=== PATIENT | male | born 1980 | race Caucasian/White ===

== ENCOUNTER 2022-08-27 14:10 | Emergency (ER) | payer MEDICAID ==
[~2022-08-27] VITALS: Ht 172.7 cm; Wt 82.0 kg
[2022-08-27 15:20] VITALS: BP 108/71
== END 2022-08-27 15:52 | disposition left against medical advice (07) ==
LOC: ER 14:10
DX: M25.562 Pain in left knee (principal); M25.552 Pain in left hip; R07.89 Other chest pain; M25.511 Pain in right shoulder; Z53.21 Procedure and treatment not carried out due to patient leaving prior to being seen by health care provider

== ENCOUNTER 2022-09-26 00:31 | Emergency (ER) | payer MEDICAID ==
[2022-09-26 03:28] VITALS: BP 145/98
[2022-09-26] MEDS ORDERED: ACETAMINOPHEN/CODEINE#3 (300/30mg) TAB PO ONE (03:45)
[2022-09-26] MEDS ORDERED: ACE3T PO ×3 (05:03→05:22)
== END 2022-09-26 05:57 | disposition left against medical advice (07) ==
LOC: ER 00:31
DX: S09.8XXA Other specified injuries of head, initial encounter (principal); K08.89 Other specified disorders of teeth and supporting structures; G62.9 Polyneuropathy, unspecified; X58.XXXA Exposure to other specified factors, initial encounter; Y93.89 Activity, other specified; Y92.89 Other specified places as the place of occurrence of the external cause; Y99.8 Other external cause status
CPT/HCPCS: 70450

== ENCOUNTER 2023-02-25 15:31 | Inpatient (IN) | payer MEDICAID ==
[~2023-02-25] VITALS: Ht 177.8 cm; Wt 78.0 kg
[~2023-02-25 15:31] MED LIST: ACE3T PO
[2023-02-25] MEDS ORDERED: PANTOPRAZOLE 40 MG/10 ML VIAL INJ IV ONE (16:15)
[2023-02-25] MEDS ORDERED: ONDANSETRON HCL 4 MG/2 ML VIAL IV ONE ×2 (16:15→23:30)
[2023-02-25] MEDS ORDERED: KETAMINE 50mg/ML 10ml Vial (500mg/10ml) IV ONE (16:15)
[2023-02-25] MEDS ORDERED: SODIUM CHLORIDE 0.9% 1,000 ML IV ONE ×3 (16:15→17:45)
[2023-02-25 16:48] VITALS: PULSE 104; RESP 15; O2SAT 92
[2023-02-25 17:04] LABS: Basophils # (auto) 0.1 10 ^3/uL (0-0.2); Basophils % (auto) 0.7 % (0.0-2.0); Eosinophils # (auto) 0 10 ^3/uL (0-0.8); Hemoglobin 16.1 g/dL (13.5-17.5); Lymphocytes # (auto) 1.4 10 ^3/uL (0.4-5.4); Lymphocytes % (auto) 10.1 % (10.0-50.0); Mean Corpuscular Hemoglobin 30.6 pg (28.0-32.0); Mean Corpuscular Hgb Conc. 33.6 g/dL (32.0-36.0); Mean Corpuscular Volume 90.9 fL (80.0-100.0); Monocytes # (auto) 0.6 10 ^3/uL (0-1.3); Monocytes % (auto) 4.6 % (0.0-12.0); Neutrophils # (auto) 11.5 10 ^3/uL (1.6-8.6); Neutrophils % (auto) 84.6 % (37.0-80.0); Red Blood Cells 5.28 10^6/uL (4.5-5.90); Red Cell Distribution Width 14.8 % (11.8-14.3); White Blood Cell 13.6 10^3/uL (4.4-10.8)
[2023-02-25 17:19] LABS: INR 1.01 (0.9-1.15); Partial Thromboplastin Time 27.1 SEC (24.5-34.5); Prothrombin Time 10.6 sec (9.3-11.8)
[2023-02-25 17:23] LABS: Alanine Aminotransferase 28 U/L (7-40); Albumin 4.9 g/dL (3.2-4.8); Alkaline Phosphatase 51 U/L (46-116); Aspartate Aminotransferase 67 U/L (13-40); BUN/Creatinine Ratio 6.3 (10.0-20.0); Bilirubin, Total 0.6 mg/dL (0.2-1.0); Blood Alcohol 299.6 mg/dL (<10); Blood Urea Nitrogen 6 mg/dL (9-23); Chloride 110 mmol/L (98-107); Glucose 90 mg/dL (74-106); Potassium 3.8 mmol/L (3.5-5.1); Sodium 143 mmol/L (136-145); Total Protein 7.6 g/dL (5.7-8.2)
[2023-02-25 17:40] LABS: Creatine Kinase IFCC 2878 U/L (46-171)
[2023-02-25] MEDS ORDERED: PROPOFOL 10 MG/ML 20 ML IV ONE (18:15)
[2023-02-25 19:30] VITALS: PULSE 73; RESP 18; O2SAT 100
[2023-02-25] MEDS ORDERED: MORPHINE SULFATE 4 MG/ML SYR/VIAL IV ONE (23:30)
[2023-02-25 23:44] LABS: Urine Bacteria NONE SEEN /hpf (None Seen); Urine Blood Negative /uL (Negative); Urine Clarity Clear (Clear); Urine Protein, UAD Negative (Negative); Urine Specific Gravity 1.009 (1.001-1.035); Urine Urobilinogen Normal (Negative); Urine WBC <1 /hpf (0 - 3)
[2023-02-25 23:45] LABS: Urine Color Straw (Yellow)
[2023-02-26 00:05] LABS: Amphetamine Screen, Urine Neg (NEGATIVE); Barbiturate Scree,Urine Neg (NEGATIVE); Benzodiazephine Screen, Urine Neg (NEGATIVE); Cannabinoid Screen, Urine Pos (NEGATIVE); Cocaine Screen, Urine Neg (NEGATIVE); Opiate Scree,Urine Neg (NEGATIVE); Phencyclidine Screen, Urine Neg (NEGATIVE)
[2023-02-26] MEDS ORDERED: cefTRIAXone 1GM/50ML D5W 50 ML IV ONE (00:30)
[2023-02-26] MEDS ORDERED: DOCUSATE SOD 100 MG CAP PO PRN (00:30)
[2023-02-26] MEDS ORDERED: NITROGLYCERIN 0.4 MG SL TAB SL PRN (00:30)
[2023-02-26] MEDS ORDERED: ACETAMINOPHEN 325 MG TAB PO PRN (00:30)
[2023-02-26] MEDS ORDERED: MORPHINE SULFATE INJ 2 MG/ml SYRG ONE (02:37)
[2023-02-26] MEDS: MORPHINE SULFATE INJ 2 MG/ml SYRG IV PRN ×4 (02:41→22:54)
[2023-02-26] MEDS: ONDANSETRON HCL 4 MG/2 ML VIAL IV PRN ×3 (02:41→22:53)
[2023-02-26] MEDS ORDERED: DIVA1TAB58 PO (03:24)
[2023-02-26 05:00] VITALS: BP 128/79; PULSE 83; RESP 18; TEMP 97.7; O2SAT 92
[2023-02-26] MEDS: HYDROcodone-ACET 5/325MG TAB PO PRN ×4 (06:27→21:14)
[2023-02-26 09:00] VITALS: BP 122/82; PULSE 73; RESP 20; TEMP 98; O2SAT 97
[2023-02-26] MEDS: cefTRIAXone 1GM/50ML D5W 50 ML IV SCH (09:07)
[2023-02-26] MEDS: MULTIPLE VITAMIN TAB PO SCH (09:13)
[2023-02-26] MEDS: PANTOPRAZOLE 40 MG/10 ML VIAL INJ IV SCH (09:13)
[2023-02-26] MEDS: FOLIC ACID 1 MG TAB PO SCH (09:13)
[2023-02-26] MEDS: THIAMINE HCL 100 MG TAB PO SCH (09:13)
[2023-02-26 11:33] LABS: Basophils # (auto) 0.1 10 ^3/uL (0-0.2); Basophils % (auto) 0.5 % (0.0-2.0); Eosinophils # (auto) 0.1 10 ^3/uL (0-0.8); Hematocrit 43.7 % (41.0-53.0); Hemoglobin 14.6 g/dL (13.5-17.5); Lymphocytes # (auto) 1.3 10 ^3/uL (0.4-5.4); Lymphocytes % (auto) 12.9 % (10.0-50.0); Mean Corpuscular Hemoglobin 30.6 pg (28.0-32.0); Mean Corpuscular Hgb Conc. 33.3 g/dL (32.0-36.0); Mean Corpuscular Volume 91.9 fL (80.0-100.0); Monocytes # (auto) 0.8 10 ^3/uL (0-1.3); Monocytes % (auto) 8.4 % (0.0-12.0); Neutrophils # (auto) 7.8 10 ^3/uL (1.6-8.6); Neutrophils % (auto) 77.2 % (37.0-80.0); Nucleated Red Blood Cells % 0.1 %; Red Blood Cells 4.75 10^6/uL (4.5-5.90); Red Cell Distribution Width 14.5 % (11.8-14.3); White Blood Cell 10.1 10^3/uL (4.4-10.8)
[2023-02-26 11:57] LABS: Alanine Aminotransferase 26 U/L (7-40); Albumin 4.2 g/dL (3.2-4.8); Alkaline Phosphatase 49 U/L (46-116); Anion Gap 11.7 (5-15); Aspartate Aminotransferase 61 U/L (13-40); BUN/Creatinine Ratio 7.7 (10.0-20.0); Bilirubin, Total 1.5 mg/dL (0.2-1.0); Blood Urea Nitrogen 6 mg/dL (9-23); Calcium 8.5 mg/dL (8.5-10.1); Carbon Dioxide 20.3 mmol/L (20-30); Chloride 103 mmol/L (98-107); Glucose 94 mg/dL (74-106); Potassium 3.8 mmol/L (3.5-5.1); Total Protein 6.6 g/dL (5.7-8.2)
[2023-02-26] MEDS: FOLIC ACID 1 MG, MULTIPLE VITAMIN 10 ML, MAGNESIUM SULF SDV 50% 8 MEQ, THIAMINE INJ 100... INJ SCH ×5 (12:00)
[2023-02-26 12:01] LABS: Sodium 135 mmol/L (136-145)
[2023-02-26 13:00] VITALS: BP 158/77; PULSE 78; RESP 20; TEMP 98.2; O2SAT 97
[2023-02-26 17:00] VITALS: PULSE 70; RESP 20; TEMP 98.4; O2SAT 98
[2023-02-26 22:00] VITALS: BP 128/80; PULSE 97; RESP 18; TEMP 98.4; O2SAT 93
[2023-02-27] VITALS (7 sets, daily range): BP systolic 116–130; BP diastolic 70–88; PULSE 63–83; RESP 16–18; TEMP 98.3–99; O2SAT 95–99
[2023-02-27] MEDS: ONDANSETRON HCL 4 MG/2 ML VIAL IV PRN ×2 (02:57→06:53)
[2023-02-27] MEDS: MORPHINE SULFATE INJ 2 MG/ml SYRG IV PRN ×5 (02:57→21:27)
[2023-02-27 05:59] LABS: Alanine Aminotransferase 23 U/L (7-40); Albumin 4.2 g/dL (3.2-4.8); Alkaline Phosphatase 49 U/L (46-116); Anion Gap 6.8 (5-15); Aspartate Aminotransferase 45 U/L (13-40); Bilirubin, Total 0.9 mg/dL (0.2-1.0); Calcium 8.5 mg/dL (8.7-10.4); Carbon Dioxide 25.2 mmol/L (20-30); Chloride 102 mmol/L (98-107); Glucose 114 mg/dL (74-106); Potassium 3.3 mmol/L (3.5-5.1); Sodium 134 mmol/L (136-145); Total Protein 6.6 g/dL (5.7-8.2)
[2023-02-27 06:06] LABS: Basophils # (auto) 0.1 10 ^3/uL (0-0.2); Basophils % (auto) 0.5 % (0.0-2.0); Eosinophils # (auto) 0.1 10 ^3/uL (0-0.8); Hematocrit 45.3 % (41.0-53.0); Lymphocytes # (auto) 1.7 10 ^3/uL (0.4-5.4); Lymphocytes % (auto) 14.1 % (10.0-50.0); Mean Corpuscular Hemoglobin 30.4 pg (28.0-32.0); Mean Corpuscular Volume 92.1 fL (80.0-100.0); Monocytes # (auto) 0.9 10 ^3/uL (0-1.3); Monocytes % (auto) 7.7 % (0.0-12.0); Neutrophils # (auto) 9.3 10 ^3/uL (1.6-8.6); Neutrophils % (auto) 76.7 % (37.0-80.0); Red Blood Cells 4.92 10^6/uL (4.5-5.90); Red Cell Distribution Width 14.3 % (11.8-14.3); White Blood Cell 12.1 10^3/uL (4.4-10.8)
[2023-02-27 06:13] LABS: BUN/Creatinine Ratio 6.3 (10.0-20.0); Blood Urea Nitrogen < 5 mg/dL (9-23)
[2023-02-27] MEDS: HYDROcodone-ACET 5/325MG TAB PO PRN ×2 (09:46→19:34)
[2023-02-27] MEDS: THIAMINE HCL 100 MG TAB PO SCH (09:46)
[2023-02-27] MEDS: FOLIC ACID 1 MG TAB PO SCH (09:46)
[2023-02-27] MEDS: cefTRIAXone 1GM/50ML D5W 50 ML IV SCH (09:47)
[2023-02-27] MEDS: PANTOPRAZOLE 40 MG/10 ML VIAL INJ IV SCH (09:47)
[2023-02-27] MEDS: MULTIPLE VITAMIN TAB PO SCH (09:47)
[2023-02-27] MEDS: FOLIC ACID 1 MG, MULTIPLE VITAMIN 10 ML, MAGNESIUM SULF SDV 50% 8 MEQ, THIAMINE INJ 100... INJ SCH ×5 (13:21)
[2023-02-28] VITALS (7 sets, daily range): BP systolic 115–133; BP diastolic 68–90; PULSE 65–92; RESP 17–21; TEMP 98–98.5; O2SAT 95–98
[2023-02-28] MEDS: MORPHINE SULFATE INJ 2 MG/ml SYRG IV PRN ×7 (01:31→21:39)
[2023-02-28] MEDS: ONDANSETRON HCL 4 MG/2 ML VIAL IV PRN (05:43)
[2023-02-28] MEDS: PANTOPRAZOLE 40 MG/10 ML VIAL INJ IV SCH (10:03)
[2023-02-28] MEDS: cefTRIAXone 1GM/50ML D5W 50 ML IV SCH (10:03)
[2023-02-28] MEDS: THIAMINE HCL 100 MG TAB PO SCH (10:07)
[2023-02-28] MEDS: MULTIPLE VITAMIN TAB PO SCH (10:07)
[2023-02-28] MEDS: FOLIC ACID 1 MG TAB PO SCH (10:08)
[2023-02-28] MEDS: FOLIC ACID 1 MG, MULTIPLE VITAMIN 10 ML, MAGNESIUM SULF SDV 50% 8 MEQ, THIAMINE INJ 100... INJ SCH ×5 (13:20)
[2023-02-28] MEDS: HYDROcodone-ACET 5/325MG TAB PO PRN (20:34)
== END 2023-02-28 22:16 | disposition short-term general hospital (02) | DRG 342 ==
LOC: ER 15:31 → EDBD 15:31 → OVERFLOW 02-26 00:26 → CENTRAL 02-26 03:10
PROVIDERS: ADMIT Nurse Practitioner Family; ATTEND Nurse Practitioner Acute Care
PROC: 0RSMXZZ Reposition Left Elbow Joint, External Approach (ICD-10-PCS; principal; 2023-02-26)
DX: S53.105A Unspecified dislocation of left ulnohumeral joint, initial encounter (principal); M62.82 Rhabdomyolysis; R65.10 Systemic inflammatory response syndrome (SIRS) of non-infectious origin without acute organ dysfunction; E87.1 Hypo-osmolality and hyponatremia; D72.829 Elevated white blood cell count, unspecified; F10.129 Alcohol abuse with intoxication, unspecified; G56.32 Lesion of radial nerve, left upper limb; Z82.5 Family history of asthma and other chronic lower respiratory diseases; W18.39XA Other fall on same level, initial encounter; Y93.89 Activity, other specified; Y92.098 Other place in other non-institutional residence as the place of occurrence of the external cause; Y99.8 Other external cause status
CPT/HCPCS: 24600; 36415; 70450; 71045; 73070; 73080; 80053; 80307; 80320; 81001; 82550; 83735; 84484; 85025; 85610; 85730; 96361; 96365; 96375; 96376; 99291; C9113; G0378; J0696; J2405; J2704

== ENCOUNTER 2023-08-15 23:29 | Emergency (ER) | payer MEDICAID ==
[~2023-08-15] VITALS: Ht 175.3 cm; Wt 68.0 kg
[~2023-08-15 23:29] MED LIST changes: -ACE3T PO; +DIVA1TAB58 PO
[2023-08-16] MEDS: MORPHINE SULFATE INJ 2 MG/ml SYRG IM ONE (02:47)
[2023-08-16] MEDS: ONDANSETRON ODT 4 MG TAB PO ONE (02:47)
[2023-08-16 04:06] VITALS: BP 137/80; PULSE 81; RESP 18; TEMP 98.8; O2SAT 99
[2023-08-16] MEDS ORDERED: CYCL-837 PO (04:09)
== END 2023-08-16 04:25 | disposition home or self-care (01) ==
LOC: ER 23:29
DX: S16.1XXA Strain of muscle, fascia and tendon at neck level, initial encounter (principal); S29.012A Strain of muscle and tendon of back wall of thorax, initial encounter; S39.012A Strain of muscle, fascia and tendon of lower back, initial encounter; R51.9 Headache, unspecified; W01.0XXA Fall on same level from slipping, tripping and stumbling without subsequent striking against object, initial encounter; Y93.89 Activity, other specified; Y92.091 Bathroom in other non-institutional residence as the place of occurrence of the external cause; Y99.8 Other external cause status
CPT/HCPCS: 70450; 72125; 72128; 72131; 96372; 99285; J2270; Q0162

== ENCOUNTER 2024-12-17 11:32 | Inpatient (IN) | payer MEDICAID ==
[~2024-12-17] VITALS: Ht 177.8 cm; Wt 75.8 kg
[~2024-12-17 11:32] MED LIST changes: +CYCL-837 PO
--- NOTE | 2024-12-17 11:45 | ED.PDOC ---
GI ASSESSMENT HPI Comments 44 y.o male presents diaphoretic to the ED via EMS for a chief complaint of RLQ pain that started a couple hour ago while passing a BM. Patient describes pain as sharp, radiating to his back, is constant with a 10/10 pain level. Patient denies any nausea, vomiting, diarrhea, fever, chills. Patient has worse pain on palpation with no alleviating factors despite EMS administrating 1 gram of Tylenol alongside 4mg of Zofran en route. Patient has a medical history of gout and seizures. He reports occasional use of marijuana and alcohol but no tobacco use. Time Seen by MD: 11:36 Primary Care Provider: MARIBELL Reviewed Notes: Nurses Notes, Lawn Care Specialist Notes, Medications, Allergies Allergies: Coded Allergies: NO KNOWN ALLERGIES (Unverified , 09/26/22) Home Meds Active Scripts Cyclobenzaprine Hcl (Cyclobenzaprine Hcl) 5 Mg Tab, 1 TAB PO QHSP, #14 TAB 0 Refills Prov:HARRY QUIROZ 08/16/23 Reported Medications Divalproex Sodium (Divalproex Sodium Dr) 250 Mg Tab, 1 TAB PO BID 02/26/23 Information Source: Patient, Emergency Med Personnel Mode of Arrival: EMS Timing: Hours Duration: Since onset Prehospital treatment: Pain Meds (1 gram of Tylenol ), Treatment (4mg of Zofran PO) Quality: Sharp Vomitus: None Stool: Normal Severity: Moderate Recent: None Recent Hx of: None Pain Location: RLQ Modifying Factors: Nothing Associated sign and symptoms: Abdominal Pain Past Medical History PAST MEDICAL HISTORY: Gout, Seizures Surgical History: Denies all surgeries Family History Family History: Unknown Social History Smoker: Non-Smoker Alcohol: Occasionally Drugs: Marijuana Lives In: Home Constitutional: reports: diaphoresis; denies: chills, fatigue, fever, malaise, sweats, weakness, others EENTM: denies: blurred vision, double vision, ear bleeding, ear discharge, ear drainage, ear pain, ear ringing, eye pain, eye redness, hearing loss, mouth pain, mouth swelling, nasal discharge, nose bleeding, nose congestion, nose pain, photophobia, tearing, throat pain, throat swelling, voice changes, others Respiratory: denies: cough, hemoptysis, orthopnea, SOB at rest, shortness of breath, SOB with excertion, stridor, wheezing, others Cardiovascular: denies: chest pain, dizzy spells, diaphoresis, Dyspnea on exertion, edema, irregular heart beat, left arm pain, lightheadedness, palpitat ions, PND, syncope, others Gastrointestinal: reports: abdominal pain; denies: abdomen distended, blood streaked bowels, constipated, diarrhea, dysphagia, difficulty swallowing, hematemesis, melena, nausea, poor appetite, poor fluid intake, rectal bleeding, rectal pain, vomiting, others Genitourinary: denies: burning, dysuria, flank pain, frequency, hematuria, incontinence, penile discharge, penile sore, pain, testicle pain, testicle swelling, urgency, others Neurological: denies: dizziness, fainting, headache, left sided numbness, left sided weakness, numbness, paresthesia, pre-existing deficit, right sided numbness, right sided weakness, seizure, speech problems, tingling, tremors, weakness, others Musculoskeletal: denies: back pain, gout, joint pain, joint swelling, muscle p ain, muscle stiffness, neck pain, others Integumetry: denies: bruises, change in color, change in hair/nails, dryness, laceration, lesions, lumps, rash, wounds, others Allergic/Immunocompromised: denies: Difficulty Healing, Frequent Infections, Hives, Itching, others Hematologic/Lymphatic: denies: anemia, blood clots, easy bleeding, easy bruising, swollen glands, others Endocrine: denies: excessive hunger, excessive sweating, excessive thirst, excessive urination, flushing, intolerance to cold, intolerance to heat, unexplained weight gain, unexplained weight loss, others Psychiatric: denies: anxiety, bipolar disorder, depression, hopeless, panic disorder, schizophrenia, sleepless, suicidal, others All Other Systems: Reviewed and Negative Physical Exam General Appearance: Moderate Distress HEENT: Normal ENT Inspection, Pharynx Normal, TMs Normal Neck: Full Range of Motion, Non-Tender, Normal, Normal Inspection Respiratory: Chest Non-Tender, Lungs Clear, No Accessory Muscle Use, No Respiratory Distress, Normal Breath Sounds Cardiovascular: No Edema, No JVD, No Murmur, No Gallop, Normal Peripheral Pulses, Regular Rate/Rhythm Breast Exam: Deferred Gastrointestinal: No Organomegaly, Non Tender, No Pulsatile Mass, Normal Bowel Sounds, Soft Genitalia: Deferred Pelvic: Deferred Rectal: Deferred Extremities: No calf tenderness, Normal capillary refill, No pedal edema Musculoskeletal : Apperance: Normal Neurologic: general office assistant II-XII nml as Tested, No Motor Deficits, Normal Affect, Normal Mood, No Sensory Deficits, Other (The patient is answering questions but is extremely anxious and seems to be in a significant amount of pain. The patient is somewhat diaphoretic) Cerebellar Function: Unable to Test Reflexes: Normal Skin: Diaphoresis, Pallor, Other (Cool to touch) Lymphatic: No Adenopathy EKG EKG : Pulse Rate (adult): 125 [place]: Normal Cardiac Rhythm: ST ST: Normal Was a procedure done? 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) Indication: Hypotension, CVP monitoring, Volume resuscitation, Suspected infection Room prepared for procedure: Yes Community Association Manager performed hand hygien: Yes Maximal sterile barrier precau: Mask/Eye shield, Sterile gown, Cap, Sterlie gloves, Large sterlie drape Skin Preparation: Chlorhexidine gluconate Skin preparation completely dr: Yes Insertion site: Right, Internal jugular Central line catheter type: [id number] Number of lumens: 3 Central line exchanged over a: No Antiseptic ointment applied to: Yes Post Assessment: Chest X-Ray, Proper placement, No Pneumothorax Informed consent obtained: No Risks/benefits/alt described: No Intubation Indication: Respiratory Insufficiency Prep: Preoxygenation Pretreated with: Sedation (Etomidate 20 mg IV push) Medicated with: Vecuronium (50 mg IV push) Intubation Approach: Orotracheal Intubation size: cm (8.0) Informed consent obtained: No Risks/benefits/alt described: No GI differential Dx Differential Diagnosis: AAA, Appendicitis, Bowel Obstruction, Gastroenteritis X-Ray, Labs, Meds, VS Vital Signs Date Time Temp Pulse Resp B/P (MAP) Pulse Ox O2 Delivery O2 Flow Rate FiO2 12/17/24 17:33 157 12/17/24 17:30 100.3 170 19 176/131 (146) 99 100.3 12/17/24 17:26 174 12/17/24 17:15 100.3 150 21 166/123 (137) 100 100.3 12/17/24 17:10 100.3 153 24 160/117 (131) 100 100.3 12/17/24 17:06 160/117 12/17/24 17:05 133 45 147/109 (122) 99 12/17/24 17:05 147/109 12/17/24 16:27 56 12/17/24 15:30 136 25 142/105 (117) 94 12/17/24 15:06 100 22 133/101 12/17/24 14:36 100 22 133/101 12/17/24 14:00 100 22 133/101 (112) 97 12/17/24 13:08 62 47 141/100 12/17/24 12:58 102 37 128/88 (101) 95 12/17/24 12:38 81 26 145/103 12/17/24 12:37 145/103 12/17/24 12:32 81 26 145/103 12/17/24 12:30 80 22 145/103 (117) 95 12/17/24 12:10 98.2 98 18 159/102 (121) 98 98.2 12/17/24 12:04 65 21 124/102 12/17/24 12:00 Nasal Cannula* 2 28 12/17/24 12:00 98.2 65 21 124/102 (109) 98 98.2 Lab Test 12/17/24 15:25 12/17/24 13:20 12/17/24 13:13 12/17/24 13:09 Range/Units Troponin I High Sensitivity < 3 L < 3 L </=54 ng/L Urine Color Yellow Yellow Urine Clarity Clear Clear Urine pH 6.0 5.0-9.0 Urine Specific [place] < 1.050 H 1.001-1.035 Urine Protein Negative Negative Urine Ketones Trace Negative Urine Blood Negative Negative /uL Urine Nitrite Negative Negative Urine Bilirubin Negative Negative Urine Urobilinogen Normal Negative mg/dL Urine Leukocyte Esterase Negative Negative /uL Urine RBC 1 0 - 3 /hpf Urine Microscopic WBC 1 0-3 /HPF Urine Squamous Epithelial Cells None seen <5 /hpf Urine Bacteria None seen None Seen /hpf Urine Mucus Few None Seen Urine Glucose Normal Normal mg/dL Blood Gas Specimen Type Arterial Blood Gas Sample Site Left radial Blood Gas Patient Temperature 37.0 Arterial Blood Date Drawn [id number] Arterial Blood pH 7.403 7.350-7.450 Arterial Blood Partial Pressure CO2 33.4 L 35.0-48.0 mmHg Arterial Blood Partial Pressure O2 106.2 83.0-108.0 mmHg Arterial Blood HCO3 20.4 L 21.0-28.0 mmol/L Arterial Blood Oxygen Saturation 97.3 94.0-98.0 % Arterial Blood Base Excess -3.2 L -2.0-3.0 mmol/L Arterial Blood Oxyhemoglobin 96.4 94.0-98.0 % Arterial Blood Carboxyhemoglobin 0.3 L 0.5-1.5 % Arterial Blood Methemoglobin 0.6 0.0-1.5 % Manan Test Yes Blood Gas Total Hemoglobin 18.10 *H 13.5-17.5 g/dL Blood Gas Liter Flow 3.00 Blood Gas Modality Nasal cannula FiO2 % 32.0 Blood Gas Critical Value Read Back Yes Blood Gas Notified Whom Cedric moreira Blood Gas Notified Time [id number] Blood Gas Notified By [place]ans[place] inspector packer Test 12/17/24 11:58 Range/Units White Blood Count 11.5 H 4.4-10.8 10^3/uL Red Blood Count 5.62 4.5-5.90 10^6/uL Hemoglobin 17.8 H 13.5-17.5 g/dL Hematocrit 51.4 41.0-53.0 % Mean Corpuscular Volume 91.5 80.0-100.0 fL Mean Corpuscular Hemoglobin 31.6 28.0-32.0 pg Mean Corpuscular Hemoglobin Concent 34.6 32.0-36.0 g/dL Red Cell Distribution Width 14.4 H 11.8-14.3 % Platelet Count 373 140-450 10^3/uL Mean Platelet Volume 6.3 L 6.9-10.8 fL Neutrophils (%) (Auto) 86.7 H 37.0-80.0 % Lymphocytes (%) (Auto) 10.0 10.0-50.0 % Monocytes (%) (Auto) 2.3 0.0-12.0 % Eosinophils (%) (Auto) 0.7 0.0-7.0 % Basophils (%) (Auto) 0.3 0.0-2.0 % Neutrophils # (Auto) 9.9 H 1.6-8.6 10 ^3/uL Lymphocytes # (Auto) 1.1 0.4-5.4 10 ^3/uL Monocytes # (Auto) 0.3 0-1.3 10 ^3/uL Eosinophils # (Auto) 0.1 0-0.8 10 ^3/uL Basophils # (Auto) 0 0-0.2 10 ^3/uL Nucleated Red Blood Cells 0.1 % Sodium Level 141 136-145 mmol/L Potassium Level 3.7 3.5-5.1 mmol/L Chloride Level 108 H 98-107 mmol/L Carbon Dioxide Level 21 20-31 mmol/L Anion Gap 12 5-15 Blood Urea Nitrogen 10 9-23 mg/dL Creatinine 0.80 0.700-1.30 mg/dL Glomerular Filtration Rate Calc 113 >90 mL/min BUN/Creatinine Ratio 12.5 10.0-20.0 Serum Glucose 149 H 74-106 mg/dL Hemoglobin A1c 5.3 <5.7 % A1C Calcium Level 9.4 8.7-10.4 mg/dL Total Bilirubin 0.3 0.2-1.0 mg/dL Aspartate Amino Transferase (AST) 19 13-40 U/L Alanine Aminotransferase (ALT) 13 7-40 U/L Alkaline Phosphatase 54 46-116 U/L Troponin I High Sensitivity < 3 L </=54 ng/L Total Protein 7.1 5.7-8.2 g/dL Albumin 4.7 3.2-4.8 g/dL Lipase 38 12-53 U/L Current Medications Medications (Trade) Dose Ordered Sig/Sherron Route Start Time Stop Time Status Last Admin Ondansetron HCl (Zofran) 4 mg ONCE ONCE IV 12/17/24 11:45 12/17/24 11:46 DC 12/17/24 12:05 Hydromorphone HCl (Dilaudid Injection) 1 mg ONCE ONCE IV 12/17/24 11:45 12/17/24 11:46 DC 12/17/24 12:04 Sodium Chloride 500 ml @ 500 mls/hr Q1H ONCE IVB 12/17/24 11:45 12/17/24 12:44 DC 12/17/24 12:05 Hydromorphone HCl (Dilaudid Injection) 1 mg ONCE ONCE IV 12/17/24 12:30 12/17/24 12:32 DC 12/17/24 12:38 Ondansetron HCl (Zofran) 4 mg ONCE ONCE IV 12/17/24 12:30 12/17/24 12:32 DC 12/17/24 12:37 Hydralazine HCl (Apresoline Injection) 15 mg ONCE ONCE IV 12/17/24 12:45 12/17/24 12:46 DC 12/17/24 12:37 Hydromorphone HCl (Dilaudid Injection) 1 mg ONCE ONCE IV 12/17/24 14:30 12/17/24 14:31 DC 12/17/24 14:36 Prochlorperazine Edisylate (Compazine Inj) 10 mg ONCE ONCE IV 12/17/24 14:30 12/17/24 14:31 DC 12/17/24 14:36 Lorazepam (Ativan Inj) 1 mg ONCE ONCE IV 12/17/24 15:30 12/17/24 15:31 DC 12/17/24 15:32 Metronidazole 100 ml @ 100 mls/hr ONCE ONCE IV 12/17/24 15:30 12/17/24 16:29 DC 12/17/24 17:41 Pantoprazole Sodium (Protonix) 40 mg ONCE ONCE IV 12/17/24 15:30 12/17/24 15:54 DC 12/17/24 17:41 Ceftriaxone Sodium 50 ml @ 100 mls/hr ONCE ONCE IV 12/17/24 15:30 12/17/24 15:59 DC 12/17/24 17:41 Haloperidol Lactate (Haldol) 5 mg ONCE ONCE IM 12/17/24 16:30 12/17/24 16:31 DC 12/17/24 16:23 Diphenhydramine HCl (Benadryl Injection) 25 mg ONCE ONCE IV 12/17/24 16:30 12/17/24 16:31 DC 12/17/24 16:33 Ketorolac Tromethamine (Toradol Injection) 15 mg ONCE ONCE IV 12/17/24 16:45 12/17/24 16:46 DC 12/17/24 16:34 Rocuronium Wendel 100 mg ONCE ONCE IV 12/17/24 17:00 12/17/24 17:01 DC 12/17/24 17:06 Etomidate 20 mg ONCE ONCE IV 12/17/24 17:00 12/17/24 17:01 DC 12/17/24 17:05 Midazolam HCl 50 ml @ 1 mls/hr Q24H IV 12/17/24 17:00 12/17/24 17:05 CHEST RADIOGRAPH IMPRESSION: Multifocal airspace disease Patient came and writhing in significant amount of pain The patient was also very hypertensive because of the pain We did do a CAT scan of the abdomen, pelvis and chest with IV contrast The results show: IMPRESSION: Diffuse colitis with small perihepatic ascites and small amount of ascites present. Colonoscopy recommended after patient's acute symptoms resolve. [No acute finding involving chest, abdomen or pelvis. EXAM: XR Chest, 1 View IMPRESSION: 1. Bibasilar atelectasis or pneumonia. 2. Enteric tube is not clearly visualized. Clinical correlation is r ecommended. CHEST RADIOGRAPH IMPRESSION: Multifocal airspace disease The patient was given Zofran 4 mg IV push for the nausea as well as Dilaudid IV push for the pain The patient is being admitted for intractable abdominal pain The patient was then given a repeat dose Zofran The patient is being admitted at this time. The patient is being given Compazine 10 mg IV push The CBC shows an elevated white blood cell count 11.5 The rest of the CBC is within normal limits The chemistry panel is within normal limits. The patient is being admitted at this time The patient continued to be somewhat anxious and tachycardic. The patient became somewhat diaphoretic We are concerned about the patient's oxygen saturation capability to maintain his airway. The patient was then immediately intubated and a central line was also placed. The patient is being admitted to the ICU at this time A Martinez catheter is being placed An NG-tube is also being placed Images Reviewed?: Images reviewed and evaluated by me Time of 1ST Reevaluation: 12:30 Reevaluation 1ST: Unchanged Patient Education/Counseling: Diagnosis, Treatment, Prognosis Family Education/Counseling: No Family Present SEPSIS Sepsis Screen Physician Orders Heplock Iv (12/17/24 11:41) Troponin-I Hs (12/18/24 00:00) Health Advocate (12/17/24 12:14) Blood Pressure (12/17/24 12:14) Pulse Oximetry (12/17/24 12:14) Chest Portable (12/17/24 12:14) Electrocardigram (12/17/24 13:14) Electrocardigram (12/17/24 15:14) Abg W/ Co-Ox (12/17/24 12:30) Ct Chest/Ab/Pl W Con- Iv Only (12/17/24 12:31) Hydromorphone Injection (Dilaudid Inject (12/17/24 15:30) Metronidazole 500mg/100ml (Flagyl 500mg/ (12/17/24 22:00) Pantoprazole (Protonix) (12/18/24 10:00) Allergies (12/17/24 15:20) Code Status (12/17/24 15:20) Sodium Chloride Lock (Saline Lock Ns) (12/17/24 22:00) Oxygen Per Hour (12/17/24 15:20) Hydrocodone-Acet 5/325mg Tab ([place] 5/32 (12/17/24 15:30) Ondansetron Hcl (Zofran) (12/17/24 15:30) Docusate Sodium Capsule (Colace Capsule) (12/17/24 15:30) Complete Blood Count (12/18/24 04:00) Comprehensive Metabolic Panel (12/18/24 04:00) Condition: Serious (12/17/24 15:20) Clear Liq Diet (12/17/24 Dinner) Bedrest With Bathroom Privileg (12/17/24 15:20) Sequential Compression Device (12/17/24 ) * Gi Dvh Cooky Machine Operator (12/17/24 15:28) Midazolam Drip 50 Mg/50ml (Versed Drip 5 (12/17/24 17:00) Rass Sedation Scale Q1HR (12/17/24 16:52) Communication Order (12/17/24 16:52) Drug Profile Blood (6 Drugs) (12/17/24 17:04) Stool Wbc (12/17/24 17:10) Stool Occult Blood (12/17/24 17:10) Stool Bacterial Culture (12/17/24 17:10) Clostridium Difficile Toxin (12/17/24 17:10) Chest Xray 1 View (12/17/24 17:11) Respiratory Culture W/ Gs (12/17/24 17:29) Ventilator Orders (12/17/24 17:29) Abg W/ Co-Ox (12/17/24 17:29) Vital Signs Date Time Temp Pulse Resp B/P (MAP) Pulse Ox O2 Delivery O2 Flow Rate FiO2 12/17/24 17:33 157 12/17/24 17:30 100.3 170 19 176/131 (146) 99 100.3 12/17/24 17:26 174 12/17/24 17:15 100.3 150 21 166/123 (137) 100 100.3 12/17/24 17:10 100.3 153 24 160/117 (131) 100 100.3 12/17/24 17:06 160/117 12/17/24 17:05 133 45 147/109 (122) 99 12/17/24 17:05 147/109 12/17/24 16:27 56 12/17/24 15:30 136 25 142/105 (117) 94 12/17/24 15:06 100 22 133/101 12/17/24 14:36 100 22 133/101 12/17/24 14:00 100 22 133/101 (112) 97 12/17/24 13:08 62 47 141/100 12/17/24 12:58 102 37 128/88 (101) 95 12/17/24 12:38 81 26 145/103 12/17/24 12:37 145/103 12/17/24 12:32 81 26 145/103 12/17/24 12:30 80 22 145/103 (117) 95 12/17/24 12:10 98.2 98 18 159/102 (121) 98 98.2 12/17/24 12:04 65 21 124/102 12/17/24 12:00 Nasal Cannula* 2 28 12/17/24 12:00 98.2 65 21 124/102 (109) 98 98.2 Laboratory Tests Test 12/17/24 11:58 White Blood Count 11.5 10^3/uL (4.4-10.8) H Medications Medications Dose Ordered Sig/Sherron Route Start Time Stop Time Status Last Admin Dose Admin Ceftriaxone Sodium 50 ml @ 100 mls/hr ONCE ONCE IV 12/17/24 15:30 12/17/24 15:59 DC 12/17/24 17:41 Diphenhydramine HCl 25 mg ONCE ONCE IV 12/17/24 16:30 12/17/24 16:31 DC 12/17/24 16:33 Etomidate 20 mg ONCE ONCE IV 12/17/24 17:00 12/17/24 17:01 DC 12/17/24 17:05 Haloperidol Lactate 5 mg ONCE ONCE IM 12/17/24 16:30 12/17/24 16:31 DC 12/17/24 16:23 Hydralazine HCl 15 mg ONCE ONCE IV 12/17/24 12:45 12/17/24 12:46 DC 12/17/24 12:37 Hydromorphone HCl 1 mg ONCE ONCE IV 12/17/24 11:45 12/17/24 11:46 DC 12/17/24 12:04 Hydromorphone HCl 1 mg ONCE ONCE IV 12/17/24 12:30 12/17/24 12:32 DC 12/17/24 12:38 Hydromorphone HCl 1 mg ONCE ONCE IV 12/17/24 14:30 12/17/24 14:31 DC 12/17/24 14:36 Ketorolac Tromethamine 15 mg ONCE ONCE IV 12/17/24 16:45 12/17/24 16:46 DC 12/17/24 16:34 Lorazepam 1 mg ONCE ONCE IV 12/17/24 15:30 12/17/24 15:31 DC 12/17/24 15:32 Metronidazole 100 ml @ 100 mls/hr ONCE ONCE IV 12/17/24 15:30 12/17/24 16:29 DC 12/17/24 17:41 Midazolam HCl 50 ml @ 1 mls/hr Q24H IV 12/17/24 17:00 12/17/24 17:05 Ondansetron HCl 4 mg ONCE ONCE IV 12/17/24 11:45 12/17/24 11:46 DC 12/17/24 12:05 Ondansetron HCl 4 mg ONCE ONCE IV 12/17/24 12:30 12/17/24 12:32 DC 12/17/24 12:37 Pantoprazole Sodium 40 mg ONCE ONCE IV 12/17/24 15:30 12/17/24 15:54 DC 12/17/24 17:41 Prochlorperazine Edisylate 10 mg ONCE ONCE IV 12/17/24 14:30 12/17/24 14:31 DC 12/17/24 14:36 Rocuronium Wendel 100 mg ONCE ONCE IV 12/17/24 17:00 12/17/24 17:01 DC 12/17/24 17:06 Sodium Chloride 500 ml @ 500 mls/hr Q1H ONCE IVB 12/17/24 11:45 12/17/24 12:44 DC 12/17/24 12:05 Departure 1 Departure Time of Disposition: 21:13 Impression: Primary Impression: Acute respiratory failure Qualified Codes: J96.00 - Acute respiratory failure, unspecified whether with hypoxia or hypercapnia Disposition: ADMITTED INPATIENT Admit to: ICU Condition: Guarded Critical Care Note Critical Care Time?: Yes (1 hr-critical care time only) Stability Stability form required: Yes Unstable for transfer: ICU, CCU, PCU, KATHIE (Intensive VS monitoring), May require CPR (possible rapid decline), ED Physician Assesment (Clinical assesment) I personally scribed for ISABEL EASLEY MD ([email or web address]) on 12/17/24 at 11:45. Electronically submitted by Dilia Dalton ([facility]). I personally scribed for ISABEL EASLEY MD ([email or web address]) on 12/17/24 at 12:44. Electron[facility] by [facility] ([facility] I personally scribed for ISABEL EASLEY MD ([email or web address]) on 12/17/24 at 18:38. Electronically submitted by Dilia Dalton ([facility] ISABEL EASLEY MD Dec 17, 2024 11:45
[2024-12-17] MEDS: HYDROmorphone HCL 2 MG/ML VL/or syr IV ONE ×3 (12:04→14:36)
[2024-12-17] MEDS: SODIUM CHLORIDE 0.9% 500 ML IVB ONE (12:05)
[2024-12-17] MEDS: ONDANSETRON HCL 4 MG/2 ML VIAL IV ONE ×2 (12:05→12:37)
[2024-12-17 12:35] LABS: Alanine Aminotransferase 13 U/L (7-40); Albumin 4.7 g/dL (3.2-4.8); Alkaline Phosphatase 54 U/L (46-116); Anion Gap 12 (5-15); BUN/Creatinine Ratio 12.5 (10.0-20.0); Blood Urea Nitrogen 10 mg/dL (9-23); Calcium 9.4 mg/dL (8.7-10.4); Carbon Dioxide 21 mmol/L (20-31); Lipase 38 U/L (12-53); Potassium 3.7 mmol/L (3.5-5.1); Sodium 141 mmol/L (136-145); Total Protein 7.1 g/dL (5.7-8.2)
[2024-12-17] MEDS: hydrALAZINE HCL 20 MG/ML VL IV ONE (12:37)
--- NOTE | 2024-12-17 12:38 | DVH ---
CHEST RADIOGRAPH Indication: sob Technique: Single frontal view of the chest was obtained COMPARISON: XY CHEST PORTABLE on DOS: 02/25/23 FINDINGS: Lines and Tubes: None Lungs: Multifocal airspace disease Pleura: No effusion. No pneumothorax. Cardiomediastinal contours: Unremarkable Bones: Unremarkable IMPRESSION: Multifocal airspace disease
[2024-12-17 12:52] LABS: Hemoglobin 17.8 g/dL (13.5-17.5)
[2024-12-17 12:54] LABS: Hematocrit 51.4 % (41.0-53.0); Mean Corpuscular Hemoglobin 31.6 pg (28.0-32.0); Mean Corpuscular Volume 91.5 fL (80.0-100.0); Nucleated Red Blood Cells % 0.1 %
[2024-12-17] MEDS: IOHEXOL 350 MG/ML 100ML IJ ONE (12:54)
[2024-12-17 13:00] LABS: Bilirubin, Total 0.3 mg/dL (0.2-1.0); Chloride 108 mmol/L (98-107); Glucose 149 mg/dL (74-106)
--- NOTE | 2024-12-17 13:15 | DVH ---
Exam: CT CT CHEST/AB/PL W CON- IV ONLY History: pain Comparison Study: None Technique: Multidetector CT of the chest, abdomen and pelvis was performed from lower neck to pubic s ymphysis. Intravenous contrast was administered during this examination. Axial, coronal and sagittal multiplanar reformats were performed by the technologist on a separate workstation. Radiation Dose Information: CT Dose: CTDI volume is 25 mGy. Dose-length product is 250 mGy*cm Findings: Lower neck: normal Lungs: normal Heart/Vascular Structures: normal Lymph Nodes: normal Pleura: normal Lung Bases: No acute or significant lung base finding. Normal heart size. No pleural or pericardial effusion. Liver: The liver is normal in size. No focal lesions. Gallbladder and Biliary Tree: Unremarkable Spleen: Unremarkable Pancreas: The pancreas is grossly normal in appearance. Adrenal Glands: Unremarkable Kidneys: Kidneys are grossly normal without calculi or hydronephrosis. Bladder: Grossly unremarkable for degree of distention. Bowel: The stomach is grossly normal in appearance. Diffuse colitis with small perihepatic ascites an d small amount of ascites present. The appendix is not visualized; however, no secondary findings of acute appendicitis identified. Ascites: Small volume ascites. Lymphadenopathy: No mesenteric, retroperitoneal or periportal lymphadenopathy. Abdominal Wall and Mesentery: Unremarkable. Vasculature: The visualized abdominal aorta is normal in size and caliber. Evaluation of abdominal a nd pelvic vessels is limited due to lack of intravenous contrast. Pelvic Organs: Unremarkable Musculoskeletal: No aggressive focal bony lesions, acute fractures or dislocation. Soft tissues: Unremarkable IMPRESSION: Diffuse colitis with small perihepatic ascites and small amount of ascites present. Colonoscopy recommended after patient's acute symptoms resolve. [No acute finding involving chest, abdomen or pelvis.] All CT scans at this medical facility are performed using dose modulation techniques as appropriate t o a performed exam including the following: Automated exposure control was utilized; adjustment of th e MA and/or KV according to patient size; and use of iterative reconstruction technique.
[2024-12-17 13:17] LABS: Base Excess -3.2 mmol/L (-2.0-3.0)
[2024-12-17] MEDS: PROCHLORPERAZINE EDISYLATE 5 MG/ML 2ML VIAL IV ONE (14:36)
[2024-12-17] MEDS ORDERED: HYDROmorphone HCL 2 MG/ML VL/or syr IV PRN (15:30)
[2024-12-17] MEDS ORDERED: ACETAMINOPHEN 325 MG TAB PO PRN (15:30)
[2024-12-17] MEDS ORDERED: HYDROcodone-ACET 5/325MG TAB PO PRN (15:30)
[2024-12-17] MEDS ORDERED: DOCUSATE SOD 100 MG CAP PO PRN (15:30)
[2024-12-17] MEDS ORDERED: ONDANSETRON HCL 4 MG/2 ML VIAL IV PRN (15:30)
[2024-12-17] MEDS: LORazepam 2MG/ML-1ML VIAL ONE (15:32)
[2024-12-17] MEDS: LORazepam 2MG/ML-1ML VIAL IV ONE (15:32)
[2024-12-17 15:35] LABS: Urine Protein, UAD Negative (Negative)
[2024-12-17] MEDS: HALOPERIDOL LACTATE 5 MG/ML INJ VIAL IM ONE (16:23)
[2024-12-17] MEDS: diphenhdrAMINE HCL 50 MG/1 ML VL IV ONE (16:33)
[2024-12-17] MEDS: KETOROLAC TROMETH 30 MG/ML 1ML VIAL IV ONE (16:34)
[2024-12-17] MEDS: ETOMIDATE (2MG/ML) 20ML VIAL IV ONE ×2 (17:05→17:27)
[2024-12-17] MEDS: MIDAZOLAM DRIP 50 mg/50mL 50 ML IV SCH (17:05)
[2024-12-17] MEDS: ROCURONIUM 10MG/ML 10ML VIAL IV ONE ×2 (17:06→17:27)
--- NOTE | 2024-12-17 17:10 | DVHINCON2 ---
Date of service: Dec 17, 2024 Referring Physician Vito Patel Reason for Consultation Colitis and abdominal pain History of Present Illness 44 y.o male presents diaphoretic to the ED via EMS for a chief complaint of RLQ pain that started a couple hour ago while passing a BM. Patient describes pain as sharp, radiating to his back, is constant with a 10/10 pain level. Patient denies any nausea, vomiting, diarrhea, fever, chills. Patient has worse pain on palpation with no alleviating factors despite EMS administrating 1 gram of Tylenol alongside 4mg of Zofran en route. Patient was seen in the ER currently very agitated and appears to be in [id number] amount of pain. Patient is not settling down and is constantly moving and writhing in pain No active GI bleeding is reported and no diarrhea was reported since presentation. Patient states he has not had any prior colonoscopy Past Medical History Patient has a medical history of gout and seizures. He reports occasional use of marijuana and alcohol but no tobacco use. Anxiety Disorder; substance abuse, unsure if uses amphetamine Past Surgical History Negative Family History: FH: COPD (chronic obstructive pulmonary disease) G8 FATHER FH: coronary artery bypass surgery GRAND FATHER - MOTHER SIDE Allergies: Coded Allergies: NO KNOWN ALLERGIES (Unverified , 09/26/22) Home Meds Active Scripts Cyclobenzaprine Hcl (Cyclobenzaprine Hcl) 5 Mg Tab, 1 TAB PO QHSP, #14 TAB 0 Refills Prov:HARRY QUIROZ 08/16/23 Reported Medications Divalproex Sodium (Divalproex Sodium Dr) 250 Mg Tab, 1 TAB PO BID 02/26/23 Current Medications Current Medications Medications (Trade) Dose Ordered Sig/Sherron Route PRN Reason Start Time Stop Time Status Last Admin Hydromorphone HCl (Dilaudid Injection) 0.5 mg Q4HPRN PRN IV SEVERE PAIN (7-10 PAIN SCALE) 12/17/24 15:30 Metronidazole 100 ml @ 100 mls/hr Q8HR IV 12/17/24 22:00 Pantoprazole Sodium (Protonix) 40 mg DAILY IV 12/18/24 10:00 Ceftriaxone Sodium 50 ml @ 100 mls/hr DAILY@09 IV 12/18/24 09:00 Sodium Chloride (Saline Lock Ns) 10 ml Q8HR IV 12/17/24 22:00 Acetaminophen/ Hydrocodone Bitart ([place] 5/325MG Tab) 1 tab Q4HP PRN PO MODERATE PAIN (4-6 PAIN SCALE) 12/17/24 15:30 Ondansetron HCl (Zofran) 4 mg Q4HP PRN IV NAUSEA / VOMITING 12/17/24 15:30 Docusate Sodium (Colace Capsule) 100 mg BIDPRN PRN PO FOR CONSTIPATION 12/17/24 15:30 Acetaminophen (Tylenol Tablet) 650 mg Q6HP PRN PO PAIN SCALE 1-3 OR TEMP>100.4 12/17/24 15:30 Midazolam HCl 50 ml @ 1 mls/hr Q24H IV 12/17/24 17:00 Vital Signs Vital Signs Date Time Temp Pulse Resp B/P (MAP) Pulse Ox O2 Delivery O2 Flow Rate FiO2 12/17/24 15:06 100 22 133/101 12/17/24 14:00 97 12/17/24 12:10 98.2 98.2 12/17/24 12:00 Nasal Cannula* 2 28 Physical Exam General Appearance: Moderate Distress; pain HEENT: Colon reactive to light Neck: Full Range of Motion, Non-Tender, Normal, Normal Inspection Respiratory: Chest Non-Tender, Lungs Clear, No Accessory Muscle Use, No Respiratory Distress, Normal Breath Sounds Cardiovascular: No Edema, No JVD, No Murmur, No Gallop, Normal Peripheral Pulses, Regular Rate/Rhythm Gastrointestinal: Mild diffuse tenderness mild GERD No Organomegaly, No Pulsatile Mass, Normal Bowel Sounds, Soft Extremities: No calf tenderness, Normal capillary refill, Normal inspection, N ormal range of motion, Non-tender, No pedal edema Labs/Diagnostic Data Labs Test 12/17/24 15:25 12/17/24 13:20 12/17/24 13:09 12/17/24 11:58 Range/Units Troponin I High Sensitivity < 3 L </=54 ng/L Urine Color Yellow Yellow Urine Clarity Clear Clear Urine pH 6.0 5.0-9.0 Urine Specific [place] < 1.050 H 1.001-1.035 Urine Protein Negative Negative Urine Ketones Trace Negative Urine Blood Negative Negative /uL Urine Nitrite Negative Negative Urine Bilirubin Negative Negative Urine Urobilinogen Normal Negative mg/dL Urine Leukocyte Esterase Negative Negative /uL Urine RBC 1 0 - 3 /hpf Urine Microscopic WBC 1 0-3 /HPF Urine Squamous Epithelial Cells None seen <5 /hpf Urine Bacteria None seen None Seen /hpf Urine Mucus Few None Seen Urine Glucose Normal Normal mg/dL Blood Gas Specimen Type Arterial Blood Gas Sample Site Left radial Blood Gas Patient Temperature 37.0 Arterial Blood Date Drawn [id number] Arterial Blood pH 7.403 7.350-7.450 Arterial Blood Partial Pressure CO2 33.4 L 35.0-48.0 mmHg Arterial Blood Partial Pressure O2 106.2 83.0-108.0 mmHg Arterial Blood HCO3 20.4 L 21.0-28.0 mmol/L Arterial Blood Oxygen Saturation 97.3 94.0-98.0 % Arterial Blood Base Excess -3.2 L -2.0-3.0 mmol/L Arterial Blood Oxyhemoglobin 96.4 94.0-98.0 % Arterial Blood Carboxyhemoglobin 0.3 L 0.5-1.5 % Arterial Blood Methemoglobin 0.6 0.0-1.5 % Manan Test Yes Blood Gas Total Hemoglobin 18.10 *H 13.5-17.5 g/dL Blood Gas Liter Flow 3.00 Blood Gas Modality Nasal cannula FiO2 % 32.0 Blood Gas Critical Value Read Back Yes Blood Gas Notified Whom Cedric moreira Blood Gas Notified Time [id number] Blood Gas Notified By Fransisco solis White Blood Count 11.5 H 4.4-10.8 10^3/uL Red Blood Count 5.62 4.5-5.90 10^6/uL Hemoglobin 17.8 H 13.5-17.5 g/dL Hematocrit 51.4 41.0-53.0 % Mean Corpuscular Volume 91.5 80.0-100.0 fL Mean Corpuscular Hemoglobin 31.6 28.0-32.0 pg Mean Corpuscular Hemoglobin Concent 34.6 32.0-36.0 g/dL Red Cell Distribution Width 14.4 H 11.8-14.3 % Platelet Count 373 140-450 10^3/uL Mean Platelet Volume 6.3 L 6.9-10.8 fL Neutrophils (%) (Auto) 86.7 H 37.0-80.0 % Lymphocytes (%) (Auto) 10.0 10.0-50.0 % Monocytes (%) (Auto) 2.3 0.0-12.0 % Eosinophils (%) (Auto) 0.7 0.0-7.0 % Basophils (%) (Auto) 0.3 0.0-2.0 % Neutrophils # (Auto) 9.9 H 1.6-8.6 10 ^3/uL Lymphocytes # (Auto) 1.1 0.4-5.4 10 ^3/uL Monocytes # (Auto) 0.3 0-1.3 10 ^3/uL Eosinophils # (Auto) 0.1 0-0.8 10 ^3/uL Basophils # (Auto) 0 0-0.2 10 ^3/uL Nucleated Red Blood Cells 0.1 % Sodium Level 141 136-145 mmol/L Potassium Level 3.7 3.5-5.1 mmol/L Chloride Level 108 H 98-107 mmol/L Carbon Dioxide Level 21 20-31 mmol/L Anion Gap 12 5-15 Blood Urea Nitrogen 10 9-23 mg/dL Creatinine 0.80 0.700-1.30 mg/dL Glomerular Filtration Rate Calc 113 >90 mL/min BUN/Creatinine Ratio 12.5 10.0-20.0 Serum Glucose 149 H 74-106 mg/dL Hemoglobin A1c 5.3 <5.7 % A1C Calcium Level 9.4 8.7-10.4 mg/dL Total Bilirubin 0.3 0.2-1.0 mg/dL Aspartate Amino Transferase (AST) 19 13-40 U/L Alanine Aminotransferase (ALT) 13 7-40 U/L Alkaline Phosphatase 54 46-116 U/L Total Protein 7.1 5.7-8.2 g/dL Albumin 4.7 3.2-4.8 g/dL Lipase 38 12-53 U/L CT SCAN ABD PELVIS IMPRESSION: Diffuse colitis with small perihepatic ascites and small amount of ascites present. Colonoscopy recommended after patient's acute symptoms resolve. Problems(with codes): (1) Colitis (2) Abnormal finding on GI tract imaging (3) Abdominal pain (4) Leukocytosis, unspecified (5) Leukocytosis Plan/Recommendation Plan Patient was seen in the ER currently very agitated Patient is going to be intubated by the ER physician and sedated I would recommend getting a drug or toxicology screen NPO, IV fluid hydration IV PPI Broad-spectrum antibiotics Stool for WBC and occult blood; T0 culture and C diff Monitor labs Consider repeat CT in 24-48 hours to re-evaluate abdomen Elective colonoscopy once medically stabilized possibly as an outpatient and once the colitis has improved Plan discussed with: Patient, Other (ER Physician) MAO COLEMAN MD Dec 17, 2024 17:10
--- NOTE | 2024-12-17 17:28 | ECG ---
[facility] Test Date: 2024-12-17 Test Time: 17:26:40 Pat Name: BARBRA TRUJILLO Department: ED Room: [address] [place] [address] Gender: M [employer]ist: ALINE : 1980 Requested By: ISABEL EASLEY Order Number: [id number] Reading MD: Adonis Sanchez Measurements Intervals [place] Rate: 174 P: 0 [place]: 0 QRS: 96 QRSD: 78 T: 16 QT: 330 QTc: 562 Interpretive Statements Sinus tachycardia Borderline right axis deviation Prolonged QT interval Electronically Signed On 12-21-2024 9:46:01 PDT by Adonis Sanchez Please click the below link to view image of tracing.
[2024-12-17] MEDS: ACETAMINOPHEN IV 100 ML IV ONE (17:38)
--- NOTE | 2024-12-17 17:39 | DVH ---
EXAM: XR Chest, 1 View CLINICAL INDICATION: ETT/NGT TECHNIQUE: Frontal view of the chest. COMPARISON: No relevant prior studies available. FINDINGS: LUNGS AND PLEURAL SPACES: Bibasilar atelectasis or pneumonia. No pneumothorax. HEART: Unremarkable. No cardiomegaly. MEDIASTINUM: Unremarkable. Normal mediastinal contour. BONES/JOINTS: Unremarkable. No acute fracture. TUBES, LINES AND DEVICES: The endotracheal tube (ETT) is in satisfactory position. Enteric tube is not clearly visualized. Clinical correlation is recommended. OTHER FINDINGS: Comparison XY CHEST PORTABLE on DOS: 12/17/24, XY CHEST PORTABLE on DOS: 02/25/23. IMPRESSION: 1. Bibasilar atelectasis or pneumonia. 2. Enteric tube is not clearly visualized. Clinical correlation is recommended. HS:Y
[2024-12-17] MEDS: PANTOPRAZOLE 40 MG/10 ML VIAL INJ IV ONE (17:41)
[2024-12-17] MEDS ORDERED: MORPHINE SULFATE INJ 2 MG/ml SYRG IV PRN (17:45)
[2024-12-17] MEDS ORDERED: NITROGLYCERIN 0.4 MG SL TAB SL PRN (17:45)
[2024-12-17] MEDS: ACETAMINOPHEN IV 1000 MG/100ML (10MG/ML) IV ONE (17:57)
--- NOTE | 2024-12-17 18:22 | DVHHP2 ---
History of Present Illness Reason for Visit: Acute respiratory failure History of Present Illness The patient is a 44-year-old male with past medical history of count and seizures who presented to [facility] ED with complaint of right lower quadrant abdominal pain. Patient reports he has been experiencing abdominal pain for the past 1 day, radiating to his back, sharp in nature, constant, rating 10/10 numeric scale, getting worse today that prompted this visit. Patient was seen and evaluated in the ED, laboratory data shows WBC 11.5, platelets 373, sodium 141, potassium 3.7, BUN 10, creatinine 0.80, glucose 149, calcium 9.4, lipase 38, troponin three, blood pressure 133/101, heart rate 152 trending down to 120, rectal temperature 100.3 trending down to 99.2 F, O2 saturation 97% on oxygen. Patient's condition progressively get worse with restlessness, pulling off IV lines, hypoxic, and subsequently intubated. Abdomen/pelvis CT revealing diffuse colitis with small perihepatic ascites and small amount of ascites present, colonoscopy recommended. Chest x-ray revealing multifocal airspace disease. Patient was started on IV antibiotic regimen Zosyn, please see medication orders section in the computer. On my assessment, patient is fully intubated, no diaphoresis, no diarrhea, no vomiting, no chills. Patient was admitted for further evaluation and medical management. Past Medical History Gout, Seizures Past Surgical History Denies all surgeries Family History Reviewed, noncontributory to the management of this case. Past Social History The patient lives at home, denies smoking, drinks alcohol occasionally, uses marijuana. Review of Systems Constitutional: Yes: Weakness, Other (Diaphoresis); No: Fever, Chills, Sweats, Malaise Eyes: No: Pain, Vision change, Conjunctivae inflammation, Eyelid inflammation, Other, Redness ENT: No: Ear pain, Ear discharge, Nose pain, Nose discharge, Nose congestion, Mouth pain, Mouth swelling, Throat pain, Throat swelling, Other Respiratory: No: Cough, Dry, Shortness of breath, SOB with excertion, Wheezing, Hemoptysis, Pleuritic Pain, Sputum, Wheezing, Other Cardiovascular: No: Chest Pain, Palpitations, Orthopnea, Paroxysmal Noc. Dyspnea, Edema, Lt Headedness, Other Gastrointestinal: Abdominal Pain; No: Nausea, Vomiting, Diarrhea, Constipation, Melena, Hematochezia, Other Genitourinary: No Dysuria, No Frequency, No Incontinence, No Hematuria, No Retention, No Other Musculoskeletal: No: other, neck pain, shoulder pain, arm pain, back pain, hand pain, leg pain, foot pain Skin: No: Rash, Lesions, Jaundice, Bruising, Other Neurological: Other (Altered mental status); No: Weakness, Numbness, Incoordination, Change in speech, Confusion, Seizures Allergies: Coded Allergies: NO KNOWN ALLERGIES (Unverified , 09/26/22) Medications Current Medications Medications Dose Ordered Sig/Sherron Route Start Time Stop Time Status Last Admin Dose Admin Hydromorphone HCl 0.5 mg Q4HPRN PRN IV 12/17/24 15:30 Metronidazole 100 ml @ 100 mls/hr Q8HR IV 12/17/24 22:00 Pantoprazole Sodium 40 mg DAILY IV 12/18/24 10:00 Ceftriaxone Sodium 50 ml @ 100 mls/hr DAILY@09 IV 12/18/24 09:00 Sodium Chloride 10 ml Q8HR IV 12/17/24 22:00 Acetaminophen/ Hydrocodone Bitart 1 tab Q4HP PRN PO 12/17/24 15:30 Ondansetron HCl 4 mg Q4HP PRN IV 12/17/24 15:30 Docusate Sodium 100 mg BIDPRN PRN PO 12/17/24 15:30 Acetaminophen 650 mg Q6HP PRN PO 12/17/24 15:30 Midazolam HCl 50 ml @ 1 mls/hr Q24H IV 12/17/24 17:00 12/17/24 17:05 10 MLS/HR Exam Vital Signs Vital Signs Date Time Temp Pulse Resp B/P (MAP) Pulse Ox O2 Delivery O2 Flow Rate FiO2 12/17/24 17:33 157 12/17/24 17:06 160/117 12/17/24 15:06 22 12/17/24 14:00 97 12/17/24 12:10 98.2 98.2 12/17/24 12:00 Nasal Cannula* 2 28 General Appearance: Other (Fully intubated) HEENT: Atraumatic, PERRLA, EOMI, Mucous membr. moist/pink Respiratory: Normal air movement, Other (On ventilator) Cardiovascular: Regular rate, Normal S1, Normal S2, No murmurs Abdominal: Normal bowel sounds, Soft, No tenderness, No hepatospenomegaly, No masses Extremities: No clubbing, No cyanosis, No edema, Normal pulses, No tenderness/swelling Skin: No rashes, No breakdown, No significant lesion Neuro: Normal speech, Normal tone, Sensation intact, Cranial nerves 3-12 NL, Reflexes 2+, Other (Generalized weakness) Psych/Mental Status: Mood NL, Other (Altered mental status) Labs/Xrays Labs Test 12/17/24 15:25 12/17/24 13:20 12/17/24 13:09 12/17/24 11:58 Range/Units Troponin I High Sensitivity < 3 L </=54 ng/L Urine Color Yellow Yellow Urine Clarity Clear Clear Urine pH 6.0 5.0-9.0 Urine Specific [place] < 1.050 H 1.001-1.035 Urine Protein Negative Negative Urine Ketones Trace Negative Urine Blood Negative Negative /uL Urine Nitrite Negative Negative Urine Bilirubin Negative Negative Urine Urobilinogen Normal Negative mg/dL Urine Leukocyte Esterase Negative Negative /uL Urine RBC 1 0 - 3 /hpf Urine Microscopic WBC 1 0-3 /HPF Urine Squamous Epithelial Cells None seen <5 /hpf Urine Bacteria None seen None Seen /hpf Urine Mucus Few None Seen Urine Glucose Normal Normal mg/dL Blood Gas Specimen Type Arterial Blood Gas Sample Site Left radial Blood Gas Patient Temperature 37.0 Arterial Blood Date Drawn [id number] Arterial Blood pH 7.403 7.350-7.450 Arterial Blood Partial Pressure CO2 33.4 L 35.0-48.0 mmHg Arterial Blood Partial Pressure O2 106.2 83.0-108.0 mmHg Arterial Blood HCO3 20.4 L 21.0-28.0 mmol/L Arterial Blood Oxygen Saturation 97.3 94.0-98.0 % Arterial Blood Base Excess -3.2 L -2.0-3.0 mmol/L Arterial Blood Oxyhemoglobin 96.4 94.0-98.0 % Arterial Blood Carboxyhemoglobin 0.3 L 0.5-1.5 % Arterial Blood Methemoglobin 0.6 0.0-1.5 % Manan Test Yes Blood Gas Total Hemoglobin 18.10 *H 13.5-17.5 g/dL Blood Gas Liter Flow 3.00 Blood Gas Modality Nasal cannula FiO2 % 32.0 Blood Gas Critical Value Read Back Yes Blood Gas Notified Whom Cedric moreira Blood Gas Notified Time [id number] Blood Gas Notified By Fransisco solis White Blood Count 11.5 H 4.4-10.8 10^3/uL Red Blood Count 5.62 4.5-5.90 10^6/uL Hemoglobin 17.8 H 13.5-17.5 g/dL Hematocrit 51.4 41.0-53.0 % Mean Corpuscular Volume 91.5 80.0-100.0 fL Mean Corpuscular Hemoglobin 31.6 28.0-32.0 pg Mean Corpuscular Hemoglobin Concent 34.6 32.0-36.0 g/dL Red Cell Distribution Width 14.4 H 11.8-14.3 % Platelet Count 373 140-450 10^3/uL Mean Platelet Volume 6.3 L 6.9-10.8 fL Neutrophils (%) (Auto) 86.7 H 37.0-80.0 % Lymphocytes (%) (Auto) 10.0 10.0-50.0 % Monocytes (%) (Auto) 2.3 0.0-12.0 % Eosinophils (%) (Auto) 0.7 0.0-7.0 % Basophils (%) (Auto) 0.3 0.0-2.0 % Neutrophils # (Auto) 9.9 H 1.6-8.6 10 ^3/uL Lymphocytes # (Auto) 1.1 0.4-5.4 10 ^3/uL Monocytes # (Auto) 0.3 0-1.3 10 ^3/uL Eosinophils # (Auto) 0.1 0-0.8 10 ^3/uL Basophils # (Auto) 0 0-0.2 10 ^3/uL Nucleated Red Blood Cells 0.1 % Sodium Level 141 136-145 mmol/L Potassium Level 3.7 3.5-5.1 mmol/L Chloride Level 108 H 98-107 mmol/L Carbon Dioxide Level 21 20-31 mmol/L Anion Gap 12 5-15 Blood Urea Nitrogen 10 9-23 mg/dL Creatinine 0.80 0.700-1.30 mg/dL Glomerular Filtration Rate Calc 113 >90 mL/min BUN/Creatinine Ratio 12.5 10.0-20.0 Serum Glucose 149 H 74-106 mg/dL Hemoglobin A1c 5.3 <5.7 % A1C Calcium Level 9.4 8.7-10.4 mg/dL Total Bilirubin 0.3 0.2-1.0 mg/dL Aspartate Amino Transferase (AST) 19 13-40 U/L Alanine Aminotransferase (ALT) 13 7-40 U/L Alkaline Phosphatase 54 46-116 U/L Total Protein 7.1 5.7-8.2 g/dL Albumin 4.7 3.2-4.8 g/dL Lipase 38 12-53 U/L PATIENT: BARBRA TRUJILLO ACCT: [id number] UNIT: [id number] : 1980 LOC: ER ROOM / BED: / AGE / SEX: 44 / M ADM STATUS: REG ER SERVICE 1231 ORDERING PHYSICIAN: ISABEL EASLEY MD PROCEDURE(s): CAPIV - CT CHEST/AB/PL W CON- IV ONLY REASON: pain ORDER NUMBER(s): [id number], ACCESSION NUMBER(s): [id number] Exam: CT CT CHEST/AB/PL W CON- IV ONLY History: pain Comparison Study: None Technique: Multidetector CT of the chest, abdomen and pelvis was performed from lower neck to pubic symphysis. Intravenous contrast was administered during this examination. Axial, coronal and sagittal multiplanar reformats were performed by the technologist on a separate workstation. Radiation Dose Information: CT Dose: CTDI volume is 25 mGy. Dose-length product is 250 mGy*cm Findings: Lower neck: normal Lungs: normal Heart/Vascular Structures: normal Lymph Nodes: normal Pleura: normal Lung Bases: No acute or significant lung base finding. Normal heart size. No pleural or pericardial effusion. Liver: The liver is normal in size. No focal lesions. Gallbladder and Biliary Tree: Unremarkable Spleen: Unremarkable Pancreas: The pancreas is grossly normal in appearance. Adrenal Glands: Unremarkable Kidneys: Kidneys are grossly normal without calculi or hydronephrosis. Bladder: Grossly unremarkable for degree of distention. Bowel: The stomach is grossly normal in appearance. Diffuse colitis with small perihepatic ascites and small amount of ascites present. The appendix is not visualized; however, no secondary findings of acute appendicitis identified. Ascites: Small volume ascites. Lymphadenopathy: No mesenteric, retroperitoneal or periportal lymphadenopathy. Abdominal Wall and Mesentery: Unremarkable. Vasculature: The visualized abdominal aorta is normal in size and caliber. Evaluation of abdominal and pelvic vessels is limited due to lack of intravenous contrast. Pelvic Organs: Unremarkable Musculoskeletal: No aggressive focal bony lesions, acute fractures or dislocation. Soft tissues: Unremarkable IMPRESSION: Diffuse colitis with small perihepatic ascites and small amount of ascites present. Colonoscopy recommended after patient's acute symptoms resolve. [No acute finding involving chest, abdomen or pelvis.] ORDERING PHYSICIAN: ISABEL EASLEY MD PROCEDURE(s): CXRP - CHEST PORTABLE REASON: sob ORDER NUMBER(s): [id number], ACCESSION NUMBER(s): [id number] CHEST RADIOGRAPH Indication: sob Technique: Single frontal view of the chest was obtained COMPARISON: XY CHEST PORTABLE on DOS: 02/25/23 FINDINGS: Lines and Tubes: None Lungs: Multifocal airspace disease Pleura: No effusion. No pneumothorax. Cardiomediastinal contours: Unremarkable Bones: Unremarkable IMPRESSION: Multifocal airspace disease Assessment/Plan Assessment/Plan Acute respiratory failure Acute abdominal pain Colitis Sepsis, unspecified organism Generalized weakness Plan 1. Admit to intensive care unit 2. Breathing treatment 3. Pain control management 4. IV antibiotic management 5. Management of fluids and electrolytes 6. Consultation for pulmonology/hospitalist 7. Diagnostic test abdomen/pelvis CT 8. DVT prophylaxis on SCDs 9. Repeat labs CBC, CMP in a.m. 10. Home medication reviewed and reconciled 11. Continue with current medical management 12. Treatment plan discussed with patient and RN. Patient is fully intubated. Plan discussed with: Patient, Other (RN) My Orders Orders - BLAKE PRAKASH DNP Procedure Category Date Status Time Hydromorphone PHA 12/17/24 In Process Injection (Dilaudid 15:30 Metronidazole PHA 12/17/24 In Process 500mg/100ml (Flagyl 22:00 Pantoprazole PHA 12/18/24 In Process (Protonix) 10:00 Ceftriaxone 1gm/50ml PHA 12/18/24 In Process D5w (Rocephin) 09:00 Allergies SHORTY 12/17/24 In Process 15:20 Code Status CODE 12/17/24 Transmitted 15:20 Sodium Chloride Lock PHA 12/17/24 In Process (Saline Lock Ns) 22:00 Oxygen Per Hour RT 12/17/24 Transmitted 15:20 Hydrocodone-Acet PHA 12/17/24 In Process 5/325mg Tab ([place] 15:30 Ondansetron Hcl PHA 12/17/24 In Process (Zofran) 15:30 Docusate Sodium PHA 12/17/24 In Process Capsule (Colace 15:30 Complete Blood Count LAB 12/18/24 Verified 04:00 Comprehensive LAB 12/18/24 Verified Metabolic Panel 04:00 Condition: Serious SHORTY 12/17/24 In Process 15:20 Acetaminophen Tablet PHA 12/17/24 In Process (Tylenol Tablet) 15:30 Clear Liq Diet DIET 12/17/24 Transmitted Dinner Bedrest With Bathroom SHORTY 12/17/24 In Process Privileg 15:20 Sequential SHORTY 12/17/24 In Process Compression Device * Gi Dvh Photographer Model CONS 12/17/24 Transmitted 15:28 Admit ADMIT 12/17/24 Transmitted 17:43 Nitroglycerin [facility] 12/17/24 Transmitted Sublingual (Ntrostat 17:45 Morphine Sulfate PHA 12/17/24 Transmitted Injection 17:45 Stat Ekg For Chest [facility] 12/17/24 Transmitted Pain 17:43 Notify Md Of Changes [facility] 12/17/24 Transmitted From Base 17:43 Meals On Wheels Driver For [facility] 12/17/24 Transmitted 24 Hours 17:43 Emergency [address]ia [facility] 12/17/24 Transmitted Protocol 17:43 Rhythm Strips Once [facility] 12/17/24 Transmitted Every Shift 17:43 Oxygen By Nasal RT 12/17/24 Transmitted Cannula 17:43 Problem List: (1) Acute respiratory failure (2) Acute abdominal pain (3) Colitis (4) Sepsis, unspecified organism (5) Generalized weakness Date of Service: Dec 17, 2024 Billing Provider: BLAKE PRAKASH DNP Common Visit Codes: [id number] INP/OBS CARE (HIGH) BLAKE PRAKASH DNP Dec 17, 2024 18:22
[2024-12-17] MEDS: PROPOFOL 100 ML IV SCH (18:30)
[2024-12-17] MEDS: PROPOFOL 100 ML IV ONE (18:35)
[2024-12-17 19:35] VITALS: O2SAT 97
[2024-12-17] MEDS: PIPERACILLIN-TAZOB 3.375GM 100 ML IV ONE (19:35)
[2024-12-17 20:04] VITALS: BP 99/70; PULSE 134; RESP 22; O2SAT 97
[2024-12-17 20:13] LABS: Base Excess -4.8 mmol/L (-2.0-3.0)
--- NOTE | 2024-12-17 20:27 | DVH ---
EXAM: XR Chest, 1 View CLINICAL INDICATION: POST CENTRAL LINE PLACEMENT/ OGT PLACEMENT TECHNIQUE: Frontal view of the chest. COMPARISON: No relevant prior studies available. FINDINGS: LUNGS AND PLEURAL SPACES: See below. HEART: Cardiomegaly with mild congestion. MEDIASTINUM: Unremarkable. Normal mediastinal contour. BONES/JOINTS: Unremarkable. No acute fracture. TUBES, LINES AND DEVICES: Right internal jugular central venous catheter tip in the superior vena c abiodun. The endotracheal tube (ETT) is in satisfactory position. Enteric tube tip in the stomach. OTHER FINDINGS: Comparison XY CHEST XRAY 1 VIEW on DOS: 12/17/24, XY CHEST PORTABLE on DOS: 12/17/24, XY CHEST PORTABLE on DOS: 02/25/23. . IMPRESSION: Cardiomegaly with mild congestion. HS:Y
[2024-12-17 21:02] VITALS: BP 99/70; PULSE 134; RESP 22; TEMP 100.3; O2SAT 97
[2024-12-17 21:18] VITALS: BP 110/71; PULSE 138; RESP 26; O2SAT 99
[2024-12-17] MEDS: fentaNYL Drip 2500mCg/250mlNS 250 ML IV SCH (21:40)
[2024-12-17] MEDS: fentaNYL Drip 2500mCg/250mlNS 250 ML IV ONE (21:42)
[2024-12-17] MEDS: VALPROATE INJ 250 MG in SODIUM CHL 0.9% 50 ML IV SCH (22:00)
[2024-12-17] MEDS: SODIUM CHLOR 0.9% PF (SALINE LOCK) 10ML VIAL/SYR IV SCH (22:24)
[2024-12-18] VITALS (110 sets, daily range): BP systolic 78–132; BP diastolic 50–96; PULSE 92–156; RESP 19–43; TEMP 89.4–102.9; O2SAT 92–100
[2024-12-18] MEDS: ACETAMINOPHEN 650 MG RECT SUPP PR PRN (01:19)
[2024-12-18] MEDS: SODIUM CHLORIDE 0.9% 1,000 ML IV ONE ×2 (01:45→09:52)
[2024-12-18] MEDS: NOREPINEPHRINE 8 MG/250ML KIT 250 ML IV SCH (01:45)
[2024-12-18] MEDS: NOREPINEPHRINE 8 MG/250ML KIT 250 ML IV ONE (01:47)
[2024-12-18 02:04] LABS: Base Excess -6.5 mmol/L (-2.0-3.0)
[2024-12-18] MEDS: PIPERACILLIN-TAZOB 3.375GM 100 ML IV SCH ×2 (02:11→12:19)
[2024-12-18 02:13] LABS: Hematocrit 52.2 % (41.0-53.0); Hemoglobin 17.5 g/dL (13.5-17.5); Mean Corpuscular Hemoglobin 30.9 pg (28.0-32.0); Mean Corpuscular Volume 92.3 fL (80.0-100.0); Nucleated Red Blood Cells % 0.0 %
[2024-12-18] MEDS: SODIUM CHLORIDE 0.9% 1,000 ML IV SCH (02:34)
[2024-12-18 02:36] LABS: Alanine Aminotransferase 12 U/L (7-40); Albumin 3.7 g/dL (3.2-4.8); Anion Gap 13 (5-15); BUN/Creatinine Ratio 13.2 (10.0-20.0); Bilirubin, Total 0.4 mg/dL (0.2-1.0); Blood Urea Nitrogen 15 mg/dL (9-23); Potassium 4.3 mmol/L (3.5-5.1); Sodium 143 mmol/L (136-145)
[2024-12-18 02:38] LABS: Alkaline Phosphatase 34 U/L (46-116); Calcium 8.4 mg/dL (8.7-10.4); Carbon Dioxide 18 mmol/L (20-31); Chloride 112 mmol/L (98-107); Glucose 128 mg/dL (74-106); Lactic Acid w/Reflex 3.2 mmol/L (0.4-2.0); Total Protein 5.5 g/dL (5.7-8.2)
[2024-12-18] MEDS: ACETAMINOPHEN 650 MG RECT SUPP PR ONE (03:52)
--- NOTE | 2024-12-18 04:37 | DVH ---
CHEST RADIOGRAPH Indication: INTUBATED Technique: Single frontal view of the chest was obtained COMPARISON: XY CHEST XRAY 1 VIEW on DOS: 12/17/24, XY CHEST XRAY 1 VIEW on DOS: 12/17/24, XY CHEST PORT ABLE on DOS: 12/17/24, XY CHEST PORTABLE on DOS: 02/25/23 FINDINGS: Lines and Tubes: Endotracheal tube tip projects approximately 2.9 cm above the level of the natalie. E nteric catheter terminates within the left upper quadrant, presumably within the gastric lumen. Right internal jugular central venous catheter tip projects over the superior vena cava. Lungs: Moderate bibasilar atelectasis. No evidence of focal consolidation. Pleura: No effusion. No pneumothorax. Cardiomediastinal contours: Unremarkable Bones: Unremarkable IMPRESSION: 1. No acute disease. 2. Lines and tubes as above.
[2024-12-18] MEDS: SODIUM CHLORIDE 0.9% 1,500 ML IV ONE (05:20)
[2024-12-18 07:59] LABS: Amphetamine Screen, Urine Neg (NEGATIVE); Barbiturate Scree,Urine Neg (NEGATIVE); Benzodiazephine Screen, Urine Pos (NEGATIVE); Cannabinoid Screen, Urine Pos (NEGATIVE); Cocaine Screen, Urine Neg (NEGATIVE); Opiate Scree,Urine Neg (NEGATIVE); Phencyclidine Screen, Urine Neg (NEGATIVE)
[2024-12-18] MEDS: VASOPRESSIN 20 UNITS in SODIUM CHL 0.9% 99 ML IV SCH (08:00)
[2024-12-18] MEDS: PHENYLEPHRINE IV 250 ML IV ONE (08:04)
[2024-12-18 08:14] LABS: Hematocrit 46.3 % (41.0-53.0); Hemoglobin 15.4 g/dL (13.5-17.5); Mean Corpuscular Hemoglobin 31.1 pg (28.0-32.0); Mean Corpuscular Volume 93.5 fL (80.0-100.0)
[2024-12-18 08:23] LABS: Potassium 5.0 mmol/L (3.5-5.1); Sodium 145 mmol/L (136-145)
[2024-12-18 08:24] LABS: Anion Gap 9 (5-15); BUN/Creatinine Ratio 18.5 (10.0-20.0); Blood Urea Nitrogen 17 mg/dL (9-23)
[2024-12-18] MEDS: PHENYLEPHRINE IV 250 ML IV SCH (08:25)
[2024-12-18 08:26] LABS: Alanine Aminotransferase 9 U/L (7-40); Albumin 2.8 g/dL (3.2-4.8); Alkaline Phosphatase 25 U/L (46-116); Bilirubin, Total 0.2 mg/dL (0.2-1.0); Calcium 7.3 mg/dL (8.7-10.4); Carbon Dioxide 18 mmol/L (20-31); Chloride 118 mmol/L (98-107); Glucose 125 mg/dL (74-106); Total Protein 4.3 g/dL (5.7-8.2)
[2024-12-18 08:32] LABS: Urine Protein, UAD 1+ (Negative); Urine WBC Clumps PRESENT /hpf (None Seen)
[2024-12-18] MEDS: PANTOPRAZOLE 40 MG/10 ML VIAL INJ IV SCH (09:51)
[2024-12-18 10:00] LABS: INR 1.43 (0.9-1.15); Partial Thromboplastin Time 35.9 SEC (24.5-34.5); Prothrombin Time 14.6 sec (9.3-11.8)
[2024-12-18] MEDS: EPINEPHrine HCL 250 ML IV SCH (10:15)
[2024-12-18 10:55] LABS: Total Cells Counted 100.0 (100)
[2024-12-18] MEDS ORDERED: OXYC325T14 PO (11:30)
[2024-12-18] MEDS ORDERED: DOCU-94 PO (11:33)
[2024-12-18] MEDS ORDERED: TRAZ-227 PO (11:37)
[2024-12-18] MEDS ORDERED: ZOFR4T PO (13:10)
--- NOTE | 2024-12-18 14:04 | DVHPN2 ---
Progress Note - Dictate Date Seen: Dec 18, 2024 Medical Necessity Reason Pt with a Central, PICC or Fol: Yes Subjective Patient is intubated and sedated on multiple pressors Preet-Synephrine has been taper down There was no bowel movement and no GI bleeding reported White count is coming down, liver enzymes are stable, H&H is stable Lactic acid is come down vital signs Vital Sign Date Time Temp Pulse Resp B/P (MAP) Pulse Ox O2 Delivery O2 Flow Rate FiO2 12/18/24 13:27 110/77 12/18/24 12:07 93 20 98 45 12/18/24 07:00 100.2 212.4 12/18/24 06:00 Mechanical Ventilator+ 12/17/24 12:00 2 Total Intake and Output 12/17/24 12/17/24 12/18/24 15:00 23:00 07:00 Intake Total 500 ml 415.16 ml 3664.01 ml Output Total 1000 ml Balance 500 ml 415.16 ml 2664.01 ml medications Current Medications Medications Dose Ordered Sig/Sherron Route Start Time Stop Time Status Last Admin Dose Admin Metronidazole 100 ml @ 100 mls/hr Q8HR IV 12/17/24 22:00 12/18/24 05:51 100 MLS/HR Pantoprazole Sodium 40 mg DAILY IV 12/18/24 10:00 12/18/24 09:51 40 MG Sodium Chloride 10 ml Q8HR IV 12/17/24 22:00 12/18/24 05:48 10 ML Midazolam HCl 50 ml @ 1 mls/hr Q24H IV 12/17/24 17:00 12/18/24 13:04 10 MLS/HR Valproate Sodium 250 mg/Sodium Chloride 52.5 ml @ 52.5 mls/hr BID IV 12/17/24 22:00 12/18/24 10:43 52.5 MLS/HR Propofol 100 ml @ 2.37 mls/hr Q24H IV 12/17/24 18:15 12/18/24 11:54 11.85 MLS/HR Acetaminophen 650 mg Q6HP PRN MA 12/17/24 18:00 12/18/24 01:19 650 MG Fentanyl Citrate 250 ml @ 2.5 mls/hr Q24H IV 12/17/24 21:15 12/17/24 21:40 10 MLS/HR Sodium Chloride 1,000 ml @ 120 mls/hr Q8H20M IV 12/18/24 01:45 12/18/24 08:24 120 MLS/HR Norepinephrine Bitartrate 250 ml @ 3.75 mls/hr Q24H IV 12/18/24 01:45 12/18/24 13:02 56.25 MLS/HR Piperacillin Sod/ Tazobactam Sod 100 ml @ 25 mls/hr Q6HR IV 12/18/24 12:00 12/18/24 12:19 25 MLS/HR Vasopressin 20 units/Sodium Chloride 100 ml @ 9 mls/hr Q11H7M IV 12/18/24 07:30 12/18/24 08:00 9 MLS/HR Phenylephrine HCl 250 ml @ 30 mls/hr Q8H20M IV 12/18/24 08:15 12/18/24 13:27 30 MLS/HR Epinephrine HCl 250 ml @ 7.5 mls/hr Q24H IV 12/18/24 10:15 objective General Appearance: Other (Fully intubated) HEENT: Atraumatic, PERRLA, EOMI, Mucous membr. moist/pink Respiratory: Normal air movement, Other (On ventilator) Cardiovascular: Regular rate, Normal S1, Normal S2, No murmurs Abdominal: Normal bowel sounds, Soft, No tenderness, No hepatospenomegaly, No masses Extremities: No clubbing, No cyanosis, No edema, Normal pulses, No tenderness/swelling Skin: No rashes, No breakdown, No significant lesion Neuro: Normal speech, Normal tone, Sensation intact, Cranial nerves 3-12 NL, Reflexes 2+, Other (Generalized weakness) Psych/Mental Status: Mood NL, Other (Altered mental status) laboratory and microbiology Laboratory Tests 12/18/24 07:51 Test 12/18/24 07:51 Range/Units Serum Glucose 125 H 74-106 mg/dL Problems(with codes): (1) Abnormal finding on GI tract imaging (2) Leukocytosis, unspecified (3) Abdominal pain (4) Colitis (5) Generalized weakness Prognosis Plan Patient is unable to go down to CT for repeat imaging due to multiple pressors We will get a bedside abdominal ultrasound and appendix ultrasound rule out appendicitis Get a bedside KUB rule out free air Continue IV antibiotics Continue pressor support as needed Supportive care for now Surgical consult rule out any intra-abdominal acute pathology Differential diagnosis could include ischemic colitis but at this time patient white count is down to was no GI bleeding hemoglobin is stable and patient is not having any diarrhea so that diagnosis is less likely I will be out of town for the rest of this week, please contact Dr. Forbes GI physician on-call if continued GI monitoring is required Plan discussed with: Other (ICU Nurse and Dr Jameson) MAO COLEMAN MD Dec 18, 2024 14:04
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
--- NOTE | 2024-12-18 14:33 | DVH ---
Date: 12/18/2024 01:30 PM Examination: XY KUB ABDOMEN SINGLE VIEW History: septic shock due to colitis Comparison: None TECHNIQUE: Frontal views of the abdomen was obtained. FINDINGS: Bowel gas pattern is unremarkable. The lung bases are unremarkable. No acute osseous abnormality identified. IMPRESSION: Nonobstructive bowel gas pattern. Large stool burden.
--- NOTE | 2024-12-18 14:34 | DVHINCON2 ---
Date of service: Dec 18, 2024 Family History: FH: COPD (chronic obstructive pulmonary disease) G8 FATHER FH: coronary artery bypass surgery GRAND FATHER - MOTHER SIDE Allergies: Coded Allergies: NO KNOWN ALLERGIES (Unverified , 09/26/22) Home Meds Active Scripts Cyclobenzaprine Hcl (Cyclobenzaprine Hcl) 5 Mg Tab, 1 TAB PO QHSP, #14 TAB 0 Refills Prov:HARRY QUIROZ 08/16/23 Reported Medications Ondansetron Odt 4MG Tab (ZOFRAN PO) 4 Mg Tb, 4 MG PO BID, TAB ODT TAB-DISSOLVE IN MOUTH, THEN SWALLOW 12/18/24 Trazodone Hcl (Trazodone Hcl) 50 Mg Tab, 50 MG PO HS, MG 12/18/24 Docusate Sodium (Colace) 100 Mg Cap, 1 CAP PO DAILY, #30 CAP 12/18/24 Oxycodone W/ Acetaminophen (Apap/Oxycodone) 1 Tab Tab, 1 TAB PO BID, #90 TAB 12/18/24 Divalproex Sodium (Divalproex Sodium Dr) 250 Mg Tab, 1 TAB PO BID 02/26/23 Current Medications Current Medications Medications (Trade) Dose Ordered Sig/Sherron Route PRN Reason Start Time Stop Time Status Last Admin Hydromorphone HCl (Dilaudid Injection) 0.5 mg Q4HPRN PRN IV SEVERE PAIN (7-10 PAIN SCALE) 12/17/24 15:30 12/18/24 09:57 DC Metronidazole 100 ml @ 100 mls/hr Q8HR IV 12/17/24 22:00 12/18/24 05:51 Pantoprazole Sodium (Protonix) 40 mg DAILY IV 12/18/24 10:00 12/18/24 09:51 Ceftriaxone Sodium 50 ml @ 100 mls/hr DAILY@09 IV 12/18/24 09:00 12/17/24 17:53 DC Sodium Chloride (Saline Lock Ns) 10 ml Q8HR IV 12/17/24 22:00 12/18/24 05:48 Acetaminophen/ Hydrocodone Bitart ([place] 5/325MG Tab) 1 tab Q4HP PRN PO MODERATE PAIN (4-6 PAIN SCALE) 12/17/24 15:30 12/18/24 09:57 DC Ondansetron HCl (Zofran) 4 mg Q4HP PRN IV NAUSEA / VOMITING 12/17/24 15:30 12/18/24 09:57 DC Docusate Sodium (Colace Capsule) 100 mg BIDPRN PRN PO FOR CONSTIPATION 12/17/24 15:30 12/18/24 09:57 DC Acetaminophen (Tylenol Tablet) 650 mg Q6HP PRN PO PAIN SCALE 1-3 OR TEMP>100.4 12/17/24 15:30 12/17/24 18:00 DC Midazolam HCl 50 ml @ 1 mls/hr Q24H IV 12/17/24 17:00 12/18/24 13:04 Nitroglycerin (Ntrostat Sublingual) 0.4 mg Q5MINP PRN SL FOR CHEST PAIN 12/17/24 17:45 12/18/24 09:57 DC Morphine Sulfate 2 mg Q30M PRN IV FOR CHEST PAIN 12/17/24 17:45 12/18/24 09:57 DC Piperacillin Sod/ Tazobactam Sod 100 ml @ 25 mls/hr Q6HR IV 12/18/24 00:00 12/18/24 05:34 DC 12/18/24 02:11 Valproate Sodium 250 mg/Sodium Chloride 52.5 ml @ 52.5 mls/hr BID IV 12/17/24 22:00 12/18/24 10:43 Propofol 100 ml @ 2.37 mls/hr Q24H IV 12/17/24 18:15 12/18/24 11:54 Acetaminophen (Tylenol Suppository) 650 mg Q6HP PRN MA PAIN SCALE 1-3 OR TEMP>100.4 12/17/24 18:00 12/18/24 01:19 Fentanyl Citrate 250 ml @ 2.5 mls/hr Q24H IV 12/17/24 21:15 12/17/24 21:40 Sodium Chloride 1,000 ml @ 120 mls/hr Q8H20M IV 12/18/24 01:45 12/18/24 08:24 Norepinephrine Bitartrate 250 ml @ 3.75 mls/hr Q24H IV 12/18/24 01:45 12/18/24 13:02 Piperacillin Sod/ Tazobactam Sod 100 ml @ 25 mls/hr Q6HR IV 12/18/24 12:00 12/18/24 12:19 Vasopressin 20 units/Sodium Chloride 100 ml @ 9 mls/hr Q11H7M IV 12/18/24 07:30 12/18/24 08:00 Phenylephrine HCl 250 ml @ 30 mls/hr Q8H20M IV 12/18/24 08:15 12/18/24 13:27 Epinephrine HCl 250 ml @ 7.5 mls/hr Q24H IV 12/18/24 10:15 Vital Signs Vital Signs Date Time Temp Pulse Resp B/P (MAP) Pulse Ox O2 Delivery O2 Flow Rate FiO2 12/18/24 13:27 110/77 12/18/24 12:07 93 20 98 45 12/18/24 07:00 100.2 212.4 12/18/24 06:00 Mechanical Ventilator+ 12/17/24 12:00 2 Labs/Diagnostic Data Labs Test 12/18/24 14:11 12/18/24 08:41 12/18/24 08:16 12/18/24 07:51 Range/Units HIV (1&2) Antibody Negative Negative Urine Color Dark-brown Yellow Urine Clarity Ex.turbid Clear Urine pH 6.0 5.0-9.0 Urine Specific [place] 1.041 H 1.001-1.035 Urine Protein 1+ H Negative Urine Ketones Negative Negative Urine Blood Trace H Negative /uL Urine Nitrite Negative Negative Urine Bilirubin Negative Negative Urine Urobilinogen Normal Negative mg/dL Urine Leukocyte Esterase Negative Negative /uL Urine RBC 30 0 - 3 /hpf Urine WBC Clumps Present None Seen /hpf Urine Microscopic WBC 151 H 0-3 /HPF Urine Squamous Epithelial Cells None seen <5 /hpf Urine Bacteria None seen None Seen /hpf Urine Mucus Few None Seen Urine Glucose Normal Normal mg/dL White Blood Count 4.6 # 4.4-10.8 10^3/uL Red Blood Count 4.96 4.5-5.90 10^6/uL Hemoglobin 15.4 13.5-17.5 g/dL Hematocrit 46.3 # 41.0-53.0 % Mean Corpuscular Volume 93.5 80.0-100.0 fL Mean Corpuscular Hemoglobin 31.1 28.0-32.0 pg Mean Corpuscular Hemoglobin Concent 33.3 32.0-36.0 g/dL Red Cell Distribution Width 14.8 H 11.8-14.3 % Platelet Count 303 140-450 10^3/uL Mean Platelet Volume 6.5 L 6.9-10.8 fL Neutrophils (%) (Auto) 37.0-80.0 % Lymphocytes (%) (Auto) 10.0-50.0 % Monocytes (%) (Auto) 0.0-12.0 % Basophils (%) (Auto) 0.0-2.0 % Neutrophils # (Auto) 1.6-8.6 10 ^3/uL Lymphocytes # (Auto) 0.4-5.4 10 ^3/uL Monocytes # (Auto) 0-1.3 10 ^3/uL Differential Total Cells Counted 100.0 100 Neutrophils % (Manual) 41 37.0-80.0 Band Neutrophils % (Manual) 31 Lymphocytes % (Manual) 22 10.0-50.0 Monocytes % (Manual) 5 0-12 Eosinophils % (Manual) 1 0-7 Basophils % (Manual) 0 0.0-2.0 Metamyelocytes % (manual) 0 Myelocytes % (Manual) 0 Promyelocytes % (Manual) 0 Blast Cells % (Manual) 0 Reactive Lymphocytes 0 Platelet Estimate Adequate Prothrombin Time 14.6 H 9.3-11.8 sec Prothrombin Time INR 1.43 H 0.9-1.15 Activated Partial Thromboplast Time 35.9 H 24.5-34.5 SEC Sodium Level 145 136-145 mmol/L Potassium Level 5.0 3.5-5.1 mmol/L Chloride Level 118 H 98-107 mmol/L Carbon Dioxide Level 18 L 20-31 mmol/L Anion Gap 9 5-15 Blood Urea Nitrogen 17 9-23 mg/dL Creatinine 0.92 0.700-1.30 mg/dL Glomerular Filtration Rate Calc 107 >90 mL/min BUN/Creatinine Ratio 18.5 10.0-20.0 Serum Glucose 125 H 74-106 mg/dL Lactic Acid Level 2.1 *H 0.4-2.0 mmol/L Calcium Level 7.3 L 8.7-10.4 mg/dL Total Bilirubin 0.2 0.2-1.0 mg/dL Aspartate Amino Transferase (AST) 16 13-40 U/L Alanine Aminotransferase (ALT) 9 7-40 U/L Alkaline Phosphatase 25 L 46-116 U/L Total Protein 4.3 L 5.7-8.2 g/dL Albumin 2.8 L 3.2-4.8 g/dL Thyroid Stimulating Hormone (TSH) 0.59 0.55-4.78 uIU/mL Test 12/18/24 02:44 12/18/24 01:59 12/18/24 01:35 12/18/24 00:18 Range/Units Urine Opiates Screen Neg NEGATIVE Urine Fentanyl Screen Pos NEGATIVE Urine Barbiturates Screen Neg NEGATIVE Urine Phencyclidine Screen Neg NEGATIVE Urine Amphetamines Screen Neg NEGATIVE Urine Benzodiazepines Screen Pos NEGATIVE Urine Cocaine Screen Neg NEGATIVE Urine Cannabinoids Screen Pos NEGATIVE Blood Gas Specimen Type Arterial Blood Gas Sample Site Left radial Blood Gas Patient Temperature 37.0 Arterial Blood Date Drawn [id number] Arterial Blood pH 7.382 7.350-7.450 Arterial Blood Partial Pressure CO2 28.8 L 35.0-48.0 mmHg Arterial Blood Partial Pressure O2 103.9 83.0-108.0 mmHg Arterial Blood HCO3 16.7 L 21.0-28.0 mmol/L Arterial Blood Oxygen Saturation 97.7 94.0-98.0 % Arterial Blood Base Excess -6.5 L -2.0-3.0 mmol/L Arterial Blood Oxyhemoglobin 97.2 94.0-98.0 % Arterial Blood Carboxyhemoglobin 0.0 L 0.5-1.5 % Arterial Blood Methemoglobin 0.5 0.0-1.5 % Manan Test Modified Blood Gas Total Hemoglobin 17.60 H 13.5-17.5 g/dL Blood Gas Set Respiration Rate 20.0 Blood Gas Modality Vent - ac FiO2 % 80.0 Blood Gas Tidal Volume 500.0 Eosinophils (%) (Auto) 0.6 0.0-7.0 % Eosinophils # (Auto) 0 0-0.8 10 ^3/uL Basophils # (Auto) 0 0-0.2 10 ^3/uL Nucleated Red Blood Cells 0.0 % POC Glucose 149 H 70-106 mg/dl Troponin I High Sensitivity 112 *H </=54 ng/L Test 12/17/24 20:03 12/17/24 19:38 12/17/24 13:09 12/17/24 11:58 Range/Units Blood Gas PEEP or CPAP 5.0 Blood Gas Liter Flow 3.00 Blood Gas Critical Value Read Back Yes Blood Gas Notified Whom Cedric moreira Blood Gas Notified Time [id number] Blood Gas Notified By [place] Hemoglobin A1c 5.3 <5.7 % A1C Lipase 38 12-53 U/L Microbiology Date/Time Source Procedure Growth Status 12/18/24 03:00 Nose MRSA Screen - Final Complete 12/17/24 17:30 Sputum Gram Stain Pending Resulted 12/17/24 17:30 Sputum Respiratory Culture - Preliminary Resulted Assessment 44 year old male with "colitis", intubated and sedated on multiple pressor agents to support his BP. needs colonoscopy to further evaluate "colitis". will follow with you/ Plan discussed with: Other HUMPHREY RUBIO MD Dec 18, 2024 14:34
--- NOTE | 2024-12-18 14:39 | DVH ---
INDICATION: rule out appendicits TECHNIQUE: Graded compression technique along with Multiple real-time sonographic images were obtain ed for evaluation of the right lower quadrant. FINDINGS: The appendix was not visualized. No free fluid or lymph nodes are seen on this exam. IMPRESSION: 1.Nonvisualization of the appendix, thus cannot exclude appendicitis.
--- NOTE | 2024-12-18 15:07 | MEDREC ---
[facility] Intervention Section I [facility] Intervention: Duplication of therapy (PLEASE CONSIDER D/C FLAGYL SINCE BOTH ZOSYN AND FLAGYL COVER FOR ANAEROBE ORGANISMS (DUPLICATE) ) DAVID GODDARD PHARMACIST Dec 18, 2024 15:07
[2024-12-18] MEDS ORDERED: VANCOMYCIN PER PHARMACY 0 MG IV SCH (15:45)
[2024-12-18] MEDS ORDERED: GABA-339 PO (17:07)
[2024-12-18] MEDS ORDERED: ALPR0.5T PO (17:07)
[2024-12-18] MEDS ORDERED: LEVE500T40 PO (17:09)
[2024-12-18] MEDS ORDERED: SERT-206 PO (17:10)
[2024-12-18] MEDS ORDERED: OXY5T PO (17:13)
[2024-12-18] MEDS: MEROPENEM 1GM IVPB 50 ML IV ONE (17:31)
[2024-12-18] MEDS ORDERED: ACETAMINOPHEN 325 MG TAB PO SCH (19:15)
[2024-12-18] MEDS: VANCOMYCIN 1.5GM/300ML 300 ML IV ONE (19:54)
[2024-12-18] MEDS: ACETAMINOPHEN IV 1000 MG/100ML (10MG/ML) IV ONE (20:09)
[2024-12-18] MEDS: MEROPENEM 1GM IVPB 50 ML IV SCH (22:00)
[2024-12-19] VITALS (108 sets, daily range): BP systolic 91–145; BP diastolic 59–103; PULSE 88–108; RESP 16–23; TEMP 97.7–99.7; O2SAT 94–100
--- NOTE | 2024-12-19 03:13 | DVH ---
CHEST RADIOGRAPH Indication: mech vent Technique: Single frontal view of the chest was obtained COMPARISON: XY CHEST PORTABLE on DOS: 12/18/24, XY CHEST XRAY 1 VIEW on DOS: 12/17/24, XY CHEST XRAY 1 V IEW on DOS: 12/17/24, XY CHEST PORTABLE on DOS: 12/17/24, XY CHEST PORTABLE on DOS: 02/25/23 FINDINGS: Lines and Tubes: Endotracheal tube tip projects approximately 2.0 cm above the level of the natalie. E nteric catheter terminates within the left upper quadrant, presumably within the gastric lumen. Righ t internal jugular central venous catheter terminates within the distal superior vena cava. Lungs: Moderate bibasilar atelectasis and left basilar pulmonary airspace disease. Suspected small l eft pleural effusion. No pneumothorax. Cardiomediastinal contours: Unremarkable Bones: Unremarkable IMPRESSION: 1. Left basilar pulmonary airspace disease and suspected small left pleural effusion. 2. Lines and tubes as above.
[2024-12-19 04:32] LABS: Alanine Aminotransferase 11 U/L (7-40); Anion Gap 11 (5-15); BUN/Creatinine Ratio 28.4 (10.0-20.0); Blood Urea Nitrogen 23 mg/dL (9-23); Glucose 93 mg/dL (74-106); Lipase 17 U/L (12-53); Potassium 4.3 mmol/L (3.5-5.1); Sodium 143 mmol/L (136-145)
[2024-12-19 04:41] LABS: Lactic Acid w/Reflex 2.8 mmol/L (0.4-2.0)
[2024-12-19 04:42] LABS: Albumin 3.0 g/dL (3.2-4.8); Alkaline Phosphatase 33 U/L (46-116); Bilirubin, Total 0.2 mg/dL (0.2-1.0); Calcium 7.2 mg/dL (8.7-10.4); Carbon Dioxide 18 mmol/L (20-31); Chloride 114 mmol/L (98-107); Magnesium 1.4 mg/dL (1.6-2.6); Total Protein 4.7 g/dL (5.7-8.2)
[2024-12-19 04:48] LABS: INR 1.51 (0.9-1.15); Partial Thromboplastin Time 46.5 SEC (24.5-34.5); Prothrombin Time 15.4 sec (9.3-11.8)
[2024-12-19 04:51] LABS: Hematocrit 43.7 % (41.0-53.0); Hemoglobin 14.7 g/dL (13.5-17.5); Mean Corpuscular Hemoglobin 31.0 pg (28.0-32.0); Mean Corpuscular Volume 92.3 fL (80.0-100.0); Nucleated Red Blood Cells % 0.0 %
[2024-12-19 06:26] LABS: Base Excess -8.2 mmol/L (-2.0-3.0)
--- NOTE | 2024-12-19 08:54 | ECG ---
[facility] Test Date: 2024-12-17 Test Time: 13:01:57 Pat Name: BARBRA TRUJILLO Department: ER Room: [address] [place] [address] A Gender: M [employer] Supervisor: GREGORY : [id number] Requested By: ISABEL EASLEY Order Number: [id number] Reading MD: Adonis Sanchez Measurements Intervals [place] Rate: 98 P: 41 AR: 143 QRS: 58 QRSD: 83 T: 19 QT: 350 QTc: 447 Interpretive Statements Sinus rhythm Baseline wander in lead(s) V1 Electronically Signed On 12-21-2024 9:43:03 PDT by Adonis Sanchez Please click the below link to view image of tracing.
[2024-12-19 10:04] LABS: Hepatitis B Surface Antigen Negative (Negative)
[2024-12-19] MEDS: MAGNESIUM SULFATE 1GM/100ML 100 ML IV SCH (10:04)
[2024-12-19] MEDS: ENOXAPARIN SOD 40 MG/0.4 ML SYRINGE SC SCH (10:05)
[2024-12-19 10:14] LABS: Hepatitis C Antibody Negative (Negative)
[2024-12-19] MEDS: VANCOMYCIN 1.25GM/250ML 250 ML IV SCH (10:18)
[2024-12-19 12:05] LABS: Hepatitis A Total Antibody Negative (Negative); Hepatitis B Surface Antigen Negative (Negative); Hepatitis C Antibody Negative (Negative)
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
[2024-12-19] MEDS: SODIUM BICARB 50mEq/50ml Vial 150 ML in D5W 5% 1,000 ML IV SCH (18:24)
[2024-12-19] MEDS: Jevity 1.2 Cal/Fiber 1 Liter GT SCH (23:30)
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
[2024-12-20] VITALS (107 sets, daily range): BP systolic 92–139; BP diastolic 61–97; PULSE 83–105; RESP 12–23; TEMP 96.4–99.9; O2SAT 96–100
[2024-12-20 04:09] LABS: Alanine Aminotransferase 10 U/L (7-40); Anion Gap 9 (5-15); BUN/Creatinine Ratio 31.6 (10.0-20.0); Blood Urea Nitrogen 18 mg/dL (9-23); Carbon Dioxide 23 mmol/L (20-31); Glucose 92 mg/dL (74-106); Sodium 143 mmol/L (136-145)
[2024-12-20 04:16] LABS: Hematocrit 35.2 % (41.0-53.0); Hemoglobin 12.0 g/dL (13.5-17.5); Mean Corpuscular Hemoglobin 31.1 pg (28.0-32.0); Mean Corpuscular Volume 91.6 fL (80.0-100.0)
[2024-12-20 04:26] LABS: Albumin 2.6 g/dL (3.2-4.8); Alkaline Phosphatase 43 U/L (46-116); Bilirubin, Total 0.2 mg/dL (0.2-1.0); Calcium 7.3 mg/dL (8.7-10.4); Chloride 111 mmol/L (98-107); Potassium 3.3 mmol/L (3.5-5.1); Total Protein 4.2 g/dL (5.7-8.2)
[2024-12-20 04:56] LABS: Total Cells Counted 100.0 (100)
--- NOTE | 2024-12-20 05:34 | DVH ---
CHEST RADIOGRAPH Indication: ACUTE RESPIRATORY FAILURE Technique: Single frontal view of the chest was obtained COMPARISON: XY CHEST XRAY 1 VIEW on DOS: 12/19/24, XY CHEST PORTABLE on DOS: 12/18/24, XY CHEST XRAY 1 EW on DOS: 12/17/24, XY CHEST XRAY 1 VIEW on DOS: 12/17/24, XY CHEST PORTABLE on DOS: 12/17/24 FINDINGS: Lines and Tubes: Endotracheal tube, enteric catheter and right central venous catheter in satisfactor y position Lungs: Congestion Pleura: Small bilateral pleural effusions No pneumothorax. Cardiomediastinal contours: Unremarkable Bones: Unremarkable IMPRESSION: Lines and tubes in satisfactory position. No significant interval change.
[2024-12-20] MEDS: POTASSIUM CHL 20MEQ/100ML 100 ML IV ONE (06:27)
[2024-12-20 07:14] LABS: Base Excess -2.6 mmol/L (-2.0-3.0)
--- NOTE | 2024-12-20 09:44 | DVH ---
Date: 12/20/2024 08:45 AM Examination: XY KUB ABDOMEN SINGLE VIEW History: colitis, pain Comparison: XY KUB ABDOMEN SINGLE VIEW on DOS: 12/18/24 TECHNIQUE: Frontal views of the abdomen was obtained. FINDINGS: Enteric tube tip projects over the expected region of stomach. Bibasilar opacities. Large stool burden. No acute osseous abnormality identified. Catheter projects over the pelvis which may represent Martinez catheter. IMPRESSION: Nonobstructive bowel gas pattern. Large stool burden. Enteric tube in appropriate position.
[2024-12-20] MEDS ORDERED: CLINIMIX PER PHARMACY 0 ML IV SCH (13:00)
[2024-12-20] MEDS: LACTATED RINGER'S 1,000 ML IV SCH (13:27)
[2024-12-20] MEDS: METOCLOPRAMIDE HCL 5MG/ml INJ 2ml VIAL IV ONE (13:28)
[2024-12-20 14:56] LABS: Magnesium 1.9 mg/dL (1.6-2.6)
[2024-12-20] MEDS: POTASSIUM CHL 20MEQ/100ML 100 ML IV SCH (15:21)
--- NOTE | 2024-12-20 15:57 | DVHSR ---
APPROVED REPORT EXAM: Two-dimensional and M-mode echocardiogram with Doppler and color Doppler. Blood Pressure: 126/86 mmHg INDICATION Dyspnea Septic Shock RISK FACTORS Height: 5'10", Weight: 199 DIMENSIONS LVDd4.5 (3.8-5.7cm)LA (2D)3.8 (1.9-4.0cm)Aortic Root3.4 (2.0-3.7cm) LVDs3.3 (2.5-4.0cm)LA (MM) (1.9-4.0cm)Aortic Cusp Exc1.5 (1.5-2.0cm) EF (%) 54.0 (55-70%)Rt. Atrium4.3 (1.9-4.0cm)Asc. Aorta cm IVSd0.6 (0.7-1.1cm)RV (D)4.0 (1.8-2.4cm) PWd0.9 (0.7-1.1cm) Mitral Valve MitralMitral Stenosis E wave0.60m/sMV Mean GR.mmHg A wave0.75m/sMV Peak GR.mmHg E/A ratio0.82D MVAcm2 DECEL [id number] 1/2 Timems Aortic Valve Aortic ValveAortic Stenosis V11.21m/Suleman Mean GR.4mmHg V21.33m/Suleman Peak GR.7mmHg LVOT Diameter2.1 (1.8-2.4cm)Doppler AVA3.15cm2 Pulmonic Valve V21.10m/s Other Information Quality : Technically LimitedRhythm : Conclusion LVEF 50-55%, RV normal no significant valve disease
[2024-12-20] MEDS: DEXTROSE (50%) 50ML SYRG IV SCH (17:47)
[2024-12-20] MEDS: ACCU-CHEK COMFORT CURVE STRIP VI SCH (17:47)
[2024-12-20] MEDS: InsuLIN REG 1unit/0.01ml Soln (100units/ml) SC SCH (17:47)
[2024-12-20] MEDS: POTASSIUM PHOSPHATE 26.4 MEQ in SODIUM CHL 0.9% 100 ML IV ONE (17:50)
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
[2024-12-20] MEDS: IOHEXOL 300 MG/ML 100ML BOTTLE IJ ONE (19:16)
--- NOTE | 2024-12-20 20:33 | DVH ---
Exam: CT CT ABD PELVIS W CON-ORAL IV History: rule out acute abdomen COMPARISON: CT CT CHEST/AB/PL W CON- IV ONLY on DOS: 12/17/24 Technique: Multidetector spiral CT of the abdomen and pelvis was performed from lung bases to pubic s ymphysis. Intravenous contrast was administered during this examination. Portal venous imaging was o btained. Axial, coronal and sagittal multiplanar reformats were performed by the technologist on a [employer] workstation. Radiation Dose : 1. Abdomen/Pelvis: CTDIvol 21.36mGy, DLP 1464.31 mGy*cm. CONTRAST: Type of contrast: Omnipaque 350 Contrast injected: 100 ml Findings: Small bilateral pleural effusions with bilateral lower lobe atelectasis. The liver, spleen, adrenal glands hello pancreas, and kidneys are within normal limits. The area blad saul is decompressed with small gas liquid level with a navarrete catheter. Section type enteric tube terminates in the proximal stomach. These small bowel is mildly dilated. Th ere is enteric contrast within the distal ilium and within the: Which is fluid filled and mildly dila pan. The distal: Is decompressed with mild mural stratification. A rectal probe is noted. There is haziness of the for mentum and mesentery with moderate volume abdominal sudha. The bones are remarkable. Status post left femur intramedullary daily ,partially imaged IMPRESSION: 1. Mild ileus pattern 2. Possible colitis at the hepatic flexure and within the distal and proximal sigmoid colon which may be infectious or inflammatory 3. Moderate volume of abdominal ascites 4. Small bilateral pleural fusions with bilateral lower lobe atelectasis Radiation optimization: All CT scans at this facility use at least one of these dose optimization corbin hniques: automated exposure control mA and/or kV adjustment per patient size (includes targeted exam s where dose is matched to clinical indication) or iterative reconstruction.
[2024-12-20] MEDS: FUROSEMIDE 40 MG/4 ML VIAL IV ONE (22:19)
[2024-12-20] MEDS: AMINO ACID INFUSION IN D10W 1,000 ML IV SCH (22:20)
[2024-12-20] MEDS: METOCLOPRAMIDE HCL 5MG/ml INJ 2ml VIAL IV PRN (23:46)
[2024-12-21] VITALS (106 sets, daily range): BP systolic 95–140; BP diastolic 59–103; PULSE 85–117; RESP 14–38; TEMP 93.2–100.4; O2SAT 96–100
[2024-12-21 03:34] LABS: Hematocrit 37.0 % (41.0-53.0); Hemoglobin 12.7 g/dL (13.5-17.5); Mean Corpuscular Hemoglobin 31.2 pg (28.0-32.0); Mean Corpuscular Volume 91.4 fL (80.0-100.0)
[2024-12-21 03:52] LABS: Alkaline Phosphatase 63 U/L (46-116); Anion Gap 9 (5-15); BUN/Creatinine Ratio 29.8 (10.0-20.0); Bilirubin, Total 0.5 mg/dL (0.2-1.0); Blood Urea Nitrogen 14 mg/dL (9-23); Carbon Dioxide 27 mmol/L (20-31); Chloride 106 mmol/L (98-107); Glucose 88 mg/dL (74-106); Magnesium 1.7 mg/dL (1.6-2.6); Sodium 142 mmol/L (136-145)
[2024-12-21 04:07] LABS: Alanine Aminotransferase 9 U/L (7-40); Albumin 2.6 g/dL (3.2-4.8); Calcium 7.5 mg/dL (8.7-10.4); Potassium 3.1 mmol/L (3.5-5.1); Total Protein 4.1 g/dL (5.7-8.2)
[2024-12-21] MEDS: POTASSIUM CHL 20MEQ/100ML 100 ML IV SCH (04:38)
[2024-12-21] MEDS: METOCLOPRAMIDE HCL 5MG/ml INJ 2ml VIAL IV ONE (04:48)
[2024-12-21 04:59] LABS: Triglycerides 415 mg/dL (< 150)
--- NOTE | 2024-12-21 05:43 | DVH ---
CHEST RADIOGRAPH Indication: mech vent Technique: Single frontal view of the chest was obtained COMPARISON: XY CHEST PORTABLE on DOS: 12/20/24, XY CHEST XRAY 1 VIEW on DOS: 12/19/24, XY CHEST PORTABLE on DOS: 12/18/24, XY CHEST XRAY 1 VIEW on DOS: 12/17/24, XY CHEST XRAY 1 VIEW on DOS: 12/17/24 FINDINGS: Lines and Tubes: Endotracheal tube, enteric catheter and right central venous catheter in satisfactor y position Lungs: Multifocal airspace disease Pleura: No effusion. No pneumothorax. Cardiomediastinal contours: Unremarkable Bones: Unremarkable IMPRESSION: Lines and tubes in satisfactory position. No significant interval change.
[2024-12-21 05:46] LABS: Smudge Cells 7 /100 WBC; Total Cells Counted 100.0 (100)
[2024-12-21 06:15] LABS: Base Excess 2.7 mmol/L (-2.0-3.0)
[2024-12-21] MEDS: ACETAMINOPHEN IV 1000 MG/100ML (10MG/ML) IV ONE (08:52)
[2024-12-21] MEDS: FLEET ENEMA(ADULT) 135 ML PR ONE (09:49)
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
--- NOTE | 2024-12-21 14:53 | DVHINCON2 ---
Date of service: Dec 21, [address] Bustamante Reason for Consultation Constipation abdominal distention possibly colitis History of Present Illness This 44-year-old male presented to the emergency room with complaints of right lower quadrant pain which started about a couple of hours support to the prior to the admission patient had pain has passing the bowel movement has been complaints of chronic constipation the pain was severe denied any nausea vomiting diarrhea apparently has colorectal constipation is not blood pain medi cations. No GI bleeding no hematemesis or melena because of the this patient is admitted he uses marijuana and history of substance abuse patient was agitation and hypoxia etc.. Patient has been having problems with bowel movements and abdominal distention CT scan had shown some colitis the right of the colon possibly nonspecific time patient also has got some ileus and some ascites. Progressively getting worse with more abdominal distention unable to feed properly also through the NG tube because of high residual nine hypomotility patient has got some electrolyte imbalance with low potassium and magnesium which is getting corrected slowly Side some enemas soapsuds enemas as well as attempts with oral laxatives and metoclopramide but without any good bowel movements or bowel decompression Past Medical History Gout and seizure Anxiety disorder Past Surgical History None Family History: FH: COPD (chronic obstructive pulmonary disease) G8 FATHER FH: coronary artery bypass surgery GRAND FATHER - MOTHER SIDE Family History Noncontributory Social History History of some as well as substance abuse as well as marijuana and pain med Allergies: Coded Allergies: NO KNOWN ALLERGIES (Unverified , 09/26/22) Home Meds Active Scripts Cyclobenzaprine Hcl (Cyclobenzaprine Hcl) 5 Mg Tab, 1 TAB PO QHSP, #14 TAB 0 Refills Prov:HARRY QUIROZ 08/16/23 Reported Medications Oxycodone Hcl (OXYCODONE HCL) 5 Mg Tb, 15 MG PO, TAB 12/18/24 Sertraline Hcl (Sertraline Hcl) 50 Mg Tab, 50 MG PO DAILY for 30 Days, MG 12/18/24 Levetiracetam (Keppra) 500 Mg Tab, 500 MG PO BID for 30 Days, MG 12/18/24 Alprazolam (Xanax) 0.5 Mg Tb, 1 TAB PO TID PRN for ANXIETY, #90 TAB 12/18/24 Gabapentin (Gabapentin) 600 Mg Tab, 1 TAB PO TID, #90 TAB 2 Refills 12/18/24 Trazodone Hcl (Trazodone Hcl) 50 Mg Tab, 50 MG PO HS, MG 12/18/24 Docusate Sodium (Colace) 100 Mg Cap, 1 CAP PO TID, #30 CAP 12/18/24 Divalproex Sodium (Divalproex Sodium Dr) 250 Mg Tab, 1 TAB PO BID 02/26/23 Discontinued Reported Medications Ondansetron Odt 4MG Tab (ZOFRAN PO) 4 Mg Tb, 4 MG PO BID, TAB ODT TAB-DISSOLVE IN MOUTH, THEN SWALLOW 12/18/24 Current Medications Current Medications Medications (Trade) Dose Ordered Sig/Sherron Route PRN Reason Start Time Stop Time Status Last Admin Diagnostic Test (Pha) (Accu-Chek Comfort Curve T) 1 strip Q6HR 12/20/24 18:00 12/21/24 05:04 Insulin Human Regular (InsuLIN R) FOLLOW SLIDING SCALE Q6HR SC 12/20/24 18:00 Amino Acids/ Electrolytes/ Dextrose 1,000 ml @ 41 mls/hr DAILY@2200 IV 12/20/24 22:00 12/20/24 22:20 Potassium Chloride 100 ml @ 50 mls/hr Q2H IV 12/21/24 04:30 12/21/24 08:29 DC 12/21/24 06:32 Review of Systems Noncontributory Vital Signs Vital Signs Date Time Temp Pulse Resp B/P (MAP) Pulse Ox O2 Delivery O2 Flow Rate FiO2 12/21/24 13:12 102 21 123/87 (99) 99 30 12/21/24 12:30 98.8 209.8 12/21/24 12:00 Mechanical Ventilator+ 12/19/24 08:00 45 Physical Exam Absolute built and nourished male who is intubated unresponsive on mass sedation and intubated HEENT examination no pallor no icterus Neck is supple no lymph node Lungs scattered rales Cardiovascular unremarkable Tympanic distention no rigidity no guarding no masses bowel sounds faint Extremities no edema Labs/Diagnostic Data Labs Test 12/21/24 11:54 12/21/24 06:10 12/21/24 03:00 12/20/24 09:19 Range/Units POC Glucose 89 70-106 mg/dl Blood Gas Specimen Type Arterial Blood Gas Sample Site Left radial Blood Gas Patient Temperature 37.0 Arterial Blood Date Drawn [id number] Arterial Blood pH 7.499 H 7.350-7.450 Arterial Blood Partial Pressure CO2 33.3 L 35.0-48.0 mmHg Arterial Blood Partial Pressure O2 93.0 83.0-108.0 mmHg Arterial Blood HCO3 25.3 21.0-28.0 mmol/L Arterial Blood Oxygen Saturation 97.1 94.0-98.0 % Arterial Blood Base Excess 2.7 -2.0-3.0 mmol/L Arterial Blood Oxyhemoglobin 95.8 94.0-98.0 % Arterial Blood Carboxyhemoglobin 0.9 0.5-1.5 % Arterial Blood Methemoglobin 0.4 0.0-1.5 % Manan Test Modified Blood Gas Total Hemoglobin 15.60 13.5-17.5 g/dL Blood Gas Set Respiration Rate 20.0 Blood Gas Modality Vent - ac FiO2 % 30.0 Blood Gas Tidal Volume 500.0 Blood Gas PEEP or CPAP 5.0 White Blood Count 9.9 4.4-10.8 10^3/uL Red Blood Count 4.06 L 4.5-5.90 10^6/uL Hemoglobin 12.7 L 13.5-17.5 g/dL Hematocrit 37.0 L 41.0-53.0 % Mean Corpuscular Volume 91.4 80.0-100.0 fL Mean Corpuscular Hemoglobin 31.2 28.0-32.0 pg Mean Corpuscular Hemoglobin Concent 34.2 32.0-36.0 g/dL Red Cell Distribution Width 15.0 H 11.8-14.3 % Platelet Count 175 140-450 10^3/uL Mean Platelet Volume 7.3 6.9-10.8 fL Neutrophils (%) (Auto) 37.0-80.0 % Lymphocytes (%) (Auto) 10.0-50.0 % Monocytes (%) (Auto) 0.0-12.0 % Basophils (%) (Auto) 0.0-2.0 % Neutrophils # (Auto) 1.6-8.6 10 ^3/uL Lymphocytes # (Auto) 0.4-5.4 10 ^3/uL Monocytes # (Auto) 0-1.3 10 ^3/uL Differential Total Cells Counted 100.0 100 Neutrophils % (Manual) 77 37.0-80.0 Band Neutrophils % (Manual) 2 Lymphocytes % (Manual) 8 L 10.0-50.0 Monocytes % (Manual) 9 0-12 Eosinophils % (Manual) 2 0-7 Basophils % (Manual) 0 0.0-2.0 Metamyelocytes % (manual) 0 Myelocytes % (Manual) 0 Promyelocytes % (Manual) 0 Blast Cells % (Manual) 2 Reactive Lymphocytes 0 Smudge Cells 7 /100 WBC Platelet Estimate Adequate Sodium Level 142 136-145 mmol/L Potassium Level 3.1 L 3.5-5.1 mmol/L Chloride Level 106 98-107 mmol/L Carbon Dioxide Level 27 20-31 mmol/L Anion Gap 9 5-15 Blood Urea Nitrogen 14 9-23 mg/dL Creatinine 0.47 L 0.700-1.30 mg/dL Glomerular Filtration Rate Calc 133 >90 mL/min BUN/Creatinine Ratio 29.8 H 10.0-20.0 Serum Glucose 88 74-106 mg/dL Calcium Level 7.5 L 8.7-10.4 mg/dL Phosphorus Level 2.1 L 2.4-5.1 mg/dL Magnesium Level 1.7 1.6-2.6 mg/dL Total Bilirubin 0.5 0.2-1.0 mg/dL Aspartate Amino Transferase (AST) 19 13-40 U/L Alanine Aminotransferase (ALT) 9 7-40 U/L Alkaline Phosphatase 63 46-116 U/L Total Protein 4.1 L 5.7-8.2 g/dL Albumin 2.6 L 3.2-4.8 g/dL Triglycerides Level 415 H < 150 mg/dL Valproic Acid Level 6.1 L 50-100 ug/mL Ammonia 23 11-32 umol/L Vancomycin Level Trough 13.8 H 5-10 ug/mL Test 12/20/24 09:16 12/19/24 03:30 12/18/24 08:41 12/18/24 08:16 Range/Units Lactic Acid Level 1.9 0.4-2.0 mmol/L Eosinophils (%) (Auto) 0.1 0.0-7.0 % Eosinophils # (Auto) 0 0-0.8 10 ^3/uL Basophils # (Auto) 0.1 0-0.2 10 ^3/uL Nucleated Red Blood Cells 0.0 % Prothrombin Time 15.4 H 9.3-11.8 sec Prothrombin Time INR 1.51 H 0.9-1.15 Activated Partial Thromboplast Time 46.5 H 24.5-34.5 SEC Lipase 17 12-53 U/L Random Vancomycin Level 7.5 5-10 ug/mL Hepatitis A Antibody Total Negative Negative Hepatitis B Surface Antigen Negative Negative Hepatitis B Surface Antibody Negative Negative Hepatitis B Core Total Antibody Negative Negative Hepatitis C Antibody Negative Negative Hepatitis A IgM Antibody Negative Hepatitis B Core IgM Antibody Negative Negative HIV (1&2) Antibody Negative Negative Urine Color Dark-brown Yellow Urine Clarity Ex.turbid Clear Urine pH 6.0 5.0-9.0 Urine Specific [place] 1.041 H 1.001-1.035 Urine Protein 1+ H Negative Urine Ketones Negative Negative Urine Blood Trace H Negative /uL Urine Nitrite Negative Negative Urine Bilirubin Negative Negative Urine Urobilinogen Normal Negative mg/dL Urine Leukocyte Esterase Negative Negative /uL Urine RBC 30 0 - 3 /hpf Urine WBC Clumps Present None Seen /hpf Urine Microscopic WBC 151 H 0-3 /HPF Urine Squamous Epithelial Cells None seen <5 /hpf Urine Bacteria None seen None Seen /hpf Urine Mucus Few None Seen Urine Glucose Normal Normal mg/dL Test 12/18/24 07:51 12/18/24 02:44 12/18/24 00:18 12/17/24 19:38 Range/Units Uric Acid 5.1 3.7-9.2 mg/dL Thyroid Stimulating Hormone (TSH) 0.59 0.55-4.78 uIU/mL Urine Opiates Screen Neg NEGATIVE Urine Fentanyl Screen Pos NEGATIVE Urine Barbiturates Screen Neg NEGATIVE Urine Phencyclidine Screen Neg NEGATIVE Urine Amphetamines Screen Neg NEGATIVE Urine Benzodiazepines Screen Pos NEGATIVE Urine Cocaine Screen Neg NEGATIVE Urine Cannabinoids Screen Pos NEGATIVE Troponin I High Sensitivity 112 *H </=54 ng/L Test 12/17/24 13:09 12/17/24 11:58 Range/Units Blood Gas Liter Flow 3.00 Blood Gas Critical Value Read Back Yes Blood Gas Notified Whom Cedric lebron. Blood Gas Notified Time [id number] Blood Gas Notified By Fransisco solis Hemoglobin A1c 5.3 <5.7 % A1C Microbiology Date/Time Source Procedure Growth Status 12/18/24 08:51 Blood Blood Culture - Preliminary NO GROWTH AFTER 72 HOURS OF INCUBATION. Resulted 12/18/24 08:16 Voided Urine Urine Culture - Final Complete 12/18/24 03:00 Nose MRSA Screen - Final Complete 12/17/24 17:30 Sputum Gram Stain - Final Complete 12/17/24 17:30 Sputum Respiratory Culture - Final Complete Assessment 54-year-old male with a history of abdominal pain sharp radiating to the upper abdomen as well as lower abdomen with nausea and constipation patient had history of gout and seizures patient was intubated because of agitation etc. Patient is intubated tenderness in the ICU but has been having problems with gastric stasis ileus as well as colonic distention with some colonic ileus and colon mild colitis nonspecific Patient has been tried on metoclopramide stool softeners lactulose etc. for bowel movements apparently had no BMs Scan showed some ileus as well as some mild colitis but no evidence of any [place] syndrome or other pathology Clinical impression Possible ileus, gastroparesis and even colonic ileus with electrolytes imbalance and metabolic encephalopathy No evidence of Marilin's syndrome[pseudo-obstruction of colon] Plan/Recommendation Try MiraLax with a NG tube Correct electrolytes, especially magnesium and potassium IV Reglan Soapsuds or tap water enemas Gastro [place] small bowel study through NG tube If Not tolerating Gastrografin enema KUB in the morning to ensure there is no gastric outlet obstruction His overall prognosis is guarded Thank you Dr. Forbes Plan discussed with: Other LATOYA FORBES MD Dec 21, 2024 14:53
[2024-12-21] MEDS: METOCLOPRAMIDE HCL 5MG/ml INJ 2ml VIAL IV PRN (19:29)
[2024-12-22] VITALS (112 sets, daily range): BP systolic 107–165; BP diastolic 74–116; PULSE 82–114; RESP 13–30; TEMP 97.3–100.4; O2SAT 95–100
[2024-12-22 04:23] LABS: Alkaline Phosphatase 53 U/L (46-116); Anion Gap 10 (5-15); BUN/Creatinine Ratio 23.8 (10.0-20.0); Bilirubin, Total 0.4 mg/dL (0.2-1.0); Blood Urea Nitrogen 10 mg/dL (9-23); Carbon Dioxide 26 mmol/L (20-31); Chloride 102 mmol/L (98-107); Glucose 105 mg/dL (74-106); Magnesium 1.6 mg/dL (1.6-2.6); Sodium 138 mmol/L (136-145)
[2024-12-22 04:32] LABS: Hematocrit 38.2 % (41.0-53.0); Hemoglobin 13.0 g/dL (13.5-17.5); Mean Corpuscular Hemoglobin 30.9 pg (28.0-32.0); Mean Corpuscular Volume 90.7 fL (80.0-100.0)
[2024-12-22 04:33] LABS: Alanine Aminotransferase < 9 U/L (7-40); Albumin 2.7 g/dL (3.2-4.8); Calcium 7.6 mg/dL (8.7-10.4); Potassium 2.6 mmol/L (3.5-5.1); Total Protein 4.7 g/dL (5.7-8.2)
[2024-12-22] MEDS: MAGNESIUM SULFATE 1GM/100ML 100 ML IV ONE ×2 (05:22→12:29)
--- NOTE | 2024-12-22 06:10 | DVH ---
CHEST RADIOGRAPH Indication: intubated Technique: Single frontal view of the chest was obtained Comparison: XY CHEST XRAY 1 VIEW on DOS: 12/21/24, XY CHEST PORTABLE on DOS: 12/20/24, XY CHEST XRAY 1 EW on DOS: 12/19/24, XY CHEST PORTABLE on DOS: 12/18/24, XY CHEST XRAY 1 VIEW on DOS: 12/17/24, XY CHEST X RAY 1 VIEW on DOS: 12/21/24 FINDINGS: Lines and Tubes: Endotracheal tube, enteric catheter and right central venous catheter in satisfactor y position Lungs: Multifocal airspace disease Pleura: No effusion. No pneumothorax. Cardiomediastinal contours: Unremarkable Bones: Unremarkable IMPRESSION: Lines and tubes in satisfactory position. No significant interval change.
[2024-12-22] MEDS: POTASSIUM CHL 20MEQ/100ML 100 ML IV SCH ×2 (06:13→12:29)
[2024-12-22 06:50] LABS: Smudge Cells 4 /100 WBC; Total Cells Counted 100.0 (100)
[2024-12-22 07:41] LABS: Base Excess 0.4 mmol/L (-2.0-3.0)
--- NOTE | 2024-12-22 09:21 | DVH ---
EXAM: XR Abdomen, 1 View CLINICAL INDICATION: constipation TECHNIQUE: Frontal supine view of the abdomen/pelvis. COMPARISON: No relevant prior studies available. FINDINGS: GASTROINTESTINAL TRACT: Fecal retention in the colon consistent with constipation. No dilation. BONES/JOINTS: Unremarkable. No acute fracture. TUBES, LINES AND DEVICES: NG tube is in the stomach. OTHER FINDINGS: Comparison XY KUB ABDOMEN SINGLE VIEW on DOS: 12/20/24, XY KUB ABDOMEN SINGLE VIEW on DOS: 12/18/24. . IMPRESSION: Fecal retention in the colon consistent with constipation. HS:Y
[2024-12-22] MEDS: POLYETHYLENE GLYCOL 17 GM PWDR PO SCH (09:55)
[2024-12-22] MEDS: GASTROGRAFIN 120 ML SOL ONE (12:10)
--- NOTE | 2024-12-22 12:10 | DVHPN2 ---
Assessment/Plan Assessment/Plan ICU note 44 M with epilepsy and chronic pain admitted for abdominal pain, agitated and restless, worsening resp status leads to intubation, seen today, replete K. start diuresis. gastrografin. still no BM after enema. 500 cc residual in NGT. physical exam intubated, sedated on mechanical vent PERRLA MMM mechanical breath sounds s1 s2 tachy abdomen slightly tense anasarca labs ekg imaging reviewed assessment and plan acute metabolic encephalopathy epilepsy septic shock UTI? pNA? acute hypoxic rf req mechanical vent ascites severe constipation gastroparesis esophageal varices? gout chronic pain hypokalemia c/w mechanical vent, dec rate to 16 c/w pressor maintain MAP >65 c/w vanc and cadence MiraLAX, enema reglan gastrografin diurese to goal net neg stop ivfluid start methylnaltrexone diet NPO dvt ppx lovenox gi ppx protonix full code condition critical prognosis poor 60 minutes critical care time rendered Plan discussed with: Other My Orders Orders - BELLA PIPER MD Procedure Category Date Status Time Magnesium Sulfate PHA 12/22/24 In Process 1gm/100ml 12:00 Potassium Chl PHA 12/22/24 In Process 20meq/100ml 12:00 Small Bowel Series-W XY 12/22/24 Logged Gastrogra 11:54 Ventilator Orders RT 12/22/24 Transmitted 12:04 Date of Service: Dec 22, 2024 Billing Provider: BELLA PIPER MD Common Visit Codes: [id number] CARE 30-74 MIN BELLA PIPRE MD Dec 22, 2024 12:10
--- NOTE | 2024-12-22 14:12 | DVHPN2 ---
Progress Note - Dictate Date Seen: Dec 22, 2024 Has the PT tested + for MRSA If YES, has PT been informed?: No Medical Necessity Reason Pt with a Central, PICC or Fol: No Subjective Patient is having and still no bowel movements and copious gastric retention NG- tube had drainage of 500 cc No bleeding vital signs Vital Sign Date Time Temp Pulse Resp B/P (MAP) Pulse Ox O2 Delivery O2 Flow Rate FiO2 12/22/24 13:42 103 26 138/89 (105) 98 30 12/22/24 13:30 99.1 210.4 12/22/24 09:40 Mechanical Ventilator+ Total Intake and Output 12/21/24 12/21/24 12/22/24 15:00 23:00 07:00 Intake Total 1479.4 ml 1331.30 ml 1156.77 ml Output Total 700 ml 1050 ml Balance 1479.4 ml 631.30 ml 106.77 ml medications Current Medications Medications Dose Ordered Sig/Sherron Route Start Time Stop Time Status Last Admin Dose Admin Pantoprazole Sodium 40 mg DAILY IV 12/18/24 10:00 12/22/24 09:55 40 MG Sodium Chloride 10 ml Q8HR IV 12/17/24 22:00 12/22/24 05:22 10 ML Midazolam HCl 50 ml @ 1 mls/hr Q24H IV 12/17/24 17:00 12/22/24 04:37 4 MLS/HR Valproate Sodium 250 mg/Sodium Chloride 52.5 ml @ 52.5 mls/hr BID IV 12/17/24 22:00 12/22/24 09:50 52.5 MLS/HR Propofol 100 ml @ 2.37 mls/hr Q24H IV 12/17/24 18:15 12/22/24 12:47 11.85 MLS/HR Fentanyl Citrate 250 ml @ 2.5 mls/hr Q24H IV 12/17/24 21:15 12/21/24 01:37 10 MLS/HR Norepinephrine Bitartrate 250 ml @ 3.75 mls/hr Q24H IV 12/18/24 01:45 12/20/24 00:01 30 MLS/HR Meropenem 50 ml @ 17 mls/hr Q8HR IV 12/18/24 22:00 12/22/24 05:21 17 MLS/HR Vancomycin HCl 0 ml @ 0 mls/hr UD IV 12/18/24 15:45 Enoxaparin Sodium 40 mg DAILY SC 12/19/24 10:00 12/22/24 09:55 40 MG Vancomycin HCl 250 ml @ 200 mls/hr Q8H IV 12/19/24 10:00 12/22/24 12:29 200 MLS/HR Amino Acids 0 ml @ 0 mls/hr PER PHARMACY IV 12/20/24 13:00 Diagnostic Test (Pha) 1 strip Q6HR 12/20/24 18:00 12/22/24 11:59 1 STRIP Insulin Human Regular FOLLOW SLIDING SCALE Q6HR SC 12/20/24 18:00 Dextrose 50 ml UD IV 12/20/24 14:15 12/20/24 17:47 50 ML Amino Acids/ Electrolytes/ Dextrose 1,000 ml @ 41 mls/hr DAILY@2200 IV 12/20/24 22:00 12/21/24 22:10 41 MLS/HR Metoclopramide HCl 5 mg Q8HR PRN IV 12/21/24 22:00 12/22/24 06:08 5 MG Polyethylene Glycol 17 gm DAILY PO 12/22/24 10:00 12/22/24 09:55 17 GM Potassium Chloride 100 ml @ 50 mls/hr Q2H IV 12/22/24 12:00 12/22/24 15:59 12/22/24 12:29 50 MLS/HR objective Abdomen is mildly distended but no rigidity no guarding no masses Magnesium is still low Potassium is low laboratory and microbiology Laboratory Tests 12/22/24 03:02 Test 12/22/24 03:02 Range/Units Serum Glucose 105 74-106 mg/dL Assessment/Plan 54-year-old male with a history of abdominal pain sharp radiating to the upper abdomen as well as lower abdomen with nausea and constipation patient had history of gout and seizures patient was intubated because of agitation etc. Patient is intubated tenderness in the ICU but has been having problems with gastric stasis ileus as well as colonic distention with some colonic ileus and colon mild colitis nonspecific Patient has been tried on metoclopramide stool softeners lactulose etc. for bowel movements apparently had no BMs Scan showed some ileus as well as some mild colitis but no evidence of any Vega syndrome or other pathology Clinical impression Possible ileus, gastroparesis and even colonic ileus with electrolytes imbalance and metabolic encephalopathy No evidence of Marilin's syndrome[pseudo-obstruction of colon] Recommend to correct the potassium and magnesium aggressively Continue the enemas and MiraLax Recommend small bowel series with Gastrografin and if not possible or ineffective Gastrografin enema Thank you Dr. Forbes Dietary Evaluation Review Comments: 1. TF: Vital AF@50ml/hr (90g protein, 1440kcal 973 free water) meeting Protein needs 83%, energy needs 80%. 2. TPN per pharmacy meeting 75% of his needs if TF not feasible or NPO>7 days. 3. Diet as tolerated per HOURLY CAREGIVER eval when off Vent Expected Outcomes/Goals: Preventing catabolism Plan discussed with: Patient LATOYA FORBES MD Dec 22, 2024 14:12
[2024-12-22] MEDS: METOCLOPRAMIDE HCL 5MG/ml INJ 2ml VIAL ONE (15:40)
[2024-12-22] MEDS: METHYLNALTREXONE BROMIDE 12 MG/0.6 ML VIAL SC ONE (15:40)
[2024-12-22] MEDS: METOCLOPRAMIDE HCL 5MG/ml INJ 2ml VIAL IV ONE (15:44)
[2024-12-22] MEDS ORDERED: ACETAMINOPHEN 650 mg PER 20.3 mL UD GT PRN (20:30)
[2024-12-22] MEDS: ACETAMINOPHEN 650 MG RECT SUPP PR PRN (21:06)
--- NOTE | 2024-12-22 22:18 | DVHINCON2 ---
Date of service: Dec 22, 2024 Family History: FH: COPD (chronic obstructive pulmonary disease) G8 FATHER FH: coronary artery bypass surgery GRAND FATHER - MOTHER SIDE Allergies: Coded Allergies: NO KNOWN ALLERGIES (Unverified , 09/26/22) Home Meds Active Scripts Cyclobenzaprine Hcl (Cyclobenzaprine Hcl) 5 Mg Tab, 1 TAB PO QHSP, #14 TAB 0 Refills Prov:HARRY QUIROZ 08/16/23 Reported Medications Oxycodone Hcl (OXYCODONE HCL) 5 Mg Tb, 15 MG PO, TAB 12/18/24 Sertraline Hcl (Sertraline Hcl) 50 Mg Tab, 50 MG PO DAILY for 30 Days, MG 12/18/24 Levetiracetam (Keppra) 500 Mg Tab, 500 MG PO BID for 30 Days, MG 12/18/24 Alprazolam (Xanax) 0.5 Mg Tb, 1 TAB PO TID PRN for ANXIETY, #90 TAB 12/18/24 Gabapentin (Gabapentin) 600 Mg Tab, 1 TAB PO TID, #90 TAB 2 Refills 12/18/24 Trazodone Hcl (Trazodone Hcl) 50 Mg Tab, 50 MG PO HS, MG 12/18/24 Docusate Sodium (Colace) 100 Mg Cap, 1 CAP PO TID, #30 CAP 12/18/24 Divalproex Sodium (Divalproex Sodium Dr) 250 Mg Tab, 1 TAB PO BID 02/26/23 Discontinued Reported Medications Ondansetron Odt 4MG Tab (ZOFRAN PO) 4 Mg Tb, 4 MG PO BID, TAB ODT TAB-DISSOLVE IN MOUTH, THEN SWALLOW 12/18/24 Current Medications Current Medications Medications (Trade) Dose Ordered Sig/Sherron Route PRN Reason Start Time Stop Time Status Last Admin Polyethylene Glycol (Miralax 17GM Powder) 17 gm DAILY PO 12/22/24 10:00 12/22/24 09:55 Potassium Chloride 100 ml @ 50 mls/hr Q2H IV 12/22/24 05:15 12/22/24 09:14 DC 12/22/24 08:15 Potassium Chloride 100 ml @ 50 mls/hr Q2H IV 12/22/24 12:00 12/22/24 15:59 DC 12/22/24 15:41 Metoclopramide HCl (Reglan Injection) 5 mg Q8HR IV 12/22/24 22:00 Acetaminophen (Tylenol Solution Oral) 650 mg Q6HP PRN GT PAIN SCALE 1-3 OR TEMP>100.4 12/22/24 20:30 12/22/24 20:49 DC Acetaminophen (Tylenol Suppository) 650 mg Q6HP PRN SC PAIN SCALE 1-3 OR TEMP>100.4 12/22/24 21:00 12/22/24 21:06 Vital Signs Vital Signs Date Time Temp Pulse Resp B/P (MAP) Pulse Ox O2 Delivery O2 Flow Rate FiO2 12/22/24 22:07 101 27 140/88 (105) 98 30 12/22/24 21:45 99.3 210.7 12/22/24 20:00 Mechanical Ventilator+ Labs/Diagnostic Data Labs Test 12/22/24 17:53 12/22/24 17:00 12/22/24 07:08 12/22/24 03:02 Range/Units POC Glucose 113 H 70-106 mg/dl Vancomycin Level Trough 20.3 H 5-10 ug/mL Blood Gas Specimen Type Arterial Blood Gas Sample Site Left radial Blood Gas Patient Temperature 37.0 Arterial Blood Date Drawn [id number] Arterial Blood pH 7.482 H 7.350-7.450 Arterial Blood Partial Pressure CO2 31.5 L 35.0-48.0 mmHg Arterial Blood Partial Pressure O2 80.0 L 83.0-108.0 mmHg Arterial Blood HCO3 23.0 21.0-28.0 mmol/L Arterial Blood Oxygen Saturation 95.8 94.0-98.0 % Arterial Blood Base Excess 0.4 -2.0-3.0 mmol/L Arterial Blood Oxyhemoglobin 95.3 94.0-98.0 % Arterial Blood Carboxyhemoglobin 0.1 L 0.5-1.5 % Arterial Blood Methemoglobin 0.4 0.0-1.5 % Manan Test Modified Blood Gas Total Hemoglobin 14.10 13.5-17.5 g/dL Blood Gas Set Respiration Rate 20.0 Blood Gas Modality Vent - ac FiO2 % 30.0 Blood Gas Tidal Volume 500.0 Blood Gas PEEP or CPAP 5.0 White Blood Count 12.1 H 4.4-10.8 10^3/uL Red Blood Count 4.21 L 4.5-5.90 10^6/uL Hemoglobin 13.0 L 13.5-17.5 g/dL Hematocrit 38.2 L 41.0-53.0 % Mean Corpuscular Volume 90.7 80.0-100.0 fL Mean Corpuscular Hemoglobin 30.9 28.0-32.0 pg Mean Corpuscular Hemoglobin Concent 34.0 32.0-36.0 g/dL Red Cell Distribution Width 15.3 H 11.8-14.3 % Platelet Count 200 140-450 10^3/uL Mean Platelet Volume 7.5 6.9-10.8 fL Neutrophils (%) (Auto) 37.0-80.0 % Lymphocytes (%) (Auto) 10.0-50.0 % Monocytes (%) (Auto) 0.0-12.0 % Basophils (%) (Auto) 0.0-2.0 % Neutrophils # (Auto) 1.6-8.6 10 ^3/uL Lymphocytes # (Auto) 0.4-5.4 10 ^3/uL Monocytes # (Auto) 0-1.3 10 ^3/uL Differential Total Cells Counted 100.0 100 Neutrophils % (Manual) 87 H 37.0-80.0 Band Neutrophils % (Manual) 0 Lymphocytes % (Manual) 4 L 10.0-50.0 Monocytes % (Manual) 8 0-12 Eosinophils % (Manual) 0 0-7 Basophils % (Manual) 0 0.0-2.0 Metamyelocytes % (manual) 0 Myelocytes % (Manual) 0 Promyelocytes % (Manual) 0 Blast Cells % (Manual) 1 Reactive Lymphocytes 0 Smudge Cells 4 /100 WBC Platelet Estimate Adequate Sodium Level 138 136-145 mmol/L Potassium Level 2.6 L 3.5-5.1 mmol/L Chloride Level 102 98-107 mmol/L Carbon Dioxide Level 26 20-31 mmol/L Anion Gap 10 5-15 Blood Urea Nitrogen 10 9-23 mg/dL Creatinine 0.42 L 0.700-1.30 mg/dL Glomerular Filtration Rate Calc 138 >90 mL/min BUN/Creatinine Ratio 23.8 H 10.0-20.0 Serum Glucose 105 74-106 mg/dL Calcium Level 7.6 L 8.7-10.4 mg/dL Phosphorus Level 2.5 2.4-5.1 mg/dL Magnesium Level 1.6 1.6-2.6 mg/dL Total Bilirubin 0.4 0.2-1.0 mg/dL Aspartate Amino Transferase (AST) 14 13-40 U/L Alanine Aminotransferase (ALT) < 9 7-40 U/L Alkaline Phosphatase 53 46-116 U/L Total Protein 4.7 L 5.7-8.2 g/dL Albumin 2.7 L 3.2-4.8 g/dL Valproic Acid Level 7.9 L 50-100 ug/mL Test 12/21/24 03:00 12/20/24 09:19 12/20/24 09:16 12/19/24 03:30 Range/Units Triglycerides Level 415 H < 150 mg/dL Ammonia 23 11-32 umol/L Lactic Acid Level 1.9 0.4-2.0 mmol/L Eosinophils (%) (Auto) 0.1 0.0-7.0 % Eosinophils # (Auto) 0 0-0.8 10 ^3/uL Basophils # (Auto) 0.1 0-0.2 10 ^3/uL Nucleated Red Blood Cells 0.0 % Prothrombin Time 15.4 H 9.3-11.8 sec Prothrombin Time INR 1.51 H 0.9-1.15 Activated Partial Thromboplast Time 46.5 H 24.5-34.5 SEC Lipase 17 12-53 U/L Random Vancomycin Level 7.5 5-10 ug/mL Hepatitis A Antibody Total Negative Negative Hepatitis B Surface Antigen Negative Negative Hepatitis B Surface Antibody Negative Negative Hepatitis B Core Total Antibody Negative Negative Hepatitis C Antibody Negative Negative Test 12/18/24 08:41 12/18/24 08:16 12/18/24 07:51 12/18/24 02:44 Range/Units Hepatitis A IgM Antibody Negative Hepatitis B Core IgM Antibody Negative Negative HIV (1&2) Antibody Negative Negative Urine Color Dark-brown Yellow Urine Clarity Ex.turbid Clear Urine pH 6.0 5.0-9.0 Urine Specific Luther 1.041 H 1.001-1.035 Urine Protein 1+ H Negative Urine Ketones Negative Negative Urine Blood Trace H Negative /uL Urine Nitrite Negative Negative Urine Bilirubin Negative Negative Urine Urobilinogen Normal Negative mg/dL Urine Leukocyte Esterase Negative Negative /uL Urine RBC 30 0 - 3 /hpf Urine WBC Clumps Present None Seen /hpf Urine Microscopic WBC 151 H 0-3 /HPF Urine Squamous Epithelial Cells None seen <5 /hpf Urine Bacteria None seen None Seen /hpf Urine Mucus Few None Seen Urine Glucose Normal Normal mg/dL Uric Acid 5.1 3.7-9.2 mg/dL Thyroid Stimulating Hormone (TSH) 0.59 0.55-4.78 uIU/mL Urine Opiates Screen Neg NEGATIVE Urine Fentanyl Screen Pos NEGATIVE Urine Barbiturates Screen Neg NEGATIVE Urine Phencyclidine Screen Neg NEGATIVE Urine Amphetamines Screen Neg NEGATIVE Urine Benzodiazepines Screen Pos NEGATIVE Urine Cocaine Screen Neg NEGATIVE Urine Cannabinoids Screen Pos NEGATIVE Test 12/18/24 00:18 12/17/24 19:38 12/17/24 13:09 12/17/24 11:58 Range/Units Troponin I High Sensitivity 112 *H </=54 ng/L Blood Gas Liter Flow 3.00 Blood Gas Critical Value Read Back Yes Blood Gas Notified Whom Cedric lebron. Blood Gas Notified Time [id number] Blood Gas Notified By Fransisco solis Hemoglobin A1c 5.3 <5.7 % A1C Microbiology Date/Time Source Procedure Growth Status 12/18/24 08:51 Blood Blood Culture - Preliminary NO GROWTH AFTER 72 HOURS OF INCUBATION. Resulted 12/18/24 08:16 Voided Urine Urine Culture - Final Complete 12/18/24 03:00 Nose MRSA Screen - Final Complete 12/17/24 17:30 Sputum Gram Stain - Final Complete 12/17/24 17:30 Sputum Respiratory Culture - Final Complete QUINN LANDON MD Dec 22, 2024 22:18
[2024-12-22] MEDS: METOCLOPRAMIDE HCL 5MG/ml INJ 2ml VIAL IV SCH (22:25)
[2024-12-23] VITALS (102 sets, daily range): BP systolic 100–164; BP diastolic 54–97; PULSE 84–101; RESP 13–24; TEMP 99.1–100.6; O2SAT 89–100
[2024-12-23 04:03] LABS: Hematocrit 36.1 % (41.0-53.0); Hemoglobin 12.3 g/dL (13.5-17.5); Mean Corpuscular Hemoglobin 30.9 pg (28.0-32.0); Mean Corpuscular Volume 90.4 fL (80.0-100.0)
[2024-12-23 04:21] LABS: Alkaline Phosphatase 49 U/L (46-116); Anion Gap 10 (5-15); BUN/Creatinine Ratio 26.2 (10.0-20.0); Bilirubin, Total 0.3 mg/dL (0.2-1.0); Blood Urea Nitrogen 11 mg/dL (9-23); Carbon Dioxide 27 mmol/L (20-31); Chloride 104 mmol/L (98-107); Glucose 102 mg/dL (74-106); Magnesium 2.0 mg/dL (1.6-2.6); Sodium 141 mmol/L (136-145)
[2024-12-23 04:22] LABS: Alanine Aminotransferase < 9 U/L (7-40); Albumin 3.0 g/dL (3.2-4.8); Calcium 7.9 mg/dL (8.7-10.4); Potassium 2.9 mmol/L (3.5-5.1); Total Protein 5.2 g/dL (5.7-8.2)
[2024-12-23 05:37] LABS: Total Cells Counted 100.0 (100)
[2024-12-23 07:58] LABS: Base Excess 3.0 mmol/L (-2.0-3.0)
--- NOTE | 2024-12-23 08:48 | DVHPN2 ---
Progress Note - Dictate Date Seen: Dec 22, 2024 Has the PT tested + for MRSA If YES, has PT been informed?: No Medical Necessity Reason Pt with a Central, PICC or Fol: Yes The following are medically ne: Navarrete Catheter Reason for navarrete catheter: Strict I&O Subjective Patient seen and examined at bedside. Sedated, intubated on mechanical ventilator. Overnight events reviewed. vital signs Vital Sign Date Time Temp Pulse Resp B/P (MAP) Pulse Ox O2 Delivery O2 Flow Rate FiO2 12/23/24 08:25 132/82 12/23/24 06:37 94 20 98 30 12/23/24 06:30 99.9 211.8 12/23/24 06:00 Mechanical Ventilator+ Total Intake and Output 12/22/24 12/22/24 12/23/24 14:59 22:59 06:59 Intake Total 1268.80 ml 668.04 ml 662.2 ml Output Total 825 ml 3100 ml Balance 1268.80 ml -156.96 ml -2437.8 ml medications Current Medications Medications Dose Ordered Sig/Sherron Route Start Time Stop Time Status Last Admin Dose Admin Pantoprazole Sodium 40 mg DAILY IV 12/18/24 10:00 12/22/24 09:55 40 MG Sodium Chloride 10 ml Q8HR IV 12/17/24 22:00 12/23/24 05:31 10 ML Midazolam HCl 50 ml @ 1 mls/hr Q24H IV 12/17/24 17:00 12/23/24 08:23 6 MLS/HR Valproate Sodium 250 mg/Sodium Chloride 52.5 ml @ 52.5 mls/hr BID IV 12/17/24 22:00 12/22/24 22:24 52.5 MLS/HR Propofol 100 ml @ 2.37 mls/hr Q24H IV 12/17/24 18:15 12/23/24 08:23 23.7 MLS/HR Fentanyl Citrate 250 ml @ 2.5 mls/hr Q24H IV 12/17/24 21:15 12/23/24 08:25 7.5 MLS/HR Norepinephrine Bitartrate 250 ml @ 3.75 mls/hr Q24H IV 12/18/24 01:45 12/20/24 00:01 30 MLS/HR Meropenem 50 ml @ 17 mls/hr Q8HR IV 12/18/24 22:00 12/23/24 05:30 17 MLS/HR Vancomycin HCl 0 ml @ 0 mls/hr UD IV 12/18/24 15:45 Enoxaparin Sodium 40 mg DAILY SC 12/19/24 10:00 12/22/24 09:55 40 MG Amino Acids 0 ml @ 0 mls/hr PER PHARMACY IV 12/20/24 13:00 Diagnostic Test (Pha) 1 strip Q6HR 12/20/24 18:00 12/23/24 05:31 1 STRIP Insulin Human Regular FOLLOW SLIDING SCALE Q6HR SC 12/20/24 18:00 Dextrose 50 ml UD IV 12/20/24 14:15 12/20/24 17:47 50 ML Amino Acids/ Electrolytes/ Dextrose 1,000 ml @ 41 mls/hr DAILY@2200 IV 12/20/24 22:00 12/22/24 22:24 41 MLS/HR Polyethylene Glycol 17 gm DAILY PO 12/22/24 10:00 12/22/24 09:55 17 GM Metoclopramide HCl 5 mg Q8HR IV 12/22/24 22:00 12/23/24 05:30 5 MG Acetaminophen 650 mg Q6HP PRN MA 12/22/24 21:00 12/22/24 21:06 650 MG objective Gen.: Patient lying in bed in medical ICU. Sedated, intubated on mechanical ventilator. Head: Normocephalic, atraumatic. Eyes: PERRLA. Ears: Normal external anatomy. Throat: Endotracheal tube and orogastric tube in place. Neck: Supple, trachea midline. Chest: Transmitted breath sounds bilaterally. Decreased air entry bilaterally. No wheezing. Bibasilar crackles. Cardiovascular: Positive S1, positive S2. Regular rate and rhythm. Abdomen: Positive bowel sounds in all 4 quadrants. Soft, nontender, nondistended. : Navarrete in place. Normal external genitalia. Rectal: Deferred. Skin: Warm, dry. Intact. Extremities: 2+ radial pulses bilaterally. No lower extremity edema. Neuro: Sedated. laboratory and microbiology Laboratory Tests 12/23/24 03:30 Test 12/23/24 03:30 Range/Units Serum Glucose 102 74-106 mg/dL Assessment/Plan Impression: Acute hypoxic respiratory failure On mechanical ventilator Acute metabolic encephalopathy Septic shock Ascites Plan: s/p intubation on mechanical ventilator. Chest x-ray reviewed; multifocal opacities. Devices in place. ABG reviewed, notable for alkalemia. On AC mode; RR 20, VT 500, PEEP 5, FiO2 30% Titrate FIO2 to keep O2 saturation above 90%. VAP bundle. Daily ABG and CXR while intubated Sedate for ventilator synchrony- on Versed Patient with no bowel movement. Follow up GI recs Continue antibiotics. F/u cultures. Blood cx show no growth at 72 hours. IV fluids with LR at 75 ml/hr. Pressors as necessary for hemodynamic support. Titrate to keep MAP greater than 65 mmHg. Monitor renal function Monitor electrolytes. Supplement as necessary. Monitor ins and outs. Maintain euvolemia. TPN for nutritional support GI prophylaxis. DVT prophylaxis. Prognosis: Poor given patient's multiple co-morbidities. Condition: Critical Rest of plan per hospitalist and other consultants. A total of 35 minutes of critical care time was spent reviewing the patient record, examining the patient, making a diagnostic and therapeutic plan, discussing this plan with the medical personnel, following up on diagnostic studies and following the patient for clinical stability excluding any and all procedures. At least 50% of this time was spent in direct, [id number] contact. Thank you, Dr. Brennan, for allowing me to participate in this patient's care. Further recommendations will depend on the patient's clinical course. Please do not hesitate to contact me if you have any questions or concerns. This medical document was created using an electronic medical record system with [email or web address] dictation system. Although these documentations are being carefully reviewed, there may still be some phonetic and typographical changes. The errors are purely typographical, due to imperfection on the software program, and do not reflect any compromise in the patient's medical care. Dietary Evaluation Review Comments: 1. TF: Vital AF@50ml/hr (90g protein, 1440kcal 973 free water) meeting Protein needs 83%, energy needs 80%. 2. TPN per pharmacy meeting 75% of his needs if TF not feasible or NPO>7 days. 3. Diet as tolerated per [employer]ES SPECIAL AGENT eval when off Vent Expected Outcomes/Goals: Preventing catabolism Plan discussed with: Other (AISHA Amado) Critical Care Time(min): 35 QUINN LANDON MD Dec 23, 2024 08:48
--- NOTE | 2024-12-23 09:49 | DVHPN2 ---
Assessment/Plan Assessment/Plan ICU note 44 M with epilepsy and chronic pain admitted for abdominal pain, agitated and restless, worsening resp status leads to intubation, seen today, still no BM. resp alkalosis, vent adjusted. repeat gas. hypok repleted. physical exam intubated, sedated on mechanical vent PERRLA MMM mechanical breath sounds s1 s2 tachy abdomen slightly tense anasarca labs ekg imaging reviewed assessment and plan acute metabolic encephalopathy epilepsy septic shock UTI? pNA? acute hypoxic rf req mechanical vent ascites severe constipation gastroparesis esophageal varices? gout chronic pain hypokalemia c/w mechanical vent, dec rate to 16 c/w pressor maintain MAP >65 c/w vanc and cadence MiraLAX, enema reglan gastrografin diurese to goal net neg stop ivfluid start methylnaltrexone diet NPO dvt ppx lovenox gi ppx protonix full code condition critical prognosis poor 45 minutes critical care time rendered Plan discussed with: Other My Orders Orders - BELLA PIPER MD Procedure Category Date Status Time Ventilator Orders RT 12/22/24 Transmitted 12:04 Small Bowel Series-W XY 12/23/24 Logged Gastrogra 10:00 Metoclopramide PHA 12/22/24 In Process Injection (Reglan 22:00 Ventilator Orders RT 12/23/24 Verified 09:40 Abg W/ Co-Ox RT 12/23/24 Verified 12:00 Date of Service: Dec 23, 2024 Billing Provider: BELLA PIPER MD Common Visit Codes: [id number] CARE 30-74 MIN BELLA PIPER MD Dec 23, 2024 09:49
[2024-12-23] MEDS ORDERED: POTASSIUM CHLORIDE 60 MEQ, LIDOCAINE 1% (LOCAL ANESTH.) 6 ML in SODIUM CHL 0.9% 500 ML IV ONE (10:00)
[2024-12-23] MEDS: POTASSIUM CHL 20MEQ/100ML 100 ML IV SCH ×2 (10:10→19:50)
[2024-12-23] MEDS: POTASSIUM CHL 20MEQ/100ML 300 ML IV ONE (10:11)
[2024-12-23 12:05] LABS: Base Excess 2.0 mmol/L (-2.0-3.0)
--- NOTE | 2024-12-23 14:04 | DVHPN2 ---
Progress Note - Dictate Date Seen: Dec 23, 2024 Has the PT tested + for MRSA If YES, has PT been informed?: No Medical Necessity Reason Pt with a Central, PICC or Fol: Yes The following are medically ne: Navarrete Catheter Reason for navarrete catheter: Strict I&O Subjective Patient is having no bowel movements and copious gastric retention NG-tube had drainage of 500 cc Patient is apparently getting Gastrografin enema tomorrow hence not able to give a Gastrografin through the NG tube because of the retention No bleeding Potassium is still very low and needs aggressive correction Magnesium slightly better but we will recommend still some more supplements if possible vital signs Vital Sign Date Time Temp Pulse Resp B/P (MAP) Pulse Ox O2 Delivery O2 Flow Rate FiO2 12/23/24 13:00 130/76 12/23/24 13:00 100.2 90 19 99 212.4 12/23/24 12:30 Mechanical Ventilator+ 30 30 Total Intake and Output 12/22/24 12/22/24 12/23/24 14:59 22:59 06:59 Intake Total 1268.80 ml 668.04 ml 662.2 ml Output Total 825 ml 3100 ml Balance 1268.80 ml -156.96 ml -2437.8 ml medications Current Medications Medications Dose Ordered Sig/Sherron Route Start Time Stop Time Status Last Admin Dose Admin Pantoprazole Sodium 40 mg DAILY IV 12/18/24 10:00 12/23/24 10:10 40 MG Sodium Chloride 10 ml Q8HR IV 12/17/24 22:00 12/23/24 05:31 10 ML Midazolam HCl 50 ml @ 1 mls/hr Q24H IV 12/17/24 17:00 12/23/24 12:43 8 MLS/HR Valproate Sodium 250 mg/Sodium Chloride 52.5 ml @ 52.5 mls/hr BID IV 12/17/24 22:00 12/23/24 10:10 52.5 MLS/HR Propofol 100 ml @ 2.37 mls/hr Q24H IV 12/17/24 18:15 12/23/24 08:23 23.7 MLS/HR Fentanyl Citrate 250 ml @ 2.5 mls/hr Q24H IV 12/17/24 21:15 12/23/24 08:25 7.5 MLS/HR Norepinephrine Bitartrate 250 ml @ 3.75 mls/hr Q24H IV 12/18/24 01:45 12/20/24 00:01 30 MLS/HR Meropenem 50 ml @ 17 mls/hr Q8HR IV 12/18/24 22:00 12/23/24 05:30 17 MLS/HR Vancomycin HCl 0 ml @ 0 mls/hr UD IV 12/18/24 15:45 Enoxaparin Sodium 40 mg DAILY SC 12/19/24 10:00 12/23/24 10:11 40 MG Amino Acids 0 ml @ 0 mls/hr PER PHARMACY IV 12/20/24 13:00 Diagnostic Test (Pha) 1 strip Q6HR 12/20/24 18:00 12/23/24 12:16 1 STRIP Insulin Human Regular FOLLOW SLIDING SCALE Q6HR SC 12/20/24 18:00 Dextrose 50 ml UD IV 12/20/24 14:15 12/20/24 17:47 50 ML Amino Acids/ Electrolytes/ Dextrose 1,000 ml @ 41 mls/hr DAILY@2200 IV 12/20/24 22:00 12/22/24 22:24 41 MLS/HR Polyethylene Glycol 17 gm DAILY PO 12/22/24 10:00 12/22/24 09:55 17 GM Metoclopramide HCl 5 mg Q8HR IV 12/22/24 22:00 12/23/24 05:30 5 MG Acetaminophen 650 mg Q6HP PRN [place] 12/22/24 21:00 12/22/24 21:06 650 MG Potassium Chloride 100 ml @ 50 mls/hr Q2H IV 12/23/24 10:00 12/23/24 15:59 12/23/24 12:14 50 MLS/HR objective Abdomen is mildly distended but no rigidity no guarding no masses Potassium is low laboratory and microbiology Laboratory Tests 12/23/24 03:30 Test 12/23/24 03:30 Range/Units Serum Glucose 102 74-106 mg/dL Assessment/Plan 54-year-old male with a history of abdominal pain sharp radiating to the upper abdomen as well as lower abdomen with nausea and constipation patient had history of gout and seizures patient was intubated because of agitation etc. Patient is intubated tenderness in the ICU but has been having problems with gastric stasis ileus as well as colonic distention with some colonic ileus and colon mild colitis nonspecific Patient has been tried on metoclopramide stool softeners lactulose etc. for bowel movements apparently had no BMs Scan showed some ileus as well as some mild colitis but no evidence of any Marilin syndrome or other pathology Clinical impression Possible ileus, gastroparesis and even colonic ileus with electrolytes imbalance and metabolic encephalopathy No evidence of Marilin's syndrome[pseudo- obstruction of colon] Recommend correct the potassium and magnesium as much aggressively as possible Continue the enemas and MiraLax Recommend small bowel series with Gastrografin and if not possible or ineffective Gastrografin enema Thank you Dr. Forbes Dietary Evaluation Review Comments: 1. TF: Vital AF@50ml/hr (90g protein, 1440kcal 973 free water) meeting Protein needs 83%, energy needs 80%. 2. TPN per pharmacy meeting 75% of his needs if TF not feasible or NPO>7 days. 3. Diet as tolerated per DOUGH MIXING MACHINE OPERATOR eval when off Vent Expected Outcomes/Goals: Preventing catabolism Plan discussed with: Other LATOYA FORBES MD Dec 23, 2024 14:04
[2024-12-23 18:47] LABS: Chloride 104 mmol/L (98-107); Sodium 140 mmol/L (136-145)
[2024-12-23 18:48] LABS: Anion Gap 7 (5-15); Carbon Dioxide 29 mmol/L (20-31)
[2024-12-23 18:49] LABS: Calcium 8.5 mg/dL (8.7-10.4); Potassium 3.3 mmol/L (3.5-5.1)
[2024-12-23 18:54] LABS: BUN/Creatinine Ratio 31.9 (10.0-20.0); Blood Urea Nitrogen 15 mg/dL (9-23); Glucose 93 mg/dL (74-106)
[2024-12-23] MEDS: VANCOMYCIN 1.25GM/250ML 250 ML IV SCH (20:18)
--- NOTE | 2024-12-23 23:27 | DVHPN2 ---
Progress Note - Dictate Date Seen: Dec 23, 2024 Has the PT tested + for MRSA If YES, has PT been informed?: No Medical Necessity Reason Pt with a Central, PICC or Fol: Yes The following are medically ne: Navarrete Catheter Reason for navarrete catheter: Strict I&O Subjective Patient seen and examined at bedside. Sedated, intubated on mechanical ventilator. Overnight events reviewed. vital signs Vital Sign Date Time Temp Pulse Resp B/P (MAP) Pulse Ox O2 Delivery O2 Flow Rate FiO2 12/23/24 23:02 128/80 12/23/24 22:58 100.4 12/23/24 22:50 96 20 99 30 12/23/24 22:00 Mechanical Ventilator+ Total Intake and Output 12/22/24 12/22/24 12/23/24 15:00 23:00 07:00 Intake Total 1210.80 ml 661.49 ml 672.6 ml Output Total 825 ml 3100 ml Balance 1210.80 ml -163.51 ml -2427.4 ml medications Current Medications Medications Dose Ordered Sig/Sherron Route Start Time Stop Time Status Last Admin Dose Admin Pantoprazole Sodium 40 mg DAILY IV 12/18/24 10:00 12/23/24 10:10 40 MG Sodium Chloride 10 ml Q8HR IV 12/17/24 22:00 12/23/24 22:07 10 ML Midazolam HCl 50 ml @ 1 mls/hr Q24H IV 12/17/24 17:00 12/23/24 17:33 8 MLS/HR Valproate Sodium 250 mg/Sodium Chloride 52.5 ml @ 52.5 mls/hr BID IV 12/17/24 22:00 12/23/24 22:05 52.5 MLS/HR Propofol 100 ml @ 2.37 mls/hr Q24H IV 12/17/24 18:15 12/23/24 21:28 23.7 MLS/HR Fentanyl Citrate 250 ml @ 2.5 mls/hr Q24H IV 12/17/24 21:15 12/23/24 08:25 7.5 MLS/HR Norepinephrine Bitartrate 250 ml @ 3.75 mls/hr Q24H IV 12/18/24 01:45 12/20/24 00:01 30 MLS/HR Meropenem 50 ml @ 17 mls/hr Q8HR IV 12/18/24 22:00 12/23/24 22:05 17 MLS/HR Vancomycin HCl 0 ml @ 0 mls/hr UD IV 12/18/24 15:45 Enoxaparin Sodium 40 mg DAILY SC 12/19/24 10:00 12/23/24 10:11 40 MG Amino Acids 0 ml @ 0 mls/hr PER PHARMACY IV 12/20/24 13:00 Diagnostic Test (Pha) 1 strip Q6HR 12/20/24 18:00 12/23/24 17:33 1 STRIP Insulin Human Regular FOLLOW SLIDING SCALE Q6HR SC 12/20/24 18:00 Dextrose 50 ml UD IV 12/20/24 14:15 12/20/24 17:47 50 ML Amino Acids/ Electrolytes/ Dextrose 1,000 ml @ 41 mls/hr DAILY@2200 IV 12/20/24 22:00 12/23/24 22:06 41 MLS/HR Polyethylene Glycol 17 gm DAILY PO 12/22/24 10:00 12/22/24 09:55 17 GM Metoclopramide HCl 5 mg Q8HR IV 12/22/24 22:00 12/23/24 22:06 5 MG Acetaminophen 650 mg Q6HP PRN [place] 12/22/24 21:00 12/23/24 22:58 650 MG Vancomycin HCl 250 ml @ 200 mls/hr Q12H IV 12/23/24 20:00 12/23/24 20:18 200 MLS/HR Potassium Chloride 100 ml @ 50 mls/hr Q2H IV 12/23/24 20:00 12/23/24 23:59 12/23/24 22:06 50 MLS/HR objective Gen.: Patient lying in bed in medical ICU. Sedated, intubated on mechanical ventilator. Head: Normocephalic, atraumatic. Eyes: PERRLA. Ears: Normal external anatomy. Throat: Endotracheal tube and orogastric tube in place. Neck: Supple, trachea midline. Chest: Transmitted breath sounds bilaterally. Decreased air entry bilaterally. No wheezing. Bibasilar crackles. Cardiovascular: Positive S1, positive S2. Regular rate and rhythm. Abdomen: Positive bowel sounds in all 4 quadrants. Soft, nontender, nondistended. : Navarrete in place. Normal external genitalia. Rectal: Deferred. Skin: Warm, dry. Intact. Extremities: 2+ radial pulses bilaterally. No lower extremity edema. Neuro: Sedated. laboratory and microbiology Laboratory Tests 12/23/24 18:30 12/23/24 03:30 Test 12/23/24 18:30 Range/Units Serum Glucose 93 74-106 mg/dL Assessment/Plan Impression: Acute hypoxic respiratory failure On mechanical ventilator Acute metabolic encephalopathy Septic shock Ascites Events: Remains on vent support On AC mode; RR 20-->16, VT 500-->470, PEEP 5, FiO2 30% Taper FiO2 as tolerated Sedated on Propofol, Versed, Fentanyl ABG reviewed, notable for alkalemia Continue antibiotics. Continue bronchodilators. Monitor renal function Monitor electrolytes. Supplement as necessary. Goal K of 4.0, goal mag of 2.0. Monitor ins and outs. GI recommendations appreciated. Labs and imaging reviewed. Rest of plan as noted below. Plan: s/p intubation on mechanical ventilator. On AC mode; RR 16, VT 470, PEEP 5, FiO2 30% Titrate FIO2 to keep O2 saturation above 90%. VAP bundle. Daily ABG and CXR while intubated Sedate for ventilator synchrony Patient with no bowel movement. Follow up GI recs Continue antibiotics. F/u cultures. Blood cx show no growth at 72 hours. IV fluids with LR at 75 ml/hr. Pressors as necessary for hemodynamic support. Titrate to keep MAP greater than 65 mmHg. Monitor renal function Monitor electrolytes. Supplement as necessary. Monitor ins and outs. Maintain euvolemia. TPN for nutritional support GI prophylaxis. DVT prophylaxis. Prognosis: Poor given patient's multiple co-morbidities. Condition: Critical Rest of plan per hospitalist and other consultants. A total of 35 minutes of critical care time was spent reviewing the patient record, examining the patient, making a diagnostic and therapeutic plan, discussing this plan with the medical personnel, following up on diagnostic studies and following the patient for clinical stability excluding any and all procedures. At least 50% of this time was spent in direct, [id number] contact. Thank you, Dr. Brennan, for allowing me to participate in this patient's care. Further recommendations will depend on the patient's clinical course. Please do not hesitate to contact me if you have any questions or concerns. This medical document was created using an electronic medical record system with [employer] system. Although these documentations are being carefully reviewed, there may still be some phonetic and typographical changes. The errors are purely typographical, due to imperfection on the software program, and do not reflect any compromise in the patient's medical care. Dietary Evaluation Review Comments: 1. TF: Vital AF@50ml/hr (90g protein, 1440kcal 973 free water) meeting Protein needs 83%, energy needs 80%. 2. TPN per pharmacy meeting 75% of his needs if TF not feasible or NPO>7 days. 3. Diet as tolerated per ELECTRICAL PROSPECTING ENGINEER eval when off Vent Expected Outcomes/Goals: Preventing catabolism Plan discussed with: Other (AISHA Ellis) Critical Care Time(min): 35 QUINN LANDON MD Dec 23, 2024 23:27
[2024-12-24] VITALS (106 sets, daily range): BP systolic 98–149; BP diastolic 50–94; PULSE 86–121; RESP 12–29; TEMP 97–100.8; O2SAT 94–100
[2024-12-24 04:23] LABS: Alkaline Phosphatase 57 U/L (46-116); Anion Gap 9 (5-15); BUN/Creatinine Ratio 35.7 (10.0-20.0); Bilirubin, Total 0.5 mg/dL (0.2-1.0); Blood Urea Nitrogen 15 mg/dL (9-23); Carbon Dioxide 27 mmol/L (20-31); Chloride 103 mmol/L (98-107); Glucose 86 mg/dL (74-106); Magnesium 2.0 mg/dL (1.6-2.6); Sodium 139 mmol/L (136-145)
[2024-12-24 04:41] LABS: Alanine Aminotransferase < 9 U/L (7-40); Albumin 2.8 g/dL (3.2-4.8); Calcium 7.9 mg/dL (8.7-10.4); Potassium 3.3 mmol/L (3.5-5.1); Total Protein 4.9 g/dL (5.7-8.2)
--- NOTE | 2024-12-24 05:00 | DVH ---
CHEST RADIOGRAPH Indication: INTUBATED Technique: Single frontal view of the chest was obtained COMPARISON: XY CHEST XRAY 1 VIEW on DOS: 12/22/24, XY CHEST XRAY 1 VIEW on DOS: 12/21/24, XY CHEST PORTAB LE on DOS: 12/20/24, XY CHEST XRAY 1 VIEW on DOS: 12/19/24, XY CHEST PORTABLE on DOS: 12/18/24, XY CHEST XR AY 1 VIEW on DOS: 12/22/24 FINDINGS: Lines and Tubes: Endotracheal tube, enteric catheter and right central venous catheter in satisfactor y position Lungs: Multifocal airspace disease Pleura: No effusion. No pneumothorax. Cardiomediastinal contours: Unremarkable Bones: Unremarkable IMPRESSION: Lines and tubes in satisfactory position. No significant interval change.
[2024-12-24 06:46] LABS: Hematocrit 37.9 % (41.0-53.0); Hemoglobin 12.8 g/dL (13.5-17.5); Mean Corpuscular Hemoglobin 30.6 pg (28.0-32.0); Mean Corpuscular Volume 90.5 fL (80.0-100.0)
[2024-12-24] MEDS: POTASSIUM CHL 20MEQ/100ML 100 ML IV SCH ×2 (08:51→17:45)
[2024-12-24 09:08] LABS: Total Cells Counted 100.0 (100)
[2024-12-24] MEDS: GASTROGRAFIN 120 ML SOL ONE (09:48)
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
[2024-12-24] MEDS ORDERED: POTASSIUM CHL 20MEQ/100ML 100 ML IV SCH (14:45)
[2024-12-24] MEDS: FUROSEMIDE 40 MG/4 ML VIAL IV ONE (14:49)
--- NOTE | 2024-12-24 20:14 | DVH ---
Procedure: XY SMALL BOWEL SERIES-W GASTROGRA Exam Date: 12/24/2024 09:47 AM Reason for study/Clinical History: ILEUS VS CONSTIPATION Comparison Study: None Technique: Single contrast small bowel series performed. Findings: Initial curriculum consultant view of the abdomen and pelvis appears demonstrates no acute process. Contrast is identified within the colon by 2 HOURS . This represents a normal small bowel transit ti me. Small bowel loops are normal in size. Normal mucosal pattern. No evidence of small bowel obstructi on, stricture, or mucosal abnormality. The terminal ileum is well visualized and is unremarkable. IMPRESSION: Normal small bowel series. Large stool burden. END IMPRESSION:
--- NOTE | 2024-12-24 21:40 | DVHPN2 ---
Progress Note - Dictate Date Seen: Dec 24, 2024 Has the PT tested + for MRSA If YES, has PT been informed?: No Medical Necessity Reason Pt with a Central, PICC or Fol: Yes The following are medically ne: Navarrete Catheter Reason for navarrete catheter: Strict I&O Subjective 44-year-old male admitted with refractory abdominal pain and suspected colitis Patient has a history of chronic constipation related to narcotic use Patient is still intubated sedated and he is being weaned off pressors currently on IV fentanyl There was no bowel movement and no GI bleeding reported Abdomen continues to be distended and he has high gastric residuals with no response to IV Reglan Patient is undergoing small-bowel series today Patient has failed trial of soapsuds enemas He has leukocytosis is worsening vital signs Vital Sign Date Time Temp Pulse Resp B/P (MAP) Pulse Ox O2 Delivery O2 Flow Rate FiO2 12/24/24 21:33 114/65 12/24/24 21:15 97.5 90 17 99 207.5 12/24/24 20:36 30 12/24/24 20:00 Mechanical Ventilator Total Intake and Output 12/23/24 12/23/24 12/24/24 15:00 23:00 07:00 Intake Total 1081.6 ml 976.1 ml 961.22 ml Output Total 1250 ml 1450 ml Balance 1081.6 ml -273.9 ml -488.78 ml medications Current Medications Medications Dose Ordered Sig/Sherron Route Start Time Stop Time Status Last Admin Dose Admin Pantoprazole Sodium 40 mg DAILY IV 12/18/24 10:00 12/24/24 08:46 40 MG Sodium Chloride 10 ml Q8HR IV 12/17/24 22:00 12/24/24 14:25 10 ML Midazolam HCl 50 ml @ 1 mls/hr Q24H IV 12/17/24 17:00 12/24/24 21:33 12 MLS/HR Valproate Sodium 250 mg/Sodium Chloride 52.5 ml @ 52.5 mls/hr BID IV 12/17/24 22:00 12/24/24 21:34 52.5 MLS/HR Propofol 100 ml @ 2.37 mls/hr Q24H IV 12/17/24 18:15 12/24/24 21:33 23.7 MLS/HR Fentanyl Citrate 250 ml @ 2.5 mls/hr Q24H IV 12/17/24 21:15 12/24/24 21:32 30 MLS/HR Norepinephrine Bitartrate 250 ml @ 3.75 mls/hr Q24H IV 12/18/24 01:45 12/20/24 00:01 30 MLS/HR Meropenem 50 ml @ 17 mls/hr Q8HR IV 12/18/24 22:00 12/24/24 14:30 17 MLS/HR Vancomycin HCl 0 ml @ 0 mls/hr UD IV 12/18/24 15:45 Enoxaparin Sodium 40 mg DAILY SC 12/19/24 10:00 12/24/24 08:49 40 MG Amino Acids 0 ml @ 0 mls/hr PER PHARMACY IV 12/20/24 13:00 Diagnostic Test (Pha) 1 strip Q6HR 12/20/24 18:00 12/24/24 18:21 1 STRIP Insulin Human Regular FOLLOW SLIDING SCALE Q6HR SC 12/20/24 18:00 Dextrose 50 ml UD IV 12/20/24 14:15 12/20/24 17:47 50 ML Amino Acids/ Electrolytes/ Dextrose 1,000 ml @ 41 mls/hr DAILY@2200 IV 12/20/24 22:00 12/24/24 21:34 41 MLS/HR Polyethylene Glycol 17 gm DAILY PO 12/22/24 10:00 12/22/24 09:55 17 GM Metoclopramide HCl 5 mg Q8HR IV 12/22/24 22:00 12/24/24 14:26 5 MG Acetaminophen 650 mg Q6HP PRN MS 12/22/24 21:00 12/24/24 06:15 650 MG Vancomycin HCl 250 ml @ 200 mls/hr Q12H IV 12/23/24 20:00 12/24/24 20:07 200 MLS/HR Potassium Chloride 100 ml @ 50 mls/hr Q2H IV 12/24/24 17:45 12/24/24 21:44 12/24/24 20:07 50 MLS/HR objective General Appearance: Other (Fully intubated) HEENT: Atraumatic, PERRLA, EOMI, Mucous membr. moist/pink Respiratory: Normal air movement, Other (On ventilator) Cardiovascular: Regular rate, Normal S1, Normal S2, No murmurs Abdominal: Normal bowel sounds, Soft, No tenderness, No hepatospenomegaly, No masses Extremities: No clubbing, No cyanosis, No edema, Normal pulses, No tenderness/swelling Skin: No rashes, No breakdown, No significant lesion Neuro: Normal speech, Normal tone, Sensation intact, Cranial nerves 3-12 NL, Reflexes 2+, Other (Generalized weakness) Psych/Mental Status: Mood NL, Other (Altered mental status) Rectal exam, normal tone no obstipation rectal mass or obstruction noted and no stool in the rectum laboratory and microbiology Laboratory Tests 12/24/24 03:00 Test 12/24/24 03:00 Range/Units Serum Glucose 86 74-106 mg/dL Small-bowel follow-through was negative Problems(with codes): (1) Constipation (2) Sepsis, unspecified organism (3) Generalized weakness (4) Acute abdominal pain (5) Leukocytosis (6) Abnormal finding on GI tract imaging (7) Leukocytosis, unspecified (8) Abdominal pain (9) Colitis Prognosis Plan Continue to monitor bowel activity and NG tube output NG tube connected to low intermittent suction Patient has no small-bowel obstruction but large colonic stool Patient will be given another trial of fleets enema and if there was no bowel activity consider starting him on some magnesium citrate or GoLYTELY Continue broad-spectrum antibiotics and repeat KUB in a.m. Dietary Evaluation Review Comments: 1. TF: Vital AF@50ml/hr (90g protein, 1440kcal 973 free water) meeting Protein needs 83%, energy needs 80%. 2. TPN per pharmacy meeting 75% of his needs if TF not feasible or NPO>7 days. 3. Diet as tolerated per FEATHER MIXER eval when off Vent Expected Outcomes/Goals: Preventing catabolism Plan discussed with: Other (ICU Nurse and Dr Jameson) MAO COLEMAN MD Dec 24, 2024 21:40
[2024-12-24] MEDS: FLEET ENEMA(ADULT) 135 ML PR ONE (21:49)
[2024-12-25] VITALS (105 sets, daily range): BP systolic 98–136; BP diastolic 51–83; PULSE 85–107; RESP 14–22; TEMP 97.7–99.7; O2SAT 91–100
[2024-12-25 04:17] LABS: Alkaline Phosphatase 80 U/L (46-116); Anion Gap 9 (5-15); BUN/Creatinine Ratio 35.0 (10.0-20.0); Blood Urea Nitrogen 14 mg/dL (9-23); Carbon Dioxide 28 mmol/L (20-31); Chloride 102 mmol/L (98-107); Glucose 99 mg/dL (74-106); Magnesium 1.9 mg/dL (1.6-2.6); Sodium 139 mmol/L (136-145)
[2024-12-25 04:18] LABS: Bilirubin, Total 0.6 mg/dL (0.2-1.0); Hematocrit 37.4 % (41.0-53.0); Hemoglobin 12.5 g/dL (13.5-17.5); Mean Corpuscular Hemoglobin 30.5 pg (28.0-32.0); Mean Corpuscular Volume 91.3 fL (80.0-100.0)
[2024-12-25 04:22] LABS: Alanine Aminotransferase < 9 U/L (7-40); Albumin 3.0 g/dL (3.2-4.8); Calcium 8.1 mg/dL (8.7-10.4); Potassium 3.0 mmol/L (3.5-5.1); Total Protein 5.3 g/dL (5.7-8.2)
--- NOTE | 2024-12-25 04:36 | DVH ---
CHEST RADIOGRAPH Indication: INTUBATED Technique: Single frontal view of the chest was obtained COMPARISON: XY CHEST PORTABLE on DOS: 12/24/24, XY CHEST XRAY 1 VIEW on DOS: 12/22/24, XY CHEST XRAY 1 EW on DOS: 12/21/24, XY CHEST PORTABLE on DOS: 12/20/24, XY CHEST XRAY 1 VIEW on DOS: 12/19/24 FINDINGS: Lines and Tubes: Unchanged. Lungs: Stable appearing multifocal bilateral pulmonary airspace disease with small bilateral pleural effusions not excluded. No pneumothorax. Cardiomediastinal contours: Unremarkable Bones: Unremarkable IMPRESSION: 1. Stable multifocal bilateral pulmonary airspace disease. Small bilateral pleural effusions are not excluded. 2. Lines and tubes unchanged.
[2024-12-25 05:30] LABS: Total Cells Counted 100.0 (100)
[2024-12-25] MEDS: POTASSIUM CHL 20MEQ/100ML 100 ML IV SCH (06:53)
[2024-12-25 08:30] LABS: Base Excess 1.4 mmol/L (-2.0-3.0)
--- NOTE | 2024-12-25 09:00 | DVH ---
Date: 12/25/2024 08:05 AM Examination: XY KUB ABDOMEN SINGLE VIEW History: ileus Comparison: XY KUB ABDOMEN SINGLE VIEW on DOS: 12/22/24, XY KUB ABDOMEN SINGLE VIEW on DOS: 12/20/24, XY KUB ABDOMEN SINGLE VIEW on DOS: 12/18/24 TECHNIQUE: Frontal views of the abdomen was obtained. FINDINGS: Bowel gas pattern is unremarkable. Enteric tube tip projects over the expected location of the stomac h. Contrast is visualized in the colon. Martinez catheter projects over the bladder. The lung bases are unremarkable. No acute osseous abnormality identified. IMPRESSION: Contrast is visualized in the colon.
--- NOTE | 2024-12-25 16:12 | DVHPN2 ---
Progress Note - Dictate Date Seen: Dec 25, 2024 Has the PT tested + for MRSA If YES, has PT been informed?: No Medical Necessity Reason Pt with a Central, PICC or Fol: Yes The following are medically ne: Navarrete Catheter Reason for navarrete catheter: Strict I&O Subjective 44-year-old male admitted with refractory abdominal pain and suspected colitis Patient has a history of chronic constipation related to narcotic use Patient is still intubated sedated and has been weaned off pressors currently on IV fentanyl One small bowel movement today and no GI bleeding reported Abdominal x-ray shows contrast in the colon and there appears to be possible more obstipation in the right colon Abdomen continues to be distended and he has high gastric residuals with no response to IV Reglan Leukocytosis improving vital signs Vital Sign Date Time Temp Pulse Resp B/P (MAP) Pulse Ox O2 Delivery O2 Flow Rate FiO2 12/25/24 16:04 100 16 117/71 (86) 96 30 12/25/24 14:00 Mechanical Ventilator+ 12/25/24 10:00 99.0 210.2 Total Intake and Output 12/24/24 12/24/24 12/25/24 15:00 23:00 07:00 Intake Total 1213.6 ml 1760.6 ml 921.6 ml Output Total 2300 ml 1180 ml Balance 1213.6 ml -539.4 ml -258.4 ml medications Current Medications Medications Dose Ordered Sig/Sherron Route Start Time Stop Time Status Last Admin Dose Admin Pantoprazole Sodium 40 mg DAILY IV 12/18/24 10:00 12/25/24 09:34 40 MG Sodium Chloride 10 ml Q8HR IV 12/17/24 22:00 12/25/24 14:40 10 ML Midazolam HCl 50 ml @ 1 mls/hr Q24H IV 12/17/24 17:00 12/25/24 13:22 12 MLS/HR Valproate Sodium 250 mg/Sodium Chloride 52.5 ml @ 52.5 mls/hr BID IV 12/17/24 22:00 12/25/24 09:40 52.5 MLS/HR Propofol 100 ml @ 2.37 mls/hr Q24H IV 12/17/24 18:15 12/25/24 13:23 23.7 MLS/HR Fentanyl Citrate 250 ml @ 2.5 mls/hr Q24H IV 12/17/24 21:15 12/25/24 13:22 27.5 MLS/HR Norepinephrine Bitartrate 250 ml @ 3.75 mls/hr Q24H IV 12/18/24 01:45 12/20/24 00:01 30 MLS/HR Meropenem 50 ml @ 17 mls/hr Q8HR IV 12/18/24 22:00 12/25/24 14:40 17 MLS/HR Vancomycin HCl 0 ml @ 0 mls/hr UD IV 12/18/24 15:45 Enoxaparin Sodium 40 mg DAILY SC 12/19/24 10:00 12/25/24 09:34 40 MG Amino Acids 0 ml @ 0 mls/hr PER PHARMACY IV 12/20/24 13:00 Diagnostic Test (Pha) 1 strip Q6HR 12/20/24 18:00 12/25/24 11:45 1 STRIP Insulin Human Regular FOLLOW SLIDING SCALE Q6HR SC 12/20/24 18:00 Dextrose 50 ml UD IV 12/20/24 14:15 12/20/24 17:47 50 ML Amino Acids/ Electrolytes/ Dextrose 1,000 ml @ 41 mls/hr DAILY@2200 IV 12/20/24 22:00 12/24/24 21:34 41 MLS/HR Polyethylene Glycol 17 gm DAILY PO 12/22/24 10:00 12/22/24 09:55 17 GM Metoclopramide HCl 5 mg Q8HR IV 12/22/24 22:00 12/25/24 14:38 5 MG Acetaminophen 650 mg Q6HP PRN MI 12/22/24 21:00 12/24/24 06:15 650 MG Vancomycin HCl 250 ml @ 200 mls/hr Q8H IV 12/25/24 17:00 objective General Appearance: Other (Fully intubated) HEENT: Atraumatic, PERRLA, EOMI, Mucous membr. moist/pink Respiratory: Normal air movement, Other (On ventilator) Cardiovascular: Regular rate, Normal S1, Normal S2, No murmurs Abdominal: Normal bowel sounds, Soft, No tenderness, No hepatospenomegaly, No masses Extremities: No clubbing, No cyanosis, No edema, Normal pulses, No tenderness/swelling Skin: No rashes, No breakdown, No significant lesion Neuro: Normal speech, Normal tone, Sensation intact, Cranial nerves 3-12 NL, Reflexes 2+, Other (Generalized weakness) Psych/Mental Status: Mood NL, Other (Altered mental status) Rectal exam, normal tone no obstipation rectal mass or obstruction noted and no stool in the rectum laboratory and microbiology Laboratory Tests 12/25/24 11:45 12/25/24 03:30 Test 12/25/24 03:30 Range/Units Serum Glucose 99 74-106 mg/dL SBFT IMPRESSION: Normal small bowel series. Large stool burden. Problems(with codes): (1) Constipation (2) Acute respiratory failure (3) Sepsis, unspecified organism (4) Generalized weakness (5) Acute abdominal pain (6) Leukocytosis (7) Abnormal finding on GI tract imaging Prognosis PLAN Continue to monitor gastric residuals and once these improved start enteral tube feedings Patient is going to get another soapsuds enema today Continue IV Reglan Monitor labs IV antibiotics No stool studies have been obtained This patient continues to have obstipation then we can give him a trial on IV physostigmine, pharmacy may have to order that The patient was found to have moderate ascites on recent CT, consider bedside ultrasound-guided paracentesis to help reviewing is distention Dietary Evaluation Review Comments: 1. TF: Vital AF@50ml/hr (90g protein, 1440kcal 973 free water) meeting Protein needs 83%, energy needs 80%. 2. TPN per pharmacy meeting 75% of his needs if TF not feasible or NPO>7 days. 3. Diet as tolerated per WAFER FABRICATION OPERATOR eval when off Vent Expected Outcomes/Goals: Preventing catabolism Plan discussed with: Other (Dr Jameson) MAO COLEMAN MD Dec 25, 2024 16:11
[2024-12-25] MEDS ORDERED: TPN PER PHARMACY 0 ML IV SCH (16:45)
[2024-12-25] MEDS: VANCOMYCIN 1.25GM/250ML 250 ML IV SCH (17:24)
[2024-12-25] MEDS: MAGNESIUM CITRATE SOLUTION 300 ML BTL PO ONE (17:49)
--- NOTE | 2024-12-25 18:08 | DVH ---
Technique: Real-time ultrasound imaging of the abdomen was performed with grayscale and color Doppler . Indication: ASCITES Comparison: US RIGHT LOWER QUAD on DOS: 12/18/24, CT abdomen from 12/20/2024 Findings: There is a moderate to large volume of ascites fluid which appears multiloculated/septated. Correlate for infection, malignancy, hemoperitoneum Impression: As above
--- NOTE | 2024-12-25 18:29 | DVH ---
Date: 12/25/2024 03:46 PM Examination: XY KUB ABDOMEN SINGLE VIEW History: DOBHOFF PLACEMENT Comparison: XY KUB ABDOMEN SINGLE VIEW on DOS: 12/25/24, XY KUB ABDOMEN SINGLE VIEW on DOS: 12/22/24, XY KUB ABDOMEN SINGLE VIEW on DOS: 12/20/24 TECHNIQUE: Frontal views of the abdomen was obtained. FINDINGS: Dobbhoff tube noted at the junction of 2nd and 3rd portion of the duodenum. Oral contrast noted throu ghout the colon. Bowel gas pattern is unremarkable. The lung bases are unremarkable. No acute osseous abnormality identified. IMPRESSION: 1. Nonobstructive bowel gas pattern. 2. Dobbhoff tube at the junction of 2nd and 3rd portion of the duodenum.
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
[2024-12-25] MEDS: AMINO ACID INFUSION IN D10W 1,000 ML IV SCH (22:04)
[2024-12-26] VITALS (108 sets, daily range): BP systolic 93–135; BP diastolic 39–93; PULSE 86–111; RESP 13–28; TEMP 97.7–99.7; O2SAT 94–100
[2024-12-26 03:36] LABS: Hemoglobin 11.6 g/dL (13.5-17.5); Nucleated Red Blood Cells % 0.0 %
[2024-12-26 03:39] LABS: Hematocrit 33.4 % (41.0-53.0); Mean Corpuscular Hemoglobin 31.0 pg (28.0-32.0); Mean Corpuscular Volume 89.5 fL (80.0-100.0)
[2024-12-26 03:49] LABS: Alkaline Phosphatase 81 U/L (46-116); Anion Gap 10 (5-15); BUN/Creatinine Ratio 31.7 (10.0-20.0); Bilirubin, Total 0.6 mg/dL (0.2-1.0); Blood Urea Nitrogen 13 mg/dL (9-23); Carbon Dioxide 28 mmol/L (20-31); Chloride 100 mmol/L (98-107); Glucose 102 mg/dL (74-106); Magnesium 2.1 mg/dL (1.6-2.6); Sodium 138 mmol/L (136-145)
[2024-12-26 03:54] LABS: Alanine Aminotransferase < 9 U/L (7-40); Albumin 3.0 g/dL (3.2-4.8); Calcium 8.1 mg/dL (8.7-10.4); Potassium 3.2 mmol/L (3.5-5.1); Total Protein 5.4 g/dL (5.7-8.2)
--- NOTE | 2024-12-26 04:26 | DVH ---
EXAM: XY CHEST XRAY 1 VIEW HISTORY: intubated COMPARISON: XY CHEST PORTABLE on DOS: 12/25/24, XY CHEST PORTABLE on DOS: 12/24/24, XY CHEST XRAY 1 VIEW on DOS: 12/22/24, XY CHEST XRAY 1 VIEW on DOS: 12/21/24, XY CHEST PORTABLE on DOS: 12/20/24 TECHNIQUE: Portable upright AP view of the chest was performed. FINDINGS: Endotracheal tube is re-identified with its tip 3.7 cm above the natalie. OG tube and right IJ central line are re-identified. Lung volumes are low. The right hemidiaphragm is mildly elevated. There ar e diffuse interstitial and hazy opacities throughout both lungs. Probable left pleural effusion conso lidation obscuring the left hemidiaphragm. No pneumothorax. The heart is not enlarged. IMPRESSION: 1. Mechanical ventilation with tubes and lines as above. 2. Diffuse bilateral interstitial and hazy infiltrates suggestive of CHF. 3. Left basilar effusion and consolidation which may be due to atelectasis or pneumonia.
[2024-12-26 07:42] LABS: Base Excess 1.5 mmol/L (-2.0-3.0)
[2024-12-26] MEDS: POTASSIUM CHL 20MEQ/100ML 100 ML IV SCH (09:14)
[2024-12-26] MEDS: GOLYTELY 4L KIT NG ONE (10:28)
[2024-12-26] MEDS ORDERED: MIDAZOLAM HCL 5 MG/ML-1ML VIAL ONE (14:14)
[2024-12-26] MEDS ORDERED: SODIUM CHLORIDE LOCK 10 ML ONE (14:14)
[2024-12-26] MEDS ORDERED: diphenhdrAMINE HCL 50 MG/1 ML VL ONE (14:15)
[2024-12-26] MEDS ORDERED: fentaNYL CITRATE 100 MCG/2 ML VL ONE (14:15)
--- NOTE | 2024-12-26 14:19 | DVHPN2 ---
Progress Note Date Seen: Dec 26, 2024 Has the PT tested + for MRSA If YES, has PT been informed?: No Medical Necessity Reason Pt with a Central, PICC or Fol: Yes The following are medically ne: Navarrete Catheter Reason for navarrete catheter: Strict I&O Objective vital signs Vital Sign Date Time Temp Pulse Resp B/P (MAP) Pulse Ox O2 Delivery O2 Flow Rate FiO2 12/26/24 14:00 19 100 Mechanical Ventilator+ 30 30 12/26/24 14:00 104 12/26/24 14:00 98.4 118/79 (92) 209.1 Total Intake and Output 12/25/24 12/25/24 12/26/24 15:00 23:00 07:00 Intake Total 935.1 ml 1195.1 ml 1237.6 ml Output Total 950 ml 1050 ml Balance 935.1 ml 245.1 ml 187.6 ml medications Current Medications Medications Dose Ordered Sig/Sherron Route Start Time Stop Time Status Last Admin Dose Admin Pantoprazole Sodium 40 mg DAILY IV 12/18/24 10:00 12/26/24 09:14 40 MG Sodium Chloride 10 ml Q8HR IV 12/17/24 22:00 12/26/24 05:46 10 ML Midazolam HCl 50 ml @ 1 mls/hr Q24H IV 12/17/24 17:00 12/26/24 11:47 15 MLS/HR Valproate Sodium 250 mg/Sodium Chloride 52.5 ml @ 52.5 mls/hr BID IV 12/17/24 22:00 12/26/24 09:22 52.5 MLS/HR Propofol 100 ml @ 2.37 mls/hr Q24H IV 12/17/24 18:15 12/26/24 13:43 23.7 MLS/HR Fentanyl Citrate 250 ml @ 2.5 mls/hr Q24H IV 12/17/24 21:15 12/26/24 08:57 22.5 MLS/HR Norepinephrine Bitartrate 250 ml @ 3.75 mls/hr Q24H IV 12/18/24 01:45 12/20/24 00:01 30 MLS/HR Meropenem 50 ml @ 17 mls/hr Q8HR IV 12/18/24 22:00 12/26/24 05:46 17 MLS/HR Vancomycin HCl 0 ml @ 0 mls/hr UD IV 12/18/24 15:45 Enoxaparin Sodium 40 mg DAILY SC 12/19/24 10:00 12/26/24 09:15 40 MG Diagnostic Test (Pha) 1 strip Q6HR 12/20/24 18:00 12/26/24 12:20 1 STRIP Insulin Human Regular FOLLOW SLIDING SCALE Q6HR SC 12/20/24 18:00 Dextrose 50 ml UD IV 12/20/24 14:15 12/20/24 17:47 50 ML Polyethylene Glycol 17 gm DAILY PO 12/22/24 10:00 12/22/24 09:55 17 GM Metoclopramide HCl 5 mg Q8HR IV 12/22/24 22:00 12/26/24 05:46 5 MG Acetaminophen 650 mg Q6HP PRN MI 12/22/24 21:00 12/24/24 06:15 650 MG Amino Acids 0 ml @ 0 mls/hr PER PHARMACY IV 12/25/24 16:45 Amino Acids/ Electrolytes/ Dextrose 1,000 ml @ 41 mls/hr DAILY@2200 IV 12/25/24 17:15 12/26/24 21:59 12/25/24 22:21 41 MLS/HR Potassium Chloride 100 ml @ 50 mls/hr Q2H IV 12/26/24 08:15 12/26/24 16:14 12/26/24 13:39 50 MLS/HR Sodium Chloride 40 meq/Potassium Chloride 40 meq/ Potassium Phosphate 11 meq/ Calcium Gluconate 2.3 meq/Magnesium Sulfate 8 meq/ Multivitamins 10 ml/Chromium/ Copper/Manganese/ Zinc 1 ml/Amino Acids/Dextrose/ Purified Water 1,450.4462 ml @ 60 mls/hr [id number] IV 12/26/24 22:00 12/27/24 21:59 Vancomycin HCl 300 ml @ 200 mls/hr Q8H IV 12/26/24 17:00 laboratory and microbiology Laboratory Tests 12/26/24 03:00 Test 12/26/24 03:00 Range/Units Serum Glucose 102 74-106 mg/dL Problem List/Assessment/Plan Problem List/Assessment/Plan 12/26/24 PATIENT EXAMINED WITH HIS MOTHER IN ATTENDANCE. ABDOMEN IS TENSELY DISTENDED AND FIRM, CT NOW INDICATES ASCITES. i HAVE DISCUSSED WITH Dr.N COLEMAN AND SHE WILL PROCEED WITH SIGMOIDOSCOPY/COLONOSCOPY . HAVE EXPLAINED TO HIS MOTHER HE MAY NEED AN OPERATION TO RESECT ISCHEMIC COLON AND GIVE HIM A COLOSTOMY. WILL PROCEED DEPENDING OF RESULTS OF Dr. Teo COLEMAN'S FINDINGS Plan discussed with: Other Dietary Evaluation Review Comments: 1. TF: Vital AF@50ml/hr (90g protein, 1440kcal 973 free water) meeting Protein needs 83%, energy needs 80%. 2. TPN per pharmacy meeting 75% of his needs if TF not feasible or NPO>7 days. 3. Diet as tolerated per MEDICAL SERVICE REPRESENTATIVE eval when off Vent Expected Outcomes/Goals: Preventing catabolism HUMPHREY RUBIO MD Dec 26, 2024 14:19
--- NOTE | 2024-12-26 15:51 | DVHOP2 ---
Operative Report DATE OF OPERATION: 12/26/24 PROCEDURE: Flexible sigmoidoscopy with decompression PREOPERATIVE INDICATION: The patient is a 44 -year-old male undergoing for colonic decompression with history of abdominal pain obstipation and ileus POSTOPERATIVE DIAGNOSES: 1. Patient had residual stool which was aspirated in the rectosigmoid 2. In the proximal sigmoid or at the junction of the sigmoid and descending colon there appeared to be an ischemic area and there was an area of a large fluid collection and 6 L of greenish brown liquid which was aspirated along with some stool. There is a possibility that the patient may have a previous area of spontaneous perforation and this fluid may have been aspirated possibly from the peritoneal cavity. The colonoscope was not advanced beyond this area PROCEDURE PERFORMED BY: Mao Bailey M.D. SCOPE: Olympus videocolonoscope. ASA CLASS: 3. PREOPERATIVE MEDICATIONS: Patient was previously intubated sedated PROCEDURE IN DETAIL: After obtaining an informed consent, the patient was placed on left lateral decubitus position. He was then sedated with the above medications. A rectal examination was performed that was normal. The colonoscope was then passed through the anus into the rectosigmoid . There was some liquid stool in the rectosigmoid that was aspirated easily At about 35 cm above the anal verge the scope entered an abnormal possibly ischemic area and there was a large fluid collection. I aspirated about 6 L of grayish greenish liquid fluid mixed with stool There was concern that there may have been a previous area of spontaneous rupture and the fluid that was aspirating was coming from the peritoneal cavity The colonoscope was not advanced beyond this area as it was not deemed safe.The colonoscope was then withdrawn. The patient tolerated the procedure well without difficulty. WITHDRAWAL TIME: Not applicable QUALITY OF THE PREP: Fred Bowel Prep score: Not applicable COMPLICATIONS : None SPECIMENS: None DISPOSITION: Continue to monitor in ICU Hemodynamically stable PLAN: 1. Keep NPO, IV fluid hydration 2. NG tube to low intermittent suction ; IV Abx 3. Surgical consult as the patient is likely going to need a exploratory laparotomy 4. Discussed with hospitalist team and with surgical consult MAO BAILEY MD Dec 26, 2024 15:51
[2024-12-26] MEDS: FUROSEMIDE 40 MG/4 ML VIAL IV ONE (16:12)
[2024-12-26] MEDS: VANCOMYCIN 1.5GM/300ML 300 ML IV SCH (17:58)
[2024-12-26 18:41] LABS: INR 1.04 (0.9-1.15); Partial Thromboplastin Time 24.7 SEC (24.5-34.5); Prothrombin Time 11.0 sec (9.3-11.8)
[2024-12-26] MEDS ORDERED: TPN PER PHARMACY IV NR (22:00)
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
[2024-12-27] VITALS (99 sets, daily range): BP systolic 89–148; BP diastolic 44–90; PULSE 86–140; RESP 14–24; TEMP 97.9–101.7; O2SAT 91–100
[2024-12-27 04:19] LABS: Alkaline Phosphatase 80 U/L (46-116); Anion Gap 10 (5-15); BUN/Creatinine Ratio 24.4 (10.0-20.0); Blood Urea Nitrogen 10 mg/dL (9-23); Carbon Dioxide 26 mmol/L (20-31); Chloride 101 mmol/L (98-107); Glucose 79 mg/dL (74-106); Magnesium 1.9 mg/dL (1.6-2.6); Sodium 137 mmol/L (136-145)
[2024-12-27 04:20] LABS: Bilirubin, Total 0.6 mg/dL (0.2-1.0)
[2024-12-27 04:30] LABS: Potassium 3.4 mmol/L (3.5-5.1)
[2024-12-27 04:31] LABS: Alanine Aminotransferase < 9 U/L (7-40); Albumin 2.7 g/dL (3.2-4.8); Calcium 8.5 mg/dL (8.7-10.4); Total Protein 4.8 g/dL (5.7-8.2)
[2024-12-27] MEDS: POTASSIUM CHL 20MEQ/100ML 100 ML IV SCH ×2 (06:23→13:15)
[2024-12-27 06:45] LABS: Base Excess 2.6 mmol/L (-2.0-3.0)
[2024-12-27] MEDS ORDERED: fentaNYL CITRATE 100 MCG/2 ML VL ONE ×2 (07:04→08:13)
[2024-12-27] MEDS ORDERED: ROCURONIUM 10MG/ML 10ML VIAL IV ONE (07:04)
[2024-12-27] MEDS ORDERED: HYDROmorphone HCL 2 MG/ML VL/or syr ONE (07:04)
--- NOTE | 2024-12-27 07:12 | DVH ---
EXAM: XY CHEST PORTABLE HISTORY: et tube placement COMPARISON: XY CHEST XRAY 1 VIEW on DOS: 12/26/24, XY CHEST PORTABLE on DOS: 12/25/24, XY CHEST PORTABLE on DOS: 12/24/24, XY CHEST XRAY 1 VIEW on DOS: 12/22/24, XY CHEST XRAY 1 VIEW on DOS: 12/21/24 TECHNIQUE: Portable AP view of the chest was performed. FINDINGS: Endotracheal tube is re-identified with its tip 4.8 cm above the natalie. OG tube and right IJ central line are re-identified. Lung volumes are low. There are bilateral mid to lower lung infiltrates and effusions, similar to that seen previously. There is mild elevation of the right hemidiaphragm. The re is right basilar atelectasis and/or scarring. No pneumothorax. The heart is not enlarged. IMPRESSION: 1. Mechanical ventilation with tubes and lines as above. 2. Bilateral lung base infiltrates and effusions, stable.
--- NOTE | 2024-12-27 07:42 | DVHPN2 ---
Progress Note Date Seen: Dec 27, 2024 Has the PT tested + for MRSA If YES, has PT been informed?: No Medical Necessity Reason Pt with a Central, PICC or Fol: Yes The following are medically ne: Navarrete Catheter Reason for navarrete catheter: Strict I&O Objective vital signs Vital Sign Date Time Temp Pulse Resp B/P (MAP) Pulse Ox O2 Delivery O2 Flow Rate FiO2 12/27/24 06:45 99.0 95 17 109/57 (74) 97 210.2 12/27/24 06:00 Mechanical Ventilator+ 30 30 Total Intake and Output 12/26/24 12/26/24 12/27/24 15:00 23:00 07:00 Intake Total 1295.1 ml 823.9 ml 710.9 ml Output Total 8850 ml 1450 ml Balance 1295.1 ml -8026.1 ml -739.1 ml medications Current Medications Medications Dose Ordered Sig/Sherron Route Start Time Stop Time Status Last Admin Dose Admin Pantoprazole Sodium 40 mg DAILY IV 12/18/24 10:00 12/26/24 09:14 40 MG Sodium Chloride 10 ml Q8HR IV 12/17/24 22:00 12/27/24 05:17 10 ML Midazolam HCl 50 ml @ 1 mls/hr Q24H IV 12/17/24 17:00 12/27/24 05:26 15 MLS/HR Valproate Sodium 250 mg/Sodium Chloride 52.5 ml @ 52.5 mls/hr BID IV 12/17/24 22:00 12/26/24 21:42 52.5 MLS/HR Propofol 100 ml @ 2.37 mls/hr Q24H IV 12/17/24 18:15 12/27/24 06:23 23.7 MLS/HR Fentanyl Citrate 250 ml @ 2.5 mls/hr Q24H IV 12/17/24 21:15 12/26/24 21:22 20 MLS/HR Norepinephrine Bitartrate 250 ml @ 3.75 mls/hr Q24H IV 12/18/24 01:45 12/20/24 00:01 30 MLS/HR Meropenem 50 ml @ 17 mls/hr Q8HR IV 12/18/24 22:00 12/27/24 05:15 17 MLS/HR Vancomycin HCl 0 ml @ 0 mls/hr UD IV 12/18/24 15:45 Enoxaparin Sodium 40 mg DAILY SC 12/19/24 10:00 Hold 12/26/24 09:15 40 MG Diagnostic Test (Pha) 1 strip Q6HR 12/20/24 18:00 12/27/24 05:45 1 STRIP Insulin Human Regular FOLLOW SLIDING SCALE Q6HR SC 12/20/24 18:00 Dextrose 50 ml UD IV 12/20/24 14:15 12/20/24 17:47 50 ML Metoclopramide HCl 5 mg Q8HR IV 12/22/24 22:00 12/27/24 05:17 5 MG Acetaminophen 650 mg Q6HP PRN ND 12/22/24 21:00 12/24/24 06:15 650 MG Sodium Chloride 40 meq/Potassium Chloride 40 meq/ Potassium Phosphate 11 meq/ Calcium Gluconate 2.3 meq/Magnesium Sulfate 8 meq/ Multivitamins 10 ml/Chromium/ Copper/Manganese/ Zinc 1 ml/Amino Acids/Dextrose/ Purified Water 1,450.4462 ml @ 60 mls/hr [id number] IV 12/26/24 22:00 12/27/24 21:59 Cancel Vancomycin HCl 300 ml @ 200 mls/hr Q8H IV 12/26/24 17:00 12/27/24 01:17 200 MLS/HR Potassium Chloride 100 ml @ 50 mls/hr Q2H IV 12/27/24 05:45 12/27/24 09:44 12/27/24 06:23 50 MLS/HR laboratory and microbiology Laboratory Tests 12/27/24 03:08 12/26/24 03:00 Test 12/27/24 03:08 Range/Units Serum Glucose 79 74-106 mg/dL Problem List/Assessment/Plan Problem List/Assessment/Plan 12/26/24 PATIENT EXAMINED WITH HIS MOTHER IN ATTENDANCE. ABDOMEN IS TENSELY DISTENDED AND FIRM, CT NOW INDICATES ASCITES. i HAVE DISCUSSED WITH Dr.N COLEMAN AND SHE WILL PROCEED WITH SIGMOIDOSCOPY/COLONOSCOPY . HAVE EXPLAINED TO HIS MOTHER HE MAY NEED AN OPERATION TO RESECT ISCHEMIC COLON AND GIVE HIM A COLOSTOMY. WILL PROCEED DEPENDING OF RESULTS OF Dr. Teo COLEMAN'S FINDINGS 12/27/24 DR.N COLEMAN CALLED ME AFTER SHE PERFORMED A SIGMOIDOSCOPY ON THIS PATIENT DURING WHICH SHE EVACUATED 6 LITERS OF MURKY FLUID FROM THE PATIENT'S COLON AND SHE SUSPECTS THAT THERE MAY BE A PERFORATION , ON HER EXAMINATION SHE DID SEE EVIDENCE OF ISCHEMIA. AFTER A THOROUGH DISCUSSION WITH PATIENT'S MOTHER WE WILL PROCEED WITH EXPLORATORY LAPAROTOMY AND PROBABLE COLECTOMY WITH COLOSTOMY. EXPLAINED RISKS AND COMPLICATIONS TO PATIENT'S MOTHER. Plan discussed with: Other Dietary Evaluation Review Comments: 1. TF: Vital AF@50ml/hr (90g protein, 1440kcal 973 free water) meeting Protein needs 83%, energy needs 80%. 2. TPN per pharmacy meeting 75% of his needs if TF not feasible or NPO>7 days. 3. Diet as tolerated per CONSTRUCTION CONTRACTOR eval when off Vent Expected Outcomes/Goals: Preventing catabolism HUMPHREY RUBIO MD Dec 27, 2024 07:42
[2024-12-27] MEDS ORDERED: FUROSEMIDE 20 MG/2 ML VIAL ONE (08:41)
[2024-12-27] MEDS: ROCURONIUM 10MG/ML 10ML VIAL IV ONE ×2 (10:00→10:03)
--- NOTE | 2024-12-27 10:19 | DVH ---
EXAM: XY CHEST PORTABLE HISTORY: ETT PLACEMENT COMPARISON: XY CHEST PORTABLE on DOS: 12/27/24, XY CHEST XRAY 1 VIEW on DOS: 12/26/24, XY CHEST PORTABLE on DOS: 12/25/24, XY CHEST PORTABLE on DOS: 12/24/24, XY CHEST XRAY 1 VIEW on DOS: 12/22/24 TECHNIQUE: Portable AP view of the chest was performed. FINDINGS: Endotracheal tube is re-identified with its tip 5.3 cm above the natalie. OG tube and right IJ centra l line are re-identified. Bilateral mid to lower lung infiltrates and effusions are improved on the r ight and stable on the left compared with the previous chest x-ray. No pneumothorax. The heart is no t enlarged. IMPRESSION: 1. Mechanical ventilation with tubes and lines as above. 2. Bilateral lung base infiltrates and effusions are improved in the right and stable on the left.
[2024-12-27 10:22] LABS: Base Excess -2.5 mmol/L (-2.0-3.0)
--- NOTE | 2024-12-27 10:45 | DVHOP ---
PREOPERATIVE DIAGNOSES: Ascites, suspected colon perforation. POSTOPERATIVE DIAGNOSES: Intraabdominal sepsis, bowel obstruction. SURGEON: Zane Krishna MD RESERVATIONS MANAGER: Duglas Patrick. ANESTHESIA: General endotracheal. ANESTHESIOLOGIST: Dr. Lewis. PROCEDURES: Exploratory laparotomy, lysis of adhesions and removal of intraperitoneal fibrinous adhesions covering the entire peritoneal cavity. DESCRIPTION OF PROCEDURE: Under general endotracheal anesthesia, with the patient's skin prepped and draped, a vertical incision was made into his abdomen and I entered the peritoneal cavity, which immediately released 2 liters of purulent material. This material did not have a bad odor and did not have any food particles or evidence of feculent contamination. The abdomen was entirely congealed with fibrinous adhesions and fibrous adhesions. The entire surface of the small bowel, colon, liver, and stomach was covered with a thick fibrinous exudate with evidence of infection. It took approximately 1 hour to just mobilize the bowel and strip the exudate from the gregory of the intestine in order to be able to inspect the intestine for perforation, none of which was encountered. The colon appeared nonischemic, nondilated. There was evidence of possible perforation material, which appeared to possibly be a fecalith, was removed; however, I was never able to discover the appendix as the colon was densely scarred into the posterior aspect of the right lower quadrant. There was an inherent danger in attempting too vigorous mobilization of the bowel, which was completely scarred into the peritoneal cavity. The mesentery of the small bowel was markedly foreshortened, which made mobilization extremely difficult. Eventually, we were able to inspect the small bowel in its entirety and found no evidence of perforation. There was no evidence of perforation in the stomach. No evidence of perforation in the colon that was evident; however, the colon was completely covered with the patient's fat, which was inflamed and there was evidence of saponification of the fat. For this reason, in order to avoid injury to the bowel, we terminated the procedure after thorough inspection of the visible surfaces. The abdomen was irrigated with 10 liters of warm saline and then 4 Jeanmarie-Dooley drains were inserted, 1 into each quadrant of the abdominal cavity, exteriorized separately and secured with 2-0 nylon suture. The fascia was closed in the midline with #1 double-stranded PDS suture and the subcutaneous tissues were irrigated and then skin sutures were pre-placed in order for them to be ligated in near future after assurance of the wound healing without an infection. Culture and sensitivities were submitted during the procedure. The wound was then covered with Betadine-saturated gauze. MD REGINA Mir/KRISTEN TID: [id number] RECEIPT: [id number]
[2024-12-27] MEDS: SODIUM CHLORIDE 0.9% 1,000 ML IV ONE (11:45)
[2024-12-27] MEDS ORDERED: SODIUM CHLORIDE 0.9% 1,000 ML IV SCH (12:15)
[2024-12-27] MEDS ORDERED: TPN PER PHARMACY 0 ML IV SCH (12:30)
[2024-12-27 13:00] LABS: Base Excess -6.0 mmol/L (-2.0-3.0)
[2024-12-27] MEDS: MICAFUNGIN SODIUM 100 MG in SODIUM CHL 0.9% 100 ML IV ONE (13:13)
[2024-12-27] MEDS: ALBUMIN 25% 50 ML IV ONE (13:14)
[2024-12-27 14:38] LABS: Hemoglobin 13.3 g/dL (13.5-17.5)
[2024-12-27 14:40] LABS: Hematocrit 39.5 % (41.0-53.0); Mean Corpuscular Hemoglobin 30.3 pg (28.0-32.0); Mean Corpuscular Volume 90.1 fL (80.0-100.0)
[2024-12-27 14:48] LABS: Chloride 102 mmol/L (98-107); Sodium 138 mmol/L (136-145)
[2024-12-27 14:49] LABS: Anion Gap 10 (5-15); Carbon Dioxide 26 mmol/L (20-31)
[2024-12-27] MEDS: SODIUM BICARB 50mEq/50ml Vial 50 ML in SOD CHL 0.45% 1,000 ML IV SCH (14:49)
[2024-12-27 14:50] LABS: Calcium 7.4 mg/dL (8.7-10.4); Potassium 5.4 mmol/L (3.5-5.1)
[2024-12-27 14:51] LABS: Base Excess -2.2 mmol/L (-2.0-3.0)
[2024-12-27 14:54] LABS: BUN/Creatinine Ratio 28.8 (10.0-20.0); Blood Urea Nitrogen 15 mg/dL (9-23); Glucose 96 mg/dL (74-106)
[2024-12-27 14:55] LABS: Magnesium 1.7 mg/dL (1.6-2.6)
[2024-12-27 15:07] LABS: Total Cells Counted 100.0 (100)
[2024-12-27] MEDS: ACETAMINOPHEN IV 1000 MG/100ML (10MG/ML) IV ONE (18:04)
[2024-12-27] MEDS: LEVALBUTEROL HCL 1.25 MG/3 ML NEB NEB SCH (18:17)
[2024-12-27] MEDS: IPRATROPIUM BROM 0.5 MG/2.5ML INH SOL NEB SCH (18:17)
[2024-12-27] MEDS: LIDOCAINE W/ EPINEPHRINE 1% 20ML VIAL ONE ×2 (19:43)
[2024-12-27] MEDS: LEVALBUTEROL HCL 1.25 MG/3 ML NEB HHN ONE (19:43)
[2024-12-27] MEDS: LEVALBUTEROL HCL 1.25 MG/3 ML NEB ONE (19:43)
[2024-12-27] MEDS: BUPIVACAINE 0.5% P/F INJ 10 ML VIAL ONE (19:43)
[2024-12-27] MEDS: KETOROLAC TROMETH 30 MG/ML 1ML VIAL IV ONE (19:44)
[2024-12-27] MEDS: LIDOCAINE 1% (LOCAL ANESTH.) PF 5ml SDV ID ONE (20:33)
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
[2024-12-27] MEDS: SODIUM CHLOR 0.9% PF (SALINE LOCK) 10ML VIAL/SYR IV SCH (21:50)
[2024-12-27] MEDS: TPN PER PHARMACY IV NR (22:00)
[2024-12-27] MEDS: VANCOMYCIN 1.5GM/300ML 300 ML IV SCH (22:38)
[2024-12-28] VITALS (111 sets, daily range): BP systolic 90–142; BP diastolic 42–101; PULSE 82–121; RESP 14–26; TEMP 95.7–100.9; O2SAT 91–100
[2024-12-28] MEDS: SODIUM BICARB 8.4% 50Meq/50ml SYR Vial IV ONE (03:50)
[2024-12-28 04:11] LABS: Lactic Acid w/Reflex 2.4 mmol/L (0.4-2.0)
[2024-12-28 04:12] LABS: Mean Corpuscular Hemoglobin 30.3 pg (28.0-32.0)
[2024-12-28 04:16] LABS: Hematocrit 34.9 % (41.0-53.0); Hemoglobin 11.7 g/dL (13.5-17.5); Mean Corpuscular Volume 90.6 fL (80.0-100.0)
[2024-12-28 04:33] LABS: Alanine Aminotransferase 10 U/L (7-40); Alkaline Phosphatase 72 U/L (46-116); Anion Gap 12 (5-15); BUN/Creatinine Ratio 26.3 (10.0-20.0); Blood Urea Nitrogen 15 mg/dL (9-23); Carbon Dioxide 23 mmol/L (20-31); Chloride 101 mmol/L (98-107); Magnesium 1.9 mg/dL (1.6-2.6); Potassium 3.8 mmol/L (3.5-5.1)
[2024-12-28 04:34] LABS: Albumin 2.6 g/dL (3.2-4.8); Bilirubin, Total 0.8 mg/dL (0.2-1.0); Calcium 7.2 mg/dL (8.7-10.4); Glucose 149 mg/dL (74-106); Sodium 136 mmol/L (136-145); Total Protein 4.5 g/dL (5.7-8.2)
[2024-12-28 04:53] LABS: Total Cells Counted 100.0 (100)
[2024-12-28 04:56] LABS: Base Excess 1.7 mmol/L (-2.0-3.0)
[2024-12-28] MEDS: ROCURONIUM 10MG/ML 10ML VIAL IV ONE (05:11)
[2024-12-28 05:31] LABS: INR 1.14 (0.9-1.15); Partial Thromboplastin Time 30.5 SEC (24.5-34.5); Prothrombin Time 11.9 sec (9.3-11.8)
--- NOTE | 2024-12-28 06:21 | DVH ---
CHEST RADIOGRAPH Indication: intubated Technique: Single frontal view of the chest was obtained COMPARISON: XY CHEST PORTABLE on DOS: 12/27/24, XY CHEST PORTABLE on DOS: 12/27/24, XY CHEST XRAY 1 VIE W on DOS: 12/26/24, XY CHEST PORTABLE on DOS: 12/25/24, XY CHEST PORTABLE on DOS: 12/24/24 FINDINGS: Lines and Tubes: Slight interval advancement of endotracheal tube with tip now projecting approximate ly 4.0 cm above the level of the natalie. Remaining lines and tubes unchanged. Lungs: Slight interval progression in small left pleural effusion and right basilar atelectasis with otherwise stable appearing diffuse prominence of the pulmonary vasculature. No pneumothorax. Cardiomediastinal contours: Unremarkable Bones: Unremarkable IMPRESSION: 1. Slight interval progression of small left pleural effusion and right basilar atelectasis. 2. Stable diffuse increased prominence of the pulmonary vasculature. 3. Interval advancement of endotracheal tube and remaining lines and tubes unchanged.
[2024-12-28 08:23] LABS: Base Excess 3.5 mmol/L (-2.0-3.0)
--- NOTE | 2024-12-28 09:46 | DVHPN2 ---
Progress Note Date Seen: Dec 28, 2024 Has the PT tested + for MRSA If YES, has PT been informed?: No Medical Necessity Reason Pt with a Central, PICC or Fol: Yes The following are medically ne: Navarrete Catheter Reason for navarrete catheter: Strict I&O Objective vital signs Vital Sign Date Time Temp Pulse Resp B/P (MAP) Pulse Ox O2 Delivery O2 Flow Rate FiO2 12/28/24 08:54 138/93 12/28/24 08:28 30 12/28/24 08:13 104 22 100 12/28/24 06:46 99.0 210.2 12/28/24 06:00 Mechanical Ventilator+ Total Intake and Output 12/27/24 12/27/24 12/28/24 14:59 22:59 06:59 Intake Total 1836.7 ml 2145.6 ml 1947.6 ml Output Total 100 ml 1490 ml 790 ml Balance 1736.7 ml 655.6 ml 1157.6 ml medications Current Medications Medications Dose Ordered Sig/Sherron Route Start Time Stop Time Status Last Admin Dose Admin Pantoprazole Sodium 40 mg DAILY IV 12/18/24 10:00 12/27/24 10:20 40 MG Midazolam HCl 50 ml @ 1 mls/hr Q24H IV 12/17/24 17:00 12/28/24 06:53 15 MLS/HR Valproate Sodium 250 mg/Sodium Chloride 52.5 ml @ 52.5 mls/hr BID IV 12/17/24 22:00 12/27/24 21:46 52.5 MLS/HR Propofol 100 ml @ 2.37 mls/hr Q24H IV 12/17/24 18:15 12/28/24 06:53 23.7 MLS/HR Fentanyl Citrate 250 ml @ 2.5 mls/hr Q24H IV 12/17/24 21:15 12/28/24 08:54 2.5 MLS/HR Norepinephrine Bitartrate 250 ml @ 3.75 mls/hr Q24H IV 12/18/24 01:45 12/20/24 00:01 30 MLS/HR Meropenem 50 ml @ 17 mls/hr Q8HR IV 12/18/24 22:00 12/28/24 05:18 17 MLS/HR Vancomycin HCl 0 ml @ 0 mls/hr UD IV 12/18/24 15:45 Enoxaparin Sodium 40 mg DAILY SC 12/19/24 10:00 Hold 12/26/24 09:15 40 MG Diagnostic Test (Pha) 1 strip Q6HR 12/20/24 18:00 12/28/24 05:21 1 STRIP Insulin Human Regular FOLLOW SLIDING SCALE Q6HR SC 12/20/24 18:00 12/28/24 05:23 2 UNITS Dextrose 50 ml UD IV 12/20/24 14:15 12/20/24 17:47 50 ML Acetaminophen 650 mg Q6HP PRN [place] 12/22/24 21:00 12/27/24 22:06 650 MG Sodium Chloride 40 meq/Potassium Chloride 40 meq/ Potassium Phosphate 11 meq/ Calcium Gluconate 2.3 meq/Magnesium Sulfate 8 meq/ Multivitamins 10 ml/Chromium/ Copper/Manganese/ Zinc 1 ml/Amino Acids/Dextrose/ Purified Water 1,450.4462 ml @ 60 mls/hr [id number] IV 12/26/24 22:00 12/27/24 21:59 Cancel Ipratropium [place] 0.5 mg Q6HR NEB 12/27/24 18:00 12/28/24 06:12 0.5 MG Levalbuterol HCl 1.25 mg Q6HR NEB 12/27/24 18:00 12/28/24 06:12 1.25 MG Micafungin Sodium 100 mg/Sodium Chloride 100 ml @ 100 mls/hr DAILY IV 12/28/24 10:00 Amino Acids 0 ml @ 0 mls/hr PER PHARMACY IV 12/27/24 12:30 Sodium Bicarbonate 50 ml/ Sodium Chloride 1,050 ml @ 75 mls/hr Q14H IV 12/27/24 12:30 12/28/24 03:48 75 MLS/HR Sodium Chloride 10 meq/Potassium Chloride 20 meq/ Potassium Phosphate 11 meq/ Magnesium Sulfate 6 meq/ Multivitamins 10 ml/Chromium/ Copper/Manganese/ Zinc 1 ml/Amino Acids/Dextrose/ Purified Water 1,227.5 ml @ 51 mls/hr Q24H5M IV 12/27/24 22:00 12/28/24 21:59 12/27/24 22:00 51 MLS/HR Sodium Chloride 10 ml QSHIFT@ IV 12/27/24 22:00 12/27/24 21:50 10 ML Vancomycin HCl 300 ml @ 200 mls/hr Q10H IV 12/27/24 22:00 12/28/24 08:59 200 MLS/HR laboratory and microbiology Laboratory Tests 12/28/24 03:06 Test 12/28/24 03:06 Range/Units Serum Glucose 149 H 74-106 mg/dL Problem List/Assessment/Plan Problem List/Assessment/Plan 12/26/24 PATIENT EXAMINED WITH HIS MOTHER IN ATTENDANCE. ABDOMEN IS TENSELY DISTENDED AND FIRM, CT NOW INDICATES ASCITES. i HAVE DISCUSSED WITH Dr.N COLEMAN AND SHE WILL PROCEED WITH SIGMOIDOSCOPY/COLONOSCOPY . HAVE EXPLAINED TO HIS MOTHER HE MAY NEED AN OPERATION TO RESECT ISCHEMIC COLON AND GIVE HIM A COLOSTOMY. WILL PROCEED DEPENDING OF RESULTS OF Dr. Teo COLEMAN'S FINDINGS 12/27/24 DR.N COLEMAN CALLED ME AFTER SHE PERFORMED A SIGMOIDOSCOPY ON THIS PATIENT DURING WHICH SHE EVACUATED 6 LITERS OF MURKY FLUID FROM THE PATIENT'S COLON AND SHE SUSPECTS THAT THERE MAY BE A PERFORATION , ON HER EXAMINATION SHE DID SEE EVIDENCE OF ISCHEMIA. AFTER A THOROUGH DISCUSSION WITH PATIENT'S MOTHER WE WILL PROCEED WITH EXPLORATORY LAPAROTOMY AND PROBABLE COLECTOMY WITH COLOSTOMY. EXPLAINED RISKS AND COMPLICATIONS TO PATIENT'S MOTHER. 12/28/24 abdomen soft, non distended, all 4 drains with serous drainage, clinically unchanged. WBC improved. Plan discussed with: Other Dietary Evaluation Review Comments: 1. TF: Vital AF@50ml/hr (90g protein, 1440kcal 973 free water) meeting Protein needs 83%, energy needs 80%. 2. TPN per pharmacy meeting 75% of his needs if TF not feasible or NPO>7 days. 3. Diet as tolerated per SDV PILOT/NAVIGATOR/DDS OPERATOR eval when off Vent Expected Outcomes/Goals: Preventing catabolism HUMPHREY RUBIO MD Dec 28, 2024 09:46
[2024-12-28] MEDS: MICAFUNGIN SODIUM 100 MG in SODIUM CHL 0.9% 100 ML IV SCH (10:40)
[2024-12-28 10:55] LABS: Base Excess -0.6 mmol/L (-2.0-3.0)
[2024-12-28] MEDS: FUROSEMIDE 40 MG/4 ML VIAL IV ONE (12:06)
[2024-12-28 13:16] LABS: Base Excess 1.8 mmol/L (-2.0-3.0)
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
[2024-12-28] MEDS: LACTATED RINGER'S 1,000 ML IV SCH (17:42)
--- NOTE | 2024-12-28 21:28 | DVHPN2 ---
Progress Note - Dictate Date Seen: Dec 28, 2024 Has the PT tested + for MRSA If YES, has PT been informed?: No Medical Necessity Reason Pt with a Central, PICC or Fol: Yes The following are medically ne: Navarrete Catheter Reason for navarrete catheter: Strict I&O Subjective Postop day 1. S/P expiratory laparotomy operative report findings noted Patient had a frozen abdomen with extensive exudates fibrosis, lysis of adhesions was performed but no clear-cut perforation was identified Patient had about 450 mL out via the NG tube vital signs Vital Sign Date Time Temp Pulse Resp B/P (MAP) Pulse Ox O2 Delivery O2 Flow Rate FiO2 12/28/24 20:11 94 16 94/52 (66) 98 30 12/28/24 18:15 97.7 207.9 12/28/24 18:00 Mechanical Ventilator+ Total Intake and Output 12/27/24 12/27/24 12/28/24 15:00 23:00 07:00 Intake Total 1916.7 ml 2187.1 ml 1947.6 ml Output Total 100 ml 1490 ml 790 ml Balance 1816.7 ml 697.1 ml 1157.6 ml medications Current Medications Medications Dose Ordered Sig/Sherron Route Start Time Stop Time Status Last Admin Dose Admin Pantoprazole Sodium 40 mg DAILY IV 12/18/24 10:00 12/28/24 10:40 40 MG Midazolam HCl 50 ml @ 1 mls/hr Q24H IV 12/17/24 17:00 12/28/24 20:36 15 MLS/HR Valproate Sodium 250 mg/Sodium Chloride 52.5 ml @ 52.5 mls/hr BID IV 12/17/24 22:00 12/28/24 10:41 52.5 MLS/HR Propofol 100 ml @ 2.37 mls/hr Q24H IV 12/17/24 18:15 12/28/24 17:10 23.7 MLS/HR Fentanyl Citrate 250 ml @ 2.5 mls/hr Q24H IV 12/17/24 21:15 12/28/24 16:27 32.5 MLS/HR Norepinephrine Bitartrate 250 ml @ 3.75 mls/hr Q24H IV 12/18/24 01:45 12/20/24 00:01 30 MLS/HR Meropenem 50 ml @ 17 mls/hr Q8HR IV 12/18/24 22:00 12/28/24 14:47 17 MLS/HR Vancomycin HCl 0 ml @ 0 mls/hr UD IV 12/18/24 15:45 Enoxaparin Sodium 40 mg DAILY SC 12/19/24 10:00 Hold 12/26/24 09:15 40 MG Diagnostic Test (Pha) 1 strip Q6HR 12/20/24 18:00 12/28/24 17:14 1 STRIP Insulin Human Regular FOLLOW SLIDING SCALE Q6HR SC 12/20/24 18:00 12/28/24 12:10 2 UNITS Dextrose 50 ml UD IV 12/20/24 14:15 12/20/24 17:47 50 ML Acetaminophen 650 mg Q6HP PRN NV 12/22/24 21:00 12/27/24 22:06 650 MG Sodium Chloride 40 meq/Potassium Chloride 40 meq/ Potassium Phosphate 11 meq/ Calcium Gluconate 2.3 meq/Magnesium Sulfate 8 meq/ Multivitamins 10 ml/Chromium/ Copper/Manganese/ Zinc 1 ml/Amino Acids/Dextrose/ Purified Water 1,450.4462 ml @ 60 mls/hr [id number] IV 12/26/24 22:00 12/27/24 21:59 Cancel Ipratropium [place] 0.5 mg Q6HR NEB 12/27/24 18:00 12/28/24 18:31 0.5 MG Levalbuterol HCl 1.25 mg Q6HR NEB 12/27/24 18:00 12/28/24 18:32 1.25 MG Micafungin Sodium 100 mg/Sodium Chloride 100 ml @ 100 mls/hr DAILY IV 12/28/24 10:00 12/28/24 10:53 100 MLS/HR Amino Acids 0 ml @ 0 mls/hr PER PHARMACY IV 12/27/24 12:30 Sodium Chloride 10 meq/Potassium Chloride 20 meq/ Potassium Phosphate 11 meq/ Magnesium Sulfate 6 meq/ Multivitamins 10 ml/Chromium/ Copper/Manganese/ Zinc 1 ml/Amino Acids/Dextrose/ Purified Water 1,227.5 ml @ 51 mls/hr Q24H5M IV 12/27/24 22:00 12/28/24 21:59 12/27/24 22:00 51 MLS/HR Sodium Chloride 10 ml QSHIFT@,22 IV 12/27/24 22:00 12/28/24 10:40 10 ML Vancomycin HCl 300 ml @ 200 mls/hr Q10H IV 12/27/24 22:00 12/28/24 17:43 200 MLS/HR Sodium Acetate 20 meq/Potassium Chloride 30 meq/ Potassium Phosphate 11 meq/ Calcium Gluconate 2.3 meq/Magnesium Sulfate 12 meq/ Multivitamins 10 ml/Chromium/ Copper/Manganese/ Zinc 1 ml/Amino Acids/Dextrose 1,096.4462 ml @ 46 mls/hr [id number] IV 12/28/24 22:00 12/29/24 21:59 Lactated Ringer's 1,000 ml @ 75 mls/hr [id number] IV 12/28/24 16:00 12/28/24 17:42 75 MLS/HR objective General Appearance: Other (Fully intubated) HEENT: Atraumatic, PERRLA, EOMI, Mucous membr. moist/pink Respiratory: Normal air movement, Other (On ventilator) Cardiovascular: Regular rate, Normal S1, Normal S2, No murmurs Abdominal: Binder in place, soft, distended, no bowel sounds Extremities: No clubbing, No cyanosis, No edema, Normal pulses, No tenderness/swelling Skin: No rashes, No breakdown, No significant lesion Neuro: Normal speech, Normal tone, Sensation intact, Cranial nerves 3-12 NL, Reflexes 2+, Other (Generalized weakness) Psych/Mental Status: Mood NL, Other (Altered mental status) Rectal exam, normal tone no obstipation rectal mass or obstruction noted and no stool in the rectum laboratory and microbiology Laboratory Tests 12/28/24 03:06 Test 12/28/24 03:06 Range/Units Serum Glucose 149 H 74-106 mg/dL Problems(with codes): (1) Abnormal finding on GI tract imaging (2) Leukocytosis, unspecified (3) Abdominal pain Prognosis Plan Continue IV antibiotics Continue tube feedings Keep this patient NPO for now Surgical consult appreciated and is following patient Prognosis remains guarded We will continued conservative management Surgical consult to decide about any repeat laparotomy with loop ileostomy versus colostomy Dietary Evaluation Review Comments: 1. TF: Vital AF@50ml/hr (90g protein, 1440kcal 973 free water) meeting Protein needs 83%, energy needs 80%. 2. TPN per pharmacy meeting 75% of his needs if TF not feasible or NPO>7 days. 3. Diet as tolerated per [employer] eval when off Vent Expected Outcomes/Goals: Preventing catabolism Plan discussed with: Other (ICU Nurse and Dr Zane Krishna) MAO COLEMAN MD Dec 28, 2024 21:28
[2024-12-28] MEDS: TPN PER PHARMACY IV NR (21:54)
[2024-12-29] VITALS (111 sets, daily range): BP systolic 93–140; BP diastolic 49–85; PULSE 90–108; RESP 7–26; TEMP 95–100.2; O2SAT 87–100
[2024-12-29 03:43] LABS: Hemoglobin 8.5 g/dL (13.5-17.5); Mean Corpuscular Hemoglobin 30.4 pg (28.0-32.0)
[2024-12-29 03:45] LABS: Hematocrit 25.3 % (41.0-53.0); Mean Corpuscular Volume 90.7 fL (80.0-100.0)
[2024-12-29 04:02] LABS: Alkaline Phosphatase 55 U/L (46-116); Anion Gap 5 (5-15); BUN/Creatinine Ratio 43.2 (10.0-20.0); Bilirubin, Total 0.4 mg/dL (0.2-1.0); Blood Urea Nitrogen 16 mg/dL (9-23); Carbon Dioxide 31 mmol/L (20-31); Chloride 102 mmol/L (98-107); Glucose 105 mg/dL (74-106); Magnesium 1.9 mg/dL (1.6-2.6); Sodium 138 mmol/L (136-145)
[2024-12-29 04:05] LABS: Alanine Aminotransferase < 9 U/L (7-40); Albumin 2.4 g/dL (3.2-4.8); Calcium 7.4 mg/dL (8.7-10.4); Potassium 3.4 mmol/L (3.5-5.1); Total Protein 4.3 g/dL (5.7-8.2)
[2024-12-29 04:27] LABS: Total Cells Counted 100.0 (100)
[2024-12-29 04:32] LABS: Triglycerides 163 mg/dL (< 150)
[2024-12-29] MEDS: POTASSIUM CHL 20MEQ/100ML 100 ML IV ONE (05:56)
[2024-12-29] MEDS: MAGNESIUM SULFATE 1GM/100ML 100 ML IV ONE (05:57)
--- NOTE | 2024-12-29 06:14 | DVH ---
Exam: US US GUIDED VASCULAR ACCESS Clinical History: picc line placement Comparison: None Findings: Targeted sonographic evaluation of the vein was obtained utilizing grayscale and color Doppler anish brown IMPRESSION: Sonographic assistance for peripherally inserted central line placement. Please refer to procedural r eport for detailed findings.
--- NOTE | 2024-12-29 06:19 | DVH ---
CHEST RADIOGRAPH Indication: intubated Technique: Single frontal view of the chest was obtained COMPARISON: XY CHEST XRAY 1 VIEW on DOS: 12/28/24, XY CHEST PORTABLE on DOS: 12/27/24, XY CHEST PORTABL E on DOS: 12/27/24, XY CHEST XRAY 1 VIEW on DOS: 12/26/24, XY CHEST PORTABLE on DOS: 12/25/24 FINDINGS: Lines and Tubes: Endotracheal tube, enteric catheter and right PICC in satisfactory position. Lungs: Focal airspace disease. Pleura: No effusion. No pneumothorax. Cardiomediastinal contours: Cardiomegaly Bones: Unremarkable IMPRESSION: Cardiomegaly. Coronary artery calcifications. Vascular calcifications of the aorta.
[2024-12-29 09:37] LABS: Base Excess 2.7 mmol/L (-2.0-3.0)
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
[2024-12-29 10:30] LABS: Hematocrit 25.5 % (41.0-53.0); Hemoglobin 8.4 g/dL (13.5-17.5)
[2024-12-29] MEDS: FUROSEMIDE 40 MG/4 ML VIAL IV SCH (11:14)
--- NOTE | 2024-12-29 12:50 | DVHPN2 ---
Progress Note - Dictate Date Seen: Dec 29, 2024 Has the PT tested + for MRSA If YES, has PT been informed?: No Medical Necessity Reason Pt with a Central, PICC or Fol: Yes The following are medically ne: Navarrete Catheter Reason for navarrete catheter: Strict I&O vital signs Vital Sign Date Time Temp Pulse Resp B/P (MAP) Pulse Ox O2 Delivery O2 Flow Rate FiO2 12/29/24 12:00 98 17 117/71 (86) 98 30 12/29/24 11:45 99.0 210.2 12/29/24 10:00 Mechanical Ventilator+ Total Intake and Output 12/28/24 12/28/24 12/29/24 15:00 23:00 07:00 Intake Total 1512.6 ml 1492.25 ml 1929.81 ml Output Total 2940 ml 1165 ml Balance 1512.6 ml -1447.75 ml 764.81 ml medications Current Medications Medications Dose Ordered Sig/Sherron Route Start Time Stop Time Status Last Admin Dose Admin Pantoprazole Sodium 40 mg DAILY IV 12/18/24 10:00 12/29/24 10:16 40 MG Midazolam HCl 50 ml @ 1 mls/hr Q24H IV 12/17/24 17:00 12/29/24 11:26 15 MLS/HR Valproate Sodium 250 mg/Sodium Chloride 52.5 ml @ 52.5 mls/hr BID IV 12/17/24 22:00 12/29/24 10:52 52.5 MLS/HR Propofol 100 ml @ 2.37 mls/hr Q24H IV 12/17/24 18:15 12/29/24 07:22 21.33 MLS/HR Fentanyl Citrate 250 ml @ 2.5 mls/hr Q24H IV 12/17/24 21:15 12/29/24 06:08 32.5 MLS/HR Norepinephrine Bitartrate 250 ml @ 3.75 mls/hr Q24H IV 12/18/24 01:45 12/20/24 00:01 30 MLS/HR Meropenem 50 ml @ 17 mls/hr Q8HR IV 12/18/24 22:00 12/29/24 06:52 17 MLS/HR Vancomycin HCl 0 ml @ 0 mls/hr UD IV 12/18/24 15:45 Enoxaparin Sodium 40 mg DAILY SC 12/19/24 10:00 Hold 12/26/24 09:15 40 MG Diagnostic Test (Pha) 1 strip Q6HR 12/20/24 18:00 12/29/24 11:21 1 STRIP Insulin Human Regular FOLLOW SLIDING SCALE Q6HR IN 12/20/24 18:00 12/28/24 12:10 2 UNITS Dextrose 50 ml UD IV 12/20/24 14:15 12/20/24 17:47 50 ML Acetaminophen 650 mg Q6HP PRN PA 12/22/24 21:00 12/27/24 22:06 650 MG Sodium Chloride 40 meq/Potassium Chloride 40 meq/ Potassium Phosphate 11 meq/ Calcium Gluconate 2.3 meq/Magnesium Sulfate 8 meq/ Multivitamins 10 ml/Chromium/ Copper/Manganese/ Zinc 1 ml/Amino Acids/Dextrose/ Purified Water 1,450.4462 ml @ 60 mls/hr [id number] IV 12/26/24 22:00 12/27/24 21:59 Cancel Ipratropium [place] 0.5 mg Q6HR NEB 12/27/24 18:00 12/29/24 12:00 0.5 MG Levalbuterol HCl 1.25 mg Q6HR NEB 12/27/24 18:00 12/29/24 12:00 1.25 MG Micafungin Sodium 100 mg/Sodium Chloride 100 ml @ 100 mls/hr DAILY IV 12/28/24 10:00 12/29/24 10:16 100 MLS/HR Amino Acids 0 ml @ 0 mls/hr PER PHARMACY IV 12/27/24 12:30 Sodium Chloride 10 ml QSHIFT@10,22 IV 12/27/24 22:00 12/29/24 10:17 10 ML Vancomycin HCl 300 ml @ 200 mls/hr Q10H IV 12/27/24 22:00 12/29/24 04:34 200 MLS/HR Sodium Acetate 20 meq/Potassium Chloride 30 meq/ Potassium Phosphate 11 meq/ Calcium Gluconate 2.3 meq/Magnesium Sulfate 12 meq/ Multivitamins 10 ml/Chromium/ Copper/Manganese/ Zinc 1 ml/Amino Acids/Dextrose 1,096.4462 ml @ 46 mls/hr [id number] IV 12/28/24 22:00 12/29/24 21:59 12/28/24 21:54 46 MLS/HR Lactated Ringer's 1,000 ml @ 75 mls/hr [id number] IV 12/28/24 16:00 12/29/24 05:26 75 MLS/HR Furosemide 40 mg DAILY IV 12/29/24 10:45 12/29/24 11:14 40 MG Sodium Chloride 20 meq/Potassium Chloride 30 meq/ Potassium Phosphate 33 meq/ Calcium Gluconate 2.3 meq/Magnesium Sulfate 16 meq/ Multivitamins 10 ml/Chromium/ Copper/Manganese/ Zinc 1 ml/Amino Acids/Dextrose 1,197.4462 ml @ 50 mls/hr [id number] IV 12/29/24 22:00 12/30/24 21:59 laboratory and microbiology Laboratory Tests 12/29/24 10:05 12/29/24 03:28 Test 12/29/24 03:28 Range/Units Serum Glucose 105 74-106 mg/dL Assessment/Plan Seasoner rounds Impression Acute hypoxemic respiratory failure Fluid overload Sepsis S/p ex lap Patient seen and examined in ICU Events On mechanical ventilation S/p intubation PEEP 8, FiO2 40% Transitioned to volume control S/p ex lap [address] Labs and imaging reviewed Chest x-ray shows infiltrates, bilateral pleural effusions and pulmonary edema ABG reviewed pH 7.45, pCO2 38, pO2 103 Management Vent support Titrate to maintain sats 90% or above Sedation for vent synchrony Continue antibiotics F/u cultures Bronchodilators Monitor renal function Monitor electrolytes Supplement as needed Pressors as needed for hemodynamic support To maintain a mean arterial pressure of 65 mmHg F/u general surgery DVT prophylaxis Critical care time 35 minutes Dietary Evaluation Review Comments: 1. TF: Vital AF@50ml/hr (90g protein, 1440kcal 973 free water) meeting Protein needs 83%, energy needs 80%. 2. TPN per pharmacy meeting 75% of his needs if TF not feasible or NPO>7 days. 3. Diet as tolerated per DIRECTOR OF FINANCE eval when off Vent Expected Outcomes/Goals: Preventing catabolism Plan discussed with: Other (Rn) RENARD VALVERDE MD Dec 29, 2024 12:50
[2024-12-29] MEDS: POTASSIUM PHOSPHATE IV NR (22:17)
[2024-12-29] MEDS: SODIUM CHLORIDE IV NR (22:17)
[2024-12-29] MEDS: POTASSIUM CHLORIDE IV NR (22:17)
[2024-12-29] MEDS: [UNRECOGNIZED DRUG - OTHER] IV NR (22:17)
--- NOTE | 2024-12-29 23:13 | DVHPN2 ---
Progress Note - Dictate Date Seen: Dec 29, 2024 Has the PT tested + for MRSA If YES, has PT been informed?: No Medical Necessity Reason Pt with a Central, PICC or Fol: Yes The following are medically ne: Navarrete Catheter Reason for navarrete catheter: Strict I&O Subjective Postop day 2. S/P expiratory laparotomy operative report findings noted Patient had a frozen abdomen with extensive exudates fibrosis, lysis of adhesions was performed but no clear-cut perforation was identified Patient had about 400 mL out via the NG tube greenish There is also a Dobb[place] that is not being used . Patient is on sedation, intubated, no CPAP or sedation vacation trials per primary team. Currently drips are Versed 15, propofol 45, fentanyl 325, TPN 46. Continuing broad-spectrum antibiotics vancomycin/meropenem/micafungin. P Patient has anasarca, albumin very low 2.5. Recent echo EF was normal and no abnormalities. Patient has history of drug abuse, suspect renal disease nephrotic or similar causing low protein state and/or liver disease. Patient will need albumin infusion. vital signs Vital Sign Date Time Temp Pulse Resp B/P (MAP) Pulse Ox O2 Delivery O2 Flow Rate FiO2 12/29/24 22:45 100.2 106 18 138/77 (97) 97 212.4 12/29/24 22:13 30 12/29/24 22:00 Mechanical Ventilator+ Total Intake and Output 12/28/24 12/28/24 12/29/24 15:00 23:00 07:00 Intake Total 1512.6 ml 1492.25 ml 2119.64 ml Output Total 2940 ml 1165 ml Balance 1512.6 ml -1447.75 ml 954.64 ml medications Current Medications Medications Dose Ordered Sig/Sherron Route Start Time Stop Time Status Last Admin Dose Admin Pantoprazole Sodium 40 mg DAILY IV 12/18/24 10:00 12/29/24 10:16 40 MG Midazolam HCl 50 ml @ 1 mls/hr Q24H IV 12/17/24 17:00 12/29/24 21:50 15 MLS/HR Valproate Sodium 250 mg/Sodium Chloride 52.5 ml @ 52.5 mls/hr BID IV 12/17/24 22:00 12/29/24 22:26 52.5 MLS/HR Propofol 100 ml @ 2.37 mls/hr Q24H IV 12/17/24 18:15 12/29/24 18:26 21.33 MLS/HR Fentanyl Citrate 250 ml @ 2.5 mls/hr Q24H IV 12/17/24 21:15 12/29/24 21:52 35 MLS/HR Norepinephrine Bitartrate 250 ml @ 3.75 mls/hr Q24H IV 12/18/24 01:45 12/20/24 00:01 30 MLS/HR Meropenem 50 ml @ 17 mls/hr Q8HR IV 12/18/24 22:00 12/29/24 21:54 17 MLS/HR Vancomycin HCl 0 ml @ 0 mls/hr UD IV 12/18/24 15:45 Enoxaparin Sodium 40 mg DAILY SC 12/19/24 10:00 Hold 12/26/24 09:15 40 MG Diagnostic Test (Pha) 1 strip Q6HR 12/20/24 18:00 12/29/24 18:31 1 STRIP Insulin Human Regular FOLLOW SLIDING SCALE Q6HR SC 12/20/24 18:00 12/28/24 12:10 2 UNITS Dextrose 50 ml UD IV 12/20/24 14:15 12/20/24 17:47 50 ML Acetaminophen 650 mg Q6HP PRN OK 12/22/24 21:00 12/27/24 22:06 650 MG Sodium Chloride 40 meq/Potassium Chloride 40 meq/ Potassium Phosphate 11 meq/ Calcium Gluconate 2.3 meq/Magnesium Sulfate 8 meq/ Multivitamins 10 ml/Chromium/ Copper/Manganese/ Zinc 1 ml/Amino Acids/Dextrose/ Purified Water 1,450.4462 ml @ 60 mls/hr [id number] IV 12/26/24 22:00 12/27/24 21:59 Cancel Ipratropium [place] 0.5 mg Q6HR NEB 12/27/24 18:00 12/29/24 18:01 0.5 MG Levalbuterol HCl 1.25 mg Q6HR NEB 12/27/24 18:00 12/29/24 18:01 1.25 MG Micafungin Sodium 100 mg/Sodium Chloride 100 ml @ 100 mls/hr DAILY IV 12/28/24 10:00 12/29/24 10:16 100 MLS/HR Amino Acids 0 ml @ 0 mls/hr PER PHARMACY IV 12/27/24 12:30 Sodium Chloride 10 ml QSHIFT@10,22 IV 12/27/24 22:00 12/29/24 10:17 10 ML Vancomycin HCl 300 ml @ 200 mls/hr Q10H IV 12/27/24 22:00 12/29/24 14:03 200 MLS/HR Furosemide 40 mg DAILY IV 12/29/24 10:45 12/29/24 11:14 40 MG Sodium Chloride 20 meq/Potassium Chloride 30 meq/ Potassium Phosphate 33 meq/ Calcium Gluconate 2.3 meq/Magnesium Sulfate 16 meq/ Multivitamins 10 ml/Chromium/ Copper/Manganese/ Zinc 1 ml/Amino Acids/Dextrose 1,197.4462 ml @ 50 mls/hr [id number] IV 12/29/24 22:00 12/30/24 21:59 12/29/24 22:17 50 MLS/HR objective General Appearance: Other (Fully intubated) HEENT: Atraumatic, PERRLA, EOMI, Mucous membr. moist/pink Respiratory: Normal air movement, Other (On ventilator) Cardiovascular: Regular rate, Normal S1, Normal S2, No murmurs Abdominal: Binder in place, soft, distended, no bowel sounds Extremities: No clubbing, No cyanosis, No edema, Normal pulses, No tenderness/swelling Skin: No rashes, No breakdown, No significant lesion Neuro: Normal speech, Normal tone, Sensation intact, Cranial nerves 3-12 NL, Reflexes 2+, Other (Generalized weakness) Psych/Mental Status: Mood NL, Other (Altered mental status) Rectal exam, normal tone no obstipation rectal mass or obstruction noted and no stool in the rectum laboratory and microbiology Laboratory Tests 12/29/24 10:05 12/29/24 03:28 Test 12/29/24 03:28 Range/Units Serum Glucose 105 74-106 mg/dL Problems(with codes): (1) Abnormal finding on GI tract imaging (2) Leukocytosis (3) Acute abdominal pain (4) Generalized weakness (5) Sepsis, unspecified organism (6) Constipation (7) Colitis (8) Leukocytosis, unspecified (9) Abdominal pain (10) Neuropathy involving both lower extremities Prognosis Plan Continue IV antibiotics IV TPN Keep this patient NPO for now Surgical consult appreciated and is following patient Prognosis remains guarded We will continued conservative management Surgical consult to decide about any repeat laparotomy with loop ileostomy versus colostomy Dietary Evaluation Review Comments: 1. TF: Vital AF@50ml/hr (90g protein, 1440kcal 973 free water) meeting Protein needs 83%, energy needs 80%. 2. TPN per pharmacy meeting 75% of his needs if TF not feasible or NPO>7 days. 3. Diet as tolerated per [employer] eval when off Vent Expected Outcomes/Goals: Preventing catabolism Plan discussed with: Other (None) MAO COLEMAN MD Dec 29, 2024 23:13
[2024-12-30] VITALS (109 sets, daily range): BP systolic 99–169; BP diastolic 55–105; PULSE 91–118; RESP 16–27; TEMP 97.5–100.9; O2SAT 92–100
[2024-12-30 04:50] LABS: Albumin 2.1 g/dL (3.2-4.8); Alkaline Phosphatase 62 U/L (46-116); Anion Gap 6 (5-15); BUN/Creatinine Ratio 18.3 (10.0-20.0); Blood Urea Nitrogen 11 mg/dL (9-23); Calcium 7.0 mg/dL (8.7-10.4); Carbon Dioxide 24 mmol/L (20-31); Chloride 94 mmol/L (98-107); Magnesium 2.6 mg/dL (1.6-2.6); Sodium 124 mmol/L (136-145); Total Protein 3.9 g/dL (5.7-8.2)
[2024-12-30 04:51] LABS: Bilirubin, Total 0.2 mg/dL (0.2-1.0); Potassium 6.4 mmol/L (3.5-5.1)
[2024-12-30 04:59] LABS: Alanine Aminotransferase < 9 U/L (7-40)
[2024-12-30 05:04] LABS: Glucose 934 mg/dL (74-106)
[2024-12-30 09:39] LABS: Alkaline Phosphatase 75 U/L (46-116); Anion Gap 9 (5-15); BUN/Creatinine Ratio 30.8 (10.0-20.0); Bilirubin, Total 0.3 mg/dL (0.2-1.0); Blood Urea Nitrogen 12 mg/dL (9-23); Carbon Dioxide 26 mmol/L (20-31); Chloride 104 mmol/L (98-107); Glucose 96 mg/dL (74-106); Magnesium 1.9 mg/dL (1.6-2.6); Sodium 139 mmol/L (136-145)
[2024-12-30 09:45] LABS: Alanine Aminotransferase 9 U/L (7-40); Albumin 2.5 g/dL (3.2-4.8); Calcium 7.9 mg/dL (8.7-10.4); Potassium 3.5 mmol/L (3.5-5.1); Total Protein 4.6 g/dL (5.7-8.2)
--- NOTE | 2024-12-30 10:17 | DVHPN2 ---
Progress Note Date Seen: Dec 30, 2024 Has the PT tested + for MRSA If YES, has PT been informed?: No Medical Necessity Reason Pt with a Central, PICC or Fol: Yes The following are medically ne: Navarrete Catheter Reason for navarrete catheter: Strict I&O Objective vital signs Vital Sign Date Time Temp Pulse Resp B/P (MAP) Pulse Ox O2 Delivery O2 Flow Rate FiO2 12/30/24 09:57 107 19 136/78 (97) 97 30 12/30/24 07:40 Mechanical Ventilator+ 12/30/24 06:00 99.1 210.4 Total Intake and Output 12/29/24 12/29/24 12/30/24 15:00 23:00 07:00 Intake Total 1788.14 ml 905.88 ml 1269.4 ml Output Total 3136 ml 1445 ml Balance 1788.14 ml -2230.12 ml -175.6 ml medications Current Medications Medications Dose Ordered Sig/Sherron Route Start Time Stop Time Status Last Admin Dose Admin Pantoprazole Sodium 40 mg DAILY IV 12/18/24 10:00 12/30/24 10:09 40 MG Midazolam HCl 50 ml @ 1 mls/hr Q24H IV 12/17/24 17:00 12/30/24 08:26 15 MLS/HR Valproate Sodium 250 mg/Sodium Chloride 52.5 ml @ 52.5 mls/hr BID IV 12/17/24 22:00 12/30/24 09:50 52.5 MLS/HR Propofol 100 ml @ 2.37 mls/hr Q24H IV 12/17/24 18:15 12/30/24 08:13 23.7 MLS/HR Fentanyl Citrate 250 ml @ 2.5 mls/hr Q24H IV 12/17/24 21:15 12/30/24 05:05 35 MLS/HR Norepinephrine Bitartrate 250 ml @ 3.75 mls/hr Q24H IV 12/18/24 01:45 12/20/24 00:01 30 MLS/HR Meropenem 50 ml @ 17 mls/hr Q8HR IV 12/18/24 22:00 12/30/24 04:54 17 MLS/HR Vancomycin HCl 0 ml @ 0 mls/hr UD IV 12/18/24 15:45 Enoxaparin Sodium 40 mg DAILY SC 12/19/24 10:00 Hold 12/26/24 09:15 40 MG Diagnostic Test (Pha) 1 strip Q6HR 12/20/24 18:00 12/30/24 05:27 1 STRIP Insulin Human Regular FOLLOW SLIDING SCALE Q6HR SC 12/20/24 18:00 12/28/24 12:10 2 UNITS Dextrose 50 ml UD IV 12/20/24 14:15 12/20/24 17:47 50 ML Acetaminophen 650 mg Q6HP PRN [place] 12/22/24 21:00 12/27/24 22:06 650 MG Sodium Chloride 40 meq/Potassium Chloride 40 meq/ Potassium Phosphate 11 meq/ Calcium Gluconate 2.3 meq/Magnesium Sulfate 8 meq/ Multivitamins 10 ml/Chromium/ Copper/Manganese/ Zinc 1 ml/Amino Acids/Dextrose/ Purified Water 1,450.4462 ml @ 60 mls/hr [id number] IV 12/26/24 22:00 12/27/24 21:59 Cancel Ipratropium [place] 0.5 mg Q6HR NEB 12/27/24 18:00 12/30/24 06:10 0.5 MG Levalbuterol HCl 1.25 mg Q6HR NEB 12/27/24 18:00 12/30/24 06:10 1.25 MG Amino Acids 0 ml @ 0 mls/hr PER PHARMACY IV 12/27/24 12:30 Sodium Chloride 10 ml QSHIFT@10,22 IV 12/27/24 22:00 12/30/24 10:09 10 ML Vancomycin HCl 300 ml @ 200 mls/hr Q10H IV 12/27/24 22:00 12/29/24 23:37 200 MLS/HR Furosemide 40 mg DAILY IV 12/29/24 10:45 12/30/24 09:50 40 MG Sodium Chloride 20 meq/Potassium Chloride 30 meq/ Potassium Phosphate 33 meq/ Calcium Gluconate 2.3 meq/Magnesium Sulfate 16 meq/ Multivitamins 10 ml/Chromium/ Copper/Manganese/ Zinc 1 ml/Amino Acids/Dextrose 1,197.4462 ml @ 50 mls/hr [id number] IV 12/29/24 22:00 12/30/24 21:59 12/29/24 22:17 50 MLS/HR Artificial Tears 1 drop Q6HP PRN EACHEYE 12/29/24 23:45 Micafungin Sodium 100 mg/Sodium Chloride 100 ml @ 100 mls/hr Q24H IV 12/30/24 09:45 laboratory and microbiology Laboratory Tests 12/30/24 04:47 12/29/24 10:05 12/29/24 03:28 Test 12/30/24 04:47 Range/Units Serum Glucose 96 # 74-106 mg/dL Problem List/Assessment/Plan Problem List/Assessment/Plan 12/26/24 PATIENT EXAMINED WITH HIS MOTHER IN ATTENDANCE. ABDOMEN IS TENSELY DISTENDED AND FIRM, CT NOW INDICATES ASCITES. i HAVE DISCUSSED WITH Dr.N COLEMAN AND SHE WILL PROCEED WITH SIGMOIDOSCOPY/COLONOSCOPY . HAVE EXPLAINED TO HIS MOTHER HE MAY NEED AN OPERATION TO RESECT ISCHEMIC COLON AND GIVE HIM A COLOSTOMY. WILL PROCEED DEPENDING OF RESULTS OF Dr. Teo COLEMAN'S FINDINGS 12/27/24 DR.N COLEMAN CALLED ME AFTER SHE PERFORMED A SIGMOIDOSCOPY ON THIS PATIENT DURING WHICH SHE EVACUATED 6 LITERS OF MURKY FLUID FROM THE PATIENT'S COLON AND SHE SUSPECTS THAT THERE MAY BE A PERFORATION , ON HER EXAMINATION SHE DID SEE EVIDENCE OF ISCHEMIA. AFTER A THOROUGH DISCUSSION WITH PATIENT'S MOTHER WE WILL PROCEED WITH EXPLORATORY LAPAROTOMY AND PROBABLE COLECTOMY WITH COLOSTOMY. EXPLAINED RISKS AND COMPLICATIONS TO PATIENT'S MOTHER. 12/28/24 abdomen soft, non distended, all 4 drains with serous drainage, clinically unchanged. WBC improved. 12/30/24 ADEQUATE URINE OUTPUT, ABDOMEN NON DISTENDED, SOFT, ALL 4 DRAINS WITH SERO SANGUINEOUS DRAINAGE. Plan discussed with: Other Dietary Evaluation Review Comments: 1. TF: Vital AF@50ml/hr (90g protein, 1440kcal 973 free water) meeting Protein needs 83%, energy needs 80%. 2. TPN per pharmacy meeting 75% of his needs if TF not feasible or NPO>7 days. 3. Diet as tolerated per [employer]OT[employer]TER eval when off Vent Expected Outcomes/Goals: Preventing catabolism HUMPHREY RUBIO MD Dec 30, 2024 10:17
[2024-12-30] MEDS ORDERED: LACTATED RINGER'S 1,000 ML IV ONE (10:45)
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
--- NOTE | 2024-12-30 11:47 | DVH ---
CHEST RADIOGRAPH Indication: ET PLACEMENT Technique: XY CHEST PORTABLE COMPARISON: 12/29/2024 FINDINGS: Endotracheal tube tip projects 3.8 cm above the natalie. Right PICC line tip projects over the SVC. Feeding tube projects towards stomach. Nasogastric tube projects towards stomach. The cardiac silhouette is enlarged. The lungs demonstrate bilateral patchy airspace opacities. The pu lmonary vasculature is prominent. Moderate left and small right pleural effusions.. There is no pneum othorax. IMPRESSION: As above
--- NOTE | 2024-12-30 13:35 | DVHPN2 ---
Progress Note - Dictate Date Seen: Dec 30, 2024 Has the PT tested + for MRSA If YES, has PT been informed?: No Medical Necessity Reason Pt with a Central, PICC or Fol: Yes The following are medically ne: Navarrete Catheter Reason for navarrete catheter: Strict I&O vital signs Vital Sign Date Time Temp Pulse Resp B/P (MAP) Pulse Ox O2 Delivery O2 Flow Rate FiO2 12/30/24 12:15 100.6 113 19 127/79 (95) 96 213.1 12/30/24 12:00 Mechanical Ventilator+ 30 30 Total Intake and Output 12/29/24 12/29/24 12/30/24 15:00 23:00 07:00 Intake Total 1788.14 ml 905.88 ml 1410.1 ml Output Total 3136 ml 1445 ml Balance 1788.14 ml -2230.12 ml -34.9 ml medications Current Medications Medications Dose Ordered Sig/Sherron Route Start Time Stop Time Status Last Admin Dose Admin Pantoprazole Sodium 40 mg DAILY IV 12/18/24 10:00 12/30/24 10:09 40 MG Midazolam HCl 50 ml @ 1 mls/hr Q24H IV 12/17/24 17:00 12/30/24 11:18 15 MLS/HR Valproate Sodium 250 mg/Sodium Chloride 52.5 ml @ 52.5 mls/hr BID IV 12/17/24 22:00 12/30/24 09:50 52.5 MLS/HR Propofol 100 ml @ 2.37 mls/hr Q24H IV 12/17/24 18:15 12/30/24 11:17 23.7 MLS/HR Fentanyl Citrate 250 ml @ 2.5 mls/hr Q24H IV 12/17/24 21:15 12/30/24 11:16 35 MLS/HR Norepinephrine Bitartrate 250 ml @ 3.75 mls/hr Q24H IV 12/18/24 01:45 12/20/24 00:01 30 MLS/HR Meropenem 50 ml @ 17 mls/hr Q8HR IV 12/18/24 22:00 12/30/24 04:54 17 MLS/HR Vancomycin HCl 0 ml @ 0 mls/hr UD IV 12/18/24 15:45 Enoxaparin Sodium 40 mg DAILY SC 12/19/24 10:00 Hold 12/26/24 09:15 40 MG Diagnostic Test (Pha) 1 strip Q6HR 12/20/24 18:00 12/30/24 12:09 1 STRIP Insulin Human Regular FOLLOW SLIDING SCALE Q6HR SC 12/20/24 18:00 12/28/24 12:10 2 UNITS Dextrose 50 ml UD IV 12/20/24 14:15 12/20/24 17:47 50 ML Acetaminophen 650 mg Q6HP PRN DC 12/22/24 21:00 12/30/24 10:47 650 MG Sodium Chloride 40 meq/Potassium Chloride 40 meq/ Potassium Phosphate 11 meq/ Calcium Gluconate 2.3 meq/Magnesium Sulfate 8 meq/ Multivitamins 10 ml/Chromium/ Copper/Manganese/ Zinc 1 ml/Amino Acids/Dextrose/ Purified Water 1,450.4462 ml @ 60 mls/hr [id number] IV 12/26/24 22:00 12/27/24 21:59 Cancel Ipratropium [place] 0.5 mg Q6HR NEB 12/27/24 18:00 12/30/24 11:35 0.5 MG Levalbuterol HCl 1.25 mg Q6HR NEB 12/27/24 18:00 12/30/24 11:35 1.25 MG Amino Acids 0 ml @ 0 mls/hr PER PHARMACY IV 12/27/24 12:30 Sodium Chloride 10 ml QSHIFT@10,22 IV 12/27/24 22:00 12/30/24 10:09 10 ML Vancomycin HCl 300 ml @ 200 mls/hr Q10H IV 12/27/24 22:00 12/30/24 11:21 200 MLS/HR Furosemide 40 mg DAILY IV 12/29/24 10:45 12/30/24 09:50 40 MG Sodium Chloride 20 meq/Potassium Chloride 30 meq/ Potassium Phosphate 33 meq/ Calcium Gluconate 2.3 meq/Magnesium Sulfate 16 meq/ Multivitamins 10 ml/Chromium/ Copper/Manganese/ Zinc 1 ml/Amino Acids/Dextrose 1,197.4462 ml @ 50 mls/hr [id number] IV 12/29/24 22:00 12/30/24 21:59 12/29/24 22:17 50 MLS/HR Artificial Tears 1 drop Q6HP PRN EACHEYE 12/29/24 23:45 Micafungin Sodium 100 mg/Sodium Chloride 100 ml @ 100 mls/hr Q24H IV 12/30/24 09:45 Sodium Chloride 20 meq/Potassium Chloride 40 meq/ Potassium Acetate 20 meq/Potassium Phosphate 11 meq/ Calcium Gluconate 2.3 meq/Magnesium Sulfate 20 meq/ Multivitamins 10 ml/Chromium/ Copper/Manganese/ Zinc 1 ml/Amino Acids/Dextrose 1,308.4462 ml @ 54 mls/hr [id number] IV 12/30/24 22:00 12/31/24 21:59 laboratory and microbiology Laboratory Tests 12/30/24 04:47 12/29/24 10:05 12/29/24 03:28 Test 12/30/24 04:47 Range/Units Serum Glucose 96 # 74-106 mg/dL Assessment/Plan Party Plan Sales Unit Advisor rounds Impression Acute hypoxemic respiratory failure Fluid overload Sepsis S/p ex lap Patient seen and examined in ICU Events On mechanical ventilation S/p intubation PEEP 8, FiO2 40% Thin secretions reported S/p ex lap [address] Scheduled to go back to the OR Labs and imaging reviewed Chest x-ray shows bilateral pleural effusions, greater on the left ABG reviewed Management Vent support Titrate to maintain sats 90% or above Sedation for vent synchrony Continue antibiotics F/u cultures Bronchodilators Monitor renal function Monitor electrolytes Supplement as needed Pressors as needed for hemodynamic support To maintain a mean arterial pressure of 65 mmHg F/u general surgery DVT prophylaxis Critical care time 35 minutes Dietary Evaluation Review Comments: 1. TF: Vital AF@50ml/hr (90g protein, 1440kcal 973 free water) meeting Protein needs 83%, energy needs 80%. 2. TPN per pharmacy meeting 75% of his needs if TF not feasible or NPO>7 days. 3. Diet as tolerated per MANAGEMENT SCIENTIST eval when off Vent Expected Outcomes/Goals: Preventing catabolism Plan discussed with: Other (Rn) RENARD VALVERDE MD Dec 30, 2024 13:35
[2024-12-30] MEDS: MICAFUNGIN SODIUM 100 MG in SODIUM CHL 0.9% 100 ML IV SCH (13:48)
[2024-12-30] MEDS: LACTATED RINGER'S 1,000 ML IV ONE (16:15)
--- NOTE | 2024-12-30 17:11 | DVHPN2 ---
Progress Note - Dictate Date Seen: Dec 30, 2024 Has the PT tested + for MRSA If YES, has PT been informed?: No Medical Necessity Reason Pt with a Central, PICC or Fol: Yes The following are medically ne: Navarrete Catheter Reason for navarrete catheter: Strict I&O Subjective Postop day 3. S/P expiratory laparotomy operative report findings noted Patient had a frozen abdomen with extensive exudates fibrosis, lysis of adhesions was performed but no clear-cut perforation was identified Pt is intubated and sedated There is also a Dobbhoff that is not being used . Currently drips are Versed 15, propofol 45, fentanyl 325, TPN 46. Continuing broad-spectrum antibiotics vancomycin/meropenem/micafungin. Blood culture grew VRE, patient will be started on IV Zyvox Patient has anasarca, albumin very low 2.5. Recent echo EF was normal and no abnormalities. Patient has history of drug abuse, suspect renal disease nephrotic or similar causing low protein state and/or liver disease. Patient will need albumin infusion. vital signs Vital Sign Date Time Temp Pulse Resp B/P (MAP) Pulse Ox O2 Delivery O2 Flow Rate FiO2 12/30/24 16:30 99.3 108 20 139/86 (103) 97 210.7 12/30/24 16:04 30 12/30/24 15:46 Mechanical Ventilator+ Total Intake and Output 12/29/24 12/29/24 12/30/24 15:00 23:00 07:00 Intake Total 1788.14 ml 905.88 ml 1410.1 ml Output Total 3136 ml 1445 ml Balance 1788.14 ml -2230.12 ml -34.9 ml medications Current Medications Medications Dose Ordered Sig/Sherron Route Start Time Stop Time Status Last Admin Dose Admin Pantoprazole Sodium 40 mg DAILY IV 12/18/24 10:00 12/30/24 10:09 40 MG Midazolam HCl 50 ml @ 1 mls/hr Q24H IV 12/17/24 17:00 12/30/24 15:50 15 MLS/HR Valproate Sodium 250 mg/Sodium Chloride 52.5 ml @ 52.5 mls/hr BID IV 12/17/24 22:00 12/30/24 09:50 52.5 MLS/HR Propofol 100 ml @ 2.37 mls/hr Q24H IV 12/17/24 18:15 12/30/24 14:33 23.7 MLS/HR Fentanyl Citrate 250 ml @ 2.5 mls/hr Q24H IV 12/17/24 21:15 12/30/24 11:16 35 MLS/HR Norepinephrine Bitartrate 250 ml @ 3.75 mls/hr Q24H IV 12/18/24 01:45 12/20/24 00:01 30 MLS/HR Meropenem 50 ml @ 17 mls/hr Q8HR IV 12/18/24 22:00 12/30/24 14:47 17 MLS/HR Enoxaparin Sodium 40 mg DAILY SC 12/19/24 10:00 Hold 12/26/24 09:15 40 MG Diagnostic Test (Pha) 1 strip Q6HR 12/20/24 18:00 12/30/24 12:09 1 STRIP Insulin Human Regular FOLLOW SLIDING SCALE Q6HR SC 12/20/24 18:00 12/28/24 12:10 2 UNITS Dextrose 50 ml UD IV 12/20/24 14:15 12/20/24 17:47 50 ML Acetaminophen 650 mg Q6HP PRN IA 12/22/24 21:00 12/30/24 10:47 650 MG Sodium Chloride 40 meq/Potassium Chloride 40 meq/ Potassium Phosphate 11 meq/ Calcium Gluconate 2.3 meq/Magnesium Sulfate 8 meq/ Multivitamins 10 ml/Chromium/ Copper/Manganese/ Zinc 1 ml/Amino Acids/Dextrose/ Purified Water 1,450.4462 ml @ 60 mls/hr [id number] IV 12/26/24 22:00 12/27/24 21:59 Cancel Ipratropium [place] 0.5 mg Q6HR NEB 12/27/24 18:00 12/30/24 11:35 0.5 MG Levalbuterol HCl 1.25 mg Q6HR NEB 12/27/24 18:00 12/30/24 11:35 1.25 MG Amino Acids 0 ml @ 0 mls/hr PER PHARMACY IV 12/27/24 12:30 Sodium Chloride 10 ml QSHIFT@10,22 IV 12/27/24 22:00 12/30/24 10:09 10 ML Furosemide 40 mg DAILY IV 12/29/24 10:45 12/30/24 09:50 40 MG Sodium Chloride 20 meq/Potassium Chloride 30 meq/ Potassium Phosphate 33 meq/ Calcium Gluconate 2.3 meq/Magnesium Sulfate 16 meq/ Multivitamins 10 ml/Chromium/ Copper/Manganese/ Zinc 1 ml/Amino Acids/Dextrose 1,197.4462 ml @ 50 mls/hr [id number] IV 12/29/24 22:00 12/30/24 21:59 12/29/24 22:17 50 MLS/HR Artificial Tears 1 drop Q6HP PRN EACHEYE 12/29/24 23:45 Micafungin Sodium 100 mg/Sodium Chloride 100 ml @ 100 mls/hr Q24H IV 12/30/24 09:45 12/30/24 13:48 100 MLS/HR Sodium Chloride 20 meq/Potassium Chloride 40 meq/ Potassium Acetate 20 meq/Potassium Phosphate 11 meq/ Calcium Gluconate 2.3 meq/Magnesium Sulfate 20 meq/ Multivitamins 10 ml/Chromium/ Copper/Manganese/ Zinc 1 ml/Amino Acids/Dextrose 1,308.4462 ml @ 54 mls/hr [id number] IV 12/30/24 22:00 12/31/24 21:59 Linezolid 300 ml @ 150 mls/hr Q12HR IV 12/30/24 22:00 Future hold objective General Appearance: Other (Fully intubated) HEENT: Atraumatic, PERRLA, EOMI, Mucous membr. moist/pink Respiratory: Normal air movement, Other (On ventilator) Cardiovascular: Regular rate, Normal S1, Normal S2, No murmurs Abdominal: Binder in place, soft, distended, no bowel sounds Extremities: No clubbing, No cyanosis, No edema, Normal pulses, No tenderness/swelling Skin: No rashes, No breakdown, No significant lesion Neuro: Normal speech, Normal tone, Sensation intact, Cranial nerves 3-12 NL, Reflexes 2+, Other (Generalized weakness) Psych/Mental Status: Mood NL, Other (Altered mental status) Rectal exam, normal tone no obstipation rectal mass or obstruction noted and no stool in the rectum laboratory and microbiology Laboratory Tests 12/30/24 04:47 12/29/24 10:05 12/29/24 03:28 Test 12/30/24 04:47 Range/Units Serum Glucose 96 # 74-106 mg/dL Problems(with codes): (1) Neuropathy involving both lower extremities (2) Constipation (3) Generalized weakness (4) Leukocytosis (5) Abnormal finding on GI tract imaging (6) Leukocytosis, unspecified (7) Abdominal pain Prognosis Plan Continue IV antibiotics IV TPN Keep this patient NPO for now Surgical consult appreciated and is following patient Prognosis remains guarded We will continued conservative management Surgical consult to decide about any repeat laparotomy with loop ileostomy or loop colostomy which I believe the patient will likely need Dietary Evaluation Review Comments: 1. TF: Vital AF@50ml/hr (90g protein, 1440kcal 973 free water) meeting Protein needs 83%, energy needs 80%. 2. TPN per pharmacy meeting 75% of his needs if TF not feasible or NPO>7 days. 3. Diet as tolerated per [employer] eval when off Vent Expected Outcomes/Goals: Preventing catabolism Plan discussed with: Other (None) MAO COLEMAN MD Dec 30, 2024 17:11
[2024-12-30] MEDS: POTASSIUM CHLORIDE IV NR (21:45)
[2024-12-30] MEDS: SODIUM CHLORIDE IV NR (21:45)
[2024-12-30] MEDS: POTASSIUM ACETATE IV NR (21:45)
[2024-12-30] MEDS: [UNRECOGNIZED DRUG - OTHER] IV NR (21:45)
[2024-12-30] MEDS: LINEZOLID 600MG/300ML 300 ML IV SCH (23:47)
[2024-12-31] VITALS (105 sets, daily range): BP systolic 93–153; BP diastolic 45–100; PULSE 90–121; RESP 16–33; TEMP 94.5–100.4; O2SAT 92–100
[2024-12-31 04:26] LABS: Hematocrit 25.1 % (41.0-53.0); Hemoglobin 8.3 g/dL (13.5-17.5); Mean Corpuscular Hemoglobin 29.8 pg (28.0-32.0); Mean Corpuscular Volume 90.3 fL (80.0-100.0)
[2024-12-31 04:34] LABS: Alanine Aminotransferase 10 U/L (7-40); Alkaline Phosphatase 92 U/L (46-116); Anion Gap 7 (5-15); BUN/Creatinine Ratio 42.9 (10.0-20.0); Blood Urea Nitrogen 12 mg/dL (9-23); Chloride 100 mmol/L (98-107); Magnesium 1.8 mg/dL (1.6-2.6); Sodium 138 mmol/L (136-145)
[2024-12-31 04:35] LABS: Bilirubin, Total 0.5 mg/dL (0.2-1.0)
[2024-12-31 04:40] LABS: Albumin 2.5 g/dL (3.2-4.8); Calcium 7.6 mg/dL (8.7-10.4); Carbon Dioxide 31 mmol/L (20-31); Glucose 114 mg/dL (74-106); Potassium 3.4 mmol/L (3.5-5.1); Total Protein 4.8 g/dL (5.7-8.2)
--- NOTE | 2024-12-31 04:44 | DVH ---
CHEST RADIOGRAPH Indication: INTUBATED Technique: Single frontal view of the chest was obtained COMPARISON: XY CHEST PORTABLE on DOS: 12/30/24, XY CHEST XRAY 1 VIEW on DOS: 12/29/24, XY CHEST XRAY 1 VIEW on DOS: 12/28/24, XY CHEST PORTABLE on DOS: 12/27/24, XY CHEST PORTABLE on DOS: 12/27/24 FINDINGS: Lines and Tubes: Unchanged. Lungs: Grossly stable appearing bilateral pleural effusions and right basilar pulmonary airspace dise ase and atelectasis. No pneumothorax. Cardiomediastinal contours: Cardiomegaly. Bones: Unremarkable IMPRESSION: 1. Stable appearing bilateral pleural effusions, right basilar pulmonary airspace disease and cardiom egaly. 2. Lines and tubes unchanged.
[2024-12-31 05:14] LABS: Total Cells Counted 100.0 (100)
[2024-12-31] MEDS: POTASSIUM CHL 20MEQ/100ML 100 ML IV ONE (07:48)
[2024-12-31] MEDS: MAGNESIUM SULFATE 1GM/100ML 100 ML IV ONE (09:43)
[2024-12-31 10:05] LABS: Base Excess 7.2 mmol/L (-2.0-3.0)
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
[2024-12-31] MEDS: MEROPENEM 1GM IVPB 50 ML IV SCH (14:34)
[2024-12-31] MEDS: ENOXAPARIN SOD 40 MG/0.4 ML SYRINGE SC SCH (14:35)
[2024-12-31] MEDS: KETOROLAC TROMETH 30 MG/ML 1ML VIAL IV ONE (14:35)
[2024-12-31] MEDS: ACETAMINOPHEN IV 1000 MG/100ML (10MG/ML) IV ONE (14:42)
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
[2024-12-31] MEDS: IOHEXOL 300 MG/ML 100ML BOTTLE IJ ONE ×2 (17:29→17:36)
--- NOTE | 2024-12-31 18:37 | DVH ---
Indication: abdominal infection Technique: CT axial images of the abdomen and pelvis are obtained with and without intravenous contra st. Coronal and sagittal reformats were obtained. Radiation Dose Information: CTDI volume is 25.23 mGy. Dose-length product is 2942.93 mGy*cm Comparison: CT CT ABD PELVIS W CON-ORAL IV on DOS: 12/20/24 FINDINGS: Moderate to large left and small right pleural effusions. Bibasilar consolidation, atelectasis. Adrenal glands unremarkable. Perisplenic rim enhancing encapsulated collection extending into the left paracolic gutter. Pancreas unremarkable. No enhancing hepatic lesion. No CT evidence for cholelithiasis. Kidneys demonstrate no hydronephrosis. Nasogastric tube projects towards stomach. Feeding tube projects towards the 2nd segment of the duod enum. There is a clip/radiopaque density in the 3rd segment of the duodenum. The small bowel loops are relatively nondistended. Rectal catheter. Contrast extending to the distal descending colon. Moderate distention of the large bowel loops. Colonic mucosal hyperemia, wall thickening. In comparison to the previous collection, there multiple loculated collections within the abdomen now which demonstrate rim enhancement. Occludes large perisplenic collection extending to the left abdom en and pelvis,m measuring 34 by 24 cm. The rim enhancing collection within the pelvis measures at chris st 13 by 8.9 cm. Right abdominal collection measuring 3.8 x 1.3 x 13.7 cm which likely also communica demetrio with the pelvic and left lateral abdominal collections. Surgical drain in the right lateral lower abdomen. Surgical drain in the right lateral abdomen. Surg ical drain within the lower abdominal/ pelvic collection. Mesenteric edema. Multiple other smaller mesenteric loculated collections Abdominal aorta normal in caliber. Retroperitoneal lymphadenopathy measuring up to 15 mm. Soft tissue edema/ anasarca. Presacral edema. Left femur intramedullary daily. Ventral wall abdominal defect. IMPRESSION: Large rim enhancing fluid collection within the left abdomen extending into the pelvis measuring 34 x 24 cm consistent with abscess and peritonitis. Mesenteric edema with multiple other smaller developing loculated collections in the central mesenter y. Right abdominal rim enhancing collection measuring 3 3.8 x 1.3 x 13.7 cm Bibasilar pulmonary atelectasis and consolidation. Moderate to large left and small right pleural eff usions. Colonic mucosal hyperemia and wall thickening may represent colitis. Soft tissue edema/ anasarca. Retroperitoneal lymphadenopathy. Other findings as described.
[2024-12-31] MEDS: TPN PER PHARMACY IV NR (21:35)
[2025-01-01] VITALS (106 sets, daily range): BP systolic 100–163; BP diastolic 60–101; PULSE 94–126; RESP 16–30; TEMP 97.5–101.3; O2SAT 90–100
[2025-01-01 03:59] LABS: Hematocrit 27.1 % (41.0-53.0); Hemoglobin 9.1 g/dL (13.5-17.5); Nucleated Red Blood Cells % 0.1 %
[2025-01-01 04:03] LABS: Alanine Aminotransferase 11 U/L (7-40); Alkaline Phosphatase 110 U/L (46-116); Anion Gap 5 (5-15); BUN/Creatinine Ratio 42.4 (10.0-20.0); Bilirubin, Total 0.7 mg/dL (0.2-1.0); Blood Urea Nitrogen 14 mg/dL (9-23); Chloride 99 mmol/L (98-107); Magnesium 1.9 mg/dL (1.6-2.6); Potassium 3.9 mmol/L (3.5-5.1)
[2025-01-01 04:07] LABS: Mean Corpuscular Hemoglobin 30.1 pg (28.0-32.0); Mean Corpuscular Volume 89.4 fL (80.0-100.0)
[2025-01-01 04:28] LABS: Albumin 2.9 g/dL (3.2-4.8); Calcium 7.9 mg/dL (8.7-10.4); Carbon Dioxide 31 mmol/L (20-31); Glucose 116 mg/dL (74-106); Sodium 135 mmol/L (136-145); Total Protein 5.6 g/dL (5.7-8.2)
--- NOTE | 2025-01-01 06:00 | DVH ---
CHEST RADIOGRAPH Indication: INTUBATED Technique: Single frontal view of the chest was obtained COMPARISON: XY CHEST PORTABLE on DOS: 12/31/24, XY CHEST PORTABLE on DOS: 12/30/24, XY CHEST XRAY 1 VIE W on DOS: 12/29/24, XY CHEST XRAY 1 VIEW on DOS: 12/28/24, XY CHEST PORTABLE on DOS: 12/27/24 FINDINGS: Lines and Tubes: Endotracheal tube, enteric catheter and right PICC in satisfactory position. Lungs: Severe multifocal airspace disease. Pleura: Small bilateral pleural effusions No pneumothorax. Cardiomediastinal contours: Cardiomegaly Bones: Unremarkable IMPRESSION: Lines and tubes in satisfactory position. No significant interval change.
[2025-01-01 07:25] LABS: Base Excess 6.3 mmol/L (-2.0-3.0)
--- NOTE | 2025-01-01 10:51 | DVH ---
LEFT Upper Extremity Venous Duplex Clinical History: rule out thrombosis Comparison: None Technique: Duplex Doppler evaluation of the venous system of the LEFT lower neck and upper extremity including color Doppler and spectral/pulsed waveform analysis was performed. Findings: The internal jugular vein demonstrates appropriate compressibility and waveform variability. The subclavian vein is patent on color Doppler evaluation without intraluminal thrombus and demonstra demetrio waveform variability. The visualized portion of the brachiocephalic vein is patent on color Doppler evaluation without intr aluminal thrombus and demonstrates waveform variability. The axillary vein demonstrates appropriate compressibility and waveform variability. The brachial veins demonstrate appropriate compressibility and patency on Doppler evaluation. The basilic vein demonstrates intraluminal thrombus and noncompressibility. The cephalic vein demonstrates intraluminal thrombus and noncompressibility. Impression: No left upper extremity DVT. Thrombus is present in the left basilic vein and cephalic vein. Findings discussed with KELSEY BRIGGS at 01/01/2025 10:48 AM, and acknowledged receipt and understanding of the findings.
[2025-01-01] MEDS: LIDOCAINE 2% (LOCAL ANESTH.) PF 5ml SDV ONE (11:55)
--- NOTE | 2025-01-01 12:38 | DVHPN2 ---
Progress Note Date Seen: Jan 01, 2025 Has the PT tested + for MRSA If YES, has PT been informed?: No Medical Necessity Reason Pt with a Central, PICC or Fol: Yes The following are medically ne: Navarrete Catheter Reason for navarrete catheter: Strict I&O Objective vital signs Vital Sign Date Time Temp Pulse Resp B/P (MAP) Pulse Ox O2 Delivery O2 Flow Rate FiO2 01/01/25 11:43 129/75 01/01/25 11:38 96 19 98 30 01/01/25 10:30 97.7 207.9 01/01/25 08:00 Mechanical Ventilator+ Total Intake and Output 12/31/24 12/31/24 01/01/25 15:00 23:00 07:00 Intake Total 1572.1 ml 1206.6 ml 1444.6 ml Output Total 4270 ml 1460 ml Balance 1572.1 ml -3063.4 ml -15.4 ml medications Current Medications Medications Dose Ordered Sig/Sherron Route Start Time Stop Time Status Last Admin Dose Admin Pantoprazole Sodium 40 mg DAILY IV 12/18/24 10:00 01/01/25 10:01 40 MG Midazolam HCl 50 ml @ 1 mls/hr Q24H IV 12/17/24 17:00 01/01/25 11:43 15 MLS/HR Valproate Sodium 250 mg/Sodium Chloride 52.5 ml @ 52.5 mls/hr BID IV 12/17/24 22:00 01/01/25 10:27 52.5 MLS/HR Propofol 100 ml @ 2.37 mls/hr Q24H IV 12/17/24 18:15 01/01/25 10:33 23.7 MLS/HR Fentanyl Citrate 250 ml @ 2.5 mls/hr Q24H IV 12/17/24 21:15 12/31/24 23:54 32.5 MLS/HR Norepinephrine Bitartrate 250 ml @ 3.75 mls/hr Q24H IV 12/18/24 01:45 12/20/24 00:01 30 MLS/HR Diagnostic Test (Pha) 1 strip Q6HR 12/20/24 18:00 01/01/25 05:47 1 STRIP Insulin Human Regular FOLLOW SLIDING SCALE Q6HR SC 12/20/24 18:00 12/28/24 12:10 2 UNITS Dextrose 50 ml UD IV 12/20/24 14:15 12/20/24 17:47 50 ML Acetaminophen 650 mg Q6HP PRN SD 12/22/24 21:00 01/01/25 02:07 650 MG Sodium Chloride 40 meq/Potassium Chloride 40 meq/ Potassium Phosphate 11 meq/ Calcium Gluconate 2.3 meq/Magnesium Sulfate 8 meq/ Multivitamins 10 ml/Chromium/ Copper/Manganese/ Zinc 1 ml/Amino Acids/Dextrose/ Purified Water 1,450.4462 ml @ 60 mls/hr [id number] IV 12/26/24 22:00 12/27/24 21:59 Cancel Ipratropium Brixey 0.5 mg Q6HR NEB 12/27/24 18:00 01/01/25 11:38 0.5 MG Levalbuterol HCl 1.25 mg Q6HR NEB 12/27/24 18:00 01/01/25 11:38 1.25 MG Amino Acids 0 ml @ 0 mls/hr PER PHARMACY IV 12/27/24 12:30 Sodium Chloride 10 ml QSHIFT@10,22 IV 12/27/24 22:00 01/01/25 10:01 10 ML Furosemide 40 mg DAILY IV 12/29/24 10:45 01/01/25 10:01 40 MG Artificial Tears 1 drop Q6HP PRN EACHEYE 12/29/24 23:45 Micafungin Sodium 100 mg/Sodium Chloride 100 ml @ 100 mls/hr Q24H IV 12/30/24 09:45 01/01/25 10:00 100 MLS/HR Linezolid 300 ml @ 150 mls/hr Q12HR IV 12/30/24 22:00 01/01/25 10:01 150 MLS/HR Meropenem 50 ml @ 17 mls/hr Q8HR IV 12/31/24 14:00 01/01/25 05:42 17 MLS/HR Sodium Chloride 30 meq/Sodium Phosphate 10 meq/ Potassium Chloride 60 meq/ Calcium Gluconate 4.65 meq/ Magnesium Sulfate 22 meq/ Multivitamins 10 ml/Chromium/ Copper/Manganese/ Zinc 1 ml/Amino Acids/Dextrose/ Purified Water 1,566.5 ml @ 65 mls/hr Q24H6M IV 12/31/24 22:00 01/01/25 21:59 12/31/24 21:35 65 MLS/HR Enoxaparin Sodium 40 mg DAILY SC 12/31/24 14:00 01/01/25 10:02 40 MG Sodium Chloride 60 meq/Sodium Phosphate 10 meq/ Potassium Chloride 60 meq/ Calcium Gluconate 4.65 meq/ Magnesium Sulfate 24 meq/ Multivitamins 10 ml/Chromium/ Copper/Manganese/ Zinc 1 ml/Amino Acids/Dextrose/ Purified Water 1,574.5 ml @ 66 mls/hr [id number] IV 01/01/25 22:00 01/02/25 21:59 laboratory and microbiology Laboratory Tests 01/01/25 03:22 Test 01/01/25 03:22 Range/Units Serum Glucose 116 H 74-106 mg/dL Problem List/Assessment/Plan Problem List/Assessment/Plan 12/26/24 PATIENT EXAMINED WITH HIS MOTHER IN ATTENDANCE. ABDOMEN IS TENSELY DISTENDED AND FIRM, CT NOW INDICATES ASCITES. i HAVE DISCUSSED WITH Dr.N COLEMAN AND SHE WILL PROCEED WITH SIGMOIDOSCOPY/COLONOSCOPY . HAVE EXPLAINED TO HIS MOTHER HE MAY NEED AN OPERATION TO RESECT ISCHEMIC COLON AND GIVE HIM A COLOSTOMY. WILL PROCEED DEPENDING OF RESULTS OF Dr. Teo COLEMAN'S FINDINGS 12/27/24 DR.N COLEMAN CALLED ME AFTER SHE PERFORMED A SIGMOIDOSCOPY ON THIS PATIENT DURING WHICH SHE EVACUATED 6 LITERS OF MURKY FLUID FROM THE PATIENT'S COLON AND SHE SUSPECTS THAT THERE MAY BE A PERFORATION , ON HER EXAMINATION SHE DID SEE EVIDENCE OF ISCHEMIA. AFTER A THOROUGH DISCUSSION WITH PATIENT'S MOTHER WE WILL PROCEED WITH EXPLORATORY LAPAROTOMY AND PROBABLE COLECTOMY WITH COLOSTOMY. EXPLAINED RISKS AND COMPLICATIONS TO PATIENT'S MOTHER. 12/28/24 abdomen soft, non distended, all 4 drains with serous drainage, clinically unchanged. WBC improved. 12/30/24 ADEQUATE URINE OUTPUT, ABDOMEN NON DISTENDED, SOFT, ALL 4 DRAINS WITH SERO SANGUINEOUS DRAINAGE. 01/01/25 left pleural fluid aspirated by radiologist somewhat cloudy appearing, cultures sent. abdominal fluid aspirated is clear (probably irrigation) fluid, continues with leukocytosis. Plan discussed with: Other Dietary Evaluation Review Comments: 1. TF: Vital AF@50ml/hr (90g protein, 1440kcal 973 free water) meeting Protein needs 83%, energy needs 80%. 2. TPN per pharmacy meeting 75% of his needs if TF not feasible or NPO>7 days. 3. Diet as tolerated per HEAD START DIRECTOR eval when off Vent Expected Outcomes/Goals: Preventing catabolism HUMPHREY RUBIO MD Jan 01, 2025 12:38
--- NOTE | 2025-01-01 12:46 | DVH ---
CHEST RADIOGRAPH Indication: SP THORACENTESIS Technique: Single frontal view of the chest was obtained COMPARISON: XY CHEST XRAY 1 VIEW on DOS: 01/01/25, XY CHEST PORTABLE on DOS: 12/31/24, XY CHEST PORTABL E on DOS: 12/30/24, XY CHEST XRAY 1 VIEW on DOS: 12/29/24, XY CHEST XRAY 1 VIEW on DOS: 12/28/24 FINDINGS: Lines and Tubes: Endotracheal tube, enteric catheter and right PICC in satisfactory position Lungs: Multifocal airspace disease. Pleura: No effusion. No pneumothorax. Cardiomediastinal contours: Unremarkable Bones: Unremarkable IMPRESSION: No appreciable pneumothorax.
--- NOTE | 2025-01-01 13:24 | DVH ---
PROCEDURE: Ultrasound-guided thoracentesis Procedural Personnel Attending physician(s): Lalit Briggs Fellow physician(s): None Resident physician(s): None A dvanced practice provider(s): None Pre-procedure diagnosis: Dyspnea Post-procedure diagnosis: Same Indication: Diagnostic and therapeutic Additional clinical history: None Complications: No immediate complications. IMPRESSION: Ultrasound-guided thoracentesis with drainage of 1050 mL of serosanguinous fluid. Plan: Resume care by clinical team. Fluid analysis pending. PROCEDURE SUMMARY: - Ultrasound-guided thoracentesis - Additional procedure(s): None PROCEDURE DETAILS: Pre-procedure Consent: Informed consent for the procedure including risks, benefits and alternatives was obtained and time-out was performed prior to the procedure. Preparation: The site was prepared an d draped using maximal sterile barrier technique including cutaneous antisepsis. Anesthesia/sedation level of anesthesia/sedation: No sedation Anesthesia/sedation administered by: Not applicable Total intra-service sedation time (minutes): Not applicable Limited thoracic ultrasound Limited thoracic ultrasound was performed. Left hemithorax findings: Large pleural effusion Right hemithorax findings: Not investigated Thoracentesis Local anesthesia was administered. A safe window for thoracentesis was identified with ultrasound. Th e pleural space was accessed and fluid return confirmed position. The fluid was drained. The catheter was removed and a sterile dressing was applied. Catheter size (Fr):5 Catheter valve: Yes Fluid appearance: serosanguinous Volume drained (mL): 1050 Post-drainage ultrasound: No significant effusion Additional Details Additional description of procedure: None Registry event: V/3/f Device used: None Equipment details: None Specimens removed: Aspirated fluid was sent for analysis. Estimated blood loss (mL): Less than 10 Standardized report: [email or web address] Attestation Signer name: Lalit Briggs I attest that I was present for the entire procedure. I reviewed the stored images and agree with the report as written.
--- NOTE | 2025-01-01 13:30 | DVH ---
PROCEDURE: Drainage catheter placement Procedural Personnel Attending physician(s): Lalit Briggs Fellow physician(s): None Resident physician(s): None Advanced practice provider(s): None Pre-procedure diagnosis: Loculated ascites Post-procedure diagnosis: Same Indication: Post-operative fluid collection Additional clinical history: None Complications: No immediate complications. IMPRESSION: Percutaneous placement of a 10.2 bangladeshi drainage catheter into the left paracolic gutter, yielding 30 mL of serous fluid. Plan: Fluid analysis pending. PROCEDURE SUMMARY: - Intraperitoneal drainage catheter placement under ultrasound guidance - Additional procedure(s): None PROCEDURE DETAILS: Pre-procedure Consent: Informed consent for the procedure including risks, benefits and alternatives was obtained a nd time-out was performed prior to the procedure. Preparation: The site was prepared and draped using maximal sterile barrier technique including cutan eous antisepsis. Anesthesia/sedation Level of anesthesia/sedation: No sedation Anesthesia/sedation administered by: Not applicable Total intra-service sedation time (minutes): 0 Drainage catheter placement The patient was positioned supine. Initial imaging was performed. Local anesthesia was administered. The fluid collection was accessed using an access needle followed by wire insertion and serial dilati on and a drainage catheter was placed. Position of the drainage catheter within the fluid collection was confirmed. Initial imaging findings: Loculated left hemiabdominal fluid collection Access route: Percutaneous Drainage catheter placed: Multipurpose drain Drain size (Fr): 10.2 External catheter securement: Non-absorbable suture and adhesive anchoring device Drainage catheter contrast injection: No Final imaging findings: Partial drainage of the fluid collection Contrast Contrast agent: None Contrast volume (mL): 0 Additional Details Additional description of procedure: None Registry event: V/3/f Device used: None Equipment details: None Specimens removed: 30 mL of serous fluid. Aspirated fluid was sent for analysis. Estimated blood loss (mL): Less than 10 Standardized report: [email or web address] Attestation Signer name: Lalit Briggs I attest that I was present for the entire procedure. I reviewed the stored images and agree with the report as written.
[2025-01-01] MEDS: ACETAMINOPHEN IV 1000 MG/100ML (10MG/ML) IV ONE (17:13)
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
[2025-01-01] MEDS: TPN PER PHARMACY IV NR (21:53)
[2025-01-02] VITALS (107 sets, daily range): BP systolic 104–143; BP diastolic 62–103; PULSE 88–123; RESP 17–30; TEMP 96.4–101.1; O2SAT 95–100
[2025-01-02 04:18] LABS: Hematocrit 26.0 % (41.0-53.0); Hemoglobin 8.8 g/dL (13.5-17.5); Mean Corpuscular Hemoglobin 30.2 pg (28.0-32.0); Mean Corpuscular Volume 89.1 fL (80.0-100.0); Nucleated Red Blood Cells % 0.0 %
[2025-01-02 04:20] LABS: Alkaline Phosphatase 100 U/L (46-116); Anion Gap 6 (5-15); BUN/Creatinine Ratio 38.7 (10.0-20.0); Blood Urea Nitrogen 12 mg/dL (9-23); Carbon Dioxide 32 mmol/L (20-31); Chloride 98 mmol/L (98-107); Glucose 112 mg/dL (74-106); Magnesium 2.0 mg/dL (1.6-2.6); Potassium 3.4 mmol/L (3.5-5.1); Sodium 136 mmol/L (136-145)
[2025-01-02 04:21] LABS: Alanine Aminotransferase < 9 U/L (7-40); Albumin 2.8 g/dL (3.2-4.8); Calcium 8.0 mg/dL (8.7-10.4); Total Protein 5.6 g/dL (5.7-8.2)
[2025-01-02 04:22] LABS: Bilirubin, Total 0.6 mg/dL (0.2-1.0)
--- NOTE | 2025-01-02 05:11 | DVH ---
CHEST RADIOGRAPH Indication: intubated Technique: Single frontal view of the chest was obtained COMPARISON: XY CHEST XRAY 1 VIEW on DOS: 01/01/25, XY CHEST XRAY 1 VIEW on DOS: 01/01/25, XY CHEST PORT ABLE on DOS: 12/31/24, XY CHEST PORTABLE on DOS: 12/30/24, XY CHEST XRAY 1 VIEW on DOS: 12/29/24 FINDINGS: Lines and Tubes: Lines and tubes unchanged. Lungs: Stable small bilateral pleural effusions and bibasilar pulmonary airspace disease with persist ent diffuse increased prominence of the pulmonary vasculature. No pneumothorax. Cardiomediastinal contours: Unremarkable Bones: Unremarkable IMPRESSION: 1. Stable small bilateral pleural effusions, Bibasilar pulmonary airspace disease and diffuse increas ed prominence of the pulmonary vasculature. 2. Remaining lines and tubes unchanged.
[2025-01-02] MEDS: POTASSIUM CHL 20MEQ/100ML 100 ML IV ONE (05:36)
[2025-01-02 06:55] LABS: Base Excess 8.8 mmol/L (-2.0-3.0)
--- NOTE | 2025-01-02 11:19 | DVH ---
XY GASTROGRAFIN ENEMA SINGLE CON HISTORY: r/o colon perf COMPARISON: 12/31/24 FINDINGS: A frontal projection of the abdomen was obtained as a warper fixer film. Contrast was seen in the entire col on to the sigmoid. No contrast seen in the rectum. Enteric tubes and surgical drains are visualized i n the abdomen. Contrast was introduced in a retrograde fashion and multiple portable films were then obtained. Contrast seen in the colon from prior SBFT appears unremarkable. Retrograde contrast in the rectum ap pears unremarkable. No contrast extravasation seen. IMPRESSION: No extravasation of contrast seen from the colon (previously from the prior SBFT) or from the rectum via retrograde from a rectal tube. Part of the sigmoid was nonopacified with contrast. Consider [place] w up KUB in 1 day.
[2025-01-02] MEDS ORDERED: ACETAMINOPHEN IV 1000 MG/100ML (10MG/ML) IV PRN (12:45)
--- NOTE | 2025-01-02 12:57 | DVHPN2 ---
Progress Note Date Seen: Jan 02, 2025 Has the PT tested + for MRSA If YES, has PT been informed?: No Medical Necessity Reason Pt with a Central, PICC or Fol: Yes The following are medically ne: Navarrete Catheter Reason for navarrete catheter: Strict I&O Objective vital signs Vital Sign Date Time Temp Pulse Resp B/P (MAP) Pulse Ox O2 Delivery O2 Flow Rate FiO2 01/02/25 11:38 133/92 01/02/25 11:15 99.9 110 24 97 211.8 01/02/25 10:13 30 01/02/25 10:00 Mechanical Ventilator+ Total Intake and Output 01/01/25 01/01/25 01/02/25 15:00 23:00 07:00 Intake Total 1264.1 ml 1154.1 ml 1467.6 ml Output Total 5175 ml 2575 ml Balance 1264.1 ml -4020.9 ml -1107.4 ml medications Current Medications Medications Dose Ordered Sig/Sherron Route Start Time Stop Time Status Last Admin Dose Admin Pantoprazole Sodium 40 mg DAILY IV 12/18/24 10:00 01/02/25 09:57 40 MG Midazolam HCl 50 ml @ 1 mls/hr Q24H IV 12/17/24 17:00 01/02/25 11:04 15 MLS/HR Valproate Sodium 250 mg/Sodium Chloride 52.5 ml @ 52.5 mls/hr BID IV 12/17/24 22:00 01/02/25 09:54 52.5 MLS/HR Propofol 100 ml @ 2.37 mls/hr Q24H IV 12/17/24 18:15 01/02/25 11:38 23.7 MLS/HR Fentanyl Citrate 250 ml @ 2.5 mls/hr Q24H IV 12/17/24 21:15 01/02/25 09:39 35 MLS/HR Norepinephrine Bitartrate 250 ml @ 3.75 mls/hr Q24H IV 12/18/24 01:45 12/20/24 00:01 30 MLS/HR Diagnostic Test (Pha) 1 strip Q6HR 12/20/24 18:00 01/02/25 11:41 1 STRIP Insulin Human Regular FOLLOW SLIDING SCALE Q6HR SC 12/20/24 18:00 01/02/25 00:12 2 UNITS Dextrose 50 ml UD IV 12/20/24 14:15 12/20/24 17:47 50 ML Acetaminophen 650 mg Q6HP PRN SC 12/22/24 21:00 01/01/25 02:07 650 MG Sodium Chloride 40 meq/Potassium Chloride 40 meq/ Potassium Phosphate 11 meq/ Calcium Gluconate 2.3 meq/Magnesium Sulfate 8 meq/ Multivitamins 10 ml/Chromium/ Copper/Manganese/ Zinc 1 ml/Amino Acids/Dextrose/ Purified Water 1,450.4462 ml @ 60 mls/hr [id number] IV 12/26/24 22:00 12/27/24 21:59 Cancel Ipratropium [place] 0.5 mg Q6HR NEB 12/27/24 18:00 01/02/25 06:29 0.5 MG Levalbuterol HCl 1.25 mg Q6HR NEB 12/27/24 18:00 01/02/25 06:29 1.25 MG Amino Acids 0 ml @ 0 mls/hr PER PHARMACY IV 12/27/24 12:30 Sodium Chloride 10 ml QSHIFT@10,22 IV 12/27/24 22:00 01/02/25 09:57 10 ML Furosemide 40 mg DAILY IV 12/29/24 10:45 01/02/25 09:55 40 MG Artificial Tears 1 drop Q6HP PRN EACHEYE 12/29/24 23:45 Micafungin Sodium 100 mg/Sodium Chloride 100 ml @ 100 mls/hr Q24H IV 12/30/24 09:45 01/02/25 09:54 100 MLS/HR Linezolid 300 ml @ 150 mls/hr Q12HR IV 12/30/24 22:00 01/02/25 09:54 150 MLS/HR Meropenem 50 ml @ 17 mls/hr Q8HR IV 12/31/24 14:00 01/02/25 05:36 17 MLS/HR Enoxaparin Sodium 40 mg DAILY SC 12/31/24 14:00 01/02/25 09:57 40 MG Sodium Chloride 60 meq/Sodium Phosphate 10 meq/ Potassium Chloride 60 meq/ Calcium Gluconate 4.65 meq/ Magnesium Sulfate 24 meq/ Multivitamins 10 ml/Chromium/ Copper/Manganese/ Zinc 1 ml/Amino Acids/Dextrose/ Purified Water 1,574.5 ml @ 66 mls/hr [id number] IV 01/01/25 22:00 01/02/25 21:59 01/01/25 21:53 66 MLS/HR Sodium Chloride 80 meq/Potassium Chloride 60 meq/ Calcium Gluconate 4.65 meq/ Magnesium Sulfate 24 meq/Chromium/ Copper/Manganese/ Zinc 1 ml/ Multivitamins 10 ml/Amino Acids/ Dextrose/Purified Water 1,577 ml @ 65 mls/hr [id number] IV 01/02/25 22:00 01/03/25 21:59 laboratory and microbiology Laboratory Tests 01/02/25 03:37 Test 01/02/25 03:37 Range/Units Serum Glucose 112 H 74-106 mg/dL Problem List/Assessment/Plan Problem List/Assessment/Plan 12/26/24 PATIENT EXAMINED WITH HIS MOTHER IN ATTENDANCE. ABDOMEN IS TENSELY DISTENDED AND FIRM, CT NOW INDICATES ASCITES. i HAVE DISCUSSED WITH Dr.N COLEMAN AND SHE WILL PROCEED WITH SIGMOIDOSCOPY/COLONOSCOPY . HAVE EXPLAINED TO HIS MOTHER HE MAY NEED AN OPERATION TO RESECT ISCHEMIC COLON AND GIVE HIM A COLOSTOMY. WILL PROCEED DEPENDING OF RESULTS OF Dr. Teo COLEMAN'S FINDINGS 12/27/24 DR.N COLEMAN CALLED ME AFTER SHE PERFORMED A SIGMOIDOSCOPY ON THIS PATIENT DURING WHICH SHE EVACUATED 6 LITERS OF MURKY FLUID FROM THE PATIENT'S COLON AND SHE SUSPECTS THAT THERE MAY BE A PERFORATION , ON HER EXAMINATION SHE DID SEE EVIDENCE OF ISCHEMIA. AFTER A THOROUGH DISCUSSION WITH PATIENT'S MOTHER WE WILL PROCEED WITH EXPLORATORY LAPAROTOMY AND PROBABLE COLECTOMY WITH COLOSTOMY. EXPLAINED RISKS AND COMPLICATIONS TO PATIENT'S MOTHER. 12/28/24 abdomen soft, non distended, all 4 drains with serous drainage, clinically unchanged. WBC improved. 12/30/24 ADEQUATE URINE OUTPUT, ABDOMEN NON DISTENDED, SOFT, ALL 4 DRAINS WITH SERO SANGUINEOUS DRAINAGE. 01/01/25 left pleural fluid aspirated by radiologist somewhat cloudy appearing, cultures sent. abdominal fluid aspirated is clear (probably irrigation) fluid, continues with leukocytosis 01/02/25 wbc lower, slight improvement, Gastrografin enema shows no evidence of extravasation. Plan discussed with: Other Dietary Evaluation Review Comments: 1. TF: Vital AF@50ml/hr (90g protein, 1440kcal 973 free water) meeting Protein needs 83%, energy needs 80%. 2. TPN per pharmacy meeting 75% of his needs if TF not feasible or NPO>7 days. 3. Diet as tolerated per MULESER eval when off Vent Expected Outcomes/Goals: Preventing catabolism HUMPHREY RUBIO MD Jan 02, 2025 12:57
[2025-01-02 13:07] LABS: Glucose, Body Fluid 94.0 mg/dL (.); LD, Body Fluid 589.0 IU/L (.)
--- NOTE | 2025-01-02 14:37 | DVHPN2 ---
Progress Note Date Seen: Jan 02, 2025 Has the PT tested + for MRSA If YES, has PT been informed?: No Medical Necessity Reason Pt with a Central, PICC or Fol: Yes The following are medically ne: Navarrete Catheter Reason for navarrete catheter: Strict I&O Objective vital signs Vital Sign Date Time Temp Pulse Resp B/P (MAP) Pulse Ox O2 Delivery O2 Flow Rate FiO2 01/02/25 14:17 132/85 01/02/25 13:15 100.9 113 25 97 213.6 01/02/25 12:00 30 01/02/25 12:00 Mechanical Ventilator+ Total Intake and Output 01/01/25 01/01/25 01/02/25 15:00 23:00 07:00 Intake Total 1264.1 ml 1154.1 ml 1467.6 ml Output Total 5175 ml 2575 ml Balance 1264.1 ml -4020.9 ml -1107.4 ml medications Current Medications Medications Dose Ordered Sig/Sherron Route Start Time Stop Time Status Last Admin Dose Admin Pantoprazole Sodium 40 mg DAILY IV 12/18/24 10:00 01/02/25 09:57 40 MG Midazolam HCl 50 ml @ 1 mls/hr Q24H IV 12/17/24 17:00 01/02/25 14:17 15 MLS/HR Valproate Sodium 250 mg/Sodium Chloride 52.5 ml @ 52.5 mls/hr BID IV 12/17/24 22:00 01/02/25 09:54 52.5 MLS/HR Propofol 100 ml @ 2.37 mls/hr Q24H IV 12/17/24 18:15 01/02/25 11:38 23.7 MLS/HR Fentanyl Citrate 250 ml @ 2.5 mls/hr Q24H IV 12/17/24 21:15 01/02/25 09:39 35 MLS/HR Norepinephrine Bitartrate 250 ml @ 3.75 mls/hr Q24H IV 12/18/24 01:45 12/20/24 00:01 30 MLS/HR Diagnostic Test (Pha) 1 strip Q6HR 12/20/24 18:00 01/02/25 11:41 1 STRIP Insulin Human Regular FOLLOW SLIDING SCALE Q6HR SC 12/20/24 18:00 01/02/25 00:12 2 UNITS Dextrose 50 ml UD IV 12/20/24 14:15 12/20/24 17:47 50 ML Acetaminophen 650 mg Q6HP PRN [place] 12/22/24 21:00 01/01/25 02:07 650 MG Sodium Chloride 40 meq/Potassium Chloride 40 meq/ Potassium Phosphate 11 meq/ Calcium Gluconate 2.3 meq/Magnesium Sulfate 8 meq/ Multivitamins 10 ml/Chromium/ Copper/Manganese/ Zinc 1 ml/Amino Acids/Dextrose/ Purified Water 1,450.4462 ml @ 60 mls/hr [id number] IV 12/26/24 22:00 12/27/24 21:59 Cancel Ipratropium [place] 0.5 mg Q6HR NEB 12/27/24 18:00 01/02/25 14:12 0.5 MG Levalbuterol HCl 1.25 mg Q6HR NEB 12/27/24 18:00 01/02/25 14:12 1.25 MG Amino Acids 0 ml @ 0 mls/hr PER PHARMACY IV 12/27/24 12:30 Sodium Chloride 10 ml QSHIFT@10,22 IV 12/27/24 22:00 01/02/25 09:57 10 ML Furosemide 40 mg DAILY IV 12/29/24 10:45 01/02/25 09:55 40 MG Artificial Tears 1 drop Q6HP PRN EACHEYE 12/29/24 23:45 Micafungin Sodium 100 mg/Sodium Chloride 100 ml @ 100 mls/hr Q24H IV 12/30/24 09:45 01/02/25 09:54 100 MLS/HR Linezolid 300 ml @ 150 mls/hr Q12HR IV 12/30/24 22:00 01/02/25 09:54 150 MLS/HR Meropenem 50 ml @ 17 mls/hr Q8HR IV 12/31/24 14:00 01/02/25 05:36 17 MLS/HR Enoxaparin Sodium 40 mg DAILY SC 12/31/24 14:00 01/02/25 09:57 40 MG Sodium Chloride 60 meq/Sodium Phosphate 10 meq/ Potassium Chloride 60 meq/ Calcium Gluconate 4.65 meq/ Magnesium Sulfate 24 meq/ Multivitamins 10 ml/Chromium/ Copper/Manganese/ Zinc 1 ml/Amino Acids/Dextrose/ Purified Water 1,574.5 ml @ 66 mls/hr [id number] IV 01/01/25 22:00 01/02/25 21:59 01/01/25 21:53 66 MLS/HR Sodium Chloride 80 meq/Potassium Chloride 60 meq/ Calcium Gluconate 4.65 meq/ Magnesium Sulfate 24 meq/Chromium/ Copper/Manganese/ Zinc 1 ml/ Multivitamins 10 ml/Amino Acids/ Dextrose/Purified Water 1,577 ml @ 65 mls/hr [id number] IV 01/02/25 22:00 01/03/25 21:59 laboratory and microbiology Laboratory Tests 01/02/25 03:37 Test 01/02/25 03:37 Range/Units Serum Glucose 112 H 74-106 mg/dL Problem List/Assessment/Plan Problem List/Assessment/Plan 12/26/24 PATIENT EXAMINED WITH HIS MOTHER IN ATTENDANCE. ABDOMEN IS TENSELY DISTENDED AND FIRM, CT NOW INDICATES ASCITES. i HAVE DISCUSSED WITH Dr.N COLEMAN AND SHE WILL PROCEED WITH SIGMOIDOSCOPY/COLONOSCOPY . HAVE EXPLAINED TO HIS MOTHER HE MAY NEED AN OPERATION TO RESECT ISCHEMIC COLON AND GIVE HIM A COLOSTOMY. WILL PROCEED DEPENDING OF RESULTS OF Dr. Teo CLOEMAN'S FINDINGS 12/27/24 DR.N COLEMAN CALLED ME AFTER SHE PERFORMED A SIGMOIDOSCOPY ON THIS PATIENT DURING WHICH SHE EVACUATED 6 LITERS OF MURKY FLUID FROM THE PATIENT'S COLON AND SHE SUSPECTS THAT THERE MAY BE A PERFORATION , ON HER EXAMINATION SHE DID SEE EVIDENCE OF ISCHEMIA. AFTER A THOROUGH DISCUSSION WITH PATIENT'S MOTHER WE WILL PROCEED WITH EXPLORATORY LAPAROTOMY AND PROBABLE COLECTOMY WITH COLOSTOMY. EXPLAINED RISKS AND COMPLICATIONS TO PATIENT'S MOTHER. 12/28/24 abdomen soft, non distended, all 4 drains with serous drainage, clinically unchanged. WBC improved. 12/30/24 ADEQUATE URINE OUTPUT, ABDOMEN NON DISTENDED, SOFT, ALL 4 DRAINS WITH SERO SANGUINEOUS DRAINAGE. 01/01/25 left pleural fluid aspirated by radiologist somewhat cloudy appearing, cultures sent. abdominal fluid aspirated is clear (probably irrigation) fluid, continues with leukocytosis 01/02/25 wbc lower, slight improvement, Gastrografin enema shows no evidence of extravasation. 01/02/25 I was asked by patient's nurse to come and talk the the family: mother,sister,sister in law and younger brother were present .Family told me patient history which was previously not known to me; PATIENT HAS BEEN ILL WITH HIS ABDOMINAL PAIN AND NAUSEA AND INABILITY TO EMPTY HIS BOWELS FOR OVER A YEAR AND AT ONE POINT SPENT TWO MONTHS IN THE HOSPITAL WITHOUT IMPROVEMENT. BROTHER TOLD ME THAT WE "HAVE DONE MORE TO HELP HIS BROTHER THAN ANYONE ELSE HAS". i EXPLAINED THAT THE PATIENT HAD TO BE INTUBATED IN THE ER AFTER BECOMING VERY UNSTABLE COMPLAINING OF ABDOMINAL PIN, OBVIOUSLY HE HAS SOME SERIOUS PROBLEMS. EXPLAINED THAT AT THE OPERATION ON HIS ABDOMEN THERE WAS EVIDENCE OF OVERWHELMING ABDOMINAL INFECTION,ADHESIONS,AND MULTIPLE ABSCESSES. THE GASTROGRAFIN ENEMA TODAY SHOWS NO EVIDENCE OF LEAK FROM THE COLON BUT HIS BOWEL IS STILL NOT FUNCTIONING AND WE MAY HAVE TO DO A DIVERTING COLOSTOMY IF HIS BOWEL DOES NOT RESUME NORMAL FUNCTION SOON. ALSO THE PATIENT MAY NEED A TRACHEOSTOMY IF HE DOES NOT SHOW ABILITY TO BE EXTUBATED SOON. FAMILY ASKED MANY QUESTIONS ,ALL OF WHICH I ANSWERED SEEMINGLY TO THEIR SATISFACTION. THE FAMILY WISHES TO DO EVERYTHING POSSIBLE TO MAKE THE PATIENT WELL.I ASSURED THEM THAT I WILL TREAT THE PATIENT I WOULD WANT MY FAMILY TO BE TREATED AND OFFERED THEM TO TA;LK TO THEM ANYTIME THEY HAVE QUESTIONS. Plan discussed with: Other Dietary Evaluation Review Comments: 1. TF: Vital AF@50ml/hr (90g protein, 1440kcal 973 free water) meeting Protein needs 83%, energy needs 80%. 2. TPN per pharmacy meeting 75% of his needs if TF not feasible or NPO>7 days. 3. Diet as tolerated per [employer] PAINTER eval when off Vent Expected Outcomes/Goals: Preventing catabolism HUMPHREY RUBIO MD Jan 02, 2025 14:37
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
[2025-01-02] MEDS: TPN PER PHARMACY IV NR (21:34)
[2025-01-03] VITALS (106 sets, daily range): BP systolic 82–170; BP diastolic 61–101; PULSE 67–132; RESP 17–33; TEMP 98.1–100.9; O2SAT 92–100
[2025-01-03 04:04] LABS: Hematocrit 26.5 % (41.0-53.0); Hemoglobin 8.9 g/dL (13.5-17.5); Mean Corpuscular Hemoglobin 30.1 pg (28.0-32.0); Mean Corpuscular Volume 89.4 fL (80.0-100.0); Nucleated Red Blood Cells % 0.1 %
[2025-01-03 04:17] LABS: Alkaline Phosphatase 102 U/L (46-116); Anion Gap 7 (5-15); BUN/Creatinine Ratio 37.8 (10.0-20.0); Bilirubin, Total 0.5 mg/dL (0.2-1.0); Blood Urea Nitrogen 14 mg/dL (9-23); Carbon Dioxide 31 mmol/L (20-31); Magnesium 1.9 mg/dL (1.6-2.6); Potassium 3.8 mmol/L (3.5-5.1); Total Protein 5.8 g/dL (5.7-8.2)
[2025-01-03 04:23] LABS: Alanine Aminotransferase < 9 U/L (7-40); Calcium 8.6 mg/dL (8.7-10.4); Chloride 98 mmol/L (98-107); Glucose 110 mg/dL (74-106); Sodium 136 mmol/L (136-145)
[2025-01-03 04:24] LABS: Albumin 3.0 g/dL (3.2-4.8)
--- NOTE | 2025-01-03 05:44 | DVH ---
CHEST RADIOGRAPH Indication: intubated Technique: Single frontal view of the chest was obtained COMPARISON: XY CHEST XRAY 1 VIEW on DOS: 01/02/25, XY CHEST XRAY 1 VIEW on DOS: 01/01/25, XY CHEST XRAY 1 VIEW on DOS: 01/01/25, XY CHEST PORTABLE on DOS: 12/31/24, XY CHEST PORTABLE on DOS: 12/30/24 FINDINGS: Lines and Tubes: Unchanged. Lungs: Grossly stable appearing multifocal bilateral pulmonary airspace disease and bibasilar atelect asis. Small bilateral pleural effusions. No pneumothorax. Cardiomediastinal contours: Cardiomegaly. Bones: Unremarkable IMPRESSION: 1. Stable cardiomegaly, multifocal bilateral pulmonary airspace disease and small bilateral pleural e ffusions. 2. Lines and tubes unchanged.
[2025-01-03 07:23] LABS: Base Excess 4.7 mmol/L (-2.0-3.0)
[2025-01-03] MEDS: KETOROLAC TROMETH 30 MG/ML 1ML VIAL IV ONE (08:15)
[2025-01-03] MEDS ORDERED: METOCLOPRAMIDE HCL 5MG/ml INJ 2ml VIAL IV PRN (09:45)
--- NOTE | 2025-01-03 09:50 | DVHPN2 ---
Progress Note Date Seen: Jan 03, 2025 Has the PT tested + for MRSA If YES, has PT been informed?: No Medical Necessity Reason Pt with a Central, PICC or Fol: Yes The following are medically ne: Navarrete Catheter Reason for navarrete catheter: Strict I&O Objective vital signs Vital Sign Date Time Temp Pulse Resp B/P (MAP) Pulse Ox O2 Delivery O2 Flow Rate FiO2 01/03/25 09:38 104/66 01/03/25 08:15 100.0 109 21 97 212.0 01/03/25 08:00 Mechanical Ventilator+ 30 30 Total Intake and Output 01/02/25 01/02/25 01/03/25 15:00 23:00 07:00 Intake Total 1270.1 ml 1200.6 ml 1209.9 ml Output Total 4080 ml 1020 ml Balance 1270.1 ml -2879.4 ml 189.9 ml medications Current Medications Medications Dose Ordered Sig/Sherron Route Start Time Stop Time Status Last Admin Dose Admin Pantoprazole Sodium 40 mg DAILY IV 12/18/24 10:00 01/03/25 09:38 40 MG Midazolam HCl 50 ml @ 1 mls/hr Q24H IV 12/17/24 17:00 01/03/25 07:47 15 MLS/HR Valproate Sodium 250 mg/Sodium Chloride 52.5 ml @ 52.5 mls/hr BID IV 12/17/24 22:00 01/03/25 08:27 52.5 MLS/HR Propofol 100 ml @ 2.37 mls/hr Q24H IV 12/17/24 18:15 01/03/25 07:47 23.7 MLS/HR Fentanyl Citrate 250 ml @ 2.5 mls/hr Q24H IV 12/17/24 21:15 01/03/25 04:53 35 MLS/HR Norepinephrine Bitartrate 250 ml @ 3.75 mls/hr Q24H IV 12/18/24 01:45 12/20/24 00:01 30 MLS/HR Diagnostic Test (Pha) 1 strip Q6HR 12/20/24 18:00 01/03/25 05:28 1 STRIP Insulin Human Regular FOLLOW SLIDING SCALE Q6HR SC 12/20/24 18:00 01/02/25 00:12 2 UNITS Dextrose 50 ml UD IV 12/20/24 14:15 12/20/24 17:47 50 ML Acetaminophen 650 mg Q6HP PRN FL 12/22/24 21:00 01/01/25 02:07 650 MG Sodium Chloride 40 meq/Potassium Chloride 40 meq/ Potassium Phosphate 11 meq/ Calcium Gluconate 2.3 meq/Magnesium Sulfate 8 meq/ Multivitamins 10 ml/Chromium/ Copper/Manganese/ Zinc 1 ml/Amino Acids/Dextrose/ Purified Water 1,450.4462 ml @ 60 mls/hr [id number] IV 12/26/24 22:00 12/27/24 21:59 Cancel Ipratropium Range 0.5 mg Q6HR NEB 12/27/24 18:00 01/03/25 06:37 0.5 MG Levalbuterol HCl 1.25 mg Q6HR NEB 12/27/24 18:00 01/03/25 06:37 1.25 MG Amino Acids 0 ml @ 0 mls/hr PER PHARMACY IV 12/27/24 12:30 Sodium Chloride 10 ml QSHIFT@10,22 IV 12/27/24 22:00 01/03/25 09:37 10 ML Furosemide 40 mg DAILY IV 12/29/24 10:45 01/03/25 09:38 40 MG Artificial Tears 1 drop Q6HP PRN EACHEYE 12/29/24 23:45 Micafungin Sodium 100 mg/Sodium Chloride 100 ml @ 100 mls/hr Q24H IV 12/30/24 09:45 01/03/25 08:26 100 MLS/HR Linezolid 300 ml @ 150 mls/hr Q12HR IV 12/30/24 22:00 01/03/25 09:38 150 MLS/HR Meropenem 50 ml @ 17 mls/hr Q8HR IV 12/31/24 14:00 01/03/25 05:27 17 MLS/HR Enoxaparin Sodium 40 mg DAILY SC 12/31/24 14:00 01/03/25 09:38 40 MG Sodium Chloride 80 meq/Potassium Chloride 60 meq/ Calcium Gluconate 4.65 meq/ Magnesium Sulfate 24 meq/Chromium/ Copper/Manganese/ Zinc 1 ml/ Multivitamins 10 ml/Amino Acids/ Dextrose/Purified Water 1,577 ml @ 65 mls/hr [id number] IV 01/02/25 22:00 01/03/25 21:59 01/02/25 21:34 65 MLS/HR laboratory and microbiology Laboratory Tests 01/03/25 03:30 Test 01/03/25 03:30 Range/Units Serum Glucose 110 H 74-106 mg/dL Problem List/Assessment/Plan Problem List/Assessment/Plan 12/26/24 PATIENT EXAMINED WITH HIS MOTHER IN ATTENDANCE. ABDOMEN IS TENSELY DISTENDED AND FIRM, CT NOW INDICATES ASCITES. i HAVE DISCUSSED WITH Dr.N COLEMAN AND SHE WILL PROCEED WITH SIGMOIDOSCOPY/COLONOSCOPY . HAVE EXPLAINED TO HIS MOTHER HE MAY NEED AN OPERATION TO RESECT ISCHEMIC COLON AND GIVE HIM A COLOSTOMY. WILL PROCEED DEPENDING OF RESULTS OF Dr. Teo COLEMAN'S FINDINGS 12/27/24 DR.N COLEMAN CALLED ME AFTER SHE PERFORMED A SIGMOIDOSCOPY ON THIS PATIENT DURING WHICH SHE EVACUATED 6 LITERS OF MURKY FLUID FROM THE PATIENT'S COLON AND SHE SUSPECTS THAT THERE MAY BE A PERFORATION , ON HER EXAMINATION SHE DID SEE EVIDENCE OF ISCHEMIA. AFTER A THOROUGH DISCUSSION WITH PATIENT'S MOTHER WE WILL PROCEED WITH EXPLORATORY LAPAROTOMY AND PROBABLE COLECTOMY WITH COLOSTOMY. EXPLAINED RISKS AND COMPLICATIONS TO PATIENT'S MOTHER. 12/28/24 abdomen soft, non distended, all 4 drains with serous drainage, clinically unchanged. WBC improved. 12/30/24 ADEQUATE URINE OUTPUT, ABDOMEN NON DISTENDED, SOFT, ALL 4 DRAINS WITH SERO SANGUINEOUS DRAINAGE. 01/01/25 left pleural fluid aspirated by radiologist somewhat cloudy appearing, cultures sent. abdominal fluid aspirated is clear (probably irrigation) fluid, continues with leukocytosis 01/02/25 wbc lower, slight improvement, Gastrografin enema shows no evidence of extravasation. 01/02/25 I was asked by patient's nurse to come and talk the the family: mother,sister,sister in law and younger brother were present .Family told me patient history which was previously not known to me; PATIENT HAS BEEN ILL WITH HIS ABDOMINAL PAIN AND NAUSEA AND INABILITY TO EMPTY HIS BOWELS FOR OVER A YEAR AND AT ONE POINT SPENT TWO MONTHS IN THE HOSPITAL WITHOUT IMPROVEMENT. BROTHER TOLD ME THAT WE "HAVE DONE MORE TO HELP HIS BROTHER THAN ANYONE ELSE HAS". i EXPLAINED THAT THE PATIENT HAD TO BE INTUBATED IN THE ER AFTER BECOMING VERY UNSTABLE COMPLAINING OF ABDOMINAL PIN, OBVIOUSLY HE HAS SOME SERIOUS PROBLEMS. EXPLAINED THAT AT THE OPERATION ON HIS ABDOMEN THERE WAS EVIDENCE OF OVERWHELMING ABDOMINAL INFECTION,ADHESIONS,AND MULTIPLE ABSCESSES. THE GASTROGRAFIN ENEMA TODAY SHOWS NO EVIDENCE OF LEAK FROM THE COLON BUT HIS BOWEL IS STILL NOT FUNCTIONING AND WE MAY HAVE TO DO A DIVERTING COLOSTOMY IF HIS BOWEL DOES NOT RESUME NORMAL FUNCTION SOON. ALSO THE PATIENT MAY NEED A TRACHEOSTOMY IF HE DOES NOT SHOW ABILITY TO BE EXTUBATED SOON. FAMILY ASKED MANY QUESTIONS ,ALL OF WHICH I ANSWERED SEEMINGLY TO THEIR SATISFACTION. THE FAMILY WISHES TO DO EVERYTHING POSSIBLE TO MAKE THE PATIENT WELL.I ASSURED THEM THAT I WILL TREAT THE PATIENT I WOULD WANT MY FAMILY TO BE TREATED AND OFFERED THEM TO TA;LK TO THEM ANYTIME THEY HAVE QUESTIONS. 01/03/25 mother and sister at bedside, abdomen soft and nondistended, drainage serous but with slight sediment, will ask nurses to irrigate , WBC little higher. will try to stimulate bowel activity with neostigmine and Reglan. will await request from primary team for tracheostomy ( have explained procedure to family members). Plan discussed with: Other Dietary Evaluation Review Comments: 1. TF: Vital AF@50ml/hr (90g protein, 1440kcal 973 free water) meeting Protein needs 83%, energy needs 80%. 2. TPN per pharmacy meeting 75% of his needs if TF not feasible or NPO>7 days. 3. Diet as tolerated per HOSPICE CARE SALES CONSULTANT eval when off Vent Expected Outcomes/Goals: Preventing catabolism HUMPHREY RUBIO MD Jan 03, 2025 09:50
[2025-01-03] MEDS: NEOSTIGMINE 1 MG/ML INJ (10mg/10ML VIAL) IV SCH (10:53)
--- NOTE | 2025-01-03 12:21 | DVH ---
Date: 01/03/2025 11:44 AM Examination: XY KUB ABDOMEN SINGLE VIEW History: examine lower pelvic sigmoid area for extravasation of contr Comparison: XY KUB ABDOMEN SINGLE VIEW on DOS: 12/25/24, XY KUB ABDOMEN SINGLE VIEW on DOS: 12/25/24, XY KUB ABDOMEN SINGLE VIEW on DOS: 12/22/24, XY KUB ABDOMEN SINGLE VIEW on DOS: 12/20/24, XY KUB ABDOMEN SIN GLE VIEW on DOS: 12/18/24 TECHNIQUE: Frontal views of the abdomen was obtained. FINDINGS/IMPRESSION: Weighted tip feeding tube projects over the duodenum. Contrast is visualized in the colon. The lung bases are collimated from field of view. Martinez catheter projects over the urinary bladder. No acute osseous abnormality identified.
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
[2025-01-03] MEDS: GASTROGRAFIN 120 ML SOL ONE (19:16)
[2025-01-03] MEDS: TPN PER PHARMACY IV NR (20:54)
[2025-01-04] VITALS (109 sets, daily range): BP systolic 95–162; BP diastolic 57–93; PULSE 16–139; RESP 13–37; TEMP 96.4–100.6; O2SAT 95–100
[2025-01-04 03:35] LABS: Alkaline Phosphatase 110 U/L (46-116); Anion Gap 5 (5-15); BUN/Creatinine Ratio 39.4 (10.0-20.0); Blood Urea Nitrogen 13 mg/dL (9-23); Carbon Dioxide 31 mmol/L (20-31); Chloride 99 mmol/L (98-107); Hematocrit 26.5 % (41.0-53.0); Hemoglobin 8.9 g/dL (13.5-17.5); Magnesium 2.0 mg/dL (1.6-2.6); Nucleated Red Blood Cells % 0.0 %; Potassium 3.7 mmol/L (3.5-5.1); Total Protein 5.9 g/dL (5.7-8.2)
[2025-01-04 03:36] LABS: Bilirubin, Total 0.5 mg/dL (0.2-1.0); Mean Corpuscular Hemoglobin 30.1 pg (28.0-32.0); Mean Corpuscular Volume 89.2 fL (80.0-100.0)
[2025-01-04 04:07] LABS: Glucose 118 mg/dL (74-106); Sodium 135 mmol/L (136-145)
[2025-01-04 04:08] LABS: Alanine Aminotransferase 9 U/L (7-40); Albumin 3.0 g/dL (3.2-4.8); Calcium 8.1 mg/dL (8.7-10.4)
[2025-01-04 04:36] LABS: Triglycerides 257 mg/dL (< 150)
--- NOTE | 2025-01-04 05:43 | DVH ---
CHEST RADIOGRAPH Indication: intubated Technique: Single frontal view of the chest was obtained COMPARISON: XY CHEST XRAY 1 VIEW on DOS: 01/03/25, XY CHEST XRAY 1 VIEW on DOS: 01/02/25, XY CHEST XRAY 1 VIEW on DOS: 01/01/25, XY CHEST XRAY 1 VIEW on DOS: 01/01/25, XY CHEST PORTABLE on DOS: 12/31/24 FINDINGS: Lines and Tubes: Endotracheal tube, enteric catheter and right PICC in satisfactory position. Lungs: Multifocal airspace disease Pleura: No effusion. No pneumothorax. Cardiomediastinal contours: Cardiomegaly Bones: Unremarkable IMPRESSION: Lines and tubes in satisfactory position. No significant interval change.
[2025-01-04 07:26] LABS: Base Excess 4.1 mmol/L (-2.0-3.0)
--- NOTE | 2025-01-04 09:10 | DVH ---
XY KUB ABDOMEN SINGLE VIEW HISTORY: sp laparotomy TECHNICAL DATA: 1 view of the abdomen. COMPARISON: XY KUB ABDOMEN SINGLE VIEW on DOS: 01/03/25, XY KUB ABDOMEN SINGLE VIEW on DOS: 12/25/24, XY KUB ABDOMEN SINGLE VIEW on DOS: 12/25/24 FINDINGS: Patchy gas is identified within nondistended small bowel. There are no dilated small bowel loops. Si milar oral contrast material retained in the colon. Similar enteric tubes and abdominal drains. IMPRESSION: No significant interval change with retained oral contrast material in the colon.
[2025-01-04 10:33] LABS: INR 1.07 (0.9-1.15); Partial Thromboplastin Time 31.8 SEC (24.5-34.5); Prothrombin Time 11.3 sec (9.3-11.8)
[2025-01-04] MEDS ORDERED: ACETAMINOPHEN IV 1000 MG/100ML (10MG/ML) IV PRN (11:45)
[2025-01-04] MEDS: KETOROLAC TROMETH 30 MG/ML 1ML VIAL IV ONE (12:15)
[2025-01-04] MEDS: KETAMINE 50mg/ML 1ml syringe IV ONE (12:24)
--- NOTE | 2025-01-04 12:40 | DVHPN2 ---
Progress Note Date Seen: Jan 04, 2025 Has the PT tested + for MRSA If YES, has PT been informed?: No Medical Necessity Reason Pt with a Central, PICC or Fol: Yes The following are medically ne: Navarrete Catheter Reason for navarrete catheter: Strict I&O Objective vital signs Vital Sign Date Time Temp Pulse Resp B/P (MAP) Pulse Ox O2 Delivery O2 Flow Rate FiO2 01/04/25 11:30 100.6 137 36 154/92 (112) 96 213.1 01/04/25 11:26 30 01/04/25 10:00 Mechanical Ventilator+ Total Intake and Output 01/03/25 01/03/25 01/04/25 15:00 23:00 07:00 Intake Total 1614.5 ml 1310.5 ml 1314.9 ml Output Total 4430 ml 2080 ml Balance 1614.5 ml -3119.5 ml -765.1 ml medications Current Medications Medications Dose Ordered Sig/Sherron Route Start Time Stop Time Status Last Admin Dose Admin Pantoprazole Sodium 40 mg DAILY IV 12/18/24 10:00 01/04/25 09:14 40 MG Midazolam HCl 50 ml @ 1 mls/hr Q24H IV 12/17/24 17:00 01/04/25 12:22 15 MLS/HR Valproate Sodium 250 mg/Sodium Chloride 52.5 ml @ 52.5 mls/hr BID IV 12/17/24 22:00 01/04/25 09:15 52.5 MLS/HR Propofol 100 ml @ 2.37 mls/hr Q24H IV 12/17/24 18:15 01/04/25 11:28 23.7 MLS/HR Fentanyl Citrate 250 ml @ 2.5 mls/hr Q24H IV 12/17/24 21:15 01/04/25 07:21 35 MLS/HR Norepinephrine Bitartrate 250 ml @ 3.75 mls/hr Q24H IV 12/18/24 01:45 12/20/24 00:01 30 MLS/HR Diagnostic Test (Pha) 1 strip Q6HR 12/20/24 18:00 01/04/25 11:34 1 STRIP Insulin Human Regular FOLLOW SLIDING SCALE Q6HR SC 12/20/24 18:00 01/02/25 00:12 2 UNITS Dextrose 50 ml UD IV 12/20/24 14:15 7/3/25 17:47 50 ML Acetaminophen 650 mg Q6HP PRN GA 12/22/24 21:00 01/01/25 02:07 650 MG Sodium Chloride 40 meq/Potassium Chloride 40 meq/ Potassium Phosphate 11 meq/ Calcium Gluconate 2.3 meq/Magnesium Sulfate 8 meq/ Multivitamins 10 ml/Chromium/ Copper/Manganese/ Zinc 1 ml/Amino Acids/Dextrose/ Purified Water 1,450.4462 ml @ 60 mls/hr [id number] IV 12/26/24 22:00 12/27/24 21:59 Cancel Ipratropium [place] 0.5 mg Q6HR NEB 12/27/24 18:00 01/04/25 11:26 0.5 MG Levalbuterol HCl 1.25 mg Q6HR NEB 12/27/24 18:00 01/04/25 11:26 1.25 MG Amino Acids 0 ml @ 0 mls/hr PER PHARMACY IV 12/27/24 12:30 Sodium Chloride 10 ml QSHIFT@10,22 IV 12/27/24 22:00 01/04/25 09:16 10 ML Furosemide 40 mg DAILY IV 12/29/24 10:45 01/04/25 09:16 40 MG Artificial Tears 1 drop Q6HP PRN EACHEYE 12/29/24 23:45 Micafungin Sodium 100 mg/Sodium Chloride 100 ml @ 100 mls/hr Q24H IV 12/30/24 09:45 01/04/25 09:12 100 MLS/HR Linezolid 300 ml @ 150 mls/hr Q12HR IV 12/30/24 22:00 01/04/25 09:16 150 MLS/HR Meropenem 50 ml @ 17 mls/hr Q8HR IV 12/31/24 14:00 01/04/25 06:52 17 MLS/HR Enoxaparin Sodium 40 mg DAILY SC 12/31/24 14:00 01/04/25 09:16 40 MG Neostigmine Methylsulfate 0.5 mg Q4HR IV 01/03/25 10:00 01/04/25 09:15 0.5 MG Metoclopramide HCl 5 mg Q6HPRN PRN IV 01/03/25 09:45 Sodium Chloride 80 meq/Potassium Chloride 70 meq/ Calcium Gluconate 2.3 meq/Magnesium Sulfate 28 meq/ Multivitamins 10 ml/Chromium/ Copper/Manganese/ Zinc 1 ml/Amino Acids/Dextrose/ Purified Water 1,577.9462 ml @ 65 mls/hr [id number] IV 01/03/25 22:00 01/04/25 21:59 01/03/25 20:54 65 MLS/HR Sodium Chloride 80 meq/Potassium Chloride 80 meq/ Calcium Gluconate 4.65 meq/ Magnesium Sulfate 30 meq/ Multivitamins 10 ml/Chromium/ Copper/Manganese/ Zinc 1 ml/Amino Acids/Dextrose/ Purified Water 1,588.5 ml @ 66 mls/hr Q24H5M IV 01/04/25 22:00 01/05/25 21:59 laboratory and microbiology Laboratory Tests 01/04/25 02:42 Test 01/04/25 02:42 Range/Units Serum Glucose 118 H 74-106 mg/dL Problem List/Assessment/Plan Problem List/Assessment/Plan 12/26/24 PATIENT EXAMINED WITH HIS MOTHER IN ATTENDANCE. ABDOMEN IS TENSELY DISTENDED AND FIRM, CT NOW INDICATES ASCITES. i HAVE DISCUSSED WITH Dr.N COLEMAN AND SHE WILL PROCEED WITH SIGMOIDOSCOPY/COLONOSCOPY . HAVE EXPLAINED TO HIS MOTHER HE MAY NEED AN OPERATION TO RESECT ISCHEMIC COLON AND GIVE HIM A COLOSTOMY. WILL PROCEED DEPENDING OF RESULTS OF Dr. Teo COLEMAN'S FINDINGS 12/27/24 DR.N COLEMAN CALLED ME AFTER SHE PERFORMED A SIGMOIDOSCOPY ON THIS PATIENT DURING WHICH SHE EVACUATED 6 LITERS OF MURKY FLUID FROM THE PATIENT'S COLON AND SHE SUSPECTS THAT THERE MAY BE A PERFORATION , ON HER EXAMINATION SHE DID SEE EVIDENCE OF ISCHEMIA. AFTER A THOROUGH DISCUSSION WITH PATIENT'S MOTHER WE WILL PROCEED WITH EXPLORATORY LAPAROTOMY AND PROBABLE COLECTOMY WITH COLOSTOMY. EXPLAINED RISKS AND COMPLICATIONS TO PATIENT'S MOTHER. 12/28/24 abdomen soft, non distended, all 4 drains with serous drainage, clinically unchanged. WBC improved. 12/30/24 ADEQUATE URINE OUTPUT, ABDOMEN NON DISTENDED, SOFT, ALL 4 DRAINS WITH SERO SANGUINEOUS DRAINAGE. 01/01/25 left pleural fluid aspirated by radiologist somewhat cloudy appearing, cultures sent. abdominal fluid aspirated is clear (probably irrigation) fluid, continues with leukocytosis 01/02/25 wbc lower, slight improvement, Gastrografin enema shows no evidence of extravasation. 01/02/25 I was asked by patient's nurse to come and talk the the family: mother,sister,sister in law and younger brother were present .Family told me patient history which was previously not known to me; PATIENT HAS BEEN ILL WITH HIS ABDOMINAL PAIN AND NAUSEA AND INABILITY TO EMPTY HIS BOWELS FOR OVER A YEAR AND AT ONE POINT SPENT TWO MONTHS IN THE HOSPITAL WITHOUT IMPROVEMENT. BROTHER TOLD ME THAT WE "HAVE DONE MORE TO HELP HIS BROTHER THAN ANYONE ELSE HAS". i EXPLAINED THAT THE PATIENT HAD TO BE INTUBATED IN THE ER AFTER BECOMING VERY UNSTABLE COMPLAINING OF ABDOMINAL PIN, OBVIOUSLY HE HAS SOME SERIOUS PROBLEMS. EXPLAINED THAT AT THE OPERATION ON HIS ABDOMEN THERE WAS EVIDENCE OF OVERWHELMING ABDOMINAL INFECTION,ADHESIONS,AND MULTIPLE ABSCESSES. THE GASTROGRAFIN ENEMA TODAY SHOWS NO EVIDENCE OF LEAK FROM THE COLON BUT HIS BOWEL IS STILL NOT FUNCTIONING AND WE MAY HAVE TO DO A DIVERTING COLOSTOMY IF HIS BOWEL DOES NOT RESUME NORMAL FUNCTION SOON. ALSO THE PATIENT MAY NEED A TRACHEOSTOMY IF HE DOES NOT SHOW ABILITY TO BE EXTUBATED SOON. FAMILY ASKED MANY QUESTIONS ,ALL OF WHICH I ANSWERED SEEMINGLY TO THEIR SATISFACTION. THE FAMILY WISHES TO DO EVERYTHING POSSIBLE TO MAKE THE PATIENT WELL.I ASSURED THEM THAT I WILL TREAT THE PATIENT I WOULD WANT MY FAMILY TO BE TREATED AND OFFERED THEM TO TA;LK TO THEM ANYTIME THEY HAVE QUESTIONS. 01/03/25 mother and sister at bedside, abdomen soft and nondistended, drainage serous but with slight sediment, will ask nurses to irrigate , WBC little higher. will try to stimulate bowel activity with neostigmine and Reglan. will await request from primary team for tracheostomy ( have explained procedure to family members). 01/04/25 patient is febrile, abdomen is not distended and soft but the irrigation of drain number 4 produces fouls smelling murky fluid, the remaining three drains do not produce the same cat of fluid. due to persistent leukocytosis and fever, combined with the purulent quality of fluid we will proceed witth ex- loratory laparotomy tomorrow, Most likley will do a transverse colostomy as well as there is no movement of contrast in the colon. planned tracheostomy will be done at the same time. Patient's mother and brother present and fully informed. Plan discussed with: Patient Dietary Evaluation Review Comments: 1. TF: Vital AF@50ml/hr (90g protein, 1440kcal 973 free water) meeting Protein needs 83%, energy needs 80%. 2. TPN per pharmacy meeting 75% of his needs if TF not feasible or NPO>7 days. 3. Diet as tolerated per [employer] eval when off Vent Expected Outcomes/Goals: Preventing catabolism HUMPHREY RUBIO MD Jan 04, 2025 12:40
[2025-01-04] MEDS ORDERED: KETAMINE 50mg/ML 10ml Vial (500mg/10ml) IV PRN ×2 (14:45→15:00)
--- NOTE | 2025-01-04 15:11 | DVHPN2 ---
Progress Note - Dictate Date Seen: Jan 04, 2025 Has the PT tested + for MRSA If YES, has PT been informed?: No Medical Necessity Reason Pt with a Central, PICC or Fol: Yes The following are medically ne: Navarrete Catheter Reason for navarrete catheter: Strict I&O Subjective Postop day 8. S/P expiratory laparotomy operative report findings noted Patient had a frozen abdomen with extensive exudates fibrosis, lysis of adhesions was performed but no clear-cut perforation was identified Pt is intubated and sedated; on multiple antibiotics and Zyvox for VRE, currently does not require pressor support There is also a Dobbhoff that is not being used . Patient has anasarca, albumin very low 2.5. Recent echo EF was normal and no abnormalities. Overall patient's condition is worsening; he is tachycardic Ascitic fluid was showing multiple WBC and RBC and patient has secondary bacterial peritonitis patient is febrile, the irrigation of drain number 4 produces fouls smelling murky fluid, the remaining three drains do not produce the same kind of fluid vital signs Vital Sign Date Time Temp Pulse Resp B/P (MAP) Pulse Ox O2 Delivery O2 Flow Rate FiO2 01/04/25 14:45 97.4 101 17 117/71 (86) 98 97.4 01/04/25 14:18 30 01/04/25 14:00 Mechanical Ventilator+ Total Intake and Output 01/03/25 01/03/25 01/04/25 15:00 23:00 07:00 Intake Total 1614.5 ml 1310.5 ml 1314.9 ml Output Total 4430 ml 2080 ml Balance 1614.5 ml -3119.5 ml -765.1 ml medications Current Medications Medications Dose Ordered Sig/Sherron Route Start Time Stop Time Status Last Admin Dose Admin Pantoprazole Sodium 40 mg DAILY IV 12/18/24 10:00 01/04/25 09:14 40 MG Midazolam HCl 50 ml @ 1 mls/hr Q24H IV 12/17/24 17:00 01/04/25 12:22 15 MLS/HR Valproate Sodium 250 mg/Sodium Chloride 52.5 ml @ 52.5 mls/hr BID IV 12/17/24 22:00 01/04/25 09:15 52.5 MLS/HR Propofol 100 ml @ 2.37 mls/hr Q24H IV 12/17/24 18:15 01/04/25 14:47 23.7 MLS/HR Fentanyl Citrate 250 ml @ 2.5 mls/hr Q24H IV 12/17/24 21:15 01/04/25 14:12 35 MLS/HR Norepinephrine Bitartrate 250 ml @ 3.75 mls/hr Q24H IV 12/18/24 01:45 12/20/24 00:01 30 MLS/HR Diagnostic Test (Pha) 1 strip Q6HR 12/20/24 18:00 01/04/25 11:34 1 STRIP Insulin Human Regular FOLLOW SLIDING SCALE Q6HR SC 12/20/24 18:00 01/02/25 00:12 2 UNITS Dextrose 50 ml UD IV 12/20/24 14:15 12/20/24 17:47 50 ML Acetaminophen 650 mg Q6HP PRN SD 12/22/24 21:00 01/01/25 02:07 650 MG Sodium Chloride 40 meq/Potassium Chloride 40 meq/ Potassium Phosphate 11 meq/ Calcium Gluconate 2.3 meq/Magnesium Sulfate 8 meq/ Multivitamins 10 ml/Chromium/ Copper/Manganese/ Zinc 1 ml/Amino Acids/Dextrose/ Purified Water 1,450.4462 ml @ 60 mls/hr [id number] IV 12/26/24 22:00 12/27/24 21:59 Cancel Ipratropium [place] 0.5 mg Q6HR NEB 12/27/24 18:00 01/04/25 11:26 0.5 MG Levalbuterol HCl 1.25 mg Q6HR NEB 12/27/24 18:00 01/04/25 11:26 1.25 MG Amino Acids 0 ml @ 0 mls/hr PER PHARMACY IV 12/27/24 12:30 Sodium Chloride 10 ml QSHIFT@10,22 IV 12/27/24 22:00 01/04/25 09:16 10 ML Furosemide 40 mg DAILY IV 12/29/24 10:45 01/04/25 09:16 40 MG Artificial Tears 1 drop Q6HP PRN EACHEYE 12/29/24 23:45 Micafungin Sodium 100 mg/Sodium Chloride 100 ml @ 100 mls/hr Q24H IV 12/30/24 09:45 01/04/25 09:12 100 MLS/HR Linezolid 300 ml @ 150 mls/hr Q12HR IV 12/30/24 22:00 01/04/25 09:16 150 MLS/HR Meropenem 50 ml @ 17 mls/hr Q8HR IV 12/31/24 14:00 01/04/25 13:19 17 MLS/HR Enoxaparin Sodium 40 mg DAILY SC 12/31/24 14:00 01/04/25 09:16 40 MG Neostigmine Methylsulfate 0.5 mg Q4HR IV 01/03/25 10:00 01/04/25 13:19 0.5 MG Metoclopramide HCl 5 mg Q6HPRN PRN IV 01/03/25 09:45 Sodium Chloride 80 meq/Potassium Chloride 70 meq/ Calcium Gluconate 2.3 meq/Magnesium Sulfate 28 meq/ Multivitamins 10 ml/Chromium/ Copper/Manganese/ Zinc 1 ml/Amino Acids/Dextrose/ Purified Water 1,577.9462 ml @ 65 mls/hr [id number] IV 01/03/25 22:00 01/04/25 21:59 01/03/25 20:54 65 MLS/HR Sodium Chloride 80 meq/Potassium Chloride 80 meq/ Calcium Gluconate 4.65 meq/ Magnesium Sulfate 30 meq/ Multivitamins 10 ml/Chromium/ Copper/Manganese/ Zinc 1 ml/Amino Acids/Dextrose/ Purified Water 1,588.5 ml @ 66 mls/hr Q24H5M IV 01/04/25 22:00 01/05/25 21:59 Acetaminophen 1,000 mg [id number] IV 01/04/25 22:00 UNV Ketorolac Tromethamine 30 mg Q6HPRN PRN IV 01/04/25 14:45 01/09/25 14:44 UNV Ketamine HCl 50 mg [id number] PRN IV 01/04/25 15:00 01/05/25 07:00 UNV objective General Appearance: Other (Fully intubated) HEENT: Atraumatic, PERRLA, EOMI, Mucous membr. moist/pink Respiratory: Normal air movement, Other (On ventilator) Cardiovascular: Regular rate, Normal S1, Normal S2, No murmurs Abdominal: Binder in place, soft, distended, no bowel sounds Extremities: No clubbing, No cyanosis, No edema, Normal pulses, No tenderness/swelling Skin: No rashes, No breakdown, No significant lesion Neuro: Normal speech, Normal tone, Sensation intact, Cranial nerves 3-12 NL, Reflexes 2+, Other (Generalized weakness) Psych/Mental Status: Mood NL, Other (Altered mental status) Rectal exam, normal tone no obstipation rectal mass or obstruction noted and no stool in the rectum laboratory and microbiology Laboratory Tests 01/04/25 02:42 Test 01/04/25 02:42 Range/Units Serum Glucose 118 H 74-106 mg/dL Problems(with codes): (1) Peritonitis (2) 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 Most likley plan to do a transverse colostomy as well as there is no movement of contrast in the colon. Planned tracheostomy will be done at the same time. I discussed with the patient's family and told them this is likely be the best option at this time However his condition is critical and because of sepsis his prognosis is still very poor Continue supportive care IV fluid hydration, IV nutritional support, IV antibiotics Dietary Evaluation Review Comments: 1. TF: Vital AF@50ml/hr (90g protein, 1440kcal 973 free water) meeting Protein needs 83%, energy needs 80%. 2. TPN per pharmacy meeting 75% of his needs if TF not feasible or NPO>7 days. 3. Diet as tolerated per [employer] eval when off Vent Expected Outcomes/Goals: Preventing catabolism Plan discussed with: Other (ICU nurse mother and brothers) MAO COLEMAN MD Jan 04, 2025 15:11
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
[2025-01-04] MEDS: TPN PER PHARMACY IV NR (21:22)
[2025-01-04] MEDS: ACETAMINOPHEN IV 1000 MG/100ML (10MG/ML) IV SCH (21:31)
[2025-01-05] VITALS (99 sets, daily range): BP systolic 103–165; BP diastolic 61–102; PULSE 105–148; RESP 15–33; TEMP 95.5–101.3; O2SAT 94–100
[2025-01-05] MEDS: KETAMINE 50mg/ML 1ml syringe IV PRN (03:24)
[2025-01-05 03:29] LABS: Hemoglobin 8.1 g/dL (13.5-17.5); Nucleated Red Blood Cells % 0.0 %
[2025-01-05 03:32] LABS: Hematocrit 24.0 % (41.0-53.0); Mean Corpuscular Hemoglobin 30.3 pg (28.0-32.0); Mean Corpuscular Volume 89.9 fL (80.0-100.0)
[2025-01-05 03:45] LABS: Alanine Aminotransferase 10 U/L (7-40); Alkaline Phosphatase 107 U/L (46-116); Anion Gap 5 (5-15); BUN/Creatinine Ratio 48.8 (10.0-20.0); Blood Urea Nitrogen 20 mg/dL (9-23); Calcium 8.7 mg/dL (8.7-10.4); Chloride 99 mmol/L (98-107); Glucose 104 mg/dL (74-106); Magnesium 2.0 mg/dL (1.6-2.6); Potassium 3.9 mmol/L (3.5-5.1); Sodium 136 mmol/L (136-145); Total Protein 6.0 g/dL (5.7-8.2)
[2025-01-05 03:47] LABS: Bilirubin, Total 0.4 mg/dL (0.2-1.0)
[2025-01-05 03:54] LABS: Albumin 2.9 g/dL (3.2-4.8); Carbon Dioxide 32 mmol/L (20-31)
[2025-01-05] MEDS: ACETAMINOPHEN IV 1000 MG/100ML (10MG/ML) IV PRN (03:59)
[2025-01-05] MEDS: KETOROLAC TROMETH 30 MG/ML 1ML VIAL IV PRN (05:16)
[2025-01-05 06:11] LABS: Base Excess 6.1 mmol/L (-2.0-3.0)
--- NOTE | 2025-01-05 06:25 | DVH ---
CHEST RADIOGRAPH Indication: intubated Technique: Single frontal view of the chest was obtained COMPARISON: XY CHEST XRAY 1 VIEW on DOS: 01/04/25, XY CHEST XRAY 1 VIEW on DOS: 01/03/25, XY CHEST XRAY 1 VIEW on DOS: 01/02/25, XY CHEST XRAY 1 VIEW on DOS: 01/01/25, XY CHEST XRAY 1 VIEW on DOS: 01/01/25 FINDINGS: Lines and Tubes: Endotracheal tube and enteric catheter is in satisfactory position. Right PICC in s atisfactory position. Lungs: Multifocal airspace disease. Pleura: Small bilateral pleural effusions. No pneumothorax. Cardiomediastinal contours: Cardiomegaly Bones: Unremarkable IMPRESSION: Lines and tubes in satisfactory position. No significant interval change.
[2025-01-05] MEDS ORDERED: SIMETHICONE 40 MG/0.6 ML ORAL DROP ONE (06:44)
[2025-01-05] MEDS ORDERED: ROCURONIUM 10MG/ML 10ML VIAL IV ONE ×2 (07:43→09:27)
[2025-01-05] MEDS ORDERED: HYDROmorphone HCL 2 MG/ML VL/or syr ONE (07:44)
[2025-01-05] MEDS ORDERED: ceFAZolin 1GM VL ONE (07:51)
[2025-01-05] MEDS ORDERED: ONDANSETRON HCL 4 MG/2 ML VIAL ONE (07:54)
[2025-01-05] MEDS: LIDOCAINE W/ EPINEPHRINE 1% 20ML VIAL ONE (10:13)
--- NOTE | 2025-01-05 11:09 | DVH ---
CHEST RADIOGRAPH Indication: Tracheostomy Technique: Single frontal view of the chest was obtained Comparison: XY CHEST XRAY 1 VIEW on DOS: 01/05/25 FINDINGS: Lines and Tubes: Tracheostomy tube is unchanged. Right PICC terminates in the superior vena cava. Th e enteric tubes course below the left hemidiaphragm and the tips extend outside the field of view. Lungs: Bilateral airspace disease. Pleura: Small bilateral pleural effusions. No pneumothorax. Cardiomediastinal contours: Unremarkable Bones: No acute osseous abnormality. IMPRESSION: 1. Small bilateral pleural effusions and bibasilar airspace disease. 2. Cardiomegaly.
--- NOTE | 2025-01-05 11:17 | DVHOP ---
DATE OF SURGERY: 01/05/2025 PREOPERATIVE DIAGNOSES: Persistent abdominal sepsis, ventilator dependent respiratory failure. SURGEON: Zane Krishna MD DRY HEAT ROOM ATTENDANT: Duglas Patrick NP ANESTHESIA: General endotracheal. ANESTHESIOLOGIST: Andre Terrazas, nurse freight handler. PROCEDURES: Exploratory laparotomy, extensive lysis of adhesions, transverse colostomy and mucous fistula, abdominal lavage, evacuation of abdominal abscesses, repair of sigmoid defect. DESCRIPTION OF PROCEDURE: Under general endotracheal anesthesia with the patient's skin prepped and draped, the abdomen was entered through a midline incision through preexisting scar. The abdomen was so-called impenetrable abdomen with adhesions between the loops of the bowel, anterior abdominal wall, liver. The colon was completely encased with adhesions. The small bowel was totally encased with adhesions. The abdomen was like someone poured superglue into the small bowels and the colon. It was a meticulous effort to mobilize the bowel sufficiently to be able to examine it without causing any injury to the bowel loops. Eventually, the bowel was sufficiently mobilized as to find an area in the sigmoid colon which was on compression leaking stool. This was closed using 2-0 Monocryl suture to the extent that it no longer was allowing stool to escape. Numerous abdominal abscesses were encountered. They were cultured for cultures and sensitivities and evacuated. The colon had to be meticulously mobilized. Again, it was foreshortened and adherent to all surrounding structures. It was extremely difficult to mobilize the colon without injury to the colon, but we did succeed in mobilizing sufficient transverse colon to divide it with a MIGUELANGEL stapler and then create a defect in the right upper abdominal quadrant of the abdominal wall so as to mature a transverse colostomy. A mucous fistula was then created from the remaining transverse colon so as not to allow for a closed loop type situation with the transverse colon, descending colon, sigmoid colon remaining closed. The abdomen was profusely irrigated with 10 liters of antibiotic-containing solution, following which 2 new Jeanmarie Dooley drains were placed into the pelvis and into the upper abdomen and exteriorized separately secured with a 2-0 nylon suture. The abdominal wall was then closed using #1 double-stranded PDS suture and the wound left open packed with Betadine saturated Kerlix. Following closure of the abdomen, the stomas were matured using 2-0 Monocryl suture resulting in pink viable stomas remaining in the exterior, which were then covered with stoma bags. Following termination of the patient's abdominal procedure and evacuation of the infected material, the patient was re-draped, re-prepped. The surgeons were re-scrubbed. The scrub techs were re-scrubbed. New instrumentation was obtained. New gowns and gloves were donned and a tracheostomy was then performed with the patient's anterior cervical skin incised. The incision deepened with electrocautery. The incision down onto the tissues anterior to the trachea were divided with electrocautery. At this point, the patient was ventilated by room air so as to minimize the likelihood of an airway fire. The trachea was entered through the fourth ring. A tracheotomy was fashioned and was dilated to allow a 7.5 tracheostomy tube to be inserted. The tracheostomy tube was then placed as the endotracheal tube was being withdrawn. Reaching the final position, the tracheostomy was reported to capture CO2 immediately and return to normal exchange of gases and ventilation. The tracheostomy tube was insufflated with a 7 mL air into the balloon, further secured with 2-0 Prolene sutures and a circumferential umbilical tape. The patient remained relatively unchanged at the termination of the procedure and left the operating room following an accurate needle and sponge counts. Chest x-ray was ordered. It was pending at the time of this dictation. The patient's mother was thoroughly informed between the change of the procedures. She was informed in person about the abdominal findings and the procedure in the abdomen and then subsequently she was no longer present in the waiting room and was informed by phone upon termination of the tracheostomy at [phone]. MD REGINA Mir/JAYCE TID: [id number] RECEIPT: [id number]
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
--- NOTE | 2025-01-05 13:52 | DVHPN2 ---
Progress Note - Dictate Date Seen: Jan 05, 2025 Has the PT tested + for MRSA If YES, has PT been informed?: No Medical Necessity Reason Pt with a Central, PICC or Fol: Yes The following are medically ne: Navarrete Catheter Reason for navarrete catheter: Strict I&O vital signs Vital Sign Date Time Temp Pulse Resp B/P (MAP) Pulse Ox O2 Delivery O2 Flow Rate FiO2 01/05/25 13:16 127 19 98 01/05/25 13:00 137/97 01/05/25 12:57 30 01/05/25 08:00 Mechanical Ventilator+ 01/05/25 06:30 98.8 98.8 Total Intake and Output 01/04/25 01/04/25 01/05/25 15:00 23:00 07:00 Intake Total 1614.5 ml 1312.5 ml 1107.9 ml Output Total 3935 ml 1310 ml Balance 1614.5 ml -2622.5 ml -202.1 ml medications Current Medications Medications Dose Ordered Sig/Sherron Route Start Time Stop Time Status Last Admin Dose Admin Pantoprazole Sodium 40 mg DAILY IV 12/18/24 10:00 01/05/25 13:00 40 MG Midazolam HCl 50 ml @ 1 mls/hr Q24H IV 12/17/24 17:00 01/05/25 05:05 15 MLS/HR Valproate Sodium 250 mg/Sodium Chloride 52.5 ml @ 52.5 mls/hr BID IV 12/17/24 22:00 01/05/25 10:00 52.5 MLS/HR Propofol 100 ml @ 2.37 mls/hr Q24H IV 12/17/24 18:15 01/05/25 05:46 23.7 MLS/HR Fentanyl Citrate 250 ml @ 2.5 mls/hr Q24H IV 12/17/24 21:15 01/05/25 04:43 35 MLS/HR Norepinephrine Bitartrate 250 ml @ 3.75 mls/hr Q24H IV 12/18/24 01:45 12/20/24 00:01 30 MLS/HR Diagnostic Test (Pha) 1 strip Q6HR 12/20/24 18:00 01/05/25 12:00 1 STRIP Insulin Human Regular FOLLOW SLIDING SCALE Q6HR SC 12/20/24 18:00 01/05/25 13:36 4 UNITS Dextrose 50 ml UD IV 12/20/24 14:15 12/20/24 17:47 50 ML Acetaminophen 650 mg Q6HP PRN [place] 12/22/24 21:00 01/01/25 02:07 650 MG Sodium Chloride 40 meq/Potassium Chloride 40 meq/ Potassium Phosphate 11 meq/ Calcium Gluconate 2.3 meq/Magnesium Sulfate 8 meq/ Multivitamins 10 ml/Chromium/ Copper/Manganese/ Zinc 1 ml/Amino Acids/Dextrose/ Purified Water 1,450.4462 ml @ 60 mls/hr [id number] IV 12/26/24 22:00 12/27/24 21:59 Cancel Ipratropium [place] 0.5 mg Q6HR NEB 12/27/24 18:00 01/05/25 13:06 0.5 MG Levalbuterol HCl 1.25 mg Q6HR NEB 12/27/24 18:00 01/05/25 13:06 1.25 MG Amino Acids 0 ml @ 0 mls/hr PER PHARMACY IV 12/27/24 12:30 Sodium Chloride 10 ml QSHIFT@10,22 IV 12/27/24 22:00 01/05/25 13:02 10 ML Furosemide 40 mg DAILY IV 12/29/24 10:45 01/05/25 13:00 40 MG Artificial Tears 1 drop Q6HP PRN EACHEYE 12/29/24 23:45 Micafungin Sodium 100 mg/Sodium Chloride 100 ml @ 100 mls/hr Q24H IV 12/30/24 09:45 01/05/25 13:01 100 MLS/HR Linezolid 300 ml @ 150 mls/hr Q12HR IV 12/30/24 22:00 01/05/25 13:01 150 MLS/HR Meropenem 50 ml @ 17 mls/hr Q8HR IV 12/31/24 14:00 01/05/25 05:46 17 MLS/HR Enoxaparin Sodium 40 mg DAILY SC 12/31/24 14:00 01/04/25 09:16 40 MG Neostigmine Methylsulfate 0.5 mg Q4HR IV 01/03/25 10:00 01/05/25 13:13 0.5 MG Metoclopramide HCl 5 mg Q6HPRN PRN IV 01/03/25 09:45 Sodium Chloride 80 meq/Potassium Chloride 80 meq/ Calcium Gluconate 4.65 meq/ Magnesium Sulfate 30 meq/ Multivitamins 10 ml/Chromium/ Copper/Manganese/ Zinc 1 ml/Amino Acids/Dextrose/ Purified Water 1,588.5 ml @ 66 mls/hr Q24H5M IV 01/04/25 22:00 01/05/25 21:59 01/04/25 21:22 66 MLS/HR Ketorolac Tromethamine 30 mg Q6HPRN PRN IV 01/04/25 14:45 01/09/25 14:44 01/05/25 05:16 30 MG Ketamine HCl 50 mg [id number] PRN IV 01/04/25 15:00 01/05/25 07:00 Cancel Ketamine HCl 50 mg [id number] PRN IV 01/04/25 16:30 01/05/25 03:24 50 MG Acetaminophen 1,000 mg [id number] PRN IV 01/05/25 04:00 01/05/25 03:59 1,000 MG Sodium Chloride 90 meq/Potassium Chloride 90 meq/ Calcium Gluconate 2.3 meq/Magnesium Sulfate 30 meq/ Multivitamins 10 ml/Chromium/ Copper/Manganese/ Zinc 1 ml/Amino Acids/Dextrose/ Purified Water 1,590.9462 ml @ 66 mls/hr Q24H7M IV 01/05/25 22:00 01/06/25 21:59 laboratory and microbiology Laboratory Tests 01/05/25 02:59 Test 01/05/25 02:59 Range/Units Serum Glucose 104 74-106 mg/dL Assessment/Plan Rn Hospital rounds Impression Acute hypoxemic respiratory failure Fluid overload Sepsis S/p ex lap Patient seen and examined in ICU Events On mechanical ventilation S/p intubation PEEP 5, FiO2 30% Patient going to OR for abdominal washout Will follow up post procedure Labs and imaging reviewed ABG reviewed Management Vent support Titrate to maintain sats 90% or above Sedation for vent synchrony Continue antibiotics F/u cultures Bronchodilators Monitor renal function Monitor electrolytes Supplement as needed Pressors as needed for hemodynamic support To maintain a mean arterial pressure of 65 mmHg F/u general surgery DVT prophylaxis Critical care time 35 minutes Dietary Evaluation Review Comments: 1. TF: Vital AF@50ml/hr (90g protein, 1440kcal 973 free water) meeting Protein needs 83%, energy needs 80%. 2. TPN per pharmacy meeting 75% of his needs if TF not feasible or NPO>7 days. 3. Diet as tolerated per SMOKING PIPE LINER eval when off Vent Expected Outcomes/Goals: Preventing catabolism Plan discussed with: Other (Rn) RENARD VALVERDE MD Jan 05, 2025 13:52
--- NOTE | 2025-01-05 14:49 | DVH ---
AP portable chest CLINICAL INDICATION: NG tube placement Comparison: 01/05/2025 at 10:43 a.m. FINDINGS: Study done portably at 2:24 p.m. shows the tip of an NG tube in the stomach. Other lines an d tubes unchanged. Bilateral infiltrates or congestive changes. Left lower lobe retrocardiac consoli dation IMPRESSION: 1. NG tube tip in the stomach
--- NOTE | 2025-01-05 16:14 | DVHPN2 ---
Progress Note - Dictate Date Seen: Jan 05, 2025 Has the PT tested + for MRSA If YES, has PT been informed?: No Medical Necessity Reason Pt with a Central, PICC or Fol: Yes The following are medically ne: Navarrete Catheter Reason for navarrete catheter: Strict I&O Subjective Patient underwent a 2nd exploratory laparotomy; extensive operative report findings noted and surgical effort appreciated Surgical procedure included extensive lysis of adhesions, transverse colostomy and mucous fistula, abdominal lavage, evacuation of abdominal abscesses, repair of sigmoid defect. Patient also underwent a tracheostomy today Patient is now back in ICU on the ventilator Patient is on multiple antibiotics Recent echo EF was normal and no abnormalities. vital signs Vital Sign Date Time Temp Pulse Resp B/P (MAP) Pulse Ox O2 Delivery O2 Flow Rate FiO2 01/05/25 13:16 127 19 98 01/05/25 13:00 137/97 01/05/25 12:57 30 01/05/25 08:00 Mechanical Ventilator+ 01/05/25 06:30 98.8 98.8 Total Intake and Output 01/04/25 01/04/25 01/05/25 15:00 23:00 07:00 Intake Total 1614.5 ml 1312.5 ml 1107.9 ml Output Total 3935 ml 1310 ml Balance 1614.5 ml -2622.5 ml -202.1 ml medications Current Medications Medications Dose Ordered Sig/Sherron Route Start Time Stop Time Status Last Admin Dose Admin Pantoprazole Sodium 40 mg DAILY IV 12/18/24 10:00 01/05/25 13:00 40 MG Midazolam HCl 50 ml @ 1 mls/hr Q24H IV 12/17/24 17:00 01/05/25 15:46 15 MLS/HR Valproate Sodium 250 mg/Sodium Chloride 52.5 ml @ 52.5 mls/hr BID IV 12/17/24 22:00 01/05/25 10:00 52.5 MLS/HR Propofol 100 ml @ 2.37 mls/hr Q24H IV 12/17/24 18:15 01/05/25 15:47 23.7 MLS/HR Fentanyl Citrate 250 ml @ 2.5 mls/hr Q24H IV 12/17/24 21:15 01/05/25 15:56 35 MLS/HR Norepinephrine Bitartrate 250 ml @ 3.75 mls/hr Q24H IV 12/18/24 01:45 12/20/24 00:01 30 MLS/HR Diagnostic Test (Pha) 1 strip Q6HR 12/20/24 18:00 01/05/25 12:00 1 STRIP Insulin Human Regular FOLLOW SLIDING SCALE Q6HR SC 12/20/24 18:00 01/05/25 13:36 4 UNITS Dextrose 50 ml UD IV 12/20/24 14:15 12/20/24 17:47 50 ML Acetaminophen 650 mg Q6HP PRN DC 12/22/24 21:00 01/01/25 02:07 650 MG Sodium Chloride 40 meq/Potassium Chloride 40 meq/ Potassium Phosphate 11 meq/ Calcium Gluconate 2.3 meq/Magnesium Sulfate 8 meq/ Multivitamins 10 ml/Chromium/ Copper/Manganese/ Zinc 1 ml/Amino Acids/Dextrose/ Purified Water 1,450.4462 ml @ 60 mls/hr [id number] IV 12/26/24 22:00 12/27/24 21:59 Cancel Ipratropium [place] 0.5 mg Q6HR NEB 12/27/24 18:00 01/05/25 13:06 0.5 MG Levalbuterol HCl 1.25 mg Q6HR NEB 12/27/24 18:00 01/05/25 13:06 1.25 MG Amino Acids 0 ml @ 0 mls/hr PER PHARMACY IV 12/27/24 12:30 Sodium Chloride 10 ml QSHIFT@10,22 IV 12/27/24 22:00 01/05/25 13:02 10 ML Furosemide 40 mg DAILY IV 12/29/24 10:45 01/05/25 13:00 40 MG Artificial Tears 1 drop Q6HP PRN EACHEYE 12/29/24 23:45 Micafungin Sodium 100 mg/Sodium Chloride 100 ml @ 100 mls/hr Q24H IV 12/30/24 09:45 01/05/25 13:01 100 MLS/HR Linezolid 300 ml @ 150 mls/hr Q12HR IV 12/30/24 22:00 01/05/25 13:01 150 MLS/HR Meropenem 50 ml @ 17 mls/hr Q8HR IV 12/31/24 14:00 01/05/25 15:59 17 MLS/HR Enoxaparin Sodium 40 mg DAILY SC 12/31/24 14:00 01/04/25 09:16 40 MG Neostigmine Methylsulfate 0.5 mg Q4HR IV 01/03/25 10:00 01/05/25 13:13 0.5 MG Metoclopramide HCl 5 mg Q6HPRN PRN IV 01/03/25 09:45 Sodium Chloride 80 meq/Potassium Chloride 80 meq/ Calcium Gluconate 4.65 meq/ Magnesium Sulfate 30 meq/ Multivitamins 10 ml/Chromium/ Copper/Manganese/ Zinc 1 ml/Amino Acids/Dextrose/ Purified Water 1,588.5 ml @ 66 mls/hr Q24H5M IV 01/04/25 22:00 01/05/25 21:59 01/04/25 21:22 66 MLS/HR Ketorolac Tromethamine 30 mg Q6HPRN PRN IV 01/04/25 14:45 01/09/25 14:44 01/05/25 05:16 30 MG Ketamine HCl 50 mg [id number] PRN IV 01/04/25 15:00 01/05/25 07:00 Cancel Ketamine HCl 50 mg [id number] PRN IV 01/04/25 16:30 01/05/25 03:24 50 MG Acetaminophen 1,000 mg [id number] PRN IV 01/05/25 04:00 01/05/25 16:02 1,000 MG Sodium Chloride 90 meq/Potassium Chloride 90 meq/ Calcium Gluconate 2.3 meq/Magnesium Sulfate 30 meq/ Multivitamins 10 ml/Chromium/ Copper/Manganese/ Zinc 1 ml/Amino Acids/Dextrose/ Purified Water 1,590.9462 ml @ 66 mls/hr Q24H7M IV 01/05/25 22:00 01/06/25 21:59 objective General Appearance: Other (Fully intubated) HEENT: Atraumatic, PERRLA, EOMI, Mucous membr. moist/pink Respiratory: Normal air movement, Other (On ventilator) Cardiovascular: Regular rate, Normal S1, Normal S2, No murmurs Abdominal: Binder in place, soft, distended, no bowel sounds Extremities: No clubbing, No cyanosis, No edema, Normal pulses, No tenderness/swelling Skin: No rashes, No breakdown, No significant lesion Neuro: Normal speech, Normal tone, Sensation intact, Cranial nerves 3-12 NL, Reflexes 2+, Other (Generalized weakness) Psych/Mental Status: Mood NL, Other (Altered mental status) Rectal exam, normal tone no obstipation rectal mass or obstruction noted and no stool in the rectum laboratory and microbiology Laboratory Tests 01/05/25 02:59 Test 01/05/25 02:59 Range/Units Serum Glucose 104 74-106 mg/dL Problems(with codes): (1) 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 TF: Vital AF@50ml/hr (90g protein, 1440kcal 973 free water) meeting Protein needs 83%, energy needs 80%. 2. TPN per pharmacy meeting 75% of his needs if TF not feasible or NPO>7 days. 3. Diet as tolerated per KINDERGARTEN PARAPROFESSIONAL eval when off Vent Expected Outcomes/Goals: Preventing catabolism Plan discussed with: Other (None) MAO COLEMAN MD Jan 05, 2025 16:13
[2025-01-05] MEDS: ARTIFICIAL TEARS 15ml EACHEYE PRN (18:23)
[2025-01-05] MEDS: POTASSIUM CHLORIDE IV NR (21:38)
[2025-01-05] MEDS: [UNRECOGNIZED DRUG - OTHER] IV NR (21:38)
[2025-01-05] MEDS: CALCIUM GLUC IV NR (21:38)
[2025-01-05] MEDS: SODIUM CHLORIDE IV NR (21:38)
[2025-01-06] VITALS (107 sets, daily range): BP systolic 88–142; BP diastolic 48–93; PULSE 97–141; RESP 13–32; TEMP 96.4–99.9; O2SAT 88–100
[2025-01-06 03:21] LABS: Hemoglobin 8.1 g/dL (13.5-17.5); Mean Corpuscular Volume 89.8 fL (80.0-100.0)
[2025-01-06 03:26] LABS: Hematocrit 23.7 % (41.0-53.0); Mean Corpuscular Hemoglobin 30.7 pg (28.0-32.0)
[2025-01-06 03:37] LABS: Alanine Aminotransferase 13 U/L (7-40); Alkaline Phosphatase 96 U/L (46-116); Anion Gap 9 (5-15); BUN/Creatinine Ratio 58.8 (10.0-20.0); Blood Urea Nitrogen 20 mg/dL (9-23); Carbon Dioxide 26 mmol/L (20-31); Chloride 102 mmol/L (98-107); Magnesium 2.1 mg/dL (1.6-2.6); Potassium 4.0 mmol/L (3.5-5.1); Sodium 137 mmol/L (136-145)
[2025-01-06 03:38] LABS: Bilirubin, Total 0.5 mg/dL (0.2-1.0)
[2025-01-06 03:40] LABS: Albumin 2.7 g/dL (3.2-4.8); Calcium 7.7 mg/dL (8.7-10.4); Glucose 172 mg/dL (74-106); Total Protein 5.5 g/dL (5.7-8.2)
[2025-01-06 04:02] LABS: Total Cells Counted 100.0 (100)
--- NOTE | 2025-01-06 05:50 | DVH ---
EXAM: XY CHEST PORTABLE Indication: intubated Technique: Single frontal view of the chest was obtained Comparison: XY CHEST PORTABLE on DOS: 01/05/25, XY CHEST XRAY 1 VIEW on DOS: 01/05/25, XY CHEST XRAY 1 VIEW on DOS: 01/05/25, XY CHEST XRAY 1 VIEW on DOS: 01/04/25, XY CHEST XRAY 1 VIEW on DOS: 01/03/25 FINDINGS: Lines and Tubes: Unchanged tracheostomy tube. Enteric tube projects over the expected region of the s tomach. Right PICC tip projects over the cavoatrial junction. Lungs: Low lung volumes with multifocal consolidative opacities. Pleura: Small bilateral pleural effusions. No pneumothorax. Cardiomediastinal contours: Cardiomegaly. Bones: No acute osseous abnormality. IMPRESSION: No significant change compared to prior exam.
[2025-01-06 06:56] LABS: Base Excess 1.3 mmol/L (-2.0-3.0)
[2025-01-06] MEDS ORDERED: SODIUM CHLORIDE 0.9% 1,000 ML IV SCH (08:45)
--- NOTE | 2025-01-06 08:45 | DVHPN2 ---
Progress Note Date Seen: Jan 06, 2025 Has the PT tested + for MRSA If YES, has PT been informed?: No Medical Necessity Reason Pt with a Central, PICC or Fol: Yes The following are medically ne: Navarrete Catheter Reason for navarrete catheter: Strict I&O Objective vital signs Vital Sign Date Time Temp Pulse Resp B/P (MAP) Pulse Ox O2 Delivery O2 Flow Rate FiO2 01/06/25 08:27 105/66 01/06/25 07:53 98 20 99 30 01/06/25 06:15 97.5 97.5 01/06/25 06:00 Mechanical Ventilator+ Total Intake and Output 01/05/25 01/05/25 01/06/25 15:00 23:00 07:00 Intake Total 851.0 ml 1467.6 ml 1102.6 ml Output Total 300 ml 2710 ml 825 ml Balance 551.0 ml -1242.4 ml 277.6 ml medications Current Medications Medications Dose Ordered Sig/Sherron Route Start Time Stop Time Status Last Admin Dose Admin Pantoprazole Sodium 40 mg DAILY IV 12/18/24 10:00 01/05/25 13:00 40 MG Midazolam HCl 50 ml @ 1 mls/hr Q24H IV 12/17/24 17:00 01/06/25 08:18 15 MLS/HR Valproate Sodium 250 mg/Sodium Chloride 52.5 ml @ 52.5 mls/hr BID IV 12/17/24 22:00 01/05/25 21:35 52.5 MLS/HR Propofol 100 ml @ 2.37 mls/hr Q24H IV 12/17/24 18:15 01/06/25 08:27 23.7 MLS/HR Fentanyl Citrate 250 ml @ 2.5 mls/hr Q24H IV 12/17/24 21:15 01/06/25 05:09 35 MLS/HR Norepinephrine Bitartrate 250 ml @ 3.75 mls/hr Q24H IV 12/18/24 01:45 12/20/24 00:01 30 MLS/HR Diagnostic Test (Pha) 1 strip Q6HR 12/20/24 18:00 01/06/25 05:34 1 STRIP Insulin Human Regular FOLLOW SLIDING SCALE Q6HR SC 12/20/24 18:00 01/06/25 05:34 2 UNITS Dextrose 50 ml UD IV 12/20/24 14:15 12/20/24 17:47 50 ML Acetaminophen 650 mg Q6HP PRN AR 12/22/24 21:00 01/01/25 02:07 650 MG Sodium Chloride 40 meq/Potassium Chloride 40 meq/ Potassium Phosphate 11 meq/ Calcium Gluconate 2.3 meq/Magnesium Sulfate 8 meq/ Multivitamins 10 ml/Chromium/ Copper/Manganese/ Zinc 1 ml/Amino Acids/Dextrose/ Purified Water 1,450.4462 ml @ 60 mls/hr [id number] IV 12/26/24 22:00 12/27/24 21:59 Cancel Ipratropium [place] 0.5 mg Q6HR NEB 12/27/24 18:00 01/06/25 06:13 0.5 MG Levalbuterol HCl 1.25 mg Q6HR NEB 12/27/24 18:00 01/06/25 06:12 1.25 MG Amino Acids 0 ml @ 0 mls/hr PER PHARMACY IV 12/27/24 12:30 Sodium Chloride 10 ml QSHIFT@10,22 IV 12/27/24 22:00 01/05/25 21:36 10 ML Furosemide 40 mg DAILY IV 12/29/24 10:45 01/05/25 13:00 40 MG Artificial Tears 1 drop Q6HP PRN EACHEYE 12/29/24 23:45 01/05/25 18:23 1 DROP Micafungin Sodium 100 mg/Sodium Chloride 100 ml @ 100 mls/hr Q24H IV 12/30/24 09:45 01/05/25 13:01 100 MLS/HR Linezolid 300 ml @ 150 mls/hr Q12HR IV 12/30/24 22:00 01/05/25 21:33 150 MLS/HR Meropenem 50 ml @ 17 mls/hr Q8HR IV 12/31/24 14:00 01/06/25 05:33 17 MLS/HR Enoxaparin Sodium 40 mg DAILY SC 12/31/24 14:00 01/04/25 09:16 40 MG Metoclopramide HCl 5 mg Q6HPRN PRN IV 01/03/25 09:45 Ketorolac Tromethamine 30 mg Q6HPRN PRN IV 01/04/25 14:45 01/09/25 14:44 01/06/25 00:19 30 MG Ketamine HCl 50 mg [id number] PRN IV 01/04/25 15:00 01/05/25 07:00 Cancel Acetaminophen 1,000 mg [id number] PRN IV 01/05/25 04:00 01/05/25 16:02 1,000 MG Sodium Chloride 90 meq/Potassium Chloride 90 meq/ Calcium Gluconate 2.3 meq/Magnesium Sulfate 30 meq/ Multivitamins 10 ml/Chromium/ Copper/Manganese/ Zinc 1 ml/Amino Acids/Dextrose/ Purified Water 1,590.9462 ml @ 66 mls/hr Q24H7M IV 01/05/25 22:00 01/06/25 21:59 01/05/25 21:38 66 MLS/HR Sodium Chloride 1,000 ml @ 50 mls/hr Q20H IV 01/06/25 08:45 UNV laboratory and microbiology Laboratory Tests 01/06/25 02:37 Test 01/06/25 02:37 Range/Units Serum Glucose 172 H 74-106 mg/dL Problem List/Assessment/Plan Problem List/Assessment/Plan 12/26/24 PATIENT EXAMINED WITH HIS MOTHER IN ATTENDANCE. ABDOMEN IS TENSELY DISTENDED AND FIRM, CT NOW INDICATES ASCITES. i HAVE DISCUSSED WITH Dr.N COLEMAN AND SHE WILL PROCEED WITH SIGMOIDOSCOPY/COLONOSCOPY . HAVE EXPLAINED TO HIS MOTHER HE MAY NEED AN OPERATION TO RESECT ISCHEMIC COLON AND GIVE HIM A COLOSTOMY. WILL PROCEED DEPENDING OF RESULTS OF Dr. Teo COLEMAN'S FINDINGS 12/27/24 DR.N COLEMAN CALLED ME AFTER SHE PERFORMED A SIGMOIDOSCOPY ON THIS PATIENT DURING WHICH SHE EVACUATED 6 LITERS OF MURKY FLUID FROM THE PATIENT'S COLON AND SHE SUSPECTS THAT THERE MAY BE A PERFORATION , ON HER EXAMINATION SHE DID SEE EVIDENCE OF ISCHEMIA. AFTER A THOROUGH DISCUSSION WITH PATIENT'S MOTHER WE WILL PROCEED WITH EXPLORATORY LAPAROTOMY AND PROBABLE COLECTOMY WITH COLOSTOMY. EXPLAINED RISKS AND COMPLICATIONS TO PATIENT'S MOTHER. 12/28/24 abdomen soft, non distended, all 4 drains with serous drainage, clinically unchanged. WBC improved. 12/30/24 ADEQUATE URINE OUTPUT, ABDOMEN NON DISTENDED, SOFT, ALL 4 DRAINS WITH SERO SANGUINEOUS DRAINAGE. 01/01/25 left pleural fluid aspirated by radiologist somewhat cloudy appearing, cultures sent. abdominal fluid aspirated is clear (probably irrigation) fluid, continues with leukocytosis 01/02/25 wbc lower, slight improvement, Gastrografin enema shows no evidence of extravasation. 01/02/25 I was asked by patient's nurse to come and talk the the family: mother,sister,sister in law and younger brother were present .Family told me patient history which was previously not known to me; PATIENT HAS BEEN ILL WITH HIS ABDOMINAL PAIN AND NAUSEA AND INABILITY TO EMPTY HIS BOWELS FOR OVER A YEAR AND AT ONE POINT SPENT TWO MONTHS IN THE HOSPITAL WITHOUT IMPROVEMENT. BROTHER TOLD ME THAT WE "HAVE DONE MORE TO HELP HIS BROTHER THAN ANYONE ELSE HAS". i EXPLAINED THAT THE PATIENT HAD TO BE INTUBATED IN THE ER AFTER BECOMING VERY UNSTABLE COMPLAINING OF ABDOMINAL PIN, OBVIOUSLY HE HAS SOME SERIOUS PROBLEMS. EXPLAINED THAT AT THE OPERATION ON HIS ABDOMEN THERE WAS EVIDENCE OF OVERWHELMING ABDOMINAL INFECTION,ADHESIONS,AND MULTIPLE ABSCESSES. THE GASTROGRAFIN ENEMA TODAY SHOWS NO EVIDENCE OF LEAK FROM THE COLON BUT HIS BOWEL IS STILL NOT FUNCTIONING AND WE MAY HAVE TO DO A DIVERTING COLOSTOMY IF HIS BOWEL DOES NOT RESUME NORMAL FUNCTION SOON. ALSO THE PATIENT MAY NEED A TRACHEOSTOMY IF HE DOES NOT SHOW ABILITY TO BE EXTUBATED SOON. FAMILY ASKED MANY QUESTIONS ,ALL OF WHICH I ANSWERED SEEMINGLY TO THEIR SATISFACTION. THE FAMILY WISHES TO DO EVERYTHING POSSIBLE TO MAKE THE PATIENT WELL.I ASSURED THEM THAT I WILL TREAT THE PATIENT I WOULD WANT MY FAMILY TO BE TREATED AND OFFERED THEM TO TA;LK TO THEM ANYTIME THEY HAVE QUESTIONS. 01/03/25 mother and sister at bedside, abdomen soft and nondistended, drainage serous but with slight sediment, will ask nurses to irrigate , WBC little higher. will try to stimulate bowel activity with neostigmine and Reglan. will await request from primary team for tracheostomy ( have explained procedure to family members). 01/04/25 patient is febrile, abdomen is not distended and soft but the irrigation of drain number 4 produces fouls smelling murky fluid, the remaining three drains do not produce the same cat of fluid. due to persistent leukocytosis and fever, combined with the purulent quality of fluid we will proceed witth ex- loratory laparotomy tomorrow, Most likely will do a transverse colostomy as well as there is no movement of contrast in the colon. planned tracheostomy will be done at the same time. Patient's mother and brother present and fully informed. 01/06/25 sedated, urine output adequate, heart rate about 100, BP ok, wound being dressed, anasarca(low albumin), stomas viable without function. , Plan discussed with: Other Dietary Evaluation Review Comments: 1. TF: Vital AF@50ml/hr (90g protein, 1440kcal 973 free water) meeting Protein needs 83%, energy needs 80%. 2. TPN per pharmacy meeting 75% of his needs if TF not feasible or NPO>7 days. 3. Diet as tolerated per PAINT DEPARTMENT SUPERVISOR eval when off Vent Expected Outcomes/Goals: Preventing catabolism HUMPHREY RUBIO MD Jan 06, 2025 08:45
[2025-01-06] MEDS ORDERED: ACETAMINOPHEN 650 MG RECT SUPP PR PRN (09:15)
[2025-01-06] MEDS: SODIUM CHLORIDE 0.9% 1,000 ML IV SCH (09:24)
[2025-01-06] MEDS: ALBUMIN 25% 50 ML IV SCH (09:30)
--- NOTE | 2025-01-06 13:51 | DVHPN2 ---
Progress Note - Dictate Date Seen: Jan 06, 2025 Has the PT tested + for MRSA If YES, has PT been informed?: No Medical Necessity Reason Pt with a Central, PICC or Fol: Yes The following are medically ne: Navarrete Catheter Reason for navarrete catheter: Strict I&O vital signs Vital Sign Date Time Temp Pulse Resp B/P (MAP) Pulse Ox O2 Delivery O2 Flow Rate FiO2 01/06/25 13:30 99.7 137 20 126/77 (93) 96 99.7 01/06/25 12:00 30 01/06/25 08:00 Mechanical Ventilator+ Total Intake and Output 01/05/25 01/05/25 01/06/25 15:00 23:00 07:00 Intake Total 851.0 ml 1467.6 ml 1102.6 ml Output Total 300 ml 2710 ml 825 ml Balance 551.0 ml -1242.4 ml 277.6 ml medications Current Medications Medications Dose Ordered Sig/Sherron Route Start Time Stop Time Status Last Admin Dose Admin Pantoprazole Sodium 40 mg DAILY IV 12/18/24 10:00 01/06/25 10:29 40 MG Midazolam HCl 50 ml @ 1 mls/hr Q24H IV 12/17/24 17:00 01/06/25 12:46 15 MLS/HR Valproate Sodium 250 mg/Sodium Chloride 52.5 ml @ 52.5 mls/hr BID IV 12/17/24 22:00 01/06/25 09:36 52.5 MLS/HR Propofol 100 ml @ 2.37 mls/hr Q24H IV 12/17/24 18:15 01/06/25 12:05 23.7 MLS/HR Fentanyl Citrate 250 ml @ 2.5 mls/hr Q24H IV 12/17/24 21:15 01/06/25 12:40 35 MLS/HR Norepinephrine Bitartrate 250 ml @ 3.75 mls/hr Q24H IV 12/18/24 01:45 12/20/24 00:01 30 MLS/HR Diagnostic Test (Pha) 1 strip Q6HR 12/20/24 18:00 01/06/25 12:09 1 STRIP Insulin Human Regular FOLLOW SLIDING SCALE Q6HR SC 12/20/24 18:00 01/06/25 05:34 2 UNITS Dextrose 50 ml UD IV 12/20/24 14:15 12/20/24 17:47 50 ML Sodium Chloride 40 meq/Potassium Chloride 40 meq/ Potassium Phosphate 11 meq/ Calcium Gluconate 2.3 meq/Magnesium Sulfate 8 meq/ Multivitamins 10 ml/Chromium/ Copper/Manganese/ Zinc 1 ml/Amino Acids/Dextrose/ Purified Water 1,450.4462 ml @ 60 mls/hr [id number] IV 12/26/24 22:00 12/27/24 21:59 Cancel Ipratropium [place] 0.5 mg Q6HR NEB 12/27/24 18:00 01/06/25 11:16 0.5 MG Levalbuterol HCl 1.25 mg Q6HR NEB 12/27/24 18:00 01/06/25 11:16 1.25 MG Amino Acids 0 ml @ 0 mls/hr PER PHARMACY IV 12/27/24 12:30 Sodium Chloride 10 ml QSHIFT@10,22 IV 12/27/24 22:00 01/06/25 09:47 10 ML Furosemide 40 mg DAILY IV 12/29/24 10:45 01/06/25 10:29 40 MG Artificial Tears 1 drop Q6HP PRN EACHEYE 12/29/24 23:45 01/05/25 18:23 1 DROP Micafungin Sodium 100 mg/Sodium Chloride 100 ml @ 100 mls/hr Q24H IV 12/30/24 09:45 01/06/25 10:38 100 MLS/HR Linezolid 300 ml @ 150 mls/hr Q12HR IV 12/30/24 22:00 01/06/25 12:08 150 MLS/HR Meropenem 50 ml @ 17 mls/hr Q8HR IV 12/31/24 14:00 01/06/25 05:33 17 MLS/HR Enoxaparin Sodium 40 mg DAILY SC 12/31/24 14:00 01/06/25 10:00 40 MG Metoclopramide HCl 5 mg Q6HPRN PRN IV 01/03/25 09:45 Ketorolac Tromethamine 30 mg Q6HPRN PRN IV 01/04/25 14:45 01/09/25 14:44 01/06/25 00:19 30 MG Ketamine HCl 50 mg [id number] PRN IV 01/04/25 15:00 01/05/25 07:00 Cancel Acetaminophen 1,000 mg [id number] PRN IV 01/05/25 04:00 01/05/25 16:02 1,000 MG Sodium Chloride 90 meq/Potassium Chloride 90 meq/ Calcium Gluconate 2.3 meq/Magnesium Sulfate 30 meq/ Multivitamins 10 ml/Chromium/ Copper/Manganese/ Zinc 1 ml/Amino Acids/Dextrose/ Purified Water 1,590.9462 ml @ 66 mls/hr Q24H7M IV 01/05/25 22:00 01/06/25 21:59 01/05/25 21:38 66 MLS/HR Sodium Chloride 1,000 ml @ 60 mls/hr [id number] IV 01/06/25 09:00 01/06/25 09:24 60 MLS/HR Albumin Human 50 ml @ 100 mls/hr Q8H IV 01/06/25 09:00 01/07/25 01:29 01/06/25 09:30 100 MLS/HR Acetaminophen 650 mg Q6HP PRN [place] 01/06/25 09:15 Sodium Chloride 90 meq/Potassium Chloride 90 meq/ Calcium Gluconate 4.65 meq/ Magnesium Sulfate 28 meq/ Multivitamins 10 ml/Chromium/ Copper/Manganese/ Zinc 1 ml/Amino Acids/Dextrose/ Purified Water 1,645.5 ml @ 68 mls/hr [id number] IV 01/06/25 22:00 01/07/25 21:59 laboratory and microbiology Laboratory Tests 01/06/25 02:37 Test 01/06/25 02:37 Range/Units Serum Glucose 172 H 74-106 mg/dL Assessment/Plan Diet Clerk rounds Impression Acute hypoxemic respiratory failure Fluid overload Sepsis S/p ex lap Patient seen and examined in ICU Events On mechanical ventilation S/p tracheostomy PEEP 5, FiO2 30% Requires maximum sedation S/p tracheostomy and colectomy yesterday Labs and imaging reviewed ABG reviewed Management Vent support Titrate to maintain sats 90% or above Sedation for vent synchrony Trache care per RT protocols Continue antibiotics F/u cultures Bronchodilators Monitor renal function Monitor electrolytes Supplement as needed F/u general surgery DVT prophylaxis Critical care time 35 minutes Dietary Evaluation Review Comments: 1. TF: Vital AF@50ml/hr (90g protein, 1440kcal 973 free water) meeting Protein needs 83%, energy needs 80%. 2. TPN per pharmacy meeting 75% of his needs if TF not feasible or NPO>7 days. 3. Diet as tolerated per INTEGRATION TECHNICIAN eval when off Vent Expected Outcomes/Goals: Preventing catabolism Plan discussed with: Other (Rn) RENARD VALVERDE MD Jan 06, 2025 13:51
[2025-01-06] MEDS: MAALOX PLUS or MAALOX 30 ML PO SCH (16:10)
[2025-01-06] MEDS ORDERED: ROCURONIUM 10MG/ML 10ML VIAL IV ONE (17:22)
[2025-01-06] MEDS ORDERED: fentaNYL CITRATE 100 MCG/2 ML VL ONE (17:22)
[2025-01-06] MEDS: BUPIVACAINE HCL 0.25% P/F 10 ML VIAL ONE (17:24)
[2025-01-06] MEDS: LIDOCAINE W/ EPINEPHRINE 1% 20ML VIAL ONE (17:24)
[2025-01-06 17:32] LABS: INR 1.12 (0.9-1.15); Partial Thromboplastin Time 30.7 SEC (24.5-34.5); Prothrombin Time 11.7 sec (9.3-11.8)
--- NOTE | 2025-01-06 17:57 | DVHPN2 ---
Progress Note Date Seen: Jan 06, 2025 Has the PT tested + for MRSA If YES, has PT been informed?: No Medical Necessity Reason Pt with a Central, PICC or Fol: Yes The following are medically ne: Navarrete Catheter Reason for navarrete catheter: Strict I&O Objective vital signs Vital Sign Date Time Temp Pulse Resp B/P (MAP) Pulse Ox O2 Delivery O2 Flow Rate FiO2 01/06/25 15:40 119/71 01/06/25 15:15 99.1 127 20 98 99.1 01/06/25 14:00 Mechanical Ventilator+ 30 30 Total Intake and Output 01/05/25 01/05/25 01/06/25 15:00 23:00 07:00 Intake Total 851.0 ml 1467.6 ml 1102.6 ml Output Total 300 ml 2710 ml 825 ml Balance 551.0 ml -1242.4 ml 277.6 ml medications Current Medications Medications Dose Ordered Sig/Sherron Route Start Time Stop Time Status Last Admin Dose Admin Pantoprazole Sodium 40 mg DAILY IV 12/18/24 10:00 01/06/25 10:29 40 MG Midazolam HCl 50 ml @ 1 mls/hr Q24H IV 12/17/24 17:00 01/06/25 14:49 15 MLS/HR Valproate Sodium 250 mg/Sodium Chloride 52.5 ml @ 52.5 mls/hr BID IV 12/17/24 22:00 01/06/25 09:36 52.5 MLS/HR Propofol 100 ml @ 2.37 mls/hr Q24H IV 12/17/24 18:15 01/06/25 15:40 23.7 MLS/HR Fentanyl Citrate 250 ml @ 2.5 mls/hr Q24H IV 12/17/24 21:15 01/06/25 12:40 35 MLS/HR Norepinephrine Bitartrate 250 ml @ 3.75 mls/hr Q24H IV 12/18/24 01:45 12/20/24 00:01 30 MLS/HR Diagnostic Test (Pha) 1 strip Q6HR 12/20/24 18:00 01/06/25 12:09 1 STRIP Insulin Human Regular FOLLOW SLIDING SCALE Q6HR SC 12/20/24 18:00 01/06/25 05:34 2 UNITS Dextrose 50 ml UD IV 12/20/24 14:15 12/20/24 17:47 50 ML Sodium Chloride 40 meq/Potassium Chloride 40 meq/ Potassium Phosphate 11 meq/ Calcium Gluconate 2.3 meq/Magnesium Sulfate 8 meq/ Multivitamins 10 ml/Chromium/ Copper/Manganese/ Zinc 1 ml/Amino Acids/Dextrose/ Purified Water 1,450.4462 ml @ 60 mls/hr [id number] IV 12/26/24 22:00 12/27/24 21:59 Cancel Ipratropium Cadott 0.5 mg Q6HR NEB 12/27/24 18:00 01/06/25 11:16 0.5 MG Levalbuterol HCl 1.25 mg Q6HR NEB 12/27/24 18:00 01/06/25 11:16 1.25 MG Amino Acids 0 ml @ 0 mls/hr PER PHARMACY IV 12/27/24 12:30 Sodium Chloride 10 ml QSHIFT@10,22 IV 12/27/24 22:00 01/06/25 09:47 10 ML Furosemide 40 mg DAILY IV 12/29/24 10:45 01/06/25 10:29 40 MG Artificial Tears 1 drop Q6HP PRN EACHEYE 12/29/24 23:45 01/06/25 09:00 1 DROP Micafungin Sodium 100 mg/Sodium Chloride 100 ml @ 100 mls/hr Q24H IV 12/30/24 09:45 01/06/25 10:38 100 MLS/HR Linezolid 300 ml @ 150 mls/hr Q12HR IV 12/30/24 22:00 01/06/25 12:08 150 MLS/HR Meropenem 50 ml @ 17 mls/hr Q8HR IV 12/31/24 14:00 01/06/25 15:39 17 MLS/HR Metoclopramide HCl 5 mg Q6HPRN PRN IV 01/03/25 09:45 Ketorolac Tromethamine 30 mg Q6HPRN PRN IV 01/04/25 14:45 01/09/25 14:44 01/06/25 00:19 30 MG Ketamine HCl 50 mg [id number] PRN IV 01/04/25 15:00 01/05/25 07:00 Cancel Acetaminophen 1,000 mg [id number] PRN IV 01/05/25 04:00 01/05/25 16:02 1,000 MG Sodium Chloride 90 meq/Potassium Chloride 90 meq/ Calcium Gluconate 2.3 meq/Magnesium Sulfate 30 meq/ Multivitamins 10 ml/Chromium/ Copper/Manganese/ Zinc 1 ml/Amino Acids/Dextrose/ Purified Water 1,590.9462 ml @ 66 mls/hr Q24H7M IV 01/05/25 22:00 01/06/25 21:59 01/05/25 21:38 66 MLS/HR Sodium Chloride 1,000 ml @ 60 mls/hr [id number] IV 01/06/25 09:00 01/06/25 13:48 60 MLS/HR Albumin Human 50 ml @ 100 mls/hr Q8H IV 01/06/25 09:00 01/07/25 01:29 01/06/25 16:34 100 MLS/HR Acetaminophen 650 mg Q6HP PRN AK 01/06/25 09:15 Sodium Chloride 90 meq/Potassium Chloride 90 meq/ Calcium Gluconate 4.65 meq/ Magnesium Sulfate 28 meq/ Multivitamins 10 ml/Chromium/ Copper/Manganese/ Zinc 1 ml/Amino Acids/Dextrose/ Purified Water 1,645.5 ml @ 68 mls/hr [id number] IV 01/06/25 22:00 01/07/25 21:59 Al Hydrox/Mg Hydrox/Simethicone 30 ml Q8HR PO 01/06/25 16:00 01/06/25 16:10 30 ML laboratory and microbiology Laboratory Tests 01/06/25 02:37 Test 01/06/25 02:37 Range/Units Serum Glucose 172 H 74-106 mg/dL Problem List/Assessment/Plan Problem List/Assessment/Plan 12/26/24 PATIENT EXAMINED WITH HIS MOTHER IN ATTENDANCE. ABDOMEN IS TENSELY DISTENDED AND FIRM, CT NOW INDICATES ASCITES. i HAVE DISCUSSED WITH Dr.N COLEMAN AND SHE WILL PROCEED WITH SIGMOIDOSCOPY/COLONOSCOPY . HAVE EXPLAINED TO HIS MOTHER HE MAY NEED AN OPERATION TO RESECT ISCHEMIC COLON AND GIVE HIM A COLOSTOMY. WILL PROCEED DEPENDING OF RESULTS OF Dr. Teo COLEMAN'S FINDINGS 12/27/24 DR.N COLEMAN CALLED ME AFTER SHE PERFORMED A SIGMOIDOSCOPY ON THIS PATIENT DURING WHICH SHE EVACUATED 6 LITERS OF MURKY FLUID FROM THE PATIENT'S COLON AND SHE SUSPECTS THAT THERE MAY BE A PERFORATION , ON HER EXAMINATION SHE DID SEE EVIDENCE OF ISCHEMIA. AFTER A THOROUGH DISCUSSION WITH PATIENT'S MOTHER WE WILL PROCEED WITH EXPLORATORY LAPAROTOMY AND PROBABLE COLECTOMY WITH COLOSTOMY. EXPLAINED RISKS AND COMPLICATIONS TO PATIENT'S MOTHER. 12/28/24 abdomen soft, non distended, all 4 drains with serous drainage, clinically unchanged. WBC improved. 12/30/24 ADEQUATE URINE OUTPUT, ABDOMEN NON DISTENDED, SOFT, ALL 4 DRAINS WITH SERO SANGUINEOUS DRAINAGE. 01/01/25 left pleural fluid aspirated by radiologist somewhat cloudy appearing, cultures sent. abdominal fluid aspirated is clear (probably irrigation) fluid, continues with leukocytosis 01/02/25 wbc lower, slight improvement, Gastrografin enema shows no evidence of extravasation. 01/02/25 I was asked by patient's nurse to come and talk the the family: mother,sister,sister in law and younger brother were present .Family told me patient history which was previously not known to me; PATIENT HAS BEEN ILL WITH HIS ABDOMINAL PAIN AND NAUSEA AND INABILITY TO EMPTY HIS BOWELS FOR OVER A YEAR AND AT ONE POINT SPENT TWO MONTHS IN THE HOSPITAL WITHOUT IMPROVEMENT. BROTHER TOLD ME THAT WE "HAVE DONE MORE TO HELP HIS BROTHER THAN ANYONE ELSE HAS". i EXPLAINED THAT THE PATIENT HAD TO BE INTUBATED IN THE ER AFTER BECOMING VERY UNSTABLE COMPLAINING OF ABDOMINAL PIN, OBVIOUSLY HE HAS SOME SERIOUS PROBLEMS. EXPLAINED THAT AT THE OPERATION ON HIS ABDOMEN THERE WAS EVIDENCE OF OVERWHELMING ABDOMINAL INFECTION,ADHESIONS,AND MULTIPLE ABSCESSES. THE GASTROGRAFIN ENEMA TODAY SHOWS NO EVIDENCE OF LEAK FROM THE COLON BUT HIS BOWEL IS STILL NOT FUNCTIONING AND WE MAY HAVE TO DO A DIVERTING COLOSTOMY IF HIS BOWEL DOES NOT RESUME NORMAL FUNCTION SOON. ALSO THE PATIENT MAY NEED A TRACHEOSTOMY IF HE DOES NOT SHOW ABILITY TO BE EXTUBATED SOON. FAMILY ASKED MANY QUESTIONS ,ALL OF WHICH I ANSWERED SEEMINGLY TO THEIR SATISFACTION. THE FAMILY WISHES TO DO EVERYTHING POSSIBLE TO MAKE THE PATIENT WELL.I ASSURED THEM THAT I WILL TREAT THE PATIENT I WOULD WANT MY FAMILY TO BE TREATED AND OFFERED THEM TO TA;LK TO THEM ANYTIME THEY HAVE QUESTIONS. 01/03/25 mother and sister at bedside, abdomen soft and nondistended, drainage serous but with slight sediment, will ask nurses to irrigate , WBC little higher. will try to stimulate bowel activity with neostigmine and Reglan. will await request from primary team for tracheostomy ( have explained procedure to family members). 01/04/25 patient is febrile, abdomen is not distended and soft but the irrigation of drain number 4 produces fouls smelling murky fluid, the remaining three drains do not produce the same cat of fluid. due to persistent leukocytosis and fever, combined with the purulent quality of fluid we will proceed witth ex- loratory laparotomy tomorrow, Most likely will do a transverse colostomy as well as there is no movement of contrast in the colon. planned tracheostomy will be done at the same time. Patient's mother and brother present and fully informed. 01/06/25 sedated, urine output adequate, LEUKOCYTOSIS, WOUND OK, STOMAS VIABLE WITHOUT FUNCTION , URINE OUTPUT ADEQUATE. FAMILY NOT PRESENT 01/06 25 I WAS CALLED EMERGENTLY BECAUSE THE RESPIRATORY THERAPIST"ACCIDENTALLY TRANSECTED THE TRACHEOSTOMY CUFF PO0RT AND THE CUFF BECAME DEFLATED, i EXPLAINED THAT ON A TRACHEOSTOMY THAT WAS JUST DONE YESTERDAY A TUBE EXCHANGE NEEDS TO BE DONE IN THE OPERATING ROOM I CAME IN TO DO THE TRACHEOSTOMY EXCHANGE. Plan discussed with: Other Dietary Evaluation Review Comments: 1. TF: Vital AF@50ml/hr (90g protein, 1440kcal 973 free water) meeting Protein needs 83%, energy needs 80%. 2. TPN per pharmacy meeting 75% of his needs if TF not feasible or NPO>7 days. 3. Diet as tolerated per [employer] eval when off Vent Expected Outcomes/Goals: Preventing catabolism HUMPHREY RUBIO MD Jan 06, 2025 17:57
[2025-01-06] MEDS ORDERED: HYDROmorphone HCL 2 MG/ML VL/or syr ONE (18:04)
--- NOTE | 2025-01-06 19:06 | DVHOP ---
DATE OF SURGERY: 01/06/2025 The patient had a tracheostomy established 24 hours ago. During trach wound care, the windows laptop technician incidentally transected the tracheostomy cuff. The patient was taken to the operating room. He was intubated by Dr. Lewis. While intubated, the old tracheostomy tube was removed and a new 3.5 diameter tracheostomy tube was inserted. There was immediate recapture of CO2 and return of normal ventilation at the time of insertion of the tracheostomy tube, which was then secured with insufflation of the cuff and 2 Prolene sutures as well as the circumferential umbilical tape. The patient remained in unchanged clinical condition at the termination of procedure, left the operating room following an accurate needle and sponge counts. Chest x-ray is ordered, pending at this time. MD REGINA Mir/SHELLEY TID: [id number] RECEIPT: [id number]
--- NOTE | 2025-01-06 20:39 | DVH ---
CHEST RADIOGRAPH REASON FOR EXAM: CHANGE OF LEAKING TRACHESOTOMY COMPARISON: XY CHEST PORTABLE on DOS: 01/06/25, XY CHEST PORTABLE on DOS: 01/05/25, XY CHEST XRAY 1 VIE W on DOS: 01/05/25, XY CHEST XRAY 1 VIEW on DOS: 01/05/25, XY CHEST XRAY 1 VIEW on DOS: 01/04/25 TECHNIQUE: One view of the chest is provided FINDINGS: The cardiomediastinal silhouette is stable. There is bibasilar airspace disease, left-great [id number]. The tracheostomy tube appears unchanged in position. There is an enteric tube with th e tip and side hole projecting over the stomach. There is small left pleural effusion. There is no pn eumothorax. IMPRESSION: Bibasilar airspace disease, [id number]-right. Small left pleural effusion.
[2025-01-06] MEDS: [UNRECOGNIZED DRUG - OTHER] IV NR (21:53)
[2025-01-06] MEDS: SODIUM CHLORIDE IV NR (21:53)
[2025-01-06] MEDS: POTASSIUM CHLORIDE IV NR (21:53)
[2025-01-07] VITALS (114 sets, daily range): BP systolic 87–146; BP diastolic 45–92; PULSE 95–126; RESP 14–28; TEMP 97.9–100.8; O2SAT 91–100
[2025-01-07 03:52] LABS: Alanine Aminotransferase 12 U/L (7-40); Alkaline Phosphatase 83 U/L (46-116); Anion Gap 7 (5-15); BUN/Creatinine Ratio 50.0 (10.0-20.0); Blood Urea Nitrogen 19 mg/dL (9-23); Carbon Dioxide 30 mmol/L (20-31); Chloride 102 mmol/L (98-107); Glucose 105 mg/dL (74-106); Magnesium 1.9 mg/dL (1.6-2.6); Potassium 3.8 mmol/L (3.5-5.1); Sodium 139 mmol/L (136-145)
[2025-01-07 03:53] LABS: Bilirubin, Total 0.5 mg/dL (0.2-1.0)
[2025-01-07 03:54] LABS: Hematocrit 18.2 % (41.0-53.0); Mean Corpuscular Volume 89.3 fL (80.0-100.0)
[2025-01-07 03:57] LABS: Mean Corpuscular Hemoglobin 30.3 pg (28.0-32.0); Nucleated Red Blood Cells % 0.2 %
[2025-01-07 04:18] LABS: Hemoglobin 6.2 g/dL (13.5-17.5)
[2025-01-07 04:36] LABS: Albumin 3.0 g/dL (3.2-4.8); Calcium 8.1 mg/dL (8.7-10.4); Total Protein 5.5 g/dL (5.7-8.2)
--- NOTE | 2025-01-07 05:35 | DVH ---
CHEST RADIOGRAPH Indication: intubated Technique: Single frontal view of the chest was obtained COMPARISON: XY CHEST PORTABLE on DOS: 01/06/25, XY CHEST PORTABLE on DOS: 01/06/25, XY CHEST PORTABLE o n DOS: 01/05/25, XY CHEST XRAY 1 VIEW on DOS: 01/05/25, XY CHEST XRAY 1 VIEW on DOS: 01/05/25 FINDINGS: Lines and Tubes: Tracheostomy and enteric catheter in satisfactory position. Right PICC in satisfact ory position. Lungs: Multifocal airspace disease Pleura: No effusion. No pneumothorax. Cardiomediastinal contours: Cardiomegaly Bones: Unremarkable IMPRESSION: Lines and tubes in satisfactory position. No significant interval change.
[2025-01-07 07:05] LABS: Base Excess 4.0 mmol/L (-2.0-3.0)
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
--- NOTE | 2025-01-07 09:45 | DVHPN2 ---
Subjective Date Seen: Jan 07, 2025 Post op day Post op day: 2 Patient reports: Other (sedated , intubated) Objective Vitals Vital Sign Date Time Temp Pulse Resp B/P (MAP) Pulse Ox O2 Delivery O2 Flow Rate FiO2 01/07/25 08:45 97.9 113 16 102/61 (75) 99 97.9 01/07/25 08:11 30 01/07/25 08:00 Mechanical Ventilator+ Total Intake and Output 01/06/25 01/06/25 01/07/25 14:59 22:59 06:59 Intake Total 2110.6 ml 1511.4 ml 2013.59 ml Output Total 1260 ml 1910 ml 1175 ml Balance 850.6 ml -398.6 ml 838.59 ml Medications Current Medications Medications Dose Ordered Sig/Sherron Route Start Time Stop Time Status Last Admin Dose Admin Pantoprazole Sodium 40 mg DAILY IV 12/18/24 10:00 01/06/25 10:29 40 MG Midazolam HCl 50 ml @ 1 mls/hr Q24H IV 12/17/24 17:00 01/07/25 06:43 15 MLS/HR Valproate Sodium 250 mg/Sodium Chloride 52.5 ml @ 52.5 mls/hr BID IV 12/17/24 22:00 01/06/25 21:37 52.5 MLS/HR Propofol 100 ml @ 2.37 mls/hr Q24H IV 12/17/24 18:15 01/07/25 07:52 23.7 MLS/HR Fentanyl Citrate 250 ml @ 2.5 mls/hr Q24H IV 12/17/24 21:15 01/07/25 03:49 35 MLS/HR Norepinephrine Bitartrate 250 ml @ 3.75 mls/hr Q24H IV 12/18/24 01:45 01/07/25 00:59 3.75 MLS/HR Diagnostic Test (Pha) 1 strip Q6HR 12/20/24 18:00 01/07/25 05:53 1 STRIP Insulin Human Regular FOLLOW SLIDING SCALE Q6HR SC 12/20/24 18:00 01/06/25 05:34 2 UNITS Dextrose 50 ml UD IV 12/20/24 14:15 12/20/24 17:47 50 ML Sodium Chloride 40 meq/Potassium Chloride 40 meq/ Potassium Phosphate 11 meq/ Calcium Gluconate 2.3 meq/Magnesium Sulfate 8 meq/ Multivitamins 10 ml/Chromium/ Copper/Manganese/ Zinc 1 ml/Amino Acids/Dextrose/ Purified Water 1,450.4462 ml @ 60 mls/hr [id number] IV 12/26/24 22:00 12/27/24 21:59 Cancel Ipratropium [place] 0.5 mg Q6HR NEB 12/27/24 18:00 01/07/25 06:08 0.5 MG Levalbuterol HCl 1.25 mg Q6HR NEB 12/27/24 18:00 01/07/25 06:08 1.25 MG Amino Acids 0 ml @ 0 mls/hr PER PHARMACY IV 12/27/24 12:30 Sodium Chloride 10 ml QSHIFT@,22 IV 12/27/24 22:00 01/06/25 21:36 10 ML Furosemide 40 mg DAILY IV 12/29/24 10:45 01/06/25 10:29 40 MG Artificial Tears 1 drop Q6HP PRN EACHEYE 12/29/24 23:45 01/06/25 09:00 1 DROP Micafungin Sodium 100 mg/Sodium Chloride 100 ml @ 100 mls/hr Q24H IV 12/30/24 09:45 01/06/25 10:38 100 MLS/HR Linezolid 300 ml @ 150 mls/hr Q12HR IV 12/30/24 22:00 01/06/25 21:53 150 MLS/HR Meropenem 50 ml @ 17 mls/hr Q8HR IV 12/31/24 14:00 01/07/25 05:52 17 MLS/HR Metoclopramide HCl 5 mg Q6HPRN PRN IV 01/03/25 09:45 Ketorolac Tromethamine 30 mg Q6HPRN PRN IV 01/04/25 14:45 01/09/25 14:44 01/06/25 00:19 30 MG Ketamine HCl 50 mg [id number] PRN IV 01/04/25 15:00 01/05/25 07:00 Cancel Acetaminophen 1,000 mg [id number] PRN IV 01/05/25 04:00 01/07/25 04:40 1,000 MG Sodium Chloride 1,000 ml @ 60 mls/hr [id number] IV 01/06/25 09:00 01/06/25 13:48 60 MLS/HR Acetaminophen 650 mg Q6HP PRN [place] 01/06/25 09:15 Sodium Chloride 90 meq/Potassium Chloride 90 meq/ Calcium Gluconate 4.65 meq/ Magnesium Sulfate 28 meq/ Multivitamins 10 ml/Chromium/ Copper/Manganese/ Zinc 1 ml/Amino Acids/Dextrose/ Purified Water 1,645.5 ml @ 68 mls/hr [id number] IV 01/06/25 22:00 01/07/25 21:59 01/06/25 21:53 68 MLS/HR Al Hydrox/Mg Hydrox/Simethicone 30 ml Q8HR PO 01/06/25 16:00 01/07/25 05:53 30 ML General: Other (intubated) Cardiovascular: Normal, Regular rate and rhythm, Normal heart sound Abdominal: Normal, Soft, Normal inspection, No distension Extremities: Normal Skin: Normal, Normal inspection Labs and Microbiology Laboratory Tests 01/07/25 02:58 Test 01/07/25 02:58 Range/Units Serum Glucose 105 74-106 mg/dL Ass/Plan Labs and/or images reviewed: Labs reviewed by me Problem List 12/26/24 PATIENT EXAMINED WITH HIS MOTHER IN ATTENDANCE. ABDOMEN IS TENSELY DISTENDED AND FIRM, CT NOW INDICATES ASCITES. i HAVE DISCUSSED WITH Dr.N COLEMAN AND SHE WILL PROCEED WITH SIGMOIDOSCOPY/COLONOSCOPY . HAVE EXPLAINED TO HIS MOTHER HE MAY NEED AN OPERATION TO RESECT ISCHEMIC COLON AND GIVE HIM A COLOSTOMY. WILL PROCEED DEPENDING OF RESULTS OF Dr. Teo COLEMAN'S FINDINGS 12/27/24 DR.N COLEMAN CALLED ME AFTER SHE PERFORMED A SIGMOIDOSCOPY ON THIS PATIENT DURING WHICH SHE EVACUATED 6 LITERS OF MURKY FLUID FROM THE PATIENT'S COLON AND SHE SUSPECTS THAT THERE MAY BE A PERFORATION , ON HER EXAMINATION SHE DID SEE EVIDENCE OF ISCHEMIA. AFTER A THOROUGH DISCUSSION WITH PATIENT'S MOTHER WE WILL PROCEED WITH EXPLORATORY LAPAROTOMY AND PROBABLE COLECTOMY WITH COLOSTOMY. EXPLAINED RISKS AND COMPLICATIONS TO PATIENT'S MOTHER. 12/28/24 abdomen soft, non distended, all 4 drains with serous drainage, clinically unchanged. WBC improved. 12/30/24 ADEQUATE URINE OUTPUT, ABDOMEN NON DISTENDED, SOFT, ALL 4 DRAINS WITH SERO SANGUINEOUS DRAINAGE. 01/01/25 left pleural fluid aspirated by radiologist somewhat cloudy appearing, cultures sent. abdominal fluid aspirated is clear (probably irrigation) fluid, continues with leukocytosis 01/02/25 wbc lower, slight improvement, Gastrografin enema shows no evidence of extravasation. 01/02/25 I was asked by patient's nurse to come and talk the the family: mother,sister,sister in law and younger brother were present .Family told me patient history which was previously not known to me; PATIENT HAS BEEN ILL WITH HIS ABDOMINAL PAIN AND NAUSEA AND INABILITY TO EMPTY HIS BOWELS FOR OVER A YEAR AND AT ONE POINT SPENT TWO MONTHS IN THE HOSPITAL WITHOUT IMPROVEMENT. BROTHER TOLD ME THAT WE "HAVE DONE MORE TO HELP HIS BROTHER THAN ANYONE ELSE HAS". i EXPLAINED THAT THE PATIENT HAD TO BE INTUBATED IN THE ER AFTER BECOMING VERY UNSTABLE COMPLAINING OF ABDOMINAL PIN, OBVIOUSLY HE HAS SOME SERIOUS PROBLEMS. EXPLAINED THAT AT THE OPERATION ON HIS ABDOMEN THERE WAS EVIDENCE OF OVERWHELMING ABDOMINAL INFECTION,ADHESIONS,AND MULTIPLE ABSCESSES. THE GASTROGRAFIN ENEMA TODAY SHOWS NO EVIDENCE OF LEAK FROM THE COLON BUT HIS BOWEL IS STILL NOT FUNCTIONING AND WE MAY HAVE TO DO A DIVERTING COLOSTOMY IF HIS BOWEL DOES NOT RESUME NORMAL FUNCTION SOON. ALSO THE PATIENT MAY NEED A TRACHEOSTOMY IF HE DOES NOT SHOW ABILITY TO BE EXTUBATED SOON. FAMILY ASKED MANY QUESTIONS ,ALL OF WHICH I ANSWERED SEEMINGLY TO THEIR SATISFACTION. THE FAMILY WISHES TO DO EVERYTHING POSSIBLE TO MAKE THE PATIENT WELL.I ASSURED THEM THAT I WILL TREAT THE PATIENT I WOULD WANT MY FAMILY TO BE TREATED AND OFFERED THEM TO TAAndrewLK TO THEM ANYTIME THEY HAVE QUESTIONS. 01/03/25 mother and sister at bedside, abdomen soft and nondistended, drainage serous but with slight sediment, will ask nurses to irrigate , WBC little higher. will try to stimulate bowel activity with neostigmine and Reglan. will await request from primary team for tracheostomy ( have explained procedure to family members). 01/04/25 patient is febrile, abdomen is not distended and soft but the irrigation of drain number 4 produces fouls smelling murky fluid, the remaining three drains do not produce the same cat of fluid. due to persistent leukocytosis and fever, combined with the purulent quality of fluid we will proceed witth ex- loratory laparotomy tomorrow, Most likely will do a transverse colostomy as well as there is no movement of contrast in the colon. planned tracheostomy will be done at the same time. Patient's mother and brother present and fully informed. 01/06/25 sedated, urine output adequate, LEUKOCYTOSIS, WOUND OK, STOMAS VIABLE WITHOUT FUNCTION , URINE OUTPUT ADEQUATE. FAMILY NOT PRESENT 01/06 25 I WAS CALLED EMERGENTLY BECAUSE THE RESPIRATORY THERAPIST"ACCIDENTALLY TRANSECTED THE TRACHEOSTOMY CUFF PO0RT AND THE CUFF BECAME DEFLATED, i EXPLAINED THAT ON A TRACHEOSTOMY THAT WAS JUST DONE YESTERDAY A TUBE EXCHANGE NEEDS TO BE DONE IN THE OPERATING ROOM I CAME IN TO DO THE TRACHEOSTOMY EXCHANGE. Assessment/Plan diagnosed with colitis, awaiting colonoscopy patient intubated , sedated abdomen soft, non distended colonoscopy per GI pending will occur when patient stable will sign off , no surgical intervention at this time , recall if needed discussed with Dr. Krishna and agrees with plan Exploratory laparotomy, lysis of adhesions and removal of intraperitoneal fibrinous adhesions covering the entire peritoneal cavity. POD#4 patient intubated wound clean , saturated Kerlix over wound, wound dressing changed today all SHIRLENE drains with minimal serous fluid Plan: continue current treatment change every shift change 01/07/2025 Exploratory laparotomy, extensive lysis of adhesions, transverse colostomy and mucus fistula, abdominal lavage, evacuation of abdominal abscesses, repair of sigmoid defect. POD#2 - Patient is intubated and sedated. - Abdomen is soft and non-distended. - Surgical wound appears unremarkable. - The stoma is pink. There is some fluid present in the ostomy bag. - The mucus fistula appears normal. - Tracheostomy site is clean, with no signs of bleeding. Assessment: - The patient is currently receiving Levo-fed at a rate of 6 mcg. - Laboratory results and previous clinical notes have been reviewed. Plan: - A discussion will be held with Dr. Lopez regarding the patient's case. - The current treatment plan will be continued without changes at this time. Prognosis: Guarded Plan discussed with Dr. Krishna Visit Coding Surgery Date of Service if different f: Jan 07, 2025 Billing Provider: HUMPHREY KRISHNA MD Surgery Visit Codes: [id number] INP/OBS CARE(HIGH) CYRIL BROWN NP Jan 07, 2025 09:45
[2025-01-07 15:44] LABS: Hematocrit 16.9 % (41.0-53.0)
[2025-01-07 15:49] LABS: Hemoglobin 6.1 g/dL (13.5-17.5)
--- NOTE | 2025-01-07 18:14 | DVHPN2 ---
Progress Note - Dictate Date Seen: Jan 07, 2025 Has the PT tested + for MRSA If YES, has PT been informed?: No Medical Necessity Reason Pt with a Central, PICC or Fol: Yes The following are medically ne: Navarrete Catheter Reason for navarrete catheter: Strict I&O Subjective Post op Day # 2 s/p Exploratory laparotomy, extensive lysis of adhesions, transverse colostomy and mucus fistula, abdominal lavage, evacuation of abdominal abscesses, repair of sigmoid defect. Postop day 2. S/P tracheostomy Patient had a drop in his hemoglobin hematocrit to 6.3 After receiving 1 unit PRBC repeat hemoglobin was 6.1 He is receiving a 2nd unit PRBC No overt signs of GI bleeding are noted Patient is currently on Levophed at six mics per hour vital signs Vital Sign Date Time Temp Pulse Resp B/P (MAP) Pulse Ox O2 Delivery O2 Flow Rate FiO2 01/07/25 17:48 126/79 01/07/25 17:45 99.9 107 16 99.9 01/07/25 16:21 100 30 01/07/25 16:00 Mechanical Ventilator+ Total Intake and Output 01/06/25 01/06/25 01/07/25 15:00 23:00 07:00 Intake Total 2170.6 ml 1680.4 ml 1874.84 ml Output Total 1260 ml 1910 ml 1175 ml Balance 910.6 ml -229.6 ml 699.84 ml medications Current Medications Medications Dose Ordered Sig/Sherron Route Start Time Stop Time Status Last Admin Dose Admin Pantoprazole Sodium 40 mg DAILY IV 12/18/24 10:00 01/07/25 09:42 40 MG Midazolam HCl 50 ml @ 1 mls/hr Q24H IV 12/17/24 17:00 01/07/25 16:31 15 MLS/HR Valproate Sodium 250 mg/Sodium Chloride 52.5 ml @ 52.5 mls/hr BID IV 12/17/24 22:00 01/07/25 09:43 52.5 MLS/HR Propofol 100 ml @ 2.37 mls/hr Q24H IV 12/17/24 18:15 01/07/25 16:37 23.7 MLS/HR Fentanyl Citrate 250 ml @ 2.5 mls/hr Q24H IV 12/17/24 21:15 01/07/25 16:36 35 MLS/HR Norepinephrine Bitartrate 250 ml @ 3.75 mls/hr Q24H IV 12/18/24 01:45 01/07/25 00:59 3.75 MLS/HR Diagnostic Test (Pha) 1 strip Q6HR 12/20/24 18:00 01/07/25 17:42 1 STRIP Insulin Human Regular FOLLOW SLIDING SCALE Q6HR SC 12/20/24 18:00 01/06/25 05:34 2 UNITS Dextrose 50 ml UD IV 12/20/24 14:15 12/20/24 17:47 50 ML Sodium Chloride 40 meq/Potassium Chloride 40 meq/ Potassium Phosphate 11 meq/ Calcium Gluconate 2.3 meq/Magnesium Sulfate 8 meq/ Multivitamins 10 ml/Chromium/ Copper/Manganese/ Zinc 1 ml/Amino Acids/Dextrose/ Purified Water 1,450.4462 ml @ 60 mls/hr [id number] IV 12/26/24 22:00 12/27/24 21:59 Cancel Ipratropium [place] 0.5 mg Q6HR NEB 12/27/24 18:00 01/07/25 13:20 0.5 MG Levalbuterol HCl 1.25 mg Q6HR NEB 12/27/24 18:00 01/07/25 13:20 1.25 MG Amino Acids 0 ml @ 0 mls/hr PER PHARMACY IV 12/27/24 12:30 Sodium Chloride 10 ml QSHIFT@10,22 IV 12/27/24 22:00 01/07/25 09:58 10 ML Artificial Tears 1 drop Q6HP PRN EACHEYE 12/29/24 23:45 01/06/25 09:00 1 DROP Micafungin Sodium 100 mg/Sodium Chloride 100 ml @ 100 mls/hr Q24H IV 12/30/24 09:45 01/07/25 09:43 100 MLS/HR Linezolid 300 ml @ 150 mls/hr Q12HR IV 12/30/24 22:00 01/07/25 10:48 150 MLS/HR Meropenem 50 ml @ 17 mls/hr Q8HR IV 12/31/24 14:00 01/07/25 13:16 17 MLS/HR Metoclopramide HCl 5 mg Q6HPRN PRN IV 01/03/25 09:45 Ketamine HCl 50 mg [id number] PRN IV 01/04/25 15:00 01/05/25 07:00 Cancel Acetaminophen 1,000 mg [id number] PRN IV 01/05/25 04:00 01/07/25 04:40 1,000 MG Sodium Chloride 1,000 ml @ 60 mls/hr [id number] IV 01/06/25 09:00 01/07/25 15:30 60 MLS/HR Acetaminophen 650 mg Q6HP PRN [place] 01/06/25 09:15 Sodium Chloride 90 meq/Potassium Chloride 90 meq/ Calcium Gluconate 4.65 meq/ Magnesium Sulfate 28 meq/ Multivitamins 10 ml/Chromium/ Copper/Manganese/ Zinc 1 ml/Amino Acids/Dextrose/ Purified Water 1,645.5 ml @ 68 mls/hr [id number] IV 01/06/25 22:00 01/07/25 21:59 01/06/25 21:53 68 MLS/HR Sodium Chloride 80 meq/Sodium Phosphate 10 meq/ Potassium Chloride 110 meq/ Calcium Gluconate 4.65 meq/ Magnesium Sulfate 30 meq/ Multivitamins 10 ml/Chromium/ Copper/Manganese/ Zinc 1 ml/Amino Acids/Dextrose/ Purified Water 1,656 ml @ 69 mls/hr Q24H IV 01/07/25 22:00 01/08/25 21:59 objective General Appearance: On ventilator, FiO2 30% HEENT: Atraumatic, PERRLA, EOMI, Mucous membr. moist/pink Respiratory: Normal air movement, Other (On ventilator) Cardiovascular: Regular rate, Normal S1, Normal S2, No murmurs Abdominal: Binder in place, soft, distended, no bowel sounds; minimal colostomy liquid output Extremities: No clubbing, No cyanosis, No edema, Normal pulses, No tenderness/swelling Skin: No rashes, No breakdown, No significant lesion Neuro: Normal speech, Normal tone, Sensation intact, Cranial nerves 3-12 NL, Reflexes 2+, Other (Generalized weakness) Psych/Mental Status: Mood NL, Other (Altered mental status) Rectal exam, normal tone no obstipation rectal mass or obstruction noted and no stool in the rectum laboratory and microbiology Laboratory Tests 01/07/25 15:30 01/07/25 02:58 Test 01/07/25 02:58 Range/Units Serum Glucose 105 74-106 mg/dL Problems(with codes): (1) Sigmoid colon injury (2) Septicemia due to vancomycin resistant Enterococcus (VRE) species (3) Peritonitis (4) Constipation (5) Acute respiratory failure (6) Sepsis, unspecified organism (7) Generalized weakness (8) Abnormal finding on GI tract imaging Prognosis Plan Increase Protonix to 40 mg q.12 hours Monitor serial H&H Hold any blood thinners Monitor for signs of bleeding Patient is on IV antibiotics Continue IV TPN Prognosis still remains guarded and continue ICU supportive care Dietary Evaluation Review Comments: 1. TF: Vital AF@50ml/hr (90g protein, 1440kcal 973 free water) meeting Protein needs 83%, energy needs 80%. 2. TPN per pharmacy meeting 75% of his needs if TF not feasible or NPO>7 days. 3. Diet as tolerated per TECHNICAL SME eval when off Vent Expected Outcomes/Goals: Preventing catabolism Plan discussed with: Other (ICU Nurse) MAO COLEMAN MD Jan 07, 2025 18:14
[2025-01-07 18:34] LABS: INR 1.06 (0.9-1.15); Partial Thromboplastin Time 33.6 SEC (24.5-34.5); Prothrombin Time 11.2 sec (9.3-11.8)
[2025-01-07] MEDS: TPN PER PHARMACY IV NR (22:16)
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
[2025-01-08] VITALS (113 sets, daily range): BP systolic 97–152; BP diastolic 56–101; PULSE 95–130; RESP 16–39; TEMP 97.5–101.7; O2SAT 90–100
[2025-01-08 03:48] LABS: INR 1.03 (0.9-1.15); Partial Thromboplastin Time 33.3 SEC (24.5-34.5); Prothrombin Time 10.9 sec (9.3-11.8)
[2025-01-08 03:51] LABS: Alanine Aminotransferase 14 U/L (7-40); Anion Gap 8 (5-15); BUN/Creatinine Ratio 48.5 (10.0-20.0); Bilirubin, Total 0.6 mg/dL (0.2-1.0); Blood Urea Nitrogen 16 mg/dL (9-23); Carbon Dioxide 27 mmol/L (20-31); Chloride 103 mmol/L (98-107); Glucose 100 mg/dL (74-106); Magnesium 1.9 mg/dL (1.6-2.6); Potassium 3.7 mmol/L (3.5-5.1); Sodium 138 mmol/L (136-145)
[2025-01-08 03:56] LABS: Albumin 2.8 g/dL (3.2-4.8); Alkaline Phosphatase 130 U/L (46-116); Calcium 7.8 mg/dL (8.7-10.4); Total Protein 5.4 g/dL (5.7-8.2)
--- NOTE | 2025-01-08 04:53 | DVH ---
CHEST RADIOGRAPH Indication: intubated Technique: Single frontal view of the chest was obtained COMPARISON: XY CHEST XRAY 1 VIEW on DOS: 01/07/25, XY CHEST PORTABLE on DOS: 01/06/25, XY CHEST PORTABL E on DOS: 01/06/25, XY CHEST PORTABLE on DOS: 01/05/25, XY CHEST XRAY 1 VIEW on DOS: 01/05/25 FINDINGS: Lines and Tubes: Unchanged. Lungs: Stable small left pleural effusion. Slight interval improvement in multifocal bilateral pulmon lauryn airspace disease. No pneumothorax. Cardiomediastinal contours: Unremarkable Bones: Unremarkable IMPRESSION: 1. Slight interval improvement in multifocal bilateral pulmonary airspace disease. 2. Small left pleural effusion. 3. Lines and tubes unchanged.
[2025-01-08 05:55] LABS: Nucleated Red Blood Cells % 0.1 %
[2025-01-08 05:57] LABS: Hematocrit 26.1 % (41.0-53.0); Hemoglobin 9.1 g/dL (13.5-17.5); Mean Corpuscular Hemoglobin 30.1 pg (28.0-32.0); Mean Corpuscular Volume 85.9 fL (80.0-100.0)
[2025-01-08 07:10] LABS: Base Excess 1.3 mmol/L (-2.0-3.0)
[2025-01-08] MEDS: HYDROmorphone HCL 2 MG/ML VL/or syr IV PRN (16:57)
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
--- NOTE | 2025-01-08 20:32 | DVHPN2 ---
Progress Note - Dictate Date Seen: Jan 08, 2025 Has the PT tested + for MRSA If YES, has PT been informed?: No Medical Necessity Reason Pt with a Central, PICC or Fol: Yes The following are medically ne: Navarrete Catheter Reason for navarrete catheter: Strict I&O Subjective Post op Day # 3 s/p Exploratory laparotomy, extensive lysis of adhesions, transverse colostomy and mucus fistula, abdominal lavage, evacuation of abdominal abscesses, repair of sigmoid defect. Postop day 3. S/P tracheostomy Hemoglobin stable at 9 after 2 units PRBC No active GI bleeding reported Leukocytosis improving Colostomy output minimal mucoid Patient is on multiple antibiotics and IV Levophed vital signs Vital Sign Date Time Temp Pulse Resp B/P (MAP) Pulse Ox O2 Delivery O2 Flow Rate FiO2 01/08/25 19:45 123 22 136/93 (107) 100 01/08/25 19:15 101.3 101.3 01/08/25 18:28 30 01/08/25 18:00 Mechanical Ventilator+ Total Intake and Output 01/07/25 01/07/25 01/08/25 14:59 22:59 06:59 Intake Total 2241.10 ml 2727.35 ml 2889.6 ml Output Total 3290 ml 1250 ml Balance 2241.10 ml -562.65 ml 1639.6 ml medications Current Medications Medications Dose Ordered Sig/Sherron Route Start Time Stop Time Status Last Admin Dose Admin Pantoprazole Sodium 40 mg DAILY IV 12/18/24 10:00 01/08/25 09:30 40 MG Midazolam HCl 50 ml @ 1 mls/hr Q24H IV 12/17/24 17:00 01/08/25 19:40 15 MLS/HR Valproate Sodium 250 mg/Sodium Chloride 52.5 ml @ 52.5 mls/hr BID IV 12/17/24 22:00 01/08/25 10:59 52.5 MLS/HR Propofol 100 ml @ 2.37 mls/hr Q24H IV 12/17/24 18:15 01/08/25 19:13 2.37 MLS/HR Fentanyl Citrate 250 ml @ 2.5 mls/hr Q24H IV 12/17/24 21:15 01/08/25 19:39 35 MLS/HR Norepinephrine Bitartrate 250 ml @ 3.75 mls/hr Q24H IV 12/18/24 01:45 01/07/25 00:59 3.75 MLS/HR Diagnostic Test (Pha) 1 strip Q6HR 12/20/24 18:00 01/08/25 18:03 1 STRIP Insulin Human Regular FOLLOW SLIDING SCALE Q6HR SC 12/20/24 18:00 01/06/25 05:34 2 UNITS Dextrose 50 ml UD IV 12/20/24 14:15 12/20/24 17:47 50 ML Sodium Chloride 40 meq/Potassium Chloride 40 meq/ Potassium Phosphate 11 meq/ Calcium Gluconate 2.3 meq/Magnesium Sulfate 8 meq/ Multivitamins 10 ml/Chromium/ Copper/Manganese/ Zinc 1 ml/Amino Acids/Dextrose/ Purified Water 1,450.4462 ml @ 60 mls/hr [id number] IV 12/26/24 22:00 12/27/24 21:59 Cancel Ipratropium [place] 0.5 mg Q6HR NEB 12/27/24 18:00 01/08/25 18:28 0.5 MG Levalbuterol HCl 1.25 mg Q6HR NEB 12/27/24 18:00 01/08/25 18:28 1.25 MG Amino Acids 0 ml @ 0 mls/hr PER PHARMACY IV 12/27/24 12:30 Sodium Chloride 10 ml QSHIFT@10,22 IV 12/27/24 22:00 01/08/25 09:30 10 ML Artificial Tears 1 drop Q6HP PRN EACHEYE 12/29/24 23:45 01/06/25 09:00 1 DROP Micafungin Sodium 100 mg/Sodium Chloride 100 ml @ 100 mls/hr Q24H IV 12/30/24 09:45 01/08/25 09:36 100 MLS/HR Linezolid 300 ml @ 150 mls/hr Q12HR IV 12/30/24 22:00 01/08/25 10:23 150 MLS/HR Meropenem 50 ml @ 17 mls/hr Q8HR IV 12/31/24 14:00 01/08/25 13:56 17 MLS/HR Ketamine HCl 50 mg [id number] PRN IV 01/04/25 15:00 01/05/25 07:00 Cancel Acetaminophen 1,000 mg [id number] PRN IV 01/05/25 04:00 01/08/25 09:29 1,000 MG Sodium Chloride 80 meq/Sodium Phosphate 10 meq/ Potassium Chloride 110 meq/ Calcium Gluconate 4.65 meq/ Magnesium Sulfate 30 meq/ Multivitamins 10 ml/Chromium/ Copper/Manganese/ Zinc 1 ml/Amino Acids/Dextrose/ Purified Water 1,656 ml @ 69 mls/hr Q24H IV 01/07/25 22:00 01/08/25 21:59 01/07/25 22:16 69 MLS/HR Sodium Chloride 90 meq/Potassium Chloride 90 meq/ Calcium Gluconate 4.65 meq/ Magnesium Sulfate 32 meq/ Multivitamins 10 ml/Chromium/ Copper/Manganese/ Zinc 1 ml/Amino Acids/Dextrose/ Purified Water 1,646.5 ml @ 68 mls/hr [id number] IV 01/08/25 22:00 01/09/25 21:59 Hydromorphone HCl 1 mg Q4HPRN PRN IV 01/08/25 16:30 01/08/25 16:57 1 MG objective General Appearance: On ventilator, FiO2 30% HEENT: Atraumatic, PERRLA, EOMI, Mucous membr. moist/pink Respiratory: Normal air movement, Other (On ventilator) Cardiovascular: Regular rate, Normal S1, Normal S2, No murmurs Abdominal: Binder in place, soft, distended, no bowel sounds; minimal colostomy liquid output Extremities: No clubbing, No cyanosis, No edema, Normal pulses, No tenderness/swelling Skin: No rashes, No breakdown, No significant lesion Neuro: Normal speech, Normal tone, Sensation intact, Cranial nerves 3-12 NL, Reflexes 2+, Other (Generalized weakness) Psych/Mental Status: Mood NL, Other (Altered mental status) Rectal exam, normal tone no obstipation rectal mass or obstruction noted and no stool in the rectum laboratory and microbiology Laboratory Tests 01/08/25 05:20 01/08/25 02:50 Test 01/08/25 02:50 Range/Units Serum Glucose 100 74-106 mg/dL Problems(with codes): (1) Septicemia due to vancomycin resistant Enterococcus (VRE) species (2) Neuropathy involving both lower extremities (3) Constipation (4) Sepsis, unspecified organism (5) Generalized weakness (6) Leukocytosis (7) Abnormal finding on GI tract imaging (8) Leukocytosis, unspecified (9) Abdominal pain Prognosis Plan Continue ICU care, ventilatory support Patient is on IV TPN for nutritional support Broad-spectrum antibiotics Cooling measures four low-grade temperature Sepsis protocol Monitor labs Prognosis remains guarded I will follow up Dietary Evaluation Review Comments: 1. TF: Vital AF@50ml/hr (90g protein, 1440kcal 973 free water) meeting Protein needs 83%, energy needs 80%. 2. TPN per pharmacy meeting 75% of his needs if TF not feasible or NPO>7 days. 3. Diet as tolerated per RELAY REPAIRER eval when off Vent Expected Outcomes/Goals: Preventing catabolism Plan discussed with: Other (ICU Nurse and Dr Jameson) MAO COLEMAN MD Jan 08, 2025 20:32
[2025-01-08] MEDS: TPN PER PHARMACY IV NR ×2 (21:58→22:00)
[2025-01-09] VITALS (106 sets, daily range): BP systolic 112–155; BP diastolic 75–106; PULSE 94–134; RESP 17–49; TEMP 96.6–100; O2SAT 85–100
[2025-01-09 03:33] LABS: Hematocrit 27.5 % (41.0-53.0); Hemoglobin 9.6 g/dL (13.5-17.5); Mean Corpuscular Hemoglobin 30.0 pg (28.0-32.0); Mean Corpuscular Volume 86.2 fL (80.0-100.0); Nucleated Red Blood Cells % 0.0 %
[2025-01-09 03:43] LABS: Alanine Aminotransferase 20 U/L (7-40); Anion Gap 8 (5-15); BUN/Creatinine Ratio 35.3 (10.0-20.0); Blood Urea Nitrogen 12 mg/dL (9-23); Carbon Dioxide 27 mmol/L (20-31); Chloride 101 mmol/L (98-107); Glucose 105 mg/dL (74-106); Magnesium 1.9 mg/dL (1.6-2.6); Potassium 3.7 mmol/L (3.5-5.1); Total Protein 6.0 g/dL (5.7-8.2)
[2025-01-09 03:44] LABS: Bilirubin, Total 0.6 mg/dL (0.2-1.0)
[2025-01-09 03:45] LABS: Alkaline Phosphatase 175 U/L (46-116); Sodium 136 mmol/L (136-145)
[2025-01-09 03:46] LABS: Albumin 3.1 g/dL (3.2-4.8); Calcium 8.0 mg/dL (8.7-10.4)
--- NOTE | 2025-01-09 05:05 | DVH ---
CHEST RADIOGRAPH Indication: intubated Technique: Single frontal view of the chest was obtained COMPARISON: XY CHEST XRAY 1 VIEW on DOS: 01/08/25, XY CHEST XRAY 1 VIEW on DOS: 01/07/25, XY CHEST PORT ABLE on DOS: 01/06/25, XY CHEST PORTABLE on DOS: 01/06/25, XY CHEST PORTABLE on DOS: 01/05/25 FINDINGS: Lines and Tubes: Tracheostomy, enteric catheter and right PICC in satisfactory position. Lungs: Multifocal airspace disease. Pleura: No effusion. No pneumothorax. Cardiomediastinal contours: Cardiomegaly Bones: Unremarkable IMPRESSION: Increased multifocal airspace disease.
[2025-01-09 06:34] LABS: Base Excess 1.7 mmol/L (-2.0-3.0)
[2025-01-09] MEDS ORDERED: TPN PER PHARMACY IV NR ×2 (09:30→22:00)
--- NOTE | 2025-01-09 10:19 | DVHPN2 ---
Progress Note Date Seen: Jan 09, 2025 Has the PT tested + for MRSA If YES, has PT been informed?: No Medical Necessity Reason Pt with a Central, PICC or Fol: Yes The following are medically ne: Navarrete Catheter Reason for navarrete catheter: Strict I&O Objective vital signs Vital Sign Date Time Temp Pulse Resp B/P (MAP) Pulse Ox O2 Delivery O2 Flow Rate FiO2 01/09/25 09:46 117 34 144/98 (113) 93 50 01/09/25 08:00 Mechanical Ventilator+ 01/09/25 07:00 98.6 98.6 Total Intake and Output 01/08/25 01/08/25 01/09/25 15:00 23:00 07:00 Intake Total 2123.1 ml 1472.1 ml 1293.63 ml Output Total 3300 ml 3500 ml Balance 2123.1 ml -1827.9 ml -2206.37 ml medications Current Medications Medications Dose Ordered Sig/Sherron Route Start Time Stop Time Status Last Admin Dose Admin Pantoprazole Sodium 40 mg DAILY IV 12/18/24 10:00 01/09/25 09:28 40 MG Midazolam HCl 50 ml @ 1 mls/hr Q24H IV 12/17/24 17:00 01/09/25 08:24 15 MLS/HR Valproate Sodium 250 mg/Sodium Chloride 52.5 ml @ 52.5 mls/hr BID IV 12/17/24 22:00 01/09/25 09:29 52.5 MLS/HR Propofol 100 ml @ 2.37 mls/hr Q24H IV 12/17/24 18:15 01/09/25 06:53 23.7 MLS/HR Fentanyl Citrate 250 ml @ 2.5 mls/hr Q24H IV 12/17/24 21:15 01/09/25 08:35 35 MLS/HR Norepinephrine Bitartrate 250 ml @ 3.75 mls/hr Q24H IV 12/18/24 01:45 01/07/25 00:59 3.75 MLS/HR Diagnostic Test (Pha) 1 strip Q6HR 12/20/24 18:00 01/09/25 05:51 1 STRIP Insulin Human Regular FOLLOW SLIDING SCALE Q6HR SC 12/20/24 18:00 01/06/25 05:34 2 UNITS Dextrose 50 ml UD IV 12/20/24 14:15 12/20/24 17:47 50 ML Sodium Chloride 40 meq/Potassium Chloride 40 meq/ Potassium Phosphate 11 meq/ Calcium Gluconate 2.3 meq/Magnesium Sulfate 8 meq/ Multivitamins 10 ml/Chromium/ Copper/Manganese/ Zinc 1 ml/Amino Acids/Dextrose/ Purified Water 1,450.4462 ml @ 60 mls/hr [id number] IV 12/26/24 22:00 12/27/24 21:59 Cancel Ipratropium [place] 0.5 mg Q6HR NEB 12/27/24 18:00 01/09/25 05:59 0.5 MG Levalbuterol HCl 1.25 mg Q6HR NEB 12/27/24 18:00 01/09/25 05:59 1.25 MG Amino Acids 0 ml @ 0 mls/hr PER PHARMACY IV 12/27/24 12:30 Sodium Chloride 10 ml QSHIFT@10,22 IV 12/27/24 22:00 01/09/25 09:29 10 ML Artificial Tears 1 drop Q6HP PRN EACHEYE 12/29/24 23:45 01/06/25 09:00 1 DROP Micafungin Sodium 100 mg/Sodium Chloride 100 ml @ 100 mls/hr Q24H IV 12/30/24 09:45 01/09/25 09:19 100 MLS/HR Linezolid 300 ml @ 150 mls/hr Q12HR IV 12/30/24 22:00 01/09/25 09:29 150 MLS/HR Meropenem 50 ml @ 17 mls/hr Q8HR IV 12/31/24 14:00 01/09/25 05:51 17 MLS/HR Ketamine HCl 50 mg [id number] PRN IV 01/04/25 15:00 01/05/25 07:00 Cancel Acetaminophen 1,000 mg [id number] PRN IV 01/05/25 04:00 01/08/25 21:45 1,000 MG Hydromorphone HCl 1 mg Q4HPRN PRN IV 01/08/25 16:30 01/09/25 07:33 1 MG Sodium Chloride 120 meq/Potassium Chloride 50 meq/ Potassium Acetate 50 meq/Calcium Gluconate 4.65 meq/Magnesium Sulfate 34 meq/ Multivitamins 10 ml/Chromium/ Copper/Manganese/ Zinc 1 ml/Amino Acids/Dextrose/ Purified Water 1,659.5 ml @ 68.108 mls/hr [id number] IV 01/09/25 22:00 01/10/25 21:59 Cancel Sodium Chloride 100 meq/Potassium Chloride 50 meq/ Calcium Gluconate 4.65 meq/ Magnesium Sulfate 34 meq/ Multivitamins 10 ml/Chromium/ Copper/Manganese/ Zinc 1 ml/Sodium Phosphate 20 meq/ Potassium Acetate 50 meq/Amino Acids/Dextrose/ Purified Water 1,659.5 ml @ 68.537 mls/hr [id number] IV 01/09/25 09:30 01/09/25 21:59 Cancel Sodium Chloride 90 meq/Potassium Chloride 90 meq/ Calcium Gluconate 4.65 meq/ Magnesium Sulfate 32 meq/ Multivitamins 10 ml/Chromium/ Copper/Manganese/ Zinc 1 ml/Amino Acids/Dextrose/ Purified Water 1,646.5 ml @ 68 mls/hr [id number] IV 01/08/25 22:00 01/09/25 21:59 Sodium Chloride 100 meq/Potassium Chloride 50 meq/ Potassium Acetate 50 meq/Calcium Gluconate 4.65 meq/Magnesium Sulfate 32 meq/ Multivitamins 10 ml/Chromium/ Copper/Manganese/ Zinc 1 ml/Amino Acids/Dextrose/ Purified Water 1,654 ml @ 68 mls/hr [id number] IV 01/09/25 22:00 01/10/25 21:59 laboratory and microbiology Laboratory Tests 01/09/25 02:30 Test 01/09/25 02:30 Range/Units Serum Glucose 105 74-106 mg/dL Problem List/Assessment/Plan Problem List/Assessment/Plan 12/26/24 PATIENT EXAMINED WITH HIS MOTHER IN ATTENDANCE. ABDOMEN IS TENSELY DISTENDED AND FIRM, CT NOW INDICATES ASCITES. i HAVE DISCUSSED WITH Dr.N COLEMAN AND SHE WILL PROCEED WITH SIGMOIDOSCOPY/COLONOSCOPY . HAVE EXPLAINED TO HIS MOTHER HE MAY NEED AN OPERATION TO RESECT ISCHEMIC COLON AND GIVE HIM A COLOSTOMY. WILL PROCEED DEPENDING OF RESULTS OF Dr. Teo COLEMAN'S FINDINGS 12/27/24 DR.N COLEMAN CALLED ME AFTER SHE PERFORMED A SIGMOIDOSCOPY ON THIS PATIENT DURING WHICH SHE EVACUATED 6 LITERS OF MURKY FLUID FROM THE PATIENT'S COLON AND SHE SUSPECTS THAT THERE MAY BE A PERFORATION , ON HER EXAMINATION SHE DID SEE EVIDENCE OF ISCHEMIA. AFTER A THOROUGH DISCUSSION WITH PATIENT'S MOTHER WE WILL PROCEED WITH EXPLORATORY LAPAROTOMY AND PROBABLE COLECTOMY WITH COLOSTOMY. EXPLAINED RISKS AND COMPLICATIONS TO PATIENT'S MOTHER. 12/28/24 abdomen soft, non distended, all 4 drains with serous drainage, clinically unchanged. WBC improved. 12/30/24 ADEQUATE URINE OUTPUT, ABDOMEN NON DISTENDED, SOFT, ALL 4 DRAINS WITH SERO SANGUINEOUS DRAINAGE. 01/01/25 left pleural fluid aspirated by radiologist somewhat cloudy appearing, cultures sent. abdominal fluid aspirated is clear (probably irrigation) fluid, continues with leukocytosis 01/02/25 wbc lower, slight improvement, Gastrografin enema shows no evidence of extravasation. 01/02/25 I was asked by patient's nurse to come and talk the the family: mother,sister,sister in law and younger brother were present .Family told me patient history which was previously not known to me; PATIENT HAS BEEN ILL WITH HIS ABDOMINAL PAIN AND NAUSEA AND INABILITY TO EMPTY HIS BOWELS FOR OVER A YEAR AND AT ONE POINT SPENT TWO MONTHS IN THE HOSPITAL WITHOUT IMPROVEMENT. BROTHER TOLD ME THAT WE "HAVE DONE MORE TO HELP HIS BROTHER THAN ANYONE ELSE HAS". i EXPLAINED THAT THE PATIENT HAD TO BE INTUBATED IN THE ER AFTER BECOMING VERY UNSTABLE COMPLAINING OF ABDOMINAL PIN, OBVIOUSLY HE HAS SOME SERIOUS PROBLEMS. EXPLAINED THAT AT THE OPERATION ON HIS ABDOMEN THERE WAS EVIDENCE OF OVERWHELMING ABDOMINAL INFECTION,ADHESIONS,AND MULTIPLE ABSCESSES. THE GASTROGRAFIN ENEMA TODAY SHOWS NO EVIDENCE OF LEAK FROM THE COLON BUT HIS BOWEL IS STILL NOT FUNCTIONING AND WE MAY HAVE TO DO A DIVERTING COLOSTOMY IF HIS BOWEL DOES NOT RESUME NORMAL FUNCTION SOON. ALSO THE PATIENT MAY NEED A TRACHEOSTOMY IF HE DOES NOT SHOW ABILITY TO BE EXTUBATED SOON. FAMILY ASKED MANY QUESTIONS ,ALL OF WHICH I ANSWERED SEEMINGLY TO THEIR SATISFACTION. THE FAMILY WISHES TO DO EVERYTHING POSSIBLE TO MAKE THE PATIENT WELL.I ASSURED THEM THAT I WILL TREAT THE PATIENT I WOULD WANT MY FAMILY TO BE TREATED AND OFFERED THEM TO TASADI TO THEM ANYTIME THEY HAVE QUESTIONS. 01/03/25 mother and sister at bedside, abdomen soft and nondistended, drainage serous but with slight sediment, will ask nurses to irrigate , WBC little higher. will try to stimulate bowel activity with neostigmine and Reglan. will await request from primary team for tracheostomy ( have explained procedure to family members). 01/04/25 patient is febrile, abdomen is not distended and soft but the irrigation of drain number 4 produces fouls smelling murky fluid, the remaining three drains do not produce the same cat of fluid. due to persistent leukocytosis and fever, combined with the purulent quality of fluid we will proceed witth ex- loratory laparotomy tomorrow, Most likely will do a transverse colostomy as well as there is no movement of contrast in the colon. planned tracheostomy will be done at the same time. Patient's mother and brother present and fully informed. 01/06/25 sedated, urine output adequate, LEUKOCYTOSIS, WOUND OK, STOMAS VIABLE WITHOUT FUNCTION , URINE OUTPUT ADEQUATE. FAMILY NOT PRESENT 01/06 25 I WAS CALLED EMERGENTLY BECAUSE THE RESPIRATORY THERAPIST"ACCIDENTALLY TRANSECTED THE TRACHEOSTOMY CUFF PO0RT AND THE CUFF BECAME DEFLATED, i EXPLAINED THAT ON A TRACHEOSTOMY THAT WAS JUST DONE YESTERDAY A TUBE EXCHANGE NEEDS TO BE DONE IN THE OPERATING ROOM I CAME IN TO DO THE TRACHEOSTOMY EXCHANGE. 01/09/25 sedated, ventilated, tracheostomy in good position, site clean and dry, abdominal wound with good granulation no purulence. abdomen non distended, stomas viable with no function, drains with sediment, need irrigation. wbc worsening again Plan discussed with: Other Dietary Evaluation Review Comments: 1. TF: Vital AF@50ml/hr (90g protein, 1440kcal 973 free water) meeting Protein needs 83%, energy needs 80%. 2. TPN per pharmacy meeting 75% of his needs if TF not feasible or NPO>7 days. 3. Diet as tolerated per REPAIR ORDER CLERK eval when off Vent Expected Outcomes/Goals: Preventing catabolism HUMPHREY RUBIO MD Jan 09, 2025 10:19
[2025-01-09] MEDS: FUROSEMIDE 40 MG/4 ML VIAL IV ONE (12:32)
[2025-01-09] MEDS: KETAMINE 50mg/ML 10ml Vial 500 MG in SODIUM CHL 0.9% 490 ML IV SCH (12:45)
--- NOTE | 2025-01-09 13:20 | DVHPN2 ---
Progress Note - Dictate Date Seen: Jan 09, 2025 Has the PT tested + for MRSA If YES, has PT been informed?: No Medical Necessity Reason Pt with a Central, PICC or Fol: Yes The following are medically ne: Navarrete Catheter Reason for navarrete catheter: Strict I&O Subjective Patient had some colostomy output today; this morning Post op Day # 4 s/p Exploratory laparotomy, extensive lysis of adhesions, transverse colostomy and mucus fistula, abdominal lavage, evacuation of abdominal abscesses, repair of sigmoid defect. Postop day 3. S/P tracheostomy Hemoglobin stable at 9.6 after 2 units PRBC No active GI bleeding reported Leukocytosis improving; thrombocytosis Patient is on multiple antibiotics Patient is off pressors vital signs Vital Sign Date Time Temp Pulse Resp B/P (MAP) Pulse Ox O2 Delivery O2 Flow Rate FiO2 01/09/25 12:32 147/100 01/09/25 12:00 35 94 Mechanical Ventilator+ 70 70 01/09/25 11:28 128 01/09/25 07:00 98.6 98.6 Total Intake and Output 01/08/25 01/08/25 01/09/25 15:00 23:00 07:00 Intake Total 2123.1 ml 1472.1 ml 1293.63 ml Output Total 3300 ml 3500 ml Balance 2123.1 ml -1827.9 ml -2206.37 ml medications Current Medications Medications Dose Ordered Sig/Sherron Route Start Time Stop Time Status Last Admin Dose Admin Pantoprazole Sodium 40 mg DAILY IV 12/18/24 10:00 01/09/25 09:28 40 MG Midazolam HCl 50 ml @ 1 mls/hr Q24H IV 12/17/24 17:00 01/09/25 11:44 15 MLS/HR Valproate Sodium 250 mg/Sodium Chloride 52.5 ml @ 52.5 mls/hr BID IV 12/17/24 22:00 01/09/25 09:29 52.5 MLS/HR Propofol 100 ml @ 2.37 mls/hr Q24H IV 12/17/24 18:15 01/09/25 10:47 23.7 MLS/HR Fentanyl Citrate 250 ml @ 2.5 mls/hr Q24H IV 12/17/24 21:15 01/09/25 08:35 35 MLS/HR Norepinephrine Bitartrate 250 ml @ 3.75 mls/hr Q24H IV 12/18/24 01:45 01/07/25 00:59 3.75 MLS/HR Diagnostic Test (Pha) 1 strip Q6HR 12/20/24 18:00 01/09/25 11:58 1 STRIP Insulin Human Regular FOLLOW SLIDING SCALE Q6HR SC 12/20/24 18:00 01/06/25 05:34 2 UNITS Dextrose 50 ml UD IV 12/20/24 14:15 12/20/24 17:47 50 ML Sodium Chloride 40 meq/Potassium Chloride 40 meq/ Potassium Phosphate 11 meq/ Calcium Gluconate 2.3 meq/Magnesium Sulfate 8 meq/ Multivitamins 10 ml/Chromium/ Copper/Manganese/ Zinc 1 ml/Amino Acids/Dextrose/ Purified Water 1,450.4462 ml @ 60 mls/hr [id number] IV 12/26/24 22:00 12/27/24 21:59 Cancel Ipratropium [place] 0.5 mg Q6HR NEB 12/27/24 18:00 01/09/25 11:28 0.5 MG Levalbuterol HCl 1.25 mg Q6HR NEB 12/27/24 18:00 01/09/25 11:28 1.25 MG Amino Acids 0 ml @ 0 mls/hr PER PHARMACY IV 12/27/24 12:30 Sodium Chloride 10 ml QSHIFT@10,22 IV 12/27/24 22:00 01/09/25 09:29 10 ML Artificial Tears 1 drop Q6HP PRN EACHEYE 12/29/24 23:45 01/06/25 09:00 1 DROP Micafungin Sodium 100 mg/Sodium Chloride 100 ml @ 100 mls/hr Q24H IV 12/30/24 09:45 01/09/25 09:19 100 MLS/HR Linezolid 300 ml @ 150 mls/hr Q12HR IV 12/30/24 22:00 01/09/25 09:29 150 MLS/HR Meropenem 50 ml @ 17 mls/hr Q8HR IV 12/31/24 14:00 01/09/25 05:51 17 MLS/HR Ketamine HCl 50 mg [id number] PRN IV 01/04/25 15:00 01/05/25 07:00 Cancel Acetaminophen 1,000 mg [id number] PRN IV 01/05/25 04:00 01/08/25 21:45 1,000 MG Sodium Chloride 120 meq/Potassium Chloride 50 meq/ Potassium Acetate 50 meq/Calcium Gluconate 4.65 meq/Magnesium Sulfate 34 meq/ Multivitamins 10 ml/Chromium/ Copper/Manganese/ Zinc 1 ml/Amino Acids/Dextrose/ Purified Water 1,659.5 ml @ 68.108 mls/hr [id number] IV 01/09/25 22:00 01/10/25 21:59 Cancel Sodium Chloride 100 meq/Potassium Chloride 50 meq/ Calcium Gluconate 4.65 meq/ Magnesium Sulfate 34 meq/ Multivitamins 10 ml/Chromium/ Copper/Manganese/ Zinc 1 ml/Sodium Phosphate 20 meq/ Potassium Acetate 50 meq/Amino Acids/Dextrose/ Purified Water 1,659.5 ml @ 68.537 mls/hr [id number] IV 01/09/25 09:30 01/09/25 21:59 Cancel Sodium Chloride 90 meq/Potassium Chloride 90 meq/ Calcium Gluconate 4.65 meq/ Magnesium Sulfate 32 meq/ Multivitamins 10 ml/Chromium/ Copper/Manganese/ Zinc 1 ml/Amino Acids/Dextrose/ Purified Water 1,646.5 ml @ 68 mls/hr [id number] IV 01/08/25 22:00 01/09/25 21:59 Sodium Chloride 100 meq/Potassium Chloride 50 meq/ Potassium Acetate 50 meq/Calcium Gluconate 4.65 meq/Magnesium Sulfate 32 meq/ Multivitamins 10 ml/Chromium/ Copper/Manganese/ Zinc 1 ml/Amino Acids/Dextrose/ Purified Water 1,654 ml @ 68 mls/hr [id number] IV 01/09/25 22:00 01/10/25 21:59 Furosemide 40 mg DAILY IV 01/10/25 10:00 Ketamine HCl 500 mg/Sodium Chloride 500 ml @ 5.82 mls/hr Q24H IV 01/09/25 11:45 01/09/25 12:45 5.82 MLS/HR objective General Appearance: On ventilator, FiO2 30% HEENT: Atraumatic, PERRLA, EOMI, Mucous membr. moist/pink Respiratory: Normal air movement, Other (On ventilator) Cardiovascular: Regular rate, Normal S1, Normal S2, No murmurs Abdominal: Binder in place, soft, distended, no bowel sounds; minimal colostomy liquid output Extremities: No clubbing, No cyanosis, No edema, Normal pulses, No tenderness/swelling Skin: No rashes, No breakdown, No significant lesion Neuro: Normal speech, Normal tone, Sensation intact, Cranial nerves 3-12 NL, Reflexes 2+, Other (Generalized weakness) Psych/Mental Status: Mood NL, Other (Altered mental status) Rectal exam, normal tone no obstipation rectal mass or obstruction noted and no stool in the rectum laboratory and microbiology Laboratory Tests 01/09/25 02:30 Test 01/09/25 02:30 Range/Units Serum Glucose 105 74-106 mg/dL Problems(with codes): (1) Sigmoid colon injury (2) Septicemia due to vancomycin resistant Enterococcus (VRE) species (3) Peritonitis (4) Neuropathy involving both lower extremities (5) Constipation (6) Acute respiratory failure (7) Sepsis, unspecified organism (8) Generalized weakness (9) Acute abdominal pain (10) Leukocytosis Prognosis Plan Continue supportive care IV antibiotics IV TPN In the colostomy continues to function then we can consider starting enteral tube feedings They are considering putting this patient on a ketamine drip because he is maxed out on sedation Dietary Evaluation Review Comments: 1. TF: Vital AF@50ml/hr (90g protein, 1440kcal 973 free water) meeting Protein needs 83%, energy needs 80%. 2. TPN per pharmacy meeting 75% of his needs if TF not feasible or NPO>7 days. 3. Diet as tolerated per BILINGUAL PATIENT SUPPORT CASEWORKER eval when off Vent Expected Outcomes/Goals: Preventing catabolism Plan discussed with: Other (ICU nurse) MAO COLEMAN MD Jan 09, 2025 13:20
--- NOTE | 2025-01-09 13:20 | DVH ---
RIGHT Upper Extremity Venous Duplex Clinical History: rule out dvt Comparison: US LT UPPER DVT on DOS: 01/01/25 Findings: Duplex Doppler evaluation of the venous system of the RIGHT lower neck and upper extremity including color Doppler and spectral/pulsed waveform analysis was performed. Partial thrombus in the right internal jugular vein and subclavian vein. Thrombus in the axillary ve in and brachial vein. The visualized portion of the brachiocephalic vein is patent on color Doppler evaluation without intr aluminal thrombus and demonstrates waveform variability. The axillary vein demonstrates appropriate compressibility and waveform variability. The cephalic vein demonstrates appropriate compressibility and patency on Doppler evaluation. Impression: Right upper extremity DVT. Critical Result: DVT Findings discussed with KELSEY BRIGGS at 01/09/2025 01:17 PM, and acknowledged receipt and understanding of the findings. .. If clinical concern/symptoms persist or worsen, short-interval follow-up study is suggested.
[2025-01-09 15:05] LABS: Mean Corpuscular Volume 85.5 fL (80.0-100.0); Nucleated Red Blood Cells % 0.0 %
[2025-01-09 15:07] LABS: Hematocrit 30.1 % (41.0-53.0); Hemoglobin 10.7 g/dL (13.5-17.5); Mean Corpuscular Hemoglobin 30.6 pg (28.0-32.0)
--- NOTE | 2025-01-09 15:17 | DVHPNRES ---
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 01/09/25 Resulted 11:53 Platelet Monitoring [facility] 01/09/25 In Process 14:19 Vte Protocol Initiated [facility] 01/09/25 In Process 14:19 Heparin Per [facility] 01/09/25 In Process Standardized Proce 14:19 Discontinue All Im [facility] 01/09/25 In Process Injections 14:19 PTPTT LAB 01/09/25 In Process 14:19 Complete Blood Count LAB 01/09/25 In Process 14:19 Heparin Drip/D5w [facility] 01/09/25 Logged 100units/Ml 14:30 Dietary Evaluation Review Comments: 1. TF: Vital AF@50ml/hr (90g protein, 1440kcal 973 free water) meeting Protein needs 83%, energy needs 80%. 2. TPN per pharmacy meeting 75% of his needs if TF not feasible or NPO>7 days. 3. Diet as tolerated per [employer] eval when off Vent Expected Outcomes/Goals: Preventing catabolism Date of Service: Jan 09, 2025 Billing Provider: MARIELA PÉREZ MD Common Visit Codes: 75627-[id number] CARE 30-74 MIN, [id number] CARE-EACH +30MIN KELSEY LINDER Jan 09, 2025 15:17 MARIELA PÉREZ MD Jan 10, 2025 12:25
[2025-01-09 15:20] LABS: INR 1.08 (0.9-1.15); Partial Thromboplastin Time 29.4 SEC (24.5-34.5); Prothrombin Time 11.4 sec (9.3-11.8)
[2025-01-09] MEDS: HEPARIN DRIP/D5W 100UNITS/ML 250 ML IV SCH ×2 (16:03→23:30)
--- NOTE | 2025-01-09 16:37 | CONS ---
Pharmacy Clinical Information: HEPARIN DRIP PER PHARMACY SPOKE TO AISHA JOE REGARDING NEW HEPARIN DRIP ORDER CURRENT aPTT: 29.4 ON 01/09/2025 AT 1440 BOLUS: NO PER INITIAL HEPARIN DRIP RATE 1700 UNITS/HR ADMINISTERED AT 1603 NEXT aPTT: 01/09/2025 AT 2200 AISHA JOE READ BACK HEPARIN DRIP RATE 1700 UNITS/HR LUPILLO Clemens Jan 09, 2025 16:37
[2025-01-09] MEDS: TPN PER PHARMACY IV NR (22:00)
[2025-01-09 22:45] LABS: INR 1.08 (0.9-1.15); Partial Thromboplastin Time 37.1 SEC (24.5-34.5); Prothrombin Time 11.4 sec (9.3-11.8)
[2025-01-10] VITALS (109 sets, daily range): BP systolic 100–156; BP diastolic 17–101; PULSE 82–126; RESP 21–43; TEMP 97.5–100.2; O2SAT 86–100
[2025-01-10 03:10] LABS: Nucleated Red Blood Cells % 0.1 %
[2025-01-10 03:13] LABS: Hematocrit 28.0 % (41.0-53.0); Hemoglobin 9.9 g/dL (13.5-17.5); Mean Corpuscular Hemoglobin 30.4 pg (28.0-32.0); Mean Corpuscular Volume 86.2 fL (80.0-100.0)
[2025-01-10 03:29] LABS: Alanine Aminotransferase 16 U/L (7-40); Anion Gap 9 (5-15); Carbon Dioxide 27 mmol/L (20-31)
[2025-01-10 03:30] LABS: BUN/Creatinine Ratio 54.2 (10.0-20.0); Blood Urea Nitrogen 13 mg/dL (9-23); Magnesium 1.9 mg/dL (1.6-2.6); Total Protein 6.0 g/dL (5.7-8.2)
[2025-01-10 03:32] LABS: Albumin 3.0 g/dL (3.2-4.8); Alkaline Phosphatase 157 U/L (46-116); Bilirubin, Total 0.7 mg/dL (0.2-1.0); Calcium 7.9 mg/dL (8.7-10.4); Chloride 97 mmol/L (98-107); Glucose 116 mg/dL (74-106); Potassium 3.5 mmol/L (3.5-5.1); Sodium 133 mmol/L (136-145)
[2025-01-10] MEDS: KETAMINE 50mg/ML 10ml Vial 10 ML ONE (04:30)
[2025-01-10 05:57] LABS: INR 1.07 (0.9-1.15); Partial Thromboplastin Time 40.7 SEC (24.5-34.5); Prothrombin Time 11.3 sec (9.3-11.8)
--- NOTE | 2025-01-10 06:20 | DVH ---
CHEST RADIOGRAPH Indication: itnubated Technique: Single frontal view of the chest was obtained COMPARISON: XY CHEST XRAY 1 VIEW on DOS: 01/09/25, XY CHEST XRAY 1 VIEW on DOS: 01/08/25, XY CHEST XRAY 1 VIEW on DOS: 01/07/25, XY CHEST PORTABLE on DOS: 01/06/25, XY CHEST PORTABLE on DOS: 01/06/25 FINDINGS: Lines and Tubes: Unchanged. Lungs: Progressively worsening multifocal bilateral consolidative infiltrate within all lung zones. S mall bilateral pleural effusions. No pneumothorax. Cardiomediastinal contours: Unremarkable Bones: Unremarkable IMPRESSION: 1. Progressively worsening multifocal bilateral consolidative infiltrate within all lung zones. 2. Small bilateral pleural effusions. 3. Lines and tubes unchanged.
[2025-01-10] MEDS: HEPARIN DRIP/D5W 100UNITS/ML 250 ML IV SCH ×2 (06:30→19:54)
[2025-01-10 08:54] LABS: Base Excess 2.9 mmol/L (-2.0-3.0)
[2025-01-10] MEDS: FUROSEMIDE 40 MG/4 ML VIAL IV SCH (09:14)
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
[2025-01-10 12:21] LABS: Potassium 3.9 mmol/L (3.5-5.1)
[2025-01-10 12:22] LABS: Anion Gap 8 (5-15); Carbon Dioxide 29 mmol/L (20-31); INR 1.13 (0.9-1.15); Partial Thromboplastin Time 44.7 SEC (24.5-34.5); Prothrombin Time 11.8 sec (9.3-11.8)
[2025-01-10 12:23] LABS: Calcium 8.4 mg/dL (8.7-10.4); Chloride 97 mmol/L (98-107); Sodium 134 mmol/L (136-145)
[2025-01-10 12:27] LABS: BUN/Creatinine Ratio 45.7 (10.0-20.0); Blood Urea Nitrogen 16 mg/dL (9-23)
[2025-01-10 12:35] LABS: Glucose 112 mg/dL (74-106)
--- NOTE | 2025-01-10 13:55 | CONS ---
Pharmacy Clinical Information: HEPARIN DRIP, DVT PROTOCOL @1154 APTT 44.7 - NO BOLUS, INCREASE HEPARIN DRIP RATE TO 2300 UNITS/HR NEXT APTT DRAW SCHEDULED @1830 PER RX PROTOCOL CONFIRMED AND READ BACK WITH DAVID TORRES PHARMACIST Jan 10, 2025 13:55
[2025-01-10 14:30] LABS: Base Excess 2.9 mmol/L (-2.0-3.0)
--- NOTE | 2025-01-10 18:08 | DVHPNRES ---
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 Thrombus in the axillary vein and brachial vein. Heparin drip #Leukocytosis, bands severe inflammatory response continue meropenem + vancomycin+ micafungin #Leukopenia resolved hb stable #Severe anemia, normochromic normocytic hb 9 3 urbc given ID #Septic shock due intraabdominal infection Meropenem + linezolid+ micafungin sp surgery : abdominal culture showed enterococcus faecium VRE blood culture positive for staphylococcus epidermidis and micrococcus 01/05/25: vre and citrobacter freundii in peritoneal fluid superficial thrombosis on left arm, midline removed Lines: PICC line, midline removed Intubation 12/17/24 Navarrete 12/17/[address] Pérez Full code Time spent on critical care 92 min excluding procedures and including discussion with family- mother: Citlaly DVT prophylaxis: Enoxaparin PUD prophylaxis: protonix IV Plan discussed with: Other (mother ) My Orders My Orders Orders - KELSEY LINDER RESIDENT Procedure Category Date Status Time Heparin Per Pharmacy [facility] 01/09/25 In Process Protocol 23:54 Heparin Drip/D5w PHA 01/10/25 In Process 100units/Ml 06:30 Heparin Per Pharmacy [facility] 01/10/25 In Process Protocol 06:26 Heparin Per Pharmacy [facility] 01/10/25 In Process Protocol 13:55 PTPTT LAB 01/10/25 Logged 18:30 Complete Blood Count LAB 01/11/25 Verified 04:00 Chest Portable XY 01/11/25 Logged 04:00 Abg W/ Co-Ox RT 01/11/25 Logged 04:00 Dietary Evaluation Review Comments: 1. TF: Vital AF@50ml/hr (90g protein, 1440kcal 973 free water) meeting Protein needs 83%, energy needs 80%. 2. TPN per pharmacy meeting 75% of his needs if TF not feasible or NPO>7 days. 3. Diet as tolerated per ACQUISITIONS EDITOR eval when off Vent Expected Outcomes/Goals: Preventing catabolism Date of Service: Jan 10, 2025 Billing Provider: MARIELA PÉREZ MD Common Visit Codes: 57652-[id number] CARE 30-74 MIN, [id number] CARE-EACH +30MIN KELSEY LINDER RESIDENT Jan 10, 2025 18:07 MARIELA PÉREZ MD Jan 12, 2025 12:57
[2025-01-10 18:56] LABS: INR 1.13 (0.9-1.15); Partial Thromboplastin Time 53.7 SEC (24.5-34.5); Prothrombin Time 11.8 sec (9.3-11.8)
--- NOTE | 2025-01-10 21:56 | DVHPN2 ---
Progress Note - Dictate Date Seen: Jan 10, 2025 Has the PT tested + for MRSA If YES, has PT been informed?: No Medical Necessity Reason Pt with a Central, PICC or Fol: Yes The following are medically ne: Navarrete Catheter Reason for navarrete catheter: Strict I&O Subjective Post op Day # 5 s/p Exploratory laparotomy, extensive lysis of adhesions, transverse colostomy and mucus fistula, abdominal lavage, evacuation of abdominal abscesses, repair of sigmoid defect. Postop day 5. S/P tracheostomy Hemoglobin stable at 9.9 after 2 units PRBC No active GI bleeding reported Leukocytosis improving; thrombocytosis improving Patient is on multiple antibiotics Patient is off pressors Patient is on max sedation, still awake, ketamine drip started, patient had stool in the colostomy, has wound vac, his right arm was more swollen and red, arm US showed extensive DVT, heparin started, vital signs Vital Sign Date Time Temp Pulse Resp B/P (MAP) Pulse Ox O2 Delivery O2 Flow Rate FiO2 01/10/25 20:09 119 31 150/93 (112) 93 70 01/10/25 19:00 99.9 211.8 01/10/25 18:00 Mechanical Ventilator+ Total Intake and Output 01/09/25 01/09/25 01/10/25 15:00 23:00 07:00 Intake Total 1642.11 ml 1677.46 ml 2015.85 ml Output Total 5545 ml 1780 ml Balance 1642.11 ml -3867.54 ml 235.85 ml medications Current Medications Medications Dose Ordered Sig/Sherron Route Start Time Stop Time Status Last Admin Dose Admin Pantoprazole Sodium 40 mg DAILY IV 12/18/24 10:00 01/10/25 09:14 40 MG Midazolam HCl 50 ml @ 1 mls/hr Q24H IV 12/17/24 17:00 01/10/25 18:30 15 MLS/HR Valproate Sodium 250 mg/Sodium Chloride 52.5 ml @ 52.5 mls/hr BID IV 12/17/24 22:00 01/10/25 10:27 52.5 MLS/HR Propofol 100 ml @ 2.37 mls/hr Q24H IV 12/17/24 18:15 01/10/25 20:49 23.7 MLS/HR Fentanyl Citrate 250 ml @ 2.5 mls/hr Q24H IV 12/17/24 21:15 01/10/25 15:02 35 MLS/HR Norepinephrine Bitartrate 250 ml @ 3.75 mls/hr Q24H IV 12/18/24 01:45 01/07/25 00:59 3.75 MLS/HR Diagnostic Test (Pha) 1 strip Q6HR 12/20/24 18:00 01/10/25 18:28 1 STRIP Insulin Human Regular FOLLOW SLIDING SCALE Q6HR SC 12/20/24 18:00 01/06/25 05:34 2 UNITS Dextrose 50 ml UD IV 12/20/24 14:15 12/20/24 17:47 50 ML Sodium Chloride 40 meq/Potassium Chloride 40 meq/ Potassium Phosphate 11 meq/ Calcium Gluconate 2.3 meq/Magnesium Sulfate 8 meq/ Multivitamins 10 ml/Chromium/ Copper/Manganese/ Zinc 1 ml/Amino Acids/Dextrose/ Purified Water 1,450.4462 ml @ 60 mls/hr [id number] IV 12/26/24 22:00 12/27/24 21:59 Cancel Ipratropium [place] 0.5 mg Q6HR NEB 12/27/24 18:00 01/10/25 18:37 0.5 MG Levalbuterol HCl 1.25 mg Q6HR NEB 12/27/24 18:00 01/10/25 18:37 1.25 MG Amino Acids 0 ml @ 0 mls/hr PER PHARMACY IV 12/27/24 12:30 Sodium Chloride 10 ml QSHIFT@10,22 IV 12/27/24 22:00 01/10/25 09:14 10 ML Artificial Tears 1 drop Q6HP PRN EACHEYE 12/29/24 23:45 01/06/25 09:00 1 DROP Micafungin Sodium 100 mg/Sodium Chloride 100 ml @ 100 mls/hr Q24H IV 12/30/24 09:45 01/10/25 09:14 100 MLS/HR Linezolid 300 ml @ 150 mls/hr Q12HR IV 12/30/24 22:00 01/10/25 12:25 150 MLS/HR Meropenem 50 ml @ 17 mls/hr Q8HR IV 12/31/24 14:00 01/10/25 14:36 17 MLS/HR Ketamine HCl 50 mg [id number] PRN IV 01/04/25 15:00 01/05/25 07:00 Cancel Acetaminophen 1,000 mg [id number] PRN IV 01/05/25 04:00 01/08/25 21:45 1,000 MG Sodium Chloride 120 meq/Potassium Chloride 50 meq/ Potassium Acetate 50 meq/Calcium Gluconate 4.65 meq/Magnesium Sulfate 34 meq/ Multivitamins 10 ml/Chromium/ Copper/Manganese/ Zinc 1 ml/Amino Acids/Dextrose/ Purified Water 1,659.5 ml @ 68.108 mls/hr [id number] IV 01/09/25 22:00 01/10/25 21:59 Cancel Sodium Chloride 100 meq/Potassium Chloride 50 meq/ Calcium Gluconate 4.65 meq/ Magnesium Sulfate 34 meq/ Multivitamins 10 ml/Chromium/ Copper/Manganese/ Zinc 1 ml/Sodium Phosphate 20 meq/ Potassium Acetate 50 meq/Amino Acids/Dextrose/ Purified Water 1,659.5 ml @ 68.537 mls/hr [id number] IV 01/09/25 09:30 01/09/25 21:59 Cancel Sodium Chloride 100 meq/Potassium Chloride 50 meq/ Potassium Acetate 50 meq/Calcium Gluconate 4.65 meq/Magnesium Sulfate 32 meq/ Multivitamins 10 ml/Chromium/ Copper/Manganese/ Zinc 1 ml/Amino Acids/Dextrose/ Purified Water 1,654 ml @ 68 mls/hr [id number] IV 01/09/25 22:00 01/10/25 21:59 01/09/25 22:00 68 MLS/HR Furosemide 40 mg DAILY IV 01/10/25 10:00 01/10/25 09:14 40 MG Ketamine HCl 500 mg/Sodium Chloride 500 ml @ 5.82 mls/hr Q24H IV 01/09/25 11:45 01/10/25 19:24 81.48 MLS/HR Sodium Chloride 150 meq/Potassium Chloride 70 meq/ Potassium Acetate 50 meq/Calcium Gluconate 4.65 meq/Magnesium Sulfate 32 meq/ Multivitamins 10 ml/Chromium/ Copper/Manganese/ Zinc 1 ml/Amino Acids/Dextrose/ Purified Water 1,676.5 ml @ 70 mls/hr [id number] IV 01/10/25 22:00 01/11/25 21:59 Heparin Sodium/ Dextrose 250 ml @ 23 mls/hr [id number] IV 01/10/25 19:30 01/10/25 19:54 23 MLS/HR objective General Appearance: On ventilator, FiO2 30% HEENT: Atraumatic, PERRLA, EOMI, Mucous membr. moist/pink Respiratory: Normal air movement, Other (On ventilator) Cardiovascular: Regular rate, Normal S1, Normal S2, No murmurs Abdominal: Binder in place, soft, distended, no bowel sounds; minimal colostomy liquid output Extremities: No clubbing, No cyanosis, No edema, Normal pulses, No tenderness/swelling Skin: No rashes, No breakdown, No significant lesion Neuro: Normal speech, Normal tone, Sensation intact, Cranial nerves 3-12 NL, Reflexes 2+, Other (Generalized weakness) Psych/Mental Status: Mood NL, Other (Altered mental status) Rectal exam, normal tone no obstipation rectal mass or obstruction noted and no stool in the rectum laboratory and microbiology Laboratory Tests 01/10/25 11:55 01/10/25 02:30 Test 01/10/25 11:55 Range/Units Serum Glucose 112 H 74-106 mg/dL Problems(with codes): (1) Sigmoid colon injury (2) Septicemia due to vancomycin resistant Enterococcus (VRE) species (3) Peritonitis (4) Constipation (5) Generalized weakness (6) Acute abdominal pain (7) Leukocytosis (8) Abnormal finding on GI tract imaging Prognosis Plan Continue supportive care IV antibiotics IV TPN In the colostomy continues to function then we can consider starting enteral tube feedings Dietary Evaluation Review Comments: 1. TF: Vital AF@50ml/hr (90g protein, 1440kcal 973 free water) meeting Protein needs 83%, energy needs 80%. 2. TPN per pharmacy meeting 75% of his needs if TF not feasible or NPO>7 days. 3. Diet as tolerated per FINANCIAL DATA ANALYST eval when off Vent Expected Outcomes/Goals: Preventing catabolism Plan discussed with: Other (Dr Jameson) MAO COLEMAN MD Jan 10, 2025 21:56
[2025-01-11] VITALS (109 sets, daily range): BP systolic 97–150; BP diastolic 53–93; PULSE 89–131; RESP 13–45; TEMP 61.2–102; O2SAT 89–100
[2025-01-11] MEDS: TPN PER PHARMACY IV NR ×2 (00:51→21:45)
[2025-01-11 01:07] LABS: INR 1.11 (0.9-1.15); Partial Thromboplastin Time 54.1 SEC (24.5-34.5); Prothrombin Time 11.6 sec (9.3-11.8)
[2025-01-11 03:53] LABS: Hematocrit 26.7 % (41.0-53.0); Hemoglobin 9.0 g/dL (13.5-17.5); Mean Corpuscular Hemoglobin 29.5 pg (28.0-32.0); Mean Corpuscular Volume 87.7 fL (80.0-100.0); Nucleated Red Blood Cells % 0.0 %
[2025-01-11 04:11] LABS: Alanine Aminotransferase 11 U/L (7-40); Anion Gap 8 (5-15); BUN/Creatinine Ratio 38.7 (10.0-20.0); Blood Urea Nitrogen 12 mg/dL (9-23); Carbon Dioxide 27 mmol/L (20-31); Chloride 102 mmol/L (98-107); Magnesium 1.9 mg/dL (1.6-2.6); Potassium 3.9 mmol/L (3.5-5.1); Sodium 137 mmol/L (136-145); Total Protein 5.8 g/dL (5.7-8.2)
[2025-01-11 04:12] LABS: Bilirubin, Total 0.4 mg/dL (0.2-1.0)
[2025-01-11 04:24] LABS: Albumin 2.9 g/dL (3.2-4.8); Alkaline Phosphatase 138 U/L (46-116); Calcium 8.1 mg/dL (8.7-10.4); Glucose 113 mg/dL (74-106)
--- NOTE | 2025-01-11 05:55 | DVH ---
CHEST RADIOGRAPH Indication: PATIENT INTUBATED Technique: Single frontal view of the chest was obtained COMPARISON: XY CHEST XRAY 1 VIEW on DOS: 01/10/25, XY CHEST XRAY 1 VIEW on DOS: 01/09/25, XY CHEST XRAY 1 VIEW on DOS: 01/08/25, XY CHEST XRAY 1 VIEW on DOS: 01/07/25, XY CHEST PORTABLE on DOS: 01/06/25 FINDINGS: Lines and Tubes: Tracheostomy and enteric catheter in satisfactory position. Right PICC in satisfact ory position. Lungs: Multifocal airspace disease. Pleura: No effusion. No pneumothorax. Cardiomediastinal contours: Cardiomegaly Bones: Unremarkable IMPRESSION: Lines and tubes in satisfactory position. No significant interval change.
[2025-01-11 06:41] LABS: Base Excess 2.2 mmol/L (-2.0-3.0)
[2025-01-11 07:31] LABS: INR 1.16 (0.9-1.15); Partial Thromboplastin Time 52.6 SEC (24.5-34.5); Prothrombin Time 12.1 sec (9.3-11.8)
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
--- NOTE | 2025-01-11 12:56 | DVHPNRES ---
Progress Note Date Seen: Jan 11, 2025 Resident Creating Document: KELSEY LINDER RESIDENT Has the PT tested + for MRSA If YES, has PT been informed?: No Medical Necessity Reason Pt with a Central, PICC or Fol: Yes The following are medically ne: Navarrete Catheter Reason for navarrete catheter: Strict I&O Subjective Review of Systems 44-year-old male with PMHx of epilepsy, gout, and chronic pain, presenting with 1-hour history of excruciating RLQ abdominal pain, per mother. She reports he has had chronic constipation for the past month, managed with stool softeners and coconut water. He also takes chronic opioids (oxycodone) and benzodiazepines (alprazolam), per medication reconciliation. On arrival to ED 12/17/24, the patient was in acute respiratory distress. CT abdomen showed diffuse colitis with small perihepatic ascites. Initial management included Zosyn and Flagyl. Despite analgesics (multiple doses of Dilaudid), he became progressively agitated and tachypneic. Ativan and haloperidol were administered, but by ~5 PM he was intubated due to worsening respiratory status and altered mentation. He required escalating vasopressor support overnight (levophed at 2 AM, then phenylephrine and vasopressin). Received 4L NS total during resuscitation. WBC trended from leukocytosis to leukopenia; lactic acidosis and primary metabolic acidosis were noted on ABG. 12/19/24: wean off phenylephrine, vasopressin and titrating down levophed, ABG showed metabolic acidosis with hyperchloremia in the metabolic panel, fluids changed to bicarb 150 meq and d5w, less drainage from the OG tube, we are going to start tube feedings 12/20/24: wean off levophed, ABG showed respiratory alkalosis, fluids changed to lactate ringer 75cc/h, hold on tube feedings, start clinimix, we are going to do ct scan with IV and PO contrast 12/21/24: CT scan showed Mild ileus pattern, Possible colitis at the hepatic flexure and within the distal and proximal sigmoid colon which may be infectious or inflammatory, Moderate volume of abdominal ascites, soap enema was done unsuccessfully, Dr Forbes at bedside indicates, miralax once, reglan sherron q8h, soap enemas BID, titrate fentanyl down, K+ and Mg2+ was replaced 12/22/24: dc fluids, no BM, start methylnaltrexone, severe hypokalemia 2.6 12/23/24: no BM, hypokalemia 2.9, RR set at 16 12/24/24: no BM, off pressors, midazolam 9, propofol 50 fentanyl 200 mcg, clinimix, hypokalemia 3.3, replaced with 4 bags of kcl rider 80meq, gastric output high 850cc, fevers yesterday, we are going to take new cultures today, GI ordered gastrografin bowel series, patient had oral dye and bowel series were taken during the day, x ray showed more congestion 1 dose of furosemide 12/25/24: small bowel movement today, per dr Bailey, start magnesium citrate, today postpyloric tube is placed, magnesium can be give it from there, clinimix is changed to TPN, high gastric residuals, this afternoon K 3,7, intrabdominal pressure 9-10 12/26/24: ultrasound showed multiloculated ascites, no paracentesis were performed, due to the possible upper fecal impaction, GI, Dr Bailey, was consulted to perform a colonoscopy which showed In the proximal sigmoid or at the junction of the sigmoid and descending colon there appeared to be an ischemic area and there was an area of a large fluid collection and 6 L of greenish brown liquid which was aspirated along with some stool. There is a possibility that the patient may have a previous area of spontaneous perforation and this fluid may have been aspirated possibly from the peritoneal cavity. The colonoscope was not advanced beyond this area. Surgery Dr Simpson, will perform exploratory laparotomy due to the possibility of bowel ischemia, risk and benefits were explained to the mother, the possibility of colostomy was also discussed, stop TPN, continue suction 12/27/24 The patient underwent exploratory laparotomy, during which approximately 2 liters of purulent fluid were drained. Extensive fibrinous adhesions were noted throughout the peritoneal cavity, necessitating adhesiolysis and removal of intraperitoneal fibrin. Due to significant inflammation and concern for bowel integrity, the surgical team avoided aggressive mobilization. No evidence of gastrointestinal perforation was identified. Four Jeanmarie-Dooley drains were placed, and the cavity was copiously irrigated with 10 liters of saline. Postoperatively, the patient exhibited elevated peak airway pressures and severe respiratory acidosis. Ventilator settings were transitioned to pressure control, and bronchodilator therapy was initiated for wheezing. A bicarbonate drip was started with subsequent improvement in acid-base status. The patient is on broad-spectrum antimicrobials including meropenem, vancomycin, and micafungin, along with antipyretics and analgesia using IV acetaminophen and ketorolac. 12/28/24: today respiratory alkalosis, pressure control was changed to volume control, ABG after better, dc bicarb drip, continue LR75 cc/h, SHIRLENE drainage moderate, bronchospam is better, xray showed congestion, one dose of furosemide given 12/29/24 - patient had large colonic abscess, this was drained by surgery. Surgery has patient is strict NPO. OG suction yesterday had 400 cc dark green. There is also a Dobbhoff that is not being used only for surgical use. Patient is on sedation, no CPAP or sedation vacation trials per primary team. Currently drips are Versed 15, propofol 45, fentanyl 325, TPN 46. Continuing broad- spectrum antibiotics vancomycin/meropenem/micafungin. On exam patient is anasarca, albumin very low 2.5. We will match fluids, schedule Lasix 40 IV daily. Yesterday urine output was 800, today we will give 600 cc fluids only. Patient ventilator a.c. 16/4 70/30%/5.0. Recent echo EF was normal and no abnormalities. Patient has history of drug abuse, suspect renal disease nephrotic or similar causing low protein state and/or liver disease. Patient may need albumin infusion. Patient has leukocytosis, reactive thrombocytosis. Holding off Lovenox due to hemoglobin drop from 11-8. We will repeat a hemoglobin today. SHIRLENE drain with serosanguineous output. We are holding off Lovenox instead we will do SCDs. 12/30/2024 patient continues to have fevers cooling measures are being applied. Continues to remain sedated drips include Versed 15 propofol 50 fentanyl 350. We will also replete electrolytes and have TPN at 50. Patient is making good urine output Lasix 40 IV daily is being continued patient has reducing sarcoid Muniz. Bag currently with 1.6 L. We will give 1.2 L over 24 hours today. Vital signs mild tachycardia low 100s. Mechanically ventilated a.c./20/470/100%/5.0.. Surgery is not planning another OR operation, we will try sedation vacation today. No CPAP trial today. If patient does well with sedation vacation today may try CPAP trial tomorrow. Cultures are growing VRE. We will change vancomycin to linezolid. Current antibiotics we will now be linezolid/meropenem/micafungin. 12/31/24: patient is having fevers, no cpap trial for now,ct scan done in the night: Large rim enhancing fluid collection within the left abdomen extending into the pelvis measuring 34 x 24 cm consistent with abscess and peritonitis. Mesenteric edema with multiple other smaller developing loculated collections in the central mesentery. Right abdominal rim enhancing collection measuring 3 3.8 x 1.3 x 13.7 cm, surgery is aware of the findings, we will continue supportive care 01/01/25: Intraperitoneal drainage catheter placement under ultrasound guidance and Ultrasound-guided thoracentesis with drainage of 1050 mL of serosanguinous fluid were done, surgery ordered gastrografin enema, patient continued to have fevers. tylenol IV and ketorolac IV, extensive discussion with the mother about the poor prognosis of the patient, superficial thrombosis on left arm, midline removed 01/02/25: due to non surgical management for now, family meeting was held by Dr Simpson and Dr Bustamante, extensive discussion and explanation about the tests and procedures done since admission until now, the plan will be to continue expectant management, but in the case of the intraabdominal infection is non resolving, possible bowel ostomy will be considered, also the option of tracheostomy was discussed due to no near ventilation weaning possibility, gastrographin enema didnt show extravasation in the distal part of the colon and rectum, no bowel movements, patient is having fevers 01/03/25: kub is not showing extravasation of the content, we are going to continue f/u the bowel transit, T 100.8, blood cultures prelim are coming negative, discussion with family about tracheostomy was held, pending procedure 01/04/25: today HR 140s RR 40s hypertension, we are on max sedation, ketamine IV given 100 mg, tylenol and ketorolac IV given, improvement of the respiratory pattern and HR, patient is febrile, abdomen is not distended and soft but the irrigation of drain number 4 produces fouls smelling murky fluid, the remaining three drains do not produce the same kind of fluid. due to persistent leukocytosis and fever, combined with the purulent quality of fluid, surgery will proceed with exploratory laparotomy tomorrow, Most likley will do a transverse colostomy as well as there is no movement of contrast in the colon. planned tracheostomy will be done at the same time, family informed 01/07/25: patient underwent to Exploratory laparotomy, extensive lysis of adhesions, transverse colostomy and mucous fistula, abdominal lavage, evacuation of abdominal abscesses, repair of sigmoid defect, also tracheostomy was done on 01/05/25, patient needed a another reintervention the day after to exchange tracheostomy tube due to accidentally transection of the cuff during trach wound care, both procedures without complications, enterobacter VRE and citrobacter freundii is growing in the cultures 01/05, covered by linezolid, today patient is on levophed, hb was 6.2 , 1 urbc was given and later hb 6.1 at 3pm, 2 urbc given, furosemide dc, NS 60 cc/h 01/08/25: patient still having fevers, cooling measures, off pressors, HR and BP elevated, PRN doses of hydromorphone, hb 9,1 after 2 urbc, stop fluids 01/09/25: patient is on max sedation, still awake, ketamine drip started, patient had stool in the colostomy, dr simpson recommended wound vac, his right arm was more swollen and red, arm US showed extensive DVT, heparin started, furosemide started again. all these findings were discussed with the mother 01/10/25: patient is on fentanyl 350 midazolam 15 propofol 50, ketamine 14, xray today showed ARDS, peep increased by 10 RR 26 FiO2 60-45% TV 400, T max 100.2, continue heparin drip, wound vac was placed, colostomy with stool output in low amount 01/11/25: fentanyl max 400, midazolam 15 propofol 50, ketamine 18, xray still showing bilateral opacities but mild improvement, large amount of secretions on trach, ARDS vent settings, increase furosemide BID, per Dr Simpson ct scan on tuesday, new sputum culture ordered Objective vital signs Vital Sign Date Time Temp Pulse Resp B/P (MAP) Pulse Ox O2 Delivery O2 Flow Rate FiO2 01/11/25 12:42 97 28 94 01/11/25 12:10 107/63 40 01/11/25 12:00 Mechanical Ventilator+ 01/11/25 11:45 97.6 97.6 Total Intake and Output 01/10/25 01/10/25 01/11/25 15:00 23:00 07:00 Intake Total 2235.09 ml 2103.52 ml 2304.46 ml Output Total 130 ml 2500 ml Balance 2105.09 ml -396.48 ml 2304.46 ml medications Current Medications Medications Dose Ordered Sig/Sherron Route Start Time Stop Time Status Last Admin Dose Admin Pantoprazole Sodium 40 mg DAILY IV 12/18/24 10:00 01/11/25 10:56 40 MG Midazolam HCl 50 ml @ 1 mls/hr Q24H IV 12/17/24 17:00 01/11/25 12:25 15 MLS/HR Valproate Sodium 250 mg/Sodium Chloride 52.5 ml @ 52.5 mls/hr BID IV 12/17/24 22:00 01/11/25 10:00 52.5 MLS/HR Propofol 100 ml @ 2.37 mls/hr Q24H IV 12/17/24 18:15 01/11/25 11:04 23.7 MLS/HR Fentanyl Citrate 250 ml @ 2.5 mls/hr Q24H IV 12/17/24 21:15 01/11/25 12:26 35 MLS/HR Norepinephrine Bitartrate 250 ml @ 3.75 mls/hr Q24H IV 12/18/24 01:45 01/07/25 00:59 3.75 MLS/HR Diagnostic Test (Pha) 1 strip Q6HR 12/20/24 18:00 01/11/25 12:24 1 STRIP Insulin Human Regular FOLLOW SLIDING SCALE Q6HR SC 12/20/24 18:00 01/06/25 05:34 2 UNITS Dextrose 50 ml UD IV 12/20/24 14:15 12/20/24 17:47 50 ML Sodium Chloride 40 meq/Potassium Chloride 40 meq/ Potassium Phosphate 11 meq/ Calcium Gluconate 2.3 meq/Magnesium Sulfate 8 meq/ Multivitamins 10 ml/Chromium/ Copper/Manganese/ Zinc 1 ml/Amino Acids/Dextrose/ Purified Water 1,450.4462 ml @ 60 mls/hr [id number] IV 12/26/24 22:00 12/27/24 21:59 Cancel Ipratropium Grover 0.5 mg Q6HR NEB 12/27/24 18:00 01/11/25 12:41 0.5 MG Levalbuterol HCl 1.25 mg Q6HR NEB 12/27/24 18:00 01/11/25 12:41 1.25 MG Amino Acids 0 ml @ 0 mls/hr PER PHARMACY IV 12/27/24 12:30 Sodium Chloride 10 ml QSHIFT@10,22 IV 12/27/24 22:00 01/11/25 10:00 10 ML Artificial Tears 1 drop Q6HP PRN EACHEYE 12/29/24 23:45 01/06/25 09:00 1 DROP Meropenem 50 ml @ 17 mls/hr Q8HR IV 12/31/24 14:00 01/11/25 06:15 17 MLS/HR Ketamine HCl 50 mg [id number] PRN IV 01/04/25 15:00 01/05/25 07:00 Cancel Acetaminophen 1,000 mg [id number] PRN IV 01/05/25 04:00 01/08/25 21:45 1,000 MG Sodium Chloride 120 meq/Potassium Chloride 50 meq/ Potassium Acetate 50 meq/Calcium Gluconate 4.65 meq/Magnesium Sulfate 34 meq/ Multivitamins 10 ml/Chromium/ Copper/Manganese/ Zinc 1 ml/Amino Acids/Dextrose/ Purified Water 1,659.5 ml @ 68.108 mls/hr [id number] IV 01/09/25 22:00 01/10/25 21:59 Cancel Sodium Chloride 100 meq/Potassium Chloride 50 meq/ Calcium Gluconate 4.65 meq/ Magnesium Sulfate 34 meq/ Multivitamins 10 ml/Chromium/ Copper/Manganese/ Zinc 1 ml/Sodium Phosphate 20 meq/ Potassium Acetate 50 meq/Amino Acids/Dextrose/ Purified Water 1,659.5 ml @ 68.537 mls/hr [id number] IV 01/09/25 09:30 01/09/25 21:59 Cancel Furosemide 40 mg DAILY IV 01/10/25 10:00 01/11/25 10:56 40 MG Ketamine HCl 500 mg/Sodium Chloride 500 ml @ 5.82 mls/hr Q24H IV 01/09/25 11:45 01/11/25 11:15 104.76 MLS/HR Sodium Chloride 150 meq/Potassium Chloride 70 meq/ Potassium Acetate 50 meq/Calcium Gluconate 4.65 meq/Magnesium Sulfate 32 meq/ Multivitamins 10 ml/Chromium/ Copper/Manganese/ Zinc 1 ml/Amino Acids/Dextrose/ Purified Water 1,676.5 ml @ 70 mls/hr [id number] IV 01/10/25 22:00 01/11/25 21:59 01/11/25 00:51 70 MLS/HR Heparin Sodium/ Dextrose 250 ml @ 23 mls/hr [id number] IV 01/10/25 19:30 01/11/25 04:51 23 MLS/HR Micafungin Sodium 100 mg/Sodium Chloride 100 ml @ 100 mls/hr DAILY@0900 IV 01/12/25 09:00 Sodium Chloride 160 meq/Potassium Chloride 60 meq/ Potassium Acetate 60 meq/Calcium Gluconate 4.65 meq/Magnesium Sulfate 32 meq/ Multivitamins 10 ml/Chromium/ Copper/Manganese/ Zinc 1 ml/Amino Acids/Dextrose/ Purified Water 1,679 ml @ 70 mls/hr Q24H IV 01/11/25 22:00 01/12/25 21:59 Linezolid 300 ml @ 150 mls/hr Q12H IV 01/11/25 23:00 Examination General: Sedated, intubated, critically ill appearing, pale, HEENT: Normocephalic, atraumatic, pupils miotic but reactive Neck: Supple, no JVD Cardiac: Tachycardic, regular rhythm, no murmurs Lungs: Ventilated; bilateral breath sounds present Abdomen: laparotomy with skin open later with VAC, no purulent discharge, colostomy with stool (RUQ) and fistula (LUQ), colostomy protruding 3-4 cm above skin level, pink mucosa, SHIRLENE with serosanguineous discharge Neuro: Intubated, nonverbal; no purposeful movement; sedated Skin: No rashes, no petechiae noted Extremities: No edema, pale laboratory and microbiology Laboratory Tests 01/11/25 03:15 Test 01/11/25 03:15 Range/Units Serum Glucose 113 H 74-106 mg/dL Microbiology Date/Time Source Procedure Growth Status 01/06/25 14:39 Blood Blood Culture - Preliminary NO GROWTH AFTER 72 HOURS OF INCUBATION. Resulted 01/06/25 14:12 Urine - Navarrete Port Urine Culture - Final Complete 01/06/25 13:53 Sputum Gram Stain - Final Complete 01/06/25 13:53 Sputum Respiratory Culture - Final Complete 01/05/25 08:15 Other Abscess Gram Stain - Final Complete 01/05/25 08:15 Other Abscess Anaerobic Culture - Final Complete 01/05/25 08:15 Aerobic Culture - Final Enterococcus faecium - VRE Complete 01/05/25 08:02 Peritoneal Fluid Gram Stain - Final Complete 01/05/25 08:02 Peritoneal Fluid Anaerobic Culture - Final Complete 01/05/25 08:02 Aerobic Culture - Final Enterococcus faecium - VRE Citrobacter freundii Complete Problem List/Assessment/Plan Problem List/Assessment/Plan Neurology #Acute metabolic encephalopathy due to sepsis Patient is on midazolam, propofol, fentanyl and ketamine RASS -1 #Epilepsy Valproic acid BID monitor valproic acid levels daily: avoid toxicity Cardiology #Septic shock due to intraabdominal infection wean off levophed wean off vasopressin wean off phenylephrine ECHO : EF 50-55% normal furosemide iv daily Respiratory #Moderate ARDS PaO2/FiO2 180 #Acute hypoxic respiratory failure #sp mechanical ventilation- 12/17/24 #Possible gram+/gram - pneumonia #Severe respiratory acidosis resolved #Severe bronchospasm resolved #Respiratory alkalosis #Pulmonary edema meropenem + vancomycin+ micafungin 01/10/25: patient is on fentanyl 350 midazolam 15 propofol 50, ketamine 14, xray today showed ARDS, peep increased by 10 RR 26 FiO2 60-45% TV 400, T max 100.2, continue heparin drip, wound vac was placed, colostomy with stool output in low amount 01/11/25: fentanyl max 400, midazolam 15 propofol 50, ketamine 18, xray still showing bilateral opacities but mild improvement, large amount of secretions, ARDS vent settings, increase furosemide BID, per Dr Simpson ct scan on tuesday, new sputum culture ordered Renal #Septic shock due to UTI resolved /intraabdominal infection navarrete catheter with cloudy urine UA multiple wbc and rbc Meropenem + linezolid + micafungin new culture is negative in urine GI OG tube on suction TPN per pharmacy #sp Exploratory laparotomy, lysis of adhesions and removal of intraperitoneal fibrinous adhesions covering the entire peritoneal cavity. #Septic shock due to possible bowel ischemia and bowel obstruction #Ascites, multiloculated #Severe constipation, ileus #Gastroparesis #sp Exploratory laparotomy, extensive lysis of adhesions, transverse colostomy and mucous fistula, abdominal lavage, evacuation of abdominal abscesses, repair of sigmoid defect 01/05/25 #sp tracheostomy 01/05/25 #sp reinsertion tracheostomy tube 01/05/[address] scan: Diffuse colitis with small perihepatic ascites and small amount of ascites present OG tube drainage elevated Meropenem + linezolid No bowel movements 12/26/24: ultrasound showed multiloculated ascites, no paracentesis were performed, due to the possible upper fecal impaction, GI, Dr Bailey, was consulted to perform a colonoscopy which showed In the proximal sigmoid or at the junction of the sigmoid and descending colon there appeared to be an ischemic area and there was an area of a large fluid collection and 6 L of greenish brown liquid which was aspirated along with some stool. There is a possibility that the patient may have a previous area of spontaneous perforation and this fluid may have been aspirated possibly from the peritoneal cavity. The colonoscope was not advanced beyond this area. Surgery Dr Simpson, will perform exploratory laparotomy due to the possibility of bowel ischemia, risk and benefits were explained to the mother, the possibility of colostomy was also discussed, stop TPN, continue suction Intrabadominal pressure: 9-10 mmhg 12/27/24 The patient underwent exploratory laparotomy, during which approximately 2 liters of purulent fluid were drained. Extensive fibrinous adhesions were noted throughout the peritoneal cavity, necessitating adhesiolysis and removal of intraperitoneal fibrin. Due to significant inflammation and concern for bowel integrity, the surgical team avoided aggressive mobilization. No evidence of gastrointestinal perforation was identified. Four Jeanmarie-Dooley drains were placed, and the cavity was copiously irrigated with 10 liters of saline. Postoperatively, the patient exhibited elevated peak airway pressures and severe respiratory acidosis. Ventilator settings were transitioned to pressure control, and bronchodilator therapy was initiated for wheezing. A bicarbonate drip was started with subsequent improvement in acid-base status. The patient is on broad-spectrum antimicrobials including meropenem, vancomycin, and micafungin, along with antipyretics and analgesia using IV acetaminophen and ketorolac. 12/28/24: today respiratory alkalosis, pressure control was changed to volume control, ABG after better, dc bicarb drip, continue LR75 cc/h, SHIRLENE drainage moderate, bronchospam is better, xray showed congestion, one dose of furosemide given 12/31/24: patient is having fevers, no cpap trial for now, ct scan done in the night: Large rim enhancing fluid collection within the left abdomen extending into the pelvis measuring 34 x 24 cm consistent with abscess and peritonitis. Mesenteric edema with multiple other smaller developing loculated collections in the central mesentery. Right abdominal rim enhancing collection measuring 3 3.8 x 1.3 x 13.7 cm, surgery is aware of the findings, we will continue supportive care 01/01/25: Intraperitoneal drainage catheter placement under ultrasound guidance and Ultrasound-guided thoracentesis with drainage of 1050 mL of serosanguinous fluid were done, surgery ordered gastrografin enema, patient continued to have fevers. tylenol IV and ketorolac IV, extensive discussion with the mother about the poor prognosis of the patient 01/02/25: due to non surgical management for now, family meeting was held by Dr Simpson and Dr Bustamante, extensive discussion and explanation about the tests and procedures done since admission until now, the plan will be to continue expectant management, but in the case of the intraabdominal infection is non resolving, possible bowel ostomy will be considered, also the option of tracheostomy was discussed due to no near ventilation weaning possibility, gastrographin enema didnt show extravasation in the distal part of the colon and rectum, no bowel movements, patient is having fevers 01/03/25: kub is not showing extravasation of the content, we are going to continue f/u the bowel transit, T 100.8, blood cultures prelim are coming negative, discussion with family about tracheostomy was held, pending procedure 01/04/25: patient is febrile, abdomen is not distended and soft but the irrigation of drain number 4 produces fouls smelling murky fluid, the remaining three drains do not produce the same kind of fluid. due to persistent leukocytosis and fever, combined with the purulent quality of fluid, surgery will proceed with exploratory laparotomy tomorrow, Most likely will do a transverse colostomy as well as there is no movement of contrast in the colon. planned tracheostomy will be done at the same time, family informed 01/07/25: patient underwent to Exploratory laparotomy, extensive lysis of adhesions, transverse colostomy and mucous fistula, abdominal lavage, evacuation of abdominal abscesses, repair of sigmoid defect, also tracheostomy was done on 01/05/25, patient needed a another reintervention the day after to exchange tracheostomy tube due to accidentally transection of the cuff during trach wound care, both procedures without complications, enterobacter VRE and citrobacter freundii is growing in the cultures 01/05, covered by linezolid, today patient is on levophed, hb was 6.2 , 1 urbc was given and later hb 6.1 at 3pm, 2 urbc given, furosemide dc, NS 60 cc/h 01/08/25: patient still having fevers, cooling measures, off pressors, HR and BP elevated, PRN doses of hydromorphone, hb 9,1 after 2 urbc, stop fluids 01/09/25: patient is on max sedation, still awake, ketamine drip started, patient had stool in the colostomy, dr simpson recommended wound vac, his right arm was more swollen and red, arm US showed extensive DVT, heparin started, furosemide started again. all these findings were discussed with the mother #Esophageal varices? per history No findings in CT scan, no hematemesis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
[2025-01-11] MEDS: MICAFUNGIN SODIUM 100 MG in SODIUM CHL 0.9% 100 ML IV ONE (13:00)
[2025-01-11 14:18] LABS: INR 1.18 (0.9-1.15); Partial Thromboplastin Time 28.2 SEC (24.5-34.5); Prothrombin Time 12.3 sec (9.3-11.8)
[2025-01-11 15:05] LABS: INR 1.12 (0.9-1.15); Partial Thromboplastin Time 45.4 SEC (24.5-34.5); Prothrombin Time 11.7 sec (9.3-11.8)
--- NOTE | 2025-01-11 15:57 | CONS ---
Pharmacy Clinical Information: HEPARIN DRIP PROTOCOL PTT 45.4 OLD RATE 23ML/HR (2300 UNITS/HR) NEW RATE 25ML/HR (2500 UNITS/HR) NEXT PTT 01/11 @2029 COMMUNICATED WITH RN VIRIDIANA FOURNIER PHARMACIST Jan 11, 2025 15:57
[2025-01-11] MEDS: HEPARIN DRIP/D5W 100UNITS/ML 250 ML IV SCH (17:10)
[2025-01-11] MEDS: FUROSEMIDE 40 MG/4 ML VIAL IV SCH (18:33)
[2025-01-11 20:41] LABS: INR 1.11 (0.9-1.15); Partial Thromboplastin Time 60.7 SEC (24.5-34.5); Prothrombin Time 11.6 sec (9.3-11.8)
--- NOTE | 2025-01-11 21:39 | DVHPN2 ---
Progress Note - Dictate Date Seen: Jan 11, 2025 Has the PT tested + for MRSA If YES, has PT been informed?: No Medical Necessity Reason Pt with a Central, PICC or Fol: Yes The following are medically ne: Navarrete Catheter Reason for navarrete catheter: Strict I&O Subjective Post op Day # 6 s/p Exploratory laparotomy, extensive lysis of adhesions, transverse colostomy and mucus fistula, abdominal lavage, evacuation of abdominal abscesses, repair of sigmoid defect. Postop day 5. S/P tracheostomy Hemoglobin stable at 9.0 after 2 units PRBC No active GI bleeding reported Leukocytosis improving; thrombocytosis improving Patient is on multiple antibiotics Patient is off pressors Patient is on max sedation, still awake, ketamine drip started, patient had small stool in the colostomy, has wound vac, his right arm was more swollen and red, arm US showed extensive DVT, heparin started,; PT INR therapeutic vital signs Vital Sign Date Time Temp Pulse Resp B/P (MAP) Pulse Ox O2 Delivery O2 Flow Rate FiO2 01/11/25 21:27 137/79 01/11/25 20:12 127 32 96 45 01/11/25 20:00 Mechanical Ventilator+ 01/11/25 15:30 98.6 98.6 Total Intake and Output 01/10/25 01/10/25 01/11/25 15:00 23:00 07:00 Intake Total 2235.09 ml 2103.52 ml 2304.46 ml Output Total 130 ml 2500 ml Balance 2105.09 ml -396.48 ml 2304.46 ml medications Current Medications Medications Dose Ordered Sig/Sherron Route Start Time Stop Time Status Last Admin Dose Admin Pantoprazole Sodium 40 mg DAILY IV 12/18/24 10:00 01/11/25 10:56 40 MG Midazolam HCl 50 ml @ 1 mls/hr Q24H IV 12/17/24 17:00 01/11/25 21:27 15 MLS/HR Valproate Sodium 250 mg/Sodium Chloride 52.5 ml @ 52.5 mls/hr BID IV 12/17/24 22:00 01/11/25 10:00 52.5 MLS/HR Propofol 100 ml @ 2.37 mls/hr Q24H IV 12/17/24 18:15 01/11/25 20:33 23.7 MLS/HR Fentanyl Citrate 250 ml @ 2.5 mls/hr Q24H IV 12/17/24 21:15 01/11/25 18:57 40 MLS/HR Norepinephrine Bitartrate 250 ml @ 3.75 mls/hr Q24H IV 12/18/24 01:45 01/07/25 00:59 3.75 MLS/HR Diagnostic Test (Pha) 1 strip Q6HR 12/20/24 18:00 01/11/25 18:24 1 STRIP Insulin Human Regular FOLLOW SLIDING SCALE Q6HR SC 12/20/24 18:00 01/06/25 05:34 2 UNITS Dextrose 50 ml UD IV 12/20/24 14:15 12/20/24 17:47 50 ML Sodium Chloride 40 meq/Potassium Chloride 40 meq/ Potassium Phosphate 11 meq/ Calcium Gluconate 2.3 meq/Magnesium Sulfate 8 meq/ Multivitamins 10 ml/Chromium/ Copper/Manganese/ Zinc 1 ml/Amino Acids/Dextrose/ Purified Water 1,450.4462 ml @ 60 mls/hr [id number] IV 12/26/24 22:00 12/27/24 21:59 Cancel Ipratropium Clifton 0.5 mg Q6HR NEB 12/27/24 18:00 01/11/25 18:11 0.5 MG Levalbuterol HCl 1.25 mg Q6HR NEB 12/27/24 18:00 01/11/25 18:11 1.25 MG Amino Acids 0 ml @ 0 mls/hr PER PHARMACY IV 12/27/24 12:30 Sodium Chloride 10 ml QSHIFT@10,22 IV 12/27/24 22:00 01/11/25 10:00 10 ML Artificial Tears 1 drop Q6HP PRN EACHEYE 12/29/24 23:45 01/06/25 09:00 1 DROP Meropenem 50 ml @ 17 mls/hr Q8HR IV 12/31/24 14:00 01/11/25 06:15 17 MLS/HR Ketamine HCl 50 mg [id number] PRN IV 01/04/25 15:00 01/05/25 07:00 Cancel Acetaminophen 1,000 mg [id number] PRN IV 01/05/25 04:00 01/08/25 21:45 1,000 MG Sodium Chloride 120 meq/Potassium Chloride 50 meq/ Potassium Acetate 50 meq/Calcium Gluconate 4.65 meq/Magnesium Sulfate 34 meq/ Multivitamins 10 ml/Chromium/ Copper/Manganese/ Zinc 1 ml/Amino Acids/Dextrose/ Purified Water 1,659.5 ml @ 68.108 mls/hr [id number] IV 01/09/25 22:00 01/10/25 21:59 Cancel Sodium Chloride 100 meq/Potassium Chloride 50 meq/ Calcium Gluconate 4.65 meq/ Magnesium Sulfate 34 meq/ Multivitamins 10 ml/Chromium/ Copper/Manganese/ Zinc 1 ml/Sodium Phosphate 20 meq/ Potassium Acetate 50 meq/Amino Acids/Dextrose/ Purified Water 1,659.5 ml @ 68.537 mls/hr [id number] IV 01/09/25 09:30 01/09/25 21:59 Cancel Ketamine HCl 500 mg/Sodium Chloride 500 ml @ 5.82 mls/hr Q24H IV 01/09/25 11:45 01/11/25 21:27 116.4 MLS/HR Sodium Chloride 150 meq/Potassium Chloride 70 meq/ Potassium Acetate 50 meq/Calcium Gluconate 4.65 meq/Magnesium Sulfate 32 meq/ Multivitamins 10 ml/Chromium/ Copper/Manganese/ Zinc 1 ml/Amino Acids/Dextrose/ Purified Water 1,676.5 ml @ 70 mls/hr [id number] IV 01/10/25 22:00 01/11/25 21:59 01/11/25 00:51 70 MLS/HR Micafungin Sodium 100 mg/Sodium Chloride 100 ml @ 100 mls/hr DAILY@0900 IV 01/12/25 09:00 Sodium Chloride 160 meq/Potassium Chloride 60 meq/ Potassium Acetate 60 meq/Calcium Gluconate 4.65 meq/Magnesium Sulfate 32 meq/ Multivitamins 10 ml/Chromium/ Copper/Manganese/ Zinc 1 ml/Amino Acids/Dextrose/ Purified Water 1,679 ml @ 70 mls/hr Q24H IV 01/11/25 22:00 01/12/25 21:59 Linezolid 300 ml @ 150 mls/hr Q12H IV 01/11/25 23:00 Heparin Sodium/ Dextrose 250 ml @ 25 mls/hr Q10H IV 01/11/25 15:30 01/11/25 17:10 25 MLS/HR Furosemide 40 mg BIDD IV 01/11/25 18:00 01/11/25 18:33 40 MG objective General Appearance: On ventilator, FiO2 30% HEENT: Atraumatic, PERRLA, EOMI, Mucous membr. moist/pink Respiratory: Normal air movement, Other (On ventilator) Cardiovascular: Regular rate, Normal S1, Normal S2, No murmurs Abdominal: Binder in place, soft, distended, no bowel sounds; minimal colostomy liquid output Extremities: No clubbing, No cyanosis, No edema, Normal pulses, No tenderness/swelling Skin: No rashes, No breakdown, No significant lesion Neuro: Normal speech, Normal tone, Sensation intact, Cranial nerves 3-12 NL, Reflexes 2+, Other (Generalized weakness) Psych/Mental Status: Mood NL, Other (Altered mental status) Rectal exam, normal tone no obstipation rectal mass or obstruction noted and no stool in the rectum laboratory and microbiology Laboratory Tests 01/11/25 03:15 Test 01/11/25 03:15 Range/Units Serum Glucose 113 H 74-106 mg/dL Problems(with codes): (1) Sigmoid colon injury (2) Septicemia due to vancomycin resistant Enterococcus (VRE) species (3) Peritonitis (4) Neuropathy involving both lower extremities (5) Constipation (6) Acute respiratory failure (7) Sepsis, unspecified organism (8) Generalized weakness (9) Acute abdominal pain (10) Abnormal finding on GI tract imaging (11) Leukocytosis Prognosis Plan Patient continues to have low-grade fevers and has suspicion for possible ARDS Is FiO2 is increase to 45% to keep O2 sats about 92% Continue supportive care ventilator support IV antibiotics Prognosis remains guarded If the patient's colostomy continues to function there is a plan for possible CT of the abdomen repeat on Tuesday we can consider Gastrografin or oral contrast If the colostomy is functional then patient can be started on NG tube feedings and TPN can be tapered off overall his prognosis remains guarded Dietary Evaluation Review Comments: 1. TF: Vital AF@50ml/hr (90g protein, 1440kcal 973 free water) meeting Protein needs 83%, energy needs 80%. 2. TPN per pharmacy meeting 75% of his needs if TF not feasible or NPO>7 days. 3. Diet as tolerated per [employer] eval when off Vent Expected Outcomes/Goals: Preventing catabolism Plan discussed with: Other (ICU Nurse) MAO COLEMAN MD Jan 11, 2025 21:39
[2025-01-12] VITALS (106 sets, daily range): BP systolic 90–168; BP diastolic 52–96; PULSE 97–135; RESP 16–49; TEMP 97.2–101.3; O2SAT 90–100
[2025-01-12 02:27] LABS: Hemoglobin 8.9 g/dL (13.5-17.5); Mean Corpuscular Volume 86.9 fL (80.0-100.0)
[2025-01-12 02:29] LABS: Hematocrit 25.6 % (41.0-53.0); Mean Corpuscular Hemoglobin 30.2 pg (28.0-32.0); Nucleated Red Blood Cells % 0.1 %
[2025-01-12] MEDS: LINEZOLID 600MG/300ML 300 ML IV SCH (02:30)
[2025-01-12 02:47] LABS: Alanine Aminotransferase 15 U/L (7-40); Anion Gap 10 (5-15); BUN/Creatinine Ratio 41.9 (10.0-20.0); Blood Urea Nitrogen 13 mg/dL (9-23); Carbon Dioxide 28 mmol/L (20-31); Chloride 101 mmol/L (98-107); Glucose 102 mg/dL (74-106); Magnesium 1.9 mg/dL (1.6-2.6); Potassium 4.0 mmol/L (3.5-5.1); Sodium 139 mmol/L (136-145); Total Protein 6.3 g/dL (5.7-8.2)
[2025-01-12 02:49] LABS: Albumin 3.2 g/dL (3.2-4.8); Alkaline Phosphatase 156 U/L (46-116); Bilirubin, Total 0.3 mg/dL (0.2-1.0); Calcium 8.2 mg/dL (8.7-10.4)
--- NOTE | 2025-01-12 05:50 | DVH ---
CHEST RADIOGRAPH Indication: intubated Technique: Single frontal view of the chest was obtained COMPARISON: XY CHEST PORTABLE on DOS: 01/11/25, XY CHEST XRAY 1 VIEW on DOS: 01/10/25, XY CHEST XRAY 1 VIEW on DOS: 01/09/25, XY CHEST XRAY 1 VIEW on DOS: 01/08/25, XY CHEST XRAY 1 VIEW on DOS: 01/07/25 FINDINGS: Lines and Tubes: Tracheostomy and enteric catheter in satisfactory position. Right PICC in satisfact ory position. Lungs: Multifocal airspace disease Pleura: No effusion. No pneumothorax. Cardiomediastinal contours: Cardiomegaly Bones: Unremarkable IMPRESSION: Lines and tubes in satisfactory position. No significant interval change.
[2025-01-12] MEDS: MICAFUNGIN SODIUM 100 MG in SODIUM CHL 0.9% 100 ML IV SCH (08:12)
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
[2025-01-12 08:34] LABS: Nucleated Red Blood Cells % 0.0 %
[2025-01-12 08:36] LABS: Hematocrit 24.6 % (41.0-53.0); Hemoglobin 8.4 g/dL (13.5-17.5); Mean Corpuscular Hemoglobin 29.9 pg (28.0-32.0); Mean Corpuscular Volume 87.2 fL (80.0-100.0)
[2025-01-12 08:43] LABS: INR 1.11 (0.9-1.15); Partial Thromboplastin Time 61.5 SEC (24.5-34.5); Prothrombin Time 11.6 sec (9.3-11.8)
[2025-01-12 08:45] LABS: Alanine Aminotransferase 14 U/L (7-40); Albumin 3.1 g/dL (3.2-4.8); Alkaline Phosphatase 151 U/L (46-116); Anion Gap 8 (5-15); BUN/Creatinine Ratio 39.0 (10.0-20.0); Bilirubin, Total 0.3 mg/dL (0.2-1.0); Blood Urea Nitrogen 16 mg/dL (9-23); Calcium 8.9 mg/dL (8.7-10.4); Carbon Dioxide 31 mmol/L (20-31); Chloride 100 mmol/L (98-107); Glucose 98 mg/dL (74-106); Magnesium 1.7 mg/dL (1.6-2.6); Potassium 3.8 mmol/L (3.5-5.1); Sodium 139 mmol/L (136-145); Total Protein 6.2 g/dL (5.7-8.2)
--- NOTE | 2025-01-12 18:28 | DVHPN2 ---
Subjective I am assuming the care of the patient from today onwards. Patient's remains intubated and sedated. Reviewed: H&P Changes from previous H/P or p: No Changes General: Per HPI Eyes: No Pain, No Vision change, No Conjunctivae inflammation, No Eyelid inflammation, No Other, No Redness ENT: No Ear pain, No Ear discharge, No Nose pain, No Nose discharge, No Nose congestion, No Mouth pain, No Mouth swelling, No Throat pain, No Throat swelling, No Other Cardiovascular: No Chest Pain, No Palpitations, No Orthopnea, No Paroxysmal Noc. Dyspnea, No Edema, No Lt Headedness, No Other Respiratory: No Cough, No Dry, No Shortness of breath, No SOB with excertion, No Wheezing, No Hemoptysis, No Pleuritic Pain, No Sputum, No Other Gastrointestinal: Abdominal Pain Genitourinary: No Dysuria, No Frequency, No Incontinence, No Hematuria, No Retention, No Other Musculoskeletal: No other, No neck pain, No shoulder pain, No arm pain, No back pain, No hand pain, No leg pain, No foot pain Skin: No Rash, No Lesions, No Jaundice, No Bruising, No Other Objective Vitals Vital Signs Date Time Temp Pulse Resp B/P (MAP) Pulse Ox O2 Delivery O2 Flow Rate FiO2 01/12/25 16:00 55 01/12/25 16:00 116 01/12/25 16:00 26 97 Mechanical Ventilator+ 01/12/25 16:00 100.2 130/75 (93) 100.2 Intake/Output Intake and Output 01/12/25 07:00 Intake Total 6906.24 ml Output Total 5980 ml Balance 926.24 ml Intake Oral 0 ml IV Total 6906.24 ml Output Urine Total 5350 ml Stool Total 20 ml Gastric Drainage Total 550 ml Other 60 ml Exam HEENT pupils are reactive Neck is supple CV is S1-S2 regular rate and rhythm Respiratory diminished breath sounds bilateral lung bases GI positive bowel sound Extremity no edema [employer] intubated and sedated. General Appearance: Other HEENT: Atraumatic, Mucous membr. moist/pink Lungs: Clear to auscultation, Normal air movement Cardiovascular: Regular rate, Normal S1, Normal S2, No murmurs, Gallops, Rubs Abdomen: Normal bowel sounds, Soft Extremities: Normal pulses Skin: Intact Medications Current Medications Medications Dose Ordered Sig/Sherron Route Start Time Stop Time Status Last Admin Dose Admin Pantoprazole Sodium 40 mg DAILY IV 12/18/24 10:00 01/12/25 08:11 40 MG Midazolam HCl 50 ml @ 1 mls/hr Q24H IV 12/17/24 17:00 01/12/25 11:59 15 MLS/HR Valproate Sodium 250 mg/Sodium Chloride 52.5 ml @ 52.5 mls/hr BID IV 12/17/24 22:00 01/12/25 10:20 52.5 MLS/HR Propofol 100 ml @ 2.37 mls/hr Q24H IV 12/17/24 18:15 01/12/25 17:24 23.7 MLS/HR Fentanyl Citrate 250 ml @ 2.5 mls/hr Q24H IV 12/17/24 21:15 01/12/25 17:25 40 MLS/HR Norepinephrine Bitartrate 250 ml @ 3.75 mls/hr Q24H IV 12/18/24 01:45 01/07/25 00:59 3.75 MLS/HR Diagnostic Test (Pha) 1 strip Q6HR 12/20/24 18:00 01/12/25 18:18 1 STRIP Insulin Human Regular FOLLOW SLIDING SCALE Q6HR SC 12/20/24 18:00 01/06/25 05:34 2 UNITS Dextrose 50 ml UD IV 12/20/24 14:15 12/20/24 17:47 50 ML Sodium Chloride 40 meq/Potassium Chloride 40 meq/ Potassium Phosphate 11 meq/ Calcium Gluconate 2.3 meq/Magnesium Sulfate 8 meq/ Multivitamins 10 ml/Chromium/ Copper/Manganese/ Zinc 1 ml/Amino Acids/Dextrose/ Purified Water 1,450.4462 ml @ 60 mls/hr [id number] IV 12/26/24 22:00 12/27/24 21:59 Cancel Ipratropium [place] 0.5 mg Q6HR NEB 12/27/24 18:00 01/12/25 12:03 0.5 MG Levalbuterol HCl 1.25 mg Q6HR NEB 12/27/24 18:00 01/12/25 12:03 1.25 MG Amino Acids 0 ml @ 0 mls/hr PER PHARMACY IV 12/27/24 12:30 Sodium Chloride 10 ml QSHIFT@10,22 IV 12/27/24 22:00 01/12/25 10:05 10 ML Artificial Tears 1 drop Q6HP PRN EACHEYE 12/29/24 23:45 01/06/25 09:00 1 DROP Meropenem 50 ml @ 17 mls/hr Q8HR IV 12/31/24 14:00 01/12/25 14:00 17 MLS/HR Ketamine HCl 50 mg [id number] PRN IV 01/04/25 15:00 01/05/25 07:00 Cancel Acetaminophen 1,000 mg [id number] PRN IV 01/05/25 04:00 01/08/25 21:45 1,000 MG Sodium Chloride 120 meq/Potassium Chloride 50 meq/ Potassium Acetate 50 meq/Calcium Gluconate 4.65 meq/Magnesium Sulfate 34 meq/ Multivitamins 10 ml/Chromium/ Copper/Manganese/ Zinc 1 ml/Amino Acids/Dextrose/ Purified Water 1,659.5 ml @ 68.108 mls/hr [id number] IV 01/09/25 22:00 01/10/25 21:59 Cancel Sodium Chloride 100 meq/Potassium Chloride 50 meq/ Calcium Gluconate 4.65 meq/ Magnesium Sulfate 34 meq/ Multivitamins 10 ml/Chromium/ Copper/Manganese/ Zinc 1 ml/Sodium Phosphate 20 meq/ Potassium Acetate 50 meq/Amino Acids/Dextrose/ Purified Water 1,659.5 ml @ 68.537 mls/hr [id number] IV 01/09/25 09:30 01/09/25 21:59 Cancel Ketamine HCl 500 mg/Sodium Chloride 500 ml @ 5.82 mls/hr Q24H IV 01/09/25 11:45 01/12/25 10:06 116.4 MLS/HR Micafungin Sodium 100 mg/Sodium Chloride 100 ml @ 100 mls/hr DAILY@0900 IV 01/12/25 09:00 01/12/25 08:12 100 MLS/HR Sodium Chloride 160 meq/Potassium Chloride 60 meq/ Potassium Acetate 60 meq/Calcium Gluconate 4.65 meq/Magnesium Sulfate 32 meq/ Multivitamins 10 ml/Chromium/ Copper/Manganese/ Zinc 1 ml/Amino Acids/Dextrose/ Purified Water 1,679 ml @ 70 mls/hr Q24H IV 01/11/25 22:00 01/12/25 21:59 01/11/25 21:45 70 MLS/HR Linezolid 300 ml @ 150 mls/hr Q12H IV 01/11/25 23:00 01/12/25 11:37 150 MLS/HR Heparin Sodium/ Dextrose 250 ml @ 25 mls/hr Q10H IV 01/11/25 15:30 01/12/25 11:34 25 MLS/HR Furosemide 40 mg BIDD IV 01/11/25 18:00 01/12/25 05:31 40 MG Sodium Chloride 160 meq/Potassium Chloride 80 meq/ Potassium Acetate 50 meq/Calcium Gluconate 2.3 meq/ Magnesium Sulfate 36 meq/ Multivitamins 10 ml/Chromium/ Copper/Manganese/ Zinc 1 ml/Amino Acids/Dextrose/ Purified Water 1,679.9462 ml @ 70 mls/hr Q24H IV 01/12/25 22:00 01/13/25 21:59 Laboratory Results Laboratory Tests 01/12/25 07:45 Chemistry Test 01/12/25 02:00 01/12/25 07:45 Albumin 3.2 g/dL (3.2-4.8) 3.1 g/dL (3.2-4.8) L Calcium Level 8.2 mg/dL (8.7-10.4) L 8.9 mg/dL (8.7-10.4) Magnesium Level 1.9 mg/dL (1.6-2.6) 1.7 mg/dL (1.6-2.6) Phosphorus Level 4.7 mg/dL (2.4-5.1) Total Protein 6.3 g/dL (5.7-8.2) 6.2 g/dL (5.7-8.2) Coagulation Test 01/11/25 20:07 01/12/25 02:00 01/12/25 07:45 Prothrombin Time 11.6 sec (9.3-11.8) 11.6 sec (9.3-11.8) Prothrombin Time INR 1.11 (0.9-1.15) 1.11 (0.9-1.15) Activated Partial Thromboplast Time 60.7 SEC (24.5-34.5) H 57.4 SEC (24.5-34.5) H 61.5 SEC (24.5-34.5) H LFT Test 01/12/25 02:00 01/12/25 07:45 Alanine Aminotransferase (ALT) 15 U/L (7-40) 14 U/L (7-40) Alkaline Phosphatase 156 U/L (46-116) H 151 U/L (46-116) H Aspartate Amino Transferase (AST) 25 U/L (13-40) 24 U/L (13-40) Total Bilirubin 0.3 mg/dL (0.2-1.0) 0.3 mg/dL (0.2-1.0) Urinalysis Test 12/18/24 08:16 Urine Color Dark-brown (Yellow) Urine Clarity Ex.turbid (Clear) Urine pH 6.0 (5.0-9.0) Urine Specific [place] 1.041 (1.001-1.035) Urine Protein 1+ (Negative) H Urine Ketones Negative (Negative) Urine Blood Trace /uL (Negative) H Urine Nitrite Negative (Negative) Urine Bilirubin Negative (Negative) Urine Urobilinogen Normal mg/dL (Negative) Urine Leukocyte Esterase Negative /uL (Negative) Urine RBC 30 /hpf (0 - 3) Urine WBC Clumps Present /hpf (None Seen) Urine Microscopic WBC 151 /HPF (0-3) H Urine Squamous Epithelial Cells None seen /hpf (<5) Urine Bacteria None seen /hpf (None Seen) Urine Mucus Few (None Seen) Urine Glucose Normal mg/dL (Normal) Microbiology Microbiology Date/Time Source Procedure Growth Status 01/06/25 14:39 Blood Blood Culture - Final NO GROWTH AFTER 5 DAYS OF INCUBATION. Complete 01/06/25 14:12 Urine - [place] Urine Culture - Final Complete 01/06/25 13:53 Sputum Gram Stain - Final Complete 01/06/25 13:53 Sputum Respiratory Culture - Final Complete 01/05/25 08:15 Other Abscess Gram Stain - Final Complete 01/05/25 08:15 Other Abscess Anaerobic Culture - Final Complete 01/05/25 08:15 Aerobic Culture - Final Enterococcus faecium - VRE Complete 01/05/25 08:02 Peritoneal Fluid Gram Stain - Final Complete 01/05/25 08:02 Peritoneal Fluid Anaerobic Culture - Final Complete 01/05/25 08:02 Aerobic Culture - Final Enterococcus faecium - VRE Citrobacter freundii Vanc Resistant Enterococcus Complete Assessment/Plan Plan discussed with: Other CRISTIANE CAMPBELL MD Jan 12, 2025 18:28
--- NOTE | 2025-01-12 18:31 | DVHPN2 ---
Subjective I am assuming the care of the patient from today onwards. Patient's remains intubated and sedated. Reviewed: H&P Changes from previous H/P or p: No Changes General: Per HPI Eyes: No Pain, No Vision change, No Conjunctivae inflammation, No Eyelid inflammation, No Other, No Redness ENT: No Ear pain, No Ear discharge, No Nose pain, No Nose discharge, No Nose congestion, No Mouth pain, No Mouth swelling, No Throat pain, No Throat swelling, No Other Cardiovascular: No Chest Pain, No Palpitations, No Orthopnea, No Paroxysmal Noc. Dyspnea, No Edema, No Lt Headedness, No Other Respiratory: No Cough, No Dry, No Shortness of breath, No SOB with excertion, No Wheezing, No Hemoptysis, No Pleuritic Pain, No Sputum, No Other Gastrointestinal: Abdominal Pain Genitourinary: No Dysuria, No Frequency, No Incontinence, No Hematuria, No Retention, No Other Musculoskeletal: No other, No neck pain, No shoulder pain, No arm pain, No back pain, No hand pain, No leg pain, No foot pain Skin: No Rash, No Lesions, No Jaundice, No Bruising, No Other Objective Vitals Vital Signs Date Time Temp Pulse Resp B/P (MAP) Pulse Ox O2 Delivery O2 Flow Rate FiO2 01/12/25 16:00 55 01/12/25 16:00 116 01/12/25 16:00 26 97 Mechanical Ventilator+ 01/12/25 16:00 100.2 130/75 (93) 100.2 Intake/Output Intake and Output 01/12/25 07:00 Intake Total 6906.24 ml Output Total 5980 ml Balance 926.24 ml Intake Oral 0 ml IV Total 6906.24 ml Output Urine Total 5350 ml Stool Total 20 ml Gastric Drainage Total 550 ml Other 60 ml Exam HEENT pupils are reactive Neck is supple CV is S1-S2 regular rate and rhythm Respiratory diminished breath sounds bilateral lung bases GI positive bowel sound Extremity no 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 General Appearance: Other HEENT: Atraumatic, Mucous membr. moist/pink Lungs: Clear to auscultation, Normal air movement Cardiovascular: Regular rate, Normal S1, Normal S2, No murmurs, Gallops, Rubs Abdomen: Normal bowel sounds, Soft Extremities: Normal pulses Skin: Intact Medications Current Medications Medications Dose Ordered Sig/Sherron Route Start Time Stop Time Status Last Admin Dose Admin Pantoprazole Sodium 40 mg DAILY IV 12/18/24 10:00 01/12/25 08:11 40 MG Midazolam HCl 50 ml @ 1 mls/hr Q24H IV 12/17/24 17:00 01/12/25 11:59 15 MLS/HR Valproate Sodium 250 mg/Sodium Chloride 52.5 ml @ 52.5 mls/hr BID IV 12/17/24 22:00 01/12/25 10:20 52.5 MLS/HR Propofol 100 ml @ 2.37 mls/hr Q24H IV 12/17/24 18:15 01/12/25 17:24 23.7 MLS/HR Fentanyl Citrate 250 ml @ 2.5 mls/hr Q24H IV 12/17/24 21:15 01/12/25 17:25 40 MLS/HR Norepinephrine Bitartrate 250 ml @ 3.75 mls/hr Q24H IV 12/18/24 01:45 01/07/25 00:59 3.75 MLS/HR Diagnostic Test (Pha) 1 strip Q6HR 12/20/24 18:00 01/12/25 18:18 1 STRIP Insulin Human Regular FOLLOW SLIDING SCALE Q6HR SC 12/20/24 18:00 01/06/25 05:34 2 UNITS Dextrose 50 ml UD IV 12/20/24 14:15 12/20/24 17:47 50 ML Sodium Chloride 40 meq/Potassium Chloride 40 meq/ Potassium Phosphate 11 meq/ Calcium Gluconate 2.3 meq/Magnesium Sulfate 8 meq/ Multivitamins 10 ml/Chromium/ Copper/Manganese/ Zinc 1 ml/Amino Acids/Dextrose/ Purified Water 1,450.4462 ml @ 60 mls/hr [id number] IV 12/26/24 22:00 12/27/24 21:59 Cancel Ipratropium [place] 0.5 mg Q6HR NEB 12/27/24 18:00 01/12/25 12:03 0.5 MG Levalbuterol HCl 1.25 mg Q6HR NEB 12/27/24 18:00 01/12/25 12:03 1.25 MG Amino Acids 0 ml @ 0 mls/hr PER PHARMACY IV 12/27/24 12:30 Sodium Chloride 10 ml QSHIFT@10,22 IV 12/27/24 22:00 01/12/25 10:05 10 ML Artificial Tears 1 drop Q6HP PRN EACHEYE 12/29/24 23:45 01/06/25 09:00 1 DROP Meropenem 50 ml @ 17 mls/hr Q8HR IV 12/31/24 14:00 01/12/25 14:00 17 MLS/HR Ketamine HCl 50 mg [id number] PRN IV 01/04/25 15:00 01/05/25 07:00 Cancel Acetaminophen 1,000 mg [id number] PRN IV 01/05/25 04:00 01/08/25 21:45 1,000 MG Sodium Chloride 120 meq/Potassium Chloride 50 meq/ Potassium Acetate 50 meq/Calcium Gluconate 4.65 meq/Magnesium Sulfate 34 meq/ Multivitamins 10 ml/Chromium/ Copper/Manganese/ Zinc 1 ml/Amino Acids/Dextrose/ Purified Water 1,659.5 ml @ 68.108 mls/hr [id number] IV 01/09/25 22:00 01/10/25 21:59 Cancel Sodium Chloride 100 meq/Potassium Chloride 50 meq/ Calcium Gluconate 4.65 meq/ Magnesium Sulfate 34 meq/ Multivitamins 10 ml/Chromium/ Copper/Manganese/ Zinc 1 ml/Sodium Phosphate 20 meq/ Potassium Acetate 50 meq/Amino Acids/Dextrose/ Purified Water 1,659.5 ml @ 68.537 mls/hr [id number] IV 01/09/25 09:30 01/09/25 21:59 Cancel Ketamine HCl 500 mg/Sodium Chloride 500 ml @ 5.82 mls/hr Q24H IV 01/09/25 11:45 01/12/25 10:06 116.4 MLS/HR Micafungin Sodium 100 mg/Sodium Chloride 100 ml @ 100 mls/hr DAILY@0900 IV 01/12/25 09:00 01/12/25 08:12 100 MLS/HR Sodium Chloride 160 meq/Potassium Chloride 60 meq/ Potassium Acetate 60 meq/Calcium Gluconate 4.65 meq/Magnesium Sulfate 32 meq/ Multivitamins 10 ml/Chromium/ Copper/Manganese/ Zinc 1 ml/Amino Acids/Dextrose/ Purified Water 1,679 ml @ 70 mls/hr Q24H IV 01/11/25 22:00 01/12/25 21:59 01/11/25 21:45 70 MLS/HR Linezolid 300 ml @ 150 mls/hr Q12H IV 01/11/25 23:00 01/12/25 11:37 150 MLS/HR Heparin Sodium/ Dextrose 250 ml @ 25 mls/hr Q10H IV 01/11/25 15:30 01/12/25 11:34 25 MLS/HR Furosemide 40 mg BIDD IV 01/11/25 18:00 01/12/25 05:31 40 MG Sodium Chloride 160 meq/Potassium Chloride 80 meq/ Potassium Acetate 50 meq/Calcium Gluconate 2.3 meq/ Magnesium Sulfate 36 meq/ Multivitamins 10 ml/Chromium/ Copper/Manganese/ Zinc 1 ml/Amino Acids/Dextrose/ Purified Water 1,679.9462 ml @ 70 mls/hr Q24H IV 01/12/25 22:00 01/13/25 21:59 Laboratory Results Laboratory Tests 01/12/25 07:45 Chemistry Test 01/12/25 02:00 01/12/25 07:45 Albumin 3.2 g/dL (3.2-4.8) 3.1 g/dL (3.2-4.8) L Calcium Level 8.2 mg/dL (8.7-10.4) L 8.9 mg/dL (8.7-10.4) Magnesium Level 1.9 mg/dL (1.6-2.6) 1.7 mg/dL (1.6-2.6) Phosphorus Level 4.7 mg/dL (2.4-5.1) Total Protein 6.3 g/dL (5.7-8.2) 6.2 g/dL (5.7-8.2) Coagulation Test 01/11/25 20:07 01/12/25 02:00 01/12/25 07:45 Prothrombin Time 11.6 sec (9.3-11.8) 11.6 sec (9.3-11.8) Prothrombin Time INR 1.11 (0.9-1.15) 1.11 (0.9-1.15) Activated Partial Thromboplast Time 60.7 SEC (24.5-34.5) H 57.4 SEC (24.5-34.5) H 61.5 SEC (24.5-34.5) H LFT Test 01/12/25 02:00 01/12/25 07:45 Alanine Aminotransferase (ALT) 15 U/L (7-40) 14 U/L (7-40) Alkaline Phosphatase 156 U/L (46-116) H 151 U/L (46-116) H Aspartate Amino Transferase (AST) 25 U/L (13-40) 24 U/L (13-40) Total Bilirubin 0.3 mg/dL (0.2-1.0) 0.3 mg/dL (0.2-1.0) Urinalysis Test 12/18/24 08:16 Urine Color Dark-brown (Yellow) Urine Clarity Ex.turbid (Clear) Urine pH 6.0 (5.0-9.0) Urine Specific [place] 1.041 (1.001-1.035) Urine Protein 1+ (Negative) H Urine Ketones Negative (Negative) Urine Blood Trace /uL (Negative) H Urine Nitrite Negative (Negative) Urine Bilirubin Negative (Negative) Urine Urobilinogen Normal mg/dL (Negative) Urine Leukocyte Esterase Negative /uL (Negative) Urine RBC 30 /hpf (0 - 3) Urine WBC Clumps Present /hpf (None Seen) Urine Microscopic WBC 151 /HPF (0-3) H Urine Squamous Epithelial Cells None seen /hpf (<5) Urine Bacteria None seen /hpf (None Seen) Urine Mucus Few (None Seen) Urine Glucose Normal mg/dL (Normal) Microbiology Microbiology Date/Time Source Procedure Growth Status 01/06/25 14:39 Blood Blood Culture - Final NO GROWTH AFTER 5 DAYS OF INCUBATION. Complete 01/06/25 14:12 Urine - [place] Urine Culture - Final Complete 01/06/25 13:53 Sputum Gram Stain - Final Complete 01/06/25 13:53 Sputum Respiratory Culture - Final Complete 01/05/25 08:15 Other Abscess Gram Stain - Final Complete 01/05/25 08:15 Other Abscess Anaerobic Culture - Final Complete 01/05/25 08:15 Aerobic Culture - Final Enterococcus faecium - VRE Complete 01/05/25 08:02 Peritoneal Fluid Gram Stain - Final Complete 01/05/25 08:02 Peritoneal Fluid Anaerobic Culture - Final Complete 01/05/25 08:02 Aerobic Culture - Final Enterococcus faecium - VRE Citrobacter freundii Vanc Resistant Enterococcus Complete Assessment/Plan Assessment/Plan 44-year-old male with a known history of epilepsy, gout, chronic pain presented to the hospital with a right lower quadrant abdominal pain found to have colitis with a later on found to have multiple abdominal abscesses secondary to abdominal visceral perforation status post surgical intervention device. 1. Septic shock secondary to colitis and peritonitis with suspected visceral perforation status post exploratory laparotomy with the lysis of adhesions and removal of intraperitoneal fibrinous adhesions which was covering the entire peritoneal cavity on12/27, status post Exploratory laparotomy, extensive lysis of adhesions, transverse colostomy and mucous fistula, abdominal lavage, evacuation of abdominal abscesses, repair of sigmoid defect.7 on, 2. Sigmoid colon perforation with a peritonitis and colitis 3. Septic shock 4. Acute hypoxic respiratory failure requiring intubation currently on ventilator support status post tracheostomy on01/06 5. Colitis status post colonoscopy12/26 6. Leukocytosis, improving -continue broad-spectrum IV antibiotics, follow up General surgery follow up Pulmonary recommendations patient remains critical paroxysmal guarded. Plan discussed with: Other Date of Service: Jan 12, 2025 Billing Provider: CRISTIANE CAMPBELL MD Common Visit Codes: [id number] INP/OBS CARE(HIGH) CRISTIANE CAMPBELL MD Jan 12, 2025 18:31
[2025-01-12] MEDS: POTASSIUM ACETATE IV NR (22:07)
[2025-01-12] MEDS: [UNRECOGNIZED DRUG - OTHER] IV NR (22:07)
[2025-01-12] MEDS: SODIUM CHLORIDE IV NR (22:07)
[2025-01-12] MEDS: POTASSIUM CHLORIDE IV NR (22:07)
--- NOTE | 2025-01-12 22:36 | DVHPN2 ---
Progress Note - Dictate Date Seen: Jan 12, 2025 Has the PT tested + for MRSA If YES, has PT been informed?: No Medical Necessity Reason Pt with a Central, PICC or Fol: Yes The following are medically ne: Navarrete Catheter Reason for navarrete catheter: Strict I&O Subjective Patient seen and examined at bedside. Sedated, on mechanical ventilator. S/p trach Overnight events reviewed. vital signs Vital Sign Date Time Temp Pulse Resp B/P (MAP) Pulse Ox O2 Delivery O2 Flow Rate FiO2 01/12/25 22:15 128 36 154/86 (108) 94 45 01/12/25 19:15 100.4 212.7 01/12/25 18:00 Mechanical Ventilator+ Total Intake and Output 01/11/25 01/11/25 01/12/25 15:00 23:00 07:00 Intake Total 2219.22 ml 2366.22 ml 2320.8 ml Output Total 1030 ml 4950 ml Balance 2219.22 ml 1336.22 ml -2629.2 ml medications Current Medications Medications Dose Ordered Sig/Sherron Route Start Time Stop Time Status Last Admin Dose Admin Pantoprazole Sodium 40 mg DAILY IV 12/18/24 10:00 01/12/25 08:11 40 MG Midazolam HCl 50 ml @ 1 mls/hr Q24H IV 12/17/24 17:00 01/12/25 11:59 15 MLS/HR Valproate Sodium 250 mg/Sodium Chloride 52.5 ml @ 52.5 mls/hr BID IV 12/17/24 22:00 01/12/25 22:05 52.5 MLS/HR Propofol 100 ml @ 2.37 mls/hr Q24H IV 12/17/24 18:15 01/12/25 20:30 23.7 MLS/HR Fentanyl Citrate 250 ml @ 2.5 mls/hr Q24H IV 12/17/24 21:15 01/12/25 17:25 40 MLS/HR Norepinephrine Bitartrate 250 ml @ 3.75 mls/hr Q24H IV 12/18/24 01:45 01/07/25 00:59 3.75 MLS/HR Diagnostic Test (Pha) 1 strip Q6HR 12/20/24 18:00 01/12/25 18:18 1 STRIP Insulin Human Regular FOLLOW SLIDING SCALE Q6HR SC 12/20/24 18:00 01/06/25 05:34 2 UNITS Dextrose 50 ml UD IV 12/20/24 14:15 12/20/24 17:47 50 ML Sodium Chloride 40 meq/Potassium Chloride 40 meq/ Potassium Phosphate 11 meq/ Calcium Gluconate 2.3 meq/Magnesium Sulfate 8 meq/ Multivitamins 10 ml/Chromium/ Copper/Manganese/ Zinc 1 ml/Amino Acids/Dextrose/ Purified Water 1,450.4462 ml @ 60 mls/hr [id number] IV 12/26/24 22:00 12/27/24 21:59 Cancel Ipratropium [employer] 0.5 mg Q6HR NEB 12/27/24 18:00 01/12/25 18:27 0.5 MG Levalbuterol HCl 1.25 mg Q6HR NEB 12/27/24 18:00 01/12/25 18:27 1.25 MG Amino Acids 0 ml @ 0 mls/hr PER PHARMACY IV 12/27/24 12:30 Sodium Chloride 10 ml QSHIFT@,22 IV 12/27/24 22:00 01/12/25 22:06 10 ML Artificial Tears 1 drop Q6HP PRN EACHEYE 12/29/24 23:45 01/06/25 09:00 1 DROP Meropenem 50 ml @ 17 mls/hr Q8HR IV 12/31/24 14:00 01/12/25 22:05 17 MLS/HR Ketamine HCl 50 mg [id number] PRN IV 01/04/25 15:00 01/05/25 07:00 Cancel Acetaminophen 1,000 mg [id number] PRN IV 01/05/25 04:00 01/08/25 21:45 1,000 MG Sodium Chloride 120 meq/Potassium Chloride 50 meq/ Potassium Acetate 50 meq/Calcium Gluconate 4.65 meq/Magnesium Sulfate 34 meq/ Multivitamins 10 ml/Chromium/ Copper/Manganese/ Zinc 1 ml/Amino Acids/Dextrose/ Purified Water 1,659.5 ml @ 68.108 mls/hr [id number] IV 01/09/25 22:00 01/10/25 21:59 Cancel Sodium Chloride 100 meq/Potassium Chloride 50 meq/ Calcium Gluconate 4.65 meq/ Magnesium Sulfate 34 meq/ Multivitamins 10 ml/Chromium/ Copper/Manganese/ Zinc 1 ml/Sodium Phosphate 20 meq/ Potassium Acetate 50 meq/Amino Acids/Dextrose/ Purified Water 1,659.5 ml @ 68.537 mls/hr [id number] IV 01/09/25 09:30 01/09/25 21:59 Cancel Ketamine HCl 500 mg/Sodium Chloride 500 ml @ 5.82 mls/hr Q24H IV 01/09/25 11:45 01/12/25 18:52 116.4 MLS/HR Micafungin Sodium 100 mg/Sodium Chloride 100 ml @ 100 mls/hr DAILY@0900 IV 01/12/25 09:00 01/12/25 08:12 100 MLS/HR Linezolid 300 ml @ 150 mls/hr Q12H IV 01/11/25 23:00 01/12/25 11:37 150 MLS/HR Heparin Sodium/ Dextrose 250 ml @ 25 mls/hr Q10H IV 01/11/25 15:30 01/12/25 20:30 25 MLS/HR Furosemide 40 mg BIDD IV 01/11/25 18:00 01/12/25 18:27 40 MG Sodium Chloride 160 meq/Potassium Chloride 80 meq/ Potassium Acetate 50 meq/Calcium Gluconate 2.3 meq/ Magnesium Sulfate 36 meq/ Multivitamins 10 ml/Chromium/ Copper/Manganese/ Zinc 1 ml/Amino Acids/Dextrose/ Purified Water 1,679.9462 ml @ 70 mls/hr Q24H IV 01/12/25 22:00 01/13/25 21:59 01/12/25 22:07 70 MLS/HR objective Gen.: Patient lying in bed in medical ICU. Sedated, on mechanical ventilator. S/p trach Head: Normocephalic, atraumatic. Eyes: PERRLA. Ears: Normal external anatomy. Throat: Orogastric tube in place. Neck: Trach in place. Chest: Transmitted breath sounds bilaterally. Decreased air entry bilaterally. No wheezing. Bibasilar crackles. Cardiovascular: Positive S1, positive S2. Regular rate and rhythm. Abdomen: Positive bowel sounds in all 4 quadrants. Soft, nontender, nondistended. : Navarrete in place. Normal external genitalia. Rectal: Deferred. Skin: Warm, dry. Intact. Extremities: 2+ radial pulses bilaterally. No lower extremity edema. Neuro: Sedated. laboratory and microbiology Laboratory Tests 01/12/25 07:45 Test 01/12/25 07:45 Range/Units Serum Glucose 98 74-106 mg/dL Assessment/Plan Impression: Acute hypoxic respiratory failure On mechanical ventilator S/p tracheostomy Fluid overload Sepsis S/p exploratory laparotomy Events: Remains on vent support On AC mode; RR 26, VT 400, PEEP 10, FiO2 45% Taper FiO2 as tolerated S/p trach Trach care per RT Sedated on Versed, Propofol On Ketamine Fentanyl drip for analgesia Continue antibiotics. Continue antifungal - micafungin Continue bronchodilators. Antiepileptic medication Labs and imaging reviewed. Rest of plan as noted below. Plan: s/p tracheostomy, on mechanical ventilator. Titrate FIO2 to keep O2 saturation above 90%. VAP bundle. Daily ABG and CXR while intubated Sedate for ventilator synchrony Trach care Continue antibiotics. F/u cultures. S/p colectomy. Follow up GI/Surgery recommendations Pressors as necessary for hemodynamic support. Titrate to keep MAP greater than 65 mmHg. Monitor renal function Monitor electrolytes. Supplement as necessary. Monitor ins and outs. K, mag at goal Maintain euvolemia. TPN for nutritional support GI prophylaxis. DVT prophylaxis. Prognosis: Poor given patient's multiple co-morbidities. Condition: Critical Rest of plan per hospitalist and other consultants. A total of 35 minutes of critical care time was spent reviewing the patient record, examining the patient, making a diagnostic and therapeutic plan, discussing this plan with the medical personnel, following up on diagnostic studies and following the patient for clinical stability excluding any and all procedures. At least 50% of this time was spent in direct, [id number] contact. Thank you, Dr. Brennan, for allowing me to participate in this patient's care. Further recommendations will depend on the patient's clinical course. Please do not hesitate to contact me if you have any questions or concerns. This medical document was created using an electronic medical record system with [employer] system. Although these documentations are being carefully reviewed, there may still be some phonetic and typographical changes. The errors are purely typographical, due to imperfection on the software program, and do not reflect any compromise in the patient's medical care. Dietary Evaluation Review Comments: 1. TF: Vital AF@50ml/hr (90g protein, 1440kcal 973 free water) meeting Protein needs 83%, energy needs 80%. 2. TPN per pharmacy meeting 75% of his needs if TF not feasible or NPO>7 days. 3. Diet as tolerated per HUMAN SERVICES CARE SPECIALIST eval when off Vent Expected Outcomes/Goals: Preventing catabolism Plan discussed with: Other (AISHA Meeks) Critical Care Time(min): 35 QUINN LANDON MD Jan 12, 2025 22:36
[2025-01-13] VITALS (105 sets, daily range): BP systolic 105–157; BP diastolic 62–100; PULSE 94–124; RESP 13–49; TEMP 97.7–100.6; O2SAT 82–100
[2025-01-13 01:48] LABS: Chloride 99 mmol/L (98-107); Potassium 4.1 mmol/L (3.5-5.1); Sodium 138 mmol/L (136-145)
[2025-01-13 01:49] LABS: Anion Gap 8 (5-15); Carbon Dioxide 31 mmol/L (20-31)
[2025-01-13 01:53] LABS: Calcium 8.5 mg/dL (8.7-10.4)
[2025-01-13 01:54] LABS: BUN/Creatinine Ratio 40.6 (10.0-20.0); Blood Urea Nitrogen 13 mg/dL (9-23)
[2025-01-13 01:55] LABS: Magnesium 1.9 mg/dL (1.6-2.6)
[2025-01-13 01:58] LABS: Glucose 120 mg/dL (74-106)
[2025-01-13 02:08] LABS: Base Excess 3.5 mmol/L (-2.0-3.0)
[2025-01-13 03:43] LABS: Hematocrit 25.0 % (41.0-53.0); Hemoglobin 8.5 g/dL (13.5-17.5); Mean Corpuscular Hemoglobin 29.8 pg (28.0-32.0); Mean Corpuscular Volume 87.4 fL (80.0-100.0); Nucleated Red Blood Cells % 0.1 %
[2025-01-13 03:58] LABS: Alanine Aminotransferase 19 U/L (7-40); Albumin 3.3 g/dL (3.2-4.8); Alkaline Phosphatase 232 U/L (46-116); Anion Gap 8 (5-15); BUN/Creatinine Ratio 34.2 (10.0-20.0); Bilirubin, Total 0.3 mg/dL (0.2-1.0); Blood Urea Nitrogen 13 mg/dL (9-23); Calcium 9.1 mg/dL (8.7-10.4); Carbon Dioxide 31 mmol/L (20-31); Chloride 100 mmol/L (98-107); Glucose 106 mg/dL (74-106); Magnesium 1.9 mg/dL (1.6-2.6); Potassium 4.1 mmol/L (3.5-5.1); Sodium 139 mmol/L (136-145); Total Protein 6.5 g/dL (5.7-8.2)
[2025-01-13 04:05] LABS: INR 1.14 (0.9-1.15); Partial Thromboplastin Time 66.3 SEC (24.5-34.5); Prothrombin Time 11.9 sec (9.3-11.8)
--- NOTE | 2025-01-13 05:40 | DVH ---
CHEST RADIOGRAPH Indication: Mechanical ventilation Technique: Single frontal view of the chest was obtained Comparison: XY CHEST XRAY 1 VIEW on DOS: 01/12/25, XY CHEST PORTABLE on DOS: 01/11/25, XY CHEST XRAY 1 VIEW on DOS: 01/10/25 IMPRESSION: Heart appears prominent size. Support lines and tubes appear unchanged in satisfactory in position. There is moderate to marked pulmonary edema with bilateral pleural effusions, pulmonary vascular cece estion, and perihilar airspace opacities. No pneumothorax. No significant interval change.
--- NOTE | 2025-01-13 14:40 | DVHPN2 ---
Subjective Patient's remains intubated and sedated. We will titrate the sedation, ketamine 1st. Reviewed: H&P Changes from previous H/P or p: No Changes General: Per HPI Eyes: No Pain, No Vision change, No Conjunctivae inflammation, No Eyelid inflammation, No Other, No Redness ENT: No Ear pain, No Ear discharge, No Nose pain, No Nose discharge, No Nose congestion, No Mouth pain, No Mouth swelling, No Throat pain, No Throat swelling, No Other Cardiovascular: No Chest Pain, No Palpitations, No Orthopnea, No Paroxysmal Noc. Dyspnea, No Edema, No Lt Headedness, No Other Respiratory: No Cough, No Dry, No Shortness of breath, No SOB with excertion, No Wheezing, No Hemoptysis, No Pleuritic Pain, No Sputum, No Other Gastrointestinal: Abdominal Pain Genitourinary: No Dysuria, No Frequency, No Incontinence, No Hematuria, No Retention, No Other Musculoskeletal: No other, No neck pain, No shoulder pain, No arm pain, No back pain, No hand pain, No leg pain, No foot pain Skin: No Rash, No Lesions, No Jaundice, No Bruising, No Other Objective Vitals Vital Signs Date Time Temp Pulse Resp B/P (MAP) Pulse Ox O2 Delivery O2 Flow Rate FiO2 01/13/25 14:26 105 28 149/91 (110) 97 30 01/13/25 12:30 99.0 210.2 01/13/25 12:00 Mechanical Ventilator+ Intake/Output Intake and Output 01/13/25 07:00 Intake Total 7734.7 ml Output Total 44971 ml Balance -2975.3 ml Intake Oral 0 ml IV Total 7734.7 ml Output Urine Total 12410 ml Stool Total 110 ml Gastric Drainage Total 515 ml Other 60 ml Exam HEENT pupils are reactive Neck is supple CV is S1-S2 regular rate and rhythm Respiratory diminished breath sounds bilateral lung bases GI positive bowel sound Extremity no edema [employer] intubated and sedated. General Appearance: Other HEENT: Atraumatic, Mucous membr. moist/pink Lungs: Clear to auscultation, Normal air movement Cardiovascular: Regular rate, Normal S1, Normal S2, No murmurs, Gallops, Rubs Abdomen: Normal bowel sounds, Soft Extremities: Normal pulses Skin: Intact Medications Current Medications Medications Dose Ordered Sig/Sherron Route Start Time Stop Time Status Last Admin Dose Admin Pantoprazole Sodium 40 mg DAILY IV 12/18/24 10:00 01/13/25 10:23 40 MG Midazolam HCl 50 ml @ 1 mls/hr Q24H IV 12/17/24 17:00 01/13/25 13:24 15 MLS/HR Valproate Sodium 250 mg/Sodium Chloride 52.5 ml @ 52.5 mls/hr BID IV 12/17/24 22:00 01/13/25 10:24 52.5 MLS/HR Propofol 100 ml @ 2.37 mls/hr Q24H IV 12/17/24 18:15 01/13/25 09:21 23.7 MLS/HR Fentanyl Citrate 250 ml @ 2.5 mls/hr Q24H IV 12/17/24 21:15 01/13/25 10:35 40 MLS/HR Norepinephrine Bitartrate 250 ml @ 3.75 mls/hr Q24H IV 12/18/24 01:45 01/07/25 00:59 3.75 MLS/HR Diagnostic Test (Pha) 1 strip Q6HR 12/20/24 18:00 01/13/25 12:08 1 STRIP Insulin Human Regular FOLLOW SLIDING SCALE Q6HR SC 12/20/24 18:00 01/06/25 05:34 2 UNITS Dextrose 50 ml UD IV 12/20/24 14:15 12/20/24 17:47 50 ML Sodium Chloride 40 meq/Potassium Chloride 40 meq/ Potassium Phosphate 11 meq/ Calcium Gluconate 2.3 meq/Magnesium Sulfate 8 meq/ Multivitamins 10 ml/Chromium/ Copper/Manganese/ Zinc 1 ml/Amino Acids/Dextrose/ Purified Water 1,450.4462 ml @ 60 mls/hr [id number] IV 12/26/24 22:00 12/27/24 21:59 Cancel Ipratropium Flynn 0.5 mg Q6HR NEB 12/27/24 18:00 01/13/25 11:41 0.5 MG Levalbuterol HCl 1.25 mg Q6HR NEB 12/27/24 18:00 01/13/25 11:41 1.25 MG Amino Acids 0 ml @ 0 mls/hr PER PHARMACY IV 12/27/24 12:30 Sodium Chloride 10 ml QSHIFT@, IV 12/27/24 22:00 01/13/25 10:23 10 ML Artificial Tears 1 drop Q6HP PRN EACHEYE 12/29/24 23:45 01/06/25 09:00 1 DROP Meropenem 50 ml @ 17 mls/hr Q8HR IV 12/31/24 14:00 01/13/25 14:07 17 MLS/HR Ketamine HCl 50 mg [id number] PRN IV 01/04/25 15:00 01/05/25 07:00 Cancel Acetaminophen 1,000 mg [id number] PRN IV 01/05/25 04:00 01/12/25 22:38 1,000 MG Sodium Chloride 120 meq/Potassium Chloride 50 meq/ Potassium Acetate 50 meq/Calcium Gluconate 4.65 meq/Magnesium Sulfate 34 meq/ Multivitamins 10 ml/Chromium/ Copper/Manganese/ Zinc 1 ml/Amino Acids/Dextrose/ Purified Water 1,659.5 ml @ 68.108 mls/hr [id number] IV 01/09/25 22:00 01/10/25 21:59 Cancel Sodium Chloride 100 meq/Potassium Chloride 50 meq/ Calcium Gluconate 4.65 meq/ Magnesium Sulfate 34 meq/ Multivitamins 10 ml/Chromium/ Copper/Manganese/ Zinc 1 ml/Sodium Phosphate 20 meq/ Potassium Acetate 50 meq/Amino Acids/Dextrose/ Purified Water 1,659.5 ml @ 68.537 mls/hr [id number] IV 01/09/25 09:30 01/09/25 21:59 Cancel Ketamine HCl 500 mg/Sodium Chloride 500 ml @ 5.82 mls/hr Q24H IV 01/09/25 11:45 01/13/25 14:05 110.58 MLS/HR Micafungin Sodium 100 mg/Sodium Chloride 100 ml @ 100 mls/hr DAILY@0900 IV 01/12/25 09:00 01/13/25 08:51 100 MLS/HR Linezolid 300 ml @ 150 mls/hr Q12H IV 01/11/25 23:00 01/13/25 11:21 150 MLS/HR Heparin Sodium/ Dextrose 250 ml @ 25 mls/hr Q10H IV 01/11/25 15:30 01/13/25 07:25 25 MLS/HR Furosemide 40 mg BIDD IV 01/11/25 18:00 01/13/25 05:45 40 MG Sodium Chloride 160 meq/Potassium Chloride 80 meq/ Potassium Acetate 50 meq/Calcium Gluconate 2.3 meq/ Magnesium Sulfate 36 meq/ Multivitamins 10 ml/Chromium/ Copper/Manganese/ Zinc 1 ml/Amino Acids/Dextrose/ Purified Water 1,679.9462 ml @ 70 mls/hr Q24H IV 01/12/25 22:00 01/13/25 21:59 01/12/25 22:07 70 MLS/HR Sodium Chloride 160 meq/Potassium Chloride 110 meq/ Potassium Acetate 20 meq/Magnesium Sulfate 36 meq/ Multivitamins 10 ml/Chromium/ Copper/Manganese/ Zinc 1 ml/Amino Acids/Dextrose 1,475 ml @ 61 mls/hr [id number] IV 01/13/25 22:00 01/14/25 21:59 Laboratory Results Laboratory Tests 01/13/25 02:50 Chemistry Test 01/13/25 01:30 01/13/25 02:50 Calcium Level 8.5 mg/dL (8.7-10.4) L 9.1 mg/dL (8.7-10.4) Magnesium Level 1.9 mg/dL (1.6-2.6) 1.9 mg/dL (1.6-2.6) Albumin 3.3 g/dL (3.2-4.8) Phosphorus Level 5.1 mg/dL (2.4-5.1) Total Protein 6.5 g/dL (5.7-8.2) Coagulation Test 01/13/25 02:50 Prothrombin Time 11.9 sec (9.3-11.8) H Prothrombin Time INR 1.14 (0.9-1.15) Activated Partial Thromboplast Time 66.3 SEC (24.5-34.5) H LFT Test 01/13/25 02:50 Alanine Aminotransferase (ALT) 19 U/L (7-40) Alkaline Phosphatase 232 U/L (46-116) H Aspartate Amino Transferase (AST) 31 U/L (13-40) Total Bilirubin 0.3 mg/dL (0.2-1.0) Urinalysis Test 12/18/24 08:16 Urine Color Dark-brown (Yellow) Urine Clarity Ex.turbid (Clear) Urine pH 6.0 (5.0-9.0) Urine Specific [place] 1.041 (1.001-1.035) Urine Protein 1+ (Negative) H Urine Ketones Negative (Negative) Urine Blood Trace /uL (Negative) H Urine Nitrite Negative (Negative) Urine Bilirubin Negative (Negative) Urine Urobilinogen Normal mg/dL (Negative) Urine Leukocyte Esterase Negative /uL (Negative) Urine RBC 30 /hpf (0 - 3) Urine WBC Clumps Present /hpf (None Seen) Urine Microscopic WBC 151 /HPF (0-3) H Urine Squamous Epithelial Cells None seen /hpf (<5) Urine Bacteria None seen /hpf (None Seen) Urine Mucus Few (None Seen) Urine Glucose Normal mg/dL (Normal) Blood Gas Results Test 01/13/25 02:00 Arterial Blood pH 7.439 (7.350-7.450) FiO2 % 45.0 Microbiology Microbiology Date/Time Source Procedure Growth Status 01/06/25 14:39 Blood Blood Culture - Final NO GROWTH AFTER 5 DAYS OF INCUBATION. Complete 01/06/25 14:12 Urine - [place] Urine Culture - Final Complete 01/06/25 13:53 Sputum Gram Stain - Final Complete 01/06/25 13:53 Sputum Respiratory Culture - Final Complete 01/05/25 08:15 Other Abscess Gram Stain - Final Complete 01/05/25 08:15 Other Abscess Anaerobic Culture - Final Complete 01/05/25 08:15 Aerobic Culture - Final Enterococcus faecium - VRE Complete 01/05/25 08:02 Peritoneal Fluid Gram Stain - Final Complete 01/05/25 08:02 Peritoneal Fluid Anaerobic Culture - Final Complete 01/05/25 08:02 Aerobic Culture - Final Enterococcus faecium - VRE Citrobacter freundii Vanc Resistant Enterococcus Complete Assessment/Plan Assessment/Plan 44-year-old male with a known history of epilepsy, gout, chronic pain presented to the hospital with a right lower quadrant abdominal pain found to have colitis with a later on found to have multiple abdominal abscesses secondary to abdominal visceral perforation status post surgical intervention device. 1. Septic shock secondary to colitis and peritonitis with suspected visceral perforation status post exploratory laparotomy with the lysis of adhesions and removal of intraperitoneal fibrinous adhesions which was covering the entire peritoneal cavity on12/27, status post Exploratory laparotomy, extensive lysis of adhesions, transverse colostomy and mucous fistula, abdominal lavage, evacuation of abdominal abscesses, repair of sigmoid defect.7 , 2. Sigmoid colon perforation with a peritonitis and colitis 3. Septic shock 4. Acute hypoxic respiratory failure requiring intubation currently on ventilator support status post tracheostomy on01/06 5. Colitis status post colonoscopy12/26 6. Leukocytosis, improving 7. Thrombocytosis likely reactive secondary to underlying sepsis -continue broad-spectrum IV antibiotics, follow up General surgery follow up Pulmonary recommendations patient remains critical , prognosis remain guarded. -titrate sedation. Plan discussed with: Other Date of Service: Jan 13, 2025 Billing Provider: CRISTIANE CAMPBELL MD Common Visit Codes: [id number] INP/OBS CARE(HIGH) CRISTIANE CAMPBELL MD Jan 13, 2025 14:40
[2025-01-13] MEDS: SODIUM CHL 0.9% IV SCH (18:30)
[2025-01-13] MEDS: KETAMINE IV SCH (18:30)
[2025-01-13] MEDS: TPN PER PHARMACY IV NR (21:57)
--- NOTE | 2025-01-13 23:13 | DVHPN2 ---
Progress Note - Dictate Date Seen: Jan 13, 2025 Has the PT tested + for MRSA If YES, has PT been informed?: No Medical Necessity Reason Pt with a Central, PICC or Fol: Yes The following are medically ne: Navarrete Catheter Reason for navarrete catheter: Strict I&O Subjective Patient seen and examined at bedside. Sedated, on mechanical ventilator. S/p trach Overnight events reviewed. vital signs Vital Sign Date Time Temp Pulse Resp B/P (MAP) Pulse Ox O2 Delivery O2 Flow Rate FiO2 01/13/25 22:37 126/68 01/13/25 22:15 104 26 97 30 01/13/25 22:00 Mechanical Ventilator+ 01/13/25 22:00 99.3 99.3 Total Intake and Output 01/12/25 01/12/25 01/13/25 15:00 23:00 07:00 Intake Total 2766.6 ml 2244.8 ml 2723.3 ml Output Total 3545 ml 7165 ml Balance 2766.6 ml -1300.2 ml -4441.7 ml medications Current Medications Medications Dose Ordered Sig/Sherron Route Start Time Stop Time Status Last Admin Dose Admin Pantoprazole Sodium 40 mg DAILY IV 12/18/24 10:00 01/13/25 10:23 40 MG Midazolam HCl 50 ml @ 1 mls/hr Q24H IV 12/17/24 17:00 01/13/25 22:28 15 MLS/HR Valproate Sodium 250 mg/Sodium Chloride 52.5 ml @ 52.5 mls/hr BID IV 12/17/24 22:00 01/13/25 21:55 52.5 MLS/HR Propofol 100 ml @ 2.37 mls/hr Q24H IV 12/17/24 18:15 01/13/25 22:29 23.7 MLS/HR Fentanyl Citrate 250 ml @ 2.5 mls/hr Q24H IV 12/17/24 21:15 01/13/25 22:37 40 MLS/HR Norepinephrine Bitartrate 250 ml @ 3.75 mls/hr Q24H IV 12/18/24 01:45 01/07/25 00:59 3.75 MLS/HR Diagnostic Test (Pha) 1 strip Q6HR 12/20/24 18:00 01/13/25 18:22 1 STRIP Insulin Human Regular FOLLOW SLIDING SCALE Q6HR SC 12/20/24 18:00 01/06/25 05:34 2 UNITS Dextrose 50 ml UD IV 12/20/24 14:15 12/20/24 17:47 50 ML Sodium Chloride 40 meq/Potassium Chloride 40 meq/ Potassium Phosphate 11 meq/ Calcium Gluconate 2.3 meq/Magnesium Sulfate 8 meq/ Multivitamins 10 ml/Chromium/ Copper/Manganese/ Zinc 1 ml/Amino Acids/Dextrose/ Purified Water 1,450.4462 ml @ 60 mls/hr [id number] IV 12/26/24 22:00 12/27/24 21:59 Cancel Ipratropium [place] 0.5 mg Q6HR NEB 12/27/24 18:00 01/13/25 18:05 0.5 MG Levalbuterol HCl 1.25 mg Q6HR NEB 12/27/24 18:00 01/13/25 18:05 1.25 MG Amino Acids 0 ml @ 0 mls/hr PER PHARMACY IV 12/27/24 12:30 Sodium Chloride 10 ml QSHIFT@10,22 IV 12/27/24 22:00 01/13/25 21:55 10 ML Artificial Tears 1 drop Q6HP PRN EACHEYE 12/29/24 23:45 01/06/25 09:00 1 DROP Meropenem 50 ml @ 17 mls/hr Q8HR IV 12/31/24 14:00 01/13/25 22:55 17 MLS/HR Ketamine HCl 50 mg [id number] PRN IV 01/04/25 15:00 01/05/25 07:00 Cancel Acetaminophen 1,000 mg [id number] PRN IV 01/05/25 04:00 01/12/25 22:38 1,000 MG Sodium Chloride 120 meq/Potassium Chloride 50 meq/ Potassium Acetate 50 meq/Calcium Gluconate 4.65 meq/Magnesium Sulfate 34 meq/ Multivitamins 10 ml/Chromium/ Copper/Manganese/ Zinc 1 ml/Amino Acids/Dextrose/ Purified Water 1,659.5 ml @ 68.108 mls/hr [id number] IV 01/09/25 22:00 01/10/25 21:59 Cancel Sodium Chloride 100 meq/Potassium Chloride 50 meq/ Calcium Gluconate 4.65 meq/ Magnesium Sulfate 34 meq/ Multivitamins 10 ml/Chromium/ Copper/Manganese/ Zinc 1 ml/Sodium Phosphate 20 meq/ Potassium Acetate 50 meq/Amino Acids/Dextrose/ Purified Water 1,659.5 ml @ 68.537 mls/hr [id number] IV 01/09/25 09:30 01/09/25 21:59 Cancel Micafungin Sodium 100 mg/Sodium Chloride 100 ml @ 100 mls/hr DAILY@0900 IV 01/12/25 09:00 01/13/25 08:51 100 MLS/HR Linezolid 300 ml @ 150 mls/hr Q12H IV 01/11/25 23:00 01/13/25 11:21 150 MLS/HR Heparin Sodium/ Dextrose 250 ml @ 25 mls/hr Q10H IV 01/11/25 15:30 01/13/25 17:05 25 MLS/HR Furosemide 40 mg BIDD IV 01/11/25 18:00 01/13/25 18:22 40 MG Sodium Chloride 160 meq/Potassium Chloride 110 meq/ Potassium Acetate 20 meq/Magnesium Sulfate 36 meq/ Multivitamins 10 ml/Chromium/ Copper/Manganese/ Zinc 1 ml/Amino Acids/Dextrose 1,475 ml @ 61 mls/hr [id number] IV 01/13/25 22:00 01/14/25 21:59 01/13/25 21:57 61 MLS/HR Ketamine HCl 1000 mg/Sodium Chloride 500 ml @ 2.91 mls/hr Q24H IV 01/13/25 18:30 01/13/25 18:30 49.47 MLS/HR objective Gen.: Patient lying in bed in medical ICU. Sedated, on mechanical ventilator. S/p trach Head: Normocephalic, atraumatic. Eyes: PERRLA. Ears: Normal external anatomy. Throat: Orogastric tube in place. Neck: Trach in place. Chest: Transmitted breath sounds bilaterally. Decreased air entry bilaterally. No wheezing. Bibasilar crackles. Cardiovascular: Positive S1, positive S2. Regular rate and rhythm. Abdomen: Positive bowel sounds in all 4 quadrants. Soft, nontender, nondistended. : Navarrete in place. Normal external genitalia. Rectal: Deferred. Skin: Warm, dry. Intact. Extremities: 2+ radial pulses bilaterally. No lower extremity edema. Neuro: Sedated. laboratory and microbiology Laboratory Tests 01/13/25 02:50 Test 01/13/25 02:50 Range/Units Serum Glucose 106 74-106 mg/dL Assessment/Plan Impression: Acute hypoxic respiratory failure On mechanical ventilator S/p tracheostomy Fluid overload Sepsis S/p exploratory laparotomy Events: Remains on vent support On AC mode; RR 26, VT 400, PEEP 10, FiO2 45% Taper FiO2 as tolerated S/p trach Trach care per RT Wound care Pt requires multiple sedatives for vent synchrony Sedated on Versed, Propofol On Ketamine Fentanyl drip for analgesia On heparin drip. Continue antibiotics. Continue antifungal - micafungin Continue bronchodilators. TPN for nutritional support Antiepileptic medication ABG reviewed, compensated CXR reveals moderate to marked pulmonary edema with bilateral pleural effusions, pulmonary vascular congestion, and perihilar airspace opacities. No pneumothorax. Labs and imaging reviewed. Rest of plan as noted below. Plan: s/p tracheostomy, on mechanical ventilator. Titrate FIO2 to keep O2 saturation above 90%. VAP bundle. Daily ABG and CXR while intubated Sedate for ventilator synchrony Trach care Continue antibiotics. F/u cultures. S/p colectomy. Follow up GI/Surgery recommendations Pressors as necessary for hemodynamic support. Titrate to keep MAP greater than 65 mmHg. Monitor renal function Monitor electrolytes. Supplement as necessary. Monitor ins and outs. K, mag at goal Maintain euvolemia. TPN for nutritional support GI prophylaxis. DVT prophylaxis. Prognosis: Poor given patient's multiple co-morbidities. Condition: Critical Rest of plan per hospitalist and other consultants. A total of 35 minutes of critical care time was spent reviewing the patient record, examining the patient, making a diagnostic and therapeutic plan, discussing this plan with the medical personnel, following up on diagnostic studies and following the patient for clinical stability excluding any and all procedures. At least 50% of this time was spent in direct, [id number] contact. Thank you, Dr. Brennan, for allowing me to participate in this patient's care. Further recommendations will depend on the patient's clinical course. Please do not hesitate to contact me if you have any questions or concerns. This medical document was created using an electronic medical record system with [employer] dictation system. Although these documentations are being carefully reviewed, there may still be some phonetic and typographical changes. The errors are purely typographical, due to imperfection on the software program, and do not reflect any compromise in the patient's medical care. Dietary Evaluation Review Comments: 1. TF: Vital AF@50ml/hr (90g protein, 1440kcal 973 free water) meeting Protein needs 83%, energy needs 80%. 2. TPN per pharmacy meeting 75% of his needs if TF not feasible or NPO>7 days. 3. Diet as tolerated per [employer] eval when off Vent Expected Outcomes/Goals: Preventing catabolism Plan discussed with: Other (AISHA Marroquin) Critical Care Time(min): 35 QUINN LANDON MD Jan 13, 2025 23:13
[2025-01-14] VITALS (107 sets, daily range): BP systolic 104–161; BP diastolic 60–99; PULSE 93–123; RESP 13–38; TEMP 96.6–99.9; O2SAT 94–100
[2025-01-14 04:02] LABS: Hematocrit 25.6 % (41.0-53.0); Hemoglobin 8.6 g/dL (13.5-17.5); Mean Corpuscular Hemoglobin 29.4 pg (28.0-32.0); Mean Corpuscular Volume 87.2 fL (80.0-100.0); Nucleated Red Blood Cells % 0.1 %
[2025-01-14 04:20] LABS: Alanine Aminotransferase 20 U/L (7-40); BUN/Creatinine Ratio 45.7 (10.0-20.0); Blood Urea Nitrogen 16 mg/dL (9-23); Chloride 99 mmol/L (98-107); Magnesium 2.0 mg/dL (1.6-2.6); Potassium 3.8 mmol/L (3.5-5.1); Sodium 138 mmol/L (136-145); Total Protein 6.6 g/dL (5.7-8.2)
[2025-01-14 04:21] LABS: Albumin 3.2 g/dL (3.2-4.8); Bilirubin, Total 0.3 mg/dL (0.2-1.0)
[2025-01-14 04:37] LABS: Glucose 110 mg/dL (74-106)
[2025-01-14 04:38] LABS: Alkaline Phosphatase 272 U/L (46-116); Calcium 8.4 mg/dL (8.7-10.4)
[2025-01-14 04:45] LABS: Anion Gap 9 (5-15); Carbon Dioxide 30 mmol/L (20-31)
[2025-01-14 04:57] LABS: INR 1.14 (0.9-1.15); Partial Thromboplastin Time 63.4 SEC (24.5-34.5); Prothrombin Time 11.9 sec (9.3-11.8)
--- NOTE | 2025-01-14 05:23 | DVH ---
CHEST RADIOGRAPH Indication: PATIENT INTUBATED Technique: Single frontal view of the chest was obtained COMPARISON: XY CHEST PORTABLE on DOS: 01/13/25, XY CHEST XRAY 1 VIEW on DOS: 01/12/25, XY CHEST PORTABL E on DOS: 01/11/25, XY CHEST XRAY 1 VIEW on DOS: 01/10/25, XY CHEST XRAY 1 VIEW on DOS: 01/09/25 FINDINGS: Lines and Tubes: Unchanged. Lungs: Slight interval improvement in diffuse right hemithoracic pulmonary infiltrate with persistent bibasilar opacity and small left pleural effusion. No pneumothorax. Cardiomediastinal contours: Unremarkable Bones: Unremarkable IMPRESSION: 1. Slight interval improvement in extensive right hemithoracic pulmonary airspace disease with persis tent diffuse bilateral infiltrate and bibasilar opacity. 2. Small left pleural effusion. 3. Lines and tubes unchanged.
[2025-01-14 08:44] LABS: Base Excess 3.2 mmol/L (-2.0-3.0)
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
[2025-01-14] MEDS: fentaNYL Drip 2500mCg/250mlNS 250 ML IV SCH (12:45)
--- NOTE | 2025-01-14 13:37 | DVH ---
Indication: F/O OBSTRUCTION, ABD SEPSIS Technique: CT axial images of the abdomen and pelvis are obtained without contrast. Coronal and sagit chico reformats were obtained. Radiation Dose Information: CTDI volume is 0.07 mGy. Dose-length product is 1342.94 mGy*cm Comparison: None FINDINGS: There is limited interpretation of the abdomen and pelvis without administration of intravenous contr ast. Bibasilar pulmonary airspace consolidation/ground-glass disease . Small to moderate bilateral pleura l effusions. Adrenal glands, spleen, pancreas and liver unremarkable in shape. No CT evidence for cholelithiasis. No hydronephrosis /nephrolithiasis. Stomach partially distended. NG tube projects towards the pylorus/proximal duodenum. Left abdominal colostomy. Right abdominal colostomy. Contrast is seen extending through both ostomies into the ostomy pouch. The small bowel loops are moderately distended. Appendix is normal in caliber . Rectal catheter. Abdominal aortam normal in caliber aortic/retroperitoneal lymph nodes measuring up to 1.8 cm. Presacral edema. Bladder decompressed by Martinez catheter. Mesenteric edema. Small amount of ascites fluid. No extraluminal contrast seen. Encapsulated fluid collection surrounding the spleen extending to the left paracolic gutter measuring 12.8 x 1.9 cm Soft tissue edema / anasarca. Left femur intramedullary daily. [id number] thoracolumbar degenerative disc disease. There is a right abdominal drainage catheter which terminates in the region of the left paracolic gut ter. There is a left abdominal drainage catheter terminating in the left anterior abdomen. IMPRESSION: Limited evaluation without contrast. Contrast seen extending to both ostomy site. No extraluminal contrast seen. Mesenteric edema, soft tissue edema/ anasarca, small amount of ascites fluid. Retroperitoneal lymphadenopathy. Encapsulated collection in the perisplenic space extending to the left paracolic gutter measuring 12. 8 x 1.9 cm. Bilateral airspace consolidation and ground-glass disease, likely secondary to infectious / inflammat ory etiology. Follow-up to resolution. Small to moderate bilateral pleural effusions. Retroperitoneal lymphadenopathy. Other findings as described.
[2025-01-14] MEDS ORDERED: SODIUM CHL 0.9% IV SCH (15:00)
[2025-01-14] MEDS ORDERED: KETAMINE IV SCH (15:00)
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
[2025-01-14] MEDS: TPN PER PHARMACY IV NR (21:40)
--- NOTE | 2025-01-14 22:30 | DVHPN2 ---
Progress Note - Dictate Date Seen: Jan 14, 2025 Has the PT tested + for MRSA If YES, has PT been informed?: No Medical Necessity Reason Pt with a Central, PICC or Fol: Yes The following are medically ne: Navarrete Catheter Reason for navarrete catheter: Strict I&O Subjective Post op Day # 9 s/p Exploratory laparotomy, extensive lysis of adhesions, transverse colostomy and mucus fistula, abdominal lavage, evacuation of abdominal abscesses, repair of sigmoid defect. Postop day 9. S/P tracheostomy Hemoglobin stable at 8.6 after 2 units PRBC No active GI bleeding reported Leukocytosis improving; thrombocytosis improving Patient is on multiple antibiotics Patient is off pressors Patient is on max sedation, still awake, ketamine drip started, patient had stool in the colostomy, has wound vac, his right arm was more swollen and red, arm US showed extensive DVT, heparin started,; PT INR therapeutic vital signs Vital Sign Date Time Temp Pulse Resp B/P (MAP) Pulse Ox O2 Delivery O2 Flow Rate FiO2 01/14/25 22:21 152/97 01/14/25 20:30 98.1 114 32 98 208.6 01/14/25 20:20 30 01/14/25 20:00 Mechanical Ventilator+ Total Intake and Output 01/13/25 01/13/25 01/14/25 15:00 23:00 07:00 Intake Total 2561.40 ml 1700.80 ml 1661.36 ml Output Total 4400 ml 3050 ml Balance 2561.40 ml -2699.20 ml -1388.64 ml medications Current Medications Medications Dose Ordered Sig/Sherron Route Start Time Stop Time Status Last Admin Dose Admin Pantoprazole Sodium 40 mg DAILY IV 12/18/24 10:00 01/14/25 09:37 40 MG Midazolam HCl 50 ml @ 1 mls/hr Q24H IV 12/17/24 17:00 01/14/25 21:36 15 MLS/HR Valproate Sodium 250 mg/Sodium Chloride 52.5 ml @ 52.5 mls/hr BID IV 12/17/24 22:00 01/14/25 21:37 52.5 MLS/HR Propofol 100 ml @ 2.37 mls/hr Q24H IV 12/17/24 18:15 01/14/25 22:21 23.7 MLS/HR Norepinephrine Bitartrate 250 ml @ 3.75 mls/hr Q24H IV 12/18/24 01:45 01/07/25 00:59 3.75 MLS/HR Diagnostic Test (Pha) 1 strip Q6HR 12/20/24 18:00 01/14/25 18:22 1 STRIP Insulin Human Regular FOLLOW SLIDING SCALE Q6HR SC 12/20/24 18:00 01/06/25 05:34 2 UNITS Dextrose 50 ml UD IV 12/20/24 14:15 12/20/24 17:47 50 ML Sodium Chloride 40 meq/Potassium Chloride 40 meq/ Potassium Phosphate 11 meq/ Calcium Gluconate 2.3 meq/Magnesium Sulfate 8 meq/ Multivitamins 10 ml/Chromium/ Copper/Manganese/ Zinc 1 ml/Amino Acids/Dextrose/ Purified Water 1,450.4462 ml @ 60 mls/hr [id number] IV 12/26/24 22:00 12/27/24 21:59 Cancel Ipratropium [place] 0.5 mg Q6HR NEB 12/27/24 18:00 01/14/25 18:59 0.5 MG Levalbuterol HCl 1.25 mg Q6HR NEB 12/27/24 18:00 01/14/25 18:59 1.25 MG Amino Acids 0 ml @ 0 mls/hr PER PHARMACY IV 12/27/24 12:30 Sodium Chloride 10 ml QSHIFT@10,22 IV 12/27/24 22:00 01/14/25 21:37 10 ML Artificial Tears 1 drop Q6HP PRN EACHEYE 12/29/24 23:45 01/06/25 09:00 1 DROP Meropenem 50 ml @ 17 mls/hr Q8HR IV 12/31/24 14:00 01/14/25 13:35 17 MLS/HR Ketamine HCl 50 mg [id number] PRN IV 01/04/25 15:00 01/05/25 07:00 Cancel Acetaminophen 1,000 mg [id number] PRN IV 01/05/25 04:00 01/12/25 22:38 1,000 MG Sodium Chloride 120 meq/Potassium Chloride 50 meq/ Potassium Acetate 50 meq/Calcium Gluconate 4.65 meq/Magnesium Sulfate 34 meq/ Multivitamins 10 ml/Chromium/ Copper/Manganese/ Zinc 1 ml/Amino Acids/Dextrose/ Purified Water 1,659.5 ml @ 68.108 mls/hr [id number] IV 01/09/25 22:00 01/10/25 21:59 Cancel Sodium Chloride 100 meq/Potassium Chloride 50 meq/ Calcium Gluconate 4.65 meq/ Magnesium Sulfate 34 meq/ Multivitamins 10 ml/Chromium/ Copper/Manganese/ Zinc 1 ml/Sodium Phosphate 20 meq/ Potassium Acetate 50 meq/Amino Acids/Dextrose/ Purified Water 1,659.5 ml @ 68.537 mls/hr [id number] IV 01/09/25 09:30 01/09/25 21:59 Cancel Micafungin Sodium 100 mg/Sodium Chloride 100 ml @ 100 mls/hr DAILY@0900 IV 01/12/25 09:00 01/14/25 08:42 100 MLS/HR Linezolid 300 ml @ 150 mls/hr Q12H IV 01/11/25 23:00 01/14/25 10:37 150 MLS/HR Heparin Sodium/ Dextrose 250 ml @ 25 mls/hr Q10H IV 01/11/25 15:30 01/14/25 13:35 25 MLS/HR Furosemide 40 mg BIDD IV 01/11/25 18:00 01/14/25 17:54 40 MG Ketamine HCl 1000 mg/Sodium Chloride 500 ml @ 2.91 mls/hr Q24H IV 01/13/25 18:30 01/14/25 05:44 49.47 MLS/HR Sodium Chloride 180 meq/Potassium Chloride 120 meq/ Potassium Acetate 20 meq/Calcium Gluconate 2.3 meq/ Magnesium Sulfate 36 meq/ Multivitamins 10 ml/Chromium/ Copper/Manganese/ Zinc 1 ml/Amino Acids/Dextrose/ Purified Water 1,689.9462 ml @ 70 mls/hr Q24H9M IV 01/14/25 22:00 01/15/25 21:59 01/14/25 21:40 70 MLS/HR Fentanyl Citrate 250 ml @ 2.5 mls/hr Q24H IV 01/14/25 12:45 01/14/25 16:59 40 MLS/HR objective General Appearance: On ventilator, FiO2 30% HEENT: Atraumatic, PERRLA, EOMI, Mucous membr. moist/pink Respiratory: Normal air movement, Other (On ventilator) Cardiovascular: Regular rate, Normal S1, Normal S2, No murmurs Abdominal: Binder in place, soft, distended, no bowel sounds; minimal colostomy liquid output Extremities: No clubbing, No cyanosis, No edema, Normal pulses, No tenderness/swelling Skin: No rashes, No breakdown, No significant lesion Neuro: Normal speech, Normal tone, Sensation intact, Cranial nerves 3-12 NL, Reflexes 2+, Other (Generalized weakness) Psych/Mental Status: Mood NL, Other (Altered mental status) Rectal exam, normal tone no obstipation rectal mass or obstruction noted and no stool in the rectum laboratory and microbiology Laboratory Tests 01/14/25 03:21 Test 01/14/25 03:21 Range/Units Serum Glucose 110 H 74-106 mg/dL CT SCAN ABD PELVIS Contrast seen extending to both ostomy site. No extraluminal contrast seen. Mesenteric edema, soft tissue edema/ anasarca, small amount of ascites fluid. Retroperitoneal lymphadenopathy. Encapsulated collection in the perisplenic space extending to the left paracolic gutter measuring 12.8 x 1.9 cm. Bilateral airspace consolidation and ground-glass disease, likely secondary to infectious / inflammatory etiology. Follow-up to resolution. Small to moderate bilateral pleural effusions. Retroperitoneal lymphadenopathy. Problems(with codes): (1) Sigmoid colon injury (2) Generalized weakness (3) Leukocytosis, unspecified (4) Abnormal finding on GI tract imaging (5) Leukocytosis (6) Sepsis, unspecified organism (7) Peritonitis (8) Septicemia due to vancomycin resistant Enterococcus (VRE) species Prognosis PLAN Consider starting enteral tube feedings Small linear perisplenic fluid collection ? hematoma; postoperative fluid collection; too small for drainage? Continue IV ABX ; supportive care ? Wean off sedation Dietary Evaluation Review Comments: 1. TF: Vital AF@50ml/hr (90g protein, 1440kcal 973 free water) meeting Protein needs 83%, energy needs 80%. 2. TPN per pharmacy meeting 75% of his needs if TF not feasible or NPO>7 days. 3. Diet as tolerated per VICE PRESIDENT OF HUMAN RESOURCES eval when off Vent Expected Outcomes/Goals: Preventing catabolism Plan discussed with: Other (Dr Umanzor) MAO COLEMAN MD Jan 14, 2025 22:30
[2025-01-15] VITALS (104 sets, daily range): BP systolic 91–161; BP diastolic 50–97; PULSE 98–125; RESP 14–31; TEMP 98.1–99.7; O2SAT 95–100
[2025-01-15 03:42] LABS: Hemoglobin 8.6 g/dL (13.5-17.5); Nucleated Red Blood Cells % 0.0 %
[2025-01-15 03:48] LABS: Hematocrit 25.5 % (41.0-53.0); Mean Corpuscular Hemoglobin 29.8 pg (28.0-32.0); Mean Corpuscular Volume 87.7 fL (80.0-100.0)
[2025-01-15 03:59] LABS: INR 1.15 (0.9-1.15); Prothrombin Time 12.0 sec (9.3-11.8)
[2025-01-15 04:05] LABS: Alanine Aminotransferase 40 U/L (7-40); Anion Gap 8 (5-15); Carbon Dioxide 30 mmol/L (20-31); Chloride 99 mmol/L (98-107); Potassium 3.7 mmol/L (3.5-5.1); Sodium 137 mmol/L (136-145)
[2025-01-15 04:06] LABS: Partial Thromboplastin Time 75.1 SEC (24.5-34.5)
[2025-01-15 04:07] LABS: BUN/Creatinine Ratio 40.0 (10.0-20.0); Blood Urea Nitrogen 14 mg/dL (9-23)
[2025-01-15 04:08] LABS: Magnesium 1.9 mg/dL (1.6-2.6); Total Protein 6.7 g/dL (5.7-8.2)
[2025-01-15 04:09] LABS: Albumin 3.3 g/dL (3.2-4.8)
[2025-01-15 04:21] LABS: Glucose 116 mg/dL (74-106)
[2025-01-15 04:22] LABS: Alkaline Phosphatase 440 U/L (46-116); Bilirubin, Total 0.3 mg/dL (0.2-1.0); Calcium 8.5 mg/dL (8.7-10.4)
--- NOTE | 2025-01-15 06:54 | DVH ---
CHEST RADIOGRAPH Indication: ARDS Technique: Single frontal view of the chest was obtained Comparison: XY CHEST PORTABLE on DOS: 01/14/25 FINDINGS: Lines and Tubes: There is right PICC with its tip terminating in the superior vena cava. Tracheostom y tube in place. The enteric tube courses below the left hemidiaphragm and the tip extends outside t he field of view. Lungs: Bilateral airspace disease. Pleura: No effusion. No pneumothorax. Cardiomediastinal contours: Unremarkable Bones: No acute osseous abnormality. IMPRESSION: 1. Appropriate position of the support lines and tubes. 2. Bilateral airspace disease.
[2025-01-15 07:53] LABS: Base Excess 3.1 mmol/L (-2.0-3.0)
[2025-01-15] MEDS: POTASSIUM CHL 20MEQ/100ML 100 ML IV SCH (10:44)
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
[2025-01-15 16:29] LABS: INR 1.17 (0.9-1.15); Partial Thromboplastin Time 52.4 SEC (24.5-34.5); Prothrombin Time 12.2 sec (9.3-11.8)
--- NOTE | 2025-01-15 16:48 | DVHPN2 ---
Progress Note Date Seen: Jan 15, 2025 Resident Creating Document: SOPHIE LANDEROS RESIDENT Has the PT tested + for MRSA If YES, has PT been informed?: No Medical Necessity Reason Pt with a Central, PICC or Fol: Yes The following are medically ne: Navarrete Catheter Reason for navarrete catheter: Strict I&O Subjective Review of Systems 01/15/25 he patient is a 44-year-old male with a history of epilepsy, chronic pain, and severe constipation, currently postoperative day 9 after exploratory laparotomy, extensive adhesiolysis, creation of transverse colostomy with mucus fistula, abdominal lavage, and drainage of multiple abscesses. He also underwent tracheostomy on 01/05 for prolonged ventilation. Cultures have shown VRE and Citrobacter freundii, for which he is on meropenem, linezolid, and micafungin. Clinical course updates: * Remains intubated and sedated (on ketamine, propofol, midazolam, fentanyl). * NG tube output: 800 mL of bilious, high gastric residuals over 24 hours. * Colostomy output: minimal liquid stool, ~200 mL. * Feeding: Enteral tube feeds withheld due to high gastric residuals and risk of intolerance; patient maintained on TPN. * Drainage: SHIRLENE drains with serosanguinous output, no purulence. * Vitals: Stable on ventilator, FiO2 30%. * Pain: Unable to assess due to sedation. * Family communication: Family has been extensively counseled on prognosis, surgical findings, and ongoing management. Review of Systems ROS limited due to sedation. * GI: High NG output, low colostomy output, no hematemesis or overt GI bleeding. * Respiratory: Ventilator dependent. * Cardiac: No new issues reported. * Neuro: Sedated; not assessable. * Other: Noncontributory as per nursing report. Objective vital signs Vital Sign Date Time Temp Pulse Resp B/P (MAP) Pulse Ox O2 Delivery O2 Flow Rate FiO2 01/15/25 15:11 98/56 01/15/25 14:58 98 26 100 30 01/15/25 12:00 Mechanical Ventilator+ 01/15/25 12:00 98.2 208.8 Total Intake and Output 01/14/25 01/14/25 01/15/25 15:00 23:00 07:00 Intake Total 2290.585 ml 1703.720 ml 1871.720 ml Output Total 4395 ml 4950 ml Balance 2290.585 ml -2691.280 ml -3078.280 ml medications Current Medications Medications Dose Ordered Sig/Sherron Route Start Time Stop Time Status Last Admin Dose Admin Pantoprazole Sodium 40 mg DAILY IV 12/18/24 10:00 01/15/25 10:22 40 MG Midazolam HCl 50 ml @ 1 mls/hr Q24H IV 12/17/24 17:00 01/15/25 15:11 15 MLS/HR Valproate Sodium 250 mg/Sodium Chloride 52.5 ml @ 52.5 mls/hr BID IV 12/17/24 22:00 01/15/25 10:23 52.5 MLS/HR Propofol 100 ml @ 2.37 mls/hr Q24H IV 12/17/24 18:15 01/15/25 15:10 23.7 MLS/HR Norepinephrine Bitartrate 250 ml @ 3.75 mls/hr Q24H IV 12/18/24 01:45 01/07/25 00:59 3.75 MLS/HR Diagnostic Test (Pha) 1 strip Q6HR 12/20/24 18:00 01/15/25 11:48 1 STRIP Insulin Human Regular FOLLOW SLIDING SCALE Q6HR SC 12/20/24 18:00 01/06/25 05:34 2 UNITS Dextrose 50 ml UD IV 12/20/24 14:15 12/20/24 17:47 50 ML Sodium Chloride 40 meq/Potassium Chloride 40 meq/ Potassium Phosphate 11 meq/ Calcium Gluconate 2.3 meq/Magnesium Sulfate 8 meq/ Multivitamins 10 ml/Chromium/ Copper/Manganese/ Zinc 1 ml/Amino Acids/Dextrose/ Purified Water 1,450.4462 ml @ 60 mls/hr [id number] IV 12/26/24 22:00 12/27/24 21:59 Cancel Ipratropium [place] 0.5 mg Q6HR NEB 12/27/24 18:00 01/15/25 12:39 0.5 MG Levalbuterol HCl 1.25 mg Q6HR NEB 12/27/24 18:00 01/15/25 12:39 1.25 MG Amino Acids 0 ml @ 0 mls/hr PER PHARMACY IV 12/27/24 12:30 Sodium Chloride 10 ml QSHIFT@10,22 IV 12/27/24 22:00 01/15/25 10:23 10 ML Artificial Tears 1 drop Q6HP PRN EACHEYE 12/29/24 23:45 01/06/25 09:00 1 DROP Meropenem 50 ml @ 17 mls/hr Q8HR IV 12/31/24 14:00 01/15/25 14:53 17 MLS/HR Ketamine HCl 50 mg [id number] PRN IV 01/04/25 15:00 01/05/25 07:00 Cancel Acetaminophen 1,000 mg [id number] PRN IV 01/05/25 04:00 01/12/25 22:38 1,000 MG Sodium Chloride 120 meq/Potassium Chloride 50 meq/ Potassium Acetate 50 meq/Calcium Gluconate 4.65 meq/Magnesium Sulfate 34 meq/ Multivitamins 10 ml/Chromium/ Copper/Manganese/ Zinc 1 ml/Amino Acids/Dextrose/ Purified Water 1,659.5 ml @ 68.108 mls/hr [id number] IV 01/09/25 22:00 01/10/25 21:59 Cancel Sodium Chloride 100 meq/Potassium Chloride 50 meq/ Calcium Gluconate 4.65 meq/ Magnesium Sulfate 34 meq/ Multivitamins 10 ml/Chromium/ Copper/Manganese/ Zinc 1 ml/Sodium Phosphate 20 meq/ Potassium Acetate 50 meq/Amino Acids/Dextrose/ Purified Water 1,659.5 ml @ 68.537 mls/hr [id number] IV 01/09/25 09:30 01/09/25 21:59 Cancel Micafungin Sodium 100 mg/Sodium Chloride 100 ml @ 100 mls/hr DAILY@0900 IV 01/12/25 09:00 01/15/25 08:21 100 MLS/HR Linezolid 300 ml @ 150 mls/hr Q12H IV 01/11/25 23:00 01/15/25 11:30 150 MLS/HR Heparin Sodium/ Dextrose 250 ml @ 25 mls/hr Q10H IV 01/11/25 15:30 01/15/25 09:20 25 MLS/HR Furosemide 40 mg BIDD IV 01/11/25 18:00 01/15/25 05:38 40 MG Ketamine HCl 1000 mg/Sodium Chloride 500 ml @ 2.91 mls/hr Q24H IV 01/13/25 18:30 01/15/25 12:22 47.957 MLS/HR Sodium Chloride 180 meq/Potassium Chloride 120 meq/ Potassium Acetate 20 meq/Calcium Gluconate 2.3 meq/ Magnesium Sulfate 36 meq/ Multivitamins 10 ml/Chromium/ Copper/Manganese/ Zinc 1 ml/Amino Acids/Dextrose/ Purified Water 1,689.9462 ml @ 70 mls/hr [id number] IV 01/14/25 22:00 01/15/25 21:59 01/14/25 21:40 70 MLS/HR Fentanyl Citrate 250 ml @ 2.5 mls/hr Q24H IV 01/14/25 12:45 01/15/25 10:42 4 MLS/HR Sodium Chloride 200 meq/Potassium Chloride 140 meq/ Calcium Gluconate 2.3 meq/Magnesium Sulfate 40 meq/ Multivitamins 10 ml/Chromium/ Copper/Manganese/ Zinc 1 ml/Amino Acids/Dextrose/ Purified Water 1,695.9462 ml @ 71 mls/hr [id number] IV 01/15/25 22:00 01/16/25 21:59 Examination * General: Sedated, intubated, ventilated, FiO2 30%. * HEENT: PERRLA, mucous membranes moist. * Respiratory: Equal breath sounds; mechanical ventilation. * Cardiovascular: Regular rate, no murmurs. * Abdomen: Soft, mildly distended, binder in place, no tenderness, minimal bowel sounds. Colostomy stoma viable with minimal output. NG draining fluid. Wound VAC in place. * Extremities: Right upper extremity swelling (known DVT on heparin drip). * Skin: Warm, no breakdown. * Neuro: Sedated, unable to follow commands. * Psych: Not assessable. laboratory and microbiology Laboratory Tests 01/15/25 03:11 Test 01/15/25 03:11 Range/Units Serum Glucose 116 H 74-106 mg/dL Microbiology Date/Time Source Procedure Growth Status 01/06/25 14:39 Blood Blood Culture - Final NO GROWTH AFTER 5 DAYS OF INCUBATION. Complete 01/06/25 14:12 Urine - Navarrete Port Urine Culture - Final Complete 01/06/25 13:53 Sputum Gram Stain - Final Complete 01/06/25 13:53 Sputum Respiratory Culture - Final Complete 01/05/25 08:15 Other Abscess Gram Stain - Final Complete 01/05/25 08:15 Other Abscess Anaerobic Culture - Final Complete 01/05/25 08:15 Aerobic Culture - Final Enterococcus faecium - VRE Complete 01/05/25 08:02 Peritoneal Fluid Gram Stain - Final Complete 01/05/25 08:02 Peritoneal Fluid Anaerobic Culture - Final Complete 01/05/25 08:02 Aerobic Culture - Final Enterococcus faecium - VRE Citrobacter freundii Vanc Resistant Enterococcus Complete Problem List/Assessment/Plan Problem List/Assessment/Plan Assessment ( 1. Postoperative state after exploratory laparotomy, adhesiolysis, colostomy creation, and abscess drainage stable but still with high NG output. 2. High gastric residuals likely due to postoperative ileus and sedation effect tube feeds withheld. 3. Peritonitis from VRE and Citrobacter freundii, improving on current antibiotic regimen. 4. Persistent perisplenic fluid collection small, not amenable to drainage at present. 5. Hypoalbuminemia and malnutrition requiring ongoing TPN. 6. Sepsis secondary to intra-abdominal infection, improving. 7. Severe deconditioning and ventilator dependence. Plan Gastrointestinal * Continue NG decompression; monitor output q4h. * Withhold enteral feeding until gastric output decreases and patient tolerates; maintain TPN. * Monitor and document colostomy output daily. * Continue stress ulcer prophylaxis with IV pantoprazole. * Serial abdominal exams; monitor for signs of obstruction or peritonitis. * Continue wound care with VAC. Infectious Disease * Continue meropenem, linezolid, micafungin as per ID recommendations. * Daily CBC and inflammatory markers. * Maintain strict infection control precautions. Nutrition * Reassess enteral feeding readiness daily. Case discussed in detail with the attending physician, including the clinical presentation, diagnostic workup, and comprehensive management plan. Plan discussed with: Other (Nurse) Dietary Evaluation Review Comments: 1. TF: Vital AF@50ml/hr (90g protein, 1440kcal 973 free water) meeting Protein needs 83%, energy needs 80%. 2. TPN per pharmacy meeting 75% of his needs if TF not feasible or NPO>7 days. 3. Diet as tolerated per FORMULA BOTTLER eval when off Vent Expected Outcomes/Goals: Preventing catabolism SOPHIE LANDEROS RESIDENT Jan 15, 2025 16:48
[2025-01-15] MEDS: METOCLOPRAMIDE HCL 5MG/ml INJ 2ml VIAL IV SCH (21:19)
[2025-01-15] MEDS: TPN PER PHARMACY IV NR (21:22)
[2025-01-16] VITALS (105 sets, daily range): BP systolic 108–181; BP diastolic 62–107; PULSE 96–130; RESP 18–43; TEMP 97.5–100.8; O2SAT 95–100
[2025-01-16] MEDS: hydrALAZINE HCL 20 MG/ML VL IV PRN (00:58)
[2025-01-16] MEDS: LABETALOL HCL 20 MG/4 ML VL IV PRN (02:23)
[2025-01-16] MEDS ORDERED: hydrALAZINE HCL 20 MG/ML VL IV PRN (03:15)
[2025-01-16 04:16] LABS: Hematocrit 28.1 % (41.0-53.0); Hemoglobin 9.5 g/dL (13.5-17.5); Mean Corpuscular Hemoglobin 29.6 pg (28.0-32.0); Mean Corpuscular Volume 87.3 fL (80.0-100.0); Nucleated Red Blood Cells % 0.1 %
[2025-01-16 04:18] LABS: Alanine Aminotransferase 32 U/L (7-40); Albumin 3.6 g/dL (3.2-4.8); Anion Gap 8 (5-15); BUN/Creatinine Ratio 41.2 (10.0-20.0); Blood Urea Nitrogen 14 mg/dL (9-23); Carbon Dioxide 30 mmol/L (20-31); Chloride 100 mmol/L (98-107); Magnesium 2.2 mg/dL (1.6-2.6); Potassium 3.8 mmol/L (3.5-5.1); Sodium 138 mmol/L (136-145); Total Protein 7.4 g/dL (5.7-8.2)
[2025-01-16 04:34] LABS: Alkaline Phosphatase 448 U/L (46-116); Bilirubin, Total 0.2 mg/dL (0.2-1.0); Calcium 8.6 mg/dL (8.7-10.4); Glucose 116 mg/dL (74-106)
[2025-01-16 04:58] LABS: INR 1.15 (0.9-1.15); Prothrombin Time 12.0 sec (9.3-11.8)
--- NOTE | 2025-01-16 05:00 | DVH ---
CHEST RADIOGRAPH Indication: ARDS, on vent Technique: Single frontal view of the chest was obtained Comparison: XY CHEST XRAY 1 VIEW on DOS: 01/15/25 FINDINGS: Lines and Tubes: There is a right PICC with its tip terminating in the right atrium. The enteric tube is seen coursing below the left hemidiaphragm however the tip extends outside the field of view. Tr acheostomy tube is unchanged. Lungs: Hazy bilateral airspace disease is similar to prior study. Pleura: No effusion. No pneumothorax. Cardiomediastinal contours: Unremarkable Bones: No acute osseous abnormality. IMPRESSION: 1. No significant change in bilateral airspace disease. 2. Stable position of the support lines and tubes.
[2025-01-16 05:04] LABS: Partial Thromboplastin Time 77.1 SEC (24.5-34.5)
[2025-01-16] MEDS: HEPARIN DRIP/D5W 100UNITS/ML 250 ML IV SCH ×2 (05:24→13:13)
[2025-01-16 07:10] LABS: Base Excess 2.8 mmol/L (-2.0-3.0)
[2025-01-16] MEDS: FLUCONAZOLE 200MG/100ML 100 ML IV SCH (10:26)
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
[2025-01-16 12:20] LABS: INR 1.23 (0.9-1.15); Partial Thromboplastin Time 38.9 SEC (24.5-34.5); Prothrombin Time 12.8 sec (9.3-11.8)
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
--- NOTE | 2025-01-16 13:53 | CONS ---
Pharmacy Clinical Information: HEPARIN DRIP PER PHARMACY SPOKE TO TATYANA LEONARD REGARDING HEPARIN DRIP RATE CHANGE CURRENT RATE 2300 UNITS/HR CURRENT aPTT 38.9 01/16 AT 1125 BOLUS: NO INCREASE HEPARIN DRIP RATE TO 2500 UNITS/HR (NEW RATE) DATE AND TIME NEW RATE STARTED: 01/16/2025 AT 1313 NEXT aPTT 01/16 AT 1915 AISHA JOE READ BACK NEW RATE 2500 UNITS/HR LUPILLO Clemens Jan 16, 2025 13:53
--- NOTE | 2025-01-16 15:41 | DVHPN2 ---
Progress Note Date Seen: Jan 16, 2025 Resident Creating Document: SOPHIE LANDEROS RESIDENT Has the PT tested + for MRSA If YES, has PT been informed?: No Medical Necessity Reason Pt with a Central, PICC or Fol: Yes The following are medically ne: Navarrete Catheter Reason for navarrete catheter: Strict I&O Subjective Review of Systems 01/16/25 The patient is a 44-year-old male, postoperative day 10 following exploratory laparotomy with extensive lysis of adhesions, transverse colostomy and mucus fistula creation, abdominal lavage, and abscess drainage. He also underwent tracheostomy on 01/05 for prolonged ventilatory support. The patient remains intubated on assist-control ventilation (FiO2 30%, tidal volume 400 mL, PEEP 8). Overnight Events / Updates: * NG residuals and GI secretions are reducing; NG output <800 mL with improved gastric drainage on Reglan therapy. * Colostomy output has increased slightly: 300 mL liquid stool in the last 24 hours (vs. 200 mL yesterday). * Feeding: Enteral tube feeds remain on hold per surgical recommendation; plan to consider starting trophic feeds tomorrow if tolerance continues to improve. * No fever, no new abdominal complaints. * Urine output is adequate at 4.07 mL/kg/hr. * Family has been updated on the current GI status and feeding plan. New/Relevant Labs and Imaging * Hematology: WBC elevated but improving, platelets elevated (thrombocytosis), Hgb stable at 9.5, Hct 28.1. * Chemistry: Creatinine 0.34, GFR 147, stable electrolytes. * LFTs: AST/ALT stable, albumin low at 3.3 (previous). * Coagulation: PT 12.8 (high), INR 1.23 (high), APTT 38.9 (high). * Imaging: No new imaging today; previous CT (01/14) showed encapsulated perisplenic collection and postsurgical changes without new obstruction or leak. Review of Systems Limited due to sedation and mechanical ventilation. * GI: High NG output (improving), increasing colostomy stool output, no hematemesis or melena. * Respiratory: Ventilator dependent, FiO2 30% Objective vital signs Vital Sign Date Time Temp Pulse Resp B/P (MAP) Pulse Ox O2 Delivery O2 Flow Rate FiO2 01/16/25 15:15 99.9 119 29 135/79 (97) 95 211.8 01/16/25 14:05 30 01/16/25 14:00 Mechanical Ventilator+ Total Intake and Output 01/15/25 01/15/25 01/16/25 15:00 23:00 07:00 Intake Total 2226.046 ml 1746.130 ml 2143.230 ml Output Total 3520 ml 6390 ml Balance 2226.046 ml -1773.870 ml -4246.770 ml medications Current Medications Medications Dose Ordered Sig/Sherron Route Start Time Stop Time Status Last Admin Dose Admin Pantoprazole Sodium 40 mg DAILY IV 12/18/24 10:00 01/16/25 10:25 40 MG Midazolam HCl 50 ml @ 1 mls/hr Q24H IV 12/17/24 17:00 01/16/25 10:35 15 MLS/HR Valproate Sodium 250 mg/Sodium Chloride 52.5 ml @ 52.5 mls/hr BID IV 12/17/24 22:00 01/16/25 10:00 52.5 MLS/HR Propofol 100 ml @ 2.37 mls/hr Q24H IV 12/17/24 18:15 01/16/25 13:46 14.22 MLS/HR Norepinephrine Bitartrate 250 ml @ 3.75 mls/hr Q24H IV 12/18/24 01:45 01/07/25 00:59 3.75 MLS/HR Diagnostic Test (Pha) 1 strip Q6HR 12/20/24 18:00 01/16/25 12:00 1 STRIP Insulin Human Regular FOLLOW SLIDING SCALE Q6HR SC 12/20/24 18:00 01/06/25 05:34 2 UNITS Dextrose 50 ml UD IV 12/20/24 14:15 12/20/24 17:47 50 ML Sodium Chloride 40 meq/Potassium Chloride 40 meq/ Potassium Phosphate 11 meq/ Calcium Gluconate 2.3 meq/Magnesium Sulfate 8 meq/ Multivitamins 10 ml/Chromium/ Copper/Manganese/ Zinc 1 ml/Amino Acids/Dextrose/ Purified Water 1,450.4462 ml @ 60 mls/hr [id number] IV 12/26/24 22:00 12/27/24 21:59 Cancel Ipratropium [place] 0.5 mg Q6HR NEB 12/27/24 18:00 01/16/25 12:16 0.5 MG Levalbuterol HCl 1.25 mg Q6HR NEB 12/27/24 18:00 01/16/25 12:16 1.25 MG Amino Acids 0 ml @ 0 mls/hr PER PHARMACY IV 12/27/24 12:30 Sodium Chloride 10 ml QSHIFT@10,22 IV 12/27/24 22:00 01/16/25 10:26 10 ML Artificial Tears 1 drop Q6HP PRN EACHEYE 12/29/24 23:45 01/06/25 09:00 1 DROP Meropenem 50 ml @ 17 mls/hr Q8HR IV 12/31/24 14:00 01/16/25 05:21 17 MLS/HR Ketamine HCl 50 mg [id number] PRN IV 01/04/25 15:00 01/05/25 07:00 Cancel Acetaminophen 1,000 mg [id number] PRN IV 01/05/25 04:00 01/12/25 22:38 1,000 MG Sodium Chloride 120 meq/Potassium Chloride 50 meq/ Potassium Acetate 50 meq/Calcium Gluconate 4.65 meq/Magnesium Sulfate 34 meq/ Multivitamins 10 ml/Chromium/ Copper/Manganese/ Zinc 1 ml/Amino Acids/Dextrose/ Purified Water 1,659.5 ml @ 68.108 mls/hr [id number] IV 01/09/25 22:00 01/10/25 21:59 Cancel Sodium Chloride 100 meq/Potassium Chloride 50 meq/ Calcium Gluconate 4.65 meq/ Magnesium Sulfate 34 meq/ Multivitamins 10 ml/Chromium/ Copper/Manganese/ Zinc 1 ml/Sodium Phosphate 20 meq/ Potassium Acetate 50 meq/Amino Acids/Dextrose/ Purified Water 1,659.5 ml @ 68.537 mls/hr [id number] IV 01/09/25 09:30 01/09/25 21:59 Cancel Linezolid 300 ml @ 150 mls/hr Q12H IV 01/11/25 23:00 01/16/25 13:47 150 MLS/HR Ketamine HCl 1000 mg/Sodium Chloride 500 ml @ 2.91 mls/hr Q24H IV 01/13/25 18:30 01/16/25 08:21 52.38 MLS/HR Fentanyl Citrate 250 ml @ 2.5 mls/hr Q24H IV 01/14/25 12:45 01/16/25 13:27 30 MLS/HR Sodium Chloride 200 meq/Potassium Chloride 140 meq/ Calcium Gluconate 2.3 meq/Magnesium Sulfate 40 meq/ Multivitamins 10 ml/Chromium/ Copper/Manganese/ Zinc 1 ml/Amino Acids/Dextrose/ Purified Water 1,695.9462 ml @ 71 mls/hr [id number] IV 01/15/25 22:00 01/16/25 21:59 01/15/25 21:22 71 MLS/HR Fluconazole 100 ml @ 100 mls/hr 10,11 IV 01/16/25 10:00 01/16/25 12:39 100 MLS/HR Metoclopramide HCl 5 mg Q8HR IV 01/15/25 22:00 01/16/25 05:20 5 MG Labetalol HCl 10 mg Q4HPRN PRN IV 01/16/25 02:20 01/16/25 02:23 10 MG Hydralazine HCl 10 mg Q6HP PRN IV 01/16/25 03:15 Sodium Chloride 190 meq/Potassium Chloride 140 meq/ Calcium Gluconate 3 meq/Magnesium Sulfate 38 meq/ Multivitamins 10 ml/Chromium/ Copper/Manganese/ Zinc 1 ml/Amino Acids/Dextrose/ Purified Water 1,694.4516 ml @ 71 mls/hr [id number] IV 01/16/25 22:00 01/17/25 21:59 Heparin Sodium/ Dextrose 250 ml @ 25 mls/hr Q10H IV 01/16/25 12:45 01/16/25 13:13 25 MLS/HR Furosemide 40 mg DAILY IV 01/17/25 10:00 Examination * General: Intubated, sedated, mechanically ventilated. * HEENT: Tracheostomy in place, mucous membranes moist. * Abdominal: Soft, nondistended, binder in place, wound VAC intact, minimal tenderness, stoma viable with small amount of liquid stool, drains with output. laboratory and microbiology Laboratory Tests 01/16/25 03:00 Test 01/16/25 03:00 Range/Units Serum Glucose 116 H 74-106 mg/dL Microbiology Date/Time Source Procedure Growth Status 01/06/25 14:39 Blood Blood Culture - Final NO GROWTH AFTER 5 DAYS OF INCUBATION. Complete 01/06/25 14:12 Urine - Navarrete [place] Urine Culture - Final Complete 01/06/25 13:53 Sputum Gram Stain - Final Complete 01/06/25 13:53 Sputum Respiratory Culture - Final Complete 01/05/25 08:15 Other Abscess Gram Stain - Final Complete 01/05/25 08:15 Other Abscess Anaerobic Culture - Final Complete 01/05/25 08:15 Aerobic Culture - Final Enterococcus faecium - VRE Complete 01/05/25 08:02 Peritoneal Fluid Gram Stain - Final Complete 01/05/25 08:02 Peritoneal Fluid Anaerobic Culture - Final Complete 01/05/25 08:02 Aerobic Culture - Final Enterococcus faecium - VRE Citrobacter freundii Vanc Resistant Enterococcus Complete Problem List/Assessment/Plan Problem List/Assessment/Plan Assessment ( 1. Postoperative state after exploratory laparotomy, adhesiolysis, colostomy creation, and abscess drainage decreasing NG residuals, colostomy output increasing. 3. Peritonitis from VRE and Citrobacter freundii, improving on current antibiotic regimen. 4. Persistent perisplenic fluid collection small, not amenable to drainage at present. 5. Hypoalbuminemia and malnutrition requiring ongoing TPN. 6. Sepsis secondary to intra-abdominal infection, improving. 7. Severe deconditioning and ventilator dependence. Plan Gastrointestinal * Continue NG decompression; monitor output q4h. * Withhold enteral feeding until gastric output decreases and patient tolerates; maintain TPN. * Monitor and document colostomy output daily. * Continue Reglan to enhance GI motility. * Continue stress ulcer prophylaxis with IV pantoprazole. * Serial abdominal exams; monitor for signs of obstruction or peritonitis. * Continue wound care with VAC. * Continue current IV antibiotics (meropenem, linezolid, micafungin) as per ID recommendations for VRE and Citrobacter coverage. * Monitor CBC, inflammatory markers, and cultures. Infectious Disease * Continue meropenem, linezolid, micafungin as per ID recommendations. * Daily CBC and inflammatory markers. * Maintain strict infection control precautions. Nutrition * Reassess enteral feeding readiness daily. Case discussed in detail with the attending physician, including the clinical presentation, diagnostic workup, and comprehensive management plan. Plan discussed with: Other (nurse) Dietary Evaluation Review Comments: 1. TF: Vital AF@50ml/hr (90g protein, 1440kcal 973 free water) meeting Protein needs 83%, energy needs 80%. 2. TPN per pharmacy meeting 75% of his needs if TF not feasible or NPO>7 days. 3. Diet as tolerated per DIGITAL TECHNICIAN eval when off Vent Expected Outcomes/Goals: Preventing catabolism SOPHIE LANDEROS RESIDENT Jan 16, 2025 15:40
[2025-01-16] MEDS: OMNIPAQUE 12mg/ml 500ml ORAL SOLUTION PO ONE (17:56)
[2025-01-16 19:58] LABS: INR 1.15 (0.9-1.15); Partial Thromboplastin Time 59.0 SEC (24.5-34.5); Prothrombin Time 12.0 sec (9.3-11.8)
--- NOTE | 2025-01-16 20:05 | DVH ---
EXAM: XY CHEST PORTABLE CLINICAL HISTORY: DOBBHOFF PLACEMENT TECHNIQUE: Single AP view of the chest WID: COMPARISON: XY CHEST XRAY 1 VIEW on DOS: 01/16/25 FINDINGS: Lines and tubes: Tracheostomy is in place. Gastric tube with the tip projecting over the body of the stomach. There is a right PICC with the tip projecting over the right atrium. Chest: The heart size and pulmonary vasculature is within normal limits. Patchy mixed airspace opacities bilaterally. This is not significantly changed which is greater in th e right upper lung and the left lower lung. No pneumothorax. Small left pleural effusion. The osseous structures are grossly intact. IMPRESSION: Gastric tube in place with the tip projecting over the body of the stomach. Tracheostomy and right PICC in place. Patchy mixed airspace opacities bilaterally not significantly changed, greatest in the right upper allegra ng and in the left lower lung. Small left pleural effusion.
[2025-01-16] MEDS: TPN PER PHARMACY IV NR (22:06)
[2025-01-17] VITALS (108 sets, daily range): BP systolic 109–180; BP diastolic 56–107; PULSE 93–131; RESP 14–36; TEMP 97.9–100; O2SAT 88–100
[2025-01-17 01:17] LABS: INR 1.17 (0.9-1.15); Prothrombin Time 12.2 sec (9.3-11.8)
[2025-01-17 01:25] LABS: Partial Thromboplastin Time 86.3 SEC (24.5-34.5)
[2025-01-17] MEDS: HEPARIN DRIP/D5W 100UNITS/ML 250 ML IV SCH (04:03)
[2025-01-17 04:13] LABS: Hematocrit 27.8 % (41.0-53.0); Hemoglobin 9.4 g/dL (13.5-17.5)
[2025-01-17 04:16] LABS: Mean Corpuscular Hemoglobin 29.9 pg (28.0-32.0); Mean Corpuscular Volume 88.1 fL (80.0-100.0); Nucleated Red Blood Cells % 0.2 %
[2025-01-17 04:27] LABS: Alanine Aminotransferase 25 U/L (7-40); Albumin 3.7 g/dL (3.2-4.8); Anion Gap 9 (5-15); BUN/Creatinine Ratio 45.9 (10.0-20.0); Blood Urea Nitrogen 17 mg/dL (9-23); Calcium 9.0 mg/dL (8.7-10.4); Carbon Dioxide 28 mmol/L (20-31); Chloride 101 mmol/L (98-107); Magnesium 1.9 mg/dL (1.6-2.6); Potassium 3.9 mmol/L (3.5-5.1); Sodium 138 mmol/L (136-145); Total Protein 7.3 g/dL (5.7-8.2)
[2025-01-17 04:29] LABS: Alkaline Phosphatase 336 U/L (46-116); Bilirubin, Total 0.2 mg/dL (0.2-1.0); Glucose 110 mg/dL (74-106)
--- NOTE | 2025-01-17 05:32 | DVH ---
CHEST RADIOGRAPH Indication: ARDS/ DOBHOFF PLACEMENT Technique: Single frontal view of the chest was obtained Comparison: XY CHEST PORTABLE on DOS: 01/16/25 FINDINGS: Lines and Tubes: The enteric tube courses below the left hemidiaphragm and the tip extends outside th e field of view. Smaller caliber NG tube also courses outside the field of view. Tracheostomy tube is unchanged. Right PICC terminates in the superior vena cava. Lungs: Bibasilar airspace disease similar to prior study. Pleura: Stable small left pleural effusion. No pneumothorax. Cardiomediastinal contours: Stable Cardiovascular silhouette. Bones: No acute osseous abnormality. IMPRESSION: 1. No significant interval change.
[2025-01-17] MEDS: FUROSEMIDE 40 MG/4 ML VIAL IV SCH (09:22)
[2025-01-17 09:28] LABS: Base Excess -1.9 mmol/L (-2.0-3.0)
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
[2025-01-17 11:09] LABS: INR 1.21 (0.9-1.15); Partial Thromboplastin Time 51.1 SEC (24.5-34.5); Prothrombin Time 12.6 sec (9.3-11.8)
--- NOTE | 2025-01-17 13:23 | DVH ---
Indication: DOBBHOFF PLACEMENT VERIFICATION Technique: XY KUB ABDOMEN SINGLE VIEWXY Comparison: None FINDINGS/IMPRESSION: There are nasogastric and feeding tubes with both projecting towards the distal stomach. Cardiomegaly and bilateral pulmonary airspace opacities more pronounced within the left lower lung. Small left pleural effusion. Left lower quadrant ostomy.
--- NOTE | 2025-01-17 16:38 | DVHPN2 ---
Progress Note Date Seen: Jan 17, 2025 Resident Creating Document: SOPHIE LANDEROS RESIDENT Has the PT tested + for MRSA If YES, has PT been informed?: No Medical Necessity Reason Pt with a Central, PICC or Fol: Yes The following are medically ne: Navarrete Catheter Reason for navarrete catheter: Strict I&O Subjective Review of Systems 01/17/25 * Sedation being weaned (decreasing fentanyl and Versed). * Colostomy output: 200 mL overnight, soft stool, stoma viable. * NG output/residuals: 200 mL, improving from prior days. * Feeds: Trickle enteral feeding initiated at 10 mL/hr via gastric tube, tolerated so far. * Abdomen: Soft, nondistended, no tenderness. * Patient: Remains intubated, ventilator settings stable (FiO2 30%, PEEP 8, tidal volume 400). * No fevers, hemodynamically stable, urine output adequate (2.08 mL/kg/hr). Summary of Todays Progress * Transitioned from TPN-only to trickle enteral feeding while continuing TPN. * NG output decreased; signs of improving motility. * Stoma functioning with modest output. * Ongoing antibiotic coverage appropriate; no new signs of intra-abdominal infection. * Continuing gradual sedation wean. Review of Systems ROS limited due to sedation. * GI: No reported pain, NG and colostomy functioning, no GI bleeding. * Fever: None. * Other systems: As per ICU team. Objective vital signs Vital Sign Date Time Temp Pulse Resp B/P (MAP) Pulse Ox O2 Delivery O2 Flow Rate FiO2 01/17/25 16:05 115 155/90 01/17/25 15:55 31 100 30 01/17/25 15:15 99.7 211.5 01/17/25 14:00 Mechanical Ventilator+ Total Intake and Output 01/16/25 01/16/25 01/17/25 15:00 23:00 07:00 Intake Total 1876.78 ml 1656.30 ml 1606.42 ml Output Total 2375 ml 2720 ml Balance 1876.78 ml -718.70 ml -1113.58 ml medications Current Medications Medications Dose Ordered Sig/Sherron Route Start Time Stop Time Status Last Admin Dose Admin Pantoprazole Sodium 40 mg DAILY IV 12/18/24 10:00 01/17/25 09:21 40 MG Midazolam HCl 50 ml @ 1 mls/hr Q24H IV 12/17/24 17:00 01/17/25 15:12 7 MLS/HR Valproate Sodium 250 mg/Sodium Chloride 52.5 ml @ 52.5 mls/hr BID IV 12/17/24 22:00 01/17/25 10:33 52.5 MLS/HR Propofol 100 ml @ 2.37 mls/hr Q24H IV 12/17/24 18:15 01/17/25 15:11 23.7 MLS/HR Norepinephrine Bitartrate 250 ml @ 3.75 mls/hr Q24H IV 12/18/24 01:45 01/07/25 00:59 3.75 MLS/HR Diagnostic Test (Pha) 1 strip Q6HR 12/20/24 18:00 01/17/25 12:00 1 STRIP Insulin Human Regular FOLLOW SLIDING SCALE Q6HR SC 12/20/24 18:00 01/06/25 05:34 2 UNITS Dextrose 50 ml UD IV 12/20/24 14:15 12/20/24 17:47 50 ML Sodium Chloride 40 meq/Potassium Chloride 40 meq/ Potassium Phosphate 11 meq/ Calcium Gluconate 2.3 meq/Magnesium Sulfate 8 meq/ Multivitamins 10 ml/Chromium/ Copper/Manganese/ Zinc 1 ml/Amino Acids/Dextrose/ Purified Water 1,450.4462 ml @ 60 mls/hr [id number] IV 12/26/24 22:00 12/27/24 21:59 Cancel Ipratropium [place] 0.5 mg Q6HR NEB 12/27/24 18:00 01/17/25 11:46 0.5 MG Levalbuterol HCl 1.25 mg Q6HR NEB 12/27/24 18:00 01/17/25 11:45 1.25 MG Amino Acids 0 ml @ 0 mls/hr PER PHARMACY IV 12/27/24 12:30 Sodium Chloride 10 ml QSHIFT@10,22 IV 12/27/24 22:00 01/17/25 09:22 10 ML Artificial Tears 1 drop Q6HP PRN EACHEYE 12/29/24 23:45 01/06/25 09:00 1 DROP Meropenem 50 ml @ 17 mls/hr Q8HR IV 12/31/24 14:00 01/17/25 16:15 17 MLS/HR Ketamine HCl 50 mg [id number] PRN IV 01/04/25 15:00 01/05/25 07:00 Cancel Acetaminophen 1,000 mg [id number] PRN IV 01/05/25 04:00 01/16/25 18:18 1,000 MG Sodium Chloride 120 meq/Potassium Chloride 50 meq/ Potassium Acetate 50 meq/Calcium Gluconate 4.65 meq/Magnesium Sulfate 34 meq/ Multivitamins 10 ml/Chromium/ Copper/Manganese/ Zinc 1 ml/Amino Acids/Dextrose/ Purified Water 1,659.5 ml @ 68.108 mls/hr [id number] IV 01/09/25 22:00 01/10/25 21:59 Cancel Sodium Chloride 100 meq/Potassium Chloride 50 meq/ Calcium Gluconate 4.65 meq/ Magnesium Sulfate 34 meq/ Multivitamins 10 ml/Chromium/ Copper/Manganese/ Zinc 1 ml/Sodium Phosphate 20 meq/ Potassium Acetate 50 meq/Amino Acids/Dextrose/ Purified Water 1,659.5 ml @ 68.537 mls/hr [id number] IV 01/09/25 09:30 01/09/25 21:59 Cancel Linezolid 300 ml @ 150 mls/hr Q12H IV 01/11/25 23:00 01/17/25 15:04 150 MLS/HR Ketamine HCl 1000 mg/Sodium Chloride 500 ml @ 2.91 mls/hr Q24H IV 01/13/25 18:30 01/17/25 14:58 52.38 MLS/HR Fentanyl Citrate 250 ml @ 2.5 mls/hr Q24H IV 01/14/25 12:45 01/17/25 15:21 20 MLS/HR Fluconazole 100 ml @ 100 mls/hr 10,11 IV 01/16/25 10:00 01/17/25 11:20 100 MLS/HR Metoclopramide HCl 5 mg Q8HR IV 01/15/25 22:00 01/17/25 15:11 5 MG Labetalol HCl 10 mg Q4HPRN PRN IV 01/16/25 02:20 01/17/25 16:05 10 MG Sodium Chloride 190 meq/Potassium Chloride 140 meq/ Calcium Gluconate 3 meq/Magnesium Sulfate 38 meq/ Multivitamins 10 ml/Chromium/ Copper/Manganese/ Zinc 1 ml/Amino Acids/Dextrose/ Purified Water 1,694.4516 ml @ 71 mls/hr [id number] IV 01/16/25 22:00 01/17/25 21:59 01/16/25 22:06 71 MLS/HR Furosemide 40 mg DAILY IV 01/17/25 10:00 01/17/25 09:22 40 MG Heparin Sodium/ Dextrose 250 ml @ 23 mls/hr [id number] IV 01/17/25 01:30 01/17/25 14:59 23 MLS/HR Sodium Chloride 190 meq/Potassium Chloride 140 meq/ Calcium Gluconate 2.3 meq/Magnesium Sulfate 40 meq/ Multivitamins 10 ml/Chromium/ Copper/Manganese/ Zinc 1 ml/Amino Acids/Dextrose/ Purified Water 1,693.4462 ml @ 71 mls/hr [id number] IV 01/17/25 22:00 01/18/25 21:59 Enteral Nutritional Formula 1,000 ml 30ML/HR GT 01/17/25 14:30 UNV Examination * General: Sedated, intubated, hemodynamically stable. * Abdomen: Soft, nondistended, binder in place. * Colostomy: Viable, functional with 200 mL output. * NG Tube: In place, 200 mL residual noted. * Other: Extremities without edema, laboratory and microbiology Laboratory Tests 01/17/25 03:49 Test 01/17/25 03:49 Range/Units Serum Glucose 110 H 74-106 mg/dL Microbiology Date/Time Source Procedure Growth Status 01/06/25 14:39 Blood Blood Culture - Final NO GROWTH AFTER 5 DAYS OF INCUBATION. Complete 01/06/25 14:12 Urine - Navarrete Port Urine Culture - Final Complete 01/06/25 13:53 Sputum Gram Stain - Final Complete 01/06/25 13:53 Sputum Respiratory Culture - Final Complete 01/05/25 08:15 Other Abscess Gram Stain - Final Complete 01/05/25 08:15 Other Abscess Anaerobic Culture - Final Complete 01/05/25 08:15 Aerobic Culture - Final Enterococcus faecium - VRE Complete 01/05/25 08:02 Peritoneal Fluid Gram Stain - Final Complete 01/05/25 08:02 Peritoneal Fluid Anaerobic Culture - Final Complete 01/05/25 08:02 Aerobic Culture - Final Enterococcus faecium - VRE Citrobacter freundii Vanc Resistant Enterococcus Complete Problem List/Assessment/Plan Problem List/Assessment/Plan Assessment 1. Postoperative status s/p laparotomy, adhesiolysis, colostomy, abscess drainage stable, bowel function returning. 2. Decreasing NG residuals, improving motility now tolerating minimal enteral nutrition. 3. Trickle feeds started (Vital AF 1.2 Andrea at 10 mL/hr) tolerated without complications. 4. Colostomy output stable (200 mL) no obstruction, no ischemia. 5. Sepsis from VRE/Citrobacter peritonitis improving, on appropriate antimicrobials. 6. TPN dependency continuing until enteral feeding can be advanced. Treatment Plan Gastrointestinal * Continue trickle tube feeding at 10 mL/hr, monitor tolerance (residuals, abdominal distention, stool output). * Maintain NG tube decompression, check residuals q4h. * Continue Reglan for prokinetic effect. * Continue wound care for abdominal incision and VAC management. * Monitor colostomy output and stoma viability. Nutrition * Continue TPN with electrolyte repletion as needed; transition to full enteral feeds as tolerated. * Adjust caloric intake based on lab trends and feed tolerance. Prophylaxis * Stress ulcer prophylaxis: Pantoprazole IV. We will continue to monitor the patient. Case discussed in detail with the attending physician, including the clinical presentation, diagnostic workup, and comprehensive management plan. Plan discussed with: Other (NURSE) Dietary Evaluation Review Comments: 1. TF: Vital AF@50ml/hr (90g protein, 1440kcal 973 free water) meeting Protein needs 83%, energy needs 80%. 2. TPN per pharmacy meeting 75% of his needs if TF not feasible or NPO>7 days. 3. Diet as tolerated per [employer] eval when off Vent Expected Outcomes/Goals: Preventing catabolism SOPHIE LANDEROS RESIDENT Jan 17, 2025 16:38
[2025-01-17 17:27] LABS: INR 1.19 (0.9-1.15); Partial Thromboplastin Time 34.5 SEC (24.5-34.5); Prothrombin Time 12.4 sec (9.3-11.8)
--- NOTE | 2025-01-17 17:54 | CONS ---
Pharmacy Clinical Information: 01/17/25 @ 1645 aPTT: 34.5 Current rate: 2300 units/hr Bolus 5,000 units Increase rate 300 units/hr New rate: 2600 units/hr Next aPTT order 01/18/25 @ 0002 RAJAN Torres [facility] Jan 17, 2025 17:54
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
[2025-01-17] MEDS: HEPARIN SODIUM (PORCINE) 5000 UNITS/ML 1ML VIAL IV ONE (18:53)
[2025-01-17] MEDS: Vital AF 1.2 Cal 1 liter bottle GT SCH (18:55)
[2025-01-17] MEDS: TPN PER PHARMACY IV NR (21:53)
[2025-01-18] VITALS (116 sets, daily range): BP systolic 108–173; BP diastolic 54–103; PULSE 32–123; RESP 15–41; TEMP 98.8–100.8; O2SAT 88–100
[2025-01-18 01:03] LABS: INR 1.19 (0.9-1.15); Prothrombin Time 12.4 sec (9.3-11.8)
[2025-01-18 01:06] LABS: Partial Thromboplastin Time 108.1 SEC (24.5-34.5)
[2025-01-18] MEDS: HEPARIN DRIP/D5W 100UNITS/ML 250 ML IV SCH ×2 (02:15→09:10)
[2025-01-18 04:06] LABS: Hematocrit 26.5 % (41.0-53.0); Hemoglobin 8.9 g/dL (13.5-17.5); Mean Corpuscular Hemoglobin 29.5 pg (28.0-32.0); Mean Corpuscular Volume 87.9 fL (80.0-100.0); Nucleated Red Blood Cells % 0.1 %
[2025-01-18 04:21] LABS: Alanine Aminotransferase 20 U/L (7-40); Albumin 3.6 g/dL (3.2-4.8); Anion Gap 8 (5-15); BUN/Creatinine Ratio 38.1 (10.0-20.0); Blood Urea Nitrogen 16 mg/dL (9-23); Calcium 9.3 mg/dL (8.7-10.4); Carbon Dioxide 28 mmol/L (20-31); Chloride 101 mmol/L (98-107); Glucose 95 mg/dL (74-106); Magnesium 1.9 mg/dL (1.6-2.6); Potassium 4.0 mmol/L (3.5-5.1); Sodium 137 mmol/L (136-145); Total Protein 7.2 g/dL (5.7-8.2)
[2025-01-18 04:38] LABS: Alkaline Phosphatase 272 U/L (46-116); Bilirubin, Total 0.2 mg/dL (0.2-1.0); Triglycerides 201 mg/dL (< 150)
--- NOTE | 2025-01-18 07:25 | DVH ---
CHEST RADIOGRAPH Indication: on vent, ARDS resolving Technique: Single frontal view of the chest was obtained Comparison: XY CHEST PORTABLE on DOS: 01/17/25 FINDINGS: Lines and Tubes: Tracheostomy tube is unchanged. Right PICC terminates in the right atrium. Enteric tubes course below the left hemidiaphragm and the tips extend outside the field of view. Lungs: Patchy bilateral airspace disease similar to prior study. Pleura: No pneumothorax. Small left pleural effusion. No pneumothorax. Cardiomediastinal contours: Unremarkable Bones: No acute osseous abnormality. IMPRESSION: 1. Appropriate position of the support lines and tubes. 2. Increased bilateral airspace disease since prior study which may reflect worsening edema or pneumo jae. Left pleural effusion similar to prior study.
[2025-01-18 08:34] LABS: Base Excess 0.7 mmol/L (-2.0-3.0)
[2025-01-18 09:00] LABS: INR 1.17 (0.9-1.15); Prothrombin Time 12.2 sec (9.3-11.8)
[2025-01-18 09:01] LABS: Partial Thromboplastin Time 87.3 SEC (24.5-34.5)
--- NOTE | 2025-01-18 09:20 | CONS ---
Pharmacy Clinical Information: NEW HEPARIN RATE @2100 UNITS/HR OR 21ML/HR SINCE APTT = 87.3 ON 01/18 @0821 PER RX PROTOCOL NEXT APTT RENETTA @1510 01/18 ZARI LEONARD AWARE AND REPEATED ORDER BACK DECREASED FROM 23 ML/HR TO 21 ML/HR SAI JIMÉNEZ PHARMACIST Jan 18, 2025 09:20
[2025-01-18] MEDS: cloNIDine 0.1 mg/24hr 7 DAY PATCH TD SCH (10:00)
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
[2025-01-18] MEDS: ACETYLCYSTEINE 20%(200MG/ML) SOL 4ML NEB SCH (12:01)
[2025-01-18 14:01] LABS: Triglycerides 196 mg/dL (< 150)
[2025-01-18 14:03] LABS: Cholesterol 157 mg/dL (< 200)
[2025-01-18 14:04] LABS: HDL Cholesterol 22 mg/dL (40-59)
[2025-01-18 15:46] LABS: INR 1.2 (0.9-1.15); Prothrombin Time 12.5 sec (9.3-11.8)
[2025-01-18 15:54] LABS: Partial Thromboplastin Time 59.2 SEC (24.5-34.5)
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
--- NOTE | 2025-01-18 16:44 | DVHPN2 ---
Progress Note Date Seen: Jan 18, 2025 Resident Creating Document: SOPHIE LANDEROS RESIDENT Has the PT tested + for MRSA If YES, has PT been informed?: No Medical Necessity Reason Pt with a Central, PICC or Fol: Yes The following are medically ne: Navarrete Catheter Reason for navarrete catheter: Strict I&O Subjective Review of Systems GI-specific updates for today: * Dobhoff tube inserted; trickle enteral feeding ongoing at 10 mL/hr. * Gastric residuals: 250 mL over last 24 hours, with bile noted in NG drainage. * Colostomy output: 200 mL liquid stool overnight. * Abdomen: Soft, nondistended, stoma viable. * No new bowel movement apart from colostomy output. * Ventilator: Intubated, FiO2 30%, PEEP decreased to 5, tidal volume 400. * RASS -4, sedated but stable. * Good urine output. * Chest X-ray shows improving bilateral pulmonary infiltrates. Summary of Todays Progress * Enteral feeds tolerated with minimal gastric residuals (250 mL). * Colostomy functional with stable output. * Bile noted in NG drainage; ongoing monitoring for feed tolerance. * Pulmonary status improving; PEEP reduced. * Mild Tmax, no hemodynamic instability. * Continuing antibiotic regimen: Meropenem, Linezolid, Fluconazole. Review of Systems: RESPIRATORY:Abnormal Objective vital signs Vital Sign Date Time Temp Pulse Resp B/P (MAP) Pulse Ox O2 Delivery O2 Flow Rate FiO2 01/18/25 16:30 99.5 109 26 153/90 (111) 100 211.1 01/18/25 15:34 30 01/18/25 15:31 Mechanical Ventilator+ Total Intake and Output 01/17/25 01/17/25 01/18/25 15:00 23:00 07:00 Intake Total 1782.64 ml 2137.14 ml 1759.86 ml Output Total 5090 ml 3040 ml Balance 1782.64 ml -2952.86 ml -1280.14 ml medications Current Medications Medications Dose Ordered Sig/Sherron Route Start Time Stop Time Status Last Admin Dose Admin Pantoprazole Sodium 40 mg DAILY IV 12/18/24 10:00 01/18/25 07:35 40 MG Midazolam HCl 50 ml @ 1 mls/hr Q24H IV 12/17/24 17:00 01/18/25 07:46 7 MLS/HR Valproate Sodium 250 mg/Sodium Chloride 52.5 ml @ 52.5 mls/hr BID IV 12/17/24 22:00 01/18/25 09:13 52.5 MLS/HR Propofol 100 ml @ 2.37 mls/hr Q24H IV 12/17/24 18:15 01/18/25 13:39 23.7 MLS/HR Norepinephrine Bitartrate 250 ml @ 3.75 mls/hr Q24H IV 12/18/24 01:45 01/07/25 00:59 3.75 MLS/HR Diagnostic Test (Pha) 1 strip Q6HR 12/20/24 18:00 01/18/25 11:38 1 STRIP Insulin Human Regular FOLLOW SLIDING SCALE Q6HR SC 12/20/24 18:00 01/06/25 05:34 2 UNITS Dextrose 50 ml UD IV 12/20/24 14:15 12/20/24 17:47 50 ML Sodium Chloride 40 meq/Potassium Chloride 40 meq/ Potassium Phosphate 11 meq/ Calcium Gluconate 2.3 meq/Magnesium Sulfate 8 meq/ Multivitamins 10 ml/Chromium/ Copper/Manganese/ Zinc 1 ml/Amino Acids/Dextrose/ Purified Water 1,450.4462 ml @ 60 mls/hr [id number] IV 12/26/24 22:00 12/27/24 21:59 Cancel Ipratropium [place] 0.5 mg Q6HR NEB 12/27/24 18:00 01/18/25 12:00 0.5 MG Levalbuterol HCl 1.25 mg Q6HR NEB 12/27/24 18:00 01/18/25 12:00 1.25 MG Amino Acids 0 ml @ 0 mls/hr PER PHARMACY IV 12/27/24 12:30 Sodium Chloride 10 ml QSHIFT@10,22 IV 12/27/24 22:00 01/18/25 07:36 10 ML Artificial Tears 1 drop Q6HP PRN EACHEYE 12/29/24 23:45 01/06/25 09:00 1 DROP Meropenem 50 ml @ 17 mls/hr Q8HR IV 12/31/24 14:00 01/18/25 12:02 17 MLS/HR Ketamine HCl 50 mg [id number] PRN IV 01/04/25 15:00 01/05/25 07:00 Cancel Acetaminophen 1,000 mg [id number] PRN IV 01/05/25 04:00 01/16/25 18:18 1,000 MG Sodium Chloride 120 meq/Potassium Chloride 50 meq/ Potassium Acetate 50 meq/Calcium Gluconate 4.65 meq/Magnesium Sulfate 34 meq/ Multivitamins 10 ml/Chromium/ Copper/Manganese/ Zinc 1 ml/Amino Acids/Dextrose/ Purified Water 1,659.5 ml @ 68.108 mls/hr [id number] IV 01/09/25 22:00 01/10/25 21:59 Cancel Sodium Chloride 100 meq/Potassium Chloride 50 meq/ Calcium Gluconate 4.65 meq/ Magnesium Sulfate 34 meq/ Multivitamins 10 ml/Chromium/ Copper/Manganese/ Zinc 1 ml/Sodium Phosphate 20 meq/ Potassium Acetate 50 meq/Amino Acids/Dextrose/ Purified Water 1,659.5 ml @ 68.537 mls/hr [id number] IV 01/09/25 09:30 01/09/25 21:59 Cancel Linezolid 300 ml @ 150 mls/hr Q12H IV 01/11/25 23:00 01/18/25 09:10 150 MLS/HR Ketamine HCl 1000 mg/Sodium Chloride 500 ml @ 2.91 mls/hr Q24H IV 01/13/25 18:30 01/18/25 10:00 52.38 MLS/HR Fentanyl Citrate 250 ml @ 2.5 mls/hr Q24H IV 01/14/25 12:45 01/18/25 13:38 25 MLS/HR Fluconazole 100 ml @ 100 mls/hr 10,11 IV 01/16/25 10:00 01/18/25 08:32 100 MLS/HR Metoclopramide HCl 5 mg Q8HR IV 01/15/25 22:00 01/18/25 12:03 5 MG Labetalol HCl 10 mg Q4HPRN PRN IV 01/16/25 02:20 01/18/25 05:07 10 MG Furosemide 40 mg DAILY IV 01/17/25 10:00 01/18/25 07:36 40 MG Sodium Chloride 190 meq/Potassium Chloride 140 meq/ Calcium Gluconate 2.3 meq/Magnesium Sulfate 40 meq/ Multivitamins 10 ml/Chromium/ Copper/Manganese/ Zinc 1 ml/Amino Acids/Dextrose/ Purified Water 1,693.4462 ml @ 71 mls/hr [id number] IV 01/17/25 22:00 01/18/25 21:59 01/17/25 21:53 71 MLS/HR Enteral Nutritional Formula 1,000 ml 30ML/HR GT 01/17/25 14:30 01/17/25 18:55 1,000 ML Clonidine HCl 0.1 mg Q7D TD 01/18/25 10:00 Heparin Sodium/ Dextrose 250 ml @ 21 mls/hr [id number] IV 01/18/25 09:15 01/18/25 09:10 21 MLS/HR Sodium Chloride 200 meq/Potassium Chloride 140 meq/ Calcium Gluconate 1.65 meq/ Magnesium Sulfate 40 meq/ Multivitamins 10 ml/Chromium/ Copper/Manganese/ Zinc 1 ml/Amino Acids/Dextrose/ Purified Water 1,694.5483 ml @ 71 mls/hr [id number] IV 01/18/25 22:00 01/19/25 21:59 Acetylcysteine 200 mg Q6HR NEB 01/18/25 12:00 01/18/25 12:01 200 MG Examination * General: Intubated, sedated, hemodynamically stable. * Abdomen: Soft, nondistended, binder in place. No tenderness or guarding. * Colostomy: Viable, liquid stool output 200 mL overnight. * NG Tube: In place with bile-stained drainage; 250 mL residuals over 24 hours. * Skin/Drain Sites: Clean, no erythema or purulence. laboratory and microbiology Laboratory Tests 01/18/25 03:00 Test 01/18/25 03:00 Range/Units Serum Glucose 95 74-106 mg/dL Microbiology Date/Time Source Procedure Growth Status 01/06/25 14:39 Blood Blood Culture - Final NO GROWTH AFTER 5 DAYS OF INCUBATION. Complete 01/06/25 14:12 Urine - Navarrete Port Urine Culture - Final Complete 01/06/25 13:53 Sputum Gram Stain - Final Complete 01/06/25 13:53 Sputum Respiratory Culture - Final Complete 01/05/25 08:15 Other Abscess Gram Stain - Final Complete 01/05/25 08:15 Other Abscess Anaerobic Culture - Final Complete 01/05/25 08:15 Aerobic Culture - Final Enterococcus faecium - VRE Complete 01/05/25 08:02 Peritoneal Fluid Gram Stain - Final Complete 01/05/25 08:02 Peritoneal Fluid Anaerobic Culture - Final Complete 01/05/25 08:02 Aerobic Culture - Final Enterococcus faecium - VRE Citrobacter freundii Vanc Resistant Enterococcus Complete Problem List/Assessment/Plan Problem List/Assessment/Plan Assessment 1. Postoperative status after laparotomy with colostomy and abscess drainage stable, signs of return of bowel function. 2. Enteral nutrition initiation (trickle feeds) tolerated with modest residuals; no signs of feeding intolerance or obstruction. 3. NG bile output expected in the context of early enteral feeding; continue monitoring for changes. 4. Colostomy function output stable, no ischemia or obstruction. 5. Sepsis from VRE/Citrobacter peritonitis improving on antibiotics. 6. TPN dependence continuing alongside trickle feeds. Treatment Plan Gastrointestinal * Continue trickle feeding at 10 mL/hr, reassess tolerance (residuals, abdominal exam) q12h. * Monitor NG drainage and residuals closely; aspirate if >250 mL or bilious output increases significantly. * Maintain NG tube decompression. * Continue Reglan IV q8h to aid GI motility. * Monitor colostomy output for volume, consistency, and viability. * Continue wound VAC care. Infectious Disease * Continue Meropenem, Linezolid, Fluconazole for ongoing treatment of peritonitis and abdominal sepsis. * Monitor cultures, WBC count, and temperature trends. Nutrition * Continue TPN while gradually advancing enteral feeds as tolerated. * Monitor electrolytes, albumin, and nutritional markers daily. Prophylaxis * Stress ulcer prophylaxis: Continue IV Pantoprazole. We will continue to monitor the patient. Case discussed in detail with the attending physician, including the clinical presentation, diagnostic workup, and comprehensive management plan. Plan discussed with: Other (RN) Dietary Evaluation Review Comments: 1. TF: Vital AF@50ml/hr (90g protein, 1440kcal 973 free water) meeting Protein needs 83%, energy needs 80%. 2. TPN per pharmacy meeting 75% of his needs if TF not feasible or NPO>7 days. 3. Diet as tolerated per [employer] HOME SALES CONSULTANT eval when off Vent Expected Outcomes/Goals: Preventing catabolism SOPHIE LANDEROS RESIDENT Jan 18, 2025 16:44
[2025-01-18] MEDS: FUROSEMIDE 40 MG/4 ML VIAL IV ONE (17:08)
--- NOTE | 2025-01-18 20:20 | DVH ---
CHEST RADIOGRAPH Indication: resp distress Technique: Single frontal view of the chest was obtained Comparison: XY CHEST XRAY 1 VIEW on DOS: 01/18/25, XY CHEST PORTABLE on DOS: 01/17/25, XY CHEST PORTABLE on DOS: 01/16/25, XY CHEST XRAY 1 VIEW on DOS: 01/16/25, XY CHEST XRAY 1 VIEW on DOS: 01/15/25 FINDINGS: Lines and Tubes: Unchanged tracheostomy tube, 2 enteric tubes, and right upper extremity PICC. Lungs: Persistent diffuse bilateral mixed pulmonary opacities, with increased consolidation at the ri ght apex. Pleura: Persistent small pleural effusions suspected. No pneumothorax. Cardiomediastinal contours: Unchanged. Bones: Unchanged. IMPRESSION: 1. Increasing consolidation at the right upper lung. Otherwise unchanged bilateral mixed pulmonary o pacities and probable small pleural effusions. 2. Stable support devices.
[2025-01-18 21:30] LABS: INR 1.2 (0.9-1.15); Prothrombin Time 12.5 sec (9.3-11.8)
[2025-01-18 21:37] LABS: Partial Thromboplastin Time 48.9 SEC (24.5-34.5)
[2025-01-18] MEDS: TPN PER PHARMACY IV NR (22:03)
[2025-01-19] VITALS (108 sets, daily range): BP systolic 90–133; BP diastolic 42–82; PULSE 77–108; RESP 17–27; TEMP 97.9–99.7; O2SAT 94–100
[2025-01-19 03:55] LABS: Hematocrit 22.5 % (41.0-53.0); Hemoglobin 8.1 g/dL (13.5-17.5); Mean Corpuscular Hemoglobin 32.1 pg (28.0-32.0); Mean Corpuscular Volume 89.2 fL (80.0-100.0); Nucleated Red Blood Cells % 0.4 %
[2025-01-19 04:13] LABS: Anion Gap 11 (5-15); Carbon Dioxide 23 mmol/L (20-31); Chloride 103 mmol/L (98-107); Sodium 137 mmol/L (136-145); Total Protein 5.8 g/dL (5.7-8.2)
[2025-01-19 04:19] LABS: Glucose 111 mg/dL (74-106)
[2025-01-19 04:21] LABS: Alkaline Phosphatase 170 U/L (46-116); Bilirubin, Total < 0.2 mg/dL (0.2-1.0); Calcium 7.2 mg/dL (8.7-10.4); Magnesium 1.5 mg/dL (1.6-2.6)
[2025-01-19 04:22] LABS: Alanine Aminotransferase 18 U/L (7-40); Albumin 3.0 g/dL (3.2-4.8); BUN/Creatinine Ratio 51.6 (10.0-20.0); Blood Urea Nitrogen 16 mg/dL (9-23); Potassium 3.9 mmol/L (3.5-5.1)
--- NOTE | 2025-01-19 05:39 | DVH ---
CHEST RADIOGRAPH Indication: right sided congestion, on vent Technique: Single frontal view of the chest was obtained Comparison: XY CHEST XRAY 1 VIEW on DOS: 01/18/25, XY CHEST XRAY 1 VIEW on DOS: 01/18/25, XY CHEST PORTAB LE on DOS: 01/17/25, XY CHEST PORTABLE on DOS: 01/16/25, XY CHEST XRAY 1 VIEW on DOS: 01/16/25 FINDINGS: Lines and Tubes: Unchanged tracheostomy tube, enteric tubes, and right upper extremity PICC. Lungs: Persistent diffuse bilateral mixed pulmonary opacities. Pleura: Small pleural effusions. Cardiomediastinal contours: Unchanged. Bones: Unchanged. IMPRESSION: 1. No significant change from the most recent prior exam. Persistent bilateral mixed pulmonary opacit ies. Stable support devices.
[2025-01-19 07:10] LABS: Base Excess -1.1 mmol/L (-2.0-3.0)
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
--- NOTE | 2025-01-19 11:18 | DVHPN2 ---
Progress Note - Dictate Date Seen: Jan 19, 2025 Has the PT tested + for MRSA If YES, has PT been informed?: No Medical Necessity Reason Pt with a Central, PICC or Fol: Yes The following are medically ne: Navarrete Catheter Reason for navarrete catheter: Strict I&O Subjective Patient remains hemodynamically stable off pressors Patient opens eyes but does not follow commands, abdomen soft, non distended, stoma viable with flatus in appliance, stable Wound granulating, good urine output, drains with minimal serous output, Hemoglobin stable at 8.1 after 2 units PRBC No active GI bleeding reported Leukocytosis improving; thrombocytosis improving Patient is on multiple antibiotics Patient is being weaned off sedation On IV heparin for right arm DVT, PT INR therapeutic vital signs Vital Sign Date Time Temp Pulse Resp B/P (MAP) Pulse Ox O2 Delivery O2 Flow Rate FiO2 01/19/25 08:40 105 26 115/68 (84) 98 30 01/19/25 08:00 Mechanical Ventilator+ 01/19/25 07:45 98.8 209.8 Total Intake and Output 01/18/25 01/18/25 01/19/25 15:00 23:00 07:00 Intake Total 2266.24 ml 1867.78 ml 2246.2 ml Output Total 4620 ml 2725 ml Balance 2266.24 ml -2752.22 ml -478.8 ml medications Current Medications Medications Dose Ordered Sig/Sherron Route Start Time Stop Time Status Last Admin Dose Admin Pantoprazole Sodium 40 mg DAILY IV 12/18/24 10:00 01/18/25 07:35 40 MG Midazolam HCl 50 ml @ 1 mls/hr Q24H IV 12/17/24 17:00 01/19/25 07:54 13 MLS/HR Valproate Sodium 250 mg/Sodium Chloride 52.5 ml @ 52.5 mls/hr BID IV 12/17/24 22:00 01/19/25 11:04 52.5 MLS/HR Propofol 100 ml @ 2.37 mls/hr Q24H IV 12/17/24 18:15 01/19/25 06:04 23.7 MLS/HR Norepinephrine Bitartrate 250 ml @ 3.75 mls/hr Q24H IV 12/18/24 01:45 01/07/25 00:59 3.75 MLS/HR Diagnostic Test (Pha) 1 strip Q6HR 12/20/24 18:00 01/19/25 06:03 1 STRIP Insulin Human Regular FOLLOW SLIDING SCALE Q6HR SC 12/20/24 18:00 01/06/25 05:34 2 UNITS Dextrose 50 ml UD IV 12/20/24 14:15 12/20/24 17:47 50 ML Sodium Chloride 40 meq/Potassium Chloride 40 meq/ Potassium Phosphate 11 meq/ Calcium Gluconate 2.3 meq/Magnesium Sulfate 8 meq/ Multivitamins 10 ml/Chromium/ Copper/Manganese/ Zinc 1 ml/Amino Acids/Dextrose/ Purified Water 1,450.4462 ml @ 60 mls/hr [id number] IV 12/26/24 22:00 12/27/24 21:59 Cancel Ipratropium [place] 0.5 mg Q6HR NEB 12/27/24 18:00 01/19/25 06:41 0.5 MG Levalbuterol HCl 1.25 mg Q6HR NEB 12/27/24 18:00 01/19/25 06:41 1.25 MG Amino Acids 0 ml @ 0 mls/hr PER PHARMACY IV 12/27/24 12:30 Sodium Chloride 10 ml QSHIFT@10,22 IV 12/27/24 22:00 01/18/25 21:47 10 ML Artificial Tears 1 drop Q6HP PRN EACHEYE 12/29/24 23:45 01/06/25 09:00 1 DROP Meropenem 50 ml @ 17 mls/hr Q8HR IV 12/31/24 14:00 01/19/25 06:03 17 MLS/HR Ketamine HCl 50 mg [id number] PRN IV 01/04/25 15:00 01/05/25 07:00 Cancel Acetaminophen 1,000 mg [id number] PRN IV 01/05/25 04:00 01/16/25 18:18 1,000 MG Sodium Chloride 120 meq/Potassium Chloride 50 meq/ Potassium Acetate 50 meq/Calcium Gluconate 4.65 meq/Magnesium Sulfate 34 meq/ Multivitamins 10 ml/Chromium/ Copper/Manganese/ Zinc 1 ml/Amino Acids/Dextrose/ Purified Water 1,659.5 ml @ 68.108 mls/hr [id number] IV 01/09/25 22:00 01/10/25 21:59 Cancel Sodium Chloride 100 meq/Potassium Chloride 50 meq/ Calcium Gluconate 4.65 meq/ Magnesium Sulfate 34 meq/ Multivitamins 10 ml/Chromium/ Copper/Manganese/ Zinc 1 ml/Sodium Phosphate 20 meq/ Potassium Acetate 50 meq/Amino Acids/Dextrose/ Purified Water 1,659.5 ml @ 68.537 mls/hr [id number] IV 01/09/25 09:30 01/09/25 21:59 Cancel Linezolid 300 ml @ 150 mls/hr Q12H IV 01/11/25 23:00 01/18/25 23:36 150 MLS/HR Ketamine HCl 1000 mg/Sodium Chloride 500 ml @ 2.91 mls/hr Q24H IV 01/13/25 18:30 01/19/25 03:20 58.2 MLS/HR Fentanyl Citrate 250 ml @ 2.5 mls/hr Q24H IV 01/14/25 12:45 01/19/25 08:06 27.5 MLS/HR Fluconazole 100 ml @ 100 mls/hr 10,11 IV 01/16/25 10:00 01/19/25 11:04 100 MLS/HR Metoclopramide HCl 5 mg Q8HR IV 01/15/25 22:00 01/19/25 06:03 5 MG Furosemide 40 mg DAILY IV 01/17/25 10:00 01/18/25 07:36 40 MG Enteral Nutritional Formula 1,000 ml 30ML/HR GT 01/17/25 14:30 01/17/25 18:55 1,000 ML Heparin Sodium/ Dextrose 250 ml @ 23 mls/hr [id number] IV 01/18/25 09:15 01/19/25 03:43 23 MLS/HR Sodium Chloride 200 meq/Potassium Chloride 140 meq/ Calcium Gluconate 1.65 meq/ Magnesium Sulfate 40 meq/ Multivitamins 10 ml/Chromium/ Copper/Manganese/ Zinc 1 ml/Amino Acids/Dextrose/ Purified Water 1,694.5483 ml @ 71 mls/hr [id number] IV 01/18/25 22:00 01/19/25 21:59 01/18/25 22:03 71 MLS/HR Acetylcysteine 200 mg Q6HR NEB 01/18/25 12:00 01/19/25 06:42 200 MG Labetalol HCl 10 mg Q4HPRN PRN IV 01/18/25 17:15 Sodium Chloride 200 meq/Sodium Acetate 20 meq/ Potassium Chloride 120 meq/ Potassium Acetate 20 meq/Calcium Gluconate 4.65 meq/Magnesium Sulfate 42 meq/ Multivitamins 10 ml/Chromium/ Copper/Manganese/ Zinc 1 ml/Amino Acids/Dextrose/ Purified Water 1,761.5 ml @ 73 mls/hr Q24H8M IV 01/19/25 22:00 01/20/25 21:59 objective General Appearance: On ventilator, FiO2 30% HEENT: Atraumatic, PERRLA, EOMI, Mucous membr. moist/pink Respiratory: Normal air movement, Other (On ventilator) Cardiovascular: Regular rate, Normal S1, Normal S2, No murmurs Abdominal: Binder in place, soft, distended, no bowel sounds; minimal colostomy liquid output Extremities: No clubbing, No cyanosis, No edema, Normal pulses, No tenderness/swelling Skin: No rashes, No breakdown, No significant lesion Neuro: Normal speech, Normal tone, Sensation intact, Cranial nerves 3-12 NL, Reflexes 2+, Other (Generalized weakness) Psych/Mental Status: Mood NL, Other (Altered mental status) Rectal exam, normal tone no obstipation rectal mass or obstruction noted and no stool in the rectum laboratory and microbiology Laboratory Tests 01/19/25 03:00 Test 01/19/25 03:00 Range/Units Serum Glucose 111 H 74-106 mg/dL Problems(with codes): (1) Sigmoid colon injury (2) Septicemia due to vancomycin resistant Enterococcus (VRE) species (3) Peritonitis (4) Constipation (5) Sepsis, unspecified organism (6) Generalized weakness (7) Acute abdominal pain (8) Leukocytosis (9) Abnormal finding on GI tract imaging (10) Leukocytosis, unspecified (11) Abdominal pain Prognosis PLAN : Gastrointestinal * Advance tube feeding at 20 mL/hr, reassess tolerance (residuals, abdominal exam) q12h. * Monitor NG drainage and residuals closely; aspirate if >250 mL or bilious output increases significantly. * Maintain NG tube decompression. * Continue Reglan IV q8h to aid GI motility. * Monitor colostomy output for volume, consistency, and viability. * Continue wound VAC care. Infectious Disease * Continue Meropenem, Linezolid, Fluconazole for ongoing treatment of peritonitis and abdominal sepsis. * Monitor cultures, WBC count, and temperature trends. Nutrition * Continue TPN while gradually advancing enteral feeds as tolerated. * Monitor electrolytes, albumin, and nutritional markers daily. Prophylaxis * Stress ulcer prophylaxis: Continue IV Pantoprazole. We will continue to monitor the patient. Dietary Evaluation Review Comments: 1. TF: Vital AF@50ml/hr (90g protein, 1440kcal 973 free water) meeting Protein needs 83%, energy needs 80%. 2. TPN per pharmacy meeting 75% of his needs if TF not feasible or NPO>7 days. 3. Diet as tolerated per TIER IN eval when off Vent Expected Outcomes/Goals: Preventing catabolism Plan discussed with: Other (Dr Bertrand) MAO COLEMAN MD Jan 19, 2025 11:18
[2025-01-19] MEDS: MAGNESIUM SULFATE 1GM/100ML 100 ML IV ONE (12:15)
[2025-01-19] MEDS: CALCIUM GLUC 1,000mg/50ml-NS 50 ML IV ONE (13:14)
[2025-01-19 14:06] LABS: INR 1.19 (0.9-1.15); Prothrombin Time 12.4 sec (9.3-11.8)
[2025-01-19 14:09] LABS: Partial Thromboplastin Time 93.7 SEC (24.5-34.5)
--- NOTE | 2025-01-19 14:46 | CONS ---
Pharmacy Clinical Information: HEPARIN DRIP CURRENTLY PAUSED PER APTT OF 93.7 AFTER 1 HOUR, RE-START HEPARIN AT RATE 2000 UNITS/HR NEXT APTT DRAW SCHEDULED FOR 2130 PER RX PROTOCOL YOHANNES COTO PHARMACIST Jan 19, 2025 14:46
[2025-01-19] MEDS: HEPARIN DRIP/D5W 100UNITS/ML 250 ML IV SCH (15:35)
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
[2025-01-19] MEDS: ACETYLCYSTEINE 20%(200MG/ML) SOL 4ML ONE (18:14)
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
[2025-01-19] MEDS: TPN PER PHARMACY IV NR (21:35)
[2025-01-19] MEDS: VALPROATE SODIUM 100 MG/ML 5ML VIAL IV ONE (21:40)
[2025-01-19 22:15] LABS: INR 1.18 (0.9-1.15); Prothrombin Time 12.3 sec (9.3-11.8)
[2025-01-19 22:27] LABS: Partial Thromboplastin Time 72.4 SEC (24.5-34.5)
[2025-01-19] MEDS ORDERED: LORazepam 2MG/ML-1ML VIAL IV PRN (22:45)
[2025-01-19] MEDS: FOLIC ACID 1 MG in D5W 5% 50 ML INJ ONE (22:45)
--- NOTE | 2025-01-19 23:48 | DVHPN2 ---
Progress Note - Dictate Date Seen: Jan 19, 2025 Has the PT tested + for MRSA If YES, has PT been informed?: No Medical Necessity Reason Pt with a Central, PICC or Fol: Yes The following are medically ne: Navarrete Catheter Reason for navarrete catheter: Strict I&O Subjective Patient seen and examined at bedside. Sedated, on mechanical ventilator. S/p trach Overnight events reviewed. vital signs Vital Sign Date Time Temp Pulse Resp B/P (MAP) Pulse Ox O2 Delivery O2 Flow Rate FiO2 01/19/25 22:45 99.3 105 26 115/66 (82) 99 210.7 01/19/25 22:17 30 01/19/25 22:00 Mechanical Ventilator+ Total Intake and Output 01/18/25 01/18/25 01/19/25 15:00 23:00 07:00 Intake Total 2266.24 ml 1867.78 ml 2246.2 ml Output Total 4620 ml 2725 ml Balance 2266.24 ml -2752.22 ml -478.8 ml medications Current Medications Medications Dose Ordered Sig/Sherron Route Start Time Stop Time Status Last Admin Dose Admin Pantoprazole Sodium 40 mg DAILY IV 12/18/24 10:00 01/19/25 11:14 40 MG Midazolam HCl 50 ml @ 1 mls/hr Q24H IV 12/17/24 17:00 01/19/25 21:51 13 MLS/HR Valproate Sodium 250 mg/Sodium Chloride 52.5 ml @ 52.5 mls/hr BID IV 12/17/24 22:00 01/19/25 21:50 52.5 MLS/HR Propofol 100 ml @ 2.37 mls/hr Q24H IV 12/17/24 18:15 01/19/25 21:50 23.7 MLS/HR Norepinephrine Bitartrate 250 ml @ 3.75 mls/hr Q24H IV 12/18/24 01:45 01/07/25 00:59 3.75 MLS/HR Diagnostic Test (Pha) 1 strip Q6HR 12/20/24 18:00 01/19/25 18:30 1 STRIP Insulin Human Regular FOLLOW SLIDING SCALE Q6HR SC 12/20/24 18:00 01/06/25 05:34 2 UNITS Dextrose 50 ml UD IV 12/20/24 14:15 12/20/24 17:47 50 ML Sodium Chloride 40 meq/Potassium Chloride 40 meq/ Potassium Phosphate 11 meq/ Calcium Gluconate 2.3 meq/Magnesium Sulfate 8 meq/ Multivitamins 10 ml/Chromium/ Copper/Manganese/ Zinc 1 ml/Amino Acids/Dextrose/ Purified Water 1,450.4462 ml @ 60 mls/hr [id number] IV 12/26/24 22:00 12/27/24 21:59 Cancel Ipratropium [place] 0.5 mg Q6HR NEB 12/27/24 18:00 01/19/25 18:11 0.5 MG Levalbuterol HCl 1.25 mg Q6HR NEB 12/27/24 18:00 01/19/25 18:11 1.25 MG Amino Acids 0 ml @ 0 mls/hr PER PHARMACY IV 12/27/24 12:30 Sodium Chloride 10 ml QSHIFT@10,22 IV 12/27/24 22:00 01/19/25 21:50 10 ML Artificial Tears 1 drop Q6HP PRN EACHEYE 12/29/24 23:45 01/06/25 09:00 1 DROP Meropenem 50 ml @ 17 mls/hr Q8HR IV 12/31/24 14:00 01/19/25 22:00 17 MLS/HR Ketamine HCl 50 mg [id number] PRN IV 01/04/25 15:00 01/05/25 07:00 Cancel Acetaminophen 1,000 mg [id number] PRN IV 01/05/25 04:00 01/16/25 18:18 1,000 MG Sodium Chloride 120 meq/Potassium Chloride 50 meq/ Potassium Acetate 50 meq/Calcium Gluconate 4.65 meq/Magnesium Sulfate 34 meq/ Multivitamins 10 ml/Chromium/ Copper/Manganese/ Zinc 1 ml/Amino Acids/Dextrose/ Purified Water 1,659.5 ml @ 68.108 mls/hr [id number] IV 01/09/25 22:00 01/10/25 21:59 Cancel Sodium Chloride 100 meq/Potassium Chloride 50 meq/ Calcium Gluconate 4.65 meq/ Magnesium Sulfate 34 meq/ Multivitamins 10 ml/Chromium/ Copper/Manganese/ Zinc 1 ml/Sodium Phosphate 20 meq/ Potassium Acetate 50 meq/Amino Acids/Dextrose/ Purified Water 1,659.5 ml @ 68.537 mls/hr [id number] IV 01/09/25 09:30 01/09/25 21:59 Cancel Linezolid 300 ml @ 150 mls/hr Q12H IV 01/11/25 23:00 01/19/25 22:30 150 MLS/HR Ketamine HCl 1000 mg/Sodium Chloride 500 ml @ 2.91 mls/hr Q24H IV 01/13/25 18:30 01/19/25 21:58 58.2 MLS/HR Fentanyl Citrate 250 ml @ 2.5 mls/hr Q24H IV 01/14/25 12:45 01/19/25 16:59 27.5 MLS/HR Fluconazole 100 ml @ 100 mls/hr 10,11 IV 01/16/25 10:00 01/19/25 12:14 100 MLS/HR Metoclopramide HCl 5 mg Q8HR IV 01/15/25 22:00 01/19/25 21:50 5 MG Furosemide 40 mg DAILY IV 01/17/25 10:00 01/19/25 11:15 40 MG Enteral Nutritional Formula 1,000 ml 30ML/HR GT 01/17/25 14:30 01/19/25 16:48 1,000 ML Acetylcysteine 200 mg Q6HR NEB 01/18/25 12:00 01/19/25 18:11 200 MG Labetalol HCl 10 mg Q4HPRN PRN IV 01/18/25 17:15 Sodium Chloride 200 meq/Sodium Acetate 20 meq/ Potassium Chloride 120 meq/ Potassium Acetate 20 meq/Calcium Gluconate 4.65 meq/Magnesium Sulfate 42 meq/ Multivitamins 10 ml/Chromium/ Copper/Manganese/ Zinc 1 ml/Amino Acids/Dextrose/ Purified Water 1,761.5 ml @ 73 mls/hr Q24H8M IV 01/19/25 22:00 01/20/25 21:59 01/19/25 21:35 73 MLS/HR Heparin Sodium/ Dextrose 250 ml @ 20 mls/hr [id number] IV 01/19/25 15:30 01/19/25 15:35 20 MLS/HR Lorazepam 1 mg ONCE PRN IV 01/19/25 22:45 Thiamine HCl 100 mg DAILY IV 01/20/25 10:00 Folic Acid 1 mg DAILY PO 01/20/25 10:00 objective Gen.: Patient lying in bed in medical ICU. Sedated, on mechanical ventilator. S/p trach Head: Normocephalic, atraumatic. Eyes: PERRLA. Ears: Normal external anatomy. Throat: Orogastric tube in place. Neck: Trach in place. Chest: Transmitted breath sounds bilaterally. Decreased air entry bilaterally. No wheezing. Bibasilar crackles. Cardiovascular: Positive S1, positive S2. Regular rate and rhythm. Abdomen: Positive bowel sounds in all 4 quadrants. Soft, nontender, nondistended. : Navarrete in place. Normal external genitalia. Rectal: Deferred. Skin: Warm, dry. Intact. Extremities: 2+ radial pulses bilaterally. No lower extremity edema. Neuro: Sedated. laboratory and microbiology Laboratory Tests 01/19/25 03:00 Test 01/19/25 03:00 Range/Units Serum Glucose 111 H 74-106 mg/dL Assessment/Plan Impression: Acute hypoxic respiratory failure On mechanical ventilator S/p tracheostomy Fluid overload Sepsis S/p exploratory laparotomy Events: Remains on vent support On AC mode; RR 26, VT 400, PEEP 5, FiO2 30% Taper FiO2 as tolerated Patient was febrile overnight Follow up blood cultures from PICC line. S/p trach Trach care per RT Wound care Pt requires multiple sedatives for vent synchrony Sedated on Versed, Propofol On Ketamine Fentanyl drip for analgesia On heparin drip. Continue antibiotics. Continue antifungal - micafungin Continue bronchodilators. TPN for nutritional support Antiepileptic medication ABG reviewed, compensated CXR shows no significant change; Persistent bilateral mixed pulmonary opacities. Labs and imaging reviewed. Rest of plan as noted below. Plan: s/p tracheostomy, on mechanical ventilator. On AC mode; RR 26, VT 400, PEEP 5, FiO2 30% Titrate FIO2 to keep O2 saturation above 90%. VAP bundle. Daily ABG and CXR while intubated Sedate for ventilator synchrony Trach care Continue antibiotics. F/u cultures. S/p colectomy. Follow up GI/Surgery recommendations Pressors as necessary for hemodynamic support. Titrate to keep MAP greater than 65 mmHg. Monitor renal function Monitor electrolytes. Supplement as necessary. Monitor ins and outs. Maintain euvolemia. TPN for nutritional support GI prophylaxis. DVT prophylaxis. Prognosis: Poor given patient's multiple co-morbidities. Condition: Critical Rest of plan per hospitalist and other consultants. A total of 35 minutes of critical care time was spent reviewing the patient record, examining the patient, making a diagnostic and therapeutic plan, discussing this plan with the medical personnel, following up on diagnostic studies and following the patient for clinical stability excluding any and all procedures. At least 50% of this time was spent in direct, [id number] contact. Thank you, Dr. Brennan, for allowing me to participate in this patient's care. Further recommendations will depend on the patient's clinical course. Please do not hesitate to contact me if you have any questions or concerns. This medical document was created using an electronic medical record system with [employer] dictation system. Although these documentations are being carefully reviewed, there may still be some phonetic and typographical changes. The errors are purely typographical, due to imperfection on the software program, and do not reflect any compromise in the patient's medical care. Dietary Evaluation Review Comments: 1. TF: Vital AF@50ml/hr (90g protein, 1440kcal 973 free water) meeting Protein needs 83%, energy needs 80%. 2. TPN per pharmacy meeting 75% of his needs if TF not feasible or NPO>7 days. 3. Diet as tolerated per PROBATE PARALEGAL eval when off Vent Expected Outcomes/Goals: Preventing catabolism Plan discussed with: Other (AISHA Cosby) Critical Care Time(min): 35 QUINN LANDON MD Jan 19, 2025 23:48
[2025-01-20] VITALS (107 sets, daily range): BP systolic 96–129; BP diastolic 46–79; PULSE 94–111; RESP 19–28; TEMP 98.2–100; O2SAT 95–100
[2025-01-20] MEDS: THIAMINE 100mg/ml INJ (200mg/2ml VIAL) IV ONE (01:48)
[2025-01-20 04:14] LABS: Nucleated Red Blood Cells % 0.1 %
[2025-01-20 04:16] LABS: Hematocrit 24.6 % (41.0-53.0); Hemoglobin 8.4 g/dL (13.5-17.5); Mean Corpuscular Hemoglobin 30.0 pg (28.0-32.0); Mean Corpuscular Volume 88.0 fL (80.0-100.0)
[2025-01-20 04:26] LABS: INR 1.17 (0.9-1.15); Partial Thromboplastin Time 67.5 SEC (24.5-34.5); Prothrombin Time 12.2 sec (9.3-11.8)
[2025-01-20 04:29] LABS: Alanine Aminotransferase 15 U/L (7-40); Albumin 3.3 g/dL (3.2-4.8); Anion Gap 10 (5-15); BUN/Creatinine Ratio 52.5 (10.0-20.0); Blood Urea Nitrogen 21 mg/dL (9-23); Carbon Dioxide 26 mmol/L (20-31); Chloride 101 mmol/L (98-107); Glucose 94 mg/dL (74-106); Magnesium 1.9 mg/dL (1.6-2.6); Potassium 4.2 mmol/L (3.5-5.1); Sodium 137 mmol/L (136-145); Total Protein 6.5 g/dL (5.7-8.2)
[2025-01-20 04:54] LABS: Alkaline Phosphatase 194 U/L (46-116); Bilirubin, Total 0.2 mg/dL (0.2-1.0); Calcium 8.6 mg/dL (8.7-10.4)
--- NOTE | 2025-01-20 05:31 | DVH ---
CHEST RADIOGRAPH Indication: Intubated. Thank You! Technique: 1 view Comparison: XY CHEST XRAY 1 VIEW on DOS: 01/19/25, XY CHEST XRAY 1 VIEW on DOS: 01/18/25, XY CHEST XRAY 1 VIEW on DOS: 01/18/25, XY CHEST PORTABLE on DOS: 01/17/25, XY CHEST PORTABLE on DOS: 01/16/25 FINDINGS: Lines and Tubes: Unchanged tracheostomy tube, 2 enteric tubes, and right upper extremity PICC. Lungs: Persistent bilateral mixed pulmonary opacities. Pleura: Small pleural effusions. Cardiomediastinal contours: Unchanged. Bones: Unchanged. IMPRESSION: 1. No significant change from the previous study. Stable support devices.
[2025-01-20 07:42] LABS: Base Excess 1.1 mmol/L (-2.0-3.0)
[2025-01-20] MEDS: THIAMINE 100mg/ml INJ (200mg/2ml VIAL) IV SCH (09:20)
[2025-01-20] MEDS: FOLIC ACID 1 MG TAB PO SCH (09:22)
[2025-01-20 11:05] LABS: INR 1.14 (0.9-1.15); Partial Thromboplastin Time 63.6 SEC (24.5-34.5); Prothrombin Time 11.9 sec (9.3-11.8)
--- NOTE | 2025-01-20 11:52 | CONS ---
Pharmacy Clinical Information: HEPARIN DRIP, DVT PROTOCOL @10:22 APTT 63.6 - NO BOLUS / NO CHANGE 3 CONSECUTIVE APTT THERAPEUTIC => APTT EVERY 24 HRS NEXT APTT DRAW SCHEDULED @0500 PER RX PROTOCOL CONFIRMED AND READ BACK WITH DAVID XIONG PHARMACIST Jan 20, 2025 11:52
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
[2025-01-20] MEDS: TPN PER PHARMACY IV NR (20:44)
--- NOTE | 2025-01-20 23:37 | DVHPN2 ---
Progress Note - Dictate Date Seen: Jan 20, 2025 Has the PT tested + for MRSA If YES, has PT been informed?: No Medical Necessity Reason Pt with a Central, PICC or Fol: Yes The following are medically ne: Navarrete Catheter Reason for navarrete catheter: Strict I&O Subjective Patient seen and examined at bedside. Sedated, on mechanical ventilator. S/p trach Overnight events reviewed. vital signs Vital Sign Date Time Temp Pulse Resp B/P (MAP) Pulse Ox O2 Delivery O2 Flow Rate FiO2 01/20/25 23:00 99.0 103 26 112/60 (77) 99 210.2 01/20/25 22:15 30 01/20/25 22:00 Mechanical Ventilator+ Total Intake and Output 01/19/25 01/19/25 01/20/25 15:00 23:00 07:00 Intake Total 2410.7 ml 1881.2 ml 1995.2 ml Output Total 1980 ml 2660 ml Balance 2410.7 ml -98.8 ml -664.8 ml medications Current Medications Medications Dose Ordered Sig/Sherron Route Start Time Stop Time Status Last Admin Dose Admin Pantoprazole Sodium 40 mg DAILY IV 12/18/24 10:00 01/20/25 09:20 40 MG Midazolam HCl 50 ml @ 1 mls/hr Q24H IV 12/17/24 17:00 01/20/25 20:41 13 MLS/HR Valproate Sodium 250 mg/Sodium Chloride 52.5 ml @ 52.5 mls/hr BID IV 12/17/24 22:00 01/20/25 20:40 52.5 MLS/HR Propofol 100 ml @ 2.37 mls/hr Q24H IV 12/17/24 18:15 01/20/25 20:41 23.7 MLS/HR Norepinephrine Bitartrate 250 ml @ 3.75 mls/hr Q24H IV 12/18/24 01:45 01/07/25 00:59 3.75 MLS/HR Diagnostic Test (Pha) 1 strip Q6HR 12/20/24 18:00 01/20/25 17:42 1 STRIP Insulin Human Regular FOLLOW SLIDING SCALE Q6HR SC 12/20/24 18:00 01/06/25 05:34 2 UNITS Dextrose 50 ml UD IV 12/20/24 14:15 12/20/24 17:47 50 ML Sodium Chloride 40 meq/Potassium Chloride 40 meq/ Potassium Phosphate 11 meq/ Calcium Gluconate 2.3 meq/Magnesium Sulfate 8 meq/ Multivitamins 10 ml/Chromium/ Copper/Manganese/ Zinc 1 ml/Amino Acids/Dextrose/ Purified Water 1,450.4462 ml @ 60 mls/hr [id number] IV 12/26/24 22:00 12/27/24 21:59 Cancel Ipratropium [place] 0.5 mg Q6HR NEB 12/27/24 18:00 01/20/25 18:53 0.5 MG Levalbuterol HCl 1.25 mg Q6HR NEB 12/27/24 18:00 01/20/25 18:53 1.25 MG Amino Acids 0 ml @ 0 mls/hr PER PHARMACY IV 12/27/24 12:30 Sodium Chloride 10 ml QSHIFT@10,22 IV 12/27/24 22:00 01/20/25 20:42 10 ML Artificial Tears 1 drop Q6HP PRN EACHEYE 12/29/24 23:45 01/06/25 09:00 1 DROP Meropenem 50 ml @ 17 mls/hr Q8HR IV 12/31/24 14:00 01/20/25 20:40 17 MLS/HR Ketamine HCl 50 mg [id number] PRN IV 01/04/25 15:00 01/05/25 07:00 Cancel Acetaminophen 1,000 mg [id number] PRN IV 01/05/25 04:00 01/16/25 18:18 1,000 MG Sodium Chloride 120 meq/Potassium Chloride 50 meq/ Potassium Acetate 50 meq/Calcium Gluconate 4.65 meq/Magnesium Sulfate 34 meq/ Multivitamins 10 ml/Chromium/ Copper/Manganese/ Zinc 1 ml/Amino Acids/Dextrose/ Purified Water 1,659.5 ml @ 68.108 mls/hr [id number] IV 01/09/25 22:00 01/10/25 21:59 Cancel Sodium Chloride 100 meq/Potassium Chloride 50 meq/ Calcium Gluconate 4.65 meq/ Magnesium Sulfate 34 meq/ Multivitamins 10 ml/Chromium/ Copper/Manganese/ Zinc 1 ml/Sodium Phosphate 20 meq/ Potassium Acetate 50 meq/Amino Acids/Dextrose/ Purified Water 1,659.5 ml @ 68.537 mls/hr [id number] IV 01/09/25 09:30 01/09/25 21:59 Cancel Linezolid 300 ml @ 150 mls/hr Q12H IV 01/11/25 23:00 01/20/25 22:13 150 MLS/HR Ketamine HCl 1000 mg/Sodium Chloride 500 ml @ 2.91 mls/hr Q24H IV 01/13/25 18:30 01/20/25 15:57 58.2 MLS/HR Fentanyl Citrate 250 ml @ 2.5 mls/hr Q24H IV 01/14/25 12:45 01/20/25 19:33 27.5 MLS/HR Fluconazole 100 ml @ 100 mls/hr 10,11 IV 01/16/25 10:00 01/20/25 11:05 100 MLS/HR Metoclopramide HCl 5 mg Q8HR IV 01/15/25 22:00 01/20/25 20:41 5 MG Furosemide 40 mg DAILY IV 01/17/25 10:00 01/20/25 09:20 40 MG Enteral Nutritional Formula 1,000 ml 30ML/HR GT 01/17/25 14:30 01/19/25 16:48 1,000 ML Acetylcysteine 200 mg Q6HR NEB 01/18/25 12:00 01/20/25 18:53 200 MG Labetalol HCl 10 mg Q4HPRN PRN IV 01/18/25 17:15 Heparin Sodium/ Dextrose 250 ml @ 20 mls/hr [id number] IV 01/19/25 15:30 01/20/25 16:15 20 MLS/HR Lorazepam 1 mg ONCE PRN IV 01/19/25 22:45 Thiamine HCl 100 mg DAILY IV 01/20/25 10:00 01/20/25 09:20 100 MG Folic Acid 1 mg DAILY PO 01/20/25 10:00 01/20/25 09:22 1 MG Sodium Chloride 200 meq/Sodium Acetate 20 meq/ Potassium Chloride 100 meq/ Calcium Gluconate 2.3 meq/Magnesium Sulfate 42 meq/ Multivitamins 10 ml/Chromium/ Copper/Manganese/ Zinc 1 ml/Amino Acids/Dextrose/ Purified Water 1,586.4462 ml @ 66 mls/hr Q24H3M IV 01/20/25 22:00 01/21/25 21:59 01/20/25 20:44 66 MLS/HR objective Gen.: Patient lying in bed in medical ICU. Sedated, on mechanical ventilator. S/p trach Head: Normocephalic, atraumatic. Eyes: PERRLA. Ears: Normal external anatomy. Throat: Orogastric tube in place. Neck: Trach in place. Chest: Transmitted breath sounds bilaterally. Decreased air entry bilaterally. No wheezing. Bibasilar crackles. Cardiovascular: Positive S1, positive S2. Regular rate and rhythm. Abdomen: Positive bowel sounds in all 4 quadrants. Soft, nontender, nondistended. : Navarrete in place. Normal external genitalia. Rectal: Deferred. Skin: Warm, dry. Intact. Extremities: 2+ radial pulses bilaterally. No lower extremity edema. Neuro: Sedated. laboratory and microbiology Laboratory Tests 01/20/25 03:20 Test 01/20/25 03:20 Range/Units Serum Glucose 94 74-106 mg/dL Assessment/Plan Impression: Acute hypoxic respiratory failure On mechanical ventilator S/p tracheostomy Fluid overload Sepsis S/p exploratory laparotomy Events: Remains on vent support On AC mode; RR 26, VT 400, PEEP 5, FiO2 30% Taper FiO2 as tolerated ABG reviewed, compensated. CXR shows no significant change; Persistent bilateral mixed pulmonary opacities. Small pleural effusions S/p trach Trach care per RT Wound care Pt requires multiple sedatives for vent synchrony Sedated on Versed, Propofol On Ketamine Fentanyl drip for analgesia On heparin drip. Continue antibiotics. Follow up blood cultures from PICC line due to fevers. Continue antifungal - micafungin Continue bronchodilators. NGT with bilious contents. TPN for nutritional support Antiepileptic medication Neurology recs appreciated. Labs and imaging reviewed. Rest of plan as noted below. Plan: s/p tracheostomy, on mechanical ventilator. On AC mode; RR 26, VT 400, PEEP 5, FiO2 30% Titrate FIO2 to keep O2 saturation above 90%. VAP bundle. Daily ABG and CXR while intubated Sedate for ventilator synchrony Trach care Continue antibiotics. F/u cultures. S/p colectomy. Follow up GI/Surgery recommendations Pressors as necessary for hemodynamic support. Titrate to keep MAP greater than 65 mmHg. Monitor renal function Monitor electrolytes. Supplement as necessary. Monitor ins and outs. Maintain euvolemia. TPN for nutritional support GI prophylaxis. DVT prophylaxis. Prognosis: Poor given patient's multiple co-morbidities. Condition: Critical Rest of plan per hospitalist and other consultants. A total of 35 minutes of critical care time was spent reviewing the patient record, examining the patient, making a diagnostic and therapeutic plan, discussing this plan with the medical personnel, following up on diagnostic studies and following the patient for clinical stability excluding any and all procedures. At least 50% of this time was spent in direct, [id number] contact. Thank you, Dr. Brennan, for allowing me to participate in this patient's care. Further recommendations will depend on the patient's clinical course. Please do not hesitate to contact me if you have any questions or concerns. This medical document was created using an electronic medical record system with [employer] dictation system. Although these documentations are being carefully reviewed, there may still be some phonetic and typographical changes. The errors are purely typographical, due to imperfection on the software program, and do not reflect any compromise in the patient's medical care. Dietary Evaluation Review Comments: 1. TF: Vital AF@50ml/hr (90g protein, 1440kcal 973 free water) meeting Protein needs 83%, energy needs 80%. 2. TPN per pharmacy meeting 75% of his needs if TF not feasible or NPO>7 days. 3. Diet as tolerated per [employer] eval when off Vent Expected Outcomes/Goals: Preventing catabolism Plan discussed with: Other (AISHA Hamlin) Critical Care Time(min): 35 QUINN LANDON MD Jan 20, 2025 23:37
[2025-01-21] VITALS (106 sets, daily range): BP systolic 100–164; BP diastolic 51–99; PULSE 99–142; RESP 20–37; TEMP 98.1–101.3; O2SAT 89–100
[2025-01-21 04:04] LABS: Mean Corpuscular Hemoglobin 30.2 pg (28.0-32.0); Nucleated Red Blood Cells % 0.0 %
[2025-01-21 04:07] LABS: Hematocrit 25.7 % (41.0-53.0); Hemoglobin 8.9 g/dL (13.5-17.5); Mean Corpuscular Volume 87.8 fL (80.0-100.0)
[2025-01-21 04:20] LABS: INR 1.15 (0.9-1.15); Partial Thromboplastin Time 59.8 SEC (24.5-34.5); Prothrombin Time 12.0 sec (9.3-11.8)
[2025-01-21 04:24] LABS: Alanine Aminotransferase 15 U/L (7-40); Anion Gap 9 (5-15); BUN/Creatinine Ratio 52.6 (10.0-20.0); Blood Urea Nitrogen 20 mg/dL (9-23); Calcium 8.8 mg/dL (8.7-10.4); Carbon Dioxide 28 mmol/L (20-31); Chloride 101 mmol/L (98-107); Magnesium 2.1 mg/dL (1.6-2.6); Potassium 4.1 mmol/L (3.5-5.1); Sodium 138 mmol/L (136-145); Total Protein 7.0 g/dL (5.7-8.2)
[2025-01-21 04:25] LABS: Albumin 3.6 g/dL (3.2-4.8)
[2025-01-21 04:30] LABS: Alkaline Phosphatase 201 U/L (46-116); Bilirubin, Total 0.2 mg/dL (0.2-1.0); Glucose 109 mg/dL (74-106)
--- NOTE | 2025-01-21 05:35 | DVH ---
CHEST RADIOGRAPH Indication: On mechanical ventilation via tracheostomy. Technique: Single frontal view of the chest was obtained Comparison: CHEST XRAY 1 VIEW on DOS: 01/20/25 FINDINGS: Lines and Tubes: The tracheostomy tube is unchanged. The enteric tubes course below the left hemidia phragm however the tips are excluded from the [id number]. Lungs: Patchy bilateral airspace disease. Pleura: No effusion. No pneumothorax. Cardiomediastinal contours: Cardiomegaly. Bones: No acute osseous abnormality. IMPRESSION: 1. No significant interval change. 2. Bilateral diffuse airspace disease.
[2025-01-21 06:38] LABS: Base Excess 1.4 mmol/L (-2.0-3.0)
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
--- NOTE | 2025-01-21 17:37 | DVHPN2 ---
Progress Note Date Seen: Jan 21, 2025 Resident Creating Document: SOPHIE LANDEROS RESIDENT Has the PT tested + for MRSA If YES, has PT been informed?: No Medical Necessity Reason Pt with a Central, PICC or Fol: Yes The following are medically ne: Navarrete Catheter Reason for navarrete catheter: Strict I&O Subjective Review of Systems Patient is a critically ill male 44 years old currently on mechanical ventilator support in the ICU setting, admitted with severe acute illness requiring intubation, sedation, and nutritional support. GI service is following for ongoing nutritional management, assessment of enteral tolerance, colostomy output, gastric residuals, and NG tube drainage. Todays GI-specific update: * Patient remains intubated and sedated (Versed and Fentanyl being tapered). * Trickle feeding via post-pyloric (-HOF) tube is ongoing. * NG tube suction output: ~200 mL over the past 24 hours partially bilious. * Gastric secretions are decreasing. * Colostomy output: minimal (~<100 mL/24 hrs), no gross blood, no high-output. * No new abdominal distension or signs of bowel obstruction. * No emesis or signs of aspiration. * Tolerating current feeding regimen. Objective vital signs Vital Sign Date Time Temp Pulse Resp B/P (MAP) Pulse Ox O2 Delivery O2 Flow Rate FiO2 01/21/25 16:00 99.7 114 26 122/83 (96) 99 211.5 01/21/25 16:00 30 01/21/25 14:00 Mechanical Ventilator+ Total Intake and Output 01/20/25 01/20/25 01/21/25 15:00 23:00 07:00 Intake Total 2289.2 ml 1808.2 ml 2138.8 ml Output Total 4350 ml 3025 ml Balance 2289.2 ml -2541.8 ml -886.2 ml medications Current Medications Medications Dose Ordered Sig/Sherron Route Start Time Stop Time Status Last Admin Dose Admin Pantoprazole Sodium 40 mg DAILY IV 12/18/24 10:00 01/21/25 09:17 40 MG Midazolam HCl 50 ml @ 1 mls/hr Q24H IV 12/17/24 17:00 01/21/25 08:17 13 MLS/HR Valproate Sodium 250 mg/Sodium Chloride 52.5 ml @ 52.5 mls/hr BID IV 12/17/24 22:00 01/21/25 09:19 52.5 MLS/HR Propofol 100 ml @ 2.37 mls/hr Q24H IV 12/17/24 18:15 01/21/25 17:16 23.7 MLS/HR Norepinephrine Bitartrate 250 ml @ 3.75 mls/hr Q24H IV 12/18/24 01:45 01/07/25 00:59 3.75 MLS/HR Diagnostic Test (Pha) 1 strip Q6HR 12/20/24 18:00 01/21/25 17:28 1 STRIP Insulin Human Regular FOLLOW SLIDING SCALE Q6HR SC 12/20/24 18:00 01/06/25 05:34 2 UNITS Dextrose 50 ml UD IV 12/20/24 14:15 12/20/24 17:47 50 ML Sodium Chloride 40 meq/Potassium Chloride 40 meq/ Potassium Phosphate 11 meq/ Calcium Gluconate 2.3 meq/Magnesium Sulfate 8 meq/ Multivitamins 10 ml/Chromium/ Copper/Manganese/ Zinc 1 ml/Amino Acids/Dextrose/ Purified Water 1,450.4462 ml @ 60 mls/hr [id number] IV 12/26/24 22:00 12/27/24 21:59 Cancel Ipratropium [place] 0.5 mg Q6HR NEB 12/27/24 18:00 01/21/25 10:55 0.5 MG Levalbuterol HCl 1.25 mg Q6HR NEB 12/27/24 18:00 01/21/25 10:55 1.25 MG Sodium Chloride 10 ml QSHIFT@10,22 IV 12/27/24 22:00 01/21/25 09:17 10 ML Artificial Tears 1 drop Q6HP PRN EACHEYE 12/29/24 23:45 01/06/25 09:00 1 DROP Meropenem 50 ml @ 17 mls/hr Q8HR IV 12/31/24 14:00 01/21/25 14:21 17 MLS/HR Ketamine HCl 50 mg [id number] PRN IV 01/04/25 15:00 01/05/25 07:00 Cancel Acetaminophen 1,000 mg [id number] PRN IV 01/05/25 04:00 01/16/25 18:18 1,000 MG Sodium Chloride 120 meq/Potassium Chloride 50 meq/ Potassium Acetate 50 meq/Calcium Gluconate 4.65 meq/Magnesium Sulfate 34 meq/ Multivitamins 10 ml/Chromium/ Copper/Manganese/ Zinc 1 ml/Amino Acids/Dextrose/ Purified Water 1,659.5 ml @ 68.108 mls/hr [id number] IV 01/09/25 22:00 01/10/25 21:59 Cancel Sodium Chloride 100 meq/Potassium Chloride 50 meq/ Calcium Gluconate 4.65 meq/ Magnesium Sulfate 34 meq/ Multivitamins 10 ml/Chromium/ Copper/Manganese/ Zinc 1 ml/Sodium Phosphate 20 meq/ Potassium Acetate 50 meq/Amino Acids/Dextrose/ Purified Water 1,659.5 ml @ 68.537 mls/hr [id number] IV 01/09/25 09:30 01/09/25 21:59 Cancel Linezolid 300 ml @ 150 mls/hr Q12H IV 01/11/25 23:00 01/21/25 10:45 150 MLS/HR Ketamine HCl 1000 mg/Sodium Chloride 500 ml @ 2.91 mls/hr Q24H IV 01/13/25 18:30 01/21/25 10:26 58.2 MLS/HR Fentanyl Citrate 250 ml @ 2.5 mls/hr Q24H IV 01/14/25 12:45 01/21/25 13:36 22.5 MLS/HR Fluconazole 100 ml @ 100 mls/hr 10,11 IV 01/16/25 10:00 01/21/25 10:45 100 MLS/HR Metoclopramide HCl 5 mg Q8HR IV 01/15/25 22:00 01/21/25 14:21 5 MG Furosemide 40 mg DAILY IV 01/17/25 10:00 01/21/25 09:17 40 MG Enteral Nutritional Formula 1,000 ml 30ML/HR GT 01/17/25 14:30 01/19/25 16:48 1,000 ML Acetylcysteine 200 mg Q6HR NEB 01/18/25 12:00 01/21/25 10:55 200 MG Labetalol HCl 10 mg Q4HPRN PRN IV 01/18/25 17:15 Heparin Sodium/ Dextrose 250 ml @ 20 mls/hr [id number] IV 01/19/25 15:30 01/21/25 04:51 20 MLS/HR Lorazepam 1 mg ONCE PRN IV 01/19/25 22:45 Thiamine HCl 100 mg DAILY IV 01/20/25 10:00 01/21/25 09:16 100 MG Folic Acid 1 mg DAILY PO 01/20/25 10:00 01/21/25 09:17 1 MG Examination * Abdomen: Soft, non-distended, no guarding or rebound. Colostomy site clean with minimal drainage. No erythema or leakage. NG tube in place with bilious aspirate. * Bowel sounds: Present. * Feeds: Ongoing post-pyloric trickle feeding, well tolerated. laboratory and microbiology Laboratory Tests 01/21/25 03:10 Test 01/21/25 03:10 Range/Units Serum Glucose 109 H 74-106 mg/dL Microbiology Date/Time Source Procedure Growth Status 01/19/25 11:45 Blood Blood Culture - Preliminary NO GROWTH AFTER 48 HOURS OF INCUBATION. Resulted 01/18/25 14:15 Urine - Navarrete [place] Urine Culture - Final Complete 01/18/25 10:40 Sputum Gram Stain - Final Complete 01/18/25 10:40 Sputum Respiratory Culture - Final Complete 01/05/25 08:15 Other Abscess Gram Stain - Final Complete 01/05/25 08:15 Other Abscess Anaerobic Culture - Final Complete 01/05/25 08:15 Aerobic Culture - Final Enterococcus faecium - VRE Complete 01/05/25 08:02 Peritoneal Fluid Gram Stain - Final Complete 01/05/25 08:02 Peritoneal Fluid Anaerobic Culture - Final Complete 01/05/25 08:02 Aerobic Culture - Final Enterococcus faecium - VRE Citrobacter freundii Vanc Resistant Enterococcus Complete Problem List/Assessment/Plan Problem List/Assessment/Plan Assessment 1. Postoperative status after laparotomy with colostomy and abscess drainage stable, signs of return of bowel function. 2. Enteral nutrition initiation (trickle feeds) tolerated with modest residuals; no signs of feeding intolerance or obstruction. 3. NG bile output expected in the context of early enteral feeding; continue monitoring for changes. 4. Colostomy function output stable, no ischemia or obstruction. 5. Sepsis from VRE/Citrobacter peritonitis improving on antibiotics. 6. TPN dependence continuing alongside trickle feeds. Treatment Plan Gastrointestinal * Continue trickle feeding at 10 mL/hr, reassess tolerance (residuals, abdominal exam) q12h. * Monitor NG drainage and residuals closely; aspirate if >250 mL or bilious output increases significantly. * Maintain NG tube decompression. * Continue Reglan IV q8h to aid GI motility. * Monitor colostomy output for volume, consistency, and viability. * Continue wound VAC care. Infectious Disease * Continue Meropenem, Linezolid, Fluconazole for ongoing treatment of peritonitis and abdominal sepsis. * Monitor cultures, WBC count, and temperature trends. Nutrition * Continue TPN while gradually advancing enteral feeds as tolerated. * Monitor electrolytes, albumin, and nutritional markers daily. Prophylaxis * Stress ulcer prophylaxis: Continue IV Pantoprazole. We will continue to monitor the patient. Case discussed in detail with the attending physician, including the clinical presentation, diagnostic workup, and comprehensive management plan. Plan discussed with: Other (RN) Dietary Evaluation Review Comments: 1. TF: Vital AF@50ml/hr (90g protein, 1440kcal 973 free water) meeting Protein needs 83%, energy needs 80%. 2. TPN per pharmacy meeting 75% of his needs if TF not feasible or NPO>7 days. 3. Diet as tolerated per DISASTER RESPONSE DIRECTOR eval when off Vent Expected Outcomes/Goals: Preventing catabolism SOPHIE LANDEROS RESIDENT Jan 21, 2025 17:37
[2025-01-21] MEDS: FUROSEMIDE 40 MG/4 ML VIAL IV ONE (18:08)
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
[2025-01-21] MEDS ORDERED: TPN PER PHARMACY IV NR (22:00)
[2025-01-22] VITALS (107 sets, daily range): BP systolic 113–164; BP diastolic 66–106; PULSE 110–139; RESP 10–38; TEMP 100.2–101.8; O2SAT 90–100
--- NOTE | 2025-01-22 00:37 | DVHEEG2 ---
Neurology EEG Procedural Note Procedural Note EXAM DATE: 01/21/2025 REFERRING DOCTOR: Dr. Dubois TECHNIQUE: Eighteen channels of EEG, 2 channels of EOG, and 1 channel of EKG were recorded using the International 10/20 system. CLINICAL DATA: The patient was referred for an EEG evaluation for the evidence of seizure disorder. MEDICATIONS: See the chart BACKGROUND ACTIVITY: The record showed diffuse low amplitude theta activity over both hemispheres, that was reactive to external stimuli ACTIVATION: Hyperventilation: Not done Photic Stimulation: Not done Sleep: Nonresponsiveness IMPRESSION: This is a mildly abnormal EEG, this EEG is seen in mild cerebral dysfunction due to metabolic/hypoxic encephalopathy or medication effect, please correlate clinically. The EKG channel showed a regular heart rate of 114 per minute [place] [address] DYLAN DUBOIS MD Jan 22, 2025 00:37
[2025-01-22 03:51] LABS: Hematocrit 28.8 % (41.0-53.0); Hemoglobin 9.5 g/dL (13.5-17.5); Mean Corpuscular Hemoglobin 29.0 pg (28.0-32.0); Mean Corpuscular Volume 88.0 fL (80.0-100.0); Nucleated Red Blood Cells % 0.0 %
[2025-01-22 04:03] LABS: INR 1.19 (0.9-1.15); Partial Thromboplastin Time 55.0 SEC (24.5-34.5); Prothrombin Time 12.4 sec (9.3-11.8)
[2025-01-22 04:10] LABS: Alanine Aminotransferase 17 U/L (7-40); Albumin 4.0 g/dL (3.2-4.8); Anion Gap 12 (5-15); BUN/Creatinine Ratio 43.6 (10.0-20.0); Blood Urea Nitrogen 17 mg/dL (9-23); Calcium 9.3 mg/dL (8.7-10.4); Carbon Dioxide 26 mmol/L (20-31); Glucose 104 mg/dL (74-106); Magnesium 1.9 mg/dL (1.6-2.6); Potassium 3.5 mmol/L (3.5-5.1); Sodium 136 mmol/L (136-145); Total Protein 7.9 g/dL (5.7-8.2)
[2025-01-22 04:11] LABS: Alkaline Phosphatase 215 U/L (46-116); Bilirubin, Total 0.3 mg/dL (0.2-1.0); Chloride 98 mmol/L (98-107)
--- NOTE | 2025-01-22 05:14 | DVH ---
CHEST RADIOGRAPH Indication: b/l congestion, on vent Technique: Single frontal view of the chest was obtained Comparison: XY CHEST XRAY 1 VIEW on DOS: 01/21/25, XY CHEST XRAY 1 VIEW on DOS: 01/20/25, XY CHEST XRAY 1 VIEW on DOS: 01/19/25, XY CHEST XRAY 1 VIEW on DOS: 01/18/25, XY CHEST XRAY 1 VIEW on DOS: 01/18/25, XY CH EST XRAY 1 VIEW on DOS: 01/21/25 FINDINGS: Lines and Tubes: The tracheostomy tube is unchanged. The enteric tubes course below the left hemidia phragm however the tips are excluded from the [id number]. Lungs: Patchy bilateral airspace disease. Pleura: No effusion. No pneumothorax. Cardiomediastinal contours: Cardiomegaly. Bones: No acute osseous abnormality. IMPRESSION: No significant interval change. Bilateral diffuse airspace disease.
[2025-01-22 07:31] LABS: Base Excess 4.4 mmol/L (-2.0-3.0)
[2025-01-22] MEDS: LABETALOL HCL 20 MG/4 ML VL IV PRN (08:29)
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
[2025-01-22] MEDS: ACETAMINOPHEN 650 mg PER 20.3 mL UD GT PRN (12:24)
[2025-01-22] MEDS: DEXMEDETOMIDINE HCL IN D5W 100 ML IV SCH (15:02)
--- NOTE | 2025-01-22 17:28 | DVHPN2 ---
Progress Note Date Seen: Jan 22, 2025 Resident Creating Document: SOPHIE LANDEROS RESIDENT Has the PT tested + for MRSA If YES, has PT been informed?: No Medical Necessity Reason Pt with a Central, PICC or Fol: Yes The following are medically ne: Navarrete Catheter Reason for navarrete catheter: Strict I&O Subjective Review of Systems Patient is a critically ill male 44 years old currently on mechanical ventilator support in the ICU setting, admitted with severe acute illness requiring intubation, sedation, and nutritional support. GI service is following for ongoing nutritional management, assessment of enteral tolerance, colostomy output, gastric residuals, and NG tube drainage. Todays GI-specific update: * Patient remains intubated and sedated (ketamine, propofol, Fentanyl being tapered). * Trickle feeding via post-pyloric (-HOF) tube is ongoing. * NG tube suction output: ~ minimal over the past 24 hours partially bilious. * Gastric secretions are decreasing. * Colostomy output: minimal (~ 250 mL/24 hrs), no gross blood, no high-output. * No new abdominal distension or signs of bowel obstruction. * No emesis or signs of aspiration. * Tolerating current feeding regimen Objective vital signs Vital Sign Date Time Temp Pulse Resp B/P (MAP) Pulse Ox O2 Delivery O2 Flow Rate FiO2 01/22/25 15:52 121 36 155/91 (112) 99 30 01/22/25 15:45 100.4 212.7 01/22/25 14:00 Mechanical Ventilator+ Total Intake and Output 01/21/25 01/21/25 01/22/25 15:00 23:00 07:00 Intake Total 2233.2 ml 1788.09 ml 1526.5 ml Output Total 5325 ml 4725 ml Balance 2233.2 ml -3536.91 ml -3198.5 ml medications Current Medications Medications Dose Ordered Sig/Sherron Route Start Time Stop Time Status Last Admin Dose Admin Pantoprazole Sodium 40 mg DAILY IV 12/18/24 10:00 01/22/25 08:30 40 MG Midazolam HCl 50 ml @ 1 mls/hr Q24H IV 12/17/24 17:00 01/22/25 08:10 6 MLS/HR Valproate Sodium 250 mg/Sodium Chloride 52.5 ml @ 52.5 mls/hr BID IV 12/17/24 22:00 01/22/25 09:11 52.5 MLS/HR Propofol 100 ml @ 2.37 mls/hr Q24H IV 12/17/24 18:15 01/22/25 16:02 23.7 MLS/HR Norepinephrine Bitartrate 250 ml @ 3.75 mls/hr Q24H IV 12/18/24 01:45 01/07/25 00:59 3.75 MLS/HR Diagnostic Test (Pha) 1 strip Q6HR 12/20/24 18:00 01/22/25 12:15 1 STRIP Insulin Human Regular FOLLOW SLIDING SCALE Q6HR SC 12/20/24 18:00 01/06/25 05:34 2 UNITS Dextrose 50 ml UD IV 12/20/24 14:15 12/20/24 17:47 50 ML Sodium Chloride 40 meq/Potassium Chloride 40 meq/ Potassium Phosphate 11 meq/ Calcium Gluconate 2.3 meq/Magnesium Sulfate 8 meq/ Multivitamins 10 ml/Chromium/ Copper/Manganese/ Zinc 1 ml/Amino Acids/Dextrose/ Purified Water 1,450.4462 ml @ 60 mls/hr [id number] IV 12/26/24 22:00 12/27/24 21:59 Cancel Ipratropium [place] 0.5 mg Q6HR NEB 12/27/24 18:00 01/22/25 11:33 0.5 MG Levalbuterol HCl 1.25 mg Q6HR NEB 12/27/24 18:00 01/22/25 11:33 1.25 MG Sodium Chloride 10 ml QSHIFT@10,22 IV 12/27/24 22:00 01/22/25 08:30 10 ML Artificial Tears 1 drop Q6HP PRN EACHEYE 12/29/24 23:45 01/06/25 09:00 1 DROP Meropenem 50 ml @ 17 mls/hr Q8HR IV 12/31/24 14:00 01/22/25 14:11 17 MLS/HR Ketamine HCl 50 mg [id number] PRN IV 01/04/25 15:00 01/05/25 07:00 Cancel Sodium Chloride 120 meq/Potassium Chloride 50 meq/ Potassium Acetate 50 meq/Calcium Gluconate 4.65 meq/Magnesium Sulfate 34 meq/ Multivitamins 10 ml/Chromium/ Copper/Manganese/ Zinc 1 ml/Amino Acids/Dextrose/ Purified Water 1,659.5 ml @ 68.108 mls/hr [id number] IV 01/09/25 22:00 01/10/25 21:59 Cancel Sodium Chloride 100 meq/Potassium Chloride 50 meq/ Calcium Gluconate 4.65 meq/ Magnesium Sulfate 34 meq/ Multivitamins 10 ml/Chromium/ Copper/Manganese/ Zinc 1 ml/Sodium Phosphate 20 meq/ Potassium Acetate 50 meq/Amino Acids/Dextrose/ Purified Water 1,659.5 ml @ 68.537 mls/hr [id number] IV 01/09/25 09:30 01/09/25 21:59 Cancel Linezolid 300 ml @ 150 mls/hr Q12H IV 01/11/25 23:00 01/22/25 10:29 150 MLS/HR Ketamine HCl 1000 mg/Sodium Chloride 500 ml @ 2.91 mls/hr Q24H IV 01/13/25 18:30 01/22/25 12:12 58.2 MLS/HR Fentanyl Citrate 250 ml @ 2.5 mls/hr Q24H IV 01/14/25 12:45 01/22/25 07:42 30 MLS/HR Fluconazole 100 ml @ 100 mls/hr 10,11 IV 01/16/25 10:00 01/22/25 10:29 100 MLS/HR Metoclopramide HCl 5 mg Q8HR IV 01/15/25 22:00 01/22/25 14:11 5 MG Furosemide 40 mg DAILY IV 01/17/25 10:00 01/22/25 08:29 40 MG Enteral Nutritional Formula 1,000 ml 30ML/HR GT 01/17/25 14:30 01/19/25 16:48 1,000 ML Acetylcysteine 200 mg Q6HR NEB 01/18/25 12:00 01/22/25 11:33 200 MG Labetalol HCl 10 mg Q4HPRN PRN IV 01/18/25 17:15 01/22/25 08:29 10 MG Heparin Sodium/ Dextrose 250 ml @ 20 mls/hr [id number] IV 01/19/25 15:30 01/22/25 06:26 20 MLS/HR Lorazepam 1 mg ONCE PRN IV 01/19/25 22:45 Thiamine HCl 100 mg DAILY IV 01/20/25 10:00 01/22/25 08:30 100 MG Folic Acid 1 mg DAILY PO 01/20/25 10:00 01/22/25 08:27 1 MG Acetaminophen 650 mg Q6HP PRN GT 01/22/25 10:15 01/22/25 12:24 650 MG Examination Abdomen: Soft, non-distended, no guarding or rebound. Colostomy site clean with minimal drainage. No erythema or leakage. NG tube in place with bilious aspirate. * Bowel sounds: Present. * Feeds: Ongoing post-pyloric trickle feeding, well tolerated. laboratory and microbiology Laboratory Tests 01/22/25 03:08 Test 01/22/25 03:08 Range/Units Serum Glucose 104 74-106 mg/dL Microbiology Date/Time Source Procedure Growth Status 01/19/25 11:45 Blood Blood Culture - Preliminary NO GROWTH AFTER 72 HOURS OF INCUBATION. Resulted 01/18/25 14:15 Urine - Navarrete Port Urine Culture - Final Complete 01/18/25 10:40 Sputum Gram Stain - Final Complete 01/18/25 10:40 Sputum Respiratory Culture - Final Complete 01/05/25 08:15 Other Abscess Gram Stain - Final Complete 01/05/25 08:15 Other Abscess Anaerobic Culture - Final Complete 01/05/25 08:15 Aerobic Culture - Final Enterococcus faecium - VRE Complete 01/05/25 08:02 Peritoneal Fluid Gram Stain - Final Complete 01/05/25 08:02 Peritoneal Fluid Anaerobic Culture - Final Complete 01/05/25 08:02 Aerobic Culture - Final Enterococcus faecium - VRE Citrobacter freundii Vanc Resistant Enterococcus Complete Problem List/Assessment/Plan Problem List/Assessment/Plan Assessment 1. Postoperative status after laparotomy with colostomy and abscess drainage stable, signs of return of bowel function. 2. Enteral nutrition initiation (trickle feeds) tolerated with modest residuals; no signs of feeding intolerance or obstruction. 3. NG bile output expected in the context of early enteral feeding; continue monitoring for changes. 4. Colostomy function output stable, no ischemia or obstruction. 5. Sepsis from VRE/Citrobacter peritonitis improving on antibiotics. 6. TPN dependence continuing alongside trickle feeds. Treatment Plan Gastrointestinal * Continue trickle feeding at 30 mL/hr, reassess tolerance (residuals, abdominal exam) q12h. * Monitor NG drainage and residuals closely; aspirate if >250 mL or bilious output increases significantly. * Maintain NG tube decompression. * Continue Reglan IV q8h to aid GI motility. * Monitor colostomy output for volume, consistency, and viability. * Continue wound VAC care. Infectious Disease * Continue Meropenem, Linezolid, Fluconazole for ongoing treatment of peritonitis and abdominal sepsis. * Monitor cultures, WBC count, and temperature trends. Nutrition * Continue enteral feeds as tolerated. * Monitor electrolytes, albumin, and nutritional markers daily. Prophylaxis * Stress ulcer prophylaxis: Continue IV Pantoprazole. We will continue to monitor the patient. Case discussed in detail with the attending physician, including the clinical presentation, diagnostic workup, and comprehensive management plan. Plan discussed with: Other (RN) Dietary Evaluation Review Comments: 1. TF: Vital AF@50ml/hr (90g protein, 1440kcal 973 free water) meeting Protein needs 83%, energy needs 80%. 2. TPN per pharmacy meeting 75% of his needs if TF not feasible or NPO>7 days. 3. Diet as tolerated per XEROX MACHINE OPERATOR eval when off Vent Expected Outcomes/Goals: Preventing catabolism SOPHIE LANDEROS RESIDENT Jan 22, 2025 17:28
[2025-01-22] MEDS: MICAFUNGIN SODIUM 100 MG in SODIUM CHL 0.9% 100 ML IV ONE (18:35)
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
[2025-01-23] VITALS (107 sets, daily range): BP systolic 70–167; BP diastolic 32–106; PULSE 87–143; RESP 10–43; TEMP 99–102; O2SAT 90–100
[2025-01-23] MEDS: HYDROmorphone HCL 2 MG/ML VL/or syr IV ONE (01:57)
--- NOTE | 2025-01-23 03:13 | DVH ---
CHEST RADIOGRAPH Indication: on vent, bilateral congestion Technique: 1 view Comparison: XY CHEST XRAY 1 VIEW on DOS: 01/22/25, XY CHEST XRAY 1 VIEW on DOS: 01/21/25, XY CHEST XRAY 1 VIEW on DOS: 01/20/25, XY CHEST XRAY 1 VIEW on DOS: 01/19/25, XY CHEST XRAY 1 VIEW on DOS: 01/18/25 FINDINGS: Lines and Tubes: Unchanged tracheostomy tube, 2 enteric tubes, and right upper extremity PICC. Lungs: Persistent bilateral interstitial opacities and right apical consolodation. Pleura: Small left effusion. No pneumothorax. Cardiomediastinal contours: Unchanged. Other: Unchanged. IMPRESSION: 1. No significant change from the previous day. Stable support devices.
[2025-01-23 03:34] LABS: Hematocrit 28.7 % (41.0-53.0); Hemoglobin 9.4 g/dL (13.5-17.5); Mean Corpuscular Hemoglobin 29.0 pg (28.0-32.0); Mean Corpuscular Volume 88.4 fL (80.0-100.0); Nucleated Red Blood Cells % 0.0 %
[2025-01-23 03:48] LABS: Albumin 4.0 g/dL (3.2-4.8); Anion Gap 14 (5-15); BUN/Creatinine Ratio 24.5 (10.0-20.0); Blood Urea Nitrogen 13 mg/dL (9-23); Calcium 9.3 mg/dL (8.7-10.4); Carbon Dioxide 23 mmol/L (20-31); Chloride 101 mmol/L (98-107); Sodium 138 mmol/L (136-145); Total Protein 7.8 g/dL (5.7-8.2)
[2025-01-23 03:49] LABS: Bilirubin, Total 0.6 mg/dL (0.2-1.0)
[2025-01-23 03:52] LABS: Alanine Aminotransferase 103 U/L (7-40); Alkaline Phosphatase 315 U/L (46-116); Glucose 116 mg/dL (74-106); Potassium 3.0 mmol/L (3.5-5.1)
[2025-01-23 04:03] LABS: INR 1.25 (0.9-1.15); Partial Thromboplastin Time 56.6 SEC (24.5-34.5); Prothrombin Time 13.0 sec (9.3-11.8)
[2025-01-23] MEDS: POTASSIUM CHL 20MEQ/100ML 100 ML IV SCH (06:56)
--- NOTE | 2025-01-23 08:32 | CONS ---
Pharmacy Clinical Information: HEPARIN DRIP, DVT PROTOCOL @02:52 APTT 56.6 - NO BOLUS / NO CHANGE 3 CONSECUTIVE APTT THERAPEUTIC => APTT EVERY 24 HRS NEXT APTT DRAW SCHEDULED @0500 PER RX PROTOCOL COULD NOT REACH NURSE ON THE PHONE, WILL TRY AGAIN LATER [facility] RESIDENT Jan 23, 2025 08:32
[2025-01-23 09:08] LABS: Base Excess 1.0 mmol/L (-2.0-3.0)
[2025-01-23] MEDS: MICAFUNGIN SODIUM 100 MG in SODIUM CHL 0.9% 100 ML IV SCH (09:45)
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
--- NOTE | 2025-01-23 15:17 | DVHPN2 ---
Progress Note Date Seen: Jan 23, 2025 Resident Creating Document: SOPHIE LANDEROS RESIDENT Has the PT tested + for MRSA If YES, has PT been informed?: No Medical Necessity Reason Pt with a Central, PICC or Fol: Yes The following are medically ne: Navarrete Catheter Reason for navarrete catheter: Strict I&O Subjective Review of Systems Patient is a critically ill male 44 years old currently tracheostomized on mechanical ventilator support in the ICU setting, admitted with severe acute illness requiring intubation, sedation, and nutritional support. GI service is following for ongoing nutritional management, assessment of enteral tolerance, colostomy output, gastric residuals, and NG tube drainage. Todays GI-specific update: * Patient remains intubated and sedated (ketamine, propofol, Fentanyl being tapered). * Trickle feeding via post-pyloric (-HOF) tube is ongoing at 50 mL/hour with good tolerance * NG tube suction output: ~ 200 mg over the past 24 hours partially bilious. * Gastric secretions are decreasing. * Colostomy output: minimal (~ 150mL/overnight), no gross blood, no high-output. * No new abdominal distension or signs of bowel obstruction. * No emesis or signs of aspiration. * Tolerating current feeding regimen Hemoglobin stable at 9.4, consider repeat CT abdomen in 1-2 weeks to evaluate for any resolution. WBC count rising again to 19.6 Objective vital signs Vital Sign Date Time Temp Pulse Resp B/P (MAP) Pulse Ox O2 Delivery O2 Flow Rate FiO2 01/23/25 14:30 99.5 111 10 122/65 (84) 99 211.1 01/23/25 14:00 Mechanical Ventilator+ 30 30 Total Intake and Output 01/22/25 01/22/25 01/23/25 15:00 23:00 07:00 Intake Total 1537.29 ml 1159.520 ml 4934.025 ml Output Total 2857 ml 1465 ml Balance 1537.29 ml -1697.480 ml 3469.025 ml medications Current Medications Medications Dose Ordered Sig/Sherron Route Start Time Stop Time Status Last Admin Dose Admin Pantoprazole Sodium 40 mg DAILY IV 12/18/24 10:00 01/23/25 09:41 40 MG Midazolam HCl 50 ml @ 1 mls/hr Q24H IV 12/17/24 17:00 01/23/25 09:10 3 MLS/HR Valproate Sodium 250 mg/Sodium Chloride 52.5 ml @ 52.5 mls/hr BID IV 12/17/24 22:00 01/23/25 09:43 52.5 MLS/HR Propofol 100 ml @ 2.37 mls/hr Q24H IV 12/17/24 18:15 01/23/25 09:53 23.7 MLS/HR Norepinephrine Bitartrate 250 ml @ 3.75 mls/hr Q24H IV 12/18/24 01:45 01/07/25 00:59 3.75 MLS/HR Diagnostic Test (Pha) 1 strip Q6HR 12/20/24 18:00 01/23/25 06:26 1 STRIP Insulin Human Regular FOLLOW SLIDING SCALE Q6HR SC 12/20/24 18:00 01/06/25 05:34 2 UNITS Dextrose 50 ml UD IV 12/20/24 14:15 12/20/24 17:47 50 ML Sodium Chloride 40 meq/Potassium Chloride 40 meq/ Potassium Phosphate 11 meq/ Calcium Gluconate 2.3 meq/Magnesium Sulfate 8 meq/ Multivitamins 10 ml/Chromium/ Copper/Manganese/ Zinc 1 ml/Amino Acids/Dextrose/ Purified Water 1,450.4462 ml @ 60 mls/hr [id number] IV 12/26/24 22:00 12/27/24 21:59 Cancel Ipratropium [place] 0.5 mg Q6HR NEB 12/27/24 18:00 01/23/25 11:32 0.5 MG Levalbuterol HCl 1.25 mg Q6HR NEB 12/27/24 18:00 01/23/25 11:32 1.25 MG Sodium Chloride 10 ml QSHIFT@10,22 IV 12/27/24 22:00 01/23/25 09:51 10 ML Artificial Tears 1 drop Q6HP PRN EACHEYE 12/29/24 23:45 01/06/25 09:00 1 DROP Meropenem 50 ml @ 17 mls/hr Q8HR IV 12/31/24 14:00 01/23/25 06:15 17 MLS/HR Ketamine HCl 50 mg [id number] PRN IV 01/04/25 15:00 01/05/25 07:00 Cancel Sodium Chloride 120 meq/Potassium Chloride 50 meq/ Potassium Acetate 50 meq/Calcium Gluconate 4.65 meq/Magnesium Sulfate 34 meq/ Multivitamins 10 ml/Chromium/ Copper/Manganese/ Zinc 1 ml/Amino Acids/Dextrose/ Purified Water 1,659.5 ml @ 68.108 mls/hr [id number] IV 01/09/25 22:00 01/10/25 21:59 Cancel Sodium Chloride 100 meq/Potassium Chloride 50 meq/ Calcium Gluconate 4.65 meq/ Magnesium Sulfate 34 meq/ Multivitamins 10 ml/Chromium/ Copper/Manganese/ Zinc 1 ml/Sodium Phosphate 20 meq/ Potassium Acetate 50 meq/Amino Acids/Dextrose/ Purified Water 1,659.5 ml @ 68.537 mls/hr [id number] IV 01/09/25 09:30 01/09/25 21:59 Cancel Linezolid 300 ml @ 150 mls/hr Q12H IV 01/11/25 23:00 01/23/25 11:35 150 MLS/HR Ketamine HCl 1000 mg/Sodium Chloride 500 ml @ 2.91 mls/hr Q24H IV 01/13/25 18:30 01/22/25 23:19 40.74 MLS/HR Fentanyl Citrate 250 ml @ 2.5 mls/hr Q24H IV 01/14/25 12:45 01/23/25 07:16 30 MLS/HR Metoclopramide HCl 5 mg Q8HR IV 01/15/25 22:00 01/23/25 06:15 5 MG Furosemide 40 mg DAILY IV 01/17/25 10:00 01/23/25 09:42 40 MG Acetylcysteine 200 mg Q6HR NEB 01/18/25 12:00 01/23/25 11:32 200 MG Labetalol HCl 10 mg Q4HPRN PRN IV 01/18/25 17:15 01/22/25 17:23 10 MG Heparin Sodium/ Dextrose 250 ml @ 20 mls/hr [id number] IV 01/19/25 15:30 01/23/25 06:14 20 MLS/HR Lorazepam 1 mg ONCE PRN IV 01/19/25 22:45 Thiamine HCl 100 mg DAILY IV 01/20/25 10:00 01/23/25 09:42 100 MG Folic Acid 1 mg DAILY PO 01/20/25 10:00 01/23/25 09:43 1 MG Acetaminophen 650 mg Q6HP PRN GT 01/22/25 10:15 01/23/25 10:30 650 MG Micafungin Sodium 100 mg/Sodium Chloride 100 ml @ 100 mls/hr DAILY IV 01/23/25 10:00 01/23/25 09:45 100 MLS/HR Enteral Nutritional Formula 1,000 ml 50ML/HR GT 01/23/25 13:00 Examination Abdomen: Soft, non-distended, no guarding or rebound. Colostomy site clean with minimal drainage. No erythema or leakage. NG tube in place with bilious aspirate. * Bowel sounds: Present. * Feeds: Ongoing post-pyloric trickle feeding, well tolerated. laboratory and microbiology Laboratory Tests 01/23/25 02:52 Test 01/23/25 02:52 Range/Units Serum Glucose 116 H 74-106 mg/dL Microbiology Date/Time Source Procedure Growth Status 01/19/25 11:45 Blood Blood Culture - Preliminary NO GROWTH AFTER 72 HOURS OF INCUBATION. Resulted 01/18/25 14:15 Urine - Navarrete [place] Urine Culture - Final Complete 01/18/25 10:40 Sputum Gram Stain - Final Complete 01/18/25 10:40 Sputum Respiratory Culture - Final Complete 01/05/25 08:15 Other Abscess Gram Stain - Final Complete 01/05/25 08:15 Other Abscess Anaerobic Culture - Final Complete 01/05/25 08:15 Aerobic Culture - Final Enterococcus faecium - VRE Complete 01/05/25 08:02 Peritoneal Fluid Gram Stain - Final Complete 01/05/25 08:02 Peritoneal Fluid Anaerobic Culture - Final Complete 01/05/25 08:02 Aerobic Culture - Final Enterococcus faecium - VRE Citrobacter freundii Vanc Resistant Enterococcus Complete Problem List/Assessment/Plan Problem List/Assessment/Plan Assessment 1. Postoperative status after laparotomy with colostomy and abscess drainage stable, signs of return of bowel function. 2. Enteral nutrition initiation (trickle feeds) tolerated with modest residuals; no signs of feeding intolerance or obstruction. 3. NG bile output expected in the context of early enteral feeding; continue monitoring for changes. 4. Colostomy function output stable, no ischemia or obstruction. 5. Sepsis from VRE/Citrobacter peritonitis improving on antibiotics. 6. TPN dependence continuing alongside trickle feeds. Treatment Plan Gastrointestinal * Continue trickle feeding at 50mL/hr, reassess tolerance (residuals, abdominal exam) q12h. * Monitor NG drainage and residuals closely; aspirate if >250 mL or bilious output increases significantly. * Maintain NG tube decompression. * Continue Reglan IV q8h to aid GI motility. * Monitor colostomy output for volume, consistency, and viability. * Continue wound VAC care. Infectious Disease * Continue Meropenem, Linezolid, Fluconazole for ongoing treatment of peritonitis and abdominal sepsis. * Monitor cultures, WBC count, and temperature trends. Nutrition * Continue enteral feeds as tolerated. * Monitor electrolytes, albumin, and nutritional markers daily. Prophylaxis * Stress ulcer prophylaxis: Continue IV Pantoprazole. We will continue to monitor the patient. Case discussed in detail with the attending physician, including the clinical presentation, diagnostic workup, and comprehensive management plan. Plan discussed with: Other (RN) Dietary Evaluation Review Comments: 1. TF: Vital AF@50ml/hr (90g protein, 1440kcal 973 free water) meeting Protein needs 83%, energy needs 80%. 2. TPN per pharmacy meeting 75% of his needs if TF not feasible or NPO>7 days. 3. Diet as tolerated per [employer] eval when off Vent Expected Outcomes/Goals: Preventing catabolism SOPHIE LANDEROS RESIDENT Jan 23, 2025 15:17
[2025-01-23] MEDS: fentaNYL 50MCG/HR 50 MCG/HR PAT TD SCH (17:14)
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
[2025-01-23] MEDS: Vital AF 1.2 Cal 1 liter bottle GT SCH (22:34)
[2025-01-24] VITALS (107 sets, daily range): BP systolic 70–161; BP diastolic 32–111; PULSE 83–139; RESP 0–42; TEMP 97.3–101.3; O2SAT 94–100
[2025-01-24 03:06] LABS: Hematocrit 25.5 % (41.0-53.0); Hemoglobin 8.7 g/dL (13.5-17.5); Mean Corpuscular Hemoglobin 29.7 pg (28.0-32.0); Mean Corpuscular Volume 87.3 fL (80.0-100.0); Nucleated Red Blood Cells % 0.1 %
[2025-01-24 03:18] LABS: Albumin 3.7 g/dL (3.2-4.8); Anion Gap 11 (5-15); BUN/Creatinine Ratio 26.7 (10.0-20.0); Bilirubin, Total 0.3 mg/dL (0.2-1.0); Blood Urea Nitrogen 12 mg/dL (9-23); Calcium 8.8 mg/dL (8.7-10.4); Carbon Dioxide 26 mmol/L (20-31); Chloride 101 mmol/L (98-107); Sodium 138 mmol/L (136-145); Total Protein 7.2 g/dL (5.7-8.2)
[2025-01-24 03:20] LABS: INR 1.19 (0.9-1.15); Partial Thromboplastin Time 62.6 SEC (24.5-34.5); Prothrombin Time 12.4 sec (9.3-11.8)
[2025-01-24 03:27] LABS: Alanine Aminotransferase 54 U/L (7-40); Alkaline Phosphatase 211 U/L (46-116); Glucose 107 mg/dL (74-106); Potassium 2.7 mmol/L (3.5-5.1)
--- NOTE | 2025-01-24 05:49 | DVH ---
CHEST RADIOGRAPH Indication: on vent Technique: Single frontal view of the chest was obtained COMPARISON: XY CHEST XRAY 1 VIEW on DOS: 01/23/25, XY CHEST XRAY 1 VIEW on DOS: 01/22/25, XY CHEST XRAY 1 VIEW on DOS: 01/21/25, XY CHEST XRAY 1 VIEW on DOS: 01/20/25, XY CHEST XRAY 1 VIEW on DOS: 01/19/25 FINDINGS: Lines and Tubes: Tracheostomy tube, enteric catheter and right PICC in satisfactory position Lungs: Congestion Pleura: No effusion. No pneumothorax. Cardiomediastinal contours: Unremarkable Bones: Unremarkable IMPRESSION: Lines and tubes in satisfactory position. No significant interval change.
[2025-01-24] MEDS: POTASSIUM CHL 20MEQ/100ML 100 ML IV SCH (05:52)
[2025-01-24 07:54] LABS: Base Excess 0.3 mmol/L (-2.0-3.0)
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
--- NOTE | 2025-01-24 12:21 | DVHPN2 ---
Progress Note Date Seen: Jan 24, 2025 Resident Creating Document: SOPHIE LNADEROS RESIDENT Has the PT tested + for MRSA If YES, has PT been informed?: No Medical Necessity Reason Pt with a Central, PICC or Fol: Yes The following are medically ne: Navarrete Catheter Reason for navarrete catheter: Strict I&O Subjective Review of Systems TODAY'S PROGRESS The patient remains in ICU, intubated, sedated on ketamine, propofol, fentanyl, midazolam and hemodynamically fragility. The patient was unable to undergo a scheduled CT abdomen today due to ongoing clinical instability. However there was no acute abdominal changes on exam. Enteral feeding continue to be tolerated with minimal gastric residues and stable colostomy output. NG tube output less than 100 mL over the 24 hours. Post pyloric feeds with trickle feeds tolerated without signs of intolerance. Colostomy output is 75 mL over the 24 hours, semi formed. SHIRLENE drain output 10 mL, serosanguineous. LFT remain elevated but are trending down, likely due to shock liver. WBC count is elevated and known to be fluctuating. Hemoglobin and hematocrit are trending down but no overt GI bleeding. PT INR APTT are elevated. Platelets are trending down but remain elevated at [id number] Pathology report from laparotomy revealed fibrinous exudate involving peritoneum and bowel wall, fibro adipose tissue with acute and chronic inflammation, focal foreign body type giant cell reaction, fragments of fibrin consistent with severe peritonitis. Try to do a follow-up CT scan of the abdomen if the patient is stable and compliant. Objective vital signs Vital Sign Date Time Temp Pulse Resp B/P (MAP) Pulse Ox O2 Delivery O2 Flow Rate FiO2 01/24/25 11:33 119/67 01/24/25 10:30 99.5 118 21 97 211.1 01/24/25 10:00 Mechanical Ventilator+ 30 30 Total Intake and Output 01/23/25 01/23/25 01/24/25 15:00 23:00 07:00 Intake Total 1118.085 ml 1479.430 ml 1818.150 ml Output Total 2055 ml 1635 ml Balance 1118.085 ml -575.570 ml 183.150 ml medications Current Medications Medications Dose Ordered Sig/Sherron Route Start Time Stop Time Status Last Admin Dose Admin Pantoprazole Sodium 40 mg DAILY IV 12/18/24 10:00 01/24/25 08:54 40 MG Midazolam HCl 50 ml @ 1 mls/hr Q24H IV 12/17/24 17:00 01/24/25 11:27 9 MLS/HR Valproate Sodium 250 mg/Sodium Chloride 52.5 ml @ 52.5 mls/hr BID IV 12/17/24 22:00 01/24/25 08:54 52.5 MLS/HR Propofol 100 ml @ 2.37 mls/hr Q24H IV 12/17/24 18:15 01/24/25 10:42 23.7 MLS/HR Norepinephrine Bitartrate 250 ml @ 3.75 mls/hr Q24H IV 12/18/24 01:45 01/07/25 00:59 3.75 MLS/HR Diagnostic Test (Pha) 1 strip Q6HR 12/20/24 18:00 01/24/25 11:52 1 STRIP Insulin Human Regular FOLLOW SLIDING SCALE Q6HR SC 12/20/24 18:00 01/06/25 05:34 2 UNITS Dextrose 50 ml UD IV 12/20/24 14:15 12/20/24 17:47 50 ML Sodium Chloride 40 meq/Potassium Chloride 40 meq/ Potassium Phosphate 11 meq/ Calcium Gluconate 2.3 meq/Magnesium Sulfate 8 meq/ Multivitamins 10 ml/Chromium/ Copper/Manganese/ Zinc 1 ml/Amino Acids/Dextrose/ Purified Water 1,450.4462 ml @ 60 mls/hr [id number] IV 12/26/24 22:00 12/27/24 21:59 Cancel Ipratropium [place] 0.5 mg Q6HR NEB 12/27/24 18:00 01/24/25 06:16 0.5 MG Levalbuterol HCl 1.25 mg Q6HR NEB 12/27/24 18:00 01/24/25 06:16 1.25 MG Sodium Chloride 10 ml QSHIFT@10,22 IV 12/27/24 22:00 01/24/25 08:55 10 ML Artificial Tears 1 drop Q6HP PRN EACHEYE 12/29/24 23:45 01/06/25 09:00 1 DROP Meropenem 50 ml @ 17 mls/hr Q8HR IV 12/31/24 14:00 01/24/25 05:49 17 MLS/HR Ketamine HCl 50 mg [id number] PRN IV 01/04/25 15:00 01/05/25 07:00 Cancel Sodium Chloride 120 meq/Potassium Chloride 50 meq/ Potassium Acetate 50 meq/Calcium Gluconate 4.65 meq/Magnesium Sulfate 34 meq/ Multivitamins 10 ml/Chromium/ Copper/Manganese/ Zinc 1 ml/Amino Acids/Dextrose/ Purified Water 1,659.5 ml @ 68.108 mls/hr [id number] IV 01/09/25 22:00 01/10/25 21:59 Cancel Sodium Chloride 100 meq/Potassium Chloride 50 meq/ Calcium Gluconate 4.65 meq/ Magnesium Sulfate 34 meq/ Multivitamins 10 ml/Chromium/ Copper/Manganese/ Zinc 1 ml/Sodium Phosphate 20 meq/ Potassium Acetate 50 meq/Amino Acids/Dextrose/ Purified Water 1,659.5 ml @ 68.537 mls/hr [id number] IV 01/09/25 09:30 01/09/25 21:59 Cancel Linezolid 300 ml @ 150 mls/hr Q12H IV 01/11/25 23:00 01/24/25 11:33 150 MLS/HR Ketamine HCl 1000 mg/Sodium Chloride 500 ml @ 2.91 mls/hr Q24H IV 01/13/25 18:30 01/24/25 07:43 36.375 MLS/HR Fentanyl Citrate 250 ml @ 2.5 mls/hr Q24H IV 01/14/25 12:45 01/24/25 07:41 30 MLS/HR Acetylcysteine 200 mg Q6HR NEB 01/18/25 12:00 01/24/25 06:16 200 MG Labetalol HCl 10 mg Q4HPRN PRN IV 01/18/25 17:15 01/22/25 17:23 10 MG Heparin Sodium/ Dextrose 250 ml @ 20 mls/hr [id number] IV 01/19/25 15:30 01/24/25 08:35 20 MLS/HR Lorazepam 1 mg ONCE PRN IV 01/19/25 22:45 Thiamine HCl 100 mg DAILY IV 01/20/25 10:00 01/24/25 08:54 100 MG Folic Acid 1 mg DAILY PO 01/20/25 10:00 01/24/25 08:55 1 MG Acetaminophen 650 mg Q6HP PRN GT 01/22/25 10:15 01/24/25 03:28 650 MG Micafungin Sodium 100 mg/Sodium Chloride 100 ml @ 100 mls/hr DAILY IV 01/23/25 10:00 01/24/25 08:54 100 MLS/HR Enteral Nutritional Formula 1,000 ml 50ML/HR GT 01/23/25 13:00 01/23/25 22:34 1,000 ML Fentanyl 50 mcg Q72H TD 01/23/25 17:00 01/23/25 17:14 50 MCG Examination Abdomen: Soft, non-distended, no guarding or rebound. Colostomy site clean with minimal drainage. No erythema or leakage. NG tube in place with bilious aspirate. * Bowel sounds: Present. * Feeds: Ongoing post-pyloric trickle feeding, well tolerated. laboratory and microbiology Laboratory Tests 01/24/25 02:27 Test 01/24/25 02:27 Range/Units Serum Glucose 107 H 74-106 mg/dL Microbiology Date/Time Source Procedure Growth Status 01/22/25 18:44 Blood Blood Culture - Preliminary NO GROWTH AFTER 24 HOURS OF INCUBATION. Resulted 01/18/25 14:15 Urine - Navarrete Port Urine Culture - Final Complete 01/18/25 10:40 Sputum Gram Stain - Final Complete 01/18/25 10:40 Sputum Respiratory Culture - Final Complete 01/05/25 08:15 Other Abscess Gram Stain - Final Complete 01/05/25 08:15 Other Abscess Anaerobic Culture - Final Complete 01/05/25 08:15 Aerobic Culture - Final Enterococcus faecium - VRE Complete 01/05/25 08:02 Peritoneal Fluid Gram Stain - Final Complete 01/05/25 08:02 Peritoneal Fluid Anaerobic Culture - Final Complete 01/05/25 08:02 Aerobic Culture - Final Enterococcus faecium - VRE Citrobacter freundii Vanc Resistant Enterococcus Complete Problem List/Assessment/Plan Problem List/Assessment/Plan Assessment 1. Postoperative status after laparotomy with colostomy and abscess drainage stable, signs of return of bowel function. 2. Enteral nutrition initiation (trickle feeds) tolerated with modest residuals; no signs of feeding intolerance or obstruction. 3. NG bile output expected in the context of early enteral feeding; continue monitoring for changes. 4. Colostomy function output stable, no ischemia or obstruction. 5. Sepsis from VRE/Citrobacter peritonitis improving on antibiotics. 6. TPN dependence continuing alongside trickle feeds. Treatment Plan Gastrointestinal * Continue trickle feeding at 50mL/hr, reassess tolerance (residuals, abdominal exam) q12h. * Monitor NG drainage and residuals closely; aspirate if >250 mL or bilious output increases significantly. * Maintain NG tube decompression. * Continue Reglan IV q8h to aid GI motility. * Monitor colostomy output for volume, consistency, and viability. * Continue wound VAC care. Infectious Disease * Continue Meropenem, Linezolid, Fluconazole for ongoing treatment of peritonitis and abdominal sepsis. * Monitor cultures, WBC count, and temperature trends. Nutrition * Continue enteral feeds as tolerated. * Monitor electrolytes, albumin, and nutritional markers daily. Prophylaxis * Stress ulcer prophylaxis: Continue IV Pantoprazole. We will continue to monitor the patient. Case discussed in detail with the attending physician, including the clinical presentation, diagnostic workup, and comprehensive management plan. Plan discussed with: Other (RN) Dietary Evaluation Review Comments: 1. TF: Vital AF@50ml/hr (90g protein, 1440kcal 973 free water) meeting Protein needs 83%, energy needs 80%. 2. TPN per pharmacy meeting 75% of his needs if TF not feasible or NPO>7 days. 3. Diet as tolerated per [employer] eval when off Vent Expected Outcomes/Goals: Preventing catabolism SOPHIE LANDEROS RESIDENT Jan 24, 2025 12:21
[2025-01-24] MEDS: FUROSEMIDE 40 MG/4 ML VIAL IV ONE (13:14)
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
[2025-01-25] VITALS (106 sets, daily range): BP systolic 84–153; BP diastolic 39–89; PULSE 84–132; RESP 11–36; TEMP 97.9–99.1; O2SAT 92–100
[2025-01-25 03:46] LABS: Hemoglobin 9.5 g/dL (13.5-17.5); Mean Corpuscular Hemoglobin 29.9 pg (28.0-32.0); Nucleated Red Blood Cells % 0.0 %
[2025-01-25 03:53] LABS: Hematocrit 27.8 % (41.0-53.0); Mean Corpuscular Volume 87.3 fL (80.0-100.0)
[2025-01-25 04:01] LABS: INR 1.16 (0.9-1.15); Partial Thromboplastin Time 67.5 SEC (24.5-34.5); Prothrombin Time 12.1 sec (9.3-11.8)
[2025-01-25 04:12] LABS: Alanine Aminotransferase 34 U/L (7-40); Albumin 3.5 g/dL (3.2-4.8); Anion Gap 12 (5-15); BUN/Creatinine Ratio 26.5 (10.0-20.0); Blood Urea Nitrogen 13 mg/dL (9-23); Calcium 9.3 mg/dL (8.7-10.4); Carbon Dioxide 25 mmol/L (20-31); Chloride 100 mmol/L (98-107); Sodium 137 mmol/L (136-145); Total Protein 6.8 g/dL (5.7-8.2)
[2025-01-25 04:14] LABS: Alkaline Phosphatase 159 U/L (46-116); Bilirubin, Total 0.2 mg/dL (0.2-1.0); Glucose 110 mg/dL (74-106); Potassium 3.2 mmol/L (3.5-5.1)
--- NOTE | 2025-01-25 05:38 | DVH ---
CHEST RADIOGRAPH Indication: b/l congestion Technique: 1 view Comparison: XY CHEST XRAY 1 VIEW on DOS: 01/24/25, XY CHEST XRAY 1 VIEW on DOS: 01/23/25, XY CHEST XRAY 1 VIEW on DOS: 01/22/25, XY CHEST XRAY 1 VIEW on DOS: 01/21/25, XY CHEST XRAY 1 VIEW on DOS: 01/20/25 FINDINGS: Lines and Tubes: Unchanged tracheostomy tube, 2 enteric tubes, and right upper extremity PICC. Lungs: Persistent right worse than left mixed pulmonary opacities, with some improved aeration in the left lung. Pleura: Unchanged small left pleural effusion. Cardiomediastinal contours: Unchanged. Other: No acute osseous abnormality. IMPRESSION: 1. Mildly improved left lung aeration. No other significant change from the prior day.
[2025-01-25] MEDS: POTASSIUM CHL 20MEQ/100ML 100 ML IV SCH ×2 (05:39→20:56)
[2025-01-25 08:03] LABS: Base Excess 0.3 mmol/L (-2.0-3.0)
[2025-01-25] MEDS: FUROSEMIDE 40 MG/4 ML VIAL IV SCH (09:38)
[2025-01-25] MEDS: LIDOCAINE 1% HCL (LOCAL ANESTH.) INJ 20ML MDV ONE (12:35)
[2025-01-25] MEDS: IOHEXOL 300 MG/ML 100ML BOTTLE IJ ONE ×2 (15:06→15:42)
--- NOTE | 2025-01-25 16:30 | DVHPN2 ---
Progress Note Date Seen: Jan 25, 2025 Resident Creating Document: SOPHIE LANDEROS RESIDENT Has the PT tested + for MRSA If YES, has PT been informed?: No Medical Necessity Reason Pt with a Central, PICC or Fol: Yes The following are medically ne: Navarrete Catheter Reason for navarrete catheter: Strict I&O Medical Necessity Reason Today GI specific updates NG tube output 100 mL over 24 hours, bolus Colostomy output 100 mL over 24 hours, semi formed stool. Bowel movements present Enteral feedings via post pyloric trickle feeds, tolerating without any significant residual. SHIRLENE drain output as per prior minimal CT abdomen and pelvis performed today for follow-up of intra-abdominal collections the findings are Trace ascites with loculated component in the anterior lower abdomen, left lateral abdomen measuring 6.1 in 21.5 in 211 cm. Localized fluid collection over the left upper abdominal quadrant lateral to the spleen which drains terminating in inferior collection, collection size marginally decreased from prior imaging. Mild distal rectal wall thickening differentials include proctitis versus neoplasm, needs correlation with clinical context Mild nonspecific gallbladder wall thickening likely related to trace ascites. Slight prominent retroperitoneal lymph nodes up to 1.1 cm possibly reactive. Postsurgical changes of the periumbilical region. No destructive osseous lesion. Objective vital signs Vital Sign Date Time Temp Pulse Resp B/P (MAP) Pulse Ox O2 Delivery O2 Flow Rate FiO2 01/25/25 16:15 98.2 97 26 140/76 (97) 98 208.8 01/25/25 16:00 Mechanical Ventilator+ 30 30 Total Intake and Output 01/24/25 01/24/25 01/25/25 15:00 23:00 07:00 Intake Total 1768.205 ml 1440.445 ml 1643.68 ml Output Total 1655 ml 790 ml Balance 1768.205 ml -214.555 ml 853.68 ml medications Current Medications Medications Dose Ordered Sig/Sherron Route Start Time Stop Time Status Last Admin Dose Admin Pantoprazole Sodium 40 mg DAILY IV 12/18/24 10:00 01/25/25 09:37 40 MG Midazolam HCl 50 ml @ 1 mls/hr Q24H IV 12/17/24 17:00 01/25/25 15:47 15 MLS/HR Valproate Sodium 250 mg/Sodium Chloride 52.5 ml @ 52.5 mls/hr BID IV 12/17/24 22:00 01/25/25 09:52 52.5 MLS/HR Propofol 100 ml @ 2.37 mls/hr Q24H IV 12/17/24 18:15 01/25/25 13:30 23.7 MLS/HR Norepinephrine Bitartrate 250 ml @ 3.75 mls/hr Q24H IV 12/18/24 01:45 01/24/25 15:10 3.75 MLS/HR Diagnostic Test (Pha) 1 strip Q6HR 12/20/24 18:00 01/25/25 12:13 1 STRIP Insulin Human Regular FOLLOW SLIDING SCALE Q6HR SC 12/20/24 18:00 01/06/25 05:34 2 UNITS Dextrose 50 ml UD IV 12/20/24 14:15 12/20/24 17:47 50 ML Sodium Chloride 40 meq/Potassium Chloride 40 meq/ Potassium Phosphate 11 meq/ Calcium Gluconate 2.3 meq/Magnesium Sulfate 8 meq/ Multivitamins 10 ml/Chromium/ Copper/Manganese/ Zinc 1 ml/Amino Acids/Dextrose/ Purified Water 1,450.4462 ml @ 60 mls/hr [id number] IV 12/26/24 22:00 12/27/24 21:59 Cancel Ipratropium [place] 0.5 mg Q6HR NEB 12/27/24 18:00 01/25/25 12:03 0.5 MG Levalbuterol HCl 1.25 mg Q6HR NEB 12/27/24 18:00 01/25/25 12:03 1.25 MG Sodium Chloride 10 ml QSHIFT@10,22 IV 12/27/24 22:00 01/25/25 09:58 10 ML Artificial Tears 1 drop Q6HP PRN EACHEYE 12/29/24 23:45 01/06/25 09:00 1 DROP Meropenem 50 ml @ 17 mls/hr Q8HR IV 12/31/24 14:00 01/25/25 05:42 17 MLS/HR Ketamine HCl 50 mg [id number] PRN IV 01/04/25 15:00 01/05/25 07:00 Cancel Sodium Chloride 120 meq/Potassium Chloride 50 meq/ Potassium Acetate 50 meq/Calcium Gluconate 4.65 meq/Magnesium Sulfate 34 meq/ Multivitamins 10 ml/Chromium/ Copper/Manganese/ Zinc 1 ml/Amino Acids/Dextrose/ Purified Water 1,659.5 ml @ 68.108 mls/hr [id number] IV 01/09/25 22:00 01/10/25 21:59 Cancel Sodium Chloride 100 meq/Potassium Chloride 50 meq/ Calcium Gluconate 4.65 meq/ Magnesium Sulfate 34 meq/ Multivitamins 10 ml/Chromium/ Copper/Manganese/ Zinc 1 ml/Sodium Phosphate 20 meq/ Potassium Acetate 50 meq/Amino Acids/Dextrose/ Purified Water 1,659.5 ml @ 68.537 mls/hr [id number] IV 01/09/25 09:30 01/09/25 21:59 Cancel Linezolid 300 ml @ 150 mls/hr Q12H IV 01/11/25 23:00 01/25/25 11:00 150 MLS/HR Ketamine HCl 1000 mg/Sodium Chloride 500 ml @ 2.91 mls/hr Q24H IV 01/13/25 18:30 01/25/25 15:48 40.74 MLS/HR Fentanyl Citrate 250 ml @ 2.5 mls/hr Q24H IV 01/14/25 12:45 01/25/25 13:31 35 MLS/HR Acetylcysteine 200 mg Q6HR NEB 01/18/25 12:00 01/25/25 12:03 200 MG Labetalol HCl 10 mg Q4HPRN PRN IV 01/18/25 17:15 01/22/25 17:23 10 MG Heparin Sodium/ Dextrose 250 ml @ 20 mls/hr [id number] IV 01/19/25 15:30 01/25/25 09:56 20 MLS/HR Lorazepam 1 mg ONCE PRN IV 01/19/25 22:45 Thiamine HCl 100 mg DAILY IV 01/20/25 10:00 01/25/25 09:37 100 MG Folic Acid 1 mg DAILY PO 01/20/25 10:00 01/25/25 09:58 1 MG Acetaminophen 650 mg Q6HP PRN GT 01/22/25 10:15 01/24/25 03:28 650 MG Micafungin Sodium 100 mg/Sodium Chloride 100 ml @ 100 mls/hr DAILY IV 01/23/25 10:00 01/25/25 09:58 100 MLS/HR Enteral Nutritional Formula 1,000 ml 50ML/HR GT 01/23/25 13:00 01/23/25 22:34 1,000 ML Fentanyl 50 mcg Q72H TD 01/23/25 17:00 01/23/25 17:14 50 MCG Furosemide 40 mg DAILY IV 01/25/25 10:00 01/25/25 09:38 40 MG Examination Abdomen: Soft, non-distended, no guarding or rebound. Colostomy site clean with minimal drainage. No erythema or leakage. NG tube in place with bilious aspirate. * Bowel sounds: Present. * Feeds: Ongoing post-pyloric trickle feeding, well tolerated. laboratory and microbiology Laboratory Tests 01/25/25 13:00 01/25/25 03:13 Test 01/25/25 03:13 Range/Units Serum Glucose 110 H 74-106 mg/dL Microbiology Date/Time Source Procedure Growth Status 01/22/25 18:44 Blood Blood Culture - Preliminary NO GROWTH AFTER 48 HOURS OF INCUBATION. Resulted 01/18/25 14:15 Urine - Navarrete Port Urine Culture - Final Complete 01/18/25 10:40 Sputum Gram Stain - Final Complete 01/18/25 10:40 Sputum Respiratory Culture - Final Complete 01/05/25 08:15 Other Abscess Gram Stain - Final Complete 01/05/25 08:15 Other Abscess Anaerobic Culture - Final Complete 01/05/25 08:15 Aerobic Culture - Final Enterococcus faecium - VRE Complete 01/05/25 08:02 Peritoneal Fluid Gram Stain - Final Complete 01/05/25 08:02 Peritoneal Fluid Anaerobic Culture - Final Complete 01/05/25 08:02 Aerobic Culture - Final Enterococcus faecium - VRE Citrobacter freundii Vanc Resistant Enterococcus Complete Problem List/Assessment/Plan Problem List/Assessment/Plan Assessment 1. Postoperative status after laparotomy with colostomy and abscess drainage stable, signs of return of bowel function. 2. Enteral nutrition initiation (trickle feeds) tolerated with modest residuals; no signs of feeding intolerance or obstruction. 3. NG bile output expected in the context of early enteral feeding; continue monitoring for changes. 4. Colostomy function output stable, no ischemia or obstruction. 5. Sepsis from VRE/Citrobacter peritonitis improving on antibiotics. 6. TPN dependence continuing alongside trickle feeds. Treatment Plan Gastrointestinal * Continue trickle feeding at 50mL/hr, reassess tolerance (residuals, abdominal exam) q12h. * Monitor NG drainage and residuals closely; aspirate if >250 mL or bilious output increases significantly. * Maintain NG tube decompression. * Continue Reglan IV q8h to aid GI motility. * Monitor colostomy output for volume, consistency, and viability. * Continue wound VAC care. Infectious Disease * Continue Meropenem, Linezolid, Fluconazole for ongoing treatment of peritonitis and abdominal sepsis. * Monitor cultures, WBC count, and temperature trends. Nutrition * Continue enteral feeds as tolerated. * Monitor electrolytes, albumin, and nutritional markers daily. Prophylaxis * Stress ulcer prophylaxis: Continue IV Pantoprazole. We will continue to monitor the patient. Case discussed in detail with the attending physician, including the clinical presentation, diagnostic workup, and comprehensive management plan. Plan discussed with: Other (RN) Dietary Evaluation Review Comments: 1. TF: Vital AF@50ml/hr (90g protein, 1440kcal 973 free water) meeting Protein needs 83%, energy needs 80%. 2. TPN per pharmacy meeting 75% of his needs if TF not feasible or NPO>7 days. 3. Diet as tolerated per PROCESS CONTROL SPECIALIST evvilma when off Vent Expected Outcomes/Goals: Preventing catabolism SOPHIE LANDEROS RESIDENT Jan 25, 2025 16:30
--- NOTE | 2025-01-25 16:46 | DVH ---
Exam: CT CT AB PEL WITH IV CON ONLY History: ABD ABSCESS Comparison Study: CT CT AB PELVIS W WO CON-IV ONLY on DOS: 12/31/24, CT CT ABD PELVIS W CON-ORAL IV on DOS: 12/20/24, CT CT CHEST/AB/PL W CON- IV ONLY on DOS: 12/17/24 TECHNIQUE: Multidetector CT of the abdomen and pelvis with IV contrast. Axial, coronal and sagittal m ultiplanar reformats were obtained from the axial data set by the technologist. Radiation Dose Information: CT Dose: CTDI volume is 19.81 mGy. Dose-length product is 3.92 mGy*cm FINDINGS: Small right with Small to moderate left-sided pleural effusions and bibasilar opacities. Mild cardiom egaly. Mild hepatomegaly. Otherwise, liver, spleen, pancreas and adrenal glands unremarkable. Mild wall thic kening of the gallbladder with no evidence of cholelithiasis. Kidneys and ureters unremarkable. Martinez catheter is noted in place. Focus of air within the urinary bladder which is most likely iatrogenic. Mild wall thickening of the urinary bladder which may be fr om inadequate distension. Prostate is unremarkable. Enteric tube is noted terminating over the distal stomach. The small bowel loops are unremarkable. T here is bilateral upper abdominal quadrant ostomies the visualized large bowel is unremarkable. Contr ast is noted within the left upper abdominal quadrant ostomy and distal bowel loops to the rectum. R ectal tube is noted in place. Mild distal rectal wall thickening. No evidence of intraperitoneal free air. Trace ascites with component of loculation over the anterior lower abdomen left lateral upper abdomen . 6.1 x 1.5 x 11 cm loculated fluid over the left upper abdominal quadrant lateral to the spleen with a Left mid to lower abdominal approach drainage catheter terminating over the inferior portion of th e fluid collection. The loculated fluid are marginally decreased in size from prior imaging. There is additional right mid abdominal approach drainage catheter terminating over the left lower ab dominal quadrant. No evidence of aortic aneurysm or dissection. Slightly prominent retroperitoneal lymph nodes measuring up to 1.1 cm which may be reactive. Minimal body wall edema. Postsurgical changes of the periumbilical region. No destructive osseous les ions are noted. IMPRESSION: Small right with small to moderate left-sided pleural effusions with bibasilar pneumonia and atelecta sis. Trace ascites with component of loculation ; marginal improved from prior imaging as detailed above. Unchanged drainage catheters. Wall thickening of the urinary bladder which is most likely from inadequate distension. Correlation with urinalysis is recommended to exclude cystitis. Mild distal rectal wall thickening. Correlate for proctitis/neoplasm. Mild nonspecific wall thickening of the gallbladder which may be from the Trace ascites. Additional findings as above.
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
[2025-01-26] VITALS (106 sets, daily range): BP systolic 66–164; BP diastolic 31–96; PULSE 83–159; RESP 12–49; TEMP 97.5–102.8; O2SAT 86–100
[2025-01-26 03:56] LABS: Hematocrit 26.1 % (41.0-53.0); Mean Corpuscular Volume 87.0 fL (80.0-100.0); Nucleated Red Blood Cells % 0.0 %
[2025-01-26 03:57] LABS: Hemoglobin 8.7 g/dL (13.5-17.5); Mean Corpuscular Hemoglobin 29.2 pg (28.0-32.0)
[2025-01-26 04:20] LABS: Alanine Aminotransferase 29 U/L (7-40); Albumin 3.6 g/dL (3.2-4.8); Alkaline Phosphatase 137 U/L (46-116); Anion Gap 10 (5-15); BUN/Creatinine Ratio 13.6 (10.0-20.0); Bilirubin, Total 0.2 mg/dL (0.2-1.0); Blood Urea Nitrogen 6 mg/dL (9-23); Calcium 8.4 mg/dL (8.7-10.4); Carbon Dioxide 25 mmol/L (20-31); Chloride 104 mmol/L (98-107); Glucose 113 mg/dL (74-106); Potassium 3.8 mmol/L (3.5-5.1); Sodium 139 mmol/L (136-145); Total Protein 6.8 g/dL (5.7-8.2); Triglycerides 203 mg/dL (< 150)
[2025-01-26 04:25] LABS: INR 1.15 (0.9-1.15); Partial Thromboplastin Time 55.0 SEC (24.5-34.5); Prothrombin Time 12.0 sec (9.3-11.8)
--- NOTE | 2025-01-26 06:22 | DVH ---
EXAM: XY CHEST XRAY 1 VIEW HISTORY: on vent, b/l congestion COMPARISON: XY CHEST XRAY 1 VIEW on DOS: 01/25/25, XY CHEST XRAY 1 VIEW on DOS: 01/24/25, XY CHEST XRAY 1 VIEW on DOS: 01/23/25, XY CHEST XRAY 1 VIEW on DOS: 01/22/25, XY CHEST XRAY 1 VIEW on DOS: 01/21/25 TECHNIQUE: Portable AP view of the chest was performed. FINDINGS: Tracheostomy tube, NG tube, feeding tube, and right upper extremity PICC line are re-identified. The re are diffuse bilateral interstitial opacities, [id number], similar to that seen previo usly. There is blunting of the left costophrenic angle. No pneumothorax. The heart is not enlarged. IMPRESSION: 1. Tracheostomy ventilation. Other tubes and lines as above. 2. Diffuse bilateral interstitial opacities, [id number]. This appearance may be due to interstitial pneumonia or asymmetric pulmonary edema. 3. Small left pleural effusion.
[2025-01-26] MEDS: levETIRAcetam 500 mg/100ml 100 ML IV SCH (10:37)
--- NOTE | 2025-01-26 12:46 | DVHPN2 ---
Progress Note - Dictate Date Seen: Jan 26, 2025 Has the PT tested + for MRSA If YES, has PT been informed?: No Medical Necessity Reason Pt with a Central, PICC or Fol: Yes The following are medically ne: Navarrete Catheter Reason for navarrete catheter: Strict I&O Subjective Patient remains hemodynamically stable off pressors Patient opens eyes but does not follow commands, abdomen soft, non distended, stoma viable with flatus in appliance, stable Wound granulating, good urine output, drains with minimal serous output, Hemoglobin stable at 8.7 after 2 units PRBC No active GI bleeding reported Leukocytosis improving; thrombocytosis improving Patient is on multiple antibiotics Patient is being weaned off sedation On IV heparin for right arm DVT, PT INR therapeutic Patient running fevers with tachycardia, cooling blanket in place vital signs Vital Sign Date Time Temp Pulse Resp B/P (MAP) Pulse Ox O2 Delivery O2 Flow Rate FiO2 01/26/25 12:15 127 30 122/69 (86) 97 30 01/26/25 11:51 102.4 01/26/25 08:00 Mechanical Ventilator+ Total Intake and Output 01/25/25 01/25/25 01/26/25 15:00 23:00 07:00 Intake Total 1718.47 ml 1409.72 ml 1729.715 ml Output Total 3515 ml 2330 ml Balance 1718.47 ml -2105.28 ml -600.285 ml medications Current Medications Medications Dose Ordered Sig/Sherron Route Start Time Stop Time Status Last Admin Dose Admin Pantoprazole Sodium 40 mg DAILY IV 12/18/24 10:00 01/26/25 09:03 40 MG Midazolam HCl 50 ml @ 1 mls/hr Q24H IV 12/17/24 17:00 01/26/25 07:47 15 MLS/HR Valproate Sodium 250 mg/Sodium Chloride 52.5 ml @ 52.5 mls/hr BID IV 12/17/24 22:00 01/26/25 00:30 52.5 MLS/HR Propofol 100 ml @ 2.37 mls/hr Q24H IV 12/17/24 18:15 01/26/25 07:46 23.7 MLS/HR Norepinephrine Bitartrate 250 ml @ 3.75 mls/hr Q24H IV 12/18/24 01:45 01/24/25 15:10 3.75 MLS/HR Diagnostic Test (Pha) 1 strip Q6HR 12/20/24 18:00 01/26/25 11:49 1 STRIP Insulin Human Regular FOLLOW SLIDING SCALE Q6HR SC 12/20/24 18:00 01/06/25 05:34 2 UNITS Dextrose 50 ml UD IV 12/20/24 14:15 12/20/24 17:47 50 ML Sodium Chloride 40 meq/Potassium Chloride 40 meq/ Potassium Phosphate 11 meq/ Calcium Gluconate 2.3 meq/Magnesium Sulfate 8 meq/ Multivitamins 10 ml/Chromium/ Copper/Manganese/ Zinc 1 ml/Amino Acids/Dextrose/ Purified Water 1,450.4462 ml @ 60 mls/hr [id number] IV 12/26/24 22:00 12/27/24 21:59 Cancel Ipratropium [place]ford 0.5 mg Q6HR NEB 12/27/24 18:00 01/26/25 12:14 0.5 MG Levalbuterol HCl 1.25 mg Q6HR NEB 12/27/24 18:00 01/26/25 12:14 1.25 MG Sodium Chloride 10 ml QSHIFT@10,22 IV 12/27/24 22:00 01/26/25 09:04 10 ML Artificial Tears 1 drop Q6HP PRN EACHEYE 12/29/24 23:45 01/06/25 09:00 1 DROP Meropenem 50 ml @ 17 mls/hr Q8HR IV 12/31/24 14:00 01/26/25 05:36 17 MLS/HR Ketamine HCl 50 mg [id number] PRN IV 01/04/25 15:00 01/05/25 07:00 Cancel Sodium Chloride 120 meq/Potassium Chloride 50 meq/ Potassium Acetate 50 meq/Calcium Gluconate 4.65 meq/Magnesium Sulfate 34 meq/ Multivitamins 10 ml/Chromium/ Copper/Manganese/ Zinc 1 ml/Amino Acids/Dextrose/ Purified Water 1,659.5 ml @ 68.108 mls/hr [id number] IV 01/09/25 22:00 01/10/25 21:59 Cancel Sodium Chloride 100 meq/Potassium Chloride 50 meq/ Calcium Gluconate 4.65 meq/ Magnesium Sulfate 34 meq/ Multivitamins 10 ml/Chromium/ Copper/Manganese/ Zinc 1 ml/Sodium Phosphate 20 meq/ Potassium Acetate 50 meq/Amino Acids/Dextrose/ Purified Water 1,659.5 ml @ 68.537 mls/hr [id number] IV 01/09/25 09:30 01/09/25 21:59 Cancel Linezolid 300 ml @ 150 mls/hr Q12H IV 01/11/25 23:00 01/26/25 02:01 150 MLS/HR Ketamine HCl 1000 mg/Sodium Chloride 500 ml @ 2.91 mls/hr Q24H IV 01/13/25 18:30 01/26/25 03:33 43.65 MLS/HR Fentanyl Citrate 250 ml @ 2.5 mls/hr Q24H IV 01/14/25 12:45 01/26/25 11:58 35 MLS/HR Acetylcysteine 200 mg Q6HR NEB 01/18/25 12:00 01/26/25 12:14 200 MG Labetalol HCl 10 mg Q4HPRN PRN IV 01/18/25 17:15 01/26/25 11:43 10 MG Heparin Sodium/ Dextrose 250 ml @ 20 mls/hr [id number] IV 01/19/25 15:30 01/26/25 10:36 20 MLS/HR Lorazepam 1 mg ONCE PRN IV 01/19/25 22:45 Thiamine HCl 100 mg DAILY IV 01/20/25 10:00 01/26/25 09:03 100 MG Folic Acid 1 mg DAILY PO 01/20/25 10:00 01/26/25 09:04 1 MG Acetaminophen 650 mg Q6HP PRN GT 01/22/25 10:15 01/26/25 11:51 650 MG Micafungin Sodium 100 mg/Sodium Chloride 100 ml @ 100 mls/hr DAILY IV 01/23/25 10:00 01/26/25 09:03 100 MLS/HR Enteral Nutritional Formula 1,000 ml 50ML/HR GT 01/23/25 13:00 01/23/25 22:34 1,000 ML Fentanyl 50 mcg Q72H TD 01/23/25 17:00 01/23/25 17:14 50 MCG Furosemide 40 mg DAILY IV 01/25/25 10:00 01/26/25 09:03 40 MG Levetiracetam 100 ml @ 400 mls/hr BID IV 01/26/25 10:00 01/26/25 10:37 400 MLS/HR Quetiapine Fumarate 50 mg BID PO 01/26/25 22:00 Chlordiazepoxide HCl 50 mg BID PO 01/26/25 22:00 objective General Appearance: On ventilator, FiO2 30% HEENT: Atraumatic, PERRLA, EOMI, Mucous membr. moist/pink Respiratory: Normal air movement, Other (On ventilator) Cardiovascular: Regular rate, Normal S1, Normal S2, No murmurs Abdominal: Binder in place, soft, distended, no bowel sounds; minimal colostomy liquid output Extremities: No clubbing, No cyanosis, No edema, Normal pulses, No tenderness/swelling Skin: No rashes, No breakdown, No significant lesion Neuro: Normal speech, Normal tone, Sensation intact, Cranial nerves 3-12 NL, Reflexes 2+, Other (Generalized weakness) Psych/Mental Status: Mood NL, Other (Altered mental status) Rectal exam, normal tone no obstipation rectal mass or obstruction noted and no stool in the rectum laboratory and microbiology Laboratory Tests 01/26/25 03:32 Test 01/26/25 03:32 Range/Units Serum Glucose 113 H 74-106 mg/dL Repeat CT abdomen pelvis 01/24 IMPRESSION: Small right with small to moderate left-sided pleural effusions with bibasilar pneumonia and atelectasis. Trace ascites with component of loculation ; marginal improved from prior imaging as detailed above. Unchanged drainage catheters. Wall thickening of the urinary bladder which is most likely from inadequate distension. Correlation with urinalysis is recommended to exclude cystitis. Mild distal rectal wall thickening. Correlate for proctitis/neoplasm. Mild nonspecific wall thickening of the gallbladder which may be from the Trace ascites. Additional findings as above. Problems(with codes): (1) Sigmoid colon injury (2) Septicemia due to vancomycin resistant Enterococcus (VRE) species (3) Peritonitis (4) Acute respiratory failure (5) Sepsis, unspecified organism (6) Generalized weakness (7) Leukocytosis Prognosis Plan Continue antibiotic coverage Continue pulmonary toilet entry care ID follow up Repeat CT is reassuring as there is slight improvement Clinically patient appears stable from a GI point of view but has on going infection in and pulmonary issues Continue supportive care, continue tube feedings as tolerated Wound cares Dietary Evaluation Review Comments: 1. TF: Vital AF@50ml/hr (90g protein, 1440kcal 973 free water) meeting Protein needs 83%, energy needs 80%. 2. TPN per pharmacy meeting 75% of his needs if TF not feasible or NPO>7 days. 3. Diet as tolerated per BUSINESS COMPUTERS TEACHER eval when off Vent Expected Outcomes/Goals: Preventing catabolism Plan discussed with: Patient, Other (ICU Nurse) MAO COLEMAN MD Jan 26, 2025 12:46
--- NOTE | 2025-01-26 15:49 | DVHPN2 ---
Assessment/Plan Assessment/Plan ICU note 44 M with epilepsy and chronic pain admitted for abdominal pain, agitated and restless, worsening resp status leads to intubation. s/p exlap 12/27 VRE and Citrobacter peritonitis, difficult to sedate seen today, still no BM. resp alkalosis, vent adjusted. repeat gas. hypok repleted. physical exam trached, sedated on mechanical vent agitated, overbreathing, trashing around PERRLA MMM mechanical breath sounds s1 s2 tachy abdomen with surg scar and colostomy labs ekg imaging reviewed assessment and plan acute metabolic encephalopathy epilepsy septic shock UTI? PNA gp gn? peritonitis VRE and citrobacter acute hypoxic rf req mechanical vent s/p trach severe constipation gastroparesis gout chronic pain hypokalemia difficult to sedate ARDS PLE RUE DVT anemia s/p transfusion c/w mechanical vent, on SIMV pressor to keep MAP >65 sedation to keep raas -1 to 0, prop, fent, versed, ketamine, add oral meds seroqeul, Librium methadone (propofol can go up to 66, precedex to 1.1) c/w TF c.w thiamine and folate start oral antiHTN c/w cadence and zyfox surg consult appreciated c/w heparin drip diet TF dvt ppx heparin drip gi ppx protonix full code condition critical prognosis poor 90 minutes critical care time rendered Plan discussed with: Other My Orders Orders - BELLA PIPER MD Procedure Category Date Status Time Carvedilol Tablet PHA 01/26/25 Logged (Coreg Tablet) 22:00 Methadone Hcl Tablet PHA 01/26/25 Logged (Methadone Hcl Tabl 22:00 Basic Metabolic Panel LAB 01/27/25 Verified 04:00 Complete Blood Count LAB 01/27/25 Verified 04:00 Phosphorus LAB 01/27/25 Verified 04:00 Magnesium LAB 01/27/25 Verified 04:00 Communication Order ORDERS 01/26/25 Transmitted 15:44 Date of Service: Jan 26, 2025 Billing Provider: BELLA PIPER MD Common Visit Codes: 70066-[id number] CARE 30-74 MIN, [id number] CARE-EACH +30MIN BELLA PIPER MD Jan 26, 2025 15:49
--- NOTE | 2025-01-26 16:00 | DVHPN2 ---
Progress Note - Dictate Date Seen: Jan 26, 2025 Has the PT tested + for MRSA If YES, has PT been informed?: No Medical Necessity Reason Pt with a Central, PICC or Fol: Yes The following are medically ne: Navarrete Catheter Reason for navarrete catheter: Strict I&O vital signs Vital Sign Date Time Temp Pulse Resp B/P (MAP) Pulse Ox O2 Delivery O2 Flow Rate FiO2 01/26/25 15:16 99.7 122 18 142/73 (96) 96 211.5 01/26/25 14:18 30 01/26/25 14:00 Mechanical Ventilator+ Total Intake and Output 01/25/25 01/25/25 01/26/25 15:00 23:00 07:00 Intake Total 1718.47 ml 1409.72 ml 1729.715 ml Output Total 3515 ml 2330 ml Balance 1718.47 ml -2105.28 ml -600.285 ml medications Current Medications Medications Dose Ordered Sig/Sherron Route Start Time Stop Time Status Last Admin Dose Admin Pantoprazole Sodium 40 mg DAILY IV 12/18/24 10:00 01/26/25 09:03 40 MG Midazolam HCl 50 ml @ 1 mls/hr Q24H IV 12/17/24 17:00 01/26/25 07:47 15 MLS/HR Valproate Sodium 250 mg/Sodium Chloride 52.5 ml @ 52.5 mls/hr BID IV 12/17/24 22:00 01/26/25 11:30 52.5 MLS/HR Propofol 100 ml @ 2.37 mls/hr Q24H IV 12/17/24 18:15 01/26/25 07:46 23.7 MLS/HR Norepinephrine Bitartrate 250 ml @ 3.75 mls/hr Q24H IV 12/18/24 01:45 01/24/25 15:10 3.75 MLS/HR Diagnostic Test (Pha) 1 strip Q6HR 12/20/24 18:00 01/26/25 11:49 1 STRIP Insulin Human Regular FOLLOW SLIDING SCALE Q6HR SC 12/20/24 18:00 01/06/25 05:34 2 UNITS Dextrose 50 ml UD IV 12/20/24 14:15 12/20/24 17:47 50 ML Sodium Chloride 40 meq/Potassium Chloride 40 meq/ Potassium Phosphate 11 meq/ Calcium Gluconate 2.3 meq/Magnesium Sulfate 8 meq/ Multivitamins 10 ml/Chromium/ Copper/Manganese/ Zinc 1 ml/Amino Acids/Dextrose/ Purified Water 1,450.4462 ml @ 60 mls/hr [id number] IV 12/26/24 22:00 12/27/24 21:59 Cancel Ipratropium [place] 0.5 mg Q6HR NEB 12/27/24 18:00 01/26/25 12:14 0.5 MG Levalbuterol HCl 1.25 mg Q6HR NEB 12/27/24 18:00 01/26/25 12:14 1.25 MG Sodium Chloride 10 ml QSHIFT@10,22 IV 12/27/24 22:00 01/26/25 09:04 10 ML Artificial Tears 1 drop Q6HP PRN EACHEYE 12/29/24 23:45 01/06/25 09:00 1 DROP Meropenem 50 ml @ 17 mls/hr Q8HR IV 12/31/24 14:00 01/26/25 05:36 17 MLS/HR Ketamine HCl 50 mg [id number] PRN IV 01/04/25 15:00 01/05/25 07:00 Cancel Sodium Chloride 120 meq/Potassium Chloride 50 meq/ Potassium Acetate 50 meq/Calcium Gluconate 4.65 meq/Magnesium Sulfate 34 meq/ Multivitamins 10 ml/Chromium/ Copper/Manganese/ Zinc 1 ml/Amino Acids/Dextrose/ Purified Water 1,659.5 ml @ 68.108 mls/hr [id number] IV 01/09/25 22:00 01/10/25 21:59 Cancel Sodium Chloride 100 meq/Potassium Chloride 50 meq/ Calcium Gluconate 4.65 meq/ Magnesium Sulfate 34 meq/ Multivitamins 10 ml/Chromium/ Copper/Manganese/ Zinc 1 ml/Sodium Phosphate 20 meq/ Potassium Acetate 50 meq/Amino Acids/Dextrose/ Purified Water 1,659.5 ml @ 68.537 mls/hr [id number] IV 01/09/25 09:30 01/09/25 21:59 Cancel Linezolid 300 ml @ 150 mls/hr Q12H IV 01/11/25 23:00 01/26/25 14:00 150 MLS/HR Ketamine HCl 1000 mg/Sodium Chloride 500 ml @ 2.91 mls/hr Q24H IV 01/13/25 18:30 01/26/25 03:33 43.65 MLS/HR Fentanyl Citrate 250 ml @ 2.5 mls/hr Q24H IV 01/14/25 12:45 01/26/25 11:58 35 MLS/HR Acetylcysteine 200 mg Q6HR NEB 01/18/25 12:00 01/26/25 12:14 200 MG Labetalol HCl 10 mg Q4HPRN PRN IV 01/18/25 17:15 01/26/25 11:43 10 MG Heparin Sodium/ Dextrose 250 ml @ 20 mls/hr [id number] IV 01/19/25 15:30 01/26/25 10:36 20 MLS/HR Lorazepam 1 mg ONCE PRN IV 01/19/25 22:45 Thiamine HCl 100 mg DAILY IV 01/20/25 10:00 01/26/25 09:03 100 MG Folic Acid 1 mg DAILY PO 01/20/25 10:00 01/26/25 09:04 1 MG Acetaminophen 650 mg Q6HP PRN GT 01/22/25 10:15 01/26/25 11:51 650 MG Micafungin Sodium 100 mg/Sodium Chloride 100 ml @ 100 mls/hr DAILY IV 01/23/25 10:00 01/26/25 09:03 100 MLS/HR Enteral Nutritional Formula 1,000 ml 50ML/HR GT 01/23/25 13:00 01/23/25 22:34 1,000 ML Fentanyl 50 mcg Q72H TD 01/23/25 17:00 01/23/25 17:14 50 MCG Furosemide 40 mg DAILY IV 01/25/25 10:00 01/26/25 09:03 40 MG Levetiracetam 100 ml @ 400 mls/hr BID IV 01/26/25 10:00 01/26/25 10:37 400 MLS/HR Quetiapine Fumarate 50 mg BID PO 01/26/25 22:00 Chlordiazepoxide HCl 50 mg BID PO 01/26/25 22:00 Carvedilol 3.125 mg Q12HR PO 01/26/25 22:00 UNV Methadone HCl 10 mg Q8HR PO 01/26/25 22:00 UNV laboratory and microbiology Laboratory Tests 01/26/25 03:32 Test 01/26/25 03:32 Range/Units Serum Glucose 113 H 74-106 mg/dL Assessment/Plan Quality Manager rounds Impression Acute hypoxemic respiratory failure Right upper extremity DVT S/p tracheostomy Sepsis S/p ex lap Patient seen and examined in ICU Events S/p tracheostomy Remains trach to vent Patient de-synchronous with ventilator Appears agitated and delirious On Heparin drip for DVT of the right upper extremity Labs and imaging reviewed ABG reviewed Management Vent support Titrate to maintain sats 90% or above Sedation for vent synchrony Trache care per RT protocols Continue antibiotics and antifungals F/u cultures and ID Bronchodilators Monitor renal function Monitor electrolytes Supplement as needed F/u general surgery Continue anticoagulation therapy In attempt to wean patient from sedation, start Librium 50mg and Seroquel 50mg BID Critical care time 35 minutes Dietary Evaluation Review Comments: 1. TF: Vital AF@50ml/hr (90g protein, 1440kcal 973 free water) meeting Protein needs 83%, energy needs 80%. 2. TPN per pharmacy meeting 75% of his needs if TF not feasible or NPO>7 days. 3. Diet as tolerated per UNIT AIDE eval when off Vent Expected Outcomes/Goals: Preventing catabolism Plan discussed with: Other (Rn) RENARD VALVERDE MD Jan 26, 2025 16:00
[2025-01-26] MEDS: CARVEDILOL 3.125 MG TAB PO SCH (22:00)
[2025-01-26] MEDS: METHADONE HCL 10 MG TAB PO SCH (22:00)
[2025-01-27] VITALS (107 sets, daily range): BP systolic 80–172; BP diastolic 34–100; PULSE 86–131; RESP 10–49; TEMP 97.5–101.5; O2SAT 85–100
[2025-01-27 04:06] LABS: Hematocrit 27.9 % (41.0-53.0); Hemoglobin 9.4 g/dL (13.5-17.5); Mean Corpuscular Hemoglobin 29.5 pg (28.0-32.0); Mean Corpuscular Volume 87.0 fL (80.0-100.0); Nucleated Red Blood Cells % 0.1 %
[2025-01-27 04:19] LABS: Anion Gap 14 (5-15); Calcium 9.2 mg/dL (8.7-10.4); Carbon Dioxide 26 mmol/L (20-31)
[2025-01-27 04:21] LABS: INR 1.22 (0.9-1.15); Partial Thromboplastin Time 60.7 SEC (24.5-34.5); Prothrombin Time 12.7 sec (9.3-11.8)
[2025-01-27 04:24] LABS: Chloride 96 mmol/L (98-107); Potassium 3.3 mmol/L (3.5-5.1); Sodium 136 mmol/L (136-145)
[2025-01-27 04:25] LABS: BUN/Creatinine Ratio 13.6 (10.0-20.0); Glucose 84 mg/dL (74-106)
[2025-01-27 04:28] LABS: Blood Urea Nitrogen 6 mg/dL (9-23); Magnesium 1.4 mg/dL (1.6-2.6)
--- NOTE | 2025-01-27 09:10 | CONS ---
Pharmacy Clinical Information: HEPARIN DRIP UPDATE PTT = 60.7 NO CHANGE NEXT PTT TOMORROW 01/28/25 @AM VIRIDIANA JIMÉNEZ PHARMACIST Jan 27, 2025 09:10
--- NOTE | 2025-01-27 10:49 | DVHPN2 ---
Assessment/Plan Assessment/Plan ICU note 44 M with epilepsy and chronic pain admitted for abdominal pain, agitated and restless, worsening resp status leads to intubation. s/p exlap 12/27 VRE and Citrobacter peritonitis, difficult to sedate seen today, small colostomy output. on SIMV. will get EKG today to continue medication titration for oral sedation assist and titrating down drips. physical exam trached, sedated on mechanical vent agitated, overbreathing, trashing around PERRLA MMM mechanical breath sounds s1 s2 tachy abdomen with surg scar and colostomy labs ekg imaging reviewed assessment and plan acute metabolic encephalopathy epilepsy septic shock UTI? PNA gp gn? peritonitis VRE and citrobacter acute hypoxic rf req mechanical vent s/p trach severe constipation gastroparesis gout chronic pain hypokalemia difficult to sedate ARDS PLE RUE DVT anemia s/p transfusion c/w mechanical vent, on SIMV pressor to keep MAP >65 sedation to keep raas -1 to 0, prop, fent, versed, ketamine, add oral meds seroqeul, Librium methadone (propofol can go up to 66, precedex to 1.1) c/w TF c.w thiamine and folate start oral antiHTN c/w cadence and zyfox surg consult appreciated c/w heparin drip EKG for QTC diet TF dvt ppx heparin drip gi ppx protonix full code condition critical prognosis poor 45 minutes critical care time rendered Plan discussed with: Other My Orders Orders - BELLA PIPER MD Procedure Category Date Status Time Carvedilol Tablet PHA 01/26/25 In Process (Coreg Tablet) 22:00 Methadone Hcl Tablet PHA 01/26/25 In Process (Methadone Hcl Tabl 22:00 Communication Order ORDERS 01/26/25 Transmitted 15:44 Potassium Chl PHA 01/27/25 Logged 20meq/100ml 10:45 Complete Blood Count LAB 01/28/25 Verified 04:00 Basic Metabolic Panel LAB 01/28/25 Verified 04:00 Electrocardigram EKG 01/27/25 Logged 10:42 Date of Service: Jan 27, 2025 Billing Provider: BELLA PIPER MD Common Visit Codes: 88938-[id number] CARE 30-74 MIN BELLA PIPER MD Jan 27, 2025 10:49
[2025-01-27] MEDS: POTASSIUM CHL 20MEQ/100ML 100 ML IV SCH (11:22)
--- NOTE | 2025-01-27 17:25 | DVHPN2 ---
Progress Note - Dictate Date Seen: Jan 27, 2025 Has the PT tested + for MRSA If YES, has PT been informed?: No Medical Necessity Reason Pt with a Central, PICC or Fol: Yes The following are medically ne: Navarrete Catheter Reason for navarrete catheter: Strict I&O vital signs Vital Sign Date Time Temp Pulse Resp B/P (MAP) Pulse Ox O2 Delivery O2 Flow Rate FiO2 01/27/25 15:36 102 30 145/83 (103) 96 30 01/27/25 14:00 98.6 209.5 01/27/25 14:00 Mechanical Ventilator+ Total Intake and Output 01/26/25 01/26/25 01/27/25 15:00 23:00 07:00 Intake Total 1498.2 ml 1435.790 ml 1508.685 ml Output Total 5110 ml 615 ml Balance 1498.2 ml -3674.210 ml 893.685 ml medications Current Medications Medications Dose Ordered Sig/Sherron Route Start Time Stop Time Status Last Admin Dose Admin Pantoprazole Sodium 40 mg DAILY IV 12/18/24 10:00 01/27/25 10:05 40 MG Midazolam HCl 50 ml @ 1 mls/hr Q24H IV 12/17/24 17:00 01/27/25 10:04 8 MLS/HR Valproate Sodium 250 mg/Sodium Chloride 52.5 ml @ 52.5 mls/hr BID IV 12/17/24 22:00 01/27/25 10:09 52.5 MLS/HR Propofol 100 ml @ 2.37 mls/hr Q24H IV 12/17/24 18:15 01/27/25 14:36 18.96 MLS/HR Norepinephrine Bitartrate 250 ml @ 3.75 mls/hr Q24H IV 12/18/24 01:45 01/26/25 23:15 3.75 MLS/HR Diagnostic Test (Pha) 1 strip Q6HR 12/20/24 18:00 01/27/25 12:00 1 STRIP Insulin Human Regular FOLLOW SLIDING SCALE Q6HR SC 12/20/24 18:00 01/06/25 05:34 2 UNITS Dextrose 50 ml UD IV 12/20/24 14:15 12/20/24 17:47 50 ML Sodium Chloride 40 meq/Potassium Chloride 40 meq/ Potassium Phosphate 11 meq/ Calcium Gluconate 2.3 meq/Magnesium Sulfate 8 meq/ Multivitamins 10 ml/Chromium/ Copper/Manganese/ Zinc 1 ml/Amino Acids/Dextrose/ Purified Water 1,450.4462 ml @ 60 mls/hr [id number] IV 12/26/24 22:00 12/27/24 21:59 Cancel Ipratropium [place] 0.5 mg Q6HR NEB 12/27/24 18:00 01/27/25 12:25 0.5 MG Levalbuterol HCl 1.25 mg Q6HR NEB 12/27/24 18:00 01/27/25 12:25 1.25 MG Sodium Chloride 10 ml QSHIFT@10,22 IV 12/27/24 22:00 01/27/25 10:27 10 ML Artificial Tears 1 drop Q6HP PRN EACHEYE 12/29/24 23:45 01/06/25 09:00 1 DROP Meropenem 50 ml @ 17 mls/hr Q8HR IV 12/31/24 14:00 01/27/25 14:45 17 MLS/HR Ketamine HCl 50 mg [id number] PRN IV 01/04/25 15:00 01/05/25 07:00 Cancel Sodium Chloride 120 meq/Potassium Chloride 50 meq/ Potassium Acetate 50 meq/Calcium Gluconate 4.65 meq/Magnesium Sulfate 34 meq/ Multivitamins 10 ml/Chromium/ Copper/Manganese/ Zinc 1 ml/Amino Acids/Dextrose/ Purified Water 1,659.5 ml @ 68.108 mls/hr [id number] IV 01/09/25 22:00 01/10/25 21:59 Cancel Sodium Chloride 100 meq/Potassium Chloride 50 meq/ Calcium Gluconate 4.65 meq/ Magnesium Sulfate 34 meq/ Multivitamins 10 ml/Chromium/ Copper/Manganese/ Zinc 1 ml/Sodium Phosphate 20 meq/ Potassium Acetate 50 meq/Amino Acids/Dextrose/ Purified Water 1,659.5 ml @ 68.537 mls/hr [id number] IV 01/09/25 09:30 01/09/25 21:59 Cancel Linezolid 300 ml @ 150 mls/hr Q12H IV 01/11/25 23:00 01/27/25 11:22 150 MLS/HR Ketamine HCl 1000 mg/Sodium Chloride 500 ml @ 2.91 mls/hr Q24H IV 01/13/25 18:30 01/27/25 15:39 27.645 MLS/HR Fentanyl Citrate 250 ml @ 2.5 mls/hr Q24H IV 01/14/25 12:45 01/27/25 13:53 15 MLS/HR Acetylcysteine 200 mg Q6HR NEB 01/18/25 12:00 01/27/25 12:25 200 MG Labetalol HCl 10 mg Q4HPRN PRN IV 01/18/25 17:15 01/26/25 11:43 10 MG Heparin Sodium/ Dextrose 250 ml @ 20 mls/hr [id number] IV 01/19/25 15:30 01/27/25 13:52 20 MLS/HR Lorazepam 1 mg ONCE PRN IV 01/19/25 22:45 Thiamine HCl 100 mg DAILY IV 01/20/25 10:00 01/27/25 10:06 100 MG Folic Acid 1 mg DAILY PO 01/20/25 10:00 01/27/25 10:27 1 MG Acetaminophen 650 mg Q6HP PRN GT 01/22/25 10:15 01/27/25 07:05 650 MG Micafungin Sodium 100 mg/Sodium Chloride 100 ml @ 100 mls/hr DAILY IV 01/23/25 10:00 01/27/25 10:12 100 MLS/HR Enteral Nutritional Formula 1,000 ml 50ML/HR GT 01/23/25 13:00 01/23/25 22:34 1,000 ML Fentanyl 50 mcg Q72H TD 01/23/25 17:00 01/23/25 17:14 50 MCG Furosemide 40 mg DAILY IV 01/25/25 10:00 01/27/25 10:19 40 MG Levetiracetam 100 ml @ 400 mls/hr BID IV 01/26/25 10:00 01/27/25 10:01 400 MLS/HR Quetiapine Fumarate 50 mg BID PO 01/26/25 22:00 01/27/25 10:26 50 MG Chlordiazepoxide HCl 50 mg BID PO 01/26/25 22:00 01/27/25 10:26 50 MG Carvedilol 3.125 mg Q12HR PO 01/26/25 22:00 Methadone HCl 10 mg Q8HR PO 01/26/25 22:00 01/27/25 14:44 10 MG Mupirocin 1 applic BID EACHNOSTRI 01/27/25 22:00 02/01/25 21:59 UNV laboratory and microbiology Laboratory Tests 01/27/25 03:30 Test 01/27/25 03:30 Range/Units Serum Glucose 84 74-106 mg/dL Assessment/Plan Equity Director rounds Impression Acute hypoxemic respiratory failure Right upper extremity DVT S/p tracheostomy Sepsis S/p ex lap Patient seen and examined in ICU Events S/p tracheostomy Remains trach to vent Patient appears delirious as result of prolonged use of sedation Appears to be withdrawing, on Methadone Started on Librium and Seroquel Labs and imaging reviewed ABG reviewed Management Vent support Titrate to maintain sats 90% or above Sedation for vent synchrony Trache care per RT protocols Continue antibiotics and antifungals F/u cultures and ID Bronchodilators Monitor renal function Monitor electrolytes Supplement as needed F/u general surgery Continue anticoagulation therapy Discontinue sedation Recommend Ketamine drip first, followed by Versed drip second, then Propofol and Fentanyl Critical care time 35 minutes Dietary Evaluation Review Comments: 1. TF: Vital AF@50ml/hr (90g protein, 1440kcal 973 free water) meeting Protein needs 83%, energy needs 80%. 2. TPN per pharmacy meeting 75% of his needs if TF not feasible or NPO>7 days. 3. Diet as tolerated per MANUFACTURER eval when off Vent Expected Outcomes/Goals: Preventing catabolism Plan discussed with: Other (Rn) RENARD VALVERDE MD Jan 27, 2025 17:25
[2025-01-27] MEDS: MAGNESIUM SULFATE 1GM/100ML 100 ML IV SCH (17:36)
--- NOTE | 2025-01-27 18:47 | DVHPN2 ---
Progress Note - Dictate Date Seen: Jan 27, 2025 Has the PT tested + for MRSA If YES, has PT been informed?: No Medical Necessity Reason Pt with a Central, PICC or Fol: Yes The following are medically ne: Navarrete Catheter Reason for navarrete catheter: Strict I&O Subjective atient remains hemodynamically stable off pressors Patient opens eyes but does not follow commands, abdomen soft, non distended, stoma viable with flatus in appliance, stable Wound granulating, good urine output, drains with minimal serous output, Hemoglobin stable at 8.7 after 2 units PRBC No active GI bleeding reported Leukocytosis improving; thrombocytosis improving Patient is on multiple antibiotics Patient is being weaned off sedation On IV heparin for right arm DVT, PT INR therapeutic Patient running fevers with tachycardia, cooling blanket in place vital signs Vital Sign Date Time Temp Pulse Resp B/P (MAP) Pulse Ox O2 Delivery O2 Flow Rate FiO2 01/27/25 18:00 30 01/27/25 17:31 165/87 01/27/25 15:36 102 30 96 01/27/25 14:00 98.6 209.5 01/27/25 14:00 Mechanical Ventilator+ Total Intake and Output 01/26/25 01/26/25 01/27/25 15:00 23:00 07:00 Intake Total 1498.2 ml 1435.790 ml 1508.685 ml Output Total 5110 ml 615 ml Balance 1498.2 ml -3674.210 ml 893.685 ml medications Current Medications Medications Dose Ordered Sig/Sherron Route Start Time Stop Time Status Last Admin Dose Admin Pantoprazole Sodium 40 mg DAILY IV 12/18/24 10:00 01/27/25 10:05 40 MG Midazolam HCl 50 ml @ 1 mls/hr Q24H IV 12/17/24 17:00 01/27/25 17:31 7 MLS/HR Valproate Sodium 250 mg/Sodium Chloride 52.5 ml @ 52.5 mls/hr BID IV 12/17/24 22:00 01/27/25 10:09 52.5 MLS/HR Propofol 100 ml @ 2.37 mls/hr Q24H IV 12/17/24 18:15 01/27/25 14:36 18.96 MLS/HR Norepinephrine Bitartrate 250 ml @ 3.75 mls/hr Q24H IV 12/18/24 01:45 01/26/25 23:15 3.75 MLS/HR Diagnostic Test (Pha) 1 strip Q6HR 12/20/24 18:00 01/27/25 12:00 1 STRIP Insulin Human Regular FOLLOW SLIDING SCALE Q6HR SC 12/20/24 18:00 01/06/25 05:34 2 UNITS Dextrose 50 ml UD IV 12/20/24 14:15 12/20/24 17:47 50 ML Sodium Chloride 40 meq/Potassium Chloride 40 meq/ Potassium Phosphate 11 meq/ Calcium Gluconate 2.3 meq/Magnesium Sulfate 8 meq/ Multivitamins 10 ml/Chromium/ Copper/Manganese/ Zinc 1 ml/Amino Acids/Dextrose/ Purified Water 1,450.4462 ml @ 60 mls/hr [id number] IV 12/26/24 22:00 12/27/24 21:59 Cancel Ipratropium [place] 0.5 mg Q6HR NEB 12/27/24 18:00 01/27/25 12:25 0.5 MG Levalbuterol HCl 1.25 mg Q6HR NEB 12/27/24 18:00 01/27/25 12:25 1.25 MG Sodium Chloride 10 ml QSHIFT@10,22 IV 12/27/24 22:00 01/27/25 10:27 10 ML Artificial Tears 1 drop Q6HP PRN EACHEYE 12/29/24 23:45 01/06/25 09:00 1 DROP Meropenem 50 ml @ 17 mls/hr Q8HR IV 12/31/24 14:00 01/27/25 14:45 17 MLS/HR Ketamine HCl 50 mg [id number] PRN IV 01/04/25 15:00 01/05/25 07:00 Cancel Sodium Chloride 120 meq/Potassium Chloride 50 meq/ Potassium Acetate 50 meq/Calcium Gluconate 4.65 meq/Magnesium Sulfate 34 meq/ Multivitamins 10 ml/Chromium/ Copper/Manganese/ Zinc 1 ml/Amino Acids/Dextrose/ Purified Water 1,659.5 ml @ 68.108 mls/hr [id number] IV 01/09/25 22:00 01/10/25 21:59 Cancel Sodium Chloride 100 meq/Potassium Chloride 50 meq/ Calcium Gluconate 4.65 meq/ Magnesium Sulfate 34 meq/ Multivitamins 10 ml/Chromium/ Copper/Manganese/ Zinc 1 ml/Sodium Phosphate 20 meq/ Potassium Acetate 50 meq/Amino Acids/Dextrose/ Purified Water 1,659.5 ml @ 68.537 mls/hr [id number] IV 01/09/25 09:30 01/09/25 21:59 Cancel Linezolid 300 ml @ 150 mls/hr Q12H IV 01/11/25 23:00 01/27/25 11:22 150 MLS/HR Ketamine HCl 1000 mg/Sodium Chloride 500 ml @ 2.91 mls/hr Q24H IV 01/13/25 18:30 01/27/25 15:39 27.645 MLS/HR Fentanyl Citrate 250 ml @ 2.5 mls/hr Q24H IV 01/14/25 12:45 01/27/25 13:53 15 MLS/HR Acetylcysteine 200 mg Q6HR NEB 01/18/25 12:00 01/27/25 12:25 200 MG Labetalol HCl 10 mg Q4HPRN PRN IV 01/18/25 17:15 01/26/25 11:43 10 MG Heparin Sodium/ Dextrose 250 ml @ 20 mls/hr [id number] IV 01/19/25 15:30 01/27/25 13:52 20 MLS/HR Lorazepam 1 mg ONCE PRN IV 01/19/25 22:45 Thiamine HCl 100 mg DAILY IV 01/20/25 10:00 01/27/25 10:06 100 MG Folic Acid 1 mg DAILY PO 01/20/25 10:00 01/27/25 10:27 1 MG Acetaminophen 650 mg Q6HP PRN GT 01/22/25 10:15 01/27/25 07:05 650 MG Micafungin Sodium 100 mg/Sodium Chloride 100 ml @ 100 mls/hr DAILY IV 01/23/25 10:00 01/27/25 10:12 100 MLS/HR Enteral Nutritional Formula 1,000 ml 50ML/HR GT 01/23/25 13:00 01/23/25 22:34 1,000 ML Fentanyl 50 mcg Q72H TD 01/23/25 17:00 01/23/25 17:14 50 MCG Furosemide 40 mg DAILY IV 01/25/25 10:00 01/27/25 10:19 40 MG Levetiracetam 100 ml @ 400 mls/hr BID IV 01/26/25 10:00 01/27/25 10:01 400 MLS/HR Quetiapine Fumarate 50 mg BID PO 01/26/25 22:00 01/27/25 10:26 50 MG Chlordiazepoxide HCl 50 mg BID PO 01/26/25 22:00 01/27/25 10:26 50 MG Carvedilol 3.125 mg Q12HR PO 01/26/25 22:00 Methadone HCl 10 mg Q8HR PO 01/26/25 22:00 01/27/25 14:44 10 MG Mupirocin 1 applic BID EACHNOSTRI 01/27/25 22:00 02/01/25 21:59 UNV objective General Appearance: s/p trach on ventilator agitated, overbreathing, trashing around PERRLA MMM mechanical breath sounds s1 s2 tachy abdomen with surg scar and colostomy Abdominal: Binder in place, soft, distended, no bowel sounds; minimal colostomy liquid output Extremities: No clubbing, No cyanosis, No edema, Normal pulses, No tenderness/swelling laboratory and microbiology Laboratory Tests 01/27/25 03:30 Test 01/27/25 03:30 Range/Units Serum Glucose 84 74-106 mg/dL CXR IMPRESSION: 1. Tracheostomy ventilation. Other tubes and lines as above. 2. Diffuse bilateral interstitial opacities, [id number]-[id number]-bgmx-left. This appearance may be due to interstitial pneumonia or asymmetric pulmonary edema. 3. Small left pleural effusion. Problems(with codes): (1) Sigmoid colon injury (2) Septicemia due to vancomycin resistant Enterococcus (VRE) species (3) Peritonitis (4) Constipation (5) Sepsis, unspecified organism (6) Generalized weakness (7) Acute abdominal pain (8) Leukocytosis Prognosis A?P c/w mechanical vent, on SIMV pressor to keep MAP >65 sedation to keep raas -1 to 0, prop, fent, versed, ketamine, add oral meds seroqeul, Librium methadone (propofol can go up to 66, precedex to 1.1) c/w TF c.w thiamine and folate start oral antiHTN c/w cadence and zyfox c/w heparin drip Repeat CT is reassuring as there is slight improvement Clinically patient appears stable from a GI point of view but has on going infection in and pulmonary issues Continue supportive care, continue tube feedings as tolerated Wound care Dietary Evaluation Review Comments: 1. TF: Vital AF@50ml/hr (90g protein, 1440kcal 973 free water) meeting Protein needs 83%, energy needs 80%. 2. TPN per pharmacy meeting 75% of his needs if TF not feasible or NPO>7 days. 3. Diet as tolerated per PHYSICAL THERAPY AID eval when off Vent Expected Outcomes/Goals: Preventing catabolism Plan discussed with: Other (None) MAO COLEMAN MD Jan 27, 2025 18:47
[2025-01-27] MEDS ORDERED: MUPIROCIN 2% OINT 15gm or 22gm FOR MRSA NARES EACHNOSTRI SCH (22:00)
[2025-01-28] VITALS (104 sets, daily range): BP systolic 86–155; BP diastolic 42–83; PULSE 13–127; RESP 9–44; TEMP 97–101.3; O2SAT 90–100
[2025-01-28 04:16] LABS: Hematocrit 25.2 % (41.0-53.0); Hemoglobin 8.6 g/dL (13.5-17.5); Mean Corpuscular Hemoglobin 29.4 pg (28.0-32.0); Mean Corpuscular Volume 86.2 fL (80.0-100.0); Nucleated Red Blood Cells % 0.0 %
[2025-01-28 04:23] LABS: Calcium 8.7 mg/dL (8.7-10.4); Chloride 99 mmol/L (98-107); Sodium 140 mmol/L (136-145)
[2025-01-28 04:24] LABS: Anion Gap 14 (5-15); Carbon Dioxide 27 mmol/L (20-31)
[2025-01-28 04:29] LABS: Glucose 103 mg/dL (74-106)
[2025-01-28 04:33] LABS: BUN/Creatinine Ratio 15.2 (10.0-20.0); Blood Urea Nitrogen < 5 mg/dL (9-23); INR 1.15 (0.9-1.15); Partial Thromboplastin Time 61.2 SEC (24.5-34.5); Potassium 3.1 mmol/L (3.5-5.1); Prothrombin Time 12.0 sec (9.3-11.8)
[2025-01-28 08:15] LABS: Base Excess 2.7 mmol/L (-2.0-3.0)
--- NOTE | 2025-01-28 08:29 | CONS ---
Pharmacy Clinical Information: HEPARIN DRIP, DVT PROTOCOL @03:20 APTT 61.2 - NO BOLUS / NO CHANGE 3 CONSECUTIVE APTT THERAPEUTIC => APTT EVERY 24 HRS NEXT APTT DRAW SCHEDULED @0500 PER RX PROTOCOL JIGNESH SARMIENTO [facility] RESIDENT Jan 28, 2025 08:29
[2025-01-28] MEDS: POTASSIUM CHL 20MEQ/100ML 100 ML IV SCH (08:50)
--- NOTE | 2025-01-28 09:45 | DVH ---
CHEST RADIOGRAPH Indication: on vent, b/l congestion Technique: Portable AP view of the chest was performed. Comparison: XY CHEST XRAY 1 VIEW on DOS: 01/26/25, XY CHEST XRAY 1 VIEW on DOS: 01/25/25, XY CHEST XRAY 1 VIEW on DOS: 01/24/25, XY CHEST XRAY 1 VIEW on DOS: 01/23/25, XY CHEST XRAY 1 VIEW on DOS: 01/22/25 FINDINGS: Tracheostomy tube, NG tube, feeding tube, and right upper extremity PICC line are re-identified. The re are diffuse bilateral interstitial opacities, yavgi-ylzhvgd-ccst-left, similar to that seen previo usly. There is blunting of the left costophrenic angle. No pneumothorax. The heart is not enlarged. IMPRESSION: No interval change.
--- NOTE | 2025-01-28 11:22 | ECG ---
[facility] Test Date: 2025-01-27 Test Time: 14:55:10 Pat Name: BARBRA TRUJILLO Department: icu Room: [address] [place] [address] A Gender: M [employer] Operator: jatinder : 1980 Requested By: BELLA PIPER Order Number: [id number] Reading MD: Adonis Sanchez Measurements Intervals [place] Rate: 94 P: 40 UT: 163 QRS: 35 QRSD: 84 T: 8 QT: 335 QTc: 419 Interpretive Statements Sinus rhythm Nonspecific T abnormalities, anterior leads Electronically Signed On 01-28-2025 18:43:27 PDT by Adonis Sanchez Please click the below link to view image of tracing.
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
--- NOTE | 2025-01-28 17:45 | DVHPN2 ---
Progress Note Date Seen: Jan 28, 2025 Resident Creating Document: SOPHIE LANDEROS RESIDENT Has the PT tested + for MRSA If YES, has PT been informed?: No Medical Necessity Reason Pt with a Central, PICC or Fol: Yes The following are medically ne: Navarrete Catheter Reason for navarrete catheter: Strict I&O Subjective Review of Systems Patient opens eyes but does not follow commands, abdomen soft, non distended, stoma viable with flatus in appliance, stable Wound granulating, good urine output, drains with minimal serous output, Hemoglobin stable at 8.6 No active GI bleeding reported Leukocytosis improving; thrombocytosis improving Patient is on multiple antibiotics Patient is being weaned off sedation On IV heparin for right arm DVT, PT INR therapeutic Patient running fevers with tachycardia, cooling blanket in place Increasing the sedation be because patient is getting aggressive The patient is still intubated via tracheostomy. NG tube secretions are 100 mL which are bolus and colostomy bag has 50 mL output. Objective vital signs Vital Sign Date Time Temp Pulse Resp B/P (MAP) Pulse Ox O2 Delivery O2 Flow Rate FiO2 01/28/25 16:15 100.6 112 38 130/67 (88) 96 213.1 01/28/25 16:00 Mechanical Ventilator+ 40 40 Total Intake and Output 01/27/25 01/27/25 01/28/25 15:00 23:00 07:00 Intake Total 1553.57 ml 1065.415 ml 1412.195 ml Output Total 1800 ml 1240 ml 1720 ml Balance -246.43 ml -174.585 ml -307.805 ml medications Current Medications Medications Dose Ordered Sig/Sherron Route Start Time Stop Time Status Last Admin Dose Admin Pantoprazole Sodium 40 mg DAILY IV 12/18/24 10:00 01/28/25 09:17 40 MG Midazolam HCl 50 ml @ 1 mls/hr Q24H IV 12/17/24 17:00 01/28/25 14:14 3 MLS/HR Valproate Sodium 250 mg/Sodium Chloride 52.5 ml @ 52.5 mls/hr BID IV 12/17/24 22:00 01/28/25 09:54 52.5 MLS/HR Propofol 100 ml @ 2.37 mls/hr Q24H IV 12/17/24 18:15 01/28/25 15:03 23.7 MLS/HR Norepinephrine Bitartrate 250 ml @ 3.75 mls/hr Q24H IV 12/18/24 01:45 01/26/25 23:15 3.75 MLS/HR Diagnostic Test (Pha) 1 strip Q6HR 12/20/24 18:00 01/28/25 11:26 1 STRIP Insulin Human Regular FOLLOW SLIDING SCALE Q6HR SC 12/20/24 18:00 01/06/25 05:34 2 UNITS Dextrose 50 ml UD IV 12/20/24 14:15 12/20/24 17:47 50 ML Sodium Chloride 40 meq/Potassium Chloride 40 meq/ Potassium Phosphate 11 meq/ Calcium Gluconate 2.3 meq/Magnesium Sulfate 8 meq/ Multivitamins 10 ml/Chromium/ Copper/Manganese/ Zinc 1 ml/Amino Acids/Dextrose/ Purified Water 1,450.4462 ml @ 60 mls/hr [id number] IV 12/26/24 22:00 12/27/24 21:59 Cancel Ipratropium [place] 0.5 mg Q6HR NEB 12/27/24 18:00 01/28/25 12:00 0.5 MG Levalbuterol HCl 1.25 mg Q6HR NEB 12/27/24 18:00 01/28/25 12:00 1.25 MG Sodium Chloride 10 ml QSHIFT@10,22 IV 12/27/24 22:00 01/28/25 09:29 10 ML Artificial Tears 1 drop Q6HP PRN EACHEYE 12/29/24 23:45 01/06/25 09:00 1 DROP Meropenem 50 ml @ 17 mls/hr Q8HR IV 12/31/24 14:00 01/28/25 14:12 17 MLS/HR Ketamine HCl 50 mg [id number] PRN IV 01/04/25 15:00 01/05/25 07:00 Cancel Sodium Chloride 120 meq/Potassium Chloride 50 meq/ Potassium Acetate 50 meq/Calcium Gluconate 4.65 meq/Magnesium Sulfate 34 meq/ Multivitamins 10 ml/Chromium/ Copper/Manganese/ Zinc 1 ml/Amino Acids/Dextrose/ Purified Water 1,659.5 ml @ 68.108 mls/hr [id number] IV 01/09/25 22:00 01/10/25 21:59 Cancel Sodium Chloride 100 meq/Potassium Chloride 50 meq/ Calcium Gluconate 4.65 meq/ Magnesium Sulfate 34 meq/ Multivitamins 10 ml/Chromium/ Copper/Manganese/ Zinc 1 ml/Sodium Phosphate 20 meq/ Potassium Acetate 50 meq/Amino Acids/Dextrose/ Purified Water 1,659.5 ml @ 68.537 mls/hr [id number] IV 01/09/25 09:30 01/09/25 21:59 Cancel Linezolid 300 ml @ 150 mls/hr Q12H IV 01/11/25 23:00 01/28/25 11:51 150 MLS/HR Ketamine HCl 1000 mg/Sodium Chloride 500 ml @ 2.91 mls/hr Q24H IV 01/13/25 18:30 01/27/25 15:39 27.645 MLS/HR Fentanyl Citrate 250 ml @ 2.5 mls/hr Q24H IV 01/14/25 12:45 01/28/25 16:03 30 MLS/HR Acetylcysteine 200 mg Q6HR NEB 01/18/25 12:00 01/28/25 12:00 200 MG Labetalol HCl 10 mg Q4HPRN PRN IV 01/18/25 17:15 01/26/25 11:43 10 MG Heparin Sodium/ Dextrose 250 ml @ 20 mls/hr [id number] IV 01/19/25 15:30 01/28/25 15:11 20 MLS/HR Lorazepam 1 mg ONCE PRN IV 01/19/25 22:45 Thiamine HCl 100 mg DAILY IV 01/20/25 10:00 01/28/25 09:17 100 MG Folic Acid 1 mg DAILY PO 01/20/25 10:00 01/28/25 09:57 1 MG Acetaminophen 650 mg Q6HP PRN GT 01/22/25 10:15 01/28/25 14:13 650 MG Micafungin Sodium 100 mg/Sodium Chloride 100 ml @ 100 mls/hr DAILY IV 01/23/25 10:00 01/28/25 09:53 100 MLS/HR Enteral Nutritional Formula 1,000 ml 50ML/HR GT 01/23/25 13:00 01/23/25 22:34 1,000 ML Fentanyl 50 mcg Q72H TD 01/23/25 17:00 01/23/25 17:14 50 MCG Furosemide 40 mg DAILY IV 01/25/25 10:00 01/28/25 09:57 40 MG Levetiracetam 100 ml @ 400 mls/hr BID IV 01/26/25 10:00 01/28/25 09:15 400 MLS/HR Quetiapine Fumarate 50 mg BID PO 01/26/25 22:00 01/28/25 09:58 50 MG Chlordiazepoxide HCl 50 mg BID PO 01/26/25 22:00 01/28/25 09:57 50 MG Carvedilol 3.125 mg Q12HR PO 01/26/25 22:00 Mupirocin 1 applic BID EACHNOSTRI 01/27/25 22:00 02/01/25 21:59 UNV Examination General Appearance: s/p trach on ventilator agitated, overbreathing, trashing around PERRLA MMM mechanical breath sounds s1 s2 tachy abdomen with surg scar and colostomy Abdominal: Binder in place, soft, distended, no bowel sounds; minimal colostomy liquid output Extremities: No clubbing, No cyanosis, No edema, Normal pulses, No tenderness/swelling laboratory and microbiology Laboratory Tests 01/28/25 03:20 Test 01/28/25 03:20 Range/Units Serum Glucose 103 74-106 mg/dL Microbiology Date/Time Source Procedure Growth Status 01/22/25 18:44 Blood Blood Culture - Final NO GROWTH AFTER 5 DAYS OF INCUBATION. Complete 01/18/25 14:15 Urine - Navarrete Port Urine Culture - Final Complete 01/18/25 10:40 Sputum Gram Stain - Final Complete 01/18/25 10:40 Sputum Respiratory Culture - Final Complete 01/05/25 08:15 Other Abscess Gram Stain - Final Complete 01/05/25 08:15 Other Abscess Anaerobic Culture - Final Complete 01/05/25 08:15 Aerobic Culture - Final Enterococcus faecium - VRE Complete 01/05/25 08:02 Peritoneal Fluid Gram Stain - Final Complete 01/05/25 08:02 Peritoneal Fluid Anaerobic Culture - Final Complete 01/05/25 08:02 Aerobic Culture - Final Enterococcus faecium - VRE Citrobacter freundii Vanc Resistant Enterococcus Complete Problem List/Assessment/Plan Problem List/Assessment/Plan Assessment 1. Postoperative status after laparotomy with colostomy and abscess drainage stable, signs of return of bowel function. 2. Enteral nutrition initiation (trickle feeds) tolerated with modest residuals; no signs of feeding intolerance or obstruction. 3. NG bile output expected in the context of early enteral feeding; continue monitoring for changes. 4. Colostomy function output stable, no ischemia or obstruction. 5. Sepsis from VRE/Citrobacter peritonitis improving on antibiotics. 6. TPN dependence continuing alongside trickle feeds. Treatment Plan Repeat CT is reassuring as there is slight improvement Clinically patient appears stable from a GI point of view but has on going infection in and pulmonary issues Continue supportive care, continue tube feedings as tolerated Wound care Gastrointestinal * Continue trickle feeding at 50mL/hr, reassess tolerance (residuals, abdominal exam) q12h. * Monitor NG drainage and residuals closely; aspirate if >250 mL or bilious output increases significantly. * Maintain NG tube decompression. * Continue Reglan IV q8h to aid GI motility. * Monitor colostomy output for volume, consistency, and viability. * Continue wound VAC care. Infectious Disease * Continue Meropenem, Fluconazole for ongoing treatment of peritonitis and abdominal sepsis. * Monitor cultures, WBC count, and temperature trends. Nutrition * Continue enteral feeds as tolerated. * Monitor electrolytes, albumin, and nutritional markers daily. Prophylaxis * Stress ulcer prophylaxis: Continue IV Pantoprazole. We will continue to monitor the patient. Case discussed in detail with the attending physician, including the clinical presentation, diagnostic workup, and comprehensive management plan. Plan discussed with: Other (RN) Dietary Evaluation Review Comments: 1. TF: Vital AF@50ml/hr (90g protein, 1440kcal 973 free water) meeting Protein needs 83%, energy needs 80%. 2. TPN per pharmacy meeting 75% of his needs if TF not feasible or NPO>7 days. 3. Diet as tolerated per GOPHERMAN eval when off Vent Expected Outcomes/Goals: Preventing catabolism SOPHIE LANDEROS RESIDENT Jan 28, 2025 17:45
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
[2025-01-28] MEDS: FUROSEMIDE 40 MG/4 ML VIAL IV ONE (22:15)
[2025-01-29] VITALS (109 sets, daily range): BP systolic 61–167; BP diastolic 15–99; PULSE 75–118; RESP 14–33; TEMP 98.6–100.4; O2SAT 93–100
[2025-01-29 04:21] LABS: Hematocrit 27.1 % (41.0-53.0); Hemoglobin 9.1 g/dL (13.5-17.5); Mean Corpuscular Hemoglobin 29.2 pg (28.0-32.0); Mean Corpuscular Volume 86.7 fL (80.0-100.0); Nucleated Red Blood Cells % 0.0 %
[2025-01-29 04:35] LABS: INR 1.18 (0.9-1.15); Partial Thromboplastin Time 55.0 SEC (24.5-34.5); Prothrombin Time 12.3 sec (9.3-11.8)
[2025-01-29 04:41] LABS: Alanine Aminotransferase 15 U/L (7-40); Albumin 3.7 g/dL (3.2-4.8); Alkaline Phosphatase 105 U/L (46-116); Anion Gap 16 (5-15); Calcium 9.0 mg/dL (8.7-10.4); Carbon Dioxide 27 mmol/L (20-31); Glucose 91 mg/dL (74-106); Sodium 139 mmol/L (136-145); Total Protein 6.9 g/dL (5.7-8.2)
[2025-01-29 04:50] LABS: BUN/Creatinine Ratio 13.9 (10.0-20.0); Bilirubin, Total 0.2 mg/dL (0.2-1.0); Blood Urea Nitrogen < 5 mg/dL (9-23); Chloride 96 mmol/L (98-107); Magnesium 1.5 mg/dL (1.6-2.6); Potassium 2.8 mmol/L (3.5-5.1)
--- NOTE | 2025-01-29 04:59 | DVH ---
CHEST RADIOGRAPH Indication: on vent Technique: Portable AP view of the chest was performed. COMPARISON: XY CHEST XRAY 1 VIEW on DOS: 01/28/25, XY CHEST XRAY 1 VIEW on DOS: 01/26/25, XY CHEST XRAY 1 VIEW on DOS: 01/25/25, XY CHEST XRAY 1 VIEW on DOS: 01/24/25, XY CHEST XRAY 1 VIEW on DOS: 01/23/25, XY C HEST XRAY 1 VIEW on DOS: 01/28/25 FINDINGS: Tracheostomy tube, NG tube, feeding tube, and right upper extremity PICC line are re-identified. The re are diffuse bilateral interstitial opacities, [id number], similar to that seen previo usly. There is blunting of the left costophrenic angle. No pneumothorax. The heart is not enlarged. IMPRESSION: No interval change.
[2025-01-29 08:24] LABS: Base Excess 5.6 mmol/L (-2.0-3.0)
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
[2025-01-29] MEDS: MAGNESIUM SULFATE 1GM/100ML 100 ML IV SCH (11:30)
[2025-01-29] MEDS: POTASSIUM CHL 20MEQ/100ML 100 ML IV SCH ×2 (12:28→21:40)
--- NOTE | 2025-01-29 15:27 | DVHPN2 ---
Progress Note Date Seen: Jan 29, 2025 Resident Creating Document: SOPHIE LANDEROS RESIDENT Has the PT tested + for MRSA If YES, has PT been informed?: No Medical Necessity Reason Pt with a Central, PICC or Fol: Yes The following are medically ne: Navarrete Catheter Reason for navarrete catheter: Strict I&O Subjective Review of Systems Today's progress Gastric output-300 mL bolus drainage of 24 hours. Colostomy output 150 mL stool over 24 hours, no gross blood. Feeding receiving post pyloric tube feeds at 30 mL/hour, tolerating without significant residuals or abdominal distention. Planning to remove the NG tube tomorrow. WBC count normalized to 9.0, hemoglobin improved to 9.1, platelets elevated with persistent thrombocytosis. Patient is sedated and currently on tracheostomy tube with intubation Objective vital signs Vital Sign Date Time Temp Pulse Resp B/P (MAP) Pulse Ox O2 Delivery O2 Flow Rate FiO2 01/29/25 15:15 99.7 88 26 135/77 (96) 96 211.5 01/29/25 15:09 30 01/29/25 14:00 Mechanical Ventilator+ Total Intake and Output 01/28/25 01/28/25 01/29/25 15:00 23:00 07:00 Intake Total 1370.513 ml 992.04 ml 1611.71 ml Output Total 2500 ml 2565 ml Balance 1370.513 ml -1507.96 ml -953.29 ml medications Current Medications Medications Dose Ordered Sig/Sherron Route Start Time Stop Time Status Last Admin Dose Admin Pantoprazole Sodium 40 mg DAILY IV 12/18/24 10:00 01/29/25 09:02 40 MG Midazolam HCl 50 ml @ 1 mls/hr Q24H IV 12/17/24 17:00 01/29/25 08:34 5 MLS/HR Valproate Sodium 250 mg/Sodium Chloride 52.5 ml @ 52.5 mls/hr BID IV 12/17/24 22:00 01/29/25 09:05 52.5 MLS/HR Propofol 100 ml @ 2.37 mls/hr Q24H IV 12/17/24 18:15 01/29/25 14:01 23.7 MLS/HR Norepinephrine Bitartrate 250 ml @ 3.75 mls/hr Q24H IV 12/18/24 01:45 01/29/25 12:32 3.75 MLS/HR Diagnostic Test (Pha) 1 strip Q6HR 12/20/24 18:00 01/29/25 11:38 1 STRIP Insulin Human Regular FOLLOW SLIDING SCALE Q6HR SC 12/20/24 18:00 01/06/25 05:34 2 UNITS Dextrose 50 ml UD IV 12/20/24 14:15 12/20/24 17:47 50 ML Sodium Chloride 40 meq/Potassium Chloride 40 meq/ Potassium Phosphate 11 meq/ Calcium Gluconate 2.3 meq/Magnesium Sulfate 8 meq/ Multivitamins 10 ml/Chromium/ Copper/Manganese/ Zinc 1 ml/Amino Acids/Dextrose/ Purified Water 1,450.4462 ml @ 60 mls/hr [id number] IV 12/26/24 22:00 12/27/24 21:59 Cancel Ipratropium [place] 0.5 mg Q6HR NEB 12/27/24 18:00 01/29/25 12:43 0.5 MG Levalbuterol HCl 1.25 mg Q6HR NEB 12/27/24 18:00 01/29/25 12:43 1.25 MG Sodium Chloride 10 ml QSHIFT@10,22 IV 12/27/24 22:00 01/29/25 09:10 10 ML Artificial Tears 1 drop Q6HP PRN EACHEYE 12/29/24 23:45 01/06/25 09:00 1 DROP Meropenem 50 ml @ 17 mls/hr Q8HR IV 12/31/24 14:00 01/29/25 13:57 17 MLS/HR Ketamine HCl 50 mg [id number] PRN IV 01/04/25 15:00 01/05/25 07:00 Cancel Sodium Chloride 120 meq/Potassium Chloride 50 meq/ Potassium Acetate 50 meq/Calcium Gluconate 4.65 meq/Magnesium Sulfate 34 meq/ Multivitamins 10 ml/Chromium/ Copper/Manganese/ Zinc 1 ml/Amino Acids/Dextrose/ Purified Water 1,659.5 ml @ 68.108 mls/hr [id number] IV 01/09/25 22:00 01/10/25 21:59 Cancel Sodium Chloride 100 meq/Potassium Chloride 50 meq/ Calcium Gluconate 4.65 meq/ Magnesium Sulfate 34 meq/ Multivitamins 10 ml/Chromium/ Copper/Manganese/ Zinc 1 ml/Sodium Phosphate 20 meq/ Potassium Acetate 50 meq/Amino Acids/Dextrose/ Purified Water 1,659.5 ml @ 68.537 mls/hr [id number] IV 01/09/25 09:30 01/09/25 21:59 Cancel Linezolid 300 ml @ 150 mls/hr Q12H IV 01/11/25 23:00 01/29/25 10:31 150 MLS/HR Ketamine HCl 1000 mg/Sodium Chloride 500 ml @ 2.91 mls/hr Q24H IV 01/13/25 18:30 01/27/25 15:39 27.645 MLS/HR Fentanyl Citrate 250 ml @ 2.5 mls/hr Q24H IV 01/14/25 12:45 01/29/25 14:06 30 MLS/HR Acetylcysteine 200 mg Q6HR NEB 01/18/25 12:00 01/29/25 12:43 200 MG Labetalol HCl 10 mg Q4HPRN PRN IV 01/18/25 17:15 01/26/25 11:43 10 MG Heparin Sodium/ Dextrose 250 ml @ 20 mls/hr [id number] IV 01/19/25 15:30 01/29/25 15:09 20 MLS/HR Lorazepam 1 mg ONCE PRN IV 01/19/25 22:45 Thiamine HCl 100 mg DAILY IV 01/20/25 10:00 01/29/25 09:09 100 MG Folic Acid 1 mg DAILY PO 01/20/25 10:00 01/29/25 09:49 1 MG Acetaminophen 650 mg Q6HP PRN GT 01/22/25 10:15 01/29/25 09:50 650 MG Micafungin Sodium 100 mg/Sodium Chloride 100 ml @ 100 mls/hr DAILY IV 01/23/25 10:00 01/29/25 09:03 100 MLS/HR Enteral Nutritional Formula 1,000 ml 50ML/HR GT 01/23/25 13:00 01/23/25 22:34 1,000 ML Fentanyl 50 mcg Q72H TD 01/23/25 17:00 01/23/25 17:14 50 MCG Furosemide 40 mg DAILY IV 01/25/25 10:00 01/29/25 09:10 40 MG Levetiracetam 100 ml @ 400 mls/hr BID IV 01/26/25 10:00 01/29/25 08:36 400 MLS/HR Quetiapine Fumarate 50 mg BID PO 01/26/25 22:00 01/29/25 09:49 50 MG Chlordiazepoxide HCl 50 mg BID PO 01/26/25 22:00 01/29/25 09:49 50 MG Mupirocin 1 applic BID EACHNOSTRI 01/27/25 22:00 02/01/25 21:59 UNV Potassium Chloride 100 ml @ 50 mls/hr Q2H IV 01/29/25 11:00 01/29/25 16:59 01/29/25 14:35 50 MLS/HR Examination ABDOMEN-SOFT, NONDISTENDED, NO RIGIDITY OR GUARDING. BOWEL SOUNDS PRESENT. COLOSTOMY-VIABLE, OUTPUT 150 ML STOOL. FEEDING TUBE POST PYLORIC, RUNNING AT 30 ML/HOUR. NO INTOLERANCE SIGNS. NG, DRAIN SITES CLEAN, FUNCTION, NG WITH 350 ML BOLUS DRAINAGE. laboratory and microbiology Laboratory Tests 01/29/25 03:17 Test 01/29/25 03:17 Range/Units Serum Glucose 91 74-106 mg/dL Microbiology Date/Time Source Procedure Growth Status 01/22/25 18:44 Blood Blood Culture - Final NO GROWTH AFTER 5 DAYS OF INCUBATION. Complete 01/18/25 14:15 Urine - Navarrete [place] Urine Culture - Final Complete 01/18/25 10:40 Sputum Gram Stain - Final Complete 01/18/25 10:40 Sputum Respiratory Culture - Final Complete 01/05/25 08:15 Other Abscess Gram Stain - Final Complete 01/05/25 08:15 Other Abscess Anaerobic Culture - Final Complete 01/05/25 08:15 Aerobic Culture - Final Enterococcus faecium - VRE Complete 01/05/25 08:02 Peritoneal Fluid Gram Stain - Final Complete 01/05/25 08:02 Peritoneal Fluid Anaerobic Culture - Final Complete 01/05/25 08:02 Aerobic Culture - Final Enterococcus faecium - VRE Citrobacter freundii Vanc Resistant Enterococcus Complete Problem List/Assessment/Plan Problem List/Assessment/Plan Assessment 1. Postoperative status after laparotomy with colostomy and abscess drainage stable, signs of return of bowel function. 2. Enteral nutrition initiation (trickle feeds) tolerated with modest residuals; no signs of feeding intolerance or obstruction. 3. NG bile output expected in the context of early enteral feeding; continue monitoring for changes. 4. Colostomy function output stable, no ischemia or obstruction. 5. Sepsis from VRE/Citrobacter peritonitis improving on antibiotics. 6. TPN dependence continuing alongside trickle feeds. Treatment Plan Repeat CT is reassuring as there is slight improvement Clinically patient appears stable from a GI point of view but has ongoing infection and pulmonary issues Continue supportive care, continue tube feedings as tolerated Wound care Gastrointestinal * Continue trickle feeding at 50mL/hr, reassess tolerance (residuals, abdominal exam) q12h. * Monitor NG drainage and residuals closely; aspirate if >250 mL or bilious output increases significantly. * Maintain NG tube decompression. * Continue Reglan IV q8h to aid GI motility. * Monitor colostomy output for volume, consistency, and viability. * Continue wound VAC care. Infectious Disease * Continue Meropenem, Fluconazole for ongoing treatment of peritonitis and abdominal sepsis. * Monitor cultures, WBC count, and temperature trends. Nutrition * Continue enteral feeds as tolerated. * Monitor electrolytes, albumin, and nutritional markers daily. Prophylaxis * Stress ulcer prophylaxis: Continue IV Pantoprazole. We will continue to monitor the patient. Case discussed in detail with the attending physician, including the clinical presentation, diagnostic workup, and comprehensive management plan. Plan discussed with: Other (RN) Dietary Evaluation Review Comments: 1. TF: Vital AF@50ml/hr (90g protein, 1440kcal 973 free water) meeting Protein needs 83%, energy needs 80%. 2. TPN per pharmacy meeting 75% of his needs if TF not feasible or NPO>7 days. 3. Diet as tolerated per PROPERTY CONDITION ASSESSOR eval when off Vent Expected Outcomes/Goals: Preventing catabolism SOPHIE LANDEROS RESIDENT Jan 29, 2025 15:27
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
[2025-01-29] MEDS: FUROSEMIDE 40 MG/4 ML VIAL IV ONE (21:34)
[2025-01-30] VITALS (108 sets, daily range): BP systolic 75–198; BP diastolic 39–109; PULSE 76–175; RESP 15–49; TEMP 98.2–102.9; O2SAT 84–100
[2025-01-30 03:28] LABS: Hematocrit 28.3 % (41.0-53.0); Hemoglobin 9.4 g/dL (13.5-17.5); Mean Corpuscular Hemoglobin 28.1 pg (28.0-32.0); Mean Corpuscular Volume 84.7 fL (80.0-100.0); Nucleated Red Blood Cells % 0.0 %
[2025-01-30 03:40] LABS: Chloride 98 mmol/L (98-107); Sodium 140 mmol/L (136-145)
[2025-01-30 03:41] LABS: Anion Gap 11 (5-15); Calcium 9.0 mg/dL (8.7-10.4); INR 1.37 (0.9-1.15); Partial Thromboplastin Time 61.0 SEC (24.5-34.5); Prothrombin Time 14.1 sec (9.3-11.8)
[2025-01-30 03:47] LABS: Magnesium 1.8 mg/dL (1.6-2.6)
[2025-01-30 03:55] LABS: Carbon Dioxide 31 mmol/L (20-31); Glucose 109 mg/dL (74-106); Potassium 3.4 mmol/L (3.5-5.1)
[2025-01-30 03:56] LABS: BUN/Creatinine Ratio 11.9 (10.0-20.0); Blood Urea Nitrogen < 5 mg/dL (9-23)
--- NOTE | 2025-01-30 05:02 | DVH ---
CHEST RADIOGRAPH Indication: b/l congestion Technique: Single frontal view of the chest was obtained Comparison: XY CHEST XRAY 1 VIEW on DOS: 01/29/25, XY CHEST XRAY 1 VIEW on DOS: 01/28/25, XY CHEST XRAY 1 VIEW on DOS: 01/26/25, XY CHEST XRAY 1 VIEW on DOS: 01/25/25, XY CHEST XRAY 1 VIEW on DOS: 01/24/25 FINDINGS: Lines and Tubes: Tracheostomy tube noted Lungs: Extensive pulmonary edema. Underlying focal consolidations not excluded. Pleura: No effusion. No pneumothorax. Cardiomediastinal contours: Stable cardiomegaly Bones: No acute osseous abnormality. IMPRESSION: 1. Stable extensive pulmonary edema. Underlying focal consolidations not excluded.
[2025-01-30] MEDS: POTASSIUM CHL 20MEQ/100ML 100 ML IV ONE ×2 (05:06→13:01)
--- NOTE | 2025-01-30 07:11 | DVHNC2 ---
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) Indication: Hypotension, Inability to obtain IV, Relpace: line malfunction Room prepared for procedure: Yes [employer] performed hand hygien: Yes Maximal sterile barrier precau: Mask/Eye shield, Sterile gown, Cap, Sterlie gloves, Large sterlie drape Skin Preparation: Chlorhexidine gluconate, Providine iodine Skin preparation completely dr: Yes Insertion site: Left, Femoral Central line catheter type: [id number] dialysis Number of lumens: 3 Central line exchanged over a: No Antiseptic ointment applied to: Yes Informed consent obtained: Yes Date of Service: Jan 28, 2025 Billing Provider: MARIELA PÉREZ MD Common Visit Codes: PROCEDURE ONLY Procedure Codes: [id number] NON-TUNNEL CV CATH OLGA ZEE RESIDENT Jan 30, 2025 07:11 MARIELA PÉREZ MD Feb 02, 2025 12:10
--- NOTE | 2025-01-30 08:05 | ECG ---
[facility] Test Date: 2025-01-30 Test Time: 08:04:23 Pat Name: BARBRA TRUJILLO Department: icu Room: [address] [place] [address] A Gender: M Noise Tester: beau urrutia : 1980 Requested By: OLGA ZEE Order Number: [id number] Reading MD: Adonis Sanchez Measurements Intervals [place] Rate: 95 P: 44 CA: 152 QRS: 73 QRSD: 80 T: 56 QT: 354 QTc: 445 Interpretive Statements Sinus rhythm Artifact in lead(s) V2 and baseline wander in lead(s) V2 Electronically Signed On 02-04-2025 22:13:07 PDT by Adonis Sanchez Please click the below link to view image of tracing.
[2025-01-30] MEDS: HALOPERIDOL LACTATE 5 MG/ML INJ VIAL IM ONE ×3 (08:09→14:30)
--- NOTE | 2025-01-30 08:42 | CONS ---
Pharmacy Clinical Information: HEPARIN DRIP, DVT PROTOCOL @02:42 APTT 61 - NO BOLUS / NO CHANGE 3 CONSECUTIVE APTT THERAPEUTIC => APTT EVERY 24 HRS NEXT APTT DRAW SCHEDULED @0400 PER RX PROTOCOL CONFIRMED AND READ BACK WITH [facility] Jan 30, 2025 08:42
[2025-01-30] MEDS: diphenhdrAMINE HCL 50 MG/1 ML VL IV ONE ×2 (08:55→14:45)
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
[2025-01-30] MEDS: HALOPERIDOL LACTATE 5 MG/ML INJ VIAL ONE ×2 (13:56→14:31)
[2025-01-30] MEDS: LORazepam 2MG/ML-1ML VIAL ONE (14:10)
[2025-01-30] MEDS: LORazepam 2MG/ML-1ML VIAL IV ONE (14:12)
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
[2025-01-30] MEDS: diphenhdrAMINE HCL 50 MG/1 ML VL ONE (14:45)
[2025-01-30] MEDS: HALOPERIDOL LACTATE 5 MG/ML INJ VIAL IV ONE ×2 (15:45→16:30)
[2025-01-30] MEDS: cloNIDine 0.2 mg/24hr 7DAY PATCH TD ONE (16:42)
--- NOTE | 2025-01-30 16:59 | DVHPN2 ---
Progress Note Date Seen: Jan 30, 2025 Resident Creating Document: SOPHIE LANDEROS RESIDENT Has the PT tested + for MRSA If YES, has PT been informed?: No Medical Necessity Reason Pt with a Central, PICC or Fol: Yes The following are medically ne: Navarrete Catheter Reason for navarrete catheter: Strict I&O Subjective Review of Systems Today's progress The patient is in ICU with ongoing sedation weaning. Versed and ketamine were discontinued today, currently on norepinephrine and fentanyl. The patient is not yet extubated. ICU team plans for trach collar tomorrow if tolerated Colostomy output is 30 mL over the last 24 hours, no gross blood, semi formed stool. NG tube removed. Feeding via post pyloric feeding tube at 50 mL/hour, tolerated well without significant residuals or signs of intolerance. No reported abdominal distention, emesis or GI bleeding. Objective vital signs Vital Sign Date Time Temp Pulse Resp B/P (MAP) Pulse Ox O2 Delivery O2 Flow Rate FiO2 01/30/25 16:42 173/99 01/30/25 15:00 151 26 95 01/30/25 14:00 30 01/30/25 14:00 Mechanical Ventilator+ 01/30/25 12:30 99.9 211.8 Total Intake and Output 01/29/25 01/29/25 01/30/25 14:59 22:59 06:59 Intake Total 1678.25 ml 1235.00 ml 1659.83 ml Output Total 2515 ml 3020 ml Balance 1678.25 ml -1280.00 ml -1360.17 ml medications Current Medications Medications Dose Ordered Sig/Sherron Route Start Time Stop Time Status Last Admin Dose Admin Pantoprazole Sodium 40 mg DAILY IV 12/18/24 10:00 01/30/25 09:33 40 MG Midazolam HCl 50 ml @ 1 mls/hr Q24H IV 12/17/24 17:00 01/29/25 20:36 4 MLS/HR Valproate Sodium 250 mg/Sodium Chloride 52.5 ml @ 52.5 mls/hr BID IV 12/17/24 22:00 01/30/25 09:19 52.5 MLS/HR Propofol 100 ml @ 2.37 mls/hr Q24H IV 12/17/24 18:15 01/30/25 10:01 23.7 MLS/HR Norepinephrine Bitartrate 250 ml @ 3.75 mls/hr Q24H IV 12/18/24 01:45 01/29/25 12:32 3.75 MLS/HR Diagnostic Test (Pha) 1 strip Q6HR 12/20/24 18:00 01/30/25 12:41 1 STRIP Insulin Human Regular FOLLOW SLIDING SCALE Q6HR SC 12/20/24 18:00 01/30/25 00:49 2 UNITS Dextrose 50 ml UD IV 12/20/24 14:15 12/20/24 17:47 50 ML Sodium Chloride 40 meq/Potassium Chloride 40 meq/ Potassium Phosphate 11 meq/ Calcium Gluconate 2.3 meq/Magnesium Sulfate 8 meq/ Multivitamins 10 ml/Chromium/ Copper/Manganese/ Zinc 1 ml/Amino Acids/Dextrose/ Purified Water 1,450.4462 ml @ 60 mls/hr [id number] IV 12/26/24 22:00 12/27/24 21:59 Cancel Ipratropium [place] 0.5 mg Q6HR NEB 12/27/24 18:00 01/30/25 11:56 0.5 MG Levalbuterol HCl 1.25 mg Q6HR NEB 12/27/24 18:00 01/30/25 11:56 1.25 MG Sodium Chloride 10 ml QSHIFT@10,22 IV 12/27/24 22:00 01/30/25 09:35 10 ML Artificial Tears 1 drop Q6HP PRN EACHEYE 12/29/24 23:45 01/06/25 09:00 1 DROP Meropenem 50 ml @ 17 mls/hr Q8HR IV 12/31/24 14:00 01/30/25 14:54 17 MLS/HR Ketamine HCl 50 mg [id number] PRN IV 01/04/25 15:00 01/05/25 07:00 Cancel Sodium Chloride 120 meq/Potassium Chloride 50 meq/ Potassium Acetate 50 meq/Calcium Gluconate 4.65 meq/Magnesium Sulfate 34 meq/ Multivitamins 10 ml/Chromium/ Copper/Manganese/ Zinc 1 ml/Amino Acids/Dextrose/ Purified Water 1,659.5 ml @ 68.108 mls/hr [id number] IV 01/09/25 22:00 01/10/25 21:59 Cancel Sodium Chloride 100 meq/Potassium Chloride 50 meq/ Calcium Gluconate 4.65 meq/ Magnesium Sulfate 34 meq/ Multivitamins 10 ml/Chromium/ Copper/Manganese/ Zinc 1 ml/Sodium Phosphate 20 meq/ Potassium Acetate 50 meq/Amino Acids/Dextrose/ Purified Water 1,659.5 ml @ 68.537 mls/hr [id number] IV 01/09/25 09:30 01/09/25 21:59 Cancel Linezolid 300 ml @ 150 mls/hr Q12H IV 01/11/25 23:00 01/30/25 10:56 150 MLS/HR Ketamine HCl 1000 mg/Sodium Chloride 500 ml @ 2.91 mls/hr Q24H IV 01/13/25 18:30 01/27/25 15:39 27.645 MLS/HR Fentanyl Citrate 250 ml @ 2.5 mls/hr Q24H IV 01/14/25 12:45 01/30/25 15:22 30 MLS/HR Acetylcysteine 200 mg Q6HR NEB 01/18/25 12:00 01/30/25 11:56 200 MG Labetalol HCl 10 mg Q4HPRN PRN IV 01/18/25 17:15 01/26/25 11:43 10 MG Heparin Sodium/ Dextrose 250 ml @ 20 mls/hr [id number] IV 01/19/25 15:30 01/30/25 05:06 20 MLS/HR Lorazepam 1 mg ONCE PRN IV 01/19/25 22:45 Thiamine HCl 100 mg DAILY IV 01/20/25 10:00 01/30/25 09:35 100 MG Folic Acid 1 mg DAILY PO 01/20/25 10:00 01/30/25 09:43 1 MG Acetaminophen 650 mg Q6HP PRN GT 01/22/25 10:15 01/29/25 09:50 650 MG Micafungin Sodium 100 mg/Sodium Chloride 100 ml @ 100 mls/hr DAILY IV 01/23/25 10:00 01/30/25 09:37 100 MLS/HR Enteral Nutritional Formula 1,000 ml 50ML/HR GT 01/23/25 13:00 01/29/25 17:45 1,000 ML Furosemide 40 mg DAILY IV 01/25/25 10:00 01/30/25 09:34 40 MG Levetiracetam 100 ml @ 400 mls/hr BID IV 01/26/25 10:00 01/30/25 09:27 400 MLS/HR Mupirocin 1 applic BID EACHNOSTRI 01/27/25 22:00 02/01/25 21:59 UNV Examination Abdomen-soft, nondistended, no rigidity or guarding. Bowel sounds-present. Colostomy-viable, 30 mL semi formed stool output in 24 hours. Feeding tube-post pyloric, infusion at 50 mL/hour, no intolerance sign. laboratory and microbiology Laboratory Tests 01/30/25 02:42 Test 01/30/25 02:42 Range/Units Serum Glucose 109 H 74-106 mg/dL Microbiology Date/Time Source Procedure Growth Status 01/22/25 18:44 Blood Blood Culture - Final NO GROWTH AFTER 5 DAYS OF INCUBATION. Complete 01/18/25 14:15 Urine - Navarrete Port Urine Culture - Final Complete 01/18/25 10:40 Sputum Gram Stain - Final Complete 01/18/25 10:40 Sputum Respiratory Culture - Final Complete 01/05/25 08:15 Other Abscess Gram Stain - Final Complete 01/05/25 08:15 Other Abscess Anaerobic Culture - Final Complete 01/05/25 08:15 Aerobic Culture - Final Enterococcus faecium - VRE Complete 01/05/25 08:02 Peritoneal Fluid Gram Stain - Final Complete 01/05/25 08:02 Peritoneal Fluid Anaerobic Culture - Final Complete 01/05/25 08:02 Aerobic Culture - Final Enterococcus faecium - VRE Citrobacter freundii Vanc Resistant Enterococcus Complete Problem List/Assessment/Plan Problem List/Assessment/Plan Assessment 1. Postoperative status after laparotomy with colostomy and abscess drainage stable, signs of return of bowel function. 2. Enteral nutrition initiation (trickle feeds) tolerated with modest residuals; no signs of feeding intolerance or obstruction. 3. NG bile output expected in the context of early enteral feeding; continue monitoring for changes. 4. Colostomy function output stable, no ischemia or obstruction. 5. Sepsis from VRE/Citrobacter peritonitis improving on antibiotics. 6. TPN dependence continuing alongside trickle feeds. Treatment Plan Repeat CT is reassuring as there is slight improvement Clinically patient appears stable from a GI point of view but has ongoing infection and pulmonary issues Continue supportive care, continue tube feedings as tolerated Wound care Gastrointestinal * Continue trickle feeding at 50mL/hr, reassess tolerance (residuals, abdominal exam) q12h. * Monitor NG drainage and residuals closely; aspirate if >250 mL or bilious output increases significantly. * Maintain NG tube decompression. * Continue Reglan IV q8h to aid GI motility. * Monitor colostomy output for volume, consistency, and viability. * Continue wound VAC care. Infectious Disease * Continue ANTIBIOTICS * Monitor cultures, WBC count, and temperature trends. Nutrition * Continue enteral feeds as tolerated. * Monitor electrolytes, albumin, and nutritional markers daily. Prophylaxis * Stress ulcer prophylaxis: Continue IV Pantoprazole. We will continue to monitor the patient. Case discussed in detail with the attending physician, including the clinical presentation, diagnostic workup, and comprehensive management plan. Plan discussed with: Other (RN) Dietary Evaluation Review Comments: 1. TF: Vital AF@50ml/hr (90g protein, 1440kcal 973 free water) meeting Protein needs 83%, energy needs 80%. 2. TPN per pharmacy meeting 75% of his needs if TF not feasible or NPO>7 days. 3. Diet as tolerated per [employer] eval when off Vent Expected Outcomes/Goals: Preventing catabolism SOPHIE LANDEROS RESIDENT Jan 30, 2025 16:59
[2025-01-30] MEDS: MIDAZOLAM HCL 5 MG/ML-1ML VIAL ONE (17:05)
[2025-01-30] MEDS: MIDAZOLAM HCL 5 MG/ML-1ML VIAL IV ONE ×2 (17:15→19:41)
[2025-01-30] MEDS: MAGNESIUM SULFATE 1GM/100ML 100 ML IV ONE (19:01)
[2025-01-30] MEDS: POTASSIUM CHL 20MEQ/100ML 100 ML IV SCH (19:01)
[2025-01-30] MEDS: NOREPINEPHRINE 8 MG/250ML KIT 250 ML IV SCH (19:15)
[2025-01-30] MEDS: HALOPERIDOL LACTATE 5 MG/ML INJ VIAL IM SCH (22:58)
[2025-01-31] VITALS (105 sets, daily range): BP systolic 90–161; BP diastolic 48–94; PULSE 68–111; RESP 11–34; TEMP 96.6–99.3; O2SAT 66–100
[2025-01-31 04:43] LABS: Hematocrit 27.4 % (41.0-53.0); Hemoglobin 9.1 g/dL (13.5-17.5); Mean Corpuscular Hemoglobin 28.4 pg (28.0-32.0); Mean Corpuscular Volume 85.5 fL (80.0-100.0); Nucleated Red Blood Cells % 0.1 %
[2025-01-31 05:13] LABS: Alanine Aminotransferase 15 U/L (7-40); Albumin 3.5 g/dL (3.2-4.8); Alkaline Phosphatase 90 U/L (46-116); Anion Gap 12 (5-15); Calcium 9.0 mg/dL (8.7-10.4); Carbon Dioxide 29 mmol/L (20-31); Chloride 99 mmol/L (98-107); Magnesium 1.7 mg/dL (1.6-2.6); Potassium 3.6 mmol/L (3.5-5.1); Sodium 140 mmol/L (136-145); Total Protein 6.6 g/dL (5.7-8.2)
[2025-01-31 05:15] LABS: INR 1.16 (0.9-1.15); Partial Thromboplastin Time 65.0 SEC (24.5-34.5); Prothrombin Time 12.1 sec (9.3-11.8)
[2025-01-31 05:16] LABS: Glucose 118 mg/dL (74-106)
[2025-01-31 05:17] LABS: BUN/Creatinine Ratio 11.9 (10.0-20.0); Bilirubin, Total 0.2 mg/dL (0.2-1.0); Blood Urea Nitrogen < 5 mg/dL (9-23)
--- NOTE | 2025-01-31 05:45 | DVH ---
CHEST RADIOGRAPH Indication: on vent Technique: Single frontal view of the chest was obtained COMPARISON: XY CHEST XRAY 1 VIEW on DOS: 01/30/25, XY CHEST XRAY 1 VIEW on DOS: 01/29/25, XY CHEST XRAY 1 VIEW on DOS: 01/28/25, XY CHEST XRAY 1 VIEW on DOS: 01/26/25, XY CHEST XRAY 1 VIEW on DOS: 01/25/25 FINDINGS: Lines and Tubes: Interval removal of enteric catheter. Tracheostomy unchanged. Lungs: Stable appearing multifocal bilateral parenchymal airspace disease, frjkh-rfiweci-mxnr-left, w ith consolidative foci within the right apex and base. Pleura: No effusion. No pneumothorax. Cardiomediastinal contours: Unremarkable Bones: Unremarkable IMPRESSION: 1. Stable appearing multifocal bilateral parenchymal airspace disease, [id number]-mcqzlfm-zrrb-left, with right apical and basilar consolidative foci. 2. Interval removal of enteric catheter. 3. Stable tracheostomy.
[2025-01-31] MEDS: diphenhdrAMINE HCL 50 MG/1 ML VL IV PRN (06:20)
[2025-01-31 06:50] LABS: Base Excess 6.3 mmol/L (-2.0-3.0)
[2025-01-31] MEDS: MAGNESIUM SULFATE 1GM/100ML 100 ML IV SCH (08:24)
--- NOTE | 2025-01-31 09:14 | CONS ---
Pharmacy Clinical Information: HEPARIN DRIP, DVT PROTOCOL @03:17 APTT 65 - NO BOLUS / NO CHANGE 3 CONSECUTIVE APTT THERAPEUTIC => APTT EVERY 24 HRS NEXT APTT DRAW SCHEDULED @0400 PER RX PROTOCOL CONFIRMED AND READ BACK WITH AISHA YEH,[facility] RESIDENT Jan 31, 2025 09:14
--- NOTE | 2025-01-31 10:23 | DVH ---
CHEST RADIOGRAPH Indication: NG tube placement Technique: Single frontal view of the chest was obtained Comparison: XY CHEST XRAY 1 VIEW on DOS: 01/31/25, XY CHEST XRAY 1 VIEW on DOS: 01/30/25, XY CHEST XRAY 1 VIEW on DOS: 01/29/25, XY CHEST XRAY 1 VIEW on DOS: 01/28/25, XY CHEST XRAY 1 VIEW on DOS: 01/26/25, X Y CHEST XRAY 1 VIEW on DOS: 01/31/25 FINDINGS: Lines and Tubes: Interval removal of enteric catheter. Tracheostomy unchanged. Lungs: Stable appearing multifocal bilateral parenchymal airspace disease, qjgmb-jvxynzu-ygrs-left, w ith consolidative foci within the right apex and base. Pleura: No effusion. No pneumothorax. Cardiomediastinal contours: Unremarkable Bones: Unremarkable IMPRESSION: No interval change
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
[2025-01-31] MEDS: POTASSIUM CHL 20MEQ/100ML 100 ML IV SCH (11:55)
[2025-01-31] MEDS: HALOPERIDOL LACTATE 5 MG/ML INJ VIAL IM SCH (13:40)
--- NOTE | 2025-01-31 15:02 | DVHPN2 ---
Progress Note Date Seen: Jan 31, 2025 Resident Creating Document: SOPHIE LANDEROS RESIDENT Has the PT tested + for MRSA If YES, has PT been informed?: No Medical Necessity Reason Pt with a Central, PICC or Fol: Yes The following are medically ne: Navarrete Catheter Reason for navarrete catheter: Strict I&O Subjective Review of Systems Today's progress GI status stable but with minimal colostomy output. NGT discontinued Tube feeds restarted via DobHoff Enteral nutrition . No evidence of GI bleeding or acute obstruction. Will monitor closely for tolerance of feeds and return of stoma output. Still on sedation and intubated. Objective vital signs Vital Sign Date Time Temp Pulse Resp B/P (MAP) Pulse Ox O2 Delivery O2 Flow Rate FiO2 01/31/25 13:25 115/69 01/31/25 13:12 85 24 100 30 01/31/25 12:00 Mechanical Ventilator+ 01/31/25 10:00 01/31/25 06:15 98.1 208.6 Total Intake and Output 01/30/25 01/30/25 01/31/25 15:00 23:00 07:00 Intake Total 1230.75 ml 1309.5 ml 1141.625 ml Output Total 2060 ml 1750 ml Balance 1230.75 ml -750.5 ml -608.375 ml medications Current Medications Medications Dose Ordered Sig/Sherron Route Start Time Stop Time Status Last Admin Dose Admin Pantoprazole Sodium 40 mg DAILY IV 12/18/24 10:00 01/31/25 10:00 40 MG Midazolam HCl 50 ml @ 1 mls/hr Q24H IV 12/17/24 17:00 01/31/25 12:21 6 MLS/HR Valproate Sodium 250 mg/Sodium Chloride 52.5 ml @ 52.5 mls/hr BID IV 12/17/24 22:00 01/31/25 09:02 52.5 MLS/HR Propofol 100 ml @ 2.37 mls/hr Q24H IV 12/17/24 18:15 01/31/25 13:25 23.7 MLS/HR Diagnostic Test (Pha) 1 strip Q6HR 12/20/24 18:00 01/31/25 12:12 1 STRIP Insulin Human Regular FOLLOW SLIDING SCALE Q6HR SC 12/20/24 18:00 01/30/25 00:49 2 UNITS Dextrose 50 ml UD IV 12/20/24 14:15 12/20/24 17:47 50 ML Sodium Chloride 40 meq/Potassium Chloride 40 meq/ Potassium Phosphate 11 meq/ Calcium Gluconate 2.3 meq/Magnesium Sulfate 8 meq/ Multivitamins 10 ml/Chromium/ Copper/Manganese/ Zinc 1 ml/Amino Acids/Dextrose/ Purified Water 1,450.4462 ml @ 60 mls/hr [id number] IV 12/26/24 22:00 12/27/24 21:59 Cancel Ipratropium [place] 0.5 mg Q6HR NEB 12/27/24 18:00 01/31/25 11:54 0.5 MG Levalbuterol HCl 1.25 mg Q6HR NEB 12/27/24 18:00 01/31/25 11:54 1.25 MG Sodium Chloride 10 ml QSHIFT@10,22 IV 12/27/24 22:00 01/31/25 10:27 10 ML Artificial Tears 1 drop Q6HP PRN EACHEYE 12/29/24 23:45 01/06/25 09:00 1 DROP Meropenem 50 ml @ 17 mls/hr Q8HR IV 12/31/24 14:00 01/31/25 05:48 17 MLS/HR Ketamine HCl 50 mg [id number] PRN IV 01/04/25 15:00 01/05/25 07:00 Cancel Sodium Chloride 120 meq/Potassium Chloride 50 meq/ Potassium Acetate 50 meq/Calcium Gluconate 4.65 meq/Magnesium Sulfate 34 meq/ Multivitamins 10 ml/Chromium/ Copper/Manganese/ Zinc 1 ml/Amino Acids/Dextrose/ Purified Water 1,659.5 ml @ 68.108 mls/hr [id number] IV 01/09/25 22:00 01/10/25 21:59 Cancel Sodium Chloride 100 meq/Potassium Chloride 50 meq/ Calcium Gluconate 4.65 meq/ Magnesium Sulfate 34 meq/ Multivitamins 10 ml/Chromium/ Copper/Manganese/ Zinc 1 ml/Sodium Phosphate 20 meq/ Potassium Acetate 50 meq/Amino Acids/Dextrose/ Purified Water 1,659.5 ml @ 68.537 mls/hr [id number] IV 01/09/25 09:30 01/09/25 21:59 Cancel Linezolid 300 ml @ 150 mls/hr Q12H IV 01/11/25 23:00 01/31/25 13:04 150 MLS/HR Fentanyl Citrate 250 ml @ 2.5 mls/hr Q24H IV 01/14/25 12:45 01/31/25 13:16 35 MLS/HR Acetylcysteine 200 mg Q6HR NEB 01/18/25 12:00 01/31/25 11:54 200 MG Thiamine HCl 100 mg DAILY IV 01/20/25 10:00 01/31/25 10:00 100 MG Folic Acid 1 mg DAILY PO 01/20/25 10:00 01/31/25 11:02 1 MG Acetaminophen 650 mg Q6HP PRN GT 01/22/25 10:15 01/29/25 09:50 650 MG Micafungin Sodium 100 mg/Sodium Chloride 100 ml @ 100 mls/hr DAILY IV 01/23/25 10:00 01/31/25 10:27 100 MLS/HR Enteral Nutritional Formula 1,000 ml 50ML/HR GT 01/23/25 13:00 01/29/25 17:45 1,000 ML Furosemide 40 mg DAILY IV 01/25/25 10:00 01/31/25 10:02 40 MG Levetiracetam 100 ml @ 400 mls/hr BID IV 01/26/25 10:00 01/31/25 11:11 400 MLS/HR Mupirocin 1 applic BID EACHNOSTRI 01/27/25 22:00 02/01/25 21:59 UNV Norepinephrine Bitartrate 250 ml @ 0.938 mls/ hr Q24H IV 01/30/25 19:15 01/30/25 19:15 7.5 MLS/HR Diphenhydramine HCl 25 mg Q6HP PRN IV 01/30/25 19:45 01/31/25 06:20 25 MG Haloperidol Lactate 5 mg Q6HR IM 01/31/25 12:00 01/31/25 13:40 5 MG Examination * Abdomen: Soft, nondistended, no rigidity. * Bowel sounds: Hypoactive. * Colostomy: Viable, minimal output, no blood or purulence. laboratory and microbiology Laboratory Tests 01/31/25 03:17 Test 01/31/25 03:17 Range/Units Serum Glucose 118 H 74-106 mg/dL Microbiology Date/Time Source Procedure Growth Status 01/22/25 18:44 Blood Blood Culture - Final NO GROWTH AFTER 5 DAYS OF INCUBATION. Complete 01/18/25 14:15 Urine - Navarrete Port Urine Culture - Final Complete 01/18/25 10:40 Sputum Gram Stain - Final Complete 01/18/25 10:40 Sputum Respiratory Culture - Final Complete 01/05/25 08:15 Other Abscess Gram Stain - Final Complete 01/05/25 08:15 Other Abscess Anaerobic Culture - Final Complete 01/05/25 08:15 Aerobic Culture - Final Enterococcus faecium - VRE Complete 01/05/25 08:02 Peritoneal Fluid Gram Stain - Final Complete 01/05/25 08:02 Peritoneal Fluid Anaerobic Culture - Final Complete 01/05/25 08:02 Aerobic Culture - Final Enterococcus faecium - VRE Citrobacter freundii Vanc Resistant Enterococcus Complete Problem List/Assessment/Plan Problem List/Assessment/Plan Assessment 1. Postoperative status after laparotomy with colostomy and abscess drainage stable, signs of return of bowel function. 2. Enteral nutrition initiation (trickle feeds) tolerated with modest residuals; no signs of feeding intolerance or obstruction. 3. NG bile output expected in the context of early enteral feeding; continue monitoring for changes. 4. Colostomy function output stable, no ischemia or obstruction. 5. Sepsis from VRE/Citrobacter peritonitis improving on antibiotics. 6. TPN dependence continuing alongside trickle feeds. Treatment Plan Repeat CT is reassuring as there is slight improvement Clinically patient appears stable from a GI point of view but has ongoing infection and pulmonary issues Continue supportive care, continue tube feedings as tolerated Wound care Gastrointestinal * Continue trickle feeding at 50mL/hr, reassess tolerance (residuals, abdominal exam) q12h. * Continue Reglan IV q8h to aid GI motility. * Monitor colostomy output for volume, consistency, and viability. * Continue wound VAC care. Infectious Disease * Continue ANTIBIOTICS * Monitor cultures, WBC count, and temperature trends. Nutrition * Continue enteral feeds as tolerated. * Monitor electrolytes, albumin, and nutritional markers daily. Prophylaxis * Stress ulcer prophylaxis: Continue IV Pantoprazole. We will continue to monitor the patient. Case discussed in detail with the attending physician, including the clinical presentation, diagnostic workup, and comprehensive management plan. Plan discussed with: Other (RN) Dietary Evaluation Review Comments: 1. TF: Vital AF@50ml/hr (90g protein, 1440kcal 973 free water) meeting Protein needs 83%, energy needs 80%. 2. TPN per pharmacy meeting 75% of his needs if TF not feasible or NPO>7 days. 3. Diet as tolerated per GUM WORKER eval when off Vent Expected Outcomes/Goals: Preventing catabolism SOPHIE LANDEROS RESIDENT Jan 31, 2025 15:01
[2025-01-31] MEDS: DEXMEDETOMIDINE HCL IN D5W 100 ML IV SCH (18:45)
[2025-01-31] MEDS: KETOROLAC TROMETH 30 MG/ML 1ML VIAL IV ONE (18:52)
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
[2025-01-31] MEDS ORDERED: HALOPERIDOL LACTATE 5 MG/ML INJ VIAL IM SCH (22:00)
[2025-02-01] VITALS (109 sets, daily range): BP systolic 67–161; BP diastolic 28–99; PULSE 71–121; RESP 12–32; TEMP 76.5–99.7; O2SAT 94–100
[2025-02-01 04:05] LABS: Hemoglobin 9.1 g/dL (13.5-17.5)
[2025-02-01 04:07] LABS: Hematocrit 26.8 % (41.0-53.0); Mean Corpuscular Hemoglobin 28.7 pg (28.0-32.0); Mean Corpuscular Volume 84.4 fL (80.0-100.0); Nucleated Red Blood Cells % 0.1 %
[2025-02-01 04:21] LABS: Anion Gap 11 (5-15); Carbon Dioxide 28 mmol/L (20-31); Chloride 100 mmol/L (98-107); Sodium 139 mmol/L (136-145)
[2025-02-01 04:22] LABS: Calcium 9.0 mg/dL (8.7-10.4)
[2025-02-01 04:23] LABS: Potassium 3.4 mmol/L (3.5-5.1)
[2025-02-01 04:25] LABS: INR 1.14 (0.9-1.15); Partial Thromboplastin Time 36.1 SEC (24.5-34.5); Prothrombin Time 11.9 sec (9.3-11.8)
[2025-02-01 04:27] LABS: BUN/Creatinine Ratio 9.6 (10.0-20.0); Glucose 95 mg/dL (74-106)
[2025-02-01 04:34] LABS: Blood Urea Nitrogen 5 mg/dL (9-23)
--- NOTE | 2025-02-01 05:37 | DVH ---
CHEST RADIOGRAPH Indication: on vent Technique: Single frontal view of the chest was obtained COMPARISON: XY CHEST XRAY 1 VIEW on DOS: 01/31/25, XY CHEST XRAY 1 VIEW on DOS: 01/31/25, XY CHEST XRAY 1 VIEW on DOS: 01/30/25, XY CHEST XRAY 1 VIEW on DOS: 01/29/25, XY CHEST XRAY 1 VIEW on DOS: 01/28/25 FINDINGS: Lines and Tubes: Tracheostomy and enteric catheter unchanged. Lungs: Stable appearing patchy moderately consolidative appearing bibasilar and right upper lobe pulm onary airspace disease. Pleura: No effusion. No pneumothorax. Cardiomediastinal contours: Unremarkable Bones: Unremarkable IMPRESSION: 1. Stable. Patchy moderately consolidative appearing bibasilar and right upper pulmonary airspace di sease. 2. Lines and tubes unchanged.
[2025-02-01] MEDS: POTASSIUM CHL 20MEQ/100ML 100 ML IV SCH ×2 (06:05→11:48)
[2025-02-01 06:08] LABS: Base Excess -0.2 mmol/L (-2.0-3.0)
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
--- NOTE | 2025-02-01 19:09 | DVHPN2 ---
Progress Note Date Seen: Feb 01, 2025 Resident Creating Document: SOPHIE LANDEROS RESIDENT Has the PT tested + for MRSA If YES, has PT been informed?: No Medical Necessity Reason Pt with a Central, PICC or Fol: Yes The following are medically ne: Navarrete Catheter Reason for navarrete catheter: Strict I&O Subjective Review of Systems Patient seen and examined at the bedside. We came down on the sedation with a running of Versed for about 4-5 hours but in the evening patient has started to become agitated again and had to be sedated. Hemodynamics stable, minimal ventilator settings, urine output improved. Patient is post pyloric tube was dislodged on 0 01/30 following which we put a NG tube on 01/31 and feeding was started personal assistant on 02/01. Not output in the colostomy tube seen. Objective vital signs Vital Sign Date Time Temp Pulse Resp B/P (MAP) Pulse Ox O2 Delivery O2 Flow Rate FiO2 02/01/25 18:54 115/52 02/01/25 18:30 98 23 97 02/01/25 18:00 Mechanical Ventilator+ 30 30 02/01/25 18:00 76.5 169.7 01/31/25 06:00 10 Total Intake and Output 01/31/25 01/31/25 02/01/25 15:00 23:00 07:00 Intake Total 1606.2 ml 976.875 ml 1363.52 ml Output Total 2800 ml 750 ml Balance 1606.2 ml -1823.125 ml 613.52 ml medications Current Medications Medications Dose Ordered Sig/Sherron Route Start Time Stop Time Status Last Admin Dose Admin Pantoprazole Sodium 40 mg DAILY IV 12/18/24 10:00 02/01/25 09:34 40 MG Midazolam HCl 50 ml @ 1 mls/hr Q24H IV 12/17/24 17:00 02/01/25 18:49 10 MLS/HR Valproate Sodium 250 mg/Sodium Chloride 52.5 ml @ 52.5 mls/hr BID IV 12/17/24 22:00 02/01/25 10:26 52.5 MLS/HR Propofol 100 ml @ 2.37 mls/hr Q24H IV 12/17/24 18:15 02/01/25 18:54 23.7 MLS/HR Diagnostic Test (Pha) 1 strip Q6HR 12/20/24 18:00 02/01/25 18:06 1 STRIP Insulin Human Regular FOLLOW SLIDING SCALE Q6HR SC 12/20/24 18:00 01/30/25 00:49 2 UNITS Dextrose 50 ml UD IV 12/20/24 14:15 12/20/24 17:47 50 ML Sodium Chloride 40 meq/Potassium Chloride 40 meq/ Potassium Phosphate 11 meq/ Calcium Gluconate 2.3 meq/Magnesium Sulfate 8 meq/ Multivitamins 10 ml/Chromium/ Copper/Manganese/ Zinc 1 ml/Amino Acids/Dextrose/ Purified Water 1,450.4462 ml @ 60 mls/hr [id number] IV 12/26/24 22:00 12/27/24 21:59 Cancel Ipratropium [place] 0.5 mg Q6HR NEB 12/27/24 18:00 02/01/25 18:39 0.5 MG Levalbuterol HCl 1.25 mg Q6HR NEB 12/27/24 18:00 02/01/25 18:39 1.25 MG Sodium Chloride 10 ml QSHIFT@10,22 IV 12/27/24 22:00 02/01/25 09:35 10 ML Artificial Tears 1 drop Q6HP PRN EACHEYE 12/29/24 23:45 01/06/25 09:00 1 DROP Meropenem 50 ml @ 17 mls/hr Q8HR IV 12/31/24 14:00 02/01/25 15:54 17 MLS/HR Ketamine HCl 50 mg [id number] PRN IV 01/04/25 15:00 01/05/25 07:00 Cancel Sodium Chloride 120 meq/Potassium Chloride 50 meq/ Potassium Acetate 50 meq/Calcium Gluconate 4.65 meq/Magnesium Sulfate 34 meq/ Multivitamins 10 ml/Chromium/ Copper/Manganese/ Zinc 1 ml/Amino Acids/Dextrose/ Purified Water 1,659.5 ml @ 68.108 mls/hr [id number] IV 01/09/25 22:00 01/10/25 21:59 Cancel Sodium Chloride 100 meq/Potassium Chloride 50 meq/ Calcium Gluconate 4.65 meq/ Magnesium Sulfate 34 meq/ Multivitamins 10 ml/Chromium/ Copper/Manganese/ Zinc 1 ml/Sodium Phosphate 20 meq/ Potassium Acetate 50 meq/Amino Acids/Dextrose/ Purified Water 1,659.5 ml @ 68.537 mls/hr [id number] IV 01/09/25 09:30 01/09/25 21:59 Cancel Linezolid 300 ml @ 150 mls/hr Q12H IV 01/11/25 23:00 02/01/25 12:46 150 MLS/HR Fentanyl Citrate 250 ml @ 2.5 mls/hr Q24H IV 01/14/25 12:45 02/01/25 17:42 35 MLS/HR Acetylcysteine 200 mg Q6HR NEB 01/18/25 12:00 02/01/25 18:39 200 MG Thiamine HCl 100 mg DAILY IV 01/20/25 10:00 02/01/25 09:33 100 MG Folic Acid 1 mg DAILY PO 01/20/25 10:00 02/01/25 09:34 1 MG Acetaminophen 650 mg Q6HP PRN GT 01/22/25 10:15 01/29/25 09:50 650 MG Micafungin Sodium 100 mg/Sodium Chloride 100 ml @ 100 mls/hr DAILY IV 01/23/25 10:00 02/01/25 11:25 100 MLS/HR Enteral Nutritional Formula 1,000 ml 50ML/HR GT 01/23/25 13:00 01/29/25 17:45 1,000 ML Furosemide 40 mg DAILY IV 01/25/25 10:00 02/01/25 09:34 40 MG Levetiracetam 100 ml @ 400 mls/hr BID IV 01/26/25 10:00 02/01/25 09:35 400 MLS/HR Mupirocin 1 applic BID EACHNOSTRI 01/27/25 22:00 02/01/25 21:59 UNV Norepinephrine Bitartrate 250 ml @ 0.938 mls/ hr Q24H IV 01/30/25 19:15 01/31/25 17:35 1.86 MLS/HR Diphenhydramine HCl 25 mg Q6HP PRN IV 01/30/25 19:45 02/01/25 15:49 25 MG Haloperidol Lactate 5 mg Q6HR IM 01/31/25 12:00 02/01/25 18:01 5 MG Magnesium Sulfate/ Dextrose 100 ml @ 100 mls/hr Q1HR IV 02/01/25 19:00 02/01/25 20:59 UNV Examination Gen - no pallor, no icterus, no cyanosis, right upper extremity edema Skin - Patients skin is warm and dry. GI - soft abdomen. Midline incision with a wound VAC. Right upper quadrant colostomy, left upper quadrant mucous fistula, SHIRLENE drains on left and right draining minimal . Bowel sounds normoactive laboratory and microbiology Laboratory Tests 02/01/25 03:08 Test 02/01/25 03:08 Range/Units Serum Glucose 95 74-106 mg/dL Microbiology Date/Time Source Procedure Growth Status 01/22/25 18:44 Blood Blood Culture - Final NO GROWTH AFTER 5 DAYS OF INCUBATION. Complete 01/18/25 14:15 Urine - Navarrete Port Urine Culture - Final Complete 01/18/25 10:40 Sputum Gram Stain - Final Complete 01/18/25 10:40 Sputum Respiratory Culture - Final Complete 01/05/25 08:15 Other Abscess Gram Stain - Final Complete 01/05/25 08:15 Other Abscess Anaerobic Culture - Final Complete 01/05/25 08:15 Aerobic Culture - Final Enterococcus faecium - VRE Complete 01/05/25 08:02 Peritoneal Fluid Gram Stain - Final Complete 01/05/25 08:02 Peritoneal Fluid Anaerobic Culture - Final Complete 01/05/25 08:02 Aerobic Culture - Final Enterococcus faecium - VRE Citrobacter freundii Vanc Resistant Enterococcus Complete Labs and/or images reviewed: Labs reviewed by me, Image(s) reviewed by me Problem List/Assessment/Plan Problem List/Assessment/Plan Assessment 1. Postoperative status after laparotomy with colostomy and abscess drainage stable, signs of return of bowel function. 2. Enteral nutrition initiation (trickle feeds) tolerated with modest residuals; no signs of feeding intolerance or obstruction. 3. NG bile output expected in the context of early enteral feeding; continue monitoring for changes. 4. Colostomy function output stable, no ischemia or obstruction. 5. Sepsis from VRE/Citrobacter peritonitis improving on antibiotics. 6. TPN dependence continuing alongside trickle feeds. Treatment Plan Repeat CT is reassuring as there is slight improvement Clinically patient appears stable from a GI point of view but has ongoing infection and pulmonary issues Continue supportive care, continue tube feedings as tolerated Wound care Gastrointestinal * Continue NG TUBE Feeds at 50mL/hr, reassess tolerance (residuals, abdominal exam) q12h. * Continue Reglan IV q8h to aid GI motility. * Monitor colostomy output for volume, consistency, and viability. * Continue wound VAC care. Infectious Disease * Continue ANTIBIOTICS * Monitor cultures, WBC count, and temperature trends. Nutrition * Continue enteral feeds as tolerated. * Monitor electrolytes, albumin, and nutritional markers daily. Prophylaxis * Stress ulcer prophylaxis: Continue IV Pantoprazole. We will continue to monitor the patient. Case discussed in detail with the attending physician, including the clinical presentation, diagnostic workup, and comprehensive management plan. Plan discussed with: Other (RN) Dietary Evaluation Review Comments: 1. TF: Vital AF@50ml/hr (90g protein, 1440kcal 973 free water) meeting Protein needs 83%, energy needs 80%. 2. TPN per pharmacy meeting 75% of his needs if TF not feasible or NPO>7 days. 3. Diet as tolerated per TOOL MECHANIC eval when off Vent Expected Outcomes/Goals: Preventing catabolism SOPHIE LANDEROS RESIDENT Feb 01, 2025 19:09
[2025-02-01] MEDS: FUROSEMIDE 40 MG/4 ML VIAL IV ONE (20:38)
[2025-02-01] MEDS: MAGNESIUM SULFATE 1GM/100ML 100 ML IV SCH (20:43)
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
[2025-02-02] VITALS (107 sets, daily range): BP systolic 77–139; BP diastolic 13–83; PULSE 74–136; RESP 12–38; TEMP 97.9–99.9; O2SAT 90–100
[2025-02-02 03:17] LABS: Hemoglobin 9.0 g/dL (13.5-17.5); Mean Corpuscular Hemoglobin 28.4 pg (28.0-32.0); Nucleated Red Blood Cells % 0.0 %
[2025-02-02 03:19] LABS: Hematocrit 26.6 % (41.0-53.0); Mean Corpuscular Volume 84.3 fL (80.0-100.0)
[2025-02-02 03:35] LABS: Alanine Aminotransferase 15 U/L (7-40); Albumin 3.7 g/dL (3.2-4.8); Alkaline Phosphatase 92 U/L (46-116); Anion Gap 10 (5-15); Calcium 9.2 mg/dL (8.7-10.4); Carbon Dioxide 30 mmol/L (20-31); Chloride 98 mmol/L (98-107); Glucose 94 mg/dL (74-106); Magnesium 1.8 mg/dL (1.6-2.6); Sodium 138 mmol/L (136-145); Total Protein 7.0 g/dL (5.7-8.2)
[2025-02-02 03:40] LABS: BUN/Creatinine Ratio 9.1 (10.0-20.0); Bilirubin, Total 0.2 mg/dL (0.2-1.0); Blood Urea Nitrogen < 5 mg/dL (9-23); Potassium 3.5 mmol/L (3.5-5.1)
[2025-02-02] MEDS: POTASSIUM CHL 20MEQ/100ML 100 ML IV SCH (05:03)
--- NOTE | 2025-02-02 07:53 | DVH ---
XY CHEST XRAY 1 VIEW, HISTORY: on vent, B/L congestion COMPARISON: XY CHEST XRAY 1 VIEW on DOS: 02/01/25, XY CHEST XRAY 1 VIEW on DOS: 01/31/25, XY CHEST XRAY 1 VIEW on DOS: 01/31/25 XY CHEST XRAY 1 VIEW on DOS: 02/01/25, XY CHEST XRAY 1 VIEW on DOS: 01/31/25, XY CHEST XRAY 1 VIEW on D OS: 01/31/25 TECHNICAL DATA: 1 view of the chest was obtained. FINDINGS: Lines and tubes: Stable lines and tubes. Cardiomediastinal silhouette: Indistinct Pulmonary vasculature: prominent Lung expansion: low Lung airspace: bilateral perihilar opacity. Lung interstitium: prominent Pleura: normal Pneumothorax: no Bones: Unremarkable Other: no IMPRESSION: Stable lines and tubes. Similar lung aeration bilaterally.
[2025-02-02 08:34] LABS: Base Excess 5.5 mmol/L (-2.0-3.0)
--- NOTE | 2025-02-02 10:33 | DVHPN2 ---
Subjective Patient able to follow some commands. Continues to be on multiple sedatives. Reviewed: Care Plan, H&P, Labs, Medications, Previous Orders, Radiology, Other (Consultations) Changes from previous H/P or p: No Changes Objective Vitals Vital Signs Date Time Temp Pulse Resp B/P (MAP) Pulse Ox O2 Delivery O2 Flow Rate FiO2 02/02/25 09:52 113/68 02/02/25 09:15 99.0 96 17 96 210.2 02/02/25 08:00 Mechanical Ventilator+ 30 30 Intake/Output Intake and Output 02/02/25 07:00 Intake Total 4636.979 ml Output Total 7115 ml Balance -2478.021 ml Intake Oral 120 ml IV Total 3960.979 ml Tube Feeding 556 ml Output Urine Total 7100 ml Drainage Total 15 ml General Appearance: Alert, Other (Patient with chemical sedation) HEENT: Atraumatic, PERRLA, Other (Tracheostomy in place; Dobbhoff tube in place ) Lungs: Other (Clear breath sounds. On mechanical ventilation.) Cardiovascular: Regular rate, Normal S1, Normal S2, No murmurs Abdomen: Normal bowel sounds, Soft, Other (Midline surgical wound with wound VAC; SHIRLENE drain with serosanguineous fluid; colostomy with very minimal amount of greenish fluid) Genitourinary: Other (Martinez's in place) Neuro: Other (Sedated) Skin: Wounds (See nurse notes and pictures), Other (Please kindly refer to nursing documentation) Psych/Mental Status: Other (Sedated) Medications Current Medications Medications Dose Ordered Sig/Sherron Route Start Time Stop Time Status Last Admin Dose Admin Pantoprazole Sodium 40 mg DAILY IV 12/18/24 10:00 02/02/25 09:52 40 MG Midazolam HCl 50 ml @ 1 mls/hr Q24H IV 12/17/24 17:00 02/02/25 09:39 15 MLS/HR Valproate Sodium 250 mg/Sodium Chloride 52.5 ml @ 52.5 mls/hr BID IV 12/17/24 22:00 02/02/25 09:56 52.5 MLS/HR Propofol 100 ml @ 2.37 mls/hr Q24H IV 12/17/24 18:15 02/02/25 10:11 23.7 MLS/HR Diagnostic Test (Pha) 1 strip Q6HR 12/20/24 18:00 02/02/25 04:45 1 STRIP Insulin Human Regular FOLLOW SLIDING SCALE Q6HR SC 12/20/24 18:00 01/30/25 00:49 2 UNITS Dextrose 50 ml UD IV 12/20/24 14:15 12/20/24 17:47 50 ML Sodium Chloride 40 meq/Potassium Chloride 40 meq/ Potassium Phosphate 11 meq/ Calcium Gluconate 2.3 meq/Magnesium Sulfate 8 meq/ Multivitamins 10 ml/Chromium/ Copper/Manganese/ Zinc 1 ml/Amino Acids/Dextrose/ Purified Water 1,450.4462 ml @ 60 mls/hr [id number] IV 12/26/24 22:00 12/27/24 21:59 Cancel Ipratropium Issue 0.5 mg Q6HR NEB 12/27/24 18:00 02/02/25 06:08 0.5 MG Levalbuterol HCl 1.25 mg Q6HR NEB 12/27/24 18:00 02/02/25 06:08 1.25 MG Sodium Chloride 10 ml QSHIFT@10,22 IV 12/27/24 22:00 02/02/25 10:06 10 ML Artificial Tears 1 drop Q6HP PRN EACHEYE 12/29/24 23:45 01/06/25 09:00 1 DROP Meropenem 50 ml @ 17 mls/hr Q8HR IV 12/31/24 14:00 02/02/25 04:44 17 MLS/HR Ketamine HCl 50 mg [id number] PRN IV 01/04/25 15:00 01/05/25 07:00 Cancel Sodium Chloride 120 meq/Potassium Chloride 50 meq/ Potassium Acetate 50 meq/Calcium Gluconate 4.65 meq/Magnesium Sulfate 34 meq/ Multivitamins 10 ml/Chromium/ Copper/Manganese/ Zinc 1 ml/Amino Acids/Dextrose/ Purified Water 1,659.5 ml @ 68.108 mls/hr [id number] IV 01/09/25 22:00 01/10/25 21:59 Cancel Sodium Chloride 100 meq/Potassium Chloride 50 meq/ Calcium Gluconate 4.65 meq/ Magnesium Sulfate 34 meq/ Multivitamins 10 ml/Chromium/ Copper/Manganese/ Zinc 1 ml/Sodium Phosphate 20 meq/ Potassium Acetate 50 meq/Amino Acids/Dextrose/ Purified Water 1,659.5 ml @ 68.537 mls/hr [id number] IV 01/09/25 09:30 01/09/25 21:59 Cancel Linezolid 300 ml @ 150 mls/hr Q12H IV 01/11/25 23:00 02/01/25 22:29 150 MLS/HR Fentanyl Citrate 250 ml @ 2.5 mls/hr Q24H IV 01/14/25 12:45 02/02/25 07:13 35 MLS/HR Acetylcysteine 200 mg Q6HR NEB 01/18/25 12:00 02/02/25 06:08 200 MG Thiamine HCl 100 mg DAILY IV 01/20/25 10:00 02/02/25 09:54 100 MG Folic Acid 1 mg DAILY PO 01/20/25 10:00 02/02/25 10:06 1 MG Acetaminophen 650 mg Q6HP PRN GT 01/22/25 10:15 01/29/25 09:50 650 MG Micafungin Sodium 100 mg/Sodium Chloride 100 ml @ 100 mls/hr DAILY IV 01/23/25 10:00 02/02/25 10:03 100 MLS/HR Enteral Nutritional Formula 1,000 ml 50ML/HR GT 01/23/25 13:00 02/01/25 20:45 1,000 ML Furosemide 40 mg DAILY IV 01/25/25 10:00 02/02/25 09:52 40 MG Levetiracetam 100 ml @ 400 mls/hr BID IV 01/26/25 10:00 02/02/25 09:41 400 MLS/HR Mupirocin 1 applic BID EACHNOSTRI 01/27/25 22:00 02/01/25 21:59 UNV Norepinephrine Bitartrate 250 ml @ 0.938 mls/ hr Q24H IV 01/30/25 19:15 01/31/25 17:35 1.86 MLS/HR Diphenhydramine HCl 25 mg Q6HP PRN IV 01/30/25 19:45 02/01/25 22:39 25 MG Haloperidol Lactate 5 mg Q6HR IM 01/31/25 12:00 02/02/25 05:38 5 MG Laboratory Results Laboratory Tests 02/02/25 03:05 Chemistry Test 02/02/25 03:05 Albumin 3.7 g/dL (3.2-4.8) Calcium Level 9.2 mg/dL (8.7-10.4) Magnesium Level 1.8 mg/dL (1.6-2.6) Total Protein 7.0 g/dL (5.7-8.2) LFT Test 02/02/25 03:05 Alanine Aminotransferase (ALT) 15 U/L (7-40) Alkaline Phosphatase 92 U/L (46-116) Aspartate Amino Transferase (AST) 23 U/L (13-40) Total Bilirubin 0.2 mg/dL (0.2-1.0) Urinalysis Test 12/18/24 08:16 Urine Color Dark-brown (Yellow) Urine Clarity Ex.turbid (Clear) Urine pH 6.0 (5.0-9.0) Urine Specific [place] 1.041 (1.001-1.035) Urine Protein 1+ (Negative) H Urine Ketones Negative (Negative) Urine Blood Trace /uL (Negative) H Urine Nitrite Negative (Negative) Urine Bilirubin Negative (Negative) Urine Urobilinogen Normal mg/dL (Negative) Urine Leukocyte Esterase Negative /uL (Negative) Urine RBC 30 /hpf (0 - 3) Urine WBC Clumps Present /hpf (None Seen) Urine Microscopic WBC 151 /HPF (0-3) H Urine Squamous Epithelial Cells None seen /hpf (<5) Urine Bacteria None seen /hpf (None Seen) Urine Mucus Few (None Seen) Urine Glucose Normal mg/dL (Normal) Blood Gas Results Test 02/02/25 07:42 Arterial Blood pH 7.502 (7.350-7.450) FiO2 % 30.0 Microbiology Microbiology Date/Time Source Procedure Growth Status 01/22/25 18:44 Blood Blood Culture - Final NO GROWTH AFTER 5 DAYS OF INCUBATION. Complete 01/18/25 14:15 Urine - [place] Urine Culture - Final Complete 01/18/25 10:40 Sputum Gram Stain - Final Complete 01/18/25 10:40 Sputum Respiratory Culture - Final Complete 01/05/25 08:15 Other Abscess Gram Stain - Final Complete 01/05/25 08:15 Other Abscess Anaerobic Culture - Final Complete 01/05/25 08:15 Aerobic Culture - Final Enterococcus faecium - VRE Complete 01/05/25 08:02 Peritoneal Fluid Gram Stain - Final Complete 01/05/25 08:02 Peritoneal Fluid Anaerobic Culture - Final Complete 01/05/25 08:02 Aerobic Culture - Final Enterococcus faecium - VRE Citrobacter freundii Vanc Resistant Enterococcus Complete Labs and/or images reviewed: Labs reviewed by me, Image(s) reviewed by me Assessment/Plan Assessment/Plan Impression: -septic shock -acute peritonitis secondary to VRE in Citrobacter Freundii -DVT to right IJ and subclavian vein. Thrombus also noted in axillary and brachial vein -acute hypoxic respiratory failure with failure of weaning from mechanical ventilation -status post tracheostomy -constipation -ARDS -history of epilepsy -acute delirium -metabolic encephalopathy Plan: -continue current sedation, prn IM Haldol -attempt CPAP trial, transitioned back to AC mode if not tolerating -continue IV diuresis -continue current antibiotic therapy -bronchodilators as needed -surgical recommendations appreciated. Minimal output from SHIRLENE drain -repeat labs, chest x-ray in a.m. Critical care time spent with patient discussing and formulating plan of care: 40 minutes. This does not include time spent performing procedures. This medical document was created using an electronic medical record system with [employer] dictation system. Although this document has been carefully reviewed, there may still be some phonetic and typographical errors. These areas are purely typographical due to imperfections of the software programs, and do not reflect any compromise in the patient's medical care. Plan discussed with: Patient, Other (RN) My Orders Orders - BRENDON WILLIAM NP Procedure Category Date Status Time Cpap Trial For Am ORDERS 02/02/25 Transmitted 10:23 Basic Metabolic Panel LAB 02/03/25 Verified 05:00 Basic Metabolic Panel LAB 02/04/25 Verified 05:00 Basic Metabolic Panel LAB 02/05/25 Verified 05:00 Complete Blood Count LAB 02/03/25 Verified 05:00 Complete Blood Count LAB 02/04/25 Verified 05:00 Complete Blood Count LAB 02/05/25 Verified 05:00 Date of Service: Feb 02, 2025 Billing Provider: BRENDON WILLIAM NP Common Visit Codes: 66722-ITV/OBS DISCH DAY >30min BRENDON WILLIAM NP Feb 02, 2025 10:33
--- NOTE | 2025-02-02 12:52 | DVHPN2 ---
Progress Note - Dictate Date Seen: Feb 02, 2025 Has the PT tested + for MRSA If YES, has PT been informed?: No Medical Necessity Reason Pt with a Central, PICC or Fol: Yes The following are medically ne: Navarrete Catheter Reason for navarrete catheter: Strict I&O vital signs Vital Sign Date Time Temp Pulse Resp B/P (MAP) Pulse Ox O2 Delivery O2 Flow Rate FiO2 02/02/25 12:36 78 24 120/67 (84) 100 30 02/02/25 12:15 98.6 209.5 02/02/25 12:00 Mechanical Ventilator+ Total Intake and Output 02/01/25 02/01/25 02/02/25 15:00 23:00 07:00 Intake Total 1618.226 ml 1548.105 ml 1470.648 ml Output Total 3400 ml 3715 ml Balance 1618.226 ml -1851.895 ml -2244.352 ml medications Current Medications Medications Dose Ordered Sig/Sherron Route Start Time Stop Time Status Last Admin Dose Admin Pantoprazole Sodium 40 mg DAILY IV 12/18/24 10:00 02/02/25 09:52 40 MG Midazolam HCl 50 ml @ 1 mls/hr Q24H IV 12/17/24 17:00 02/02/25 09:39 15 MLS/HR Valproate Sodium 250 mg/Sodium Chloride 52.5 ml @ 52.5 mls/hr BID IV 12/17/24 22:00 02/02/25 09:56 52.5 MLS/HR Propofol 100 ml @ 2.37 mls/hr Q24H IV 12/17/24 18:15 02/02/25 10:11 23.7 MLS/HR Diagnostic Test (Pha) 1 strip Q6HR 12/20/24 18:00 02/02/25 11:51 1 STRIP Insulin Human Regular FOLLOW SLIDING SCALE Q6HR SC 12/20/24 18:00 01/30/25 00:49 2 UNITS Dextrose 50 ml UD IV 12/20/24 14:15 12/20/24 17:47 50 ML Sodium Chloride 40 meq/Potassium Chloride 40 meq/ Potassium Phosphate 11 meq/ Calcium Gluconate 2.3 meq/Magnesium Sulfate 8 meq/ Multivitamins 10 ml/Chromium/ Copper/Manganese/ Zinc 1 ml/Amino Acids/Dextrose/ Purified Water 1,450.4462 ml @ 60 mls/hr [id number] IV 12/26/24 22:00 12/27/24 21:59 Cancel Ipratropium [place] 0.5 mg Q6HR NEB 12/27/24 18:00 02/02/25 12:36 0.5 MG Levalbuterol HCl 1.25 mg Q6HR NEB 12/27/24 18:00 02/02/25 12:36 1.25 MG Sodium Chloride 10 ml QSHIFT@10,22 IV 12/27/24 22:00 02/02/25 10:06 10 ML Artificial Tears 1 drop Q6HP PRN EACHEYE 12/29/24 23:45 01/06/25 09:00 1 DROP Meropenem 50 ml @ 17 mls/hr Q8HR IV 12/31/24 14:00 02/02/25 04:44 17 MLS/HR Ketamine HCl 50 mg [id number] PRN IV 01/04/25 15:00 01/05/25 07:00 Cancel Sodium Chloride 120 meq/Potassium Chloride 50 meq/ Potassium Acetate 50 meq/Calcium Gluconate 4.65 meq/Magnesium Sulfate 34 meq/ Multivitamins 10 ml/Chromium/ Copper/Manganese/ Zinc 1 ml/Amino Acids/Dextrose/ Purified Water 1,659.5 ml @ 68.108 mls/hr [id number] IV 01/09/25 22:00 01/10/25 21:59 Cancel Sodium Chloride 100 meq/Potassium Chloride 50 meq/ Calcium Gluconate 4.65 meq/ Magnesium Sulfate 34 meq/ Multivitamins 10 ml/Chromium/ Copper/Manganese/ Zinc 1 ml/Sodium Phosphate 20 meq/ Potassium Acetate 50 meq/Amino Acids/Dextrose/ Purified Water 1,659.5 ml @ 68.537 mls/hr [id number] IV 01/09/25 09:30 01/09/25 21:59 Cancel Linezolid 300 ml @ 150 mls/hr Q12H IV 01/11/25 23:00 02/02/25 11:02 150 MLS/HR Fentanyl Citrate 250 ml @ 2.5 mls/hr Q24H IV 01/14/25 12:45 02/02/25 07:13 35 MLS/HR Acetylcysteine 200 mg Q6HR NEB 01/18/25 12:00 02/02/25 12:36 200 MG Thiamine HCl 100 mg DAILY IV 01/20/25 10:00 02/02/25 09:54 100 MG Folic Acid 1 mg DAILY PO 01/20/25 10:00 02/02/25 10:06 1 MG Acetaminophen 650 mg Q6HP PRN GT 01/22/25 10:15 01/29/25 09:50 650 MG Micafungin Sodium 100 mg/Sodium Chloride 100 ml @ 100 mls/hr DAILY IV 01/23/25 10:00 02/02/25 10:03 100 MLS/HR Enteral Nutritional Formula 1,000 ml 50ML/HR GT 01/23/25 13:00 02/01/25 20:45 1,000 ML Furosemide 40 mg DAILY IV 01/25/25 10:00 02/02/25 09:52 40 MG Levetiracetam 100 ml @ 400 mls/hr BID IV 01/26/25 10:00 02/02/25 09:41 400 MLS/HR Mupirocin 1 applic BID EACHNOSTRI 01/27/25 22:00 02/01/25 21:59 UNV Norepinephrine Bitartrate 250 ml @ 0.938 mls/ hr Q24H IV 01/30/25 19:15 01/31/25 17:35 1.86 MLS/HR Diphenhydramine HCl 25 mg Q6HP PRN IV 01/30/25 19:45 02/01/25 22:39 25 MG Haloperidol Lactate 5 mg Q6HR IM 01/31/25 12:00 02/02/25 11:56 5 MG laboratory and microbiology Laboratory Tests 02/02/25 03:05 Test 02/02/25 03:05 Range/Units Serum Glucose 94 74-106 mg/dL Assessment/Plan Production Control Expediter rounds Impression Acute hypoxemic respiratory failure Right upper extremity DVT S/p tracheostomy Sepsis S/p ex lap Patient seen and examined in ICU Events S/p tracheostomy Remains trach to vent requiring sedation withdrawal multiple meds Labs and imaging reviewed ABG reviewed Management Vent support Titrate to maintain sats 90% or above Sedation for vent synchrony continue haldol rec librium in an attempt to reduce drips Trache care per RT protocols Continue antibiotics and antifungals F/u cultures and ID Bronchodilators Monitor renal function Monitor electrolytes Supplement as needed F/u general surgery Continue anticoagulation therapy Critical care time 35 minutes Dietary Evaluation Review Comments: 1. TF: Vital AF@50ml/hr (90g protein, 1440kcal 973 free water) meeting Protein needs 83%, energy needs 80%. 2. TPN per pharmacy meeting 75% of his needs if TF not feasible or NPO>7 days. 3. Diet as tolerated per [employer] eval when off Vent Expected Outcomes/Goals: Preventing catabolism Plan discussed with: Other (rn) RENARD VALVERDE MD Feb 02, 2025 12:52
[2025-02-02 23:21] LABS: Base Excess 3.4 mmol/L (-2.0-3.0)
[2025-02-03] VITALS (102 sets, daily range): BP systolic 94–158; BP diastolic 37–101; PULSE 71–150; RESP 11–45; TEMP 97.9–99.7; O2SAT 88–100
[2025-02-03 03:44] LABS: Mean Corpuscular Volume 83.9 fL (80.0-100.0); Nucleated Red Blood Cells % 0.0 %
[2025-02-03 03:46] LABS: Hematocrit 27.5 % (41.0-53.0); Hemoglobin 9.4 g/dL (13.5-17.5); Mean Corpuscular Hemoglobin 28.7 pg (28.0-32.0)
[2025-02-03 03:53] LABS: Anion Gap 11 (5-15); Carbon Dioxide 28 mmol/L (20-31); Chloride 100 mmol/L (98-107); Potassium 3.7 mmol/L (3.5-5.1); Sodium 139 mmol/L (136-145)
[2025-02-03 03:54] LABS: Calcium 9.5 mg/dL (8.7-10.4)
[2025-02-03 03:59] LABS: BUN/Creatinine Ratio 11.3 (10.0-20.0); Glucose 96 mg/dL (74-106)
[2025-02-03 04:34] LABS: Blood Urea Nitrogen 6 mg/dL (9-23)
--- NOTE | 2025-02-03 09:23 | DVHPN2 ---
Subjective Patient able to follow some commands. Continues to be on multiple sedatives. Reviewed: Care Plan, H&P, Labs, Medications, Previous Orders, Radiology, Other (Consultations) Changes from previous H/P or p: No Changes Objective Vitals Vital Signs Date Time Temp Pulse Resp B/P (MAP) Pulse Ox O2 Delivery O2 Flow Rate FiO2 02/03/25 07:34 105/45 02/03/25 07:30 30 02/03/25 07:30 25 98 Mechanical Ventilator+ 02/03/25 07:30 99 02/03/25 07:30 99.7 211.5 Intake/Output Intake and Output 02/03/25 07:00 Intake Total 4066.489 ml Output Total 3615 ml Balance 451.489 ml Intake Oral 120 ml IV Total 3330.489 ml Tube Feeding 616 ml Output Urine Total 3600 ml Stool Total 10 ml Drainage Total 5 ml General Appearance: Alert, Other (Patient with chemical sedation) HEENT: Atraumatic, PERRLA, Other (Tracheostomy in place; Dobbhoff tube in place ) Lungs: Other (Clear breath sounds. On mechanical ventilation.) Cardiovascular: Regular rate, Normal S1, Normal S2, No murmurs Abdomen: Normal bowel sounds, Soft, Other (Midline surgical wound with wound VAC; SHIRLENE drain with serosanguineous fluid; colostomy with very minimal amount of greenish fluid) Genitourinary: Other (Martinez's in place) Neuro: Other (Sedated) Skin: Wounds (See nurse notes and pictures), Other (Please kindly refer to nursing documentation) Psych/Mental Status: Other (Sedated) Medications Current Medications Medications Dose Ordered Sig/Sherron Route Start Time Stop Time Status Last Admin Dose Admin Pantoprazole Sodium 40 mg DAILY IV 12/18/24 10:00 02/02/25 09:52 40 MG Midazolam HCl 50 ml @ 1 mls/hr Q24H IV 12/17/24 17:00 02/03/25 05:33 13 MLS/HR Valproate Sodium 250 mg/Sodium Chloride 52.5 ml @ 52.5 mls/hr BID IV 12/17/24 22:00 02/03/25 08:50 52.5 MLS/HR Propofol 100 ml @ 2.37 mls/hr Q24H IV 12/17/24 18:15 02/03/25 07:34 18.96 MLS/HR Diagnostic Test (Pha) 1 strip Q6HR 12/20/24 18:00 02/03/25 05:22 1 STRIP Insulin Human Regular FOLLOW SLIDING SCALE Q6HR SC 12/20/24 18:00 01/30/25 00:49 2 UNITS Dextrose 50 ml UD IV 12/20/24 14:15 12/20/24 17:47 50 ML Sodium Chloride 40 meq/Potassium Chloride 40 meq/ Potassium Phosphate 11 meq/ Calcium Gluconate 2.3 meq/Magnesium Sulfate 8 meq/ Multivitamins 10 ml/Chromium/ Copper/Manganese/ Zinc 1 ml/Amino Acids/Dextrose/ Purified Water 1,450.4462 ml @ 60 mls/hr [id number] IV 12/26/24 22:00 12/27/24 21:59 Cancel Ipratropium [place] 0.5 mg Q6HR NEB 12/27/24 18:00 02/03/25 05:42 0.5 MG Levalbuterol HCl 1.25 mg Q6HR NEB 12/27/24 18:00 02/03/25 05:42 1.25 MG Sodium Chloride 10 ml QSHIFT@10,22 IV 12/27/24 22:00 02/02/25 21:05 10 ML Artificial Tears 1 drop Q6HP PRN EACHEYE 12/29/24 23:45 01/06/25 09:00 1 DROP Meropenem 50 ml @ 17 mls/hr Q8HR IV 12/31/24 14:00 02/03/25 05:22 17 MLS/HR Ketamine HCl 50 mg [id number] PRN IV 01/04/25 15:00 01/05/25 07:00 Cancel Sodium Chloride 120 meq/Potassium Chloride 50 meq/ Potassium Acetate 50 meq/Calcium Gluconate 4.65 meq/Magnesium Sulfate 34 meq/ Multivitamins 10 ml/Chromium/ Copper/Manganese/ Zinc 1 ml/Amino Acids/Dextrose/ Purified Water 1,659.5 ml @ 68.108 mls/hr [id number] IV 01/09/25 22:00 01/10/25 21:59 Cancel Sodium Chloride 100 meq/Potassium Chloride 50 meq/ Calcium Gluconate 4.65 meq/ Magnesium Sulfate 34 meq/ Multivitamins 10 ml/Chromium/ Copper/Manganese/ Zinc 1 ml/Sodium Phosphate 20 meq/ Potassium Acetate 50 meq/Amino Acids/Dextrose/ Purified Water 1,659.5 ml @ 68.537 mls/hr [id number] IV 01/09/25 09:30 01/09/25 21:59 Cancel Linezolid 300 ml @ 150 mls/hr Q12H IV 01/11/25 23:00 02/02/25 22:39 150 MLS/HR Fentanyl Citrate 250 ml @ 2.5 mls/hr Q24H IV 01/14/25 12:45 02/03/25 04:55 30 MLS/HR Acetylcysteine 200 mg Q6HR NEB 01/18/25 12:00 02/03/25 05:43 200 MG Thiamine HCl 100 mg DAILY IV 01/20/25 10:00 02/02/25 09:54 100 MG Folic Acid 1 mg DAILY PO 01/20/25 10:00 02/02/25 10:06 1 MG Acetaminophen 650 mg Q6HP PRN GT 01/22/25 10:15 01/29/25 09:50 650 MG Micafungin Sodium 100 mg/Sodium Chloride 100 ml @ 100 mls/hr DAILY IV 01/23/25 10:00 02/02/25 10:03 100 MLS/HR Enteral Nutritional Formula 1,000 ml 50ML/HR GT 01/23/25 13:00 02/02/25 21:30 1,000 ML Furosemide 40 mg DAILY IV 01/25/25 10:00 02/02/25 09:52 40 MG Levetiracetam 100 ml @ 400 mls/hr BID IV 01/26/25 10:00 02/02/25 21:04 400 MLS/HR Mupirocin 1 applic BID EACHNOSTRI 01/27/25 22:00 02/01/25 21:59 UNV Norepinephrine Bitartrate 250 ml @ 0.938 mls/ hr Q24H IV 01/30/25 19:15 01/31/25 17:35 1.86 MLS/HR Diphenhydramine HCl 25 mg Q6HP PRN IV 01/30/25 19:45 02/01/25 22:39 25 MG Haloperidol Lactate 5 mg Q6HR IM 01/31/25 12:00 02/03/25 05:38 5 MG Laboratory Results Laboratory Tests 02/03/25 03:00 Chemistry Test 02/03/25 03:00 Calcium Level 9.5 mg/dL (8.7-10.4) Urinalysis Test 12/18/24 08:16 Urine Color Dark-brown (Yellow) Urine Clarity Ex.turbid (Clear) Urine pH 6.0 (5.0-9.0) Urine Specific [place] 1.041 (1.001-1.035) Urine Protein 1+ (Negative) H Urine Ketones Negative (Negative) Urine Blood Trace /uL (Negative) H Urine Nitrite Negative (Negative) Urine Bilirubin Negative (Negative) Urine Urobilinogen Normal mg/dL (Negative) Urine Leukocyte Esterase Negative /uL (Negative) Urine RBC 30 /hpf (0 - 3) Urine WBC Clumps Present /hpf (None Seen) Urine Microscopic WBC 151 /HPF (0-3) H Urine Squamous Epithelial Cells None seen /hpf (<5) Urine Bacteria None seen /hpf (None Seen) Urine Mucus Few (None Seen) Urine Glucose Normal mg/dL (Normal) Blood Gas Results Test 02/02/25 23:09 Arterial Blood pH 7.386 (7.350-7.450) FiO2 % 30.0 Microbiology Microbiology Date/Time Source Procedure Growth Status 01/22/25 18:44 Blood Blood Culture - Final NO GROWTH AFTER 5 DAYS OF INCUBATION. Complete 01/18/25 14:15 Urine - [place] Urine Culture - Final Complete 01/18/25 10:40 Sputum Gram Stain - Final Complete 01/18/25 10:40 Sputum Respiratory Culture - Final Complete 01/05/25 08:15 Other Abscess Gram Stain - Final Complete 01/05/25 08:15 Other Abscess Anaerobic Culture - Final Complete 01/05/25 08:15 Aerobic Culture - Final Enterococcus faecium - VRE Complete 01/05/25 08:02 Peritoneal Fluid Gram Stain - Final Complete 01/05/25 08:02 Peritoneal Fluid Anaerobic Culture - Final Complete 01/05/25 08:02 Aerobic Culture - Final Enterococcus faecium - VRE Citrobacter freundii Vanc Resistant Enterococcus Complete Labs and/or images reviewed: Labs reviewed by me, Image(s) reviewed by me Assessment/Plan Assessment/Plan Impression: -septic shock -acute peritonitis secondary to VRE in Citrobacter Freundii -DVT to right IJ and subclavian vein. Thrombus also noted in axillary and brachial vein -acute hypoxic respiratory failure with failure of weaning from mechanical ventilation -status post tracheostomy -constipation -ARDS -history of epilepsy -acute delirium -metabolic encephalopathy Plan: Events: Patient tolerated CPAP for multiple hours yesterday. -titrated off Versed drip. Start Librium q.6 hours via G-tube. Continue IM Haldol -continue IV diuresis -continue current antibiotic therapy -bronchodilators as needed -surgical recommendations appreciated. Minimal output from SHIRLENE drain -repeat labs, chest x-ray in a.m. Critical care time spent with patient discussing and formulating plan of care: 40 minutes. This does not include time spent performing procedures. This medical document was created using an electronic medical record system with [employer] dictation system. Although this document has been carefully reviewed, there may still be some phonetic and typographical errors. These areas are purely typographical due to imperfections of the software programs, and do not reflect any compromise in the patient's medical care. Plan discussed with: Patient, Other (RN) My Orders Orders - BRENDON WILLIAM NP Procedure Category Date Status Time Cpap Trial For Am ORDERS 02/02/25 Transmitted 10:23 Basic Metabolic Panel LAB 02/04/25 Verified 05:00 Basic Metabolic Panel LAB 02/05/25 Verified 05:00 Complete Blood Count LAB 02/04/25 Verified 05:00 Complete Blood Count LAB 02/05/25 Verified 05:00 Chlordiazepoxide Hcl PHA 02/03/25 Logged Capsule (Librium Ca 09:30 Cpap Trial For Am ORDERS 02/03/25 Transmitted 09:18 Cpap/Sed Vacation Med ORDERS 02/03/25 Transmitted Weaning 09:18 Comprehensive LAB 02/04/25 Verified Metabolic Panel 04:00 Complete Blood Count LAB 02/04/25 Verified 04:00 Chest Portable XY 02/04/25 Logged 04:00 Date of Service: Feb 03, 2025 Billing Provider: BRENDON WILLIAM NP Common Visit Codes: [id number] CARE 30-74 MIN BRENDON WILLIAM NP Feb 03, 2025 09:23
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
--- NOTE | 2025-02-03 16:20 | DVHPN2 ---
Progress Note - Dictate Date Seen: Feb 03, 2025 Has the PT tested + for MRSA If YES, has PT been informed?: No Medical Necessity Reason Pt with a Central, PICC or Fol: Yes The following are medically ne: Navarrete Catheter Reason for navarrete catheter: Strict I&O Subjective Patient is stable from a GI point of view He is tolerating tube feedings He has more output from his colostomy Patient is undergoing CPAP trial He continues to be somewhat agitated and pain requiring low-dose sedation with propofol Precedex Wound granulating, good urine output, drains with minimal serous output, Hemoglobin stable at 9.4 after 2 units PRBC No active GI bleeding reported Leukocytosis improving; thrombocytosis persists Patient is on multiple antibiotics needing renewal vital signs Vital Sign Date Time Temp Pulse Resp B/P (MAP) Pulse Ox O2 Delivery O2 Flow Rate FiO2 02/03/25 15:50 30 02/03/25 15:50 25 97 Mechanical Ventilator+ 02/03/25 15:07 131 138/81 (100) 02/03/25 12:00 97.9 208.2 Total Intake and Output 02/02/25 02/02/25 02/03/25 15:00 23:00 07:00 Intake Total 1267.801 ml 1655.390 ml 1143.298 ml Output Total 2500 ml 1115 ml Balance 1267.801 ml -844.610 ml 28.298 ml medications Current Medications Medications Dose Ordered Sig/Sherron Route Start Time Stop Time Status Last Admin Dose Admin Pantoprazole Sodium 40 mg DAILY IV 12/18/24 10:00 02/03/25 09:16 40 MG Midazolam HCl 50 ml @ 1 mls/hr Q24H IV 12/17/24 17:00 02/03/25 10:30 7 MLS/HR Valproate Sodium 250 mg/Sodium Chloride 52.5 ml @ 52.5 mls/hr BID IV 12/17/24 22:00 02/03/25 08:50 52.5 MLS/HR Propofol 100 ml @ 2.37 mls/hr Q24H IV 12/17/24 18:15 02/03/25 12:30 11.85 MLS/HR Diagnostic Test (Pha) 1 strip Q6HR 12/20/24 18:00 02/03/25 11:55 1 STRIP Insulin Human Regular FOLLOW SLIDING SCALE Q6HR SC 12/20/24 18:00 8/13/25 00:49 2 UNITS Dextrose 50 ml UD IV 12/20/24 14:15 12/20/24 17:47 50 ML Sodium Chloride 40 meq/Potassium Chloride 40 meq/ Potassium Phosphate 11 meq/ Calcium Gluconate 2.3 meq/Magnesium Sulfate 8 meq/ Multivitamins 10 ml/Chromium/ Copper/Manganese/ Zinc 1 ml/Amino Acids/Dextrose/ Purified Water 1,450.4462 ml @ 60 mls/hr [id number] IV 12/26/24 22:00 12/27/24 21:59 Cancel Ipratropium [place] 0.5 mg Q6HR NEB 12/27/24 18:00 02/03/25 11:33 0.5 MG Levalbuterol HCl 1.25 mg Q6HR NEB 12/27/24 18:00 02/03/25 11:33 1.25 MG Sodium Chloride 10 ml QSHIFT@10,22 IV 12/27/24 22:00 02/03/25 10:10 10 ML Artificial Tears 1 drop Q6HP PRN EACHEYE 12/29/24 23:45 01/06/25 09:00 1 DROP Meropenem 50 ml @ 17 mls/hr Q8HR IV 12/31/24 14:00 02/03/25 15:04 17 MLS/HR Ketamine HCl 50 mg [id number] PRN IV 01/04/25 15:00 01/05/25 07:00 Cancel Sodium Chloride 120 meq/Potassium Chloride 50 meq/ Potassium Acetate 50 meq/Calcium Gluconate 4.65 meq/Magnesium Sulfate 34 meq/ Multivitamins 10 ml/Chromium/ Copper/Manganese/ Zinc 1 ml/Amino Acids/Dextrose/ Purified Water 1,659.5 ml @ 68.108 mls/hr [id number] IV 01/09/25 22:00 01/10/25 21:59 Cancel Sodium Chloride 100 meq/Potassium Chloride 50 meq/ Calcium Gluconate 4.65 meq/ Magnesium Sulfate 34 meq/ Multivitamins 10 ml/Chromium/ Copper/Manganese/ Zinc 1 ml/Sodium Phosphate 20 meq/ Potassium Acetate 50 meq/Amino Acids/Dextrose/ Purified Water 1,659.5 ml @ 68.537 mls/hr [id number] IV 01/09/25 09:30 01/09/25 21:59 Cancel Linezolid 300 ml @ 150 mls/hr Q12H IV 01/11/25 23:00 02/03/25 11:36 150 MLS/HR Fentanyl Citrate 250 ml @ 2.5 mls/hr Q24H IV 01/14/25 12:45 02/03/25 13:00 30 MLS/HR Acetylcysteine 200 mg Q6HR NEB 01/18/25 12:00 02/03/25 11:33 200 MG Thiamine HCl 100 mg DAILY IV 01/20/25 10:00 02/03/25 09:16 100 MG Folic Acid 1 mg DAILY PO 01/20/25 10:00 02/03/25 09:34 1 MG Acetaminophen 650 mg Q6HP PRN GT 01/22/25 10:15 01/29/25 09:50 650 MG Micafungin Sodium 100 mg/Sodium Chloride 100 ml @ 100 mls/hr DAILY IV 01/23/25 10:00 02/03/25 10:20 100 MLS/HR Enteral Nutritional Formula 1,000 ml 50ML/HR GT 01/23/25 13:00 02/02/25 21:30 1,000 ML Furosemide 40 mg DAILY IV 01/25/25 10:00 02/03/25 09:17 40 MG Levetiracetam 100 ml @ 400 mls/hr BID IV 01/26/25 10:00 02/03/25 09:17 400 MLS/HR Mupirocin 1 applic BID EACHNOSTRI 01/27/25 22:00 02/01/25 21:59 UNV Norepinephrine Bitartrate 250 ml @ 0.938 mls/ hr Q24H IV 01/30/25 19:15 01/31/25 17:35 1.86 MLS/HR Diphenhydramine HCl 25 mg Q6HP PRN IV 01/30/25 19:45 02/03/25 10:12 25 MG Haloperidol Lactate 5 mg Q6HR IM 01/31/25 12:00 02/03/25 11:31 5 MG Chlordiazepoxide HCl 50 mg QID PO 02/03/25 18:00 objective General Appearance: s/p trach on ventilator agitated, overbreathing, trashing around PERRLA MMM mechanical breath sounds s1 s2 tachy abdomen with surg scar and colostomy Abdominal: Binder in place, soft, distended, no bowel sounds; minimal colostomy liquid output Extremities: No clubbing, No cyanosis, No edema, Normal pulses, No tenderness/swelling laboratory and microbiology Laboratory Tests 02/03/25 03:00 Test 02/03/25 03:00 Range/Units Serum Glucose 96 74-106 mg/dL Problems(with codes): (1) Sigmoid colon injury (2) Septicemia due to vancomycin resistant Enterococcus (VRE) species (3) Peritonitis (4) Constipation (5) Acute respiratory failure (6) Sepsis, unspecified organism (7) Generalized weakness (8) Acute abdominal pain (9) Leukocytosis (10) Leukocytosis, unspecified (11) Abdominal pain (12) Abnormal finding on GI tract imaging Prognosis Plan Continue supportive care Continue enteral tube feedings CPAP trial ongoing Sedation as required This patient might need long-term pain management referral Dietary Evaluation Review Comments: 1. TF: Vital AF@50ml/hr (90g protein, 1440kcal 973 free water) meeting Protein needs 83%, energy needs 80%. 2. TPN per pharmacy meeting 75% of his needs if TF not feasible or NPO>7 days. 3. Diet as tolerated per POLITICAL SCIENCE PROFESSOR eval when off Vent Expected Outcomes/Goals: Preventing catabolism Plan discussed with: Other (ICU Nurse) MAO COLEMAN MD Feb 03, 2025 16:20
[2025-02-04] VITALS (104 sets, daily range): BP systolic 85–142; BP diastolic 28–82; PULSE 91–140; RESP 10–49; TEMP 98.2–98.9; O2SAT 94–100
[2025-02-04 04:06] LABS: Hematocrit 26.7 % (41.0-53.0); Hemoglobin 8.9 g/dL (13.5-17.5); Mean Corpuscular Hemoglobin 27.9 pg (28.0-32.0); Mean Corpuscular Volume 83.3 fL (80.0-100.0); Nucleated Red Blood Cells % 0.0 %
[2025-02-04 04:24] LABS: Alanine Aminotransferase 10 U/L (7-40); Alkaline Phosphatase 84 U/L (46-116); Anion Gap 11 (5-15); BUN/Creatinine Ratio 11.5 (10.0-20.0); Calcium 9.5 mg/dL (8.7-10.4); Carbon Dioxide 29 mmol/L (20-31); Glucose 104 mg/dL (74-106); Sodium 138 mmol/L (136-145)
[2025-02-04 04:25] LABS: Total Protein 6.7 g/dL (5.7-8.2)
[2025-02-04 04:26] LABS: Albumin 3.6 g/dL (3.2-4.8)
[2025-02-04 04:29] LABS: Bilirubin, Total 0.3 mg/dL (0.2-1.0); Blood Urea Nitrogen 6 mg/dL (9-23); Chloride 98 mmol/L (98-107); Potassium 2.9 mmol/L (3.5-5.1)
--- NOTE | 2025-02-04 05:03 | DVH ---
CHEST RADIOGRAPH Indication: ards Technique: Single frontal view of the chest was obtained COMPARISON: XY CHEST XRAY 1 VIEW on DOS: 02/02/25, XY CHEST XRAY 1 VIEW on DOS: 02/01/25, XY CHEST XRAY 1 VIEW on DOS: 01/31/25, XY CHEST XRAY 1 VIEW on DOS: 01/31/25, XY CHEST XRAY 1 VIEW on DOS: 01/30/25 FINDINGS: Lines and Tubes: Unchanged. Lungs: Slight improvement in diffuse right hemithoracic pulmonary airspace disease with consolidative features. No definite evidence of pleural effusion. No pneumothorax. Cardiomediastinal contours: Unremarkable Bones: Unremarkable IMPRESSION: 1. Slight interval improvement in diffuse right hemithoracic pulmonary airspace disease with consolid ative features. 2. Lines and tubes unchanged.
[2025-02-04] MEDS: POTASSIUM CHL 20MEQ/100ML 100 ML IV SCH (06:26)
[2025-02-04 09:34] LABS: Base Excess 4.1 mmol/L (-2.0-3.0)
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
[2025-02-04] MEDS: ERTAPENEM SOD INJ 1 GM in SODIUM CHL 0.9% 50 ML IV ONE (18:01)
--- NOTE | 2025-02-04 18:53 | DVHPN2 ---
Progress Note Date Seen: Feb 04, 2025 Resident Creating Document: SOPHIE LANDEROS RESIDENT Has the PT tested + for MRSA If YES, has PT been informed?: No Medical Necessity Reason Pt with a Central, PICC or Fol: Yes The following are medically ne: Navarrete Catheter Reason for navarrete catheter: Strict I&O Subjective Review of Systems TODAY'S PROGRESS The patient remains on trach collar, FiO2 35, tolerating well NG tube feeds restarted, currently on bolus feeding regimen. Received 250 mL bolus today. Colostomy output-45 mL noted today, with additional output overnight. No nausea abdominal pain, vomiting observed. Plan for swallow evaluation in 2-3 days to assess readiness for oral intake. WBC count normalized at 10.4, hemoglobin at 8.9 yesterday 9.4, stable trend Platelet count revealed thrombocytosis elevated at 743 K. Neuro standpoint-alert, awake and more arousable today. Objective vital signs Vital Sign Date Time Temp Pulse Resp B/P (MAP) Pulse Ox O2 Delivery O2 Flow Rate FiO2 02/04/25 18:15 111 21 102/68 (79) 100 02/04/25 18:00 Trach Collar 11 35 35 02/04/25 16:00 98.5 98.5 Total Intake and Output 02/03/25 02/03/25 02/04/25 15:00 23:00 07:00 Intake Total 1227.330 ml 1105.04 ml 1077.30 ml Output Total 5400 ml 725 ml Balance 1227.330 ml -4294.96 ml 352.30 ml medications Current Medications Medications Dose Ordered Sig/Sherron Route Start Time Stop Time Status Last Admin Dose Admin Pantoprazole Sodium 40 mg DAILY IV 12/18/24 10:00 02/04/25 09:48 40 MG Midazolam HCl 50 ml @ 1 mls/hr Q24H IV 12/17/24 17:00 02/04/25 00:35 5 MLS/HR Valproate Sodium 250 mg/Sodium Chloride 52.5 ml @ 52.5 mls/hr BID IV 12/17/24 22:00 02/04/25 10:00 52.5 MLS/HR Propofol 100 ml @ 2.37 mls/hr Q24H IV 12/17/24 18:15 02/04/25 15:30 16.59 MLS/HR Diagnostic Test (Pha) 1 strip Q6HR 7/3/25 18:00 02/04/25 18:03 1 STRIP Insulin Human Regular FOLLOW SLIDING SCALE Q6HR SC 12/20/24 18:00 01/30/25 00:49 2 UNITS Dextrose 50 ml UD IV 12/20/24 14:15 12/20/24 17:47 50 ML Sodium Chloride 40 meq/Potassium Chloride 40 meq/ Potassium Phosphate 11 meq/ Calcium Gluconate 2.3 meq/Magnesium Sulfate 8 meq/ Multivitamins 10 ml/Chromium/ Copper/Manganese/ Zinc 1 ml/Amino Acids/Dextrose/ Purified Water 1,450.4462 ml @ 60 mls/hr [id number] IV 12/26/24 22:00 12/27/24 21:59 Cancel Sodium Chloride 10 ml QSHIFT@ IV 12/27/24 22:00 02/04/25 10:00 10 ML Artificial Tears 1 drop Q6HP PRN EACHEYE 12/29/24 23:45 01/06/25 09:00 1 DROP Ketamine HCl 50 mg [id number] PRN IV 01/04/25 15:00 01/05/25 07:00 Cancel Sodium Chloride 120 meq/Potassium Chloride 50 meq/ Potassium Acetate 50 meq/Calcium Gluconate 4.65 meq/Magnesium Sulfate 34 meq/ Multivitamins 10 ml/Chromium/ Copper/Manganese/ Zinc 1 ml/Amino Acids/Dextrose/ Purified Water 1,659.5 ml @ 68.108 mls/hr [id number] IV 01/09/25 22:00 01/10/25 21:59 Cancel Sodium Chloride 100 meq/Potassium Chloride 50 meq/ Calcium Gluconate 4.65 meq/ Magnesium Sulfate 34 meq/ Multivitamins 10 ml/Chromium/ Copper/Manganese/ Zinc 1 ml/Sodium Phosphate 20 meq/ Potassium Acetate 50 meq/Amino Acids/Dextrose/ Purified Water 1,659.5 ml @ 68.537 mls/hr [id number] IV 01/09/25 09:30 01/09/25 21:59 Cancel Linezolid 300 ml @ 150 mls/hr Q12H IV 01/11/25 23:00 02/04/25 10:07 150 MLS/HR Fentanyl Citrate 250 ml @ 2.5 mls/hr Q24H IV 01/14/25 12:45 02/04/25 10:31 35 MLS/HR Thiamine HCl 100 mg DAILY IV 01/20/25 10:00 02/04/25 09:48 100 MG Folic Acid 1 mg DAILY PO 01/20/25 10:00 02/04/25 09:48 1 MG Acetaminophen 650 mg Q6HP PRN GT 01/22/25 10:15 02/04/25 14:37 650 MG Micafungin Sodium 100 mg/Sodium Chloride 100 ml @ 100 mls/hr DAILY IV 01/23/25 10:00 02/04/25 10:07 100 MLS/HR Enteral Nutritional Formula 1,000 ml 50ML/HR GT 01/23/25 13:00 02/02/25 21:30 1,000 ML Furosemide 40 mg DAILY IV 01/25/25 10:00 02/04/25 09:48 40 MG Levetiracetam 100 ml @ 400 mls/hr BID IV 01/26/25 10:00 02/04/25 09:49 400 MLS/HR Mupirocin 1 applic BID EACHNOSTRI 01/27/25 22:00 02/01/25 21:59 UNV Norepinephrine Bitartrate 250 ml @ 0.938 mls/ hr Q24H IV 01/30/25 19:15 01/31/25 17:35 1.86 MLS/HR Diphenhydramine HCl 25 mg Q6HP PRN IV 01/30/25 19:45 02/03/25 10:12 25 MG Haloperidol Lactate 5 mg Q6HR IM 01/31/25 12:00 02/04/25 17:43 5 MG Chlordiazepoxide HCl 50 mg QID PO 02/03/25 18:00 02/04/25 17:43 50 MG Acetylcysteine 200 mg Q8HR NEB 02/04/25 22:00 Ipratropium Blackwell 0.5 mg Q8HR NEB 02/04/25 22:00 Levalbuterol HCl 1.25 mg Q8HR NEB 02/04/25 22:00 Ertapenem 1 gm/ Sodium Chloride 50 ml @ 100 mls/hr DAILY@0900 IV 02/05/25 09:00 laboratory and microbiology Laboratory Tests 02/04/25 03:20 Test 02/04/25 03:20 Range/Units Serum Glucose 104 74-106 mg/dL Microbiology Date/Time Source Procedure Growth Status 01/22/25 18:44 Blood Blood Culture - Final NO GROWTH AFTER 5 DAYS OF INCUBATION. Complete 01/18/25 14:15 Urine - Navarrete Port Urine Culture - Final Complete 01/18/25 10:40 Sputum Gram Stain - Final Complete 01/18/25 10:40 Sputum Respiratory Culture - Final Complete 01/05/25 08:15 Other Abscess Gram Stain - Final Complete 01/05/25 08:15 Other Abscess Anaerobic Culture - Final Complete 01/05/25 08:15 Aerobic Culture - Final Enterococcus faecium - VRE Complete 01/05/25 08:02 Peritoneal Fluid Gram Stain - Final Complete 01/05/25 08:02 Peritoneal Fluid Anaerobic Culture - Final Complete 01/05/25 08:02 Aerobic Culture - Final Enterococcus faecium - VRE Citrobacter freundii Vanc Resistant Enterococcus Complete Problem List/Assessment/Plan Problem List/Assessment/Plan Assessment 1. Postoperative status after laparotomy with colostomy and abscess drainage stable, signs of return of bowel function. 2. Enteral nutrition initiation (trickle feeds) tolerated with modest residuals; no signs of feeding intolerance or obstruction. 3. NG bile output expected in the context of early enteral feeding; continue monitoring for changes. 4. Colostomy function output stable, no ischemia or obstruction. 5. Sepsis from VRE/Citrobacter peritonitis improving on antibiotics. 6. TPN dependence continuing alongside trickle feeds. Treatment Plan Repeat CT is reassuring as there is slight improvement Clinically patient appears stable from a GI point of view Schedule swallow evaluation in 2-3 days to assess readiness for oral intake Continue supportive care, continue tube feedings as tolerated Wound care Gastrointestinal * Continue NG TUBE Feeds at 50mL/hr, reassess tolerance (residuals, abdominal exam) q12h. * Continue Reglan IV q8h to aid GI motility. * Monitor colostomy output for volume, consistency, and viability. * Continue wound VAC care. Infectious Disease * Continue ANTIBIOTICS * Monitor cultures, WBC count, and temperature trends. Nutrition * Continue enteral feeds as tolerated. * Monitor electrolytes, albumin, and nutritional markers daily. Prophylaxis * Stress ulcer prophylaxis: Continue IV Pantoprazole. We will continue to monitor the patient. Case discussed in detail with the attending physician, including the clinical presentation, diagnostic workup, and comprehensive management plan. Plan discussed with: Other (RN) Dietary Evaluation Review Comments: 1. TF: Vital AF@50ml/hr (90g protein, 1440kcal 973 free water) meeting Protein needs 83%, energy needs 80%. 2. TPN per pharmacy meeting 75% of his needs if TF not feasible or NPO>7 days. 3. Diet as tolerated per FORESTRY EXTENSION SPECIALIST eval when off Vent Expected Outcomes/Goals: Preventing catabolism SOPHIE LANDEROS RESIDENT Feb 04, 2025 18:53
[2025-02-04] MEDS: FUROSEMIDE 40 MG/4 ML VIAL IV ONE (20:25)
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
[2025-02-04] MEDS: ACETYLCYSTEINE 20%(200MG/ML) SOL 4ML NEB SCH (21:57)
[2025-02-04] MEDS: LEVALBUTEROL HCL 1.25 MG/3 ML NEB NEB SCH (21:58)
[2025-02-04] MEDS: IPRATROPIUM BROM 0.5 MG/2.5ML INH SOL NEB SCH (22:00)
[2025-02-05] VITALS (105 sets, daily range): BP systolic 83–146; BP diastolic 41–92; PULSE 92–144; RESP 10–47; TEMP 97.3–99; O2SAT 92–100
[2025-02-05 03:57] LABS: Hematocrit 29.6 % (41.0-53.0); Hemoglobin 9.8 g/dL (13.5-17.5); Mean Corpuscular Hemoglobin 27.6 pg (28.0-32.0); Mean Corpuscular Volume 83.4 fL (80.0-100.0); Nucleated Red Blood Cells % 0.0 %
[2025-02-05 04:02] LABS: Alanine Aminotransferase 11 U/L (7-40); Albumin 4.0 g/dL (3.2-4.8); Alkaline Phosphatase 94 U/L (46-116); Anion Gap 10 (5-15); BUN/Creatinine Ratio 17.3 (10.0-20.0); Blood Urea Nitrogen 9 mg/dL (9-23); Calcium 9.1 mg/dL (8.7-10.4); Carbon Dioxide 30 mmol/L (20-31); Potassium 3.5 mmol/L (3.5-5.1); Sodium 136 mmol/L (136-145); Total Protein 7.4 g/dL (5.7-8.2)
[2025-02-05 04:06] LABS: Bilirubin, Total 0.2 mg/dL (0.2-1.0); Chloride 96 mmol/L (98-107); Glucose 110 mg/dL (74-106); Magnesium 1.5 mg/dL (1.6-2.6)
[2025-02-05] MEDS: DexmedeTOMIDine 4 ML IV ONE (04:59)
--- NOTE | 2025-02-05 05:28 | DVH ---
CHEST RADIOGRAPH Indication: bilateral congestion Technique: Single frontal view of the chest was obtained COMPARISON: XY CHEST PORTABLE on DOS: 02/04/25, XY CHEST XRAY 1 VIEW on DOS: 02/02/25, XY CHEST XRAY 1 VIEW on DOS: 02/01/25, XY CHEST XRAY 1 VIEW on DOS: 01/31/25, XY CHEST XRAY 1 VIEW on DOS: 01/31/25 FINDINGS: Lines and Tubes: Unchanged. Lungs: The patient's lowered chin partially obscures the left apex. Grossly stable appearing diffuse bilateral pulmonary airspace disease, [id number]-left, with mild right basilar consolidative features. Pleura: No effusion. No pneumothorax. Cardiomediastinal contours: Unremarkable Bones: Unremarkable IMPRESSION: 1. Grossly stable appearing diffuse bilateral pulmonary airspace disease, [id number]-left, wi th mild right basilar consolidative features. The patient's lower chin partially obscures the left a pex. 2. Lines and tubes unchanged.
[2025-02-05 07:29] LABS: Base Excess 5.5 mmol/L (-2.0-3.0)
[2025-02-05] MEDS: ERTAPENEM SOD INJ 1 GM in SODIUM CHL 0.9% 50 ML IV SCH (07:56)
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
[2025-02-05] MEDS: MAGNESIUM SULFATE 1GM/100ML 100 ML IV SCH (11:24)
[2025-02-05] MEDS: POTASSIUM CHL 20MEQ/100ML 100 ML IV SCH (11:27)
[2025-02-05 16:19] LABS: Potassium 3.7 mmol/L (3.5-5.1)
[2025-02-05 16:25] LABS: Magnesium 2.0 mg/dL (1.6-2.6)
--- NOTE | 2025-02-05 16:50 | DVHPN2 ---
Progress Note Date Seen: Feb 05, 2025 Resident Creating Document: SOPHIE LANDEROS RESIDENT Has the PT tested + for MRSA If YES, has PT been informed?: No Medical Necessity Reason Pt with a Central, PICC or Fol: Yes The following are medically ne: Navarrete Catheter Reason for navarrete catheter: Strict I&O Subjective Review of Systems Patient remains on trach collar. He continues to receive bolus NG tube feeds as he is unable to tolerate continuous NG tube feeds due to repeated tube dislodgement. Today he received 250 mL bolus NG tube feeds. Colostomy output is 300 mL overnight, nonbloody. Patient is off sedation propofol discontinued and he is arousable. Planned for swallow evaluation in next 1-2 days. To assess for candidacy for p.o. intake once clinically appropriate. Laboratory findings revealed WBC increased to 13.3 previously at 10.4. Hemoglobin stable at 9.8. Platelets elevated at 844 thrombocytosis. Electrolytes and renal parameters are stable. Patient remains hemodynamically stable and afebrile. He is being transferred and discharged to LTAC facility for further long-term management, ventilator weaning support and on nutritional optimization Objective vital signs Vital Sign Date Time Temp Pulse Resp B/P (MAP) Pulse Ox O2 Delivery O2 Flow Rate FiO2 02/05/25 16:00 135/85 02/05/25 15:29 97 T-piece 8 35 35 02/05/25 14:30 110 13 02/05/25 12:00 97.3 97.3 Total Intake and Output 02/04/25 02/04/25 02/05/25 15:00 23:00 07:00 Intake Total 1327.75 ml 1001.55 ml 1358.83 ml Output Total 2800 ml 550 ml Balance 1327.75 ml -1798.45 ml 808.83 ml medications Current Medications Medications Dose Ordered Sig/Sherron Route Start Time Stop Time Status Last Admin Dose Admin Pantoprazole Sodium 40 mg DAILY IV 12/18/24 10:00 02/05/25 08:41 40 MG Midazolam HCl 50 ml @ 1 mls/hr Q24H IV 12/17/24 17:00 02/04/25 00:35 5 MLS/HR Valproate Sodium 250 mg/Sodium Chloride 52.5 ml @ 52.5 mls/hr BID IV 12/17/24 22:00 02/05/25 10:14 52.5 MLS/HR Propofol 100 ml @ 2.37 mls/hr Q24H IV 12/17/24 18:15 02/05/25 01:33 14.22 MLS/HR Diagnostic Test (Pha) 1 strip Q6HR 12/20/24 18:00 02/05/25 11:40 1 STRIP Insulin Human Regular FOLLOW SLIDING SCALE Q6HR SC 12/20/24 18:00 02/05/25 11:39 2 UNITS Dextrose 50 ml UD IV 12/20/24 14:15 12/20/24 17:47 50 ML Sodium Chloride 40 meq/Potassium Chloride 40 meq/ Potassium Phosphate 11 meq/ Calcium Gluconate 2.3 meq/Magnesium Sulfate 8 meq/ Multivitamins 10 ml/Chromium/ Copper/Manganese/ Zinc 1 ml/Amino Acids/Dextrose/ Purified Water 1,450.4462 ml @ 60 mls/hr [id number] IV 12/26/24 22:00 12/27/24 21:59 Cancel Sodium Chloride 10 ml QSHIFT@10,22 IV 12/27/24 22:00 02/05/25 08:41 10 ML Artificial Tears 1 drop Q6HP PRN EACHEYE 12/29/24 23:45 01/06/25 09:00 1 DROP Ketamine HCl 50 mg [id number] PRN IV 01/04/25 15:00 01/05/25 07:00 Cancel Sodium Chloride 120 meq/Potassium Chloride 50 meq/ Potassium Acetate 50 meq/Calcium Gluconate 4.65 meq/Magnesium Sulfate 34 meq/ Multivitamins 10 ml/Chromium/ Copper/Manganese/ Zinc 1 ml/Amino Acids/Dextrose/ Purified Water 1,659.5 ml @ 68.108 mls/hr [id number] IV 01/09/25 22:00 01/10/25 21:59 Cancel Sodium Chloride 100 meq/Potassium Chloride 50 meq/ Calcium Gluconate 4.65 meq/ Magnesium Sulfate 34 meq/ Multivitamins 10 ml/Chromium/ Copper/Manganese/ Zinc 1 ml/Sodium Phosphate 20 meq/ Potassium Acetate 50 meq/Amino Acids/Dextrose/ Purified Water 1,659.5 ml @ 68.537 mls/hr [id number] IV 01/09/25 09:30 01/09/25 21:59 Cancel Linezolid 300 ml @ 150 mls/hr Q12H IV 01/11/25 23:00 02/05/25 10:16 150 MLS/HR Fentanyl Citrate 250 ml @ 2.5 mls/hr Q24H IV 01/14/25 12:45 02/05/25 14:47 30 MLS/HR Thiamine HCl 100 mg DAILY IV 01/20/25 10:00 02/05/25 08:41 100 MG Folic Acid 1 mg DAILY PO 01/20/25 10:00 02/05/25 08:41 1 MG Acetaminophen 650 mg Q6HP PRN GT 01/22/25 10:15 02/05/25 09:54 650 MG Micafungin Sodium 100 mg/Sodium Chloride 100 ml @ 100 mls/hr DAILY IV 01/23/25 10:00 02/05/25 09:00 100 MLS/HR Enteral Nutritional Formula 1,000 ml 50ML/HR GT 01/23/25 13:00 02/02/25 21:30 1,000 ML Furosemide 40 mg DAILY IV 01/25/25 10:00 02/05/25 08:41 40 MG Levetiracetam 100 ml @ 400 mls/hr BID IV 01/26/25 10:00 02/05/25 08:40 400 MLS/HR Mupirocin 1 applic BID EACHNOSTRI 01/27/25 22:00 02/01/25 21:59 UNV Norepinephrine Bitartrate 250 ml @ 0.938 mls/ hr Q24H IV 01/30/25 19:15 01/31/25 17:35 1.86 MLS/HR Diphenhydramine HCl 25 mg Q6HP PRN IV 01/30/25 19:45 02/03/25 10:12 25 MG Chlordiazepoxide HCl 50 mg QID PO 02/03/25 18:00 02/05/25 11:30 50 MG Acetylcysteine 200 mg Q8HR NEB 02/04/25 22:00 02/05/25 13:52 200 MG Ipratropium [place] 0.5 mg Q8HR NEB 02/04/25 22:00 02/05/25 13:52 0.5 MG Levalbuterol HCl 1.25 mg Q8HR NEB 02/04/25 22:00 02/05/25 13:52 1.25 MG Ertapenem 1 gm/ Sodium Chloride 50 ml @ 100 mls/hr DAILY@0900 IV 02/05/25 09:00 02/05/25 07:56 100 MLS/HR Olanzapine 10 mg BID PO 02/05/25 22:00 Examination Gen - no pallor, no icterus, no cyanosis, right upper extremity edema GI - soft abdomen. Midline incision with a wound VAC. Right upper quadrant colostomy, left upper quadrant mucous fistula, SHIRLENE drains on left and right draining minimal . Bowel sounds normoactive laboratory and microbiology Laboratory Tests 02/05/25 15:52 02/05/25 03:12 Test 02/05/25 03:12 Range/Units Serum Glucose 110 H 74-106 mg/dL Microbiology Date/Time Source Procedure Growth Status 01/22/25 18:44 Blood Blood Culture - Final NO GROWTH AFTER 5 DAYS OF INCUBATION. Complete 01/18/25 14:15 Urine - Navarrete Port Urine Culture - Final Complete 01/18/25 10:40 Sputum Gram Stain - Final Complete 01/18/25 10:40 Sputum Respiratory Culture - Final Complete 01/05/25 08:15 Other Abscess Gram Stain - Final Complete 01/05/25 08:15 Other Abscess Anaerobic Culture - Final Complete 01/05/25 08:15 Aerobic Culture - Final Enterococcus faecium - VRE Complete 01/05/25 08:02 Peritoneal Fluid Gram Stain - Final Complete 01/05/25 08:02 Peritoneal Fluid Anaerobic Culture - Final Complete 01/05/25 08:02 Aerobic Culture - Final Enterococcus faecium - VRE Citrobacter freundii Vanc Resistant Enterococcus Complete Problem List/Assessment/Plan Problem List/Assessment/Plan Assessment 1. Postoperative status after laparotomy with colostomy and abscess drainage stable, signs of return of bowel function. 2. Enteral nutrition initiation (trickle feeds) tolerated with modest residuals; no signs of feeding intolerance or obstruction. 3. NG bile output expected in the context of early enteral feeding; continue monitoring for changes. 4. Colostomy function output stable, no ischemia or obstruction. 5. Sepsis from VRE/Citrobacter peritonitis improving on antibiotics. 6. TPN dependence continuing alongside trickle feeds. Treatment Plan Requires ongoing NG tube feeding management, colostomy care and swallow evaluation. The patient is being discharged and transferred to LTAC care for long-term care management Clinically patient appears stable from a GI point of view Schedule swallow evaluation in 1-2 days to assess readiness for oral intake Continue supportive care, continue tube feedings as tolerated Wound care Gastrointestinal * Continue NG TUBE Feeds at 50mL/hr, reassess tolerance (residuals, abdominal exam) q12h. * Continue Reglan IV q8h to aid GI motility. * Monitor colostomy output for volume, consistency, and viability. * Continue wound VAC care. Infectious Disease * Continue ANTIBIOTICS * Monitor cultures, WBC count, and temperature trends. Nutrition * Continue enteral feeds as tolerated. * Monitor electrolytes, albumin, and nutritional markers daily. Prophylaxis * Stress ulcer prophylaxis: Continue IV Pantoprazole. We will continue to monitor the patient. Case discussed in detail with the attending physician, including the clinical presentation, diagnostic workup, and comprehensive management plan. Plan discussed with: Other (RN) Dietary Evaluation Review Comments: 1. TF: Vital AF@50ml/hr (90g protein, 1440kcal 973 free water) meeting Protein needs 83%, energy needs 80%. 2. TPN per pharmacy meeting 75% of his needs if TF not feasible or NPO>7 days. 3. Diet as tolerated per TIMBER INSPECTOR bryon when off Vent Expected Outcomes/Goals: Preventing catabolism SOPHIE LANDEROS RESIDENT Feb 05, 2025 16:50
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
[2025-02-05] MEDS: FUROSEMIDE 40 MG/4 ML VIAL IV ONE (18:30)
[2025-02-05] MEDS: OLANZapine 5 MG TAB PO SCH (21:12)
[2025-02-06] VITALS (114 sets, daily range): BP systolic 80–132; BP diastolic 48–81; PULSE 87–132; RESP 13–51; TEMP 98.7–100.5; O2SAT 86–100
[2025-02-06 03:38] LABS: Hemoglobin 9.3 g/dL (13.5-17.5); Mean Corpuscular Volume 83.0 fL (80.0-100.0); Nucleated Red Blood Cells % 0.0 %
[2025-02-06 03:41] LABS: Hematocrit 27.2 % (41.0-53.0); Mean Corpuscular Hemoglobin 28.5 pg (28.0-32.0)
[2025-02-06 03:52] LABS: Alkaline Phosphatase 85 U/L (46-116); Anion Gap 13 (5-15); BUN/Creatinine Ratio 13.2 (10.0-20.0); Calcium 9.5 mg/dL (8.7-10.4); Carbon Dioxide 29 mmol/L (20-31); Magnesium 1.7 mg/dL (1.6-2.6); Sodium 136 mmol/L (136-145); Total Protein 7.6 g/dL (5.7-8.2)
[2025-02-06 03:53] LABS: Albumin 4.0 g/dL (3.2-4.8); Bilirubin, Total 0.3 mg/dL (0.2-1.0)
[2025-02-06 03:56] LABS: Alanine Aminotransferase 9 U/L (7-40); Blood Urea Nitrogen 7 mg/dL (9-23); Chloride 94 mmol/L (98-107); Glucose 112 mg/dL (74-106); Potassium 3.2 mmol/L (3.5-5.1)
--- NOTE | 2025-02-06 04:38 | DVH ---
CHEST RADIOGRAPH Indication: b/l congesiton Technique: Single frontal view of the chest was obtained Comparison: XY CHEST XRAY 1 VIEW on DOS: 02/05/25, XY CHEST PORTABLE on DOS: 02/04/25, XY CHEST XRAY 1 VIEW on DOS: 02/02/25, XY CHEST XRAY 1 VIEW on DOS: 02/01/25, XY CHEST XRAY 1 VIEW on DOS: 01/31/25 FINDINGS: Lines and Tubes: Tracheostomy tube noted Lungs: Scattered diffuse opacities likely reflective of extensive pulmonary edema. Underlying focal consolidation is not excluded. Pleura: No effusion. No pneumothorax. Cardiomediastinal contours: Unremarkable Bones: No acute osseous abnormality. IMPRESSION: 1. Scattered diffuse opacities likely reflective of extensive pulmonary edema. Underlying focal cons olidation is not excluded.
[2025-02-06] MEDS: POTASSIUM CHL 20MEQ/100ML 100 ML IV SCH (05:58)
[2025-02-06] MEDS ORDERED: POTASSIUM CHL 20MEQ/100ML 100 ML IV SCH (07:15)
[2025-02-06] MEDS: MAGNESIUM SULFATE 1GM/100ML 100 ML IV ONE (08:00)
[2025-02-06 09:43] LABS: Base Excess 4.4 mmol/L (-2.0-3.0)
[2025-02-06] MEDS: fentaNYL 50MCG/HR 50 MCG/HR PAT TD SCH (10:00)
[2025-02-06] MEDS: POTASSIUM CHL 20MEQ/100ML 100 ML IV ONE (10:11)
--- NOTE | 2025-02-06 10:27 | DVH ---
Bilateral Upper Extremity Venous Duplex Clinical History: previoud DVT in R upper ext Comparison: US LT UPPER DVT on DOS: 01/01/25 Findings: Duplex Doppler evaluation of the venous systems of the right and left lower neck and upper extremitie s including color Doppler and spectral/pulsed waveform analysis was performed. RIGHT SIDE: Thrombus within the right internal jugular vein, subclavian vein, axillary vein. Right cephalic vein, brachial vein, basilic vein, radial vein, ulnar vein are patent. LEFT SIDE: The internal jugular vein demonstrates appropriate compressibility and waveform variability. The subclavian vein is patent on color Doppler evaluation without intraluminal thrombus and demonstra demetrio waveform variability. The visualized portion of the brachiocephalic vein is patent on color Doppler evaluation without intr aluminal thrombus and demonstrates waveform variability. The axillary vein demonstrates appropriate compressibility and waveform variability. The brachial veins demonstrate appropriate compressibility and patency on Doppler evaluation. The basilic vein demonstrates appropriate compressibility and patency on Doppler evaluation. Thrombus in the left cephalic vein. Impression: Right upper extremity DVT. Cephalic vein thrombus. If clinical concern/symptoms persist or worsen, short-interval follow-up study is suggested. Critical Result: DVT Findings discussed with Damon Negron at 02/06/2025 10:24 AM, and acknowledged receipt and underst anding of the findings. ..
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
[2025-02-06] MEDS: IPRATROPIUM BROM 0.5 MG/2.5ML INH SOL NEB SCH (12:48)
[2025-02-06] MEDS: ACETYLCYSTEINE 20%(200MG/ML) SOL 4ML NEB SCH (12:49)
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
[2025-02-06] MEDS: LEVALBUTEROL HCL 1.25 MG/3 ML NEB NEB SCH (18:18)
[2025-02-06] MEDS: FUROSEMIDE 40 MG/4 ML VIAL IV ONE (20:10)
[2025-02-06] MEDS: levETIRAcetam 500 MG TAB PO SCH (21:37)
[2025-02-06] MEDS: ENOXAPARIN SOD 80 MG/0.8ML SYRINGE SC SCH (21:39)
[2025-02-07] VITALS (101 sets, daily range): BP systolic 76–139; BP diastolic 35–79; PULSE 91–135; RESP 14–45; TEMP 98.5–99.8; O2SAT 90–100
[2025-02-07 03:24] LABS: Hematocrit 26.6 % (41.0-53.0); Hemoglobin 8.7 g/dL (13.5-17.5); Mean Corpuscular Hemoglobin 27.3 pg (28.0-32.0); Mean Corpuscular Volume 82.8 fL (80.0-100.0); Nucleated Red Blood Cells % 0.0 %
[2025-02-07 03:37] LABS: Sodium 137 mmol/L (136-145)
[2025-02-07 03:38] LABS: Anion Gap 12 (5-15); Calcium 9.2 mg/dL (8.7-10.4); Carbon Dioxide 29 mmol/L (20-31)
[2025-02-07 03:43] LABS: BUN/Creatinine Ratio 16.9 (10.0-20.0); Blood Urea Nitrogen 10 mg/dL (9-23)
[2025-02-07 03:44] LABS: Magnesium 1.7 mg/dL (1.6-2.6)
[2025-02-07 04:20] LABS: Chloride 96 mmol/L (98-107); Glucose 122 mg/dL (74-106); Potassium 3.4 mmol/L (3.5-5.1)
--- NOTE | 2025-02-07 05:47 | DVH ---
CHEST RADIOGRAPH Indication: b/l congestion Technique: Single frontal view of the chest was obtained COMPARISON: XY CHEST XRAY 1 VIEW on DOS: 02/06/25, XY CHEST XRAY 1 VIEW on DOS: 02/05/25, XY CHEST PORT ABLE on DOS: 02/04/25, XY CHEST XRAY 1 VIEW on DOS: 02/02/25, XY CHEST XRAY 1 VIEW on DOS: 02/01/25 FINDINGS: Lines and Tubes: Unchanged. Lungs: Grossly stable appearing mildly consolidative patchy right hemithoracic pulmonary airspace dis ease. Pleura: No effusion. No pneumothorax. Cardiomediastinal contours: Unremarkable Bones: Unremarkable IMPRESSION: 1. Stable appearing mildly consolidative patchy right hemithoracic pulmonary airspace disease. 2. Lines and tubes unchanged.
[2025-02-07] MEDS: POTASSIUM CHL 20MEQ/100ML 100 ML IV SCH (06:21)
[2025-02-07 06:29] LABS: Base Excess 4.9 mmol/L (-2.0-3.0)
[2025-02-07] MEDS: MEROPENEM 1GM IVPB 50 ML IV ONE (08:00)
[2025-02-07] MEDS: MAGNESIUM SULFATE 1GM/100ML 100 ML IV SCH (08:45)
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
[2025-02-07] MEDS: POTASSIUM CHL 20MEQ/100ML 100 ML IV ONE (12:17)
[2025-02-07] MEDS: MEROPENEM 1GM IVPB 50 ML IV SCH (14:42)
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
[2025-02-07] MEDS: FUROSEMIDE 40 MG/4 ML VIAL IV ONE (18:25)
--- NOTE | 2025-02-07 18:33 | DVHPN2 ---
Progress Note Date Seen: Feb 07, 2025 Resident Creating Document: SOPHIE LANDEROS RESIDENT Has the PT tested + for MRSA If YES, has PT been informed?: No Medical Necessity Reason Pt with a Central, PICC or Fol: Yes The following are medically ne: Navarrete Catheter Reason for navarrete catheter: Strict I&O Subjective Review of Systems Patient seen and examined at the bedside. Patient was transitioned from mechanical ventilator to T-piece and no respiratory distress was noted. Patient did not have any fever overnight. He is pending LTAC placement but remains admitted for ongoing care. MRA of head and neck is being performed today to evaluate for flaccid extremities and generalized weakness. From GI standpoint the patient continues to receive bolus NG tube feeds. Colostomy output was documented as 35 mL today. No episode of abdominal distention, nausea or vomiting reported. No overt GI bleeding noted. Objective vital signs Vital Sign Date Time Temp Pulse Resp B/P (MAP) Pulse Ox O2 Delivery O2 Flow Rate FiO2 02/07/25 18:25 119/68 02/07/25 16:00 30 02/07/25 16:00 98.9 108 19 98 98.9 02/07/25 16:00 T-piece 10 Total Intake and Output 02/06/25 02/06/25 02/07/25 15:00 23:00 07:00 Intake Total 665.925 ml 664.417 ml 521.150 ml Output Total 1900 ml 810 ml Balance 665.925 ml -1235.583 ml -288.850 ml medications Current Medications Medications Dose Ordered Sig/Sherron Route Start Time Stop Time Status Last Admin Dose Admin Pantoprazole Sodium 40 mg DAILY IV 12/18/24 10:00 02/07/25 10:02 40 MG Midazolam HCl 50 ml @ 1 mls/hr Q24H IV 12/17/24 17:00 02/04/25 00:35 5 MLS/HR Valproate Sodium 250 mg/Sodium Chloride 52.5 ml @ 52.5 mls/hr BID IV 12/17/24 22:00 02/07/25 10:06 52.5 MLS/HR Propofol 100 ml @ 2.37 mls/hr Q24H IV 12/17/24 18:15 02/05/25 01:33 14.22 MLS/HR Sodium Chloride 40 meq/Potassium Chloride 40 meq/ Potassium Phosphate 11 meq/ Calcium Gluconate 2.3 meq/Magnesium Sulfate 8 meq/ Multivitamins 10 ml/Chromium/ Copper/Manganese/ Zinc 1 ml/Amino Acids/Dextrose/ Purified Water 1,450.4462 ml @ 60 mls/hr [id number] IV 12/26/24 22:00 12/27/24 21:59 Cancel Sodium Chloride 10 ml QSHIFT@10,22 IV 12/27/24 22:00 02/07/25 10:04 10 ML Artificial Tears 1 drop Q6HP PRN EACHEYE 12/29/24 23:45 01/06/25 09:00 1 DROP Ketamine HCl 50 mg [id number] PRN IV 01/04/25 15:00 01/05/25 07:00 Cancel Sodium Chloride 120 meq/Potassium Chloride 50 meq/ Potassium Acetate 50 meq/Calcium Gluconate 4.65 meq/Magnesium Sulfate 34 meq/ Multivitamins 10 ml/Chromium/ Copper/Manganese/ Zinc 1 ml/Amino Acids/Dextrose/ Purified Water 1,659.5 ml @ 68.108 mls/hr [id number] IV 01/09/25 22:00 01/10/25 21:59 Cancel Sodium Chloride 100 meq/Potassium Chloride 50 meq/ Calcium Gluconate 4.65 meq/ Magnesium Sulfate 34 meq/ Multivitamins 10 ml/Chromium/ Copper/Manganese/ Zinc 1 ml/Sodium Phosphate 20 meq/ Potassium Acetate 50 meq/Amino Acids/Dextrose/ Purified Water 1,659.5 ml @ 68.537 mls/hr [id number] IV 01/09/25 09:30 01/09/25 21:59 Cancel Linezolid 300 ml @ 150 mls/hr Q12H IV 01/11/25 23:00 02/07/25 12:30 150 MLS/HR Fentanyl Citrate 250 ml @ 2.5 mls/hr Q24H IV 01/14/25 12:45 02/07/25 00:54 12.5 MLS/HR Thiamine HCl 100 mg DAILY IV 01/20/25 10:00 02/07/25 10:02 100 MG Folic Acid 1 mg DAILY PO 01/20/25 10:00 02/07/25 10:04 1 MG Acetaminophen 650 mg Q6HP PRN GT 01/22/25 10:15 02/05/25 09:54 650 MG Micafungin Sodium 100 mg/Sodium Chloride 100 ml @ 100 mls/hr DAILY IV 01/23/25 10:00 02/07/25 10:04 100 MLS/HR Enteral Nutritional Formula 1,000 ml 50ML/HR GT 01/23/25 13:00 02/05/25 22:22 1,000 ML Furosemide 40 mg DAILY IV 01/25/25 10:00 02/07/25 10:04 40 MG Mupirocin 1 applic BID EACHNOSTRI 01/27/25 22:00 02/01/25 21:59 UNV Norepinephrine Bitartrate 250 ml @ 0.938 mls/ hr Q24H IV 01/30/25 19:15 02/05/25 22:48 0.938 MLS/HR Diphenhydramine HCl 25 mg Q6HP PRN IV 01/30/25 19:45 02/03/25 10:12 25 MG Acetylcysteine 200 mg Q6HR NEB 02/06/25 12:00 02/07/25 18:09 200 MG Ipratropium [place] 0.5 mg Q6HR NEB 02/06/25 12:00 02/07/25 18:08 0.5 MG Fentanyl 50 mcg Q72H TD 02/06/25 10:00 02/06/25 10:00 50 MCG Lorazepam 1 mg ONCE PRN IV 02/06/25 10:45 Levalbuterol HCl 1.25 mg Q6HR NEB 02/06/25 18:00 02/07/25 18:08 1.25 MG Levetiracetam 500 mg BID PO 02/06/25 22:00 02/07/25 10:04 500 MG Enoxaparin Sodium 70 mg Q12HR SC 02/06/25 22:00 02/07/25 10:05 70 MG Meropenem 50 ml @ 17 mls/hr Q8HR IV 02/07/25 14:00 02/07/25 14:42 17 MLS/HR Chlordiazepoxide HCl 25 mg QID PO 02/07/25 12:00 02/07/25 18:25 25 MG Olanzapine 10 mg DAILY PO 02/08/25 10:00 Examination Gen - no pallor, no icterus, no cyanosis, right upper extremity edema GI - soft abdomen. Midline incision with a wound VAC. Right upper quadrant colostomy, left upper quadrant mucous fistula, SHIRLENE drains on left and right draining minimal . Bowel sounds normoactive laboratory and microbiology Laboratory Tests 02/07/25 17:17 02/07/25 02:48 Test 02/07/25 02:48 Range/Units Serum Glucose 122 H 74-106 mg/dL Microbiology Date/Time Source Procedure Growth Status 01/22/25 18:44 Blood Blood Culture - Final NO GROWTH AFTER 5 DAYS OF INCUBATION. Complete 01/18/25 14:15 Urine - Navarrete Port Urine Culture - Final Complete 01/18/25 10:40 Sputum Gram Stain - Final Complete 01/18/25 10:40 Sputum Respiratory Culture - Final Complete 01/05/25 08:15 Other Abscess Gram Stain - Final Complete 01/05/25 08:15 Other Abscess Anaerobic Culture - Final Complete 01/05/25 08:15 Aerobic Culture - Final Enterococcus faecium - VRE Complete 01/05/25 08:02 Peritoneal Fluid Gram Stain - Final Complete 01/05/25 08:02 Peritoneal Fluid Anaerobic Culture - Final Complete 01/05/25 08:02 Aerobic Culture - Final Enterococcus faecium - VRE Citrobacter freundii Vanc Resistant Enterococcus Complete Problem List/Assessment/Plan Problem List/Assessment/Plan Assessment 1. Postoperative status after laparotomy with colostomy and abscess drainage stable, signs of return of bowel function. 2. Enteral nutrition initiation (trickle feeds) tolerated with modest residuals; no signs of feeding intolerance or obstruction. 3. NG bile output expected in the context of early enteral feeding; continue monitoring for changes. 4. Colostomy function output stable, no ischemia or obstruction. 5. Sepsis from VRE/Citrobacter peritonitis improving on antibiotics. 6. TPN dependence continuing alongside trickle feeds. Treatment Plan Requires ongoing NG tube feeding management, colostomy care The patient is being discharged and transferred to LTAC care for long-term care management Clinically patient appears stable from a GI point of view Schedule swallow evaluation in 1-2 days to assess readiness for oral intake once completely extubated Continue supportive care, continue tube feedings as tolerated Wound care Gastrointestinal * Continue NG TUBE Feeds at 50mL/hr, reassess tolerance (residuals, abdominal exam) q12h. * Continue Reglan IV q8h to aid GI motility. * Monitor colostomy output for volume, consistency, and viability. * Continue wound VAC care. Infectious Disease * Continue ANTIBIOTICS * Monitor cultures, WBC count, and temperature trends. Nutrition * Continue enteral feeds as tolerated. * Monitor electrolytes, albumin, and nutritional markers daily. Prophylaxis * Stress ulcer prophylaxis: Continue IV Pantoprazole. We will continue to monitor the patient. Case discussed in detail with the attending physician, including the clinical presentation, diagnostic workup, and comprehensive management plan. Plan discussed with: Other (RN) Dietary Evaluation Review Comments: 1. TF: Vital AF@50ml/hr (90g protein, 1440kcal 973 free water) meeting Protein needs 83%, energy needs 80%. 2. TPN per pharmacy meeting 75% of his needs if TF not feasible or NPO>7 days. 3. Diet as tolerated per [employer] evvilma when off Vent Expected Outcomes/Goals: Preventing catabolism SOPHIE LANDEROS RESIDENT Feb 07, 2025 18:33
[2025-02-08] VITALS (97 sets, daily range): BP systolic 83–124; BP diastolic 40–87; PULSE 83–116; RESP 13–47; TEMP 98.4–99.4; O2SAT 88–100
[2025-02-08 03:53] LABS: Alanine Aminotransferase 12 U/L (7-40); Alkaline Phosphatase 83 U/L (46-116); Anion Gap 11 (5-15); BUN/Creatinine Ratio 12.7 (10.0-20.0); Blood Urea Nitrogen 8 mg/dL (9-23); Calcium 9.4 mg/dL (8.7-10.4); Carbon Dioxide 29 mmol/L (20-31); Chloride 98 mmol/L (98-107); Glucose 112 mg/dL (74-106); Potassium 3.8 mmol/L (3.5-5.1); Sodium 138 mmol/L (136-145)
[2025-02-08 03:54] LABS: Albumin 3.9 g/dL (3.2-4.8); Magnesium 1.9 mg/dL (1.6-2.6); Total Protein 7.4 g/dL (5.7-8.2)
[2025-02-08 03:55] LABS: Bilirubin, Total 0.3 mg/dL (0.2-1.0)
[2025-02-08 03:58] LABS: Hematocrit 26.4 % (41.0-53.0); Hemoglobin 8.8 g/dL (13.5-17.5); Mean Corpuscular Hemoglobin 27.7 pg (28.0-32.0)
[2025-02-08 04:00] LABS: Mean Corpuscular Volume 83.4 fL (80.0-100.0); Nucleated Red Blood Cells % 0.1 %
--- NOTE | 2025-02-08 05:46 | DVH ---
CHEST RADIOGRAPH Indication: right rales Technique: Single frontal view of the chest was obtained COMPARISON: XY CHEST XRAY 1 VIEW on DOS: 02/07/25, XY CHEST XRAY 1 VIEW on DOS: 02/06/25, XY CHEST XRAY 1 VIEW on DOS: 02/05/25, XY CHEST PORTABLE on DOS: 02/04/25, XY CHEST XRAY 1 VIEW on DOS: 02/02/25 FINDINGS: Lines and Tubes: Unchanged. Lungs: Grossly stable appearing mildly consolidative diffuse patchy right hemithoracic and left basil ar pulmonary infiltrate. Small right pleural effusion. No pneumothorax. Cardiomediastinal contours: Cardiomegaly. Bones: Unremarkable IMPRESSION: 1. Stable appearing consolidative diffuse patchy right hemithoracic and left basilar pulmonary infilt rate. 2. Small right pleural effusion. 3. Cardiomegaly. 4. Lines and tubes unchanged.
[2025-02-08] MEDS: OLANZapine 5 MG TAB PO SCH (08:41)
[2025-02-08] MEDS: fentaNYL 75MCG/HR 75 MCG/HR PAT TD SCH (11:00)
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
--- NOTE | 2025-02-08 15:26 | DVHPN2 ---
Progress Note Date Seen: Feb 08, 2025 Resident Creating Document: SOPHIE LANDEROS RESIDENT Has the PT tested + for MRSA If YES, has PT been informed?: No Medical Necessity Reason Pt with a Central, PICC or Fol: Yes The following are medically ne: Navarrete Catheter Reason for navarrete catheter: Strict I&O Subjective Review of Systems Patient seen and examined at the bedside. Patient was transitioned from mechanical ventilator to T-piece and no respiratory distress was noted. Patient did not have any fever overnight. He is pending LTAC placement but remains admitted for ongoing care. MRI of head and neck is being performed to evaluate for flaccid extremities and generalized weakness. From GI standpoint the patient is started back on continue NG tube feeds. Colostomy output was documented as 25 mL today. No episode of abdominal distention, nausea or vomiting reported. Objective vital signs Vital Sign Date Time Temp Pulse Resp B/P (MAP) Pulse Ox O2 Delivery O2 Flow Rate FiO2 02/08/25 14:00 86 27 91/49 (63) 100 02/08/25 14:00 40 02/08/25 14:00 T-piece 10 02/08/25 12:30 98.5 98.5 Total Intake and Output 02/07/25 02/07/25 02/08/25 15:00 23:00 07:00 Intake Total 598.51 ml 704.41 ml 151.94 ml Output Total 1950 ml 875 ml Balance 598.51 ml -1245.59 ml -723.06 ml medications Current Medications Medications Dose Ordered Sig/Sherron Route Start Time Stop Time Status Last Admin Dose Admin Pantoprazole Sodium 40 mg DAILY IV 12/18/24 10:00 02/08/25 08:39 40 MG Midazolam HCl 50 ml @ 1 mls/hr Q24H IV 12/17/24 17:00 02/04/25 00:35 5 MLS/HR Valproate Sodium 250 mg/Sodium Chloride 52.5 ml @ 52.5 mls/hr BID IV 12/17/24 22:00 02/08/25 08:39 52.5 MLS/HR Propofol 100 ml @ 2.37 mls/hr Q24H IV 12/17/24 18:15 02/05/25 01:33 14.22 MLS/HR Sodium Chloride 40 meq/Potassium Chloride 40 meq/ Potassium Phosphate 11 meq/ Calcium Gluconate 2.3 meq/Magnesium Sulfate 8 meq/ Multivitamins 10 ml/Chromium/ Copper/Manganese/ Zinc 1 ml/Amino Acids/Dextrose/ Purified Water 1,450.4462 ml @ 60 mls/hr [id number] IV 12/26/24 22:00 12/27/24 21:59 Cancel Sodium Chloride 10 ml QSHIFT@10,22 IV 12/27/24 22:00 02/08/25 10:00 10 ML Artificial Tears 1 drop Q6HP PRN EACHEYE 12/29/24 23:45 01/06/25 09:00 1 DROP Ketamine HCl 50 mg [id number] PRN IV 01/04/25 15:00 01/05/25 07:00 Cancel Sodium Chloride 120 meq/Potassium Chloride 50 meq/ Potassium Acetate 50 meq/Calcium Gluconate 4.65 meq/Magnesium Sulfate 34 meq/ Multivitamins 10 ml/Chromium/ Copper/Manganese/ Zinc 1 ml/Amino Acids/Dextrose/ Purified Water 1,659.5 ml @ 68.108 mls/hr [id number] IV 01/09/25 22:00 01/10/25 21:59 Cancel Sodium Chloride 100 meq/Potassium Chloride 50 meq/ Calcium Gluconate 4.65 meq/ Magnesium Sulfate 34 meq/ Multivitamins 10 ml/Chromium/ Copper/Manganese/ Zinc 1 ml/Sodium Phosphate 20 meq/ Potassium Acetate 50 meq/Amino Acids/Dextrose/ Purified Water 1,659.5 ml @ 68.537 mls/hr [id number] IV 01/09/25 09:30 01/09/25 21:59 Cancel Linezolid 300 ml @ 150 mls/hr Q12H IV 01/11/25 23:00 02/08/25 10:54 150 MLS/HR Fentanyl Citrate 250 ml @ 2.5 mls/hr Q24H IV 01/14/25 12:45 02/07/25 00:54 12.5 MLS/HR Thiamine HCl 100 mg DAILY IV 01/20/25 10:00 02/08/25 08:39 100 MG Folic Acid 1 mg DAILY PO 01/20/25 10:00 02/08/25 08:41 1 MG Acetaminophen 650 mg Q6HP PRN GT 01/22/25 10:15 02/05/25 09:54 650 MG Micafungin Sodium 100 mg/Sodium Chloride 100 ml @ 100 mls/hr DAILY IV 01/23/25 10:00 02/08/25 10:54 100 MLS/HR Enteral Nutritional Formula 1,000 ml 50ML/HR GT 01/23/25 13:00 02/08/25 13:59 1,000 ML Furosemide 40 mg DAILY IV 01/25/25 10:00 02/08/25 08:40 40 MG Mupirocin 1 applic BID EACHNOSTRI 01/27/25 22:00 02/01/25 21:59 UNV Norepinephrine Bitartrate 250 ml @ 0.938 mls/ hr Q24H IV 01/30/25 19:15 02/05/25 22:48 0.938 MLS/HR Diphenhydramine HCl 25 mg Q6HP PRN IV 01/30/25 19:45 02/03/25 10:12 25 MG Acetylcysteine 200 mg Q6HR NEB 02/06/25 12:00 02/08/25 11:57 200 MG Ipratropium [place] 0.5 mg Q6HR NEB 02/06/25 12:00 02/08/25 11:57 0.5 MG Lorazepam 1 mg ONCE PRN IV 02/06/25 10:45 Levalbuterol HCl 1.25 mg Q6HR NEB 02/06/25 18:00 02/08/25 11:57 1.25 MG Levetiracetam 500 mg BID PO 02/06/25 22:00 02/08/25 08:41 500 MG Enoxaparin Sodium 70 mg Q12HR SC 02/06/25 22:00 02/08/25 08:40 70 MG Meropenem 50 ml @ 17 mls/hr Q8HR IV 02/07/25 14:00 02/08/25 13:53 17 MLS/HR Chlordiazepoxide HCl 25 mg QID PO 02/07/25 12:00 02/08/25 12:19 25 MG Olanzapine 10 mg DAILY PO 02/08/25 10:00 02/08/25 08:41 10 MG Fentanyl 75 mcg Q72H TD 02/08/25 08:15 02/08/25 11:00 75 MCG Examination Neurological: Patient is alert and oriented to person, place, use signboard to communicate Gen - no pallor, no icterus, no cyanosis, no edema GI - soft abdomen. Midline incision with a wound VAC. Right upper quadrant colostomy, left upper quadrant mucous fistula. Bowel sounds normoactive laboratory and microbiology Laboratory Tests 02/08/25 03:00 Test 02/08/25 03:00 Range/Units Serum Glucose 112 H 74-106 mg/dL Microbiology Date/Time Source Procedure Growth Status 02/07/25 02:15 Urine - Navarrete Port Urine Culture - Preliminary Resulted 01/22/25 18:44 Blood Blood Culture - Final NO GROWTH AFTER 5 DAYS OF INCUBATION. Complete 01/18/25 10:40 Sputum Gram Stain - Final Complete 01/18/25 10:40 Sputum Respiratory Culture - Final Complete 01/05/25 08:15 Other Abscess Gram Stain - Final Complete 01/05/25 08:15 Other Abscess Anaerobic Culture - Final Complete 01/05/25 08:15 Aerobic Culture - Final Enterococcus faecium - VRE Complete 01/05/25 08:02 Peritoneal Fluid Gram Stain - Final Complete 01/05/25 08:02 Peritoneal Fluid Anaerobic Culture - Final Complete 01/05/25 08:02 Aerobic Culture - Final Enterococcus faecium - VRE Citrobacter freundii Vanc Resistant Enterococcus Complete Problem List/Assessment/Plan Problem List/Assessment/Plan Assessment 1. Postoperative status after laparotomy with colostomy and abscess drainage stable, signs of return of bowel function. 2. Enteral nutrition initiation (trickle feeds) tolerated with modest residuals; no signs of feeding intolerance or obstruction. 3. NG bile output expected in the context of early enteral feeding; continue monitoring for changes. 4. Colostomy function output stable, no ischemia or obstruction. 5. Sepsis from VRE/Citrobacter peritonitis improving on antibiotics. 6. TPN dependence continuing alongside trickle feeds. Treatment Plan Requires ongoing NG tube feeding management, colostomy care The patient is being discharged and transferred to LTAC care for long-term care management Clinically patient appears stable from a GI point of view Schedule swallow evaluation in 1-2 days to assess readiness for oral intake once completely extubated Continue supportive care, continue tube feedings as tolerated Wound care Gastrointestinal * Continue NG TUBE Feeds at 50mL/hr, reassess tolerance (residuals, abdominal exam) q12h. * Continue Reglan IV q8h to aid GI motility. * Monitor colostomy output for volume, consistency, and viability. * Continue wound VAC care. Infectious Disease * Continue ANTIBIOTICS * Monitor cultures, WBC count, and temperature trends. Nutrition * Continue enteral feeds as tolerated. * Monitor electrolytes, albumin, and nutritional markers daily. Prophylaxis * Stress ulcer prophylaxis: Continue IV Pantoprazole. We will continue to monitor the patient. Case discussed in detail with the attending physician, including the clinical presentation, diagnostic workup, and comprehensive management plan. Plan discussed with: Other (RN) Dietary Evaluation Review Comments: 1. TF: Vital AF@50ml/hr (90g protein, 1440kcal 973 free water) meeting Protein needs 83%, energy needs 80%. 2. TPN per pharmacy meeting 75% of his needs if TF not feasible or NPO>7 days. 3. Diet as tolerated per RECORD SYSTEMS ANALYST evvilma when off Vent Expected Outcomes/Goals: Preventing catabolism SOPHIE LANDEROS RESIDENT Feb 08, 2025 15:26
--- NOTE | 2025-02-08 17:20 | DVH ---
CHEST RADIOGRAPH Indication: VERIFY NGT PLACEMENT Technique: Single frontal view of the chest was obtained COMPARISON: XY CHEST XRAY 1 VIEW on DOS: 02/08/25, XY CHEST XRAY 1 VIEW on DOS: 02/07/25, XY CHEST XRAY 1 VIEW on DOS: 02/06/25, XY CHEST XRAY 1 VIEW on DOS: 02/05/25, XY CHEST PORTABLE on DOS: 02/04/25 FINDINGS: Lines and Tubes: Tracheostomy and enteric catheter in satisfactory position Lungs: Congestion Pleura: No effusion. No pneumothorax. Cardiomediastinal contours: Unremarkable Bones: Unremarkable IMPRESSION: Lines and tubes in satisfactory position. No significant interval change.
[2025-02-08] MEDS: POTASSIUM CHL 20MEQ/100ML 100 ML IV ONE (18:47)
[2025-02-08] MEDS: MAGNESIUM SULFATE 1GM/100ML 100 ML IV ONE (18:47)
[2025-02-08] MEDS: FUROSEMIDE 40 MG/4 ML VIAL IV ONE (18:48)
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
[2025-02-09] VITALS (105 sets, daily range): BP systolic 84–129; BP diastolic 40–92; PULSE 77–121; RESP 13–41; TEMP 89.9–99; O2SAT 88–100
--- NOTE | 2025-02-09 05:43 | DVH ---
CHEST RADIOGRAPH Indication: right congestion, improved Technique: 1 view Comparison: XY CHEST PORTABLE on DOS: 02/08/25, XY CHEST XRAY 1 VIEW on DOS: 02/08/25, XY CHEST XRAY 1 VIEW on DOS: 02/07/25, XY CHEST XRAY 1 VIEW on DOS: 02/06/25, XY CHEST XRAY 1 VIEW on DOS: 02/05/25 FINDINGS: Lines and Tubes: Unchanged tracheostomy and enteric tubes. Lungs: Unchanged. Pleura: Unchanged. Cardiomediastinal contours: Unchanged. Other: Unchanged. IMPRESSION: 1. No significant change from the previous study. [id number]-left mixed pulmonary opacities. No large pleural effusion. Stable support devices.
[2025-02-09 06:08] LABS: Hematocrit 27.3 % (41.0-53.0); Nucleated Red Blood Cells % 0.0 %
[2025-02-09 06:10] LABS: Hemoglobin 9.2 g/dL (13.5-17.5); Mean Corpuscular Hemoglobin 27.9 pg (28.0-32.0); Mean Corpuscular Volume 83.3 fL (80.0-100.0)
[2025-02-09 06:19] LABS: Chloride 99 mmol/L (98-107); Potassium 3.7 mmol/L (3.5-5.1); Sodium 139 mmol/L (136-145)
[2025-02-09 06:20] LABS: Anion Gap 9 (5-15)
[2025-02-09 06:21] LABS: Calcium 9.5 mg/dL (8.7-10.4); Carbon Dioxide 31 mmol/L (20-31)
[2025-02-09 06:25] LABS: BUN/Creatinine Ratio 16.7 (10.0-20.0); Blood Urea Nitrogen 10 mg/dL (9-23); Glucose 106 mg/dL (74-106)
[2025-02-09 06:26] LABS: Magnesium 1.8 mg/dL (1.6-2.6)
[2025-02-09 07:47] LABS: Base Excess 4.8 mmol/L (-2.0-3.0)
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
--- NOTE | 2025-02-09 16:52 | DVH ---
CHEST RADIOGRAPH Indication: NEW NGT. VERIFY PLACEMENT Technique: Single frontal view of the chest was obtained COMPARISON: XY CHEST XRAY 1 VIEW on DOS: 02/09/25, XY CHEST PORTABLE on DOS: 02/08/25, XY CHEST XRAY 1 VIEW on DOS: 02/08/25, XY CHEST XRAY 1 VIEW on DOS: 02/07/25, XY CHEST XRAY 1 VIEW on DOS: 02/06/25 FINDINGS: Lines and Tubes: Tracheostomy and enteric catheter in satisfactory position Lungs: Congestion Pleura: No effusion. No pneumothorax. Cardiomediastinal contours: Cardiomegaly Bones: Unremarkable IMPRESSION: Tracheostomy and enteric catheter in satisfactory position.
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
--- NOTE | 2025-02-09 21:38 | DVH ---
CHEST RADIOGRAPH Indication: NG Tube placement Technique: Single frontal view of the chest was obtained Comparison: XY CHEST PORTABLE on DOS: 02/09/25, XY CHEST XRAY 1 VIEW on DOS: 02/09/25, XY CHEST PORTABL E on DOS: 02/08/25 FINDINGS: Lines and Tubes: Tracheostomy tube and enteric tube are in satisfactory position. Lungs: Elevated right hemidiaphragm with hazy opacification of the right upper and mid lung zone and mild interstitial prominence. Pleura: No effusion. No pneumothorax. Cardiomediastinal contours: Unremarkable Bones: No acute osseous abnormality. IMPRESSION: Tracheostomy tube and enteric tube are in satisfactory position. Diffuse interstitial prominence with hazy opacification of the right mid and lower lung zone which ma y represent pneumonia/ interstitial pneumonitis/ pulmonary edema.
[2025-02-10] VITALS (103 sets, daily range): BP systolic 84–145; BP diastolic 33–96; PULSE 72–106; RESP 14–36; TEMP 97.7–98.8; O2SAT 89–100
[2025-02-10 03:56] LABS: Hemoglobin 9.5 g/dL (13.5-17.5); Mean Corpuscular Hemoglobin 28.0 pg (28.0-32.0); Mean Corpuscular Volume 84.0 fL (80.0-100.0)
[2025-02-10 03:59] LABS: Hematocrit 28.6 % (41.0-53.0); Nucleated Red Blood Cells % 0.3 %
[2025-02-10 04:00] LABS: Anion Gap 14 (5-15); Calcium 9.7 mg/dL (8.7-10.4); Carbon Dioxide 29 mmol/L (20-31); Chloride 98 mmol/L (98-107); Sodium 141 mmol/L (136-145)
[2025-02-10 04:04] LABS: Potassium 3.2 mmol/L (3.5-5.1)
[2025-02-10 04:06] LABS: BUN/Creatinine Ratio 20.0 (10.0-20.0); Blood Urea Nitrogen 12 mg/dL (9-23); Glucose 102 mg/dL (74-106)
[2025-02-10 04:07] LABS: Magnesium 1.7 mg/dL (1.6-2.6)
[2025-02-10] MEDS: POTASSIUM CHL 20MEQ/100ML 100 ML IV SCH (05:32)
--- NOTE | 2025-02-10 11:48 | DVH ---
CLINICAL INFORMATION: 44 years old, Male; CVA. TECHNIQUE: Axial imaging was obtained through the brain without contrast. Coronal and sagittal reform atted images were obtained, reviewed, and stored. Images were reviewed in brain and bone windows. Al l CT scans at this medical facility are performed using dose modulation techniques as appropriate to a performed exam including the following: Automated exposure control was utilized; adjustment of the MA and/or KV according to patient size; and use of iterative reconstruction technique. CTDIvol = 58.5 7 mGy DLP = 1269.77 mGy-cm COMPARISON: Prior CT head dated 08/16/2023. FINDINGS: There is no acute intracranial hemorrhage. No mass effect or midline shift. The ventricles and sulci are within normal limits in size for age. Basal cisterns are patent. The calvarium is unre markable. Scattered areas of mucosal thickening and partial opacification in the paranasal sinuses. P artially visualized nasogastric tube. IMPRESSION: 1. No CT evidence of acute intracranial abnormality. 2. Nonacute findings as described above.
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
[2025-02-10] MEDS: HYDROcodone-ACET 5/325MG TAB PO PRN (14:02)
[2025-02-11] VITALS (76 sets, daily range): BP systolic 82–158; BP diastolic 37–100; PULSE 67–132; RESP 14–38; TEMP 97.7–98.8; O2SAT 91–100
[2025-02-11 04:35] LABS: Hematocrit 27.6 % (41.0-53.0); Hemoglobin 9.3 g/dL (13.5-17.5); Mean Corpuscular Hemoglobin 28.1 pg (28.0-32.0); Mean Corpuscular Volume 83.3 fL (80.0-100.0); Nucleated Red Blood Cells % 0.1 %
[2025-02-11 04:42] LABS: Alanine Aminotransferase 14 U/L (7-40); Albumin 3.8 g/dL (3.2-4.8); Alkaline Phosphatase 84 U/L (46-116); Anion Gap 13 (5-15); BUN/Creatinine Ratio 19.0 (10.0-20.0); Blood Urea Nitrogen 11 mg/dL (9-23); Calcium 9.3 mg/dL (8.7-10.4); Carbon Dioxide 27 mmol/L (20-31); Chloride 99 mmol/L (98-107); Glucose 97 mg/dL (74-106); Potassium 3.5 mmol/L (3.5-5.1); Sodium 139 mmol/L (136-145); Total Protein 7.1 g/dL (5.7-8.2)
[2025-02-11 04:45] LABS: Bilirubin, Total 0.2 mg/dL (0.2-1.0)
--- NOTE | 2025-02-11 08:47 | DVH ---
CHEST RADIOGRAPH Indication: f/u Technique: Single frontal view of the chest was obtained Comparison: XY CHEST PORTABLE on DOS: 02/09/25, XY CHEST PORTABLE on DOS: 02/09/25, XY CHEST XRAY 1 VIE W on DOS: 02/09/25, XY CHEST PORTABLE on DOS: 02/08/25, XY CHEST XRAY 1 VIEW on DOS: 02/08/25, XY CHEST PORTABLE on DOS: 02/09/25 FINDINGS: Lines and Tubes: Tracheostomy tube and enteric tube are in satisfactory position. Lungs: Elevated right hemidiaphragm with hazy opacification of the right upper and mid lung zone and mild interstitial prominence. Pleura: No effusion. No pneumothorax. Cardiomediastinal contours: Unremarkable Bones: No acute osseous abnormality. IMPRESSION: Tracheostomy tube and enteric tube are in satisfactory position. Diffuse interstitial prominence with hazy opacification of the right mid and lower lung zone which ma y represent pneumonia/ interstitial pneumonitis/ pulmonary edema.
[2025-02-11] MEDS: POTASSIUM EFFERVESENT TAB 25 MEQ GT ONE (09:01)
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
--- NOTE | 2025-02-11 19:09 | DVHPNRES ---
Progress Note Date Seen: Feb 11, 2025 Resident Creating Document: VALERIE HESTER RESIDENT Has the PT tested + for MRSA If YES, has PT been informed?: No Medical Necessity Reason Pt with a Central, PICC or Fol: Yes The following are medically ne: Navarrete Catheter Reason for navarrete catheter: Strict I&O Subjective Review of Systems This is a 44-year-old male with a epilepsy, chronic pain syndrome on opiates, gout who is hospital stay has been prolonged secondary to acute peritonitis, intra-abdominal sepsis status post exploratory laparotomy 12/27 and repeated on 01/05, intra-abdominal sepsis with Citrobacter and VRE, perisplenic collection, status post colostomy and tracheostomy 01/05 and a right upper arm DVT 01/09 Overnight, patient is afebrile, tachycardic into 120s but Sinus, tachypneic intermittently, normotensive, on TPs at 10 L with 35% FiO2. Urine output 1400, stool output 2-5 cc from colostomy. Patient is sitting in the chair comfortably, CBC stable, CMP unremarkable, started clear liquid diet. DC Precedex today. Objective vital signs Vital Sign Date Time Temp Pulse Resp B/P (MAP) Pulse Ox O2 Delivery O2 Flow Rate FiO2 02/11/25 18:18 114 18 97 02/11/25 18:12 Trach Collar 10.0 02/11/25 18:12 35 35 02/11/25 18:00 118/81 (93) 02/11/25 16:00 98.4 98.4 Total Intake and Output 02/10/25 02/10/25 02/11/25 15:00 23:00 07:00 Intake Total 609.46 ml 1043.46 ml 289.96 ml Output Total 1250 ml 375 ml Balance 609.46 ml -206.54 ml -85.04 ml medications Current Medications Medications Dose Ordered Sig/Sherron Route Start Time Stop Time Status Last Admin Dose Admin Pantoprazole Sodium 40 mg DAILY IV 12/18/24 10:00 02/11/25 09:05 40 MG Valproate Sodium 250 mg/Sodium Chloride 52.5 ml @ 52.5 mls/hr BID IV 12/17/24 22:00 02/11/25 09:05 52.5 MLS/HR Sodium Chloride 40 meq/Potassium Chloride 40 meq/ Potassium Phosphate 11 meq/ Calcium Gluconate 2.3 meq/Magnesium Sulfate 8 meq/ Multivitamins 10 ml/Chromium/ Copper/Manganese/ Zinc 1 ml/Amino Acids/Dextrose/ Purified Water 1,450.4462 ml @ 60 mls/hr [id number] IV 12/26/24 22:00 12/27/24 21:59 Cancel Sodium Chloride 10 ml QSHIFT@10,22 IV 12/27/24 22:00 02/11/25 09:05 10 ML Artificial Tears 1 drop Q6HP PRN EACHEYE 12/29/24 23:45 01/06/25 09:00 1 DROP Ketamine HCl 50 mg [id number] PRN IV 01/04/25 15:00 01/05/25 07:00 Cancel Sodium Chloride 120 meq/Potassium Chloride 50 meq/ Potassium Acetate 50 meq/Calcium Gluconate 4.65 meq/Magnesium Sulfate 34 meq/ Multivitamins 10 ml/Chromium/ Copper/Manganese/ Zinc 1 ml/Amino Acids/Dextrose/ Purified Water 1,659.5 ml @ 68.108 mls/hr [id number] IV 01/09/25 22:00 01/10/25 21:59 Cancel Sodium Chloride 100 meq/Potassium Chloride 50 meq/ Calcium Gluconate 4.65 meq/ Magnesium Sulfate 34 meq/ Multivitamins 10 ml/Chromium/ Copper/Manganese/ Zinc 1 ml/Sodium Phosphate 20 meq/ Potassium Acetate 50 meq/Amino Acids/Dextrose/ Purified Water 1,659.5 ml @ 68.537 mls/hr [id number] IV 01/09/25 09:30 01/09/25 21:59 Cancel Linezolid 300 ml @ 150 mls/hr Q12H IV 01/11/25 23:00 02/11/25 10:29 150 MLS/HR Thiamine HCl 100 mg DAILY IV 01/20/25 10:00 02/11/25 09:03 100 MG Folic Acid 1 mg DAILY PO 01/20/25 10:00 02/11/25 09:04 1 MG Acetaminophen 650 mg Q6HP PRN GT 01/22/25 10:15 02/10/25 13:20 650 MG Micafungin Sodium 100 mg/Sodium Chloride 100 ml @ 100 mls/hr DAILY IV 01/23/25 10:00 02/11/25 09:05 100 MLS/HR Enteral Nutritional Formula 1,000 ml 50ML/HR GT 01/23/25 13:00 02/10/25 21:50 1,000 ML Mupirocin 1 applic BID EACHNOSTRI 01/27/25 22:00 02/01/25 21:59 UNV Diphenhydramine HCl 25 mg Q6HP PRN IV 01/30/25 19:45 02/03/25 10:12 25 MG Acetylcysteine 200 mg Q6HR NEB 02/06/25 12:00 02/11/25 18:07 200 MG Ipratropium [place] 0.5 mg Q6HR NEB 02/06/25 12:00 02/11/25 18:07 0.5 MG Lorazepam 1 mg ONCE PRN IV 02/06/25 10:45 Levalbuterol HCl 1.25 mg Q6HR NEB 02/06/25 18:00 02/11/25 18:07 1.25 MG Levetiracetam 500 mg BID PO 02/06/25 22:00 02/11/25 09:03 500 MG Enoxaparin Sodium 70 mg Q12HR SC 02/06/25 22:00 02/11/25 09:05 70 MG Meropenem 50 ml @ 17 mls/hr Q8HR IV 02/07/25 14:00 02/11/25 13:45 17 MLS/HR Olanzapine 10 mg DAILY PO 02/08/25 10:00 02/11/25 09:04 10 MG Fentanyl 75 mcg Q72H TD 02/08/25 08:15 02/11/25 09:38 75 MCG Acetaminophen/ Hydrocodone Bitart 1 tab Q4HPRN PRN PO 02/10/25 13:45 02/11/25 11:04 1 TAB Chlordiazepoxide HCl 25 mg TID PO 02/11/25 22:00 Examination Patient sitting comfortably in the chair, out of bed, well conversational, no acute distress General: Well-built, afebrile, palor, mucosae are moist Cardiovascular: Tachycardic but Regular S1 and S2. No murmurs, gallops or rubs. No JVD elevation. No pedal edema Respiratory: Normal B/L air entry 10 L NC bilateral equal air entry Abdomen: Soft, nontender, nondistended, normoactive bowel sounds, no rebound tenderness, no organomegaly, no masses Genitourinary: Navarrete seen MSK/skin: Patient is ambulating Neurological: Pupils are isocoric and reactive. Psych/Mental Status: A/Ox2 laboratory and microbiology Laboratory Tests 02/11/25 03:20 Test 02/11/25 03:20 Range/Units Serum Glucose 97 74-106 mg/dL Microbiology Date/Time Source Procedure Growth Status 02/07/25 02:15 Urine - Navarrete Port Urine Culture - Final Complete 01/22/25 18:44 Blood Blood Culture - Final NO GROWTH AFTER 5 DAYS OF INCUBATION. Complete 01/18/25 10:40 Sputum Gram Stain - Final Complete 01/18/25 10:40 Sputum Respiratory Culture - Final Complete 01/05/25 08:15 Other Abscess Gram Stain - Final Complete 01/05/25 08:15 Other Abscess Anaerobic Culture - Final Complete 01/05/25 08:15 Aerobic Culture - Final Enterococcus faecium - VRE Complete 01/05/25 08:02 Peritoneal Fluid Gram Stain - Final Complete 01/05/25 08:02 Peritoneal Fluid Anaerobic Culture - Final Complete 01/05/25 08:02 Aerobic Culture - Final Enterococcus faecium - VRE Citrobacter freundii Vanc Resistant Enterococcus Complete Labs and/or images reviewed: Labs reviewed by me, Image(s) reviewed by me Problem List/Assessment/Plan Problem List/Assessment/Plan NEURO: Acute metabolic encephalopathy likely due to in-hospital delirium History of epilepsy Wheelchair-bound 2022 status post fall Continue valproate twice daily Diphenhydramine q.6 p.r.n. for agitation, Librium 25 mg TID Keppra b.i.d. Olanzapine 10 mg daily CARDIOVASCULAR: Septic shock likely due to intra-abdominal sepsis Sinus tachycardia Monitor PULMONARY: Acute hypoxic respiratory failure status post intubation status post tracheostomy 01/05 Likely acute respiratory distress syndrome-non cardiogenic pulmonary edema- resolving Pleural effusion status post thoracocentesis Nebulized treatments daily GASTROINTESTINAL: Intractable pain secondary to Intra-abdominal sepsis with VRE and peritonitis status post exploratory laparotomy x2 01/05 and 12/27 Status post bowel resection and colostomy Intra-abdominal abscess Splenic fluid collection Pantoprazole 40 mg IV daily IV Zyvox, meropenem and micafungin daily Fentanyl patch 75 mcg, deescalate GENITOURINARY: DC Navarrete catheter METABOLIC: Hypoalbuminemia Moderate to severe protein calorie malnutrition HEMATOLOGY/ONCOLOGY Right upper extremity DVT 01/09 Left upper extremity superficial thrombosis Anemia likely normocytic status post 3 packed RBC transfusion Thrombocytosis Lovenox 70 mg b.i.d. INFECTIOUS DISEASE: Intra-abdominal sepsis with VRE IV Zyvox and meropenem and micafungin MUSCULOSKELETAL Chronic open dependence Thiamine and folic acid daily DIET: Clear liquid diet Lovenox therapeutic dose GI prophylaxis: Protonix Code status: Full code LINES/DRAINS/ACCESS: IV access: Left femoral central line 01/28, discontinue once peripheral IV is inserted Drips: Tube feedings Navarrete catheter DISPOSITION: ICU PT eval Patient's status discussed with Family Critical care time spent more than 61 minutes, including patient care, chart review, and updating the family. Excluding any procedures Case discussed with Dr. Pérez Plan discussed with: Patient My Orders My Orders Orders - VALERIE HESTER Procedure Category Date Status Time Chest Xray 1 View XY 02/11/25 Resulted 07:02 * Swallow Request ST 02/11/25 Transmitted 07:29 Dietary Evaluation Review Comments: 1. TF: Vital AF@50ml/hr (90g protein, 1440kcal 973 free water) meeting Protein needs 83%, energy needs 80%. 2. TPN per pharmacy meeting 75% of his needs if TF not feasible or NPO>7 days. 3. Diet as tolerated per [employer] eval when off Vent Expected Outcomes/Goals: Preventing catabolism Date of Service: Feb 11, 2025 Billing Provider: MARIELA PÉREZ MD Common Visit Codes: [id number] CARE 30-74 MIN VALERIE HESTER Feb 11, 2025 19:09 MARIELA PÉREZ MD Feb 12, 2025 16:18
--- NOTE | 2025-02-11 21:53 | DVHPN2 ---
Progress Note - Dictate Date Seen: Feb 11, 2025 Has the PT tested + for MRSA If YES, has PT been informed?: No Medical Necessity Reason Pt with a Central, PICC or Fol: Yes The following are medically ne: Navarrete Catheter Reason for navarrete catheter: Strict I&O Subjective Patient is stable from a GI point of view He is tolerating tube feedings Colostomy is functional Patient was out of bed to chair Precedex as discontinue Central line and Navarrete catheter were removed Hemoglobin stable at 9.3 after 2 units PRBC No active GI bleeding reported Leukocytosis improving; thrombocytosis persists [id number] vital signs Vital Sign Date Time Temp Pulse Resp B/P (MAP) Pulse Ox O2 Delivery O2 Flow Rate FiO2 02/11/25 18:18 114 18 97 02/11/25 18:12 Trach Collar 10.0 02/11/25 18:12 35 35 02/11/25 18:00 118/81 (93) 02/11/25 16:00 98.4 98.4 Total Intake and Output 02/10/25 02/10/25 02/11/25 15:00 23:00 07:00 Intake Total 609.46 ml 1043.46 ml 289.96 ml Output Total 1250 ml 375 ml Balance 609.46 ml -206.54 ml -85.04 ml medications Current Medications Medications Dose Ordered Sig/Sherron Route Start Time Stop Time Status Last Admin Dose Admin Pantoprazole Sodium 40 mg DAILY IV 12/18/24 10:00 02/11/25 09:05 40 MG Valproate Sodium 250 mg/Sodium Chloride 52.5 ml @ 52.5 mls/hr BID IV 12/17/24 22:00 02/11/25 21:25 52.5 MLS/HR Sodium Chloride 40 meq/Potassium Chloride 40 meq/ Potassium Phosphate 11 meq/ Calcium Gluconate 2.3 meq/Magnesium Sulfate 8 meq/ Multivitamins 10 ml/Chromium/ Copper/Manganese/ Zinc 1 ml/Amino Acids/Dextrose/ Purified Water 1,450.4462 ml @ 60 mls/hr [id number] IV 12/26/24 22:00 12/27/24 21:59 Cancel Sodium Chloride 10 ml QSHIFT@10,22 IV 12/27/24 22:00 02/11/25 20:40 10 ML Artificial Tears 1 drop Q6HP PRN EACHEYE 12/29/24 23:45 01/06/25 09:00 1 DROP Ketamine HCl 50 mg [id number] PRN IV 01/04/25 15:00 01/05/25 07:00 Cancel Sodium Chloride 120 meq/Potassium Chloride 50 meq/ Potassium Acetate 50 meq/Calcium Gluconate 4.65 meq/Magnesium Sulfate 34 meq/ Multivitamins 10 ml/Chromium/ Copper/Manganese/ Zinc 1 ml/Amino Acids/Dextrose/ Purified Water 1,659.5 ml @ 68.108 mls/hr [id number] IV 01/09/25 22:00 01/10/25 21:59 Cancel Sodium Chloride 100 meq/Potassium Chloride 50 meq/ Calcium Gluconate 4.65 meq/ Magnesium Sulfate 34 meq/ Multivitamins 10 ml/Chromium/ Copper/Manganese/ Zinc 1 ml/Sodium Phosphate 20 meq/ Potassium Acetate 50 meq/Amino Acids/Dextrose/ Purified Water 1,659.5 ml @ 68.537 mls/hr [id number] IV 01/09/25 09:30 01/09/25 21:59 Cancel Linezolid 300 ml @ 150 mls/hr Q12H IV 01/11/25 23:00 02/11/25 21:26 150 MLS/HR Thiamine HCl 100 mg DAILY IV 01/20/25 10:00 02/11/25 09:03 100 MG Folic Acid 1 mg DAILY PO 01/20/25 10:00 02/11/25 09:04 1 MG Acetaminophen 650 mg Q6HP PRN GT 01/22/25 10:15 02/10/25 13:20 650 MG Micafungin Sodium 100 mg/Sodium Chloride 100 ml @ 100 mls/hr DAILY IV 01/23/25 10:00 02/11/25 09:05 100 MLS/HR Enteral Nutritional Formula 1,000 ml 50ML/HR GT 01/23/25 13:00 02/10/25 21:50 1,000 ML Mupirocin 1 applic BID EACHNOSTRI 01/27/25 22:00 02/01/25 21:59 UNV Diphenhydramine HCl 25 mg Q6HP PRN IV 01/30/25 19:45 02/11/25 21:12 25 MG Acetylcysteine 200 mg Q6HR NEB 02/06/25 12:00 02/11/25 18:07 200 MG Ipratropium [place] 0.5 mg Q6HR NEB 02/06/25 12:00 02/11/25 18:07 0.5 MG Lorazepam 1 mg ONCE PRN IV 02/06/25 10:45 Levalbuterol HCl 1.25 mg Q6HR NEB 02/06/25 18:00 02/11/25 18:07 1.25 MG Levetiracetam 500 mg BID PO 02/06/25 22:00 02/11/25 20:39 500 MG Enoxaparin Sodium 70 mg Q12HR SC 02/06/25 22:00 02/11/25 20:41 70 MG Meropenem 50 ml @ 17 mls/hr Q8HR IV 02/07/25 14:00 02/11/25 20:39 17 MLS/HR Olanzapine 10 mg DAILY PO 02/08/25 10:00 02/11/25 09:04 10 MG Fentanyl 75 mcg Q72H TD 02/08/25 08:15 02/11/25 09:38 75 MCG Acetaminophen/ Hydrocodone Bitart 1 tab Q4HPRN PRN PO 02/10/25 13:45 02/11/25 20:43 1 TAB Chlordiazepoxide HCl 25 mg TID PO 02/11/25 22:00 02/11/25 20:40 25 MG objective General Appearance: s/p trach on ventilator agitated, overbreathing, trashing around PERRLA MMM mechanical breath sounds s1 s2 tachy abdomen with surg scar and colostomy Abdominal: Binder in place, soft, distended, no bowel sounds; minimal colostomy liquid output Extremities: No clubbing, No cyanosis, No edema, Normal pulses, No tenderness/swelling laboratory and microbiology Laboratory Tests 02/11/25 03:20 Test 02/11/25 03:20 Range/Units Serum Glucose 97 74-106 mg/dL Problems(with codes): (1) Sigmoid colon injury (2) Peritonitis (3) Neuropathy involving both lower extremities (4) Constipation (5) Acute respiratory failure (6) Sepsis, unspecified organism (7) Generalized weakness (8) Abnormal finding on GI tract imaging (9) Abdominal pain Prognosis Plan Advance tube feedings as tolerated Swallow evaluation when the patient is able to initiate that Continue to monitor labs Prognosis remains guarded Patient will need long-term rehab Dietary Evaluation Review Comments: 1. TF: Vital AF@50ml/hr (90g protein, 1440kcal 973 free water) meeting Protein needs 83%, energy needs 80%. 2. TPN per pharmacy meeting 75% of his needs if TF not feasible or NPO>7 days. 3. 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
[2025-02-12] VITALS (33 sets, daily range): BP systolic 131–185; BP diastolic 58–115; PULSE 70–129; RESP 15–36; TEMP 97.7–98.3; O2SAT 91–100
[2025-02-12 04:24] LABS: Hemoglobin 12.4 g/dL (13.5-17.5)
[2025-02-12 04:26] LABS: Hematocrit 36.8 % (41.0-53.0); Mean Corpuscular Hemoglobin 28.3 pg (28.0-32.0); Mean Corpuscular Volume 84.1 fL (80.0-100.0); Nucleated Red Blood Cells % 0.2 %
[2025-02-12 04:49] LABS: Alanine Aminotransferase 17 U/L (7-40); Alkaline Phosphatase 104 U/L (46-116); Anion Gap 16 (5-15); BUN/Creatinine Ratio 13.7 (10.0-20.0); Calcium 10.2 mg/dL (8.7-10.4); Carbon Dioxide 24 mmol/L (20-31); Glucose 91 mg/dL (74-106); Magnesium 1.8 mg/dL (1.6-2.6); Potassium 3.6 mmol/L (3.5-5.1); Sodium 137 mmol/L (136-145)
[2025-02-12 04:50] LABS: Bilirubin, Total 0.3 mg/dL (0.2-1.0)
[2025-02-12] MEDS: ONDANSETRON HCL 4 MG/2 ML VIAL IV PRN (05:09)
[2025-02-12 05:23] LABS: Albumin 4.8 g/dL (3.2-4.8); Blood Urea Nitrogen 7 mg/dL (9-23); Chloride 97 mmol/L (98-107); Total Protein 8.6 g/dL (5.7-8.2)
--- NOTE | 2025-02-12 09:04 | DVHPN2 ---
Progress Note Date Seen: Feb 12, 2025 Resident Creating Document: ROBYN CARRANZA RESIDENT Has the PT tested + for MRSA If YES, has PT been informed?: No Medical Necessity Reason Pt with a Central, PICC or Fol: Yes The following are medically ne: Navarrete Catheter Reason for navarrete catheter: Strict I&O Subjective Review of Systems Patient is a 44-year-old male with past medical history of epilepsy, chronic pain syndrome, gout, who recently came due to constipation, was subsequently diagnosed with acute peritonitis along with intra-abdominal sepsis, subsequently patient underwent expiratory laparotomy on 12/27/2024 and then a repeat laparotomy on 01/05/2025. Intra-abdominal sepsis with Citrobacter and VRE, perisplenic collection was noted. Patient is s/p colostomy and tracheostomy. Patient seen and examined at bedside Patient was started on a liquid diet yesterday, patient notes after consuming the soup he started experiencing abdominal pain which was persistent, also notes chills and hot flashes overnight Overnight 40 cc brown soft stool output in the colostomy, 120 cc yesterday Patient notes anxiety and fine tremor noted. Complaining of persistent heartburn. Objective vital signs Vital Sign Date Time Temp Pulse Resp B/P (MAP) Pulse Ox O2 Delivery O2 Flow Rate FiO2 02/12/25 08:00 35 02/12/25 07:01 78 25 179/89 (119) 96 02/12/25 06:25 Trach Collar 10.0 02/12/25 04:00 97.9 97.9 Total Intake and Output 02/11/25 02/11/25 02/12/25 15:00 23:00 07:00 Intake Total 502.5 ml 981.0 ml 144 ml Output Total 1625 ml 165 ml Balance 502.5 ml -644.0 ml -21 ml medications Current Medications Medications Dose Ordered Sig/Sherron Route Start Time Stop Time Status Last Admin Dose Admin Pantoprazole Sodium 40 mg DAILY IV 12/18/24 10:00 02/11/25 09:05 40 MG Valproate Sodium 250 mg/Sodium Chloride 52.5 ml @ 52.5 mls/hr BID IV 12/17/24 22:00 02/11/25 21:25 52.5 MLS/HR Sodium Chloride 40 meq/Potassium Chloride 40 meq/ Potassium Phosphate 11 meq/ Calcium Gluconate 2.3 meq/Magnesium Sulfate 8 meq/ Multivitamins 10 ml/Chromium/ Copper/Manganese/ Zinc 1 ml/Amino Acids/Dextrose/ Purified Water 1,450.4462 ml @ 60 mls/hr [id number] IV 12/26/24 22:00 12/27/24 21:59 Cancel Sodium Chloride 10 ml QSHIFT@10,22 IV 12/27/24 22:00 02/11/25 20:40 10 ML Artificial Tears 1 drop Q6HP PRN EACHEYE 12/29/24 23:45 01/06/25 09:00 1 DROP Ketamine HCl 50 mg [id number] PRN IV 01/04/25 15:00 01/05/25 07:00 Cancel Sodium Chloride 120 meq/Potassium Chloride 50 meq/ Potassium Acetate 50 meq/Calcium Gluconate 4.65 meq/Magnesium Sulfate 34 meq/ Multivitamins 10 ml/Chromium/ Copper/Manganese/ Zinc 1 ml/Amino Acids/Dextrose/ Purified Water 1,659.5 ml @ 68.108 mls/hr [id number] IV 01/09/25 22:00 01/10/25 21:59 Cancel Sodium Chloride 100 meq/Potassium Chloride 50 meq/ Calcium Gluconate 4.65 meq/ Magnesium Sulfate 34 meq/ Multivitamins 10 ml/Chromium/ Copper/Manganese/ Zinc 1 ml/Sodium Phosphate 20 meq/ Potassium Acetate 50 meq/Amino Acids/Dextrose/ Purified Water 1,659.5 ml @ 68.537 mls/hr [id number] IV 01/09/25 09:30 01/09/25 21:59 Cancel Linezolid 300 ml @ 150 mls/hr Q12H IV 01/11/25 23:00 02/11/25 21:26 150 MLS/HR Thiamine HCl 100 mg DAILY IV 01/20/25 10:00 02/11/25 09:03 100 MG Folic Acid 1 mg DAILY PO 01/20/25 10:00 02/11/25 09:04 1 MG Acetaminophen 650 mg Q6HP PRN GT 01/22/25 10:15 02/10/25 13:20 650 MG Micafungin Sodium 100 mg/Sodium Chloride 100 ml @ 100 mls/hr DAILY IV 01/23/25 10:00 02/11/25 09:05 100 MLS/HR Enteral Nutritional Formula 1,000 ml 50ML/HR GT 01/23/25 13:00 02/10/25 21:50 1,000 ML Mupirocin 1 applic BID EACHNOSTRI 01/27/25 22:00 02/01/25 21:59 UNV Diphenhydramine HCl 25 mg Q6HP PRN IV 01/30/25 19:45 02/11/25 21:12 25 MG Acetylcysteine 200 mg Q6HR NEB 02/06/25 12:00 02/12/25 06:25 200 MG Ipratropium [place] 0.5 mg Q6HR NEB 02/06/25 12:00 02/12/25 06:24 0.5 MG Lorazepam 1 mg ONCE PRN IV 02/06/25 10:45 Levalbuterol HCl 1.25 mg Q6HR NEB 02/06/25 18:00 02/12/25 06:25 1.25 MG Levetiracetam 500 mg BID PO 02/06/25 22:00 02/11/25 20:39 500 MG Enoxaparin Sodium 70 mg Q12HR SC 02/06/25 22:00 02/11/25 20:41 70 MG Meropenem 50 ml @ 17 mls/hr Q8HR IV 02/07/25 14:00 02/12/25 05:09 17 MLS/HR Olanzapine 10 mg DAILY PO 02/08/25 10:00 02/11/25 09:04 10 MG Fentanyl 75 mcg Q72H TD 02/08/25 08:15 02/11/25 09:38 75 MCG Acetaminophen/ Hydrocodone Bitart 1 tab Q4HPRN PRN PO 02/10/25 13:45 02/12/25 05:08 1 TAB Chlordiazepoxide HCl 25 mg TID PO 02/11/25 22:00 02/12/25 05:09 25 MG Ondansetron HCl 4 mg Q4HPRN PRN IV 02/12/25 05:00 02/12/25 05:09 4 MG Examination Patient sitting comfortably in the chair, out of bed, well conversational, no acute distress General: Well-built, afebrile, palor, mucosae are moist Cardiovascular: Tachycardic but Regular S1 and S2. No murmurs, gallops or rubs. No JVD elevation. No pedal edema Respiratory: Normal B/L air entry 10 L NC bilateral equal air entry Abdomen: Soft, nontender, nondistended, normoactive bowel sounds, no rebound tenderness, no organomegaly, no masses Genitourinary: Navarrete seen MSK/skin: Patient is ambulating Neurological: Pupils are isocoric and reactive. Psych/Mental Status: A/Ox2 laboratory and microbiology Laboratory Tests 02/12/25 03:23 Test 02/12/25 03:23 Range/Units Serum Glucose 91 74-106 mg/dL Microbiology Date/Time Source Procedure Growth Status 02/07/25 02:15 Urine - Navarrete Port Urine Culture - Final Complete 01/22/25 18:44 Blood Blood Culture - Final NO GROWTH AFTER 5 DAYS OF INCUBATION. Complete 01/18/25 10:40 Sputum Gram Stain - Final Complete 01/18/25 10:40 Sputum Respiratory Culture - Final Complete 01/05/25 08:15 Other Abscess Gram Stain - Final Complete 01/05/25 08:15 Other Abscess Anaerobic Culture - Final Complete 01/05/25 08:15 Aerobic Culture - Final Enterococcus faecium - VRE Complete 01/05/25 08:02 Peritoneal Fluid Gram Stain - Final Complete 01/05/25 08:02 Peritoneal Fluid Anaerobic Culture - Final Complete 01/05/25 08:02 Aerobic Culture - Final Enterococcus faecium - VRE Citrobacter freundii Vanc Resistant Enterococcus Complete Labs and/or images reviewed: Labs reviewed by me, Image(s) reviewed by me Problem List/Assessment/Plan Problem List/Assessment/Plan Acute peritonitis S/P laparotomy with bowel resection with colostomy and abscess drainage Intra-abdominal sepsis, VRE/Citrobacter peritonitis Splenic fluid collection; CT abdomen pelvis from 01/25/2025: Trace ascites with component of loculation over the anterior lower abdomen left lateral upper abdomen. 6.1 x 1.5 x 11 cm loculated fluid over the left upper abdominal quadrant lateral to the spleen with a Left mid to lower abdominal approach drainage catheter terminating over the inferior portion of the fluid collection. The loculated fluid are marginally decreased in size from prior imaging. Sigmoid colon injury Acute hypoxic respiratory failure, s/p extubation with trach collar Constipation New onset heartburn/GERD Plan: Increased IV Protonix 40 mg 2 b.i.d. Added Carafate 1 g b.i.d. Monitor colostomy output for volume, consistency and viability Continue antibiotics Swallow evaluation Continue clear liquid diet as tolerated Thank you so much for the opportunity to consult on your patient. GI team will follow the patient. In case of any questions or concerns please feel free to reach out. Plan discussed with Dr. Bailey Plan discussed with: Patient, Other (RN) Dietary Evaluation Review Comments: 1. TF: Vital AF@50ml/hr (90g protein, 1440kcal 973 free water) meeting Protein needs 83%, energy needs 80%. 2. TPN per pharmacy meeting 75% of his needs if TF not feasible or NPO>7 days. 3. 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
[2025-02-12] MEDS: CALCIUM CARB 500 MG CHEW TAB PO ONE (09:54)
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
[2025-02-12] MEDS: hydrALAZINE HCL 20 MG/ML VL IV ONE (12:31)
--- NOTE | 2025-02-12 15:28 | DVH ---
INDICATION: s/p tracheostomy TECHNIQUE: Frontal view of the chest. COMPARISON: XY CHEST XRAY 1 VIEW on DOS: 02/11/25, XY CHEST PORTABLE on DOS: 02/09/25, XY CHEST PORTABL E on DOS: 02/09/25, XY CHEST XRAY 1 VIEW on DOS: 02/09/25, XY CHEST PORTABLE on DOS: 02/08/25 FINDINGS: Tracheostomy is stable. Elevated right hemidiaphragm again noted. NG tube again seen. Hazy bilateral opacifications again seen and unchanged. IMPRESSION: 1. No significant change
[2025-02-12] MEDS: LORazepam 2MG/ML-1ML VIAL IV PRN (16:46)
[2025-02-12] MEDS: PROPRANOLOL HCL 20 MG TAB PO ONE (16:47)
[2025-02-12] MEDS: SUCRALFATE 1 GM/10 ML ORAL SUSP PO SCH (17:26)
--- NOTE | 2025-02-12 18:33 | DVHPNRES ---
Progress Note Date Seen: Feb 12, 2025 Resident Creating Document: ERROL ESPOSITO RESIDENT Has the PT tested + for MRSA If YES, has PT been informed?: No Medical Necessity Reason Pt with a Central, PICC or Fol: Yes The following are medically ne: Navarrete Catheter Reason for navarrete catheter: Strict I&O Subjective Review of Systems This is a 44-year-old male with a epilepsy, chronic pain syndrome on opiates, gout who is hospital stay has been prolonged secondary to acute peritonitis, intra-abdominal sepsis status post exploratory laparotomy 12/27 and repeated on 01/05, intra-abdominal sepsis with Citrobacter and VRE, perisplenic collection, status post colostomy and tracheostomy 01/05 and a right upper arm DVT 01/09 Overnight, patient was afebrile, tachycardic into 120s but Sinus, tachypneic intermittently, hypertensive and on TPs at 10 L with 35% FiO2. Urine output 1625 ml, stool output 2-5 cc from colostomy. He is alert oriented x3, shaking, agitated and complaining of abdominal pain and nausea. Patient is wheelchair- bound on baseline and advised to do physical therapy to get strength on the upper part of the body, plan is to reduce trach size sequentially. Objective vital signs Vital Sign Date Time Temp Pulse Resp B/P (MAP) Pulse Ox O2 Delivery O2 Flow Rate FiO2 02/12/25 18:09 93 Trach Collar 30.0 02/12/25 18:09 120 18 02/12/25 18:09 30 30 02/12/25 18:00 132/84 (100) 02/12/25 16:00 97.9 97.9 Total Intake and Output 02/11/25 02/11/25 02/12/25 15:00 23:00 07:00 Intake Total 502.5 ml 981.0 ml 144 ml Output Total 1625 ml 165 ml Balance 502.5 ml -644.0 ml -21 ml medications Current Medications Medications Dose Ordered Sig/Sherron Route Start Time Stop Time Status Last Admin Dose Admin Valproate Sodium 250 mg/Sodium Chloride 52.5 ml @ 52.5 mls/hr BID IV 12/17/24 22:00 02/12/25 12:19 52.5 MLS/HR Sodium Chloride 40 meq/Potassium Chloride 40 meq/ Potassium Phosphate 11 meq/ Calcium Gluconate 2.3 meq/Magnesium Sulfate 8 meq/ Multivitamins 10 ml/Chromium/ Copper/Manganese/ Zinc 1 ml/Amino Acids/Dextrose/ Purified Water 1,450.4462 ml @ 60 mls/hr [id number] IV 12/26/24 22:00 12/27/24 21:59 Cancel Sodium Chloride 10 ml QSHIFT@10,22 IV 12/27/24 22:00 02/12/25 09:55 10 ML Artificial Tears 1 drop Q6HP PRN EACHEYE 12/29/24 23:45 01/06/25 09:00 1 DROP Ketamine HCl 50 mg [id number] PRN IV 01/04/25 15:00 01/05/25 07:00 Cancel Sodium Chloride 120 meq/Potassium Chloride 50 meq/ Potassium Acetate 50 meq/Calcium Gluconate 4.65 meq/Magnesium Sulfate 34 meq/ Multivitamins 10 ml/Chromium/ Copper/Manganese/ Zinc 1 ml/Amino Acids/Dextrose/ Purified Water 1,659.5 ml @ 68.108 mls/hr [id number] IV 01/09/25 22:00 01/10/25 21:59 Cancel Sodium Chloride 100 meq/Potassium Chloride 50 meq/ Calcium Gluconate 4.65 meq/ Magnesium Sulfate 34 meq/ Multivitamins 10 ml/Chromium/ Copper/Manganese/ Zinc 1 ml/Sodium Phosphate 20 meq/ Potassium Acetate 50 meq/Amino Acids/Dextrose/ Purified Water 1,659.5 ml @ 68.537 mls/hr [id number] IV 01/09/25 09:30 01/09/25 21:59 Cancel Linezolid 300 ml @ 150 mls/hr Q12H IV 01/11/25 23:00 02/12/25 09:55 150 MLS/HR Folic Acid 1 mg DAILY PO 01/20/25 10:00 02/12/25 09:55 1 MG Acetaminophen 650 mg Q6HP PRN GT 01/22/25 10:15 02/10/25 13:20 650 MG Micafungin Sodium 100 mg/Sodium Chloride 100 ml @ 100 mls/hr DAILY IV 01/23/25 10:00 02/12/25 09:56 100 MLS/HR Mupirocin 1 applic BID EACHNOSTRI 01/27/25 22:00 02/01/25 21:59 UNV Acetylcysteine 200 mg Q6HR NEB 02/06/25 12:00 02/12/25 18:09 200 MG Ipratropium [place] 0.5 mg Q6HR NEB 02/06/25 12:00 02/12/25 18:09 0.5 MG Lorazepam 1 mg ONCE PRN IV 02/06/25 10:45 Levalbuterol HCl 1.25 mg Q6HR NEB 02/06/25 18:00 02/12/25 18:09 1.25 MG Levetiracetam 500 mg BID PO 02/06/25 22:00 02/12/25 09:55 500 MG Enoxaparin Sodium 70 mg Q12HR SC 02/06/25 22:00 02/12/25 09:55 70 MG Olanzapine 10 mg DAILY PO 02/08/25 10:00 02/12/25 09:55 10 MG Fentanyl 75 mcg Q72H TD 02/08/25 08:15 02/11/25 09:38 75 MCG Acetaminophen/ Hydrocodone Bitart 1 tab Q4HPRN PRN PO 02/10/25 13:45 02/12/25 15:15 1 TAB Ondansetron HCl 4 mg Q4HPRN PRN IV 02/12/25 05:00 02/12/25 05:09 4 MG Pantoprazole Sodium 40 mg BID IV 02/12/25 22:00 Propranolol HCl 20 mg TID PO 02/12/25 22:00 Lorazepam 1 mg Q8HP PRN IV 02/12/25 16:15 02/12/25 16:46 1 MG Levofloxacin/ Dextrose 100 ml @ 100 mls/hr DAILY IV 02/13/25 10:00 Sucralfate 1 gm BID@0600,2200 PO 02/12/25 17:15 02/12/25 17:26 1 GM Examination Physical examination: General Appearance: Alert, Oriented X3, Cooperative, No acute distress HEENT: Atraumatic, PERRLA, EOMI, Mucous membrane moist/pink Respiratory: Status post tracheostomy, trach collar on 10 L, FiO2 35% Clear to auscultation, Normal air movement Cardiovascular: Regular rate, Normal S1, Normal S2, No murmurs, no chest wall tenderness Abdominal: Normal bowel sounds, Soft, No tenderness, No hepatospenomegaly, No masses, colostomy bag on the right side, another bag draining mucus on the left side Extremities: No clubbing, No cyanosis, No edema, Normal pulses, No tenderness/swelling Skin: No rashes, No breakdown, No significant lesion Neuro: Bed-bound, Normal speech, Strength at 5/5 X4 ext, Normal tone, Sensation intact, Cranial nerves 3-12 NL, Reflexes 2+ Psych/Mental Status: Mental status NL, Mood NL laboratory and microbiology Laboratory Tests 02/12/25 03:23 Test 02/12/25 03:23 Range/Units Serum Glucose 91 74-106 mg/dL Microbiology Date/Time Source Procedure Growth Status 02/07/25 02:15 Urine - Navarrete [place] Urine Culture - Final Complete 01/22/25 18:44 Blood Blood Culture - Final NO GROWTH AFTER 5 DAYS OF INCUBATION. Complete 01/18/25 10:40 Sputum Gram Stain - Final Complete 01/18/25 10:40 Sputum Respiratory Culture - Final Complete 01/05/25 08:15 Other Abscess Gram Stain - Final Complete 01/05/25 08:15 Other Abscess Anaerobic Culture - Final Complete 01/05/25 08:15 Aerobic Culture - Final Enterococcus faecium - VRE Complete 01/05/25 08:02 Peritoneal Fluid Gram Stain - Final Complete 01/05/25 08:02 Peritoneal Fluid Anaerobic Culture - Final Complete 01/05/25 08:02 Aerobic Culture - Final Enterococcus faecium - VRE Citrobacter freundii Vanc Resistant Enterococcus Complete Labs and/or images reviewed: Labs reviewed by me, Image(s) reviewed by me Problem List/Assessment/Plan Problem List/Assessment/Plan Assessment and plan: NEURO: Tremulousness and agitation likely due to withdrawl Acute metabolic encephalopathy likely due to in-hospital delirium History of epilepsy, seizure Wheelchair-bound 2022 status post fall - Continue valproate twice daily - Keppra b.i.d. - Propranolol 20 mg PO TID and Ativan 1 mg Q 8 p.r.n. for anxiety CARDIOVASCULAR: Septic shock likely due to intra-abdominal sepsis Sinus tachycardia - Monitor PULMONARY: Acute hypoxic respiratory failure status post tracheostomy 01/05 Pleural effusion status post thoracocentesis - Nebulized treatments daily GASTROINTESTINAL: Intractable pain secondary to Intra-abdominal sepsis with VRE and peritonitis status post exploratory laparotomy x2 01/05 and 12/27 Status post bowel resection and colostomy Intra-abdominal abscess Splenic fluid collection - Pantoprazole 40 mg IV daily and Carafate 1 g p.o. b.i.d. -IV Zyvox, levofloxacin and micafungin daily - GI on board - Fentanyl patch 75 mcg Q72 hour TD METABOLIC: Hypoalbuminemia Moderate to severe protein calorie malnutrition HEMATOLOGY/ONCOLOGY: Right upper extremity DVT 01/09 Left upper extremity superficial thrombosis Anemia likely normocytic status post 3 packed RBC transfusion Thrombocytosis - Therapeutic Lovenox 70 mg b.i.d. INFECTIOUS DISEASE: Intra-abdominal sepsis with VRE and Citrobacter freundii - IV Zyvox and levofloxacin and micafungin MUSCULOSKELETAL : Opioid dependence due to chronic pain syndrome DIET: pureed diet Lovenox therapeutic dose GI prophylaxis: Protonix Code status: Full code LINES/DRAINS/ACCESS: IV access: left upper arm midline Navarrete catheter: Removed DISPOSITION: ICU Physical therapy Patient's status discussed with Family Critical care time spent more than 61 minutes, including patient care, chart review, and updating the family. Excluding any procedures Case discussed with Dr. Pérez Plan discussed with: Patient, Other (RN, Nesha) My Orders My Orders Orders - ERROL ESPOSITO Procedure Category Date Status Time Chest Portable XY 02/12/25 Resulted 08:41 Levofloxacin 500mg PHA 02/13/25 In Process (Levaquin 500mg/ 100m 10:00 Dietary Evaluation Review Comments: 1. TF: Vital AF@50ml/hr (90g protein, 1440kcal 973 free water) meeting Protein needs 83%, energy needs 80%. 2. TPN per pharmacy meeting 75% of his needs if TF not feasible or NPO>7 days. 3. Diet as tolerated per WASHING MACHINE OPERATOR eval when off Vent Expected Outcomes/Goals: Preventing catabolism Date of Service: Feb 12, 2025 Billing Provider: MARIELA PÉREZ MD Common Visit Codes: 30490-[id number] CARE 30-74 MIN ERROL ESPOSITO Feb 12, 2025 18:33 MARIELA PÉREZ MD Feb 13, 2025 16:06
[2025-02-12] MEDS: PANTOPRAZOLE 40 MG/10 ML VIAL INJ IV SCH (20:23)
[2025-02-12] MEDS: PROPRANOLOL HCL 20 MG TAB PO SCH (20:25)
[2025-02-12] MEDS ORDERED: SUCRALFATE 1 GM/10 ML ORAL SUSP PO SCH (22:00)
[2025-02-13] VITALS (33 sets, daily range): BP systolic 104–157; BP diastolic 62–115; PULSE 76–116; RESP 13–29; TEMP 98–98.5; O2SAT 90–99
[2025-02-13 04:59] LABS: Hematocrit 34.7 % (41.0-53.0); Hemoglobin 11.5 g/dL (13.5-17.5); Mean Corpuscular Hemoglobin 27.7 pg (28.0-32.0); Mean Corpuscular Volume 83.5 fL (80.0-100.0); Nucleated Red Blood Cells % 0.0 %
[2025-02-13 05:01] LABS: Anion Gap 12 (5-15); Carbon Dioxide 25 mmol/L (20-31); Chloride 99 mmol/L (98-107); Potassium 3.8 mmol/L (3.5-5.1); Sodium 136 mmol/L (136-145)
[2025-02-13 05:02] LABS: Calcium 9.8 mg/dL (8.7-10.4)
[2025-02-13 05:07] LABS: BUN/Creatinine Ratio 12.5 (10.0-20.0); Glucose 98 mg/dL (74-106)
[2025-02-13 05:10] LABS: Blood Urea Nitrogen 6 mg/dL (9-23)
[2025-02-13] MEDS: LACTULOSE 20Gm/30ML SOLN PO SCH (09:31)
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
--- NOTE | 2025-02-13 15:55 | DVHPN2 ---
Progress Note Date Seen: Feb 13, 2025 Resident Creating Document: ROBYN CARRANZA RESIDENT Has the PT tested + for MRSA If YES, has PT been informed?: No Medical Necessity Reason Pt with a Central, PICC or Fol: Yes The following are medically ne: Navarrete Catheter Reason for navarrete catheter: Strict I&O Subjective Review of Systems Patient is a 44-year-old male with past medical history of epilepsy, chronic pain syndrome, gout, who recently came due to constipation, was subsequently diagnosed with acute peritonitis along with intra-abdominal sepsis, subsequently patient underwent expiratory laparotomy on 12/27/2024 and then a repeat laparotomy on 01/05/2025. Intra-abdominal sepsis with Citrobacter and VRE, perisplenic collection was noted. Patient is s/p colostomy and tracheostomy. Patient seen and examined at bedside Notes that he has had decreased oral intake since pain episode after having soup on the keke of 02/11/2025, encouraged patient to intake clear liquid diet as tolerated, patient demonstrated understanding Reports significant improvement in heartburn since starting sucralfate Continues to have anxiety and fine tremors Objective vital signs Vital Sign Date Time Temp Pulse Resp B/P (MAP) Pulse Ox O2 Delivery O2 Flow Rate FiO2 02/13/25 15:00 90 25 114/62 (79) 98 02/13/25 14:00 Nasal Cannula* 3 32 02/13/25 13:24 98.3 98.3 Total Intake and Output 02/12/25 02/12/25 02/13/25 15:00 23:00 07:00 Intake Total 502.5 ml 552.5 ml 180 ml Output Total 850 ml 290 ml Balance 502.5 ml -297.5 ml -110 ml medications Current Medications Medications Dose Ordered Sig/Sherron Route Start Time Stop Time Status Last Admin Dose Admin Valproate Sodium 250 mg/Sodium Chloride 52.5 ml @ 52.5 mls/hr BID IV 12/17/24 22:00 02/13/25 10:07 52.5 MLS/HR Sodium Chloride 40 meq/Potassium Chloride 40 meq/ Potassium Phosphate 11 meq/ Calcium Gluconate 2.3 meq/Magnesium Sulfate 8 meq/ Multivitamins 10 ml/Chromium/ Copper/Manganese/ Zinc 1 ml/Amino Acids/Dextrose/ Purified Water 1,450.4462 ml @ 60 mls/hr [id number] IV 12/26/24 22:00 7/10/25 21:59 Cancel Sodium Chloride 10 ml QSHIFT@10,22 IV 12/27/24 22:00 02/13/25 08:58 10 ML Artificial Tears 1 drop Q6HP PRN EACHEYE 12/29/24 23:45 01/06/25 09:00 1 DROP Ketamine HCl 50 mg [id number] PRN IV 01/04/25 15:00 01/05/25 07:00 Cancel Sodium Chloride 120 meq/Potassium Chloride 50 meq/ Potassium Acetate 50 meq/Calcium Gluconate 4.65 meq/Magnesium Sulfate 34 meq/ Multivitamins 10 ml/Chromium/ Copper/Manganese/ Zinc 1 ml/Amino Acids/Dextrose/ Purified Water 1,659.5 ml @ 68.108 mls/hr [id number] IV 01/09/25 22:00 01/10/25 21:59 Cancel Sodium Chloride 100 meq/Potassium Chloride 50 meq/ Calcium Gluconate 4.65 meq/ Magnesium Sulfate 34 meq/ Multivitamins 10 ml/Chromium/ Copper/Manganese/ Zinc 1 ml/Sodium Phosphate 20 meq/ Potassium Acetate 50 meq/Amino Acids/Dextrose/ Purified Water 1,659.5 ml @ 68.537 mls/hr [id number] IV 01/09/25 09:30 01/09/25 21:59 Cancel Linezolid 300 ml @ 150 mls/hr Q12H IV 01/11/25 23:00 02/13/25 13:21 150 MLS/HR Folic Acid 1 mg DAILY PO 01/20/25 10:00 02/13/25 08:58 1 MG Acetaminophen 650 mg Q6HP PRN GT 01/22/25 10:15 02/10/25 13:20 650 MG Micafungin Sodium 100 mg/Sodium Chloride 100 ml @ 100 mls/hr DAILY IV 01/23/25 10:00 02/13/25 11:11 100 MLS/HR Mupirocin 1 applic BID EACHNOSTRI 01/27/25 22:00 02/01/25 21:59 UNV Acetylcysteine 200 mg Q6HR NEB 02/06/25 12:00 02/13/25 11:21 200 MG Ipratropium [place] 0.5 mg Q6HR NEB 02/06/25 12:00 02/13/25 11:21 0.5 MG Lorazepam 1 mg ONCE PRN IV 02/06/25 10:45 Levalbuterol HCl 1.25 mg Q6HR NEB 02/06/25 18:00 02/13/25 11:21 1.25 MG Levetiracetam 500 mg BID PO 02/06/25 22:00 02/13/25 08:58 500 MG Enoxaparin Sodium 70 mg Q12HR SC 02/06/25 22:00 02/13/25 08:48 70 MG Olanzapine 10 mg DAILY PO 02/08/25 10:00 02/13/25 08:50 10 MG Fentanyl 75 mcg Q72H TD 02/08/25 08:15 02/11/25 09:38 75 MCG Acetaminophen/ Hydrocodone Bitart 1 tab Q4HPRN PRN PO 02/10/25 13:45 02/13/25 13:22 1 TAB Ondansetron HCl 4 mg Q4HPRN PRN IV 02/12/25 05:00 02/13/25 13:22 4 MG Propranolol HCl 20 mg TID PO 02/12/25 22:00 02/13/25 13:37 20 MG Lorazepam 1 mg Q8HP PRN IV 02/12/25 16:15 02/13/25 05:09 1 MG Levofloxacin/ Dextrose 100 ml @ 100 mls/hr DAILY IV 02/13/25 10:00 02/13/25 09:01 100 MLS/HR Sucralfate 1 gm BID@0600,2200 PO 02/12/25 17:15 02/13/25 05:09 1 GM Lactulose 30 ml DAILY PO 02/13/25 10:00 02/13/25 09:31 30 ML Pantoprazole Sodium 40 mg BID@0600,1700 PO 02/13/25 17:00 Examination Patient sitting comfortably in the chair, out of bed, well conversational, no acute distress General: Well-built, afebrile, palor, mucosae are moist Cardiovascular: Tachycardic but Regular S1 and S2. No murmurs, gallops or rubs. No JVD elevation. No pedal edema Respiratory: Normal B/L air entry 10 L NC bilateral equal air entry Abdomen: Soft, nontender, nondistended, normoactive bowel sounds, no rebound tenderness, no organomegaly, no masses Genitourinary: Navarrete seen MSK/skin: Patient is ambulating Neurological: Pupils are isocoric and reactive. Psych/Mental Status: A/Ox3 laboratory and microbiology Laboratory Tests 02/13/25 04:27 Test 02/13/25 04:27 Range/Units Serum Glucose 98 74-106 mg/dL Microbiology Date/Time Source Procedure Growth Status 02/07/25 02:15 Urine - Navarrete [place] Urine Culture - Final Complete 01/22/25 18:44 Blood Blood Culture - Final NO GROWTH AFTER 5 DAYS OF INCUBATION. Complete 01/18/25 10:40 Sputum Gram Stain - Final Complete 01/18/25 10:40 Sputum Respiratory Culture - Final Complete 01/05/25 08:15 Other Abscess Gram Stain - Final Complete 01/05/25 08:15 Other Abscess Anaerobic Culture - Final Complete 01/05/25 08:15 Aerobic Culture - Final Enterococcus faecium - VRE Complete 01/05/25 08:02 Peritoneal Fluid Gram Stain - Final Complete 01/05/25 08:02 Peritoneal Fluid Anaerobic Culture - Final Complete 01/05/25 08:02 Aerobic Culture - Final Enterococcus faecium - VRE Citrobacter freundii Vanc Resistant Enterococcus Complete Labs and/or images reviewed: Labs reviewed by me, Image(s) reviewed by me Problem List/Assessment/Plan Problem List/Assessment/Plan Acute peritonitis S/P laparotomy with bowel resection with colostomy and abscess drainage Intra-abdominal sepsis, VRE/Citrobacter peritonitis Splenic fluid collection; CT abdomen pelvis from 01/25/2025: Trace ascites with component of loculation over the anterior lower abdomen left lateral upper abdomen. 6.1 x 1.5 x 11 cm loculated fluid over the left upper abdominal quadrant lateral to the spleen with a Left mid to lower abdominal approach drainage catheter terminating over the inferior portion of the fluid collection. The loculated fluid are marginally decreased in size from prior imaging. Sigmoid colon injury Acute hypoxic respiratory failure, s/p extubation with trach collar Constipation New onset heartburn/GERD Plan: Increased IV Protonix 40 mg 2 b.i.d. Added Carafate 1 g b.i.d. Monitor colostomy output for volume, consistency and viability Continue antibiotics Swallow evaluation Continue clear liquid diet as tolerated, we will consider advancing to full liquid if patient is able to tolerate clear liquid diet today. Thank you so much for the opportunity to consult on your patient. GI team will follow the patient. In case of any questions or concerns please feel free to reach out. Plan discussed with Dr. Bailey Plan discussed with: Patient, Spouse, Other (RN) Dietary Evaluation Review Comments: 1. TF: Vital AF@50ml/hr (90g protein, 1440kcal 973 free water) meeting Protein needs 83%, energy needs 80%. 2. TPN per pharmacy meeting 75% of his needs if TF not feasible or NPO>7 days. 3. Diet as tolerated per [employer]IN[employer]ELOPER eval when off Vent Expected Outcomes/Goals: Preventing catabolism ROBYN CARRANZA RESIDENT Feb 13, 2025 15:55
[2025-02-13] MEDS: PANTOPRAZOLE 40 MG TAB PO SCH (17:20)
--- NOTE | 2025-02-13 17:43 | DVHPNRES ---
Progress Note Date Seen: Feb 13, 2025 Resident Creating Document: VALERIE HESTER RESIDENT Has the PT tested + for MRSA If YES, has PT been informed?: No Medical Necessity Reason Pt with a Central, PICC or Fol: No Reason for navarrete catheter: Strict I&O Subjective Review of Systems This is a 44-year-old male with a epilepsy, chronic pain syndrome on opiates, gout who is hospital stay has been prolonged secondary to acute peritonitis, intra-abdominal sepsis status post exploratory laparotomy 12/27 and repeated on 01/05, intra-abdominal sepsis with Citrobacter and VRE, perisplenic collection, status post colostomy and tracheostomy 01/05 and a right upper arm DVT 01/09 02/11 - Overnight, patient is afebrile, tachycardic into 120s but Sinus, tachypneic intermittently, normotensive, on TPs at 10 L with 35% FiO2. Urine output 1400, stool output 2-5 cc from colostomy. Patient is sitting in the chair comfortably, CBC stable, CMP unremarkable, started clear liquid diet. DC Precedex today. dc navarrete 02/13 - patient seen, axo3, onto chair, on cl liq diet, transitioning to eliquis, , restraining bands for PT, meds to po, dc micafungin, zyvox PO, ensure added Objective vital signs Vital Sign Date Time Temp Pulse Resp B/P (MAP) Pulse Ox O2 Delivery O2 Flow Rate FiO2 02/13/25 16:00 19 96 Nasal Cannula* 3 32 02/13/25 16:00 83 02/13/25 16:00 125/76 (92) 02/13/25 13:24 98.3 98.3 Total Intake and Output 02/12/25 02/12/25 02/13/25 15:00 23:00 07:00 Intake Total 502.5 ml 552.5 ml 180 ml Output Total 850 ml 290 ml Balance 502.5 ml -297.5 ml -110 ml medications Current Medications Medications Dose Ordered Sig/Sherron Route Start Time Stop Time Status Last Admin Dose Admin Valproate Sodium 250 mg/Sodium Chloride 52.5 ml @ 52.5 mls/hr BID IV 12/17/24 22:00 02/13/25 10:07 52.5 MLS/HR Sodium Chloride 40 meq/Potassium Chloride 40 meq/ Potassium Phosphate 11 meq/ Calcium Gluconate 2.3 meq/Magnesium Sulfate 8 meq/ Multivitamins 10 ml/Chromium/ Copper/Manganese/ Zinc 1 ml/Amino Acids/Dextrose/ Purified Water 1,450.4462 ml @ 60 mls/hr [id number] IV 12/26/24 22:00 12/27/24 21:59 Cancel Sodium Chloride 10 ml QSHIFT@10,22 IV 12/27/24 22:00 02/13/25 08:58 10 ML Artificial Tears 1 drop Q6HP PRN EACHEYE 12/29/24 23:45 01/06/25 09:00 1 DROP Ketamine HCl 50 mg [id number] PRN IV 01/04/25 15:00 01/05/25 07:00 Cancel Sodium Chloride 120 meq/Potassium Chloride 50 meq/ Potassium Acetate 50 meq/Calcium Gluconate 4.65 meq/Magnesium Sulfate 34 meq/ Multivitamins 10 ml/Chromium/ Copper/Manganese/ Zinc 1 ml/Amino Acids/Dextrose/ Purified Water 1,659.5 ml @ 68.108 mls/hr [id number] IV 01/09/25 22:00 01/10/25 21:59 Cancel Sodium Chloride 100 meq/Potassium Chloride 50 meq/ Calcium Gluconate 4.65 meq/ Magnesium Sulfate 34 meq/ Multivitamins 10 ml/Chromium/ Copper/Manganese/ Zinc 1 ml/Sodium Phosphate 20 meq/ Potassium Acetate 50 meq/Amino Acids/Dextrose/ Purified Water 1,659.5 ml @ 68.537 mls/hr [id number] IV 01/09/25 09:30 01/09/25 21:59 Cancel Linezolid 300 ml @ 150 mls/hr Q12H IV 01/11/25 23:00 02/13/25 13:21 150 MLS/HR Folic Acid 1 mg DAILY PO 01/20/25 10:00 02/13/25 08:58 1 MG Acetaminophen 650 mg Q6HP PRN GT 01/22/25 10:15 02/10/25 13:20 650 MG Micafungin Sodium 100 mg/Sodium Chloride 100 ml @ 100 mls/hr DAILY IV 01/23/25 10:00 02/13/25 11:11 100 MLS/HR Mupirocin 1 applic BID EACHNOSTRI 01/27/25 22:00 02/01/25 21:59 UNV Acetylcysteine 200 mg Q6HR NEB 02/06/25 12:00 02/13/25 11:21 200 MG Ipratropium [place] 0.5 mg Q6HR NEB 02/06/25 12:00 02/13/25 11:21 0.5 MG Lorazepam 1 mg ONCE PRN IV 02/06/25 10:45 Levalbuterol HCl 1.25 mg Q6HR NEB 02/06/25 18:00 02/13/25 11:21 1.25 MG Levetiracetam 500 mg BID PO 02/06/25 22:00 02/13/25 08:58 500 MG Enoxaparin Sodium 70 mg Q12HR SC 02/06/25 22:00 02/13/25 08:48 70 MG Fentanyl 75 mcg Q72H TD 02/08/25 08:15 02/11/25 09:38 75 MCG Acetaminophen/ Hydrocodone Bitart 1 tab Q4HPRN PRN PO 02/10/25 13:45 02/13/25 13:22 1 TAB Ondansetron HCl 4 mg Q4HPRN PRN IV 02/12/25 05:00 02/13/25 13:22 4 MG Propranolol HCl 20 mg TID PO 02/12/25 22:00 02/13/25 13:37 20 MG Lorazepam 1 mg Q8HP PRN IV 02/12/25 16:15 02/13/25 05:09 1 MG Levofloxacin/ Dextrose 100 ml @ 100 mls/hr DAILY IV 02/13/25 10:00 02/13/25 09:01 100 MLS/HR Sucralfate 1 gm BID@0600,2200 PO 02/12/25 17:15 02/13/25 05:09 1 GM Lactulose 30 ml DAILY PO 02/13/25 10:00 02/13/25 09:31 30 ML Pantoprazole Sodium 40 mg BID@0600,1700 PO 02/13/25 17:00 Olanzapine 5 mg DAILY PO 02/14/25 10:00 Enteral Nutritional Formula 240 ml TIDWM PO 02/13/25 18:00 Examination Patient sitting comfortably in the chair, out of bed, well conversational, no acute distress General: Well-built, afebrile, palor, mucosae are moist Cardiovascular: Tachycardic but Regular S1 and S2. No murmurs, gallops or rubs. No JVD elevation. No pedal edema Respiratory: Normal B/L air entry 10 L NC bilateral equal air entry Abdomen: Soft, nontender, nondistended, normoactive bowel sounds, no rebound tenderness, no organomegaly, no masses Genitourinary: Navarrete dc MSK/skin: Patient is ambulating Neurological: Pupils are isocoric and reactive. Psych/Mental Status: A/Ox3 laboratory and microbiology Laboratory Tests 02/13/25 04:27 Test 02/13/25 04:27 Range/Units Serum Glucose 98 74-106 mg/dL Microbiology Date/Time Source Procedure Growth Status 02/07/25 02:15 Urine - Navarrete Port Urine Culture - Final Complete 01/22/25 18:44 Blood Blood Culture - Final NO GROWTH AFTER 5 DAYS OF INCUBATION. Complete 01/18/25 10:40 Sputum Gram Stain - Final Complete 01/18/25 10:40 Sputum Respiratory Culture - Final Complete 01/05/25 08:15 Other Abscess Gram Stain - Final Complete 01/05/25 08:15 Other Abscess Anaerobic Culture - Final Complete 01/05/25 08:15 Aerobic Culture - Final Enterococcus faecium - VRE Complete 01/05/25 08:02 Peritoneal Fluid Gram Stain - Final Complete 01/05/25 08:02 Peritoneal Fluid Anaerobic Culture - Final Complete 01/05/25 08:02 Aerobic Culture - Final Enterococcus faecium - VRE Citrobacter freundii Vanc Resistant Enterococcus Complete Labs and/or images reviewed: Labs reviewed by me, Image(s) reviewed by me Problem List/Assessment/Plan Problem List/Assessment/Plan NEURO: Acute metabolic encephalopathy likely due to in-hospital delirium History of epilepsy Wheelchair-bound 2022 status post fall Continue valproate twice daily Diphenhydramine q.6 p.r.n. for agitation, Librium 25 mg TID Keppra b.i.d. Olanzapine 10 mg daily CARDIOVASCULAR: Septic shock likely due to intra-abdominal sepsis Sinus tachycardia Propranolol 20mg tid PULMONARY: Acute hypoxic respiratory failure status post intubation status post tracheostomy 01/05 Likely acute respiratory distress syndrome-non cardiogenic pulmonary edema- resolving Pleural effusion status post thoracocentesis Nebulized treatments daily GASTROINTESTINAL: Intractable pain secondary to Intra-abdominal sepsis with VRE and peritonitis status post exploratory laparotomy x2 01/05 and 12/27 Status post bowel resection and colostomy Intra-abdominal abscess Splenic fluid collection Pantoprazole 40 mg PO zyvox PO 600 bid, levaquin IV daily 02/12 DC micafungin daily Fentanyl patch 75 mcg, deescalate GENITOURINARY: DC Navarrete catheter METABOLIC: Hypoalbuminemia Moderate to severe protein calorie malnutrition HEMATOLOGY/ONCOLOGY Right upper extremity DVT 01/09 Left upper extremity superficial thrombosis Anemia likely normocytic status post 3 packed RBC transfusion Thrombocytosis Lovenox 70 mg b.i.d. to eliquis 02/13 INFECTIOUS DISEASE: Intra-abdominal sepsis with VRE zyvox PO 600 bid, levaquin IV daily 02/12 DC micafungin daily MUSCULOSKELETAL Chronic open dependence Thiamine and folic acid daily DIET: Clear liquid diet Lovenox therapeutic dose GI prophylaxis: Protonix Code status: Full code LINES/DRAINS/ACCESS: IV access: Left femoral central line 01/28 till 02/11, peripheral IV is inserted Drips: Tube feedings Navarrete catheter dc 02/11 DISPOSITION: ICU PT eval Patient's status discussed with Family Critical care time spent more than 63 minutes, including patient care, chart review, and updating the family. Excluding any procedures Case discussed with Dr. Pérez Plan discussed with: Patient, Other (brother at bedside) My Orders My Orders Orders - VALERIE HESTER Procedure Category Date Status Time Lactulose Oral PHA 02/13/25 In Process 10:00 Pantoprazole Tablet PHA 02/13/25 In Process (Protonix Tablet) 17:00 * Fruit Buying Grader CONS 02/13/25 Transmitted Consult Nutritional PHA 02/13/25 In Process Supplements (Ensure 18:00 Dietary Evaluation Review Comments: 1. TF: Vital AF@50ml/hr (90g protein, 1440kcal 973 free water) meeting Protein needs 83%, energy needs 80%. 2. TPN per pharmacy meeting 75% of his needs if TF not feasible or NPO>7 days. 3. Diet as tolerated per TECHNOLOGY STRATEGIST eval when off Vent Expected Outcomes/Goals: Preventing catabolism Date of Service: Feb 13, 2025 Billing Provider: MARIELA PÉREZ MD Common Visit Codes: [id number] CARE 30-74 MIN VALERIE HESTER Feb 13, 2025 17:43 MARIELA PÉREZ MD Feb 14, 2025 12:23
[2025-02-13] MEDS: Ensure HIGH Protein Chocolate 8oz Bottle PO SCH (18:00)
[2025-02-13] MEDS: ENSURE CLEAR Mixed Berry 8oz Carton PO SCH (22:02)
[2025-02-13] MEDS: VALPROIC ACID 250 MG/5 ML ORAL SOLN PO SCH (22:03)
[2025-02-13] MEDS: APIXABAN 5 MG TAB PO SCH (22:04)
[2025-02-13] MEDS: LINEZOLID 600MG TABLET PO SCH (22:05)
[2025-02-14] VITALS (30 sets, daily range): BP systolic 108–155; BP diastolic 57–85; PULSE 86–135; RESP 16–36; TEMP 97.6–99; O2SAT 92–100
[2025-02-14 03:57] LABS: Mean Corpuscular Volume 82.9 fL (80.0-100.0)
[2025-02-14 04:00] LABS: Hematocrit 31.2 % (41.0-53.0); Hemoglobin 10.8 g/dL (13.5-17.5); Mean Corpuscular Hemoglobin 28.7 pg (28.0-32.0); Nucleated Red Blood Cells % 0.0 %
[2025-02-14 04:02] LABS: Alanine Aminotransferase 12 U/L (7-40); Albumin 3.9 g/dL (3.2-4.8); Alkaline Phosphatase 90 U/L (46-116); Anion Gap 12 (5-15); BUN/Creatinine Ratio 11.7 (10.0-20.0); Bilirubin, Total 0.4 mg/dL (0.2-1.0); Calcium 9.4 mg/dL (8.7-10.4); Carbon Dioxide 25 mmol/L (20-31); Chloride 100 mmol/L (98-107); Glucose 95 mg/dL (74-106); Sodium 137 mmol/L (136-145); Total Protein 7.2 g/dL (5.7-8.2)
[2025-02-14 04:17] LABS: Blood Urea Nitrogen 7 mg/dL (9-23); Magnesium 1.5 mg/dL (1.6-2.6); Potassium 3.4 mmol/L (3.5-5.1)
[2025-02-14] MEDS: POTASSIUM CHL 20MEQ/100ML 100 ML IV ONE (07:00)
[2025-02-14] MEDS: MAGNESIUM SULFATE 1GM/100ML 100 ML IV ONE (07:21)
[2025-02-14] MEDS: POTASSIUM EFFERVESENT TAB 25 MEQ PO ONE (08:47)
[2025-02-14] MEDS: ERGOCALCIFEROL 50,000 UNIT(1.25MG) CAP PO SCH (08:50)
[2025-02-14] MEDS: OLANZapine 5 MG TAB PO SCH (10:33)
--- NOTE | 2025-02-14 11:04 | DVHPN2 ---
Progress Note Date Seen: Feb 14, 2025 Resident Creating Document: ROBYN CARRANZA RESIDENT Has the PT tested + for MRSA If YES, has PT been informed?: No Medical Necessity Reason Pt with a Central, PICC or Fol: No Reason for navarrete catheter: Strict I&O Subjective Review of Systems Patient is a 44-year-old male with past medical history of epilepsy, chronic pain syndrome, gout, who recently came due to constipation, was subsequently diagnosed with acute peritonitis along with intra-abdominal sepsis, subsequently patient underwent expiratory laparotomy on 12/27/2024 and then a repeat laparotomy on 01/05/2025. Intra-abdominal sepsis with Citrobacter and VRE, perisplenic collection was noted. Patient is s/p colostomy and tracheostomy. Patient seen and examined at bedside Diet advanced to pureed 350 mL colostomy output overnight Continues to report anxiety Currently on room air Objective vital signs Vital Sign Date Time Temp Pulse Resp B/P (MAP) Pulse Ox O2 Delivery O2 Flow Rate FiO2 02/14/25 08:00 98 26 97 Room Air* 0 21 02/14/25 06:00 131/69 (89) 02/14/25 05:00 98.2 98.2 Total Intake and Output 02/13/25 02/13/25 02/14/25 15:00 23:00 07:00 Intake Total 552.5 ml 130 ml 200 ml Output Total 1025 ml 750 ml Balance 552.5 ml -895 ml -550 ml medications Current Medications Medications Dose Ordered Sig/Sherron Route Start Time Stop Time Status Last Admin Dose Admin Valproate Sodium 250 mg/Sodium Chloride 52.5 ml @ 52.5 mls/hr BID IV 12/17/24 22:00 Hold 02/13/25 10:07 52.5 MLS/HR Sodium Chloride 40 meq/Potassium Chloride 40 meq/ Potassium Phosphate 11 meq/ Calcium Gluconate 2.3 meq/Magnesium Sulfate 8 meq/ Multivitamins 10 ml/Chromium/ Copper/Manganese/ Zinc 1 ml/Amino Acids/Dextrose/ Purified Water 1,450.4462 ml @ 60 mls/hr [id number] IV 12/26/24 22:00 12/27/24 21:59 Cancel Sodium Chloride 10 ml QSHIFT@10,22 IV 12/27/24 22:00 02/14/25 10:33 10 ML Artificial Tears 1 drop Q6HP PRN EACHEYE 7/12/25 23:45 01/06/25 09:00 1 DROP Ketamine HCl 50 mg [id number] PRN IV 01/04/25 15:00 01/05/25 07:00 Cancel Sodium Chloride 120 meq/Potassium Chloride 50 meq/ Potassium Acetate 50 meq/Calcium Gluconate 4.65 meq/Magnesium Sulfate 34 meq/ Multivitamins 10 ml/Chromium/ Copper/Manganese/ Zinc 1 ml/Amino Acids/Dextrose/ Purified Water 1,659.5 ml @ 68.108 mls/hr [id number] IV 01/09/25 22:00 01/10/25 21:59 Cancel Sodium Chloride 100 meq/Potassium Chloride 50 meq/ Calcium Gluconate 4.65 meq/ Magnesium Sulfate 34 meq/ Multivitamins 10 ml/Chromium/ Copper/Manganese/ Zinc 1 ml/Sodium Phosphate 20 meq/ Potassium Acetate 50 meq/Amino Acids/Dextrose/ Purified Water 1,659.5 ml @ 68.537 mls/hr [id number] IV 01/09/25 09:30 01/09/25 21:59 Cancel Folic Acid 1 mg DAILY PO 01/20/25 10:00 02/14/25 10:33 1 MG Acetaminophen 650 mg Q6HP PRN GT 01/22/25 10:15 02/10/25 13:20 650 MG Mupirocin 1 applic BID EACHNOSTRI 01/27/25 22:00 02/01/25 21:59 UNV Acetylcysteine 200 mg Q6HR NEB 02/06/25 12:00 02/14/25 05:48 200 MG Ipratropium [place] 0.5 mg Q6HR NEB 02/06/25 12:00 02/14/25 05:48 0.5 MG Lorazepam 1 mg ONCE PRN IV 02/06/25 10:45 Levalbuterol HCl 1.25 mg Q6HR NEB 02/06/25 18:00 02/14/25 05:48 1.25 MG Levetiracetam 500 mg BID PO 02/06/25 22:00 02/14/25 10:33 500 MG Fentanyl 75 mcg Q72H TD 02/08/25 08:15 02/14/25 08:15 75 MCG Acetaminophen/ Hydrocodone Bitart 1 tab Q4HPRN PRN PO 02/10/25 13:45 02/14/25 09:30 1 TAB Ondansetron HCl 4 mg Q4HPRN PRN IV 02/12/25 05:00 02/13/25 21:44 4 MG Propranolol HCl 20 mg TID PO 02/12/25 22:00 02/14/25 05:32 20 MG Lorazepam 1 mg Q8HP PRN IV 02/12/25 16:15 02/14/25 05:44 1 MG Levofloxacin/ Dextrose 100 ml @ 100 mls/hr DAILY IV 02/13/25 10:00 02/14/25 10:33 100 MLS/HR Sucralfate 1 gm BID@0600,2200 PO 02/12/25 17:15 02/14/25 05:31 1 GM Lactulose 30 ml DAILY PO 02/13/25 10:00 02/14/25 10:33 30 ML Pantoprazole Sodium 40 mg BID@0600,1700 PO 02/13/25 17:00 02/14/25 05:32 40 MG Olanzapine 5 mg DAILY PO 02/14/25 10:00 02/14/25 10:33 5 MG Enteral Nutritional Formula 240 ml TIDWM PO 02/13/25 18:00 Hold Apixaban 10 mg BID PO 02/13/25 22:00 02/20/25 21:59 02/14/25 10:33 10 MG Apixaban 5 mg BID PO 02/21/25 10:00 Linezolid 600 mg BID PO 02/13/25 22:00 02/14/25 10:34 600 MG Valproate Sodium 250 mg BID PO 02/13/25 22:00 02/14/25 10:33 250 MG Enteral Nutritional Formula 240 ml TIDWM PO 02/13/25 18:00 02/14/25 08:00 240 ML Ergocalciferol 50,000 unit Q7D PO 02/14/25 07:30 02/14/25 08:50 50,000 UNIT Gabapentin 100 mg TID PO 02/14/25 14:00 UNV Examination Patient sitting comfortably in the chair, in bed bed, well conversational, mild distress, tremulousness noted likely due to anxiety General: Well-built, afebrile, palor, mucosae are moist Cardiovascular: Tachycardic but Regular S1 and S2. No murmurs, gallops or rubs. No JVD elevation. No pedal edema Respiratory: Normal B/L air entry 10 L NC bilateral equal air entry Abdomen: Soft, nontender, nondistended, normoactive bowel sounds, no rebound tenderness, no organomegaly, no masses. Colostomy noted right abdomen, appropriately draining Genitourinary: Navarrete seen MSK/skin: Patient is ambulating Neurological: Pupils are isocoric and reactive. Psych/Mental Status: A/Ox3 laboratory and microbiology Laboratory Tests 02/14/25 03:07 Test 02/14/25 03:07 Range/Units Serum Glucose 95 74-106 mg/dL Microbiology Date/Time Source Procedure Growth Status 02/07/25 02:15 Urine - Navarrete Port Urine Culture - Final Complete 01/22/25 18:44 Blood Blood Culture - Final NO GROWTH AFTER 5 DAYS OF INCUBATION. Complete 01/18/25 10:40 Sputum Gram Stain - Final Complete 01/18/25 10:40 Sputum Respiratory Culture - Final Complete 01/05/25 08:15 Other Abscess Gram Stain - Final Complete 01/05/25 08:15 Other Abscess Anaerobic Culture - Final Complete 01/05/25 08:15 Aerobic Culture - Final Enterococcus faecium - VRE Complete 01/05/25 08:02 Peritoneal Fluid Gram Stain - Final Complete 01/05/25 08:02 Peritoneal Fluid Anaerobic Culture - Final Complete 01/05/25 08:02 Aerobic Culture - Final Enterococcus faecium - VRE Citrobacter freundii Vanc Resistant Enterococcus Complete Labs and/or images reviewed: Labs reviewed by me, Image(s) reviewed by me Problem List/Assessment/Plan Problem List/Assessment/Plan Acute peritonitis S/P laparotomy with bowel resection with colostomy and abscess drainage Intra-abdominal sepsis, VRE/Citrobacter peritonitis Splenic fluid collection; CT abdomen pelvis from 01/25/2025: Trace ascites with component of loculation over the anterior lower abdomen left lateral upper abdomen. 6.1 x 1.5 x 11 cm loculated fluid over the left upper abdominal quadrant lateral to the spleen with a Left mid to lower abdominal approach drainage catheter terminating over the inferior portion of the fluid collection. The loculated fluid are marginally decreased in size from prior imaging. Sigmoid colon injury Acute hypoxic respiratory failure, s/p extubation with trach collar Constipation New onset heartburn/GERD Plan: Increased IV Protonix 40 mg 2 b.i.d. Added Carafate 1 g b.i.d. Monitor colostomy output for volume, consistency and viability Continue antibiotics Swallow evaluation Advanced to pureed diet. Thank you so much for the opportunity to consult on your patient. GI team will follow the patient. In case of any questions or concerns please feel free to reach out. Plan discussed with Dr. Bailey Plan discussed with: Patient, Other (RN) Dietary Evaluation Review Comments: 1. TF: Vital AF@50ml/hr (90g protein, 1440kcal 973 free water) meeting Protein needs 83%, energy needs 80%. 2. TPN per pharmacy meeting 75% of his needs if TF not feasible or NPO>7 days. 3. Diet as tolerated per BILLET SHEARER eval when off Vent Expected Outcomes/Goals: Preventing catabolism ROBYN CARRANZA RESIDENT Feb 14, 2025 11:04
[2025-02-14] MEDS ORDERED: GABAPENTIN 100 MG CAP PO SCH (14:00)
[2025-02-14] MEDS: GABAPENTIN 100 MG CAP PO SCH (15:42)
[2025-02-14] MEDS: levoFLOXacin 250 MG TAB PO ONE (15:42)
[2025-02-14] MEDS: LORazepam 2MG/ML-1ML VIAL IV PRN (16:32)
--- NOTE | 2025-02-14 17:40 | DVHPNRES ---
Progress Note Date Seen: Feb 14, 2025 Resident Creating Document: VALERIE HESTER RESIDENT Has the PT tested + for MRSA If YES, has PT been informed?: No Medical Necessity Reason Pt with a Central, PICC or Fol: No Reason for navarrete catheter: Strict I&O Subjective Review of Systems This is a 44-year-old male with a epilepsy, chronic pain syndrome on opiates, gout who is hospital stay has been prolonged secondary to acute peritonitis, intra-abdominal sepsis status post exploratory laparotomy 12/27 and repeated on 01/05, intra-abdominal sepsis with Citrobacter and VRE, perisplenic collection, status post colostomy and tracheostomy 01/05 and a right upper arm DVT 01/09 02/11 - Overnight, patient is afebrile, tachycardic into 120s but Sinus, tachypneic intermittently, normotensive, on TPs at 10 L with 35% FiO2. Urine output 1400, stool output 2-5 cc from colostomy. Patient is sitting in the chair comfortably, CBC stable, CMP unremarkable, started clear liquid diet. DC Precedex today. dc navarrete 02/13 - patient seen, axo3, onto chair, on cl liq diet, transitioning to eliquis, , restraining bands for PT, meds to po, dc micafungin, zyvox PO, ensure added 02/14 - patient seen and examined, reports neuropathic pain, started gabapentin 300 mg TID, Levaquin since to p.o.. Started pureed diet. Trach downsized to 4.0 shiley, brief episode of desaturation to 88, improved on 5 L Objective vital signs Vital Sign Date Time Temp Pulse Resp B/P (MAP) Pulse Ox O2 Delivery O2 Flow Rate FiO2 02/14/25 16:00 115 02/14/25 16:00 17 98 Room Air* 0 21 02/14/25 11:00 119/76 (90) 02/14/25 08:00 99.0 99.0 Total Intake and Output 02/13/25 02/13/25 02/14/25 15:00 23:00 07:00 Intake Total 552.5 ml 130 ml 200 ml Output Total 1025 ml 750 ml Balance 552.5 ml -895 ml -550 ml medications Current Medications Medications Dose Ordered Sig/Sherron Route Start Time Stop Time Status Last Admin Dose Admin Sodium Chloride 40 meq/Potassium Chloride 40 meq/ Potassium Phosphate 11 meq/ Calcium Gluconate 2.3 meq/Magnesium Sulfate 8 meq/ Multivitamins 10 ml/Chromium/ Copper/Manganese/ Zinc 1 ml/Amino Acids/Dextrose/ Purified Water 1,450.4462 ml @ 60 mls/hr [id number] IV 12/26/24 22:00 12/27/24 21:59 Cancel Sodium Chloride 10 ml QSHIFT@10,22 IV 12/27/24 22:00 02/14/25 10:33 10 ML Artificial Tears 1 drop Q6HP PRN EACHEYE 12/29/24 23:45 01/06/25 09:00 1 DROP Ketamine HCl 50 mg [id number] PRN IV 01/04/25 15:00 01/05/25 07:00 Cancel Sodium Chloride 120 meq/Potassium Chloride 50 meq/ Potassium Acetate 50 meq/Calcium Gluconate 4.65 meq/Magnesium Sulfate 34 meq/ Multivitamins 10 ml/Chromium/ Copper/Manganese/ Zinc 1 ml/Amino Acids/Dextrose/ Purified Water 1,659.5 ml @ 68.108 mls/hr [id number] IV 01/09/25 22:00 01/10/25 21:59 Cancel Sodium Chloride 100 meq/Potassium Chloride 50 meq/ Calcium Gluconate 4.65 meq/ Magnesium Sulfate 34 meq/ Multivitamins 10 ml/Chromium/ Copper/Manganese/ Zinc 1 ml/Sodium Phosphate 20 meq/ Potassium Acetate 50 meq/Amino Acids/Dextrose/ Purified Water 1,659.5 ml @ 68.537 mls/hr [id number] IV 01/09/25 09:30 01/09/25 21:59 Cancel Folic Acid 1 mg DAILY PO 01/20/25 10:00 02/14/25 10:33 1 MG Acetaminophen 650 mg Q6HP PRN GT 01/22/25 10:15 02/10/25 13:20 650 MG Mupirocin 1 applic BID EACHNOSTRI 01/27/25 22:00 02/01/25 21:59 UNV Acetylcysteine 200 mg Q6HR NEB 02/06/25 12:00 02/14/25 11:51 200 MG Ipratropium [place] 0.5 mg Q6HR NEB 02/06/25 12:00 02/14/25 11:51 0.5 MG Lorazepam 1 mg ONCE PRN IV 02/06/25 10:45 02/14/25 16:32 1 MG Levalbuterol HCl 1.25 mg Q6HR NEB 02/06/25 18:00 02/14/25 11:51 1.25 MG Levetiracetam 500 mg BID PO 02/06/25 22:00 02/14/25 10:33 500 MG Fentanyl 75 mcg Q72H TD 02/08/25 08:15 02/14/25 08:15 75 MCG Acetaminophen/ Hydrocodone Bitart 1 tab Q4HPRN PRN PO 02/10/25 13:45 02/14/25 09:30 1 TAB Ondansetron HCl 4 mg Q4HPRN PRN IV 02/12/25 05:00 02/13/25 21:44 4 MG Lorazepam 1 mg Q8HP PRN IV 02/12/25 16:15 02/14/25 05:44 1 MG Sucralfate 1 gm BID@0600,2200 PO 02/12/25 17:15 02/14/25 05:31 1 GM Lactulose 30 ml DAILY PO 02/13/25 10:00 02/14/25 10:33 30 ML Pantoprazole Sodium 40 mg BID@0600,1700 PO 02/13/25 17:00 02/14/25 05:32 40 MG Enteral Nutritional Formula 240 ml TIDWM PO 02/13/25 18:00 Hold Linezolid 600 mg BID PO 02/13/25 22:00 02/14/25 10:34 600 MG Valproate Sodium 250 mg BID PO 02/13/25 22:00 02/14/25 10:33 250 MG Enteral Nutritional Formula 240 ml TIDWM PO 02/13/25 18:00 02/14/25 12:00 240 ML Ergocalciferol 50,000 unit Q7D PO 02/14/25 07:30 02/14/25 08:50 50,000 UNIT Propranolol HCl 20 mg BID PO 02/14/25 22:00 Apixaban 5 mg BID PO 02/14/25 22:00 Gabapentin 300 mg TID PO 02/14/25 14:00 02/14/25 15:42 300 MG Levofloxacin 750 mg DAILY PO 02/15/25 10:00 Examination Patient sitting comfortably in the chair, out of bed, well conversational, no acute distress General: Well-built, afebrile, palor, mucosae are moist Cardiovascular: Tachycardic but Regular S1 and S2. No murmurs, gallops or rubs. No JVD elevation. No pedal edema Respiratory: Normal B/L air entry 2 L NC bilateral equal air entry Abdomen: Soft, nontender, nondistended, normoactive bowel sounds, no rebound tenderness, no organomegaly, no masses Genitourinary: Navarrete dc MSK/skin: Patient is ambulating Neurological: Pupils are isocoric and reactive. Psych/Mental Status: A/Ox3 laboratory and microbiology Laboratory Tests 02/14/25 03:07 Test 02/14/25 03:07 Range/Units Serum Glucose 95 74-106 mg/dL Microbiology Date/Time Source Procedure Growth Status 02/07/25 02:15 Urine - Navarrete Port Urine Culture - Final Complete 01/22/25 18:44 Blood Blood Culture - Final NO GROWTH AFTER 5 DAYS OF INCUBATION. Complete 01/18/25 10:40 Sputum Gram Stain - Final Complete 01/18/25 10:40 Sputum Respiratory Culture - Final Complete 01/05/25 08:15 Other Abscess Gram Stain - Final Complete 01/05/25 08:15 Other Abscess Anaerobic Culture - Final Complete 01/05/25 08:15 Aerobic Culture - Final Enterococcus faecium - VRE Complete 01/05/25 08:02 Peritoneal Fluid Gram Stain - Final Complete 01/05/25 08:02 Peritoneal Fluid Anaerobic Culture - Final Complete 01/05/25 08:02 Aerobic Culture - Final Enterococcus faecium - VRE Citrobacter freundii Vanc Resistant Enterococcus Complete Labs and/or images reviewed: Labs reviewed by me, Image(s) reviewed by me Problem List/Assessment/Plan Problem List/Assessment/Plan NEURO: Acute metabolic encephalopathy likely due to in-hospital delirium History of epilepsy Wheelchair-bound 2022 status post fall Continue valproate twice daily Diphenhydramine q.6 p.r.n. for agitation, Librium 25 mg TID Keppra b.i.d. Olanzapine 10 mg daily CARDIOVASCULAR: Septic shock likely due to intra-abdominal sepsis Sinus tachycardia Propranolol 20mg tid PULMONARY: Acute hypoxic respiratory failure status post intubation status post tracheostomy 01/05 downsized to 6 Likely acute respiratory distress syndrome-non cardiogenic pulmonary edema- resolving Pleural effusion status post thoracocentesis Nebulized treatments daily GASTROINTESTINAL: Intractable pain secondary to Intra-abdominal sepsis with VRE and peritonitis status post exploratory laparotomy x2 01/05 and 12/27 Status post bowel resection and colostomy Intra-abdominal abscess Splenic fluid collection Pantoprazole 40 mg PO zyvox PO 600 bid, levaquin IV daily 02/12 switched to p.o. 02/14 DC micafungin daily Fentanyl patch 75 mcg, deescalate GENITOURINARY: DC Navarrete catheter METABOLIC: Hypoalbuminemia Moderate to severe protein calorie malnutrition Ensure TID HEMATOLOGY/ONCOLOGY Right upper extremity DVT 01/09 Left upper extremity superficial thrombosis Anemia likely normocytic status post 3 packed RBC transfusion Thrombocytosis Lovenox 70 mg b.i.d. to eliquis 02/13 INFECTIOUS DISEASE: Intra-abdominal sepsis with VRE zyvox PO 600 bid, levaquin IV daily 02/12 DC micafungin daily MUSCULOSKELETAL Chronic open dependence Thiamine and folic acid daily Vitamin-D deficiency Supplemented DIET: Pureed diet DVT prophylaxis, Eliquis GI prophylaxis: Protonix Code status: Full code LINES/DRAINS/ACCESS: IV access: Left femoral central line 01/28 till 02/11, peripheral IV is inserted Drips: Tube feedings Navarrete catheter dc 02/11 DISPOSITION: ICU PT eval Patient's status discussed with Family Critical care time spent more than 81 minutes, including downsizing tracheostomy, patient care, chart review, and updating the family. Excluding any procedures Case discussed with Dr. Pérez Plan discussed with: Patient My Orders My Orders Orders - VALERIE HESTER RESIDENT Procedure Category Date Status Time Pureed DIET 02/14/25 Transmitted Breakfast Ergocalciferol PHA 02/14/25 In Process (Vitamin D 50,000 07:30 Apixaban (Eliquis) PHA 02/14/25 In Process 22:00 Gabapentin Capsule PHA 02/14/25 In Process (Neurontin Capsule) 14:00 Levofloxacin Tablet PHA 02/15/25 In Process (Levaquin Tablet) 10:00 Dietary Evaluation Review Comments: 1. TF: Vital AF@50ml/hr (90g protein, 1440kcal 973 free water) meeting Protein needs 83%, energy needs 80%. 2. TPN per pharmacy meeting 75% of his needs if TF not feasible or NPO>7 days. 3. Diet as tolerated per [employer]CH[employer]IC eval when off Vent Expected Outcomes/Goals: Preventing catabolism Date of Service: Feb 14, 2025 Billing Provider: MARIELA PÉREZ MD Common Visit Codes: [id number] CARE 30-74 MIN, [id number] CARE-EACH +30MIN VALERIE HESTER RESIDENT Feb 14, 2025 17:40 MARIELA PÉREZ MD Feb 18, 2025 15:43
[2025-02-14] MEDS: APIXABAN 5 MG TAB PO SCH (21:38)
[2025-02-14] MEDS: PROPRANOLOL HCL 20 MG TAB PO SCH (21:39)
[2025-02-15] VITALS (31 sets, daily range): BP systolic 94–138; BP diastolic 45–84; PULSE 96–118; RESP 14–33; TEMP 98.1–99.8; O2SAT 92–100
[2025-02-15 03:47] LABS: Hemoglobin 10.0 g/dL (13.5-17.5)
[2025-02-15 03:50] LABS: Hematocrit 29.5 % (41.0-53.0); Mean Corpuscular Hemoglobin 28.2 pg (28.0-32.0); Mean Corpuscular Volume 82.9 fL (80.0-100.0); Nucleated Red Blood Cells % 0.1 %
[2025-02-15 03:52] LABS: Alanine Aminotransferase 13 U/L (7-40); Albumin 3.9 g/dL (3.2-4.8); Alkaline Phosphatase 86 U/L (46-116); Anion Gap 10 (5-15); BUN/Creatinine Ratio 10.8 (10.0-20.0); Calcium 9.1 mg/dL (8.7-10.4); Carbon Dioxide 27 mmol/L (20-31); Chloride 99 mmol/L (98-107); Glucose 91 mg/dL (74-106); Magnesium 1.6 mg/dL (1.6-2.6); Potassium 3.9 mmol/L (3.5-5.1); Total Protein 6.9 g/dL (5.7-8.2)
[2025-02-15 03:53] LABS: Bilirubin, Total 0.3 mg/dL (0.2-1.0)
[2025-02-15 03:58] LABS: Blood Urea Nitrogen 7 mg/dL (9-23); Sodium 136 mmol/L (136-145)
[2025-02-15] MEDS: MAGNESIUM SULFATE 1GM/100ML 100 ML IV SCH (05:45)
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
[2025-02-15] MEDS: levETIRAcetam 500 MG TAB PO SCH (10:15)
[2025-02-15] MEDS: PSYLLIUM PWD 5.8GM PKG GT SCH (10:30)
[2025-02-15] MEDS: levoFLOXacin 250 MG TAB PO SCH (10:38)
[2025-02-15 10:44] LABS: Iron 26.0 ug/dL (65-175); Total Iron Binding Capacity 207.0 ug/dL (250-425)
--- NOTE | 2025-02-15 11:18 | DVHPN2 ---
Progress Note Date Seen: Feb 15, 2025 Resident Creating Document: ROBYN CARRANZA RESIDENT Has the PT tested + for MRSA If YES, has PT been informed?: No Medical Necessity Reason Pt with a Central, PICC or Fol: No Reason for navarrete catheter: Strict I&O Subjective Review of Systems Patient is a 44-year-old male with past medical history of epilepsy, chronic pain syndrome, gout, who recently came due to constipation, was subsequently diagnosed with acute peritonitis along with intra-abdominal sepsis, subsequently patient underwent expiratory laparotomy on 12/27/2024 and then a repeat laparotomy on 01/05/2025. Intra-abdominal sepsis with Citrobacter and VRE, perisplenic collection was noted. Patient is s/p colostomy and tracheostomy. Patient seen and examined at bedside Diet advanced to pureed which the patient is tolerating well Overnight 10 mL colostomy output, however, at the time of my assessment colostomy bag was half full and patient tolerated full breakfast Denies nausea, vomiting, heartburn. Objective vital signs Vital Sign Date Time Temp Pulse Resp B/P (MAP) Pulse Ox O2 Delivery O2 Flow Rate FiO2 02/15/25 10:31 112 120/101 02/15/25 10:00 22 98 02/15/25 08:00 Room Air* 0 21 02/15/25 08:00 98.8 98.8 Total Intake and Output 02/14/25 02/14/25 02/15/25 15:00 23:00 07:00 Intake Total 100 ml 500 ml 550 ml Output Total 975 ml 335 ml Balance 100 ml -475 ml 215 ml medications Current Medications Medications Dose Ordered Sig/Sherron Route Start Time Stop Time Status Last Admin Dose Admin Sodium Chloride 40 meq/Potassium Chloride 40 meq/ Potassium Phosphate 11 meq/ Calcium Gluconate 2.3 meq/Magnesium Sulfate 8 meq/ Multivitamins 10 ml/Chromium/ Copper/Manganese/ Zinc 1 ml/Amino Acids/Dextrose/ Purified Water 1,450.4462 ml @ 60 mls/hr [id number] IV 12/26/24 22:00 12/27/24 21:59 Cancel Sodium Chloride 10 ml QSHIFT@10,22 IV 12/27/24 22:00 02/15/25 10:51 10 ML Artificial Tears 1 drop Q6HP PRN EACHEYE 12/29/24 23:45 01/06/25 09:00 1 DROP Ketamine HCl 50 mg [id number] PRN IV 01/04/25 15:00 01/05/25 07:00 Cancel Sodium Chloride 120 meq/Potassium Chloride 50 meq/ Potassium Acetate 50 meq/Calcium Gluconate 4.65 meq/Magnesium Sulfate 34 meq/ Multivitamins 10 ml/Chromium/ Copper/Manganese/ Zinc 1 ml/Amino Acids/Dextrose/ Purified Water 1,659.5 ml @ 68.108 mls/hr [id number] IV 01/09/25 22:00 01/10/25 21:59 Cancel Sodium Chloride 100 meq/Potassium Chloride 50 meq/ Calcium Gluconate 4.65 meq/ Magnesium Sulfate 34 meq/ Multivitamins 10 ml/Chromium/ Copper/Manganese/ Zinc 1 ml/Sodium Phosphate 20 meq/ Potassium Acetate 50 meq/Amino Acids/Dextrose/ Purified Water 1,659.5 ml @ 68.537 mls/hr [id number] IV 01/09/25 09:30 01/09/25 21:59 Cancel Folic Acid 1 mg DAILY PO 01/20/25 10:00 02/15/25 10:30 1 MG Acetaminophen 650 mg Q6HP PRN GT 01/22/25 10:15 02/10/25 13:20 650 MG Mupirocin 1 applic BID EACHNOSTRI 01/27/25 22:00 02/01/25 21:59 UNV Acetylcysteine 200 mg Q6HR NEB 02/06/25 12:00 02/15/25 05:31 200 MG Ipratropium [place] 0.5 mg Q6HR NEB 02/06/25 12:00 02/15/25 05:31 0.5 MG Lorazepam 1 mg ONCE PRN IV 02/06/25 10:45 02/14/25 16:32 1 MG Levalbuterol HCl 1.25 mg Q6HR NEB 02/06/25 18:00 02/15/25 05:30 1.25 MG Fentanyl 75 mcg Q72H TD 02/08/25 08:15 02/14/25 08:15 75 MCG Acetaminophen/ Hydrocodone Bitart 1 tab Q4HPRN PRN PO 02/10/25 13:45 02/15/25 10:43 1 TAB Ondansetron HCl 4 mg Q4HPRN PRN IV 02/12/25 05:00 02/13/25 21:44 4 MG Lorazepam 1 mg Q8HP PRN IV 02/12/25 16:15 02/14/25 21:47 1 MG Sucralfate 1 gm BID@0600,2200 PO 02/12/25 17:15 02/15/25 05:46 1 GM Lactulose 30 ml DAILY PO 02/13/25 10:00 02/15/25 10:30 30 ML Pantoprazole Sodium 40 mg BID@0600,1700 PO 02/13/25 17:00 02/15/25 05:48 40 MG Enteral Nutritional Formula 240 ml TIDWM PO 02/13/25 18:00 Hold Linezolid 600 mg BID PO 02/13/25 22:00 02/15/25 10:30 600 MG Valproate Sodium 250 mg BID PO 02/13/25 22:00 02/15/25 10:30 250 MG Enteral Nutritional Formula 240 ml TIDWM PO 02/13/25 18:00 02/15/25 08:00 240 ML Ergocalciferol 50,000 unit Q7D PO 02/14/25 07:30 02/14/25 08:50 50,000 UNIT Propranolol HCl 20 mg BID PO 02/14/25 22:00 02/15/25 10:31 20 MG Apixaban 5 mg BID PO 02/14/25 22:00 02/15/25 10:31 5 MG Gabapentin 300 mg TID PO 02/14/25 14:00 02/15/25 05:46 300 MG Levofloxacin 750 mg DAILY PO 02/15/25 10:00 02/15/25 10:38 750 MG Psyllium Hydrophilic Mucilloid 1 pkg DAILY GT 02/15/25 10:00 02/15/25 10:30 1 PKG Levetiracetam 750 mg BID PO 02/15/25 10:15 Examination Patient sitting comfortably in the chair, in bed bed, well conversational, mild distress, tremulousness noted likely due to anxiety General: Well-built, afebrile, palor, mucosae are moist Cardiovascular: Tachycardic but Regular S1 and S2. No murmurs, gallops or rubs. No JVD elevation. No pedal edema Respiratory: Normal B/L air entry Abdomen: Soft, nontender, nondistended, normoactive bowel sounds, no rebound tenderness, no organomegaly, no masses. Colostomy noted right abdomen, appropriately draining. Genitourinary: Navarrete seen Neurological: Pupils are isocoric and reactive. Psych/Mental Status: A/Ox3 laboratory and microbiology Laboratory Tests 02/15/25 02:30 Test 02/15/25 02:30 Range/Units Serum Glucose 91 74-106 mg/dL Microbiology Date/Time Source Procedure Growth Status 02/07/25 02:15 Urine - Navarrete Port Urine Culture - Final Complete 01/22/25 18:44 Blood Blood Culture - Final NO GROWTH AFTER 5 DAYS OF INCUBATION. Complete 01/18/25 10:40 Sputum Gram Stain - Final Complete 01/18/25 10:40 Sputum Respiratory Culture - Final Complete 01/05/25 08:15 Other Abscess Gram Stain - Final Complete 01/05/25 08:15 Other Abscess Anaerobic Culture - Final Complete 01/05/25 08:15 Aerobic Culture - Final Enterococcus faecium - VRE Complete 01/05/25 08:02 Peritoneal Fluid Gram Stain - Final Complete 01/05/25 08:02 Peritoneal Fluid Anaerobic Culture - Final Complete 01/05/25 08:02 Aerobic Culture - Final Enterococcus faecium - VRE Citrobacter freundii Vanc Resistant Enterococcus Complete Problem List/Assessment/Plan Problem List/Assessment/Plan Acute peritonitis S/P laparotomy with bowel resection with colostomy and abscess drainage Intra-abdominal sepsis, VRE/Citrobacter peritonitis Splenic fluid collection; CT abdomen pelvis from 01/25/2025: Trace ascites with component of loculation over the anterior lower abdomen left lateral upper abdomen. 6.1 x 1.5 x 11 cm loculated fluid over the left upper abdominal quadrant lateral to the spleen with a Left mid to lower abdominal approach drainage catheter terminating over the inferior portion of the fluid collection. The loculated fluid are marginally decreased in size from prior imaging. Sigmoid colon injury Acute hypoxic respiratory failure, s/p extubation with trach collar Constipation New onset heartburn/GERD Plan: Increased IV Protonix 40 mg 2 b.i.d. Added Carafate 1 g b.i.d. Monitor colostomy output for volume, consistency and viability Continue antibiotics Swallow evaluation Advanced to pureed diet. Thank you so much for the opportunity to consult on your patient. GI team will follow the patient. In case of any questions or concerns please feel free to reach out. Plan discussed with Dr. Bailey Plan discussed with: Patient, Other (RN) Dietary Evaluation Review Comments: 1. TF: Vital AF@50ml/hr (90g protein, 1440kcal 973 free water) meeting Protein needs 83%, energy needs 80%. 2. TPN per pharmacy meeting 75% of his needs if TF not feasible or NPO>7 days. 3. Diet as tolerated per [facility]IST eval when off Vent Expected Outcomes/Goals: Preventing catabolism ROBYN CARRANZA RESIDENT Feb 15, 2025 11:17
--- NOTE | 2025-02-15 15:11 | DVHPNRES ---
Progress Note Date Seen: Feb 15, 2025 Resident Creating Document: VALERIE HESTER RESIDENT Has the PT tested + for MRSA If YES, has PT been informed?: No Medical Necessity Reason Pt with a Central, PICC or Fol: No Reason for navarrete catheter: Strict I&O Subjective Review of Systems This is a 44-year-old male with a epilepsy, chronic pain syndrome on opiates, gout who is hospital stay has been prolonged secondary to acute peritonitis, intra-abdominal sepsis status post exploratory laparotomy 12/27 and repeated on 01/05, intra-abdominal sepsis with Citrobacter and VRE, perisplenic collection, status post colostomy and tracheostomy 01/05 and a right upper arm DVT 01/09 02/11 - Overnight, patient is afebrile, tachycardic into 120s but Sinus, tachypneic intermittently, normotensive, on TPs at 10 L with 35% FiO2. Urine output 1400, stool output 2-5 cc from colostomy. Patient is sitting in the chair comfortably, CBC stable, CMP unremarkable, started clear liquid diet. DC Precedex today. dc navarrete 02/13 - patient seen, axo3, onto chair, on cl liq diet, transitioning to eliquis, , restraining bands for PT, meds to po, dc micafungin, zyvox PO, ensure added 02/14 - patient seen and examined, reports neuropathic pain, started gabapentin 300 mg TID, Levaquin since to p.o.. Started pureed diet. Trach downsized to 4.0 shiley, brief episode of desaturation to 88, improved on 5 L 02/15 - patient seen and examined, onto chair, on room air, PT on board. Objective vital signs Vital Sign Date Time Temp Pulse Resp B/P (MAP) Pulse Ox O2 Delivery O2 Flow Rate FiO2 02/15/25 12:00 20 96 Room Air* 0 21 02/15/25 12:00 105 02/15/25 10:31 120/101 02/15/25 08:00 98.8 98.8 Total Intake and Output 02/14/25 02/14/25 02/15/25 15:00 23:00 07:00 Intake Total 100 ml 500 ml 550 ml Output Total 975 ml 335 ml Balance 100 ml -475 ml 215 ml medications Current Medications Medications Dose Ordered Sig/Sherron Route Start Time Stop Time Status Last Admin Dose Admin Sodium Chloride 40 meq/Potassium Chloride 40 meq/ Potassium Phosphate 11 meq/ Calcium Gluconate 2.3 meq/Magnesium Sulfate 8 meq/ Multivitamins 10 ml/Chromium/ Copper/Manganese/ Zinc 1 ml/Amino Acids/Dextrose/ Purified Water 1,450.4462 ml @ 60 mls/hr [id number] IV 12/26/24 22:00 12/27/24 21:59 Cancel Sodium Chloride 10 ml QSHIFT@10,22 IV 12/27/24 22:00 02/15/25 10:51 10 ML Artificial Tears 1 drop Q6HP PRN EACHEYE 12/29/24 23:45 01/06/25 09:00 1 DROP Ketamine HCl 50 mg [id number] PRN IV 01/04/25 15:00 01/05/25 07:00 Cancel Sodium Chloride 120 meq/Potassium Chloride 50 meq/ Potassium Acetate 50 meq/Calcium Gluconate 4.65 meq/Magnesium Sulfate 34 meq/ Multivitamins 10 ml/Chromium/ Copper/Manganese/ Zinc 1 ml/Amino Acids/Dextrose/ Purified Water 1,659.5 ml @ 68.108 mls/hr [id number] IV 01/09/25 22:00 01/10/25 21:59 Cancel Sodium Chloride 100 meq/Potassium Chloride 50 meq/ Calcium Gluconate 4.65 meq/ Magnesium Sulfate 34 meq/ Multivitamins 10 ml/Chromium/ Copper/Manganese/ Zinc 1 ml/Sodium Phosphate 20 meq/ Potassium Acetate 50 meq/Amino Acids/Dextrose/ Purified Water 1,659.5 ml @ 68.537 mls/hr [id number] IV 01/09/25 09:30 01/09/25 21:59 Cancel Folic Acid 1 mg DAILY PO 01/20/25 10:00 02/15/25 10:30 1 MG Acetaminophen 650 mg Q6HP PRN GT 01/22/25 10:15 02/10/25 13:20 650 MG Mupirocin 1 applic BID EACHNOSTRI 01/27/25 22:00 02/01/25 21:59 UNV Acetylcysteine 200 mg Q6HR NEB 02/06/25 12:00 02/15/25 11:19 200 MG Ipratropium [place] 0.5 mg Q6HR NEB 02/06/25 12:00 02/15/25 11:19 0.5 MG Lorazepam 1 mg ONCE PRN IV 02/06/25 10:45 02/14/25 16:32 1 MG Levalbuterol HCl 1.25 mg Q6HR NEB 02/06/25 18:00 02/15/25 11:19 1.25 MG Fentanyl 75 mcg Q72H TD 02/08/25 08:15 02/14/25 08:15 75 MCG Acetaminophen/ Hydrocodone Bitart 1 tab Q4HPRN PRN PO 02/10/25 13:45 02/15/25 10:43 1 TAB Ondansetron HCl 4 mg Q4HPRN PRN IV 02/12/25 05:00 02/13/25 21:44 4 MG Lorazepam 1 mg Q8HP PRN IV 02/12/25 16:15 02/14/25 21:47 1 MG Sucralfate 1 gm BID@0600,2200 PO 02/12/25 17:15 02/15/25 05:46 1 GM Lactulose 30 ml DAILY PO 02/13/25 10:00 02/15/25 10:30 30 ML Pantoprazole Sodium 40 mg BID@0600,1700 PO 02/13/25 17:00 02/15/25 05:48 40 MG Enteral Nutritional Formula 240 ml TIDWM PO 02/13/25 18:00 Hold Linezolid 600 mg BID PO 02/13/25 22:00 02/15/25 10:30 600 MG Valproate Sodium 250 mg BID PO 02/13/25 22:00 02/15/25 10:30 250 MG Enteral Nutritional Formula 240 ml TIDWM PO 02/13/25 18:00 02/15/25 12:00 240 ML Ergocalciferol 50,000 unit Q7D PO 02/14/25 07:30 02/14/25 08:50 50,000 UNIT Propranolol HCl 20 mg BID PO 02/14/25 22:00 02/15/25 10:31 20 MG Apixaban 5 mg BID PO 02/14/25 22:00 02/15/25 10:31 5 MG Gabapentin 300 mg TID PO 02/14/25 14:00 02/15/25 14:06 300 MG Levofloxacin 750 mg DAILY PO 02/15/25 10:00 02/15/25 10:38 750 MG Psyllium Hydrophilic Mucilloid 1 pkg DAILY GT 02/15/25 10:00 02/15/25 10:30 1 PKG Levetiracetam 750 mg BID PO 02/15/25 10:15 Examination Patient sitting comfortably in the chair, out of bed, well conversational, no acute distress General: Well-built, afebrile, palor, mucosae are moist Cardiovascular: Tachycardic but Regular S1 and S2. No murmurs, gallops or rubs. No JVD elevation. No pedal edema Respiratory: Normal B/L air entry RA bilateral equal air entry Abdomen: Soft, nontender, nondistended, normoactive bowel sounds, no rebound tenderness, no organomegaly, no masses Genitourinary: Navarrete dc MSK/skin: Patient is ambulating Neurological: Pupils are isocoric and reactive. Psych/Mental Status: A/Ox3 laboratory and microbiology Laboratory Tests 02/15/25 02:30 Test 02/15/25 02:30 Range/Units Serum Glucose 91 74-106 mg/dL Microbiology Date/Time Source Procedure Growth Status 02/07/25 02:15 Urine - Navarrete Port Urine Culture - Final Complete 01/22/25 18:44 Blood Blood Culture - Final NO GROWTH AFTER 5 DAYS OF INCUBATION. Complete 01/18/25 10:40 Sputum Gram Stain - Final Complete 01/18/25 10:40 Sputum Respiratory Culture - Final Complete 01/05/25 08:15 Other Abscess Gram Stain - Final Complete 01/05/25 08:15 Other Abscess Anaerobic Culture - Final Complete 01/05/25 08:15 Aerobic Culture - Final Enterococcus faecium - VRE Complete 01/05/25 08:02 Peritoneal Fluid Gram Stain - Final Complete 01/05/25 08:02 Peritoneal Fluid Anaerobic Culture - Final Complete 01/05/25 08:02 Aerobic Culture - Final Enterococcus faecium - VRE Citrobacter freundii Vanc Resistant Enterococcus Complete Labs and/or images reviewed: Labs reviewed by me, Image(s) reviewed by me Problem List/Assessment/Plan Problem List/Assessment/Plan NEURO: Acute metabolic encephalopathy likely due to in-hospital delirium History of epilepsy Wheelchair-bound 2022 status post fall Continue valproate twice daily Diphenhydramine q.6 p.r.n. for agitation, Librium 25 mg TID Keppra b.i.d. Olanzapine 10 mg daily CARDIOVASCULAR: Septic shock likely due to intra-abdominal sepsis Sinus tachycardia Propranolol 20mg tid PULMONARY: Acute hypoxic respiratory failure status post intubation status post tracheostomy 01/05 downsized to 6 Likely acute respiratory distress syndrome-non cardiogenic pulmonary edema- resolving Pleural effusion status post thoracocentesis Nebulized treatments daily GASTROINTESTINAL: Intractable pain secondary to Intra-abdominal sepsis with VRE and peritonitis status post exploratory laparotomy x2 01/05 and 12/27 Status post bowel resection and colostomy Intra-abdominal abscess Splenic fluid collection Pantoprazole 40 mg PO zyvox PO 600 bid, levaquin IV daily 02/12 switched to p.o. 02/14 DC micafungin daily Fentanyl patch 75 mcg, deescalate GENITOURINARY: DC Navarrete catheter METABOLIC: Hypoalbuminemia Moderate to severe protein calorie malnutrition Ensure TID HEMATOLOGY/ONCOLOGY Right upper extremity DVT 01/09 Left upper extremity superficial thrombosis Anemia likely normocytic status post 3 packed RBC transfusion Thrombocytosis Lovenox 70 mg b.i.d. to eliquis 02/13 Iron profile consistent with anemia of chronic disease INFECTIOUS DISEASE: Intra-abdominal sepsis with VRE zyvox PO 600 bid, levaquin IV daily 02/12 DC micafungin daily MUSCULOSKELETAL Chronic open dependence Neuropathic Pain Gabapentin 300mg tid Thiamine and folic acid daily Vitamin-D deficiency Supplemented DIET: Pureed diet DVT prophylaxis, Eliquis GI prophylaxis: Protonix Code status: Full code LINES/DRAINS/ACCESS: IV access: Left femoral central line 01/28 till 02/11, peripheral IV is inserted Drips: Tube feedings Navarrete catheter dc 02/11 DISPOSITION: ICU PT eval Patient's status discussed with Family Critical care time spent more than 62 minutes, including downsizing tracheostomy, patient care, chart review, and updating the family. Excluding any procedures Case discussed with Dr. Fernandez Plan discussed with: Patient My Orders My Orders Orders - VALERIE HESTER RESIDENT Procedure Category Date Status Time Psyllium Powder PHA 02/15/25 In Process (Metamucil Powder) 10:00 Communication Order ORDERS 02/15/25 Transmitted 10:36 Dietary Evaluation Review Comments: 1. TF: Vital AF@50ml/hr (90g protein, 1440kcal 973 free water) meeting Protein needs 83%, energy needs 80%. 2. TPN per pharmacy meeting 75% of his needs if TF not feasible or NPO>7 days. 3. Diet as tolerated per [employer] eval when off Vent Expected Outcomes/Goals: Preventing catabolism VALERIE HESTER RESIDENT Feb 15, 2025 15:11
[2025-02-16] VITALS (32 sets, daily range): BP systolic 95–139; BP diastolic 36–93; PULSE 78–118; RESP 14–36; TEMP 98.2–98.9; O2SAT 86–100
[2025-02-16 03:27] LABS: Hematocrit 31.9 % (41.0-53.0); Hemoglobin 10.6 g/dL (13.5-17.5); Mean Corpuscular Hemoglobin 28.2 pg (28.0-32.0); Mean Corpuscular Volume 84.9 fL (80.0-100.0); Nucleated Red Blood Cells % 0.0 %
[2025-02-16 03:38] LABS: Anion Gap 10 (5-15); Carbon Dioxide 25 mmol/L (20-31); Chloride 100 mmol/L (98-107); Potassium 4.1 mmol/L (3.5-5.1)
[2025-02-16 03:39] LABS: Sodium 135 mmol/L (136-145)
[2025-02-16 03:40] LABS: Calcium 9.1 mg/dL (8.7-10.4)
[2025-02-16 03:45] LABS: BUN/Creatinine Ratio 10.9 (10.0-20.0); Glucose 95 mg/dL (74-106); Magnesium 1.7 mg/dL (1.6-2.6)
[2025-02-16 03:50] LABS: Blood Urea Nitrogen 7 mg/dL (9-23)
[2025-02-16] MEDS: MAGNESIUM SULFATE 1GM/100ML 100 ML IV SCH (05:29)
--- NOTE | 2025-02-16 10:09 | DVHPN2 ---
Subjective Review of Systems 44-year-old male with PMHx of epilepsy, gout, and chronic pain, presenting with 1-hour history of excruciating RLQ abdominal pain, per mother. She reports he has had chronic constipation for the past month, managed with stool softeners and coconut water. He also takes chronic opioids (oxycodone) and benzodiazepines (alprazolam), per medication reconciliation. On arrival to ED 12/17/24, the patient was in acute respiratory distress. CT abdomen showed diffuse colitis with small perihepatic ascites. Initial management included Zosyn and Flagyl. Despite analgesics (multiple doses of Dilaudid), he became progressively agitated and tachypneic. Ativan and haloperidol were administered, but by ~5 PM he was intubated due to worsening respiratory status and altered mentation. He required escalating vasopressor support overnight (levophed at 2 AM, then phenylephrine and vasopressin). Received 4L NS total during resuscitation. WBC trended from leukocytosis to leukopenia; lactic acidosis and primary metabolic acidosis were noted on ABG.sh 12/19/24: wean off phenylephrine, vasopressin and titrating down levophed, ABG showed metabolic acidosis with hyperchloremia in the metabolic panel, fluids changed to bicarb 150 meq and d5w, less drainage from the OG tube, we are going to start tube feedings 12/20/24: wean off levophed, ABG showed respiratory alkalosis, fluids changed to lactate ringer 75cc/h, hold on tube feedings, start clinimix, we are going to do ct scan with IV and PO contrast 12/21/24: CT scan showed Mild ileus pattern, Possible colitis at the hepatic flexure and within the distal and proximal sigmoid colon which may be infectious or inflammatory, Moderate volume of abdominal ascites, soap enema was done unsuccessfully, Dr Forbes at bedside indicates, miralax once, reglan sherron q8h, soap enemas BID, titrate fentanyl down, K+ and Mg2+ was replaced 12/22/24: dc fluids, no BM, start methylnaltrexone, severe hypokalemia 2.6 12/23/24: no BM, hypokalemia 2.9, RR set at 16 12/24/24: no BM, off pressors, midazolam 9, propofol 50 fentanyl 200 mcg, clinimix, hypokalemia 3.3, replaced with 4 bags of kcl rider 80meq, gastric output high 850cc, fevers yesterday, we are going to take new cultures today, GI ordered gastrografin bowel series, patient had oral dye and bowel series were taken during the day, x ray showed more congestion 1 dose of furosemide 12/25/24: small bowel movement today, per dr Bailey, start magnesium citrate, today postpyloric tube is placed, magnesium can be give it from there, clinimix is changed to TPN, high gastric residuals, this afternoon K 3,7, intrabdominal pressure 9-10 12/26/24: ultrasound showed multiloculated ascites, no paracentesis were performed, due to the possible upper fecal impaction, GI, Dr Bailey, was consulted to perform a colonoscopy which showed In the proximal sigmoid or at the junction of the sigmoid and descending colon there appeared to be an ischemic area and there was an area of a large fluid collection and 6 L of greenish brown liquid which was aspirated along with some stool. There is a possibility that the patient may have a previous area of spontaneous perforation and this fluid may have been aspirated possibly from the peritoneal cavity. The colonoscope was not advanced beyond this area. Surgery Dr Krishna, will perform exploratory laparotomy due to the possibility of bowel ischemia, risk and benefits were explained to the mother, the possibility of colostomy was also discussed, stop TPN, continue suction 12/27/24 The patient underwent exploratory laparotomy, during which approximately 2 liters of purulent fluid were drained. Extensive fibrinous adhesions were noted throughout the peritoneal cavity, necessitating adhesiolysis and removal of intraperitoneal fibrin. Due to significant inflammation and concern for bowel integrity, the surgical team avoided aggressive mobilization. No evidence of gastrointestinal perforation was identified. Four Jeanmarie-Dooley drains were placed, and the cavity was copiously irrigated with 10 liters of saline. Postoperatively, the patient exhibited elevated peak airway pressures and severe respiratory acidosis. Ventilator settings were transitioned to pressure control, and bronchodilator therapy was initiated for wheezing. A bicarbonate drip was started with subsequent improvement in acid-base status. The patient is on broad-spectrum antimicrobials including meropenem, vancomycin, and micafungin, along with antipyretics and analgesia using IV acetaminophen and ketorolac. 12/28/24: today respiratory alkalosis, pressure control was changed to volume control, ABG after better, dc bicarb drip, continue LR75 cc/h, SHIRLENE drainage moderate, bronchospam is better, xray showed congestion, one dose of furosemide given 12/29/24 - patient had large colonic abscess, this was drained by surgery. Surgery has patient is strict NPO. OG suction yesterday had 400 cc dark green. There is also a Dobbhoff that is not being used only for surgical use. Patient is on sedation, no CPAP or sedation vacation trials per primary team. Currently drips are Versed 15, propofol 45, fentanyl 325, TPN 46. Continuing broad- spectrum antibiotics vancomycin/meropenem/micafungin. On exam patient is anasarca, albumin very low 2.5. We will match fluids, schedule Lasix 40 IV daily. Yesterday urine output was 800, today we will give 600 cc fluids only. Patient ventilator a.c. 16/4 70/30%/5.0. Recent echo EF was normal and no abnormalities. Patient has history of drug abuse, suspect renal disease nephrotic or similar causing low protein state and/or liver disease. Patient may need albumin infusion. Patient has leukocytosis, reactive thrombocytosis. Holding off Lovenox due to hemoglobin drop from 11-8. We will repeat a hemoglobin today. SHIRLENE drain with serosanguineous output. We are holding off Lovenox instead we will do SCDs. 12/30/2024 patient continues to have fevers cooling measures are being applied. Continues to remain sedated drips include Versed 15 propofol 50 fentanyl 350. We will also replete electrolytes and have TPN at 50. Patient is making good urine output Lasix 40 IV daily is being continued patient has reducing sarcoid Muniz. Bag currently with 1.6 L. We will give 1.2 L over 24 hours today. Vital signs mild tachycardia low 100s. Mechanically ventilated a.c./20/470/100%/5.0.. Surgery is not planning another OR operation, we will try sedation vacation today. No CPAP trial today. If patient does well with sedation vacation today may try CPAP trial tomorrow. Cultures are growing VRE. We will change vancomycin to linezolid. Current antibiotics we will now be linezolid/meropenem/micafungin. 02/11 - Overnight, patient is afebrile, tachycardic into 120s but Sinus, tachypneic intermittently, normotensive, on TPs at 10 L with 35% FiO2. Urine output 1400, stool output 2-5 cc from colostomy. Patient is sitting in the chair comfortably, CBC stable, CMP unremarkable, started clear liquid diet. DC Precedex today. dc navarrete 02/13 - patient seen, axo3, onto chair, on cl liq diet, transitioning to eliquis, , restraining bands for PT, meds to po, dc micafungin, zyvox PO, ensure added 02/14 - patient seen and examined, reports neuropathic pain, started gabapentin 300 mg TID, Levaquin since to p.o.. Started pureed diet. Trach downsized to 4.0 shiley, brief episode of desaturation to 88, improved on 5 L 02/15 - patient seen and examined, onto chair, on room air, PT on board. 02/16: Patient is seen at bedside today. He is doing well continuing treatment as primary team's plan continuing pain control with fentanyl patch. We will add Toradol for severe continue Murray for moderate. Patient is complaining of trouble sleeping we will give trazodone 50 HS scheduled. PT at bedside we will continue working PT. Continue primary team's treatment plan otherwise. Reviewed: Care Plan, H&P, Labs, Medications, Previous Orders, Radiology, Other (Consultations) Changes from previous H/P or p: No Changes General: Per HPI Objective Vitals Vital Signs Date Time Temp Pulse Resp B/P (MAP) Pulse Ox O2 Delivery O2 Flow Rate FiO2 02/16/25 08:00 98.7 94 28 112/36 (61) 86 98.7 02/16/25 07:50 Room Air* 0 21 Intake/Output Intake and Output 02/16/25 07:00 Intake Total 1440 ml Output Total 1975 ml Balance -535 ml Intake Oral 1340 ml IV Total 100 ml Output Urine Total 1450 ml Stool Total 525 ml # Voids 3 Exam General: Well-built, afebrile, palor, mucosae are moist Cardiovascular: Tachycardic but Regular S1 and S2. No murmurs, gallops or rubs. No JVD elevation. No pedal edema Respiratory: Normal B/L air entry RA bilateral equal air entry Abdomen: Soft, nontender, nondistended, normoactive bowel sounds, no rebound tenderness, no organomegaly, no masses Genitourinary: Navarrete dc MSK/skin: Patient is ambulating Neurological: Pupils are isocoric and reactive. Psych/Mental Status: A/Ox3 General Appearance: Alert HEENT: Atraumatic, PERRLA, Other (Tracheostomy in place; Dobbhoff tube in place ) Lungs: Clear to auscultation, Normal air movement, Other Cardiovascular: Regular rate, Normal S1, Normal S2, No murmurs Abdomen: Normal bowel sounds, Soft, Other (Midline surgical wound with wound VAC; SHIRLENE drain with serosanguineous fluid; colostomy with very minimal amount of greenish fluid) Genitourinary: Other (Navarrete's in place) Neuro: Other (Sedated) Skin: Wounds (See nurse notes and pictures), Other (Please kindly refer to nursing documentation) Psych/Mental Status: Other (Sedated) Medications Current Medications Medications Dose Ordered Sig/Sherron Route Start Time Stop Time Status Last Admin Dose Admin Sodium Chloride 40 meq/Potassium Chloride 40 meq/ Potassium Phosphate 11 meq/ Calcium Gluconate 2.3 meq/Magnesium Sulfate 8 meq/ Multivitamins 10 ml/Chromium/ Copper/Manganese/ Zinc 1 ml/Amino Acids/Dextrose/ Purified Water 1,450.4462 ml @ 60 mls/hr [id number] IV 12/26/24 22:00 12/27/24 21:59 Cancel Sodium Chloride 10 ml QSHIFT@10,22 IV 12/27/24 22:00 02/15/25 21:03 10 ML Artificial Tears 1 drop Q6HP PRN EACHEYE 12/29/24 23:45 01/06/25 09:00 1 DROP Ketamine HCl 50 mg [id number] PRN IV 01/04/25 15:00 01/05/25 07:00 Cancel Sodium Chloride 120 meq/Potassium Chloride 50 meq/ Potassium Acetate 50 meq/Calcium Gluconate 4.65 meq/Magnesium Sulfate 34 meq/ Multivitamins 10 ml/Chromium/ Copper/Manganese/ Zinc 1 ml/Amino Acids/Dextrose/ Purified Water 1,659.5 ml @ 68.108 mls/hr [id number] IV 01/09/25 22:00 01/10/25 21:59 Cancel Sodium Chloride 100 meq/Potassium Chloride 50 meq/ Calcium Gluconate 4.65 meq/ Magnesium Sulfate 34 meq/ Multivitamins 10 ml/Chromium/ Copper/Manganese/ Zinc 1 ml/Sodium Phosphate 20 meq/ Potassium Acetate 50 meq/Amino Acids/Dextrose/ Purified Water 1,659.5 ml @ 68.537 mls/hr [id number] IV 01/09/25 09:30 01/09/25 21:59 Cancel Folic Acid 1 mg DAILY PO 01/20/25 10:00 02/15/25 10:30 1 MG Acetaminophen 650 mg Q6HP PRN GT 01/22/25 10:15 02/10/25 13:20 650 MG Mupirocin 1 applic BID EACHNOSTRI 01/27/25 22:00 02/01/25 21:59 UNV Acetylcysteine 200 mg Q6HR NEB 02/06/25 12:00 02/16/25 06:17 200 MG Ipratropium [place] 0.5 mg Q6HR NEB 02/06/25 12:00 02/16/25 06:17 0.5 MG Lorazepam 1 mg ONCE PRN IV 02/06/25 10:45 02/15/25 15:29 1 MG Levalbuterol HCl 1.25 mg Q6HR NEB 02/06/25 18:00 02/16/25 06:17 1.25 MG Fentanyl 75 mcg Q72H TD 02/08/25 08:15 02/14/25 08:15 75 MCG Acetaminophen/ Hydrocodone Bitart 1 tab Q4HPRN PRN PO 02/10/25 13:45 02/16/25 03:33 1 TAB Ondansetron HCl 4 mg Q4HPRN PRN IV 02/12/25 05:00 02/13/25 21:44 4 MG Lorazepam 1 mg Q8HP PRN IV 02/12/25 16:15 02/16/25 06:19 1 MG Sucralfate 1 gm BID@0600,2200 PO 02/12/25 17:15 02/16/25 05:29 1 GM Lactulose 30 ml DAILY PO 02/13/25 10:00 02/15/25 10:30 30 ML Pantoprazole Sodium 40 mg BID@0600,1700 PO 02/13/25 17:00 02/16/25 05:30 40 MG Enteral Nutritional Formula 240 ml TIDWM PO 02/13/25 18:00 Hold Linezolid 600 mg BID PO 02/13/25 22:00 02/15/25 21:01 600 MG Valproate Sodium 250 mg BID PO 02/13/25 22:00 02/15/25 20:58 250 MG Enteral Nutritional Formula 240 ml TIDWM PO 02/13/25 18:00 02/15/25 12:00 240 ML Ergocalciferol 50,000 unit Q7D PO 02/14/25 07:30 02/14/25 08:50 50,000 UNIT Propranolol HCl 20 mg BID PO 02/14/25 22:00 02/15/25 21:00 20 MG Apixaban 5 mg BID PO 02/14/25 22:00 02/15/25 20:59 5 MG Gabapentin 300 mg TID PO 02/14/25 14:00 02/16/25 05:30 300 MG Levofloxacin 750 mg DAILY PO 02/15/25 10:00 02/15/25 10:38 750 MG Psyllium Hydrophilic Mucilloid 1 pkg DAILY GT 02/15/25 10:00 02/15/25 10:30 1 PKG Levetiracetam 750 mg BID PO 02/15/25 10:15 02/15/25 21:01 750 MG Laboratory Results Laboratory Tests 02/16/25 02:43 Chemistry Test 02/16/25 02:43 Calcium Level 9.1 mg/dL (8.7-10.4) Magnesium Level 1.7 mg/dL (1.6-2.6) Urinalysis Test 12/18/24 08:16 Urine Color Dark-brown (Yellow) Urine Clarity Ex.turbid (Clear) Urine pH 6.0 (5.0-9.0) Urine Specific [place] 1.041 (1.001-1.035) Urine Protein 1+ (Negative) H Urine Ketones Negative (Negative) Urine Blood Trace /uL (Negative) H Urine Nitrite Negative (Negative) Urine Bilirubin Negative (Negative) Urine Urobilinogen Normal mg/dL (Negative) Urine Leukocyte Esterase Negative /uL (Negative) Urine RBC 30 /hpf (0 - 3) Urine WBC Clumps Present /hpf (None Seen) Urine Microscopic WBC 151 /HPF (0-3) H Urine Squamous Epithelial Cells None seen /hpf (<5) Urine Bacteria None seen /hpf (None Seen) Urine Mucus Few (None Seen) Urine Glucose Normal mg/dL (Normal) Microbiology Microbiology Date/Time Source Procedure Growth Status 02/07/25 02:15 Urine - Navarrete Port Urine Culture - Final Complete 01/22/25 18:44 Blood Blood Culture - Final NO GROWTH AFTER 5 DAYS OF INCUBATION. Complete 01/18/25 10:40 Sputum Gram Stain - Final Complete 01/18/25 10:40 Sputum Respiratory Culture - Final Complete 01/05/25 08:15 Other Abscess Gram Stain - Final Complete 01/05/25 08:15 Other Abscess Anaerobic Culture - Final Complete 01/05/25 08:15 Aerobic Culture - Final Enterococcus faecium - VRE Complete 01/05/25 08:02 Peritoneal Fluid Gram Stain - Final Complete 01/05/25 08:02 Peritoneal Fluid Anaerobic Culture - Final Complete 01/05/25 08:02 Aerobic Culture - Final Enterococcus faecium - VRE Citrobacter freundii Vanc Resistant Enterococcus Complete Labs and/or images reviewed: Labs reviewed by me, Image(s) reviewed by me Assessment/Plan Assessment/Plan NEURO: Acute metabolic encephalopathy likely due to in-hospital delirium History of epilepsy Wheelchair-bound 2022 status post fall Continue valproate twice daily Diphenhydramine q.6 p.r.n. for agitation, Librium 25 mg TID Keppra b.i.d. Olanzapine 10 mg daily CARDIOVASCULAR: Septic shock likely due to intra-abdominal sepsis Sinus tachycardia Propranolol 20mg tid PULMONARY: Acute hypoxic respiratory failure status post intubation status post tracheostomy 01/05 downsized to 6 Likely acute respiratory distress syndrome-non cardiogenic pulmonary edema- resolving Pleural effusion status post thoracocentesis Nebulized treatments daily GASTROINTESTINAL: Intractable pain secondary to Intra-abdominal sepsis with VRE and peritonitis status post exploratory laparotomy x2 01/05 and 12/27 Status post bowel resection and colostomy Intra-abdominal abscess Splenic fluid collection Pantoprazole 40 mg PO zyvox PO 600 bid, levaquin IV daily 02/12 switched to p.o. 02/14 DC micafungin daily Fentanyl patch 75 mcg, deescalate GENITOURINARY: DC Navarrete catheter METABOLIC: Hypoalbuminemia Moderate to severe protein calorie malnutrition Ensure TID HEMATOLOGY/ONCOLOGY Right upper extremity DVT 01/09 Left upper extremity superficial thrombosis Anemia likely normocytic status post 3 packed RBC transfusion Thrombocytosis Lovenox 70 mg b.i.d. to eliquis 02/13 Iron profile consistent with anemia of chronic disease INFECTIOUS DISEASE: Intra-abdominal sepsis with VRE zyvox PO 600 bid, levaquin IV daily 02/12 DC micafungin daily MUSCULOSKELETAL Chronic open dependence Neuropathic Pain Gabapentin 300mg tid Thiamine and folic acid daily Vitamin-D deficiency Supplemented DIET: Pureed diet DVT prophylaxis, Eliquis GI prophylaxis: Protonix Code status: Full code LINES/DRAINS/ACCESS: IV access: Left femoral central line 01/28 till 02/11, peripheral IV is inserted Drips: Tube feedings Navarrete catheter dc 02/11 DISPOSITION: ICU Plan discussed with: Patient Date of Service: Feb 16, 2025 Billing Provider: MOSES CUMMINS MD Common Visit Codes: 62242-[id number] CARE 30-74 MIN MOSES CUMMINS MD Feb 16, 2025 10:09
[2025-02-16] MEDS: KETOROLAC TROMETH 30 MG/ML 1ML VIAL IV PRN (20:05)
--- NOTE | 2025-02-16 23:01 | DVHPN2 ---
Progress Note - Dictate Date Seen: Feb 16, 2025 Has the PT tested + for MRSA If YES, has PT been informed?: No Medical Necessity Reason Pt with a Central, PICC or Fol: No Reason for navarrete catheter: Strict I&O Subjective Patient seen and examined at bedside. Trach in place. Breathing on room air. Overnight events reviewed vital signs Vital Sign Date Time Temp Pulse Resp B/P (MAP) Pulse Ox O2 Delivery O2 Flow Rate FiO2 02/16/25 22:20 104 104/60 02/16/25 21:00 19 96 02/16/25 20:00 Room Air* 0 21 02/16/25 20:00 98.4 98.4 Total Intake and Output 02/15/25 02/15/25 02/16/25 15:00 23:00 07:00 Intake Total 240 ml 600 ml 600 ml Output Total 1300 ml 675 ml Balance 240 ml -700 ml -75 ml medications Current Medications Medications Dose Ordered Sig/Sherron Route Start Time Stop Time Status Last Admin Dose Admin Sodium Chloride 40 meq/Potassium Chloride 40 meq/ Potassium Phosphate 11 meq/ Calcium Gluconate 2.3 meq/Magnesium Sulfate 8 meq/ Multivitamins 10 ml/Chromium/ Copper/Manganese/ Zinc 1 ml/Amino Acids/Dextrose/ Purified Water 1,450.4462 ml @ 60 mls/hr [id number] IV 12/26/24 22:00 12/27/24 21:59 Cancel Sodium Chloride 10 ml QSHIFT@10,22 IV 12/27/24 22:00 02/16/25 22:17 10 ML Artificial Tears 1 drop Q6HP PRN EACHEYE 12/29/24 23:45 01/06/25 09:00 1 DROP Ketamine HCl 50 mg [id number] PRN IV 01/04/25 15:00 01/05/25 07:00 Cancel Sodium Chloride 120 meq/Potassium Chloride 50 meq/ Potassium Acetate 50 meq/Calcium Gluconate 4.65 meq/Magnesium Sulfate 34 meq/ Multivitamins 10 ml/Chromium/ Copper/Manganese/ Zinc 1 ml/Amino Acids/Dextrose/ Purified Water 1,659.5 ml @ 68.108 mls/hr [id number] IV 01/09/25 22:00 01/10/25 21:59 Cancel Sodium Chloride 100 meq/Potassium Chloride 50 meq/ Calcium Gluconate 4.65 meq/ Magnesium Sulfate 34 meq/ Multivitamins 10 ml/Chromium/ Copper/Manganese/ Zinc 1 ml/Sodium Phosphate 20 meq/ Potassium Acetate 50 meq/Amino Acids/Dextrose/ Purified Water 1,659.5 ml @ 68.537 mls/hr [id number] IV 01/09/25 09:30 01/09/25 21:59 Cancel Folic Acid 1 mg DAILY PO 01/20/25 10:00 02/16/25 10:50 1 MG Acetaminophen 650 mg Q6HP PRN GT 01/22/25 10:15 02/10/25 13:20 650 MG Mupirocin 1 applic BID EACHNOSTRI 01/27/25 22:00 02/01/25 21:59 UNV Acetylcysteine 200 mg Q6HR NEB 02/06/25 12:00 02/16/25 18:32 200 MG Ipratropium [place] 0.5 mg Q6HR NEB 02/06/25 12:00 02/16/25 18:32 0.5 MG Lorazepam 1 mg ONCE PRN IV 02/06/25 10:45 02/15/25 15:29 1 MG Levalbuterol HCl 1.25 mg Q6HR NEB 02/06/25 18:00 02/16/25 18:32 1.25 MG Fentanyl 75 mcg Q72H TD 02/08/25 08:15 02/14/25 08:15 75 MCG Acetaminophen/ Hydrocodone Bitart 1 tab Q4HPRN PRN PO 02/10/25 13:45 02/16/25 15:56 1 TAB Ondansetron HCl 4 mg Q4HPRN PRN IV 02/12/25 05:00 02/13/25 21:44 4 MG Lorazepam 1 mg Q8HP PRN IV 02/12/25 16:15 02/16/25 20:04 1 MG Sucralfate 1 gm BID@0600,2200 PO 02/12/25 17:15 02/16/25 22:17 1 GM Lactulose 30 ml DAILY PO 02/13/25 10:00 02/16/25 10:50 30 ML Pantoprazole Sodium 40 mg BID@0600,1700 PO 02/13/25 17:00 02/16/25 18:00 40 MG Enteral Nutritional Formula 240 ml TIDWM PO 02/13/25 18:00 Hold Linezolid 600 mg BID PO 02/13/25 22:00 02/16/25 22:19 600 MG Valproate Sodium 250 mg BID PO 02/13/25 22:00 02/16/25 22:17 250 MG Enteral Nutritional Formula 240 ml TIDWM PO 02/13/25 18:00 02/16/25 12:00 240 ML Ergocalciferol 50,000 unit Q7D PO 02/14/25 07:30 02/14/25 08:50 50,000 UNIT Propranolol HCl 20 mg BID PO 02/14/25 22:00 02/16/25 22:20 20 MG Apixaban 5 mg BID PO 02/14/25 22:00 02/16/25 22:19 5 MG Gabapentin 300 mg TID PO 02/14/25 14:00 02/16/25 22:19 300 MG Levofloxacin 750 mg DAILY PO 02/15/25 10:00 02/16/25 10:54 750 MG Psyllium Hydrophilic Mucilloid 1 pkg DAILY GT 02/15/25 10:00 02/16/25 10:42 1 PKG Levetiracetam 750 mg BID PO 02/15/25 10:15 02/16/25 22:18 750 MG Trazodone HCl 50 mg HS PO 02/16/25 22:00 02/18/25 22:00 02/16/25 22:19 50 MG Ketorolac Tromethamine 15 mg Q6HPRN PRN IV 02/16/25 10:15 02/18/25 22:00 02/16/25 20:05 15 MG objective Gen.: Patient lying in bed in no apparent distress. Breathing on room air. Head: Normocephalic, atraumatic. Eyes: EOMI/PERRLA. Ears: Normal hearing. Normal anatomy. Neck/trachea: Trach in place. Nose: Normal external anatomy. Mouth: Moist mucous membranes. Chest: Decreased air entry bilaterally. No wheezing or rhonchi. Cardiovascular: Positive S1, positive S2. Regular rate and rhythm. Abdomen: Positive bowel sounds in all 4 quadrants. Soft, non-tender, non- distended. : Deferred. Rectal: Deferred. Skin: Warm, dry. Intact. Extremities: 2+ radial pulses bilaterally. No lower extremity edema. Neuro: Awake, alert, oriented x3. No gross motor or sensory deficits. Cranial nerves II through XII intact. Gait not assessed. laboratory and microbiology Laboratory Tests 02/16/25 02:43 Test 02/16/25 02:43 Range/Units Serum Glucose 95 74-106 mg/dL Assessment/Plan Impression: Acute hypoxic respiratory failure S/p tracheostomy Fluid overload Sepsis Right upper extremity DVT S/p exploratory laparotomy Events: Remains on room air, trach in place. Note, patient had trach dislodgement today and trach was replaced. It was downsized yesterday. Continue trach care per RT Wound care Continue antibiotics. Continue bronchodilators. Colostomy functioning well. On Carafate Lactulose Protonix for GI ppx Follow up GI recs On puree diet Eliquis BID Continue antiepileptic with Keppra Pain control Avoid oversedation Continue physical therapy. Patient out of bed to chair. Labs and imaging reviewed. Rest of plan as noted below. Plan: s/p tracheostomy Place on full vent support if any distress. Trach care Continue antibiotics. F/u cultures. Continue bronchodilators S/p ex-lap and colostomy. Follow up GI/Surgery recommendations On Carafate Protonix for GI ppx On puree diet. Pain control Avoid oversedation Physical therapy. Monitor renal function Monitor electrolytes. Supplement as necessary. Monitor ins and outs. GI/DVT prophylaxis. Prognosis: Poor given patient's multiple co-morbidities. Rest of plan per hospitalist and other consultants. Thank you, Dr. Brennan, for allowing me to participate in this patient's care. Further recommendations will depend on the patient's clinical course. Please do not hesitate to contact me if you have any questions or concerns. This medical document was created using an electronic medical record system with [employer] dictation system. Although these documentations are being carefully reviewed, there may still be some phonetic and typographical changes. The errors are purely typographical, due to imperfection on the software program, and do not reflect any compromise in the patient's medical care. Dietary Evaluation Review Comments: 1. TF: Vital AF@50ml/hr (90g protein, 1440kcal 973 free water) meeting Protein needs 83%, energy needs 80%. 2. TPN per pharmacy meeting 75% of his needs if TF not feasible or NPO>7 days. 3. Diet as tolerated per [employer] eval when off Vent Expected Outcomes/Goals: Preventing catabolism Plan discussed with: Patient, Other (RN Bisi) QUINN LANDON MD Feb 16, 2025 23:01
--- NOTE | 2025-02-16 23:20 | DVHPN2 ---
Progress Note - Dictate Date Seen: Feb 16, 2025 Has the PT tested + for MRSA If YES, has PT been informed?: No Medical Necessity Reason Pt with a Central, PICC or Fol: No Reason for navarrete catheter: Strict I&O Subjective Patient is stable from a GI point of view He is tolerating tube feedings Colostomy is functional Patient was out of bed to chair Trach colostomy has been downsized No active GI bleeding reported Leukocytosis and thrombocytosis improving vital signs Vital Sign Date Time Temp Pulse Resp B/P (MAP) Pulse Ox O2 Delivery O2 Flow Rate FiO2 02/16/25 23:00 86 16 113/62 (79) 97 02/16/25 22:00 Nasal Cannula* 2 28 02/16/25 20:00 98.4 98.4 Total Intake and Output 02/15/25 02/15/25 02/16/25 15:00 23:00 07:00 Intake Total 240 ml 600 ml 600 ml Output Total 1300 ml 675 ml Balance 240 ml -700 ml -75 ml medications Current Medications Medications Dose Ordered Sig/Sherron Route Start Time Stop Time Status Last Admin Dose Admin Sodium Chloride 40 meq/Potassium Chloride 40 meq/ Potassium Phosphate 11 meq/ Calcium Gluconate 2.3 meq/Magnesium Sulfate 8 meq/ Multivitamins 10 ml/Chromium/ Copper/Manganese/ Zinc 1 ml/Amino Acids/Dextrose/ Purified Water 1,450.4462 ml @ 60 mls/hr [id number] IV 12/26/24 22:00 12/27/24 21:59 Cancel Sodium Chloride 10 ml QSHIFT@10,22 IV 12/27/24 22:00 02/16/25 22:17 10 ML Artificial Tears 1 drop Q6HP PRN EACHEYE 12/29/24 23:45 01/06/25 09:00 1 DROP Ketamine HCl 50 mg [id number] PRN IV 01/04/25 15:00 01/05/25 07:00 Cancel Sodium Chloride 120 meq/Potassium Chloride 50 meq/ Potassium Acetate 50 meq/Calcium Gluconate 4.65 meq/Magnesium Sulfate 34 meq/ Multivitamins 10 ml/Chromium/ Copper/Manganese/ Zinc 1 ml/Amino Acids/Dextrose/ Purified Water 1,659.5 ml @ 68.108 mls/hr [id number] IV 01/09/25 22:00 01/10/25 21:59 Cancel Sodium Chloride 100 meq/Potassium Chloride 50 meq/ Calcium Gluconate 4.65 meq/ Magnesium Sulfate 34 meq/ Multivitamins 10 ml/Chromium/ Copper/Manganese/ Zinc 1 ml/Sodium Phosphate 20 meq/ Potassium Acetate 50 meq/Amino Acids/Dextrose/ Purified Water 1,659.5 ml @ 68.537 mls/hr [id number] IV 01/09/25 09:30 01/09/25 21:59 Cancel Folic Acid 1 mg DAILY PO 01/20/25 10:00 02/16/25 10:50 1 MG Acetaminophen 650 mg Q6HP PRN GT 01/22/25 10:15 02/10/25 13:20 650 MG Mupirocin 1 applic BID EACHNOSTRI 01/27/25 22:00 02/01/25 21:59 UNV Acetylcysteine 200 mg Q6HR NEB 02/06/25 12:00 02/16/25 18:32 200 MG Ipratropium [place] 0.5 mg Q6HR NEB 02/06/25 12:00 02/16/25 18:32 0.5 MG Lorazepam 1 mg ONCE PRN IV 02/06/25 10:45 02/15/25 15:29 1 MG Levalbuterol HCl 1.25 mg Q6HR NEB 02/06/25 18:00 02/16/25 18:32 1.25 MG Fentanyl 75 mcg Q72H TD 02/08/25 08:15 02/14/25 08:15 75 MCG Acetaminophen/ Hydrocodone Bitart 1 tab Q4HPRN PRN PO 02/10/25 13:45 02/16/25 15:56 1 TAB Ondansetron HCl 4 mg Q4HPRN PRN IV 02/12/25 05:00 02/13/25 21:44 4 MG Lorazepam 1 mg Q8HP PRN IV 02/12/25 16:15 02/16/25 20:04 1 MG Sucralfate 1 gm BID@0600,2200 PO 02/12/25 17:15 02/16/25 22:17 1 GM Lactulose 30 ml DAILY PO 02/13/25 10:00 02/16/25 10:50 30 ML Pantoprazole Sodium 40 mg BID@0600,1700 PO 02/13/25 17:00 02/16/25 18:00 40 MG Enteral Nutritional Formula 240 ml TIDWM PO 02/13/25 18:00 Hold Linezolid 600 mg BID PO 02/13/25 22:00 02/16/25 22:19 600 MG Valproate Sodium 250 mg BID PO 02/13/25 22:00 02/16/25 22:17 250 MG Enteral Nutritional Formula 240 ml TIDWM PO 02/13/25 18:00 02/16/25 12:00 240 ML Ergocalciferol 50,000 unit Q7D PO 02/14/25 07:30 02/14/25 08:50 50,000 UNIT Propranolol HCl 20 mg BID PO 02/14/25 22:00 02/16/25 22:20 20 MG Apixaban 5 mg BID PO 02/14/25 22:00 02/16/25 22:19 5 MG Gabapentin 300 mg TID PO 02/14/25 14:00 02/16/25 22:19 300 MG Levofloxacin 750 mg DAILY PO 02/15/25 10:00 02/16/25 10:54 750 MG Psyllium Hydrophilic Mucilloid 1 pkg DAILY GT 02/15/25 10:00 02/16/25 10:42 1 PKG Levetiracetam 750 mg BID PO 02/15/25 10:15 02/16/25 22:18 750 MG Trazodone HCl 50 mg HS PO 02/16/25 22:00 02/18/25 22:00 02/16/25 22:19 50 MG Ketorolac Tromethamine 15 mg Q6HPRN PRN IV 02/16/25 10:15 02/18/25 22:00 02/16/25 20:05 15 MG objective General Appearance: s/p trach on ventilator agitated, overbreathing, trashing around PERRLA MMM mechanical breath sounds s1 s2 tachy abdomen with surg scar and colostomy Abdominal: Binder in place, soft, distended, no bowel sounds; minimal colostomy liquid output Extremities: No clubbing, No cyanosis, No edema, Normal pulses, No tenderness/swelling laboratory and microbiology Laboratory Tests 02/16/25 02:43 Test 02/16/25 02:43 Range/Units Serum Glucose 95 74-106 mg/dL Problems(with codes): (1) Sigmoid colon injury (2) Septicemia due to vancomycin resistant Enterococcus (VRE) species (3) Peritonitis (4) Constipation (5) Sepsis, unspecified organism (6) Generalized weakness (7) Abnormal finding on GI tract imaging (8) Leukocytosis, unspecified (9) Abdominal pain (10) Acute respiratory failure Prognosis Plan Diet as tolerated ; IV antibiotics as per hospitalist team Patient stated he had an urgency to pass some fecal material from his rectum Patient was told to proceed with diet but gently and not to strain and I explained of the colostomy was draining his intestinal tract Possible discontinuation of tracheostomy next week, patient has tracheostomy came out today and he had seemed to be saturating well on room air Dietary Evaluation Review Comments: 1. TF: Vital AF@50ml/hr (90g protein, 1440kcal 973 free water) meeting Protein needs 83%, energy needs 80%. 2. TPN per pharmacy meeting 75% of his needs if TF not feasible or NPO>7 days. 3. Diet as tolerated per [employer] eval when off Vent Expected Outcomes/Goals: Preventing catabolism Plan discussed with: Patient, Other (ICU Nurse) MAO COLEMAN MD Feb 16, 2025 23:20
[2025-02-17] VITALS (30 sets, daily range): BP systolic 90–146; BP diastolic 48–95; PULSE 72–103; RESP 10–27; TEMP 97.9–98.8; O2SAT 92–100
[2025-02-17 04:15] LABS: Hemoglobin 10.4 g/dL (13.5-17.5); Mean Corpuscular Hemoglobin 28.6 pg (28.0-32.0)
[2025-02-17 04:22] LABS: Hematocrit 30.7 % (41.0-53.0); Mean Corpuscular Volume 84.6 fL (80.0-100.0); Nucleated Red Blood Cells % 0.1 %
[2025-02-17 04:24] LABS: Anion Gap 11 (5-15); Carbon Dioxide 24 mmol/L (20-31); Chloride 101 mmol/L (98-107); Potassium 3.9 mmol/L (3.5-5.1)
[2025-02-17 04:25] LABS: Calcium 9.2 mg/dL (8.7-10.4)
[2025-02-17 04:30] LABS: BUN/Creatinine Ratio 11.3 (10.0-20.0); Magnesium 1.7 mg/dL (1.6-2.6)
[2025-02-17 05:01] LABS: Blood Urea Nitrogen 8 mg/dL (9-23); Glucose 117 mg/dL (74-106); Sodium 136 mmol/L (136-145)
--- NOTE | 2025-02-17 09:46 | DVHPN2 ---
Subjective Review of Systems 44-year-old male with PMHx of epilepsy, gout, and chronic pain, presenting with 1-hour history of excruciating RLQ abdominal pain, per mother. She reports he has had chronic constipation for the past month, managed with stool softeners and coconut water. He also takes chronic opioids (oxycodone) and benzodiazepines (alprazolam), per medication reconciliation. On arrival to ED 12/17/24, the patient was in acute respiratory distress. CT abdomen showed diffuse colitis with small perihepatic ascites. Initial management included Zosyn and Flagyl. Despite analgesics (multiple doses of Dilaudid), he became progressively agitated and tachypneic. Ativan and haloperidol were administered, but by ~5 PM he was intubated due to worsening respiratory status and altered mentation. He required escalating vasopressor support overnight (levophed at 2 AM, then phenylephrine and vasopressin). Received 4L NS total during resuscitation. WBC trended from leukocytosis to leukopenia; lactic acidosis and primary metabolic acidosis were noted on ABG.sh 12/19/24: wean off phenylephrine, vasopressin and titrating down levophed, ABG showed metabolic acidosis with hyperchloremia in the metabolic panel, fluids changed to bicarb 150 meq and d5w, less drainage from the OG tube, we are going to start tube feedings 12/20/24: wean off levophed, ABG showed respiratory alkalosis, fluids changed to lactate ringer 75cc/h, hold on tube feedings, start clinimix, we are going to do ct scan with IV and PO contrast 12/21/24: CT scan showed Mild ileus pattern, Possible colitis at the hepatic flexure and within the distal and proximal sigmoid colon which may be infectious or inflammatory, Moderate volume of abdominal ascites, soap enema was done unsuccessfully, Dr Forbes at bedside indicates, miralax once, reglan sherron q8h, soap enemas BID, titrate fentanyl down, K+ and Mg2+ was replaced 12/22/24: dc fluids, no BM, start methylnaltrexone, severe hypokalemia 2.6 12/23/24: no BM, hypokalemia 2.9, RR set at 16 12/24/24: no BM, off pressors, midazolam 9, propofol 50 fentanyl 200 mcg, clinimix, hypokalemia 3.3, replaced with 4 bags of kcl rider 80meq, gastric output high 850cc, fevers yesterday, we are going to take new cultures today, GI ordered gastrografin bowel series, patient had oral dye and bowel series were taken during the day, x ray showed more congestion 1 dose of furosemide 12/25/24: small bowel movement today, per dr Bailey, start magnesium citrate, today postpyloric tube is placed, magnesium can be give it from there, clinimix is changed to TPN, high gastric residuals, this afternoon K 3,7, intrabdominal pressure 9-10 12/26/24: ultrasound showed multiloculated ascites, no paracentesis were performed, due to the possible upper fecal impaction, GI, Dr Bailey, was consulted to perform a colonoscopy which showed In the proximal sigmoid or at the junction of the sigmoid and descending colon there appeared to be an ischemic area and there was an area of a large fluid collection and 6 L of greenish brown liquid which was aspirated along with some stool. There is a possibility that the patient may have a previous area of spontaneous perforation and this fluid may have been aspirated possibly from the peritoneal cavity. The colonoscope was not advanced beyond this area. Surgery Dr Krishna, will perform exploratory laparotomy due to the possibility of bowel ischemia, risk and benefits were explained to the mother, the possibility of colostomy was also discussed, stop TPN, continue suction 12/27/24 The patient underwent exploratory laparotomy, during which approximately 2 liters of purulent fluid were drained. Extensive fibrinous adhesions were noted throughout the peritoneal cavity, necessitating adhesiolysis and removal of intraperitoneal fibrin. Due to significant inflammation and concern for bowel integrity, the surgical team avoided aggressive mobilization. No evidence of gastrointestinal perforation was identified. Four Jeanmarie-Dooley drains were placed, and the cavity was copiously irrigated with 10 liters of saline. Postoperatively, the patient exhibited elevated peak airway pressures and severe respiratory acidosis. Ventilator settings were transitioned to pressure control, and bronchodilator therapy was initiated for wheezing. A bicarbonate drip was started with subsequent improvement in acid-base status. The patient is on broad-spectrum antimicrobials including meropenem, vancomycin, and micafungin, along with antipyretics and analgesia using IV acetaminophen and ketorolac. 12/28/24: today respiratory alkalosis, pressure control was changed to volume control, ABG after better, dc bicarb drip, continue LR75 cc/h, SHIRLENE drainage moderate, bronchospam is better, xray showed congestion, one dose of furosemide given 12/29/24 - patient had large colonic abscess, this was drained by surgery. Surgery has patient is strict NPO. OG suction yesterday had 400 cc dark green. There is also a Dobbhoff that is not being used only for surgical use. Patient is on sedation, no CPAP or sedation vacation trials per primary team. Currently drips are Versed 15, propofol 45, fentanyl 325, TPN 46. Continuing broad- spectrum antibiotics vancomycin/meropenem/micafungin. On exam patient is anasarca, albumin very low 2.5. We will match fluids, schedule Lasix 40 IV daily. Yesterday urine output was 800, today we will give 600 cc fluids only. Patient ventilator a.c. 16/4 70/30%/5.0. Recent echo EF was normal and no abnormalities. Patient has history of drug abuse, suspect renal disease nephrotic or similar causing low protein state and/or liver disease. Patient may need albumin infusion. Patient has leukocytosis, reactive thrombocytosis. Holding off Lovenox due to hemoglobin drop from 11-8. We will repeat a hemoglobin today. SHIRLENE drain with serosanguineous output. We are holding off Lovenox instead we will do SCDs. 12/30/2024 patient continues to have fevers cooling measures are being applied. Continues to remain sedated drips include Versed 15 propofol 50 fentanyl 350. We will also replete electrolytes and have TPN at 50. Patient is making good urine output Lasix 40 IV daily is being continued patient has reducing sarcoid Muniz. Bag currently with 1.6 L. We will give 1.2 L over 24 hours today. Vital signs mild tachycardia low 100s. Mechanically ventilated a.c./20/470/100%/5.0.. Surgery is not planning another OR operation, we will try sedation vacation today. No CPAP trial today. If patient does well with sedation vacation today may try CPAP trial tomorrow. Cultures are growing VRE. We will change vancomycin to linezolid. Current antibiotics we will now be linezolid/meropenem/micafungin. 02/11 - Overnight, patient is afebrile, tachycardic into 120s but Sinus, tachypneic intermittently, normotensive, on TPs at 10 L with 35% FiO2. Urine output 1400, stool output 2-5 cc from colostomy. Patient is sitting in the chair comfortably, CBC stable, CMP unremarkable, started clear liquid diet. DC Precedex today. dc navarrete 02/13 - patient seen, axo3, onto chair, on cl liq diet, transitioning to eliquis, , restraining bands for PT, meds to po, dc micafungin, zyvox PO, ensure added 02/14 - patient seen and examined, reports neuropathic pain, started gabapentin 300 mg TID, Levaquin since to p.o.. Started pureed diet. Trach downsized to 4.0 shiley, brief episode of desaturation to 88, improved on 5 L 02/15 - patient seen and examined, onto chair, on room air, PT on board. 02/16: Patient is seen at bedside today. He is doing well continuing treatment as primary team's plan continuing pain control with fentanyl patch. We will add Toradol for severe continue [place] for moderate. Patient is complaining of trouble sleeping we will give trazodone 50 HS scheduled. PT at bedside we will continue working PT. Continue primary team's treatment plan otherwise. 02/17: Stable today no further requests from patient. Continues to work with PT has been getting out of bed into chair. Reviewed: Care Plan, H&P, Labs, Medications, Previous Orders, Radiology, Other (Consultations) Changes from previous H/P or p: No Changes General: Per HPI Objective Vitals Vital Signs Date Time Temp Pulse Resp B/P (MAP) Pulse Ox O2 Delivery O2 Flow Rate FiO2 02/17/25 08:15 138/90 02/17/25 08:00 98.0 94 24 95 98.0 02/17/25 08:00 Room Air* 0 21 Intake/Output Intake and Output 02/17/25 06:59 Intake Total 2040 ml Output Total 1550 ml Balance 490 ml Intake Oral 1940 ml IV Total 100 ml Output Urine Total 900 ml Stool Total 650 ml # Voids 2 # Bowel Movements 1 Exam General: Well-built, afebrile, palor, mucosae are moist Cardiovascular: Tachycardic but Regular S1 and S2. No murmurs, gallops or rubs. No JVD elevation. No pedal edema Respiratory: Normal B/L air entry RA bilateral equal air entry Abdomen: Soft, nontender, nondistended, normoactive bowel sounds, no rebound tenderness, no organomegaly, no masses Genitourinary: Navarrete dc MSK/skin: Patient is ambulating Neurological: Pupils are isocoric and reactive. Psych/Mental Status: A/Ox3 General Appearance: Alert HEENT: Atraumatic, PERRLA, Other (Tracheostomy in place; Dobbhoff tube in place ) Lungs: Clear to auscultation, Normal air movement, Other Cardiovascular: Regular rate, Normal S1, Normal S2, No murmurs Abdomen: Normal bowel sounds, Soft, Other (Midline surgical wound with wound VAC; SHIRLENE drain with serosanguineous fluid; colostomy with very minimal amount of greenish fluid) Genitourinary: Other (Navarrete's in place) Neuro: Other (Sedated) Skin: Wounds (See nurse notes and pictures), Other (Please kindly refer to nursing documentation) Psych/Mental Status: Other (Sedated) Medications Current Medications Medications Dose Ordered Sig/Sherron Route Start Time Stop Time Status Last Admin Dose Admin Sodium Chloride 40 meq/Potassium Chloride 40 meq/ Potassium Phosphate 11 meq/ Calcium Gluconate 2.3 meq/Magnesium Sulfate 8 meq/ Multivitamins 10 ml/Chromium/ Copper/Manganese/ Zinc 1 ml/Amino Acids/Dextrose/ Purified Water 1,450.4462 ml @ 60 mls/hr [id number] IV 12/26/24 22:00 12/27/24 21:59 Cancel Sodium Chloride 10 ml QSHIFT@10,22 IV 12/27/24 22:00 02/16/25 22:17 10 ML Artificial Tears 1 drop Q6HP PRN EACHEYE 12/29/24 23:45 01/06/25 09:00 1 DROP Ketamine HCl 50 mg [id number] PRN IV 01/04/25 15:00 01/05/25 07:00 Cancel Sodium Chloride 120 meq/Potassium Chloride 50 meq/ Potassium Acetate 50 meq/Calcium Gluconate 4.65 meq/Magnesium Sulfate 34 meq/ Multivitamins 10 ml/Chromium/ Copper/Manganese/ Zinc 1 ml/Amino Acids/Dextrose/ Purified Water 1,659.5 ml @ 68.108 mls/hr [id number] IV 01/09/25 22:00 01/10/25 21:59 Cancel Sodium Chloride 100 meq/Potassium Chloride 50 meq/ Calcium Gluconate 4.65 meq/ Magnesium Sulfate 34 meq/ Multivitamins 10 ml/Chromium/ Copper/Manganese/ Zinc 1 ml/Sodium Phosphate 20 meq/ Potassium Acetate 50 meq/Amino Acids/Dextrose/ Purified Water 1,659.5 ml @ 68.537 mls/hr [id number] IV 01/09/25 09:30 01/09/25 21:59 Cancel Folic Acid 1 mg DAILY PO 01/20/25 10:00 02/16/25 10:50 1 MG Acetaminophen 650 mg Q6HP PRN GT 01/22/25 10:15 02/10/25 13:20 650 MG Mupirocin 1 applic BID EACHNOSTRI 01/27/25 22:00 02/01/25 21:59 UNV Acetylcysteine 200 mg Q6HR NEB 02/06/25 12:00 02/17/25 06:00 200 MG Ipratropium [place] 0.5 mg Q6HR NEB 02/06/25 12:00 02/17/25 06:32 0.5 MG Lorazepam 1 mg ONCE PRN IV 02/06/25 10:45 02/15/25 15:29 1 MG Levalbuterol HCl 1.25 mg Q6HR NEB 02/06/25 18:00 02/17/25 06:32 1.25 MG Fentanyl 75 mcg Q72H TD 02/08/25 08:15 02/17/25 08:15 75 MCG Acetaminophen/ Hydrocodone Bitart 1 tab Q4HPRN PRN PO 02/10/25 13:45 02/17/25 06:51 1 TAB Ondansetron HCl 4 mg Q4HPRN PRN IV 02/12/25 05:00 02/13/25 21:44 4 MG Lorazepam 1 mg Q8HP PRN IV 02/12/25 16:15 02/16/25 20:04 1 MG Sucralfate 1 gm BID@0600,2200 PO 02/12/25 17:15 02/17/25 06:20 1 GM Lactulose 30 ml DAILY PO 02/13/25 10:00 02/16/25 10:50 30 ML Pantoprazole Sodium 40 mg BID@0600,1700 PO 02/13/25 17:00 02/17/25 06:20 40 MG Enteral Nutritional Formula 240 ml TIDWM PO 02/13/25 18:00 Hold Linezolid 600 mg BID PO 02/13/25 22:00 02/16/25 22:19 600 MG Valproate Sodium 250 mg BID PO 02/13/25 22:00 02/16/25 22:17 250 MG Enteral Nutritional Formula 240 ml TIDWM PO 02/13/25 18:00 02/17/25 08:00 240 ML Ergocalciferol 50,000 unit Q7D PO 02/14/25 07:30 02/14/25 08:50 50,000 UNIT Propranolol HCl 20 mg BID PO 02/14/25 22:00 02/16/25 22:20 20 MG Apixaban 5 mg BID PO 02/14/25 22:00 02/16/25 22:19 5 MG Gabapentin 300 mg TID PO 02/14/25 14:00 02/17/25 06:20 300 MG Levofloxacin 750 mg DAILY PO 02/15/25 10:00 02/16/25 10:54 750 MG Psyllium Hydrophilic Mucilloid 1 pkg DAILY GT 02/15/25 10:00 02/16/25 10:42 1 PKG Levetiracetam 750 mg BID PO 02/15/25 10:15 02/16/25 22:18 750 MG Trazodone HCl 50 mg HS PO 02/16/25 22:00 02/18/25 22:00 02/16/25 22:19 50 MG Ketorolac Tromethamine 15 mg Q6HPRN PRN IV 02/16/25 10:15 02/18/25 22:00 02/17/25 03:25 15 MG Laboratory Results Laboratory Tests 02/17/25 03:19 Chemistry Test 02/16/25 13:45 02/17/25 03:19 Magnesium Level 1.9 mg/dL (1.6-2.6) 1.7 mg/dL (1.6-2.6) Calcium Level 9.2 mg/dL (8.7-10.4) Urinalysis Test 12/18/24 08:16 Urine Color Dark-brown (Yellow) Urine Clarity Ex.turbid (Clear) Urine pH 6.0 (5.0-9.0) Urine Specific [place] 1.041 (1.001-1.035) Urine Protein 1+ (Negative) H Urine Ketones Negative (Negative) Urine Blood Trace /uL (Negative) H Urine Nitrite Negative (Negative) Urine Bilirubin Negative (Negative) Urine Urobilinogen Normal mg/dL (Negative) Urine Leukocyte Esterase Negative /uL (Negative) Urine RBC 30 /hpf (0 - 3) Urine WBC Clumps Present /hpf (None Seen) Urine Microscopic WBC 151 /HPF (0-3) H Urine Squamous Epithelial Cells None seen /hpf (<5) Urine Bacteria None seen /hpf (None Seen) Urine Mucus Few (None Seen) Urine Glucose Normal mg/dL (Normal) Microbiology Microbiology Date/Time Source Procedure Growth Status 02/07/25 02:15 Urine - Navar[place] Urine Culture - Final Complete 01/22/25 18:44 Blood Blood Culture - Final NO GROWTH AFTER 5 DAYS OF INCUBATION. Complete 01/18/25 10:40 Sputum Gram Stain - Final Complete 01/18/25 10:40 Sputum Respiratory Culture - Final Complete 01/05/25 08:15 Other Abscess Gram Stain - Final Complete 01/05/25 08:15 Other Abscess Anaerobic Culture - Final Complete 01/05/25 08:15 Aerobic Culture - Final Enterococcus faecium - VRE Complete 01/05/25 08:02 Peritoneal Fluid Gram Stain - Final Complete 01/05/25 08:02 Peritoneal Fluid Anaerobic Culture - Final Complete 01/05/25 08:02 Aerobic Culture - Final Enterococcus faecium - VRE Citrobacter freundii Vanc Resistant Enterococcus Complete Labs and/or images reviewed: Labs reviewed by me, Image(s) reviewed by me Assessment/Plan Assessment/Plan NEURO: Acute metabolic encephalopathy likely due to in-hospital delirium History of epilepsy Wheelchair-bound 2022 status post fall Continue valproate twice daily Diphenhydramine q.6 p.r.n. for agitation, Librium 25 mg TID Keppra b.i.d. Olanzapine 10 mg daily CARDIOVASCULAR: Septic shock likely due to intra-abdominal sepsis Sinus tachycardia Propranolol 20mg tid PULMONARY: Acute hypoxic respiratory failure status post intubation status post tracheostomy 01/05 downsized to 6 Likely acute respiratory distress syndrome-non cardiogenic pulmonary edema- resolving Pleural effusion status post thoracocentesis Nebulized treatments daily GASTROINTESTINAL: Intractable pain secondary to Intra-abdominal sepsis with VRE and peritonitis status post exploratory laparotomy x2 01/05 and 12/27 Status post bowel resection and colostomy Intra-abdominal abscess Splenic fluid collection Pantoprazole 40 mg PO zyvox PO 600 bid, levaquin IV daily 02/12 switched to p.o. 02/14 DC micafungin daily Fentanyl patch 75 mcg, deescalate GENITOURINARY: DC Navarrete catheter METABOLIC: Hypoalbuminemia Moderate to severe protein calorie malnutrition Ensure TID HEMATOLOGY/ONCOLOGY Right upper extremity DVT 01/09 Left upper extremity superficial thrombosis Anemia likely normocytic status post 3 packed RBC transfusion Thrombocytosis Lovenox 70 mg b.i.d. to eliquis 02/13 Iron profile consistent with anemia of chronic disease INFECTIOUS DISEASE: Intra-abdominal sepsis with VRE zyvox PO 600 bid, levaquin IV daily 02/12 DC micafungin daily MUSCULOSKELETAL Chronic open dependence Neuropathic Pain Gabapentin 300mg tid Thiamine and folic acid daily Vitamin-D deficiency Supplemented DIET: Pureed diet DVT prophylaxis, Eliquis GI prophylaxis: Protonix Code status: Full code LINES/DRAINS/ACCESS: IV access: Left femoral central line 01/28 till 02/11, peripheral IV is inserted Drips: Tube feedings Navarrete catheter dc 02/11 DISPOSITION: ICU Plan discussed with: Other My Orders Orders - MOSES CUMMINS MD Procedure Category Date Status Time Trazodone Hcl PHA 02/16/25 In Process (Desyrel) 22:00 Ketorolac Injection PHA 02/16/25 In Process (Toradol Injection) 10:15 Magnesium Sulfate PHA 02/17/25 In Process 1gm/100ml 09:45 Date of Service: Feb 17, 2025 Billing Provider: MOSES CUMMINS MD Common Visit Codes: 59984-[id number] CARE 30-74 MIN MOSES CUMMINS MD Feb 17, 2025 09:46
[2025-02-17] MEDS: MAGNESIUM SULFATE 1GM/100ML 100 ML IV ONE (10:11)
[2025-02-17] MEDS ORDERED: LORazepam 0.5 MG TAB PO PRN (17:15)
[2025-02-17] MEDS: LORazepam 0.5 MG TAB PO PRN (18:38)
--- NOTE | 2025-02-17 21:45 | DVHPN2 ---
Progress Note - Dictate Date Seen: Feb 17, 2025 Has the PT tested + for MRSA If YES, has PT been informed?: No Medical Necessity Reason Pt with a Central, PICC or Fol: No Reason for navarrete catheter: Strict I&O Subjective Patient is stable from a GI point of view Patient is tolerating pureed diet and requesting diet to be advanced Colostomy is functional Patient was out of bed to chair Tracheostomy has been downsized No active GI bleeding reported Leukocytosis and thrombocytosis improving vital signs Vital Sign Date Time Temp Pulse Resp B/P (MAP) Pulse Ox O2 Delivery O2 Flow Rate FiO2 02/17/25 18:36 91 18 100 02/17/25 18:21 Room Air* 0 21 02/17/25 18:00 130/95 (107) 02/17/25 16:00 98.7 98.7 Total Intake and Output 02/16/25 02/16/25 02/17/25 15:00 23:00 07:00 Intake Total 690 ml 750 ml 600 ml Output Total 1100 ml 450 ml Balance 690 ml -350 ml 150 ml medications Current Medications Medications Dose Ordered Sig/Sherron Route Start Time Stop Time Status Last Admin Dose Admin Sodium Chloride 40 meq/Potassium Chloride 40 meq/ Potassium Phosphate 11 meq/ Calcium Gluconate 2.3 meq/Magnesium Sulfate 8 meq/ Multivitamins 10 ml/Chromium/ Copper/Manganese/ Zinc 1 ml/Amino Acids/Dextrose/ Purified Water 1,450.4462 ml @ 60 mls/hr [id number] IV 12/26/24 22:00 12/27/24 21:59 Cancel Sodium Chloride 10 ml QSHIFT@10,22 IV 12/27/24 22:00 02/17/25 10:08 10 ML Artificial Tears 1 drop Q6HP PRN EACHEYE 12/29/24 23:45 01/06/25 09:00 1 DROP Ketamine HCl 50 mg [id number] PRN IV 01/04/25 15:00 01/05/25 07:00 Cancel Sodium Chloride 120 meq/Potassium Chloride 50 meq/ Potassium Acetate 50 meq/Calcium Gluconate 4.65 meq/Magnesium Sulfate 34 meq/ Multivitamins 10 ml/Chromium/ Copper/Manganese/ Zinc 1 ml/Amino Acids/Dextrose/ Purified Water 1,659.5 ml @ 68.108 mls/hr [id number] IV 01/09/25 22:00 7/24/25 21:59 Cancel Sodium Chloride 100 meq/Potassium Chloride 50 meq/ Calcium Gluconate 4.65 meq/ Magnesium Sulfate 34 meq/ Multivitamins 10 ml/Chromium/ Copper/Manganese/ Zinc 1 ml/Sodium Phosphate 20 meq/ Potassium Acetate 50 meq/Amino Acids/Dextrose/ Purified Water 1,659.5 ml @ 68.537 mls/hr [id number] IV 01/09/25 09:30 01/09/25 21:59 Cancel Folic Acid 1 mg DAILY PO 01/20/25 10:00 02/17/25 10:08 1 MG Acetaminophen 650 mg Q6HP PRN GT 01/22/25 10:15 02/10/25 13:20 650 MG Mupirocin 1 applic BID EACHNOSTRI 01/27/25 22:00 02/01/25 21:59 UNV Acetylcysteine 200 mg Q6HR NEB 02/06/25 12:00 02/17/25 18:21 200 MG Ipratropium [place] 0.5 mg Q6HR NEB 02/06/25 12:00 02/17/25 18:21 0.5 MG Lorazepam 1 mg ONCE PRN IV 02/06/25 10:45 02/15/25 15:29 1 MG Levalbuterol HCl 1.25 mg Q6HR NEB 02/06/25 18:00 02/17/25 18:21 1.25 MG Fentanyl 75 mcg Q72H TD 02/08/25 08:15 02/17/25 08:15 75 MCG Acetaminophen/ Hydrocodone Bitart 1 tab Q4HPRN PRN PO 02/10/25 13:45 02/17/25 19:16 1 TAB Ondansetron HCl 4 mg Q4HPRN PRN IV 02/12/25 05:00 02/13/25 21:44 4 MG Sucralfate 1 gm BID@0600,2200 PO 02/12/25 17:15 02/17/25 06:20 1 GM Lactulose 30 ml DAILY PO 02/13/25 10:00 02/17/25 10:08 30 ML Pantoprazole Sodium 40 mg BID@0600,1700 PO 02/13/25 17:00 02/17/25 16:38 40 MG Enteral Nutritional Formula 240 ml TIDWM PO 02/13/25 18:00 Hold Linezolid 600 mg BID PO 02/13/25 22:00 02/17/25 10:08 600 MG Valproate Sodium 250 mg BID PO 02/13/25 22:00 02/17/25 10:11 250 MG Enteral Nutritional Formula 240 ml TIDWM PO 02/13/25 18:00 02/17/25 17:58 240 ML Ergocalciferol 50,000 unit Q7D PO 02/14/25 07:30 02/14/25 08:50 50,000 UNIT Propranolol HCl 20 mg BID PO 02/14/25 22:00 02/17/25 10:09 20 MG Apixaban 5 mg BID PO 02/14/25 22:00 02/17/25 10:08 5 MG Gabapentin 300 mg TID PO 02/14/25 14:00 02/17/25 13:57 300 MG Levofloxacin 750 mg DAILY PO 02/15/25 10:00 02/17/25 10:10 750 MG Psyllium Hydrophilic Mucilloid 1 pkg DAILY GT 02/15/25 10:00 02/17/25 10:08 1 PKG Levetiracetam 750 mg BID PO 02/15/25 10:15 02/17/25 10:09 750 MG Trazodone HCl 50 mg HS PO 02/16/25 22:00 02/18/25 22:00 02/16/25 22:19 50 MG Ketorolac Tromethamine 15 mg Q6HPRN PRN IV 02/16/25 10:15 02/18/25 22:00 02/17/25 16:38 15 MG Lorazepam 2 mg Q6HP PRN PO 02/17/25 18:15 02/17/25 18:38 2 MG objective General Appearance: s/p trach on ventilator agitated, overbreathing, trashing around PERRLA MMM mechanical breath sounds s1 s2 tachy abdomen with surg scar and colostomy Abdominal: Binder in place, soft, distended, no bowel sounds; minimal colostomy liquid output Extremities: No clubbing, No cyanosis, No edema, Normal pulses, No tenderness/swelling laboratory and microbiology Laboratory Tests 02/17/25 03:19 Test 02/17/25 03:19 Range/Units Serum Glucose 117 H 74-106 mg/dL Problems(with codes): (1) Sigmoid colon injury (2) Septicemia due to vancomycin resistant Enterococcus (VRE) species (3) Peritonitis (4) Constipation (5) Acute respiratory failure (6) Sepsis, unspecified organism (7) Generalized weakness (8) Acute abdominal pain (9) Leukocytosis Prognosis Plan Advance to soft mechanical diet Possible capping of tracheostomy next week Continue physical therapy Dietary Evaluation Review Comments: 1. TF: Vital AF@50ml/hr (90g protein, 1440kcal 973 free water) meeting Protein needs 83%, energy needs 80%. 2. TPN per pharmacy meeting 75% of his needs if TF not feasible or NPO>7 days. 3. Diet as tolerated per SLEEVE PRESSER OPERATOR eval when off Vent Expected Outcomes/Goals: Preventing catabolism Plan discussed with: Patient, Other (ICU Nurse) MAO COLEMAN MD Feb 17, 2025 21:45
--- NOTE | 2025-02-17 23:08 | DVHPN2 ---
Progress Note - Dictate Date Seen: Feb 17, 2025 Has the PT tested + for MRSA If YES, has PT been informed?: No Medical Necessity Reason Pt with a Central, PICC or Fol: No Reason for navarrete catheter: Strict I&O Subjective Patient seen and examined at bedside. Trach in place. Breathing on room air. Overnight events reviewed vital signs Vital Sign Date Time Temp Pulse Resp B/P (MAP) Pulse Ox O2 Delivery O2 Flow Rate FiO2 02/17/25 22:00 91 02/17/25 22:00 19 95 Room Air* 0 21 02/17/25 21:47 126/66 02/17/25 20:00 98.8 98.8 Total Intake and Output 02/16/25 02/16/25 02/17/25 15:00 23:00 07:00 Intake Total 690 ml 750 ml 600 ml Output Total 1100 ml 450 ml Balance 690 ml -350 ml 150 ml medications Current Medications Medications Dose Ordered Sig/Sherron Route Start Time Stop Time Status Last Admin Dose Admin Sodium Chloride 40 meq/Potassium Chloride 40 meq/ Potassium Phosphate 11 meq/ Calcium Gluconate 2.3 meq/Magnesium Sulfate 8 meq/ Multivitamins 10 ml/Chromium/ Copper/Manganese/ Zinc 1 ml/Amino Acids/Dextrose/ Purified Water 1,450.4462 ml @ 60 mls/hr [id number] IV 12/26/24 22:00 12/27/24 21:59 Cancel Sodium Chloride 10 ml QSHIFT@10,22 IV 12/27/24 22:00 02/17/25 22:10 10 ML Artificial Tears 1 drop Q6HP PRN EACHEYE 12/29/24 23:45 01/06/25 09:00 1 DROP Ketamine HCl 50 mg [id number] PRN IV 01/04/25 15:00 01/05/25 07:00 Cancel Sodium Chloride 120 meq/Potassium Chloride 50 meq/ Potassium Acetate 50 meq/Calcium Gluconate 4.65 meq/Magnesium Sulfate 34 meq/ Multivitamins 10 ml/Chromium/ Copper/Manganese/ Zinc 1 ml/Amino Acids/Dextrose/ Purified Water 1,659.5 ml @ 68.108 mls/hr [id number] IV 01/09/25 22:00 01/10/25 21:59 Cancel Sodium Chloride 100 meq/Potassium Chloride 50 meq/ Calcium Gluconate 4.65 meq/ Magnesium Sulfate 34 meq/ Multivitamins 10 ml/Chromium/ Copper/Manganese/ Zinc 1 ml/Sodium Phosphate 20 meq/ Potassium Acetate 50 meq/Amino Acids/Dextrose/ Purified Water 1,659.5 ml @ 68.537 mls/hr [id number] IV 01/09/25 09:30 01/09/25 21:59 Cancel Folic Acid 1 mg DAILY PO 01/20/25 10:00 02/17/25 10:08 1 MG Acetaminophen 650 mg Q6HP PRN GT 01/22/25 10:15 02/10/25 13:20 650 MG Mupirocin 1 applic BID EACHNOSTRI 01/27/25 22:00 02/01/25 21:59 UNV Acetylcysteine 200 mg Q6HR NEB 02/06/25 12:00 02/17/25 18:21 200 MG Ipratropium [place] 0.5 mg Q6HR NEB 02/06/25 12:00 02/17/25 18:21 0.5 MG Lorazepam 1 mg ONCE PRN IV 02/06/25 10:45 02/15/25 15:29 1 MG Levalbuterol HCl 1.25 mg Q6HR NEB 02/06/25 18:00 02/17/25 18:21 1.25 MG Fentanyl 75 mcg Q72H TD 02/08/25 08:15 02/17/25 08:15 75 MCG Acetaminophen/ Hydrocodone Bitart 1 tab Q4HPRN PRN PO 02/10/25 13:45 02/17/25 19:16 1 TAB Ondansetron HCl 4 mg Q4HPRN PRN IV 02/12/25 05:00 02/13/25 21:44 4 MG Sucralfate 1 gm BID@0600,2200 PO 02/12/25 17:15 02/17/25 21:41 1 GM Lactulose 30 ml DAILY PO 02/13/25 10:00 02/17/25 10:08 30 ML Pantoprazole Sodium 40 mg BID@0600,1700 PO 02/13/25 17:00 02/17/25 16:38 40 MG Enteral Nutritional Formula 240 ml TIDWM PO 02/13/25 18:00 Hold Linezolid 600 mg BID PO 02/13/25 22:00 02/17/25 21:45 600 MG Valproate Sodium 250 mg BID PO 02/13/25 22:00 02/17/25 21:43 250 MG Enteral Nutritional Formula 240 ml TIDWM PO 02/13/25 18:00 02/17/25 17:58 240 ML Ergocalciferol 50,000 unit Q7D PO 02/14/25 07:30 02/14/25 08:50 50,000 UNIT Propranolol HCl 20 mg BID PO 02/14/25 22:00 02/17/25 21:47 20 MG Apixaban 5 mg BID PO 02/14/25 22:00 02/17/25 21:46 5 MG Gabapentin 300 mg TID PO 02/14/25 14:00 02/17/25 21:45 300 MG Levofloxacin 750 mg DAILY PO 02/15/25 10:00 02/17/25 10:10 750 MG Psyllium Hydrophilic Mucilloid 1 pkg DAILY GT 02/15/25 10:00 02/17/25 10:08 1 PKG Levetiracetam 750 mg BID PO 02/15/25 10:15 02/17/25 21:46 750 MG Trazodone HCl 50 mg HS PO 02/16/25 22:00 02/18/25 22:00 02/16/25 22:19 50 MG Ketorolac Tromethamine 15 mg Q6HPRN PRN IV 02/16/25 10:15 02/18/25 22:00 02/17/25 16:38 15 MG Lorazepam 2 mg Q6HP PRN PO 02/17/25 18:15 02/17/25 18:38 2 MG objective Gen.: Patient lying in bed in no apparent distress. Breathing on room air. Head: Normocephalic, atraumatic. Eyes: EOMI/PERRLA. Ears: Normal hearing. Normal anatomy. Neck/trachea: Trach in place. Nose: Normal external anatomy. Mouth: Moist mucous membranes. Chest: Decreased air entry bilaterally. No wheezing or rhonchi. Cardiovascular: Positive S1, positive S2. Regular rate and rhythm. Abdomen: Positive bowel sounds in all 4 quadrants. Soft, non-tender, non- distended. : Deferred. Rectal: Deferred. Skin: Warm, dry. Intact. Extremities: 2+ radial pulses bilaterally. No lower extremity edema. Neuro: Awake, alert, oriented x3. No gross motor or sensory deficits. Cranial nerves II through XII intact. Gait not assessed. laboratory and microbiology Laboratory Tests 02/17/25 03:19 Test 02/17/25 03:19 Range/Units Serum Glucose 117 H 74-106 mg/dL Assessment/Plan Impression: Acute hypoxic respiratory failure S/p tracheostomy Fluid overload Sepsis Right upper extremity DVT S/p exploratory laparotomy Events: Remains on room air, trach in place. Note, patient had trach dislodgement yesterday and trach was replaced. It was downsized on 02/15/25. Continue trach care per RT [place] valve. Wound care Continue antibiotics. Continue bronchodilators. Supportive care Colostomy functioning well. On Carafate Lactulose Protonix for GI ppx Follow up GI recs On puree diet Eliquis BID Continue antiepileptic with Keppra Pain control Avoid oversedation Continue physical therapy. Patient out of bed to chair. Labs and imaging reviewed. Rest of plan as noted below. Plan: s/p tracheostomy Place on full vent support if any distress. Trach care Continue antibiotics. F/u cultures. Continue bronchodilators S/p ex-lap and colostomy. Follow up GI/Surgery recommendations On Carafate Protonix for GI ppx On puree diet. Pain control Avoid oversedation Physical therapy. Monitor renal function Monitor electrolytes. Supplement as necessary. Monitor ins and outs. GI/DVT prophylaxis. Prognosis: Poor given patient's multiple co-morbidities. Rest of plan per hospitalist and other consultants. Thank you, Dr. Brennan, for allowing me to participate in this patient's care. Further recommendations will depend on the patient's clinical course. Please do not hesitate to contact me if you have any questions or concerns. This medical document was created using an electronic medical record system with [employer] dictation system. Although these documentations are being carefully reviewed, there may still be some phonetic and typographical changes. The errors are purely typographical, due to imperfection on the software program, and do not reflect any compromise in the patient's medical care. Dietary Evaluation Review Comments: 1. TF: Vital AF@50ml/hr (90g protein, 1440kcal 973 free water) meeting Protein needs 83%, energy needs 80%. 2. TPN per pharmacy meeting 75% of his needs if TF not feasible or NPO>7 days. 3. Diet as tolerated per CURING PRESS OPERATOR eval when off Vent Expected Outcomes/Goals: Preventing catabolism Plan discussed with: Patient, Other (AISHA Vogel) QUINN LANDON MD Feb 17, 2025 23:08
[2025-02-18] VITALS (31 sets, daily range): BP systolic 86–142; BP diastolic 44–104; PULSE 83–116; RESP 12–28; TEMP 97.8–98.5; O2SAT 86–100
[2025-02-18 03:52] LABS: Hematocrit 27.1 % (41.0-53.0); Hemoglobin 9.2 g/dL (13.5-17.5); Mean Corpuscular Hemoglobin 28.4 pg (28.0-32.0); Mean Corpuscular Volume 83.8 fL (80.0-100.0); Nucleated Red Blood Cells % 0.0 %
[2025-02-18 04:14] LABS: Alanine Aminotransferase 14 U/L (7-40); Albumin 3.7 g/dL (3.2-4.8); Alkaline Phosphatase 81 U/L (46-116); Anion Gap 9 (5-15); BUN/Creatinine Ratio 18.1 (10.0-20.0); Blood Urea Nitrogen 13 mg/dL (9-23); Calcium 8.9 mg/dL (8.7-10.4); Carbon Dioxide 26 mmol/L (20-31); Chloride 100 mmol/L (98-107); Glucose 103 mg/dL (74-106); Magnesium 1.7 mg/dL (1.6-2.6); Potassium 4.5 mmol/L (3.5-5.1); Total Protein 6.5 g/dL (5.7-8.2)
[2025-02-18 04:33] LABS: Bilirubin, Total 0.2 mg/dL (0.2-1.0); Sodium 135 mmol/L (136-145)
[2025-02-18] MEDS: MAGNESIUM SULFATE 1GM/100ML 100 ML IV ONE (05:15)
--- NOTE | 2025-02-18 11:44 | DVHPN2 ---
Progress Note Date Seen: Feb 18, 2025 Resident Creating Document: ROBYN CARRANZA RESIDENT Has the PT tested + for MRSA If YES, has PT been informed?: No Medical Necessity Reason Pt with a Central, PICC or Fol: No Reason for navarrete catheter: Strict I&O Subjective Review of Systems Patient seen and examined at bedside Stable from GI point of view Reports good appetite, denies any nausea or vomiting No abdominal pain No heartburn Colostomy output 475 mL, soft brown overnight. Objective vital signs Vital Sign Date Time Temp Pulse Resp B/P (MAP) Pulse Ox O2 Delivery O2 Flow Rate FiO2 02/18/25 09:44 101 119/78 02/18/25 06:51 15 100 02/18/25 06:41 Room Air* 0 21 02/18/25 04:00 97.8 97.8 Total Intake and Output 02/17/25 02/17/25 02/18/25 15:00 23:00 07:00 Intake Total 840 ml 1140 ml 240 ml Output Total 700 ml 650 ml Balance 840 ml 440 ml -410 ml medications Current Medications Medications Dose Ordered Sig/Sherron Route Start Time Stop Time Status Last Admin Dose Admin Sodium Chloride 40 meq/Potassium Chloride 40 meq/ Potassium Phosphate 11 meq/ Calcium Gluconate 2.3 meq/Magnesium Sulfate 8 meq/ Multivitamins 10 ml/Chromium/ Copper/Manganese/ Zinc 1 ml/Amino Acids/Dextrose/ Purified Water 1,450.4462 ml @ 60 mls/hr [id number] IV 12/26/24 22:00 12/27/24 21:59 Cancel Sodium Chloride 10 ml QSHIFT@10,22 IV 12/27/24 22:00 02/18/25 08:48 10 ML Artificial Tears 1 drop Q6HP PRN EACHEYE 12/29/24 23:45 01/06/25 09:00 1 DROP Ketamine HCl 50 mg [id number] PRN IV 01/04/25 15:00 01/05/25 07:00 Cancel Sodium Chloride 120 meq/Potassium Chloride 50 meq/ Potassium Acetate 50 meq/Calcium Gluconate 4.65 meq/Magnesium Sulfate 34 meq/ Multivitamins 10 ml/Chromium/ Copper/Manganese/ Zinc 1 ml/Amino Acids/Dextrose/ Purified Water 1,659.5 ml @ 68.108 mls/hr [id number] IV 01/09/25 22:00 01/10/25 21:59 Cancel Sodium Chloride 100 meq/Potassium Chloride 50 meq/ Calcium Gluconate 4.65 meq/ Magnesium Sulfate 34 meq/ Multivitamins 10 ml/Chromium/ Copper/Manganese/ Zinc 1 ml/Sodium Phosphate 20 meq/ Potassium Acetate 50 meq/Amino Acids/Dextrose/ Purified Water 1,659.5 ml @ 68.537 mls/hr [id number] IV 01/09/25 09:30 01/09/25 21:59 Cancel Folic Acid 1 mg DAILY PO 01/20/25 10:00 02/18/25 08:48 1 MG Acetaminophen 650 mg Q6HP PRN GT 01/22/25 10:15 02/10/25 13:20 650 MG Mupirocin 1 applic BID EACHNOSTRI 01/27/25 22:00 02/01/25 21:59 UNV Acetylcysteine 200 mg Q6HR NEB 02/06/25 12:00 02/18/25 06:41 200 MG Ipratropium [place] 0.5 mg Q6HR NEB 02/06/25 12:00 02/18/25 06:41 0.5 MG Lorazepam 1 mg ONCE PRN IV 02/06/25 10:45 02/15/25 15:29 1 MG Levalbuterol HCl 1.25 mg Q6HR NEB 02/06/25 18:00 02/18/25 06:41 1.25 MG Fentanyl 75 mcg Q72H TD 02/08/25 08:15 02/17/25 08:15 75 MCG Acetaminophen/ Hydrocodone Bitart 1 tab Q4HPRN PRN PO 02/10/25 13:45 02/18/25 08:46 1 TAB Ondansetron HCl 4 mg Q4HPRN PRN IV 02/12/25 05:00 02/13/25 21:44 4 MG Sucralfate 1 gm BID@0600,2200 PO 02/12/25 17:15 02/18/25 05:14 1 GM Lactulose 30 ml DAILY PO 02/13/25 10:00 02/18/25 08:48 30 ML Pantoprazole Sodium 40 mg BID@0600,1700 PO 02/13/25 17:00 02/18/25 05:15 40 MG Enteral Nutritional Formula 240 ml TIDWM PO 02/13/25 18:00 Hold Linezolid 600 mg BID PO 02/13/25 22:00 02/18/25 08:40 600 MG Valproate Sodium 250 mg BID PO 02/13/25 22:00 02/18/25 08:48 250 MG Enteral Nutritional Formula 240 ml TIDWM PO 02/13/25 18:00 02/18/25 08:49 240 ML Ergocalciferol 50,000 unit Q7D PO 02/14/25 07:30 02/14/25 08:50 50,000 UNIT Propranolol HCl 20 mg BID PO 02/14/25 22:00 02/18/25 09:44 20 MG Apixaban 5 mg BID PO 02/14/25 22:00 02/18/25 08:48 5 MG Gabapentin 300 mg TID PO 02/14/25 14:00 02/18/25 05:14 300 MG Levofloxacin 750 mg DAILY PO 02/15/25 10:00 02/18/25 08:48 750 MG Psyllium Hydrophilic Mucilloid 1 pkg DAILY GT 02/15/25 10:00 02/18/25 09:43 1 PKG Levetiracetam 750 mg BID PO 02/15/25 10:15 02/18/25 08:47 750 MG Trazodone HCl 50 mg HS PO 02/16/25 22:00 02/18/25 22:00 02/16/25 22:19 50 MG Ketorolac Tromethamine 15 mg Q6HPRN PRN IV 02/16/25 10:15 02/18/25 22:00 02/18/25 07:00 15 MG Lorazepam 2 mg Q6HP PRN PO 02/17/25 18:15 02/18/25 10:40 2 MG Examination Patient sitting comfortably in the chair, out of bed, well conversational, no acute distress General: Well-built, afebrile, palor, mucosae are moist Cardiovascular: Tachycardic but Regular S1 and S2. No murmurs, gallops or rubs. No JVD elevation. No pedal edema Respiratory: Normal B/L air entry RA bilateral equal air entry Abdomen: Soft, nontender, nondistended, normoactive bowel sounds, no rebound tenderness, no organomegaly, no masses Genitourinary: Michelle johnson MSK/skin: Patient is ambulating Neurological: Pupils are isocoric and reactive. Psych/Mental Status: A/Ox3 laboratory and microbiology Laboratory Tests 02/18/25 03:20 Test 02/18/25 03:20 Range/Units Serum Glucose 103 74-106 mg/dL Microbiology Date/Time Source Procedure Growth Status 02/07/25 02:15 Urine - [place] Urine Culture - Final Complete 01/22/25 18:44 Blood Blood Culture - Final NO GROWTH AFTER 5 DAYS OF INCUBATION. Complete 01/18/25 10:40 Sputum Gram Stain - Final Complete 01/18/25 10:40 Sputum Respiratory Culture - Final Complete 01/05/25 08:15 Other Abscess Gram Stain - Final Complete 01/05/25 08:15 Other Abscess Anaerobic Culture - Final Complete 01/05/25 08:15 Aerobic Culture - Final Enterococcus faecium - VRE Complete 01/05/25 08:02 Peritoneal Fluid Gram Stain - Final Complete 01/05/25 08:02 Peritoneal Fluid Anaerobic Culture - Final Complete 01/05/25 08:02 Aerobic Culture - Final Enterococcus faecium - VRE Citrobacter freundii Vanc Resistant Enterococcus Complete Labs and/or images reviewed: Labs reviewed by me, Image(s) reviewed by me Problem List/Assessment/Plan Problem List/Assessment/Plan Acute peritonitis S/P laparotomy with bowel resection with colostomy and abscess drainage Intra-abdominal sepsis, VRE/Citrobacter peritonitis Splenic fluid collection; CT abdomen pelvis from 01/25/2025: Trace ascites with component of loculation over the anterior lower abdomen left lateral upper abdomen. 6.1 x 1.5 x 11 cm loculated fluid over the left upper abdominal quadrant lateral to the spleen with a Left mid to lower abdominal approach drainage catheter terminating over the inferior portion of the fluid collection. The loculated fluid are marginally decreased in size from prior imaging. Sigmoid colon injury Acute hypoxic respiratory failure, s/p extubation with trach collar Constipation New onset heartburn/GERD Plan: Increased IV Protonix 40 mg 2 b.i.d. Added Carafate 1 g b.i.d. Monitor colostomy output for volume, consistency and viability Possible capping of tracheostomy next week Continue antibiotics Swallow evaluation Soft mechanical diet Thank you so much for the opportunity to consult on your patient. GI team will follow the patient. In case of any questions or concerns please feel free to reach out. Plan discussed with Dr. Bailey Plan discussed with: Patient, Other Dietary Evaluation Review Comments: 1. TF: Vital AF@50ml/hr (90g protein, 1440kcal 973 free water) meeting Protein needs 83%, energy needs 80%. 2. TPN per pharmacy meeting 75% of his needs if TF not feasible or NPO>7 days. 3. Diet as tolerated per [employer] DISTRICT LAW CLERK eval when off Vent Expected Outcomes/Goals: Preventing catabolism ROBYN ACRRANZA RESIDENT Feb 18, 2025 11:44
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
--- NOTE | 2025-02-18 15:48 | DVHPNRES ---
Progress Note Date Seen: Feb 18, 2025 Resident Creating Document: VALERIE HESTER RESIDENT Has the PT tested + for MRSA If YES, has PT been informed?: No Medical Necessity Reason Pt with a Central, PICC or Fol: No Reason for navarrete catheter: Strict I&O Subjective Review of Systems This is a 44-year-old male with a epilepsy, chronic pain syndrome on opiates, gout who is hospital stay has been prolonged secondary to acute peritonitis, intra-abdominal sepsis status post exploratory laparotomy 12/27 and repeated on 01/05, intra-abdominal sepsis with Citrobacter and VRE, perisplenic collection, status post colostomy and tracheostomy 01/05 and a right upper arm DVT 01/09 02/11 - Overnight, patient is afebrile, tachycardic into 120s but Sinus, tachypneic intermittently, normotensive, on TPs at 10 L with 35% FiO2. Urine output 1400, stool output 2-5 cc from colostomy. Patient is sitting in the chair comfortably, CBC stable, CMP unremarkable, started clear liquid diet. DC Precedex today. dc navarrete 02/13 - patient seen, axo3, onto chair, on cl liq diet, transitioning to eliquis, , restraining bands for PT, meds to po, dc micafungin, zyvox PO, ensure added 02/14 - patient seen and examined, reports neuropathic pain, started gabapentin 300 mg TID, Levaquin since to p.o.. Started pureed diet. Trach downsized to 4.0 shiley, brief episode of desaturation to 88, improved on 5 L 02/15 - patient seen and examined, onto chair, on room air, PT on board. 02/18 - patient on a chair, on room air, reports night terrors Objective vital signs Vital Sign Date Time Temp Pulse Resp B/P (MAP) Pulse Ox O2 Delivery O2 Flow Rate FiO2 02/18/25 15:00 96 20 134/89 (104) 95 02/18/25 14:00 Room Air* 0 21 02/18/25 12:01 97.8 97.8 Total Intake and Output 02/17/25 02/17/25 02/18/25 14:59 22:59 06:59 Intake Total 840 ml 1140 ml 240 ml Output Total 700 ml 650 ml Balance 840 ml 440 ml -410 ml medications Current Medications Medications Dose Ordered Sig/Sherron Route Start Time Stop Time Status Last Admin Dose Admin Sodium Chloride 40 meq/Potassium Chloride 40 meq/ Potassium Phosphate 11 meq/ Calcium Gluconate 2.3 meq/Magnesium Sulfate 8 meq/ Multivitamins 10 ml/Chromium/ Copper/Manganese/ Zinc 1 ml/Amino Acids/Dextrose/ Purified Water 1,450.4462 ml @ 60 mls/hr [id number] IV 12/26/24 22:00 12/27/24 21:59 Cancel Sodium Chloride 10 ml QSHIFT@10,22 IV 12/27/24 22:00 02/18/25 08:48 10 ML Artificial Tears 1 drop Q6HP PRN EACHEYE 12/29/24 23:45 01/06/25 09:00 1 DROP Ketamine HCl 50 mg [id number] PRN IV 01/04/25 15:00 01/05/25 07:00 Cancel Sodium Chloride 120 meq/Potassium Chloride 50 meq/ Potassium Acetate 50 meq/Calcium Gluconate 4.65 meq/Magnesium Sulfate 34 meq/ Multivitamins 10 ml/Chromium/ Copper/Manganese/ Zinc 1 ml/Amino Acids/Dextrose/ Purified Water 1,659.5 ml @ 68.108 mls/hr [id number] IV 01/09/25 22:00 01/10/25 21:59 Cancel Sodium Chloride 100 meq/Potassium Chloride 50 meq/ Calcium Gluconate 4.65 meq/ Magnesium Sulfate 34 meq/ Multivitamins 10 ml/Chromium/ Copper/Manganese/ Zinc 1 ml/Sodium Phosphate 20 meq/ Potassium Acetate 50 meq/Amino Acids/Dextrose/ Purified Water 1,659.5 ml @ 68.537 mls/hr [id number] IV 01/09/25 09:30 01/09/25 21:59 Cancel Folic Acid 1 mg DAILY PO 01/20/25 10:00 02/18/25 08:48 1 MG Acetaminophen 650 mg Q6HP PRN GT 01/22/25 10:15 02/10/25 13:20 650 MG Mupirocin 1 applic BID EACHNOSTRI 01/27/25 22:00 02/01/25 21:59 UNV Acetylcysteine 200 mg Q6HR NEB 02/06/25 12:00 02/18/25 06:41 200 MG Ipratropium [place] 0.5 mg Q6HR NEB 02/06/25 12:00 02/18/25 06:41 0.5 MG Lorazepam 1 mg ONCE PRN IV 02/06/25 10:45 02/15/25 15:29 1 MG Levalbuterol HCl 1.25 mg Q6HR NEB 02/06/25 18:00 02/18/25 06:41 1.25 MG Fentanyl 75 mcg Q72H TD 02/08/25 08:15 02/17/25 08:15 75 MCG Acetaminophen/ Hydrocodone Bitart 1 tab Q4HPRN PRN PO 02/10/25 13:45 02/18/25 14:59 1 TAB Ondansetron HCl 4 mg Q4HPRN PRN IV 02/12/25 05:00 02/13/25 21:44 4 MG Sucralfate 1 gm BID@0600,2200 PO 02/12/25 17:15 02/18/25 05:14 1 GM Lactulose 30 ml DAILY PO 02/13/25 10:00 02/18/25 08:48 30 ML Pantoprazole Sodium 40 mg BID@0600,1700 PO 02/13/25 17:00 02/18/25 05:15 40 MG Enteral Nutritional Formula 240 ml TIDWM PO 02/13/25 18:00 Hold Linezolid 600 mg BID PO 02/13/25 22:00 02/18/25 08:40 600 MG Valproate Sodium 250 mg BID PO 02/13/25 22:00 02/18/25 08:48 250 MG Enteral Nutritional Formula 240 ml TIDWM PO 02/13/25 18:00 02/18/25 13:30 240 ML Ergocalciferol 50,000 unit Q7D PO 02/14/25 07:30 02/14/25 08:50 50,000 UNIT Propranolol HCl 20 mg BID PO 02/14/25 22:00 02/18/25 09:44 20 MG Apixaban 5 mg BID PO 02/14/25 22:00 02/18/25 08:48 5 MG Levofloxacin 750 mg DAILY PO 02/15/25 10:00 02/18/25 08:48 750 MG Psyllium Hydrophilic Mucilloid 1 pkg DAILY GT 02/15/25 10:00 02/18/25 09:43 1 PKG Levetiracetam 750 mg BID PO 02/15/25 10:15 02/18/25 08:47 750 MG Trazodone HCl 50 mg HS PO 02/16/25 22:00 02/18/25 22:00 02/16/25 22:19 50 MG Ketorolac Tromethamine 15 mg Q6HPRN PRN IV 02/16/25 10:15 02/18/25 22:00 02/18/25 14:07 15 MG Lorazepam 2 mg Q6HP PRN PO 02/17/25 18:15 02/18/25 10:40 2 MG Primidone 25 mg HS PO 02/18/25 22:00 Gabapentin 300 mg TID PO 02/18/25 22:00 Examination Patient sitting comfortably in the chair, out of bed, well conversational, no acute distress General: Well-built, afebrile, palor, mucosae are moist Cardiovascular: Tachycardic but Regular S1 and S2. No murmurs, gallops or rubs. No JVD elevation. No pedal edema Respiratory: Normal B/L air entry RA bilateral equal air entry Abdomen: Soft, nontender, nondistended, normoactive bowel sounds, no rebound tenderness, no organomegaly, no masses Genitourinary: Navarrete dc MSK/skin: Patient is ambulating Neurological: Pupils are isocoric and reactive. Psych/Mental Status: A/Ox3 laboratory and microbiology Laboratory Tests 02/18/25 03:20 Test 02/18/25 03:20 Range/Units Serum Glucose 103 74-106 mg/dL Microbiology Date/Time Source Procedure Growth Status 02/07/25 02:15 Urine - Navarrete Port Urine Culture - Final Complete 01/22/25 18:44 Blood Blood Culture - Final NO GROWTH AFTER 5 DAYS OF INCUBATION. Complete 01/18/25 10:40 Sputum Gram Stain - Final Complete 01/18/25 10:40 Sputum Respiratory Culture - Final Complete 01/05/25 08:15 Other Abscess Gram Stain - Final Complete 01/05/25 08:15 Other Abscess Anaerobic Culture - Final Complete 01/05/25 08:15 Aerobic Culture - Final Enterococcus faecium - VRE Complete 01/05/25 08:02 Peritoneal Fluid Gram Stain - Final Complete 01/05/25 08:02 Peritoneal Fluid Anaerobic Culture - Final Complete 01/05/25 08:02 Aerobic Culture - Final Enterococcus faecium - VRE Citrobacter freundii Vanc Resistant Enterococcus Complete Labs and/or images reviewed: Labs reviewed by me, Image(s) reviewed by me Problem List/Assessment/Plan Problem List/Assessment/Plan NEURO: Acute metabolic encephalopathy likely due to in-hospital delirium History of epilepsy Wheelchair-bound 2022 status post fall Night terrors Continue valproate twice daily Diphenhydramine q.6 p.r.n. for agitation, Librium 25 mg TID Keppra b.i.d. Olanzapine 10 mg daily Primdone 25mg hs Lorazepam 2mg q6prn trazodone 50mg hs CARDIOVASCULAR: Septic shock likely due to intra-abdominal sepsis Sinus tachycardia Propranolol 20mg tid PULMONARY: Acute hypoxic respiratory failure status post intubation status post tracheostomy 01/05 downsized to 6 Likely acute respiratory distress syndrome-non cardiogenic pulmonary edema- resolving Pleural effusion status post thoracocentesis Nebulized treatments daily GASTROINTESTINAL: Intractable pain secondary to Intra-abdominal sepsis with VRE and peritonitis status post exploratory laparotomy x2 01/05 and 12/27 Status post bowel resection and colostomy Intra-abdominal abscess Splenic fluid collection Pantoprazole 40 mg PO zyvox PO 600 bid, levaquin IV daily 02/12 switched to p.o. 02/14 DC micafungin daily Fentanyl patch 75 mcg, deescalate GENITOURINARY: DC Navarrete catheter METABOLIC: Hypoalbuminemia Moderate to severe protein calorie malnutrition Ensure TID HEMATOLOGY/ONCOLOGY Right upper extremity DVT 01/09 Left upper extremity superficial thrombosis Anemia likely normocytic status post 3 packed RBC transfusion Thrombocytosis Lovenox 70 mg b.i.d. to eliquis 02/13 Iron profile consistent with anemia of chronic disease INFECTIOUS DISEASE: Intra-abdominal sepsis with VRE zyvox PO 600 bid, levaquin IV daily 02/12 DC micafungin daily MUSCULOSKELETAL Chronic open dependence Neuropathic Pain Gabapentin 300mg tid Thiamine and folic acid daily Vitamin-D deficiency Supplemented DIET: Pureed diet DVT prophylaxis, Eliquis GI prophylaxis: Protonix Code status: Full code LINES/DRAINS/ACCESS: IV access: Left femoral central line 01/28 till 02/11, peripheral IV is inserted Drips: off soft diet Navarrete catheter dc 02/11 DISPOSITION: ICU PT eval Patient's status discussed with Family Critical care time spent more than 58 minutes, including downsizing tracheostomy, patient care, chart review, and updating the family. Excluding any procedures Case discussed with Dr. Fernandez Plan discussed with: Patient My Orders My Orders Orders - VALERIE HESTER Procedure Category Date Status Time * [employer] CONS 02/18/25 Transmitted Consult Dietary Evaluation Review Comments: 1. TF: Vital AF@50ml/hr (90g protein, 1440kcal 973 free water) meeting Protein needs 83%, energy needs 80%. 2. TPN per pharmacy meeting 75% of his needs if TF not feasible or NPO>7 days. 3. Diet as tolerated per TRAINING PROJECT MANAGER eval when off Vent Expected Outcomes/Goals: Preventing catabolism VALERIE HESTER RESIDENT Feb 18, 2025 15:48
[2025-02-18] MEDS: GABAPENTIN 300 MG CAP PO SCH (21:09)
[2025-02-18] MEDS: PRIMIDONE 50 MG TAB PO SCH (21:11)
[2025-02-19] VITALS (32 sets, daily range): BP systolic 89–133; BP diastolic 45–85; PULSE 80–115; RESP 15–26; TEMP 98–98.6; O2SAT 91–100
[2025-02-19] MEDS: KETOROLAC TROMETH 30 MG/ML 1ML VIAL ONE (00:16)
[2025-02-19 03:38] LABS: Hematocrit 26.7 % (41.0-53.0); Hemoglobin 9.1 g/dL (13.5-17.5); Mean Corpuscular Hemoglobin 28.4 pg (28.0-32.0); Mean Corpuscular Volume 83.4 fL (80.0-100.0); Nucleated Red Blood Cells % 0.0 %
[2025-02-19 03:47] LABS: Chloride 101 mmol/L (98-107); Potassium 4.6 mmol/L (3.5-5.1)
[2025-02-19 03:48] LABS: Anion Gap 9 (5-15); Carbon Dioxide 25 mmol/L (20-31)
[2025-02-19 03:49] LABS: Calcium 8.8 mg/dL (8.7-10.4)
[2025-02-19 03:52] LABS: Sodium 135 mmol/L (136-145)
[2025-02-19 03:53] LABS: Glucose 95 mg/dL (74-106)
[2025-02-19 03:54] LABS: BUN/Creatinine Ratio 20.5 (10.0-20.0); Blood Urea Nitrogen 15 mg/dL (9-23); Magnesium 1.7 mg/dL (1.6-2.6)
[2025-02-19] MEDS: MAGNESIUM SULFATE 1GM/100ML 100 ML IV ONE (05:13)
[2025-02-19] MEDS: KETOROLAC TROMETH 30 MG/ML 1ML VIAL IV PRN (07:02)
[2025-02-19] MEDS: BACLOFEN 10 MG TAB PO ONE (10:28)
--- NOTE | 2025-02-19 14:32 | DVHPN2 ---
Progress Note Date Seen: Feb 19, 2025 Resident Creating Document: ROBYN CARRANZA RESIDENT Has the PT tested + for MRSA If YES, has PT been informed?: No Medical Necessity Reason Pt with a Central, PICC or Fol: No Reason for navarrete catheter: Strict I&O Subjective Review of Systems Patient seen and examined at bedside today Stable from GI point of view Reports good appetite, denies any nausea or vomiting No abdominal pain No heartburn Colostomy output 200 mL brown in color overnight. Objective vital signs Vital Sign Date Time Temp Pulse Resp B/P (MAP) Pulse Ox O2 Delivery O2 Flow Rate FiO2 02/19/25 14:03 18 95 Room Air* 0 21 02/19/25 14:03 93 02/19/25 10:29 133/77 02/19/25 04:01 98.1 98.1 Total Intake and Output 02/18/25 02/18/25 02/19/25 15:00 23:00 07:00 Intake Total 200 ml 1430 ml 340 ml Output Total 800 ml 800 ml Balance 200 ml 630 ml -460 ml medications Current Medications Medications Dose Ordered Sig/Sherron Route Start Time Stop Time Status Last Admin Dose Admin Sodium Chloride 40 meq/Potassium Chloride 40 meq/ Potassium Phosphate 11 meq/ Calcium Gluconate 2.3 meq/Magnesium Sulfate 8 meq/ Multivitamins 10 ml/Chromium/ Copper/Manganese/ Zinc 1 ml/Amino Acids/Dextrose/ Purified Water 1,450.4462 ml @ 60 mls/hr [id number] IV 12/26/24 22:00 12/27/24 21:59 Cancel Sodium Chloride 10 ml QSHIFT@10,22 IV 12/27/24 22:00 02/19/25 10:29 10 ML Artificial Tears 1 drop Q6HP PRN EACHEYE 12/29/24 23:45 01/06/25 09:00 1 DROP Ketamine HCl 50 mg [id number] PRN IV 01/04/25 15:00 01/05/25 07:00 Cancel Sodium Chloride 120 meq/Potassium Chloride 50 meq/ Potassium Acetate 50 meq/Calcium Gluconate 4.65 meq/Magnesium Sulfate 34 meq/ Multivitamins 10 ml/Chromium/ Copper/Manganese/ Zinc 1 ml/Amino Acids/Dextrose/ Purified Water 1,659.5 ml @ 68.108 mls/hr [id number] IV 01/09/25 22:00 01/10/25 21:59 Cancel Sodium Chloride 100 meq/Potassium Chloride 50 meq/ Calcium Gluconate 4.65 meq/ Magnesium Sulfate 34 meq/ Multivitamins 10 ml/Chromium/ Copper/Manganese/ Zinc 1 ml/Sodium Phosphate 20 meq/ Potassium Acetate 50 meq/Amino Acids/Dextrose/ Purified Water 1,659.5 ml @ 68.537 mls/hr [id number] IV 01/09/25 09:30 01/09/25 21:59 Cancel Folic Acid 1 mg DAILY PO 01/20/25 10:00 02/19/25 10:28 1 MG Acetaminophen 650 mg Q6HP PRN GT 01/22/25 10:15 02/10/25 13:20 650 MG Mupirocin 1 applic BID EACHNOSTRI 01/27/25 22:00 02/01/25 21:59 UNV Ipratropium Council 0.5 mg Q6HR NEB 02/06/25 12:00 02/19/25 12:37 0.5 MG Lorazepam 1 mg ONCE PRN IV 02/06/25 10:45 02/15/25 15:29 1 MG Levalbuterol HCl 1.25 mg Q6HR NEB 02/06/25 18:00 02/19/25 12:37 1.25 MG Acetaminophen/ Hydrocodone Bitart 1 tab Q4HPRN PRN PO 02/10/25 13:45 02/19/25 11:20 1 TAB Ondansetron HCl 4 mg Q4HPRN PRN IV 02/12/25 05:00 02/13/25 21:44 4 MG Sucralfate 1 gm BID@0600,2200 PO 02/12/25 17:15 02/19/25 05:14 1 GM Lactulose 30 ml DAILY PO 02/13/25 10:00 02/19/25 10:28 30 ML Pantoprazole Sodium 40 mg BID@0600,1700 PO 02/13/25 17:00 02/19/25 05:14 40 MG Enteral Nutritional Formula 240 ml TIDWM PO 02/13/25 18:00 Hold Valproate Sodium 250 mg BID PO 02/13/25 22:00 02/19/25 10:28 250 MG Enteral Nutritional Formula 240 ml TIDWM PO 02/13/25 18:00 02/19/25 08:00 240 ML Ergocalciferol 50,000 unit Q7D PO 02/14/25 07:30 02/14/25 08:50 50,000 UNIT Propranolol HCl 20 mg BID PO 02/14/25 22:00 02/19/25 10:29 20 MG Apixaban 5 mg BID PO 02/14/25 22:00 02/19/25 10:28 5 MG Psyllium Hydrophilic Mucilloid 1 pkg DAILY GT 02/15/25 10:00 02/19/25 10:26 1 PKG Levetiracetam 750 mg BID PO 02/15/25 10:15 02/19/25 10:28 750 MG Primidone 25 mg HS PO 02/18/25 22:00 02/18/25 21:11 25 MG Gabapentin 300 mg TID PO 02/18/25 22:00 02/19/25 13:49 300 MG Ketorolac Tromethamine 15 mg Q6HPRN PRN IV 02/19/25 00:15 02/24/25 00:14 02/19/25 13:49 15 MG Baclofen 10 mg HS PO 02/19/25 22:00 Fentanyl 50 mcg Q72H TD 02/19/25 13:45 UNV Lorazepam 1 mg Q6HP PRN PO 02/19/25 13:45 Examination Patient sitting comfortably in the chair, out of bed, well conversational, no acute distress General: Well-built, afebrile, palor, mucosae are moist Cardiovascular: Tachycardic but Regular S1 and S2. No murmurs, gallops or rubs. No JVD elevation. No pedal edema Respiratory: Normal B/L air entry RA bilateral equal air entry Abdomen: Soft, nontender, nondistended, normoactive bowel sounds, no rebound tenderness, no organomegaly, no masses Genitourinary: Navarrete dc MSK/skin: Patient is ambulating Neurological: Pupils are isocoric and reactive. Psych/Mental Status: A/Ox3 laboratory and microbiology Laboratory Tests 02/19/25 03:21 Test 02/19/25 03:21 Range/Units Serum Glucose 95 74-106 mg/dL Microbiology Date/Time Source Procedure Growth Status 02/07/25 02:15 Urine - Navarrete Port Urine Culture - Final Complete 01/22/25 18:44 Blood Blood Culture - Final NO GROWTH AFTER 5 DAYS OF INCUBATION. Complete 01/18/25 10:40 Sputum Gram Stain - Final Complete 01/18/25 10:40 Sputum Respiratory Culture - Final Complete 01/05/25 08:15 Other Abscess Gram Stain - Final Complete 01/05/25 08:15 Other Abscess Anaerobic Culture - Final Complete 01/05/25 08:15 Aerobic Culture - Final Enterococcus faecium - VRE Complete 01/05/25 08:02 Peritoneal Fluid Gram Stain - Final Complete 01/05/25 08:02 Peritoneal Fluid Anaerobic Culture - Final Complete 01/05/25 08:02 Aerobic Culture - Final Enterococcus faecium - VRE Citrobacter freundii Vanc Resistant Enterococcus Complete Labs and/or images reviewed: Labs reviewed by me, Image(s) reviewed by me Problem List/Assessment/Plan Problem List/Assessment/Plan Acute peritonitis S/P laparotomy with bowel resection with colostomy and abscess drainage Intra-abdominal sepsis, VRE/Citrobacter peritonitis Splenic fluid collection; CT abdomen pelvis from 01/25/2025: Trace ascites with component of loculation over the anterior lower abdomen left lateral upper abdomen. 6.1 x 1.5 x 11 cm loculated fluid over the left upper abdominal quadrant lateral to the spleen with a Left mid to lower abdominal approach drainage catheter terminating over the inferior portion of the fluid collection. The loculated fluid are marginally decreased in size from prior imaging. Sigmoid colon injury Acute hypoxic respiratory failure, s/p extubation with trach collar Constipation New onset heartburn/GERD Plan: Increased IV Protonix 40 mg b.i.d. Added Carafate 1 g b.i.d. Monitor colostomy output for volume, consistency and viability Possible capping of tracheostomy next week Continue antibiotics Soft mechanical diet Thank you so much for the opportunity to consult on your patient. GI team will follow the patient. In case of any questions or concerns please feel free to reach out. Plan discussed with Dr. Bailey Plan discussed with: Patient, Other (RN) Dietary Evaluation Review Comments: 1. TF: Vital AF@50ml/hr (90g protein, 1440kcal 973 free water) meeting Protein needs 83%, energy needs 80%. 2. TPN per pharmacy meeting 75% of his needs if TF not feasible or NPO>7 days. 3. Diet as tolerated per MOTION DESIGNER eval when off Vent Expected Outcomes/Goals: Preventing catabolism ROBYN CARRANZA RESIDENT Feb 19, 2025 14:32
[2025-02-19] MEDS: LORazepam 0.5 MG TAB PO PRN (15:41)
--- NOTE | 2025-02-19 18:58 | DVHPNRES ---
Progress Note Date Seen: Feb 19, 2025 Resident Creating Document: VALERIE HESTER RESIDENT Has the PT tested + for MRSA If YES, has PT been informed?: No Medical Necessity Reason Pt with a Central, PICC or Fol: No Subjective Review of Systems This is a 44-year-old male with a epilepsy, chronic pain syndrome on opiates, gout who is hospital stay has been prolonged secondary to acute peritonitis, intra-abdominal sepsis status post exploratory laparotomy 12/27 and repeated on 01/05, intra-abdominal sepsis with Citrobacter and VRE, perisplenic collection, status post colostomy and tracheostomy 01/05 and a right upper arm DVT 01/09 02/11 - Overnight, patient is afebrile, tachycardic into 120s but Sinus, tachypneic intermittently, normotensive, on TPs at 10 L with 35% FiO2. Urine output 1400, stool output 2-5 cc from colostomy. Patient is sitting in the chair comfortably, CBC stable, CMP unremarkable, started clear liquid diet. DC Precedex today. dc navarrete 02/13 - patient seen, axo3, onto chair, on cl liq diet, transitioning to eliquis, , restraining bands for PT, meds to po, dc micafungin, zyvox PO, ensure added 02/14 - patient seen and examined, reports neuropathic pain, started gabapentin 300 mg TID, Levaquin since to p.o.. Started pureed diet. Trach downsized to 4.0 shiley, brief episode of desaturation to 88, improved on 5 L 02/15 - patient seen and examined, onto chair, on room air, PT on board. 02/18 - patient on a chair, on room air, reports night terrors 02/19-no overnight events, on room air, consulted for SNF placement, started patient's home medication sertraline and trazodone. Gabapentin increased to 600 mg TID. Baclofen added HS. Continuing physical therapy. Objective vital signs Vital Sign Date Time Temp Pulse Resp B/P (MAP) Pulse Ox O2 Delivery O2 Flow Rate FiO2 02/19/25 18:20 88 20 100 02/19/25 18:12 Room Air* 0 21 02/19/25 17:00 125/69 (87) 02/19/25 16:00 98.2 98.2 Total Intake and Output 02/18/25 02/18/25 02/19/25 14:59 22:59 06:59 Intake Total 200 ml 1430 ml 340 ml Output Total 800 ml 800 ml Balance 200 ml 630 ml -460 ml medications Current Medications Medications Dose Ordered Sig/Sherron Route Start Time Stop Time Status Last Admin Dose Admin Sodium Chloride 40 meq/Potassium Chloride 40 meq/ Potassium Phosphate 11 meq/ Calcium Gluconate 2.3 meq/Magnesium Sulfate 8 meq/ Multivitamins 10 ml/Chromium/ Copper/Manganese/ Zinc 1 ml/Amino Acids/Dextrose/ Purified Water 1,450.4462 ml @ 60 mls/hr [id number] IV 12/26/24 22:00 12/27/24 21:59 Cancel Sodium Chloride 10 ml QSHIFT@10,22 IV 12/27/24 22:00 02/19/25 10:29 10 ML Artificial Tears 1 drop Q6HP PRN EACHEYE 12/29/24 23:45 01/06/25 09:00 1 DROP Ketamine HCl 50 mg [id number] PRN IV 01/04/25 15:00 01/05/25 07:00 Cancel Sodium Chloride 120 meq/Potassium Chloride 50 meq/ Potassium Acetate 50 meq/Calcium Gluconate 4.65 meq/Magnesium Sulfate 34 meq/ Multivitamins 10 ml/Chromium/ Copper/Manganese/ Zinc 1 ml/Amino Acids/Dextrose/ Purified Water 1,659.5 ml @ 68.108 mls/hr [id number] IV 01/09/25 22:00 01/10/25 21:59 Cancel Sodium Chloride 100 meq/Potassium Chloride 50 meq/ Calcium Gluconate 4.65 meq/ Magnesium Sulfate 34 meq/ Multivitamins 10 ml/Chromium/ Copper/Manganese/ Zinc 1 ml/Sodium Phosphate 20 meq/ Potassium Acetate 50 meq/Amino Acids/Dextrose/ Purified Water 1,659.5 ml @ 68.537 mls/hr [id number] IV 01/09/25 09:30 01/09/25 21:59 Cancel Folic Acid 1 mg DAILY PO 01/20/25 10:00 02/19/25 10:28 1 MG Acetaminophen 650 mg Q6HP PRN GT 01/22/25 10:15 02/10/25 13:20 650 MG Mupirocin 1 applic BID EACHNOSTRI 01/27/25 22:00 02/01/25 21:59 UNV Ipratropium Leopold 0.5 mg Q6HR NEB 02/06/25 12:00 02/19/25 18:12 0.5 MG Lorazepam 1 mg ONCE PRN IV 02/06/25 10:45 02/15/25 15:29 1 MG Levalbuterol HCl 1.25 mg Q6HR NEB 02/06/25 18:00 02/19/25 18:12 1.25 MG Acetaminophen/ Hydrocodone Bitart 1 tab Q4HPRN PRN PO 02/10/25 13:45 02/19/25 17:49 1 TAB Ondansetron HCl 4 mg Q4HPRN PRN IV 02/12/25 05:00 02/13/25 21:44 4 MG Sucralfate 1 gm BID@0600,2200 PO 02/12/25 17:15 02/19/25 05:14 1 GM Lactulose 30 ml DAILY PO 02/13/25 10:00 02/19/25 10:28 30 ML Pantoprazole Sodium 40 mg BID@0600,1700 PO 02/13/25 17:00 02/19/25 17:55 40 MG Enteral Nutritional Formula 240 ml TIDWM PO 02/13/25 18:00 Hold Valproate Sodium 250 mg BID PO 02/13/25 22:00 02/19/25 10:28 250 MG Enteral Nutritional Formula 240 ml TIDWM PO 02/13/25 18:00 02/19/25 08:00 240 ML Ergocalciferol 50,000 unit Q7D PO 02/14/25 07:30 02/14/25 08:50 50,000 UNIT Propranolol HCl 20 mg BID PO 02/14/25 22:00 02/19/25 10:29 20 MG Apixaban 5 mg BID PO 02/14/25 22:00 02/19/25 10:28 5 MG Psyllium Hydrophilic Mucilloid 1 pkg DAILY GT 02/15/25 10:00 02/19/25 10:26 1 PKG Levetiracetam 750 mg BID PO 02/15/25 10:15 02/19/25 10:28 750 MG Primidone 25 mg HS PO 02/18/25 22:00 02/18/25 21:11 25 MG Ketorolac Tromethamine 15 mg Q6HPRN PRN IV 02/19/25 00:15 02/24/25 00:14 02/19/25 13:49 15 MG Baclofen 10 mg HS PO 02/19/25 22:00 Fentanyl 50 mcg Q72H TD 02/19/25 13:45 Lorazepam 1 mg Q6HP PRN PO 02/19/25 13:45 02/19/25 15:41 1 MG Gabapentin 600 mg TID PO 02/19/25 22:00 Sertraline HCl 50 mg DAILY PO 02/20/25 10:00 Trazodone HCl 50 mg HS PO 02/19/25 22:00 Examination Patient sitting comfortably in the chair, out of bed, well conversational, no acute distress General: Well-built, afebrile, palor, mucosae are moist Cardiovascular: Tachycardic but Regular S1 and S2. No murmurs, gallops or rubs. No JVD elevation. No pedal edema Respiratory: Normal B/L air entry RA bilateral equal air entry Abdomen: Soft, nontender, nondistended, normoactive bowel sounds, no rebound tenderness, no organomegaly, no masses Genitourinary: Navarrete dc MSK/skin: Patient is ambulating Neurological: Pupils are isocoric and reactive. Psych/Mental Status: A/Ox3 laboratory and microbiology Laboratory Tests 02/19/25 03:21 Test 02/19/25 03:21 Range/Units Serum Glucose 95 74-106 mg/dL Microbiology Date/Time Source Procedure Growth Status 02/07/25 02:15 Urine - Navarrete Port Urine Culture - Final Complete 01/22/25 18:44 Blood Blood Culture - Final NO GROWTH AFTER 5 DAYS OF INCUBATION. Complete 01/18/25 10:40 Sputum Gram Stain - Final Complete 01/18/25 10:40 Sputum Respiratory Culture - Final Complete 01/05/25 08:15 Other Abscess Gram Stain - Final Complete 01/05/25 08:15 Other Abscess Anaerobic Culture - Final Complete 01/05/25 08:15 Aerobic Culture - Final Enterococcus faecium - VRE Complete 01/05/25 08:02 Peritoneal Fluid Gram Stain - Final Complete 01/05/25 08:02 Peritoneal Fluid Anaerobic Culture - Final Complete 01/05/25 08:02 Aerobic Culture - Final Enterococcus faecium - VRE Citrobacter freundii Vanc Resistant Enterococcus Complete Labs and/or images reviewed: Labs reviewed by me, Image(s) reviewed by me Problem List/Assessment/Plan Problem List/Assessment/Plan NEURO: Acute metabolic encephalopathy likely due to in-hospital delirium History of epilepsy Wheelchair-bound 2022 status post fall Night terrors Continue valproate twice daily Diphenhydramine q.6 p.r.n. for agitation, Librium 25 mg TID Keppra b.i.d. Olanzapine 10 mg daily Primdone 25mg hs Lorazepam 2mg q6prn trazodone 50mg hs Seroquel 50 mg daily CARDIOVASCULAR: Septic shock likely due to intra-abdominal sepsis Sinus tachycardia Propranolol 20mg tid PULMONARY: Acute hypoxic respiratory failure status post intubation status post tracheostomy 01/05 downsized to 6 Likely acute respiratory distress syndrome-non cardiogenic pulmonary edema- resolving Pleural effusion status post thoracocentesis Nebulized treatments daily GASTROINTESTINAL: Intractable pain secondary to Intra-abdominal sepsis with VRE and peritonitis status post exploratory laparotomy x2 01/05 and 12/27 Status post bowel resection and colostomy Intra-abdominal abscess Splenic fluid collection Pantoprazole 40 mg PO zyvox PO 600 bid, levaquin IV daily 02/12 switched to p.o. 02/14 DC micafungin daily Fentanyl patch 75 mcg, decreased to 50 mcg patch. GENITOURINARY: DC Navarrete catheter METABOLIC: Hypoalbuminemia Moderate to severe protein calorie malnutrition Ensure TID HEMATOLOGY/ONCOLOGY Right upper extremity DVT 01/09 Left upper extremity superficial thrombosis Anemia likely normocytic status post 3 packed RBC transfusion Thrombocytosis Lovenox 70 mg b.i.d. to eliquis 02/13 Iron profile consistent with anemia of chronic disease INFECTIOUS DISEASE: Intra-abdominal sepsis with VRE Completed zyvox PO 600 bid, levaquin IV daily 02/12 DC micafungin daily MUSCULOSKELETAL Chronic open dependence Neuropathic Pain Gabapentin 300mg tid Thiamine and folic acid daily Vitamin-D deficiency Supplemented DIET: Pureed diet DVT prophylaxis, Eliquis GI prophylaxis: Protonix Code status: Full code LINES/DRAINS/ACCESS: IV access: Left femoral central line 01/28 till 02/11, peripheral IV is inserted Drips: off soft diet Navarrete catheter dc 02/11 DISPOSITION: ICU PT eval Patient's status discussed with Family Critical care time spent more than 62 minutes, including patient care, chart review, and updating the family. Excluding any procedures Case discussed with Dr. Pérez Plan discussed with: Patient My Orders My Orders Orders - VALERIE HESTER Procedure Category Date Status Time Valproic Acid LAB 02/20/25 Verified (Depakene) 05:00 Baclofen Tablet PHA 02/19/25 In Process (Liorisal Tablet) 22:00 * Load Builder CONS 02/19/25 Transmitted Consult 14:29 Gabapentin Capsule PHA 02/19/25 In Process (Neurontin Capsule) 22:00 Sertraline Hcl PHA 02/20/25 In Process (Zoloft) 10:00 Trazodone Hcl PHA 02/19/25 In Process (Desyrel) 22:00 Dietary Evaluation Review Comments: 1. TF: Vital AF@50ml/hr (90g protein, 1440kcal 973 free water) meeting Protein needs 83%, energy needs 80%. 2. TPN per pharmacy meeting 75% of his needs if TF not feasible or NPO>7 days. 3. Diet as tolerated per MACHINE BENDER eval when off Vent Expected Outcomes/Goals: Preventing catabolism Date of Service: Feb 19, 2025 Billing Provider: MARIELA PÉREZ MD Common Visit Codes: [id number] CARE 30-74 MIN VALERIE HESTER Feb 19, 2025 18:58 MARIELA PÉREZ MD Feb 20, 2025 14:38
[2025-02-19] MEDS: fentaNYL 50MCG/HR 50 MCG/HR PAT TD SCH (20:05)
[2025-02-19] MEDS: GABAPENTIN 300 MG CAP PO SCH (21:19)
[2025-02-19] MEDS: BACLOFEN 10 MG TAB PO SCH (21:19)
[2025-02-20] VITALS (32 sets, daily range): BP systolic 103–154; BP diastolic 52–98; PULSE 81–119; RESP 13–22; TEMP 98.1–98.6; O2SAT 93–100
[2025-02-20 03:45] LABS: Hematocrit 27.8 % (41.0-53.0); Hemoglobin 9.5 g/dL (13.5-17.5); Mean Corpuscular Hemoglobin 28.5 pg (28.0-32.0); Mean Corpuscular Volume 83.8 fL (80.0-100.0); Nucleated Red Blood Cells % 0.1 %
[2025-02-20 03:58] LABS: Calcium 9.2 mg/dL (8.7-10.4); Chloride 103 mmol/L (98-107); Potassium 4.8 mmol/L (3.5-5.1); Sodium 137 mmol/L (136-145)
[2025-02-20 03:59] LABS: Anion Gap 10 (5-15); Carbon Dioxide 24 mmol/L (20-31)
[2025-02-20 04:04] LABS: BUN/Creatinine Ratio 19.7 (10.0-20.0); Blood Urea Nitrogen 15 mg/dL (9-23); Glucose 93 mg/dL (74-106)
[2025-02-20] MEDS: SERTRALINE HCL 50 MG TAB PO SCH (09:01)
--- NOTE | 2025-02-20 13:54 | DVHPN2 ---
Progress Note Date Seen: Feb 20, 2025 Resident Creating Document: ROBYN CARRANZA RESIDENT Has the PT tested + for MRSA If YES, has PT been informed?: No Medical Necessity Reason Pt with a Central, PICC or Fol: No Subjective Review of Systems Patient seen and examined at bedside today Stable from GI point of view Reports good appetite, denies any nausea or vomiting No abdominal pain No heartburn Colostomy output 200 mL brown in color overnight. Objective vital signs Vital Sign Date Time Temp Pulse Resp B/P (MAP) Pulse Ox O2 Delivery O2 Flow Rate FiO2 02/20/25 12:41 86 16 100 02/20/25 12:35 Room Air* 0 21 02/20/25 09:02 154/80 02/20/25 09:00 98.2 98.2 Total Intake and Output 02/19/25 02/19/25 02/20/25 15:00 23:00 07:00 Intake Total 200 ml 600 ml 480 ml Output Total 1200 ml 1300 ml Balance 200 ml -600 ml -820 ml medications Current Medications Medications Dose Ordered Sig/Sherron Route Start Time Stop Time Status Last Admin Dose Admin Sodium Chloride 40 meq/Potassium Chloride 40 meq/ Potassium Phosphate 11 meq/ Calcium Gluconate 2.3 meq/Magnesium Sulfate 8 meq/ Multivitamins 10 ml/Chromium/ Copper/Manganese/ Zinc 1 ml/Amino Acids/Dextrose/ Purified Water 1,450.4462 ml @ 60 mls/hr [id number] IV 12/26/24 22:00 12/27/24 21:59 Cancel Sodium Chloride 10 ml QSHIFT@10,22 IV 12/27/24 22:00 02/20/25 09:02 10 ML Artificial Tears 1 drop Q6HP PRN EACHEYE 12/29/24 23:45 01/06/25 09:00 1 DROP Ketamine HCl 50 mg [id number] PRN IV 01/04/25 15:00 01/05/25 07:00 Cancel Sodium Chloride 120 meq/Potassium Chloride 50 meq/ Potassium Acetate 50 meq/Calcium Gluconate 4.65 meq/Magnesium Sulfate 34 meq/ Multivitamins 10 ml/Chromium/ Copper/Manganese/ Zinc 1 ml/Amino Acids/Dextrose/ Purified Water 1,659.5 ml @ 68.108 mls/hr [id number] IV 01/09/25 22:00 01/10/25 21:59 Cancel Sodium Chloride 100 meq/Potassium Chloride 50 meq/ Calcium Gluconate 4.65 meq/ Magnesium Sulfate 34 meq/ Multivitamins 10 ml/Chromium/ Copper/Manganese/ Zinc 1 ml/Sodium Phosphate 20 meq/ Potassium Acetate 50 meq/Amino Acids/Dextrose/ Purified Water 1,659.5 ml @ 68.537 mls/hr [id number] IV 01/09/25 09:30 01/09/25 21:59 Cancel Folic Acid 1 mg DAILY PO 01/20/25 10:00 02/20/25 09:04 1 MG Acetaminophen 650 mg Q6HP PRN GT 01/22/25 10:15 02/10/25 13:20 650 MG Mupirocin 1 applic BID EACHNOSTRI 01/27/25 22:00 02/01/25 21:59 UNV Ipratropium [place] 0.5 mg Q6HR NEB 02/06/25 12:00 02/20/25 12:35 0.5 MG Lorazepam 1 mg ONCE PRN IV 02/06/25 10:45 02/15/25 15:29 1 MG Levalbuterol HCl 1.25 mg Q6HR NEB 02/06/25 18:00 02/20/25 12:35 1.25 MG Acetaminophen/ Hydrocodone Bitart 1 tab Q4HPRN PRN PO 02/10/25 13:45 02/20/25 11:34 1 TAB Ondansetron HCl 4 mg Q4HPRN PRN IV 02/12/25 05:00 02/13/25 21:44 4 MG Sucralfate 1 gm BID@0600,2200 PO 02/12/25 17:15 02/20/25 05:44 1 GM Pantoprazole Sodium 40 mg BID@0600,1700 PO 02/13/25 17:00 02/20/25 05:45 40 MG Enteral Nutritional Formula 240 ml TIDWM PO 02/13/25 18:00 Hold Valproate Sodium 250 mg BID PO 02/13/25 22:00 02/20/25 09:02 250 MG Enteral Nutritional Formula 240 ml TIDWM PO 02/13/25 18:00 02/20/25 08:00 240 ML Ergocalciferol 50,000 unit Q7D PO 02/14/25 07:30 02/14/25 08:50 50,000 UNIT Propranolol HCl 20 mg BID PO 02/14/25 22:00 02/20/25 09:02 20 MG Apixaban 5 mg BID PO 02/14/25 22:00 02/20/25 09:01 5 MG Psyllium Hydrophilic Mucilloid 1 pkg DAILY GT 02/15/25 10:00 02/20/25 09:02 1 PKG Levetiracetam 750 mg BID PO 02/15/25 10:15 02/20/25 09:01 750 MG Primidone 25 mg HS PO 02/18/25 22:00 02/19/25 21:19 25 MG Ketorolac Tromethamine 15 mg Q6HPRN PRN IV 02/19/25 00:15 02/24/25 00:14 02/20/25 09:00 15 MG Baclofen 10 mg HS PO 02/19/25 22:00 02/19/25 21:19 10 MG Fentanyl 50 mcg Q72H TD 02/19/25 13:45 02/19/25 20:05 50 MCG Lorazepam 1 mg Q6HP PRN PO 02/19/25 13:45 02/20/25 07:31 1 MG Gabapentin 600 mg TID PO 02/19/25 22:00 02/20/25 05:45 600 MG Sertraline HCl 50 mg DAILY PO 02/20/25 10:00 02/20/25 09:01 50 MG Trazodone HCl 50 mg HS PO 02/19/25 22:00 Saccharomyces Boulardii 250 mg DAILY PO 02/20/25 10:00 Examination Patient sitting comfortably in the chair, out of bed, well conversational, no acute distress General: Well-built, afebrile, palor, mucosae are moist Cardiovascular: Tachycardic but Regular S1 and S2. No murmurs, gallops or rubs. No JVD elevation. No pedal edema Respiratory: Normal B/L air entry RA bilateral equal air entry Abdomen: Soft, nontender, nondistended, normoactive bowel sounds, no rebound tenderness, no organomegaly, no masses Genitourinary: [place] dc MSK/skin: Patient is ambulating Neurological: Pupils are isocoric and reactive. Psych/Mental Status: A/Ox3 laboratory and microbiology Laboratory Tests 02/20/25 02:57 Test 02/20/25 02:57 Range/Units Serum Glucose 93 74-106 mg/dL Microbiology Date/Time Source Procedure Growth Status 02/07/25 02:15 Urine - [place] Urine Culture - Final Complete 01/22/25 18:44 Blood Blood Culture - Final NO GROWTH AFTER 5 DAYS OF INCUBATION. Complete 01/18/25 10:40 Sputum Gram Stain - Final Complete 01/18/25 10:40 Sputum Respiratory Culture - Final Complete 01/05/25 08:15 Other Abscess Gram Stain - Final Complete 01/05/25 08:15 Other Abscess Anaerobic Culture - Final Complete 01/05/25 08:15 Aerobic Culture - Final Enterococcus faecium - VRE Complete 01/05/25 08:02 Peritoneal Fluid Gram Stain - Final Complete 01/05/25 08:02 Peritoneal Fluid Anaerobic Culture - Final Complete 01/05/25 08:02 Aerobic Culture - Final Enterococcus faecium - VRE Citrobacter freundii Vanc Resistant Enterococcus Complete Labs and/or images reviewed: Labs reviewed by me, Image(s) reviewed by me Problem List/Assessment/Plan Problem List/Assessment/Plan Acute peritonitis S/P laparotomy with bowel resection with colostomy and abscess drainage Intra-abdominal sepsis, VRE/Citrobacter peritonitis Splenic fluid collection; CT abdomen pelvis from 01/25/2025: Trace ascites with component of loculation over the anterior lower abdomen left lateral upper abdomen. 6.1 x 1.5 x 11 cm loculated fluid over the left upper abdominal quadrant lateral to the spleen with a Left mid to lower abdominal approach drainage catheter terminating over the inferior portion of the fluid collection. The loculated fluid are marginally decreased in size from prior imaging. Sigmoid colon injury Acute hypoxic respiratory failure, s/p extubation with trach collar Constipation New onset heartburn/GERD Plan: Increased IV Protonix 40 mg b.i.d. Added Carafate 1 g b.i.d. Monitor colostomy output for volume, consistency and viability Possible capping of tracheostomy next week Continue antibiotics Soft mechanical diet Thank you so much for the opportunity to consult on your patient. GI team will follow the patient. In case of any questions or concerns please feel free to reach out. Plan discussed with Dr. Bailey Plan discussed with: Patient, Other (RN) Dietary Evaluation Review Comments: 1. TF: Vital AF@50ml/hr (90g protein, 1440kcal 973 free water) meeting Protein needs 83%, energy needs 80%. 2. TPN per pharmacy meeting 75% of his needs if TF not feasible or NPO>7 days. 3. Diet as tolerated per [employer] bryon when off Vent Expected Outcomes/Goals: Preventing catabolism ROBYN CARRANZA RESIDENT Feb 20, 2025 13:53
[2025-02-20] MEDS: FLORASTOR (S. BOULARDII) 250 MG CAP PO SCH (14:37)
[2025-02-20] MEDS: OXYCODONE W/ ACETAMINOPHEN 5/325MG TABLET PO PRN (16:02)
--- NOTE | 2025-02-20 18:51 | DVHPNRES ---
Progress Note Date Seen: Feb 20, 2025 Resident Creating Document: VALERIE HESTER RESIDENT Has the PT tested + for MRSA If YES, has PT been informed?: No Medical Necessity Reason Pt with a Central, PICC or Fol: No Subjective Review of Systems This is a 44-year-old male with a epilepsy, chronic pain syndrome on opiates, gout who is hospital stay has been prolonged secondary to acute peritonitis, intra-abdominal sepsis status post exploratory laparotomy 12/27 and repeated on 01/05, intra-abdominal sepsis with Citrobacter and VRE, perisplenic collection, status post colostomy and tracheostomy 01/05 and a right upper arm DVT 01/09 02/11 - Overnight, patient is afebrile, tachycardic into 120s but Sinus, tachypneic intermittently, normotensive, on TPs at 10 L with 35% FiO2. Urine output 1400, stool output 2-5 cc from colostomy. Patient is sitting in the chair comfortably, CBC stable, CMP unremarkable, started clear liquid diet. DC Precedex today. dc navarrete 02/13 - patient seen, axo3, onto chair, on cl liq diet, transitioning to eliquis, , restraining bands for PT, meds to po, dc micafungin, zyvox PO, ensure added 02/14 - patient seen and examined, reports neuropathic pain, started gabapentin 300 mg TID, Levaquin since to p.o.. Started pureed diet. Trach downsized to 4.0 shiley, brief episode of desaturation to 88, improved on 5 L 02/15 - patient seen and examined, onto chair, on room air, PT on board. 02/18 - patient on a chair, on room air, reports night terrors 02/19-no overnight events, on room air, consulted for SNF placement, started patient's home medication sertraline and trazodone. Gabapentin increased to 600 mg TID. Baclofen added HS. Continuing physical therapy. 02/20-decannulation of trach completed, patient tolerated well. Fentanyl patch decreased to 25, Objective vital signs Vital Sign Date Time Temp Pulse Resp B/P (MAP) Pulse Ox O2 Delivery O2 Flow Rate FiO2 02/20/25 18:10 98 02/20/25 18:10 20 95 Room Air* 0 21 02/20/25 18:00 02/20/25 09:00 98.2 98.2 Total Intake and Output 02/19/25 02/19/25 02/20/25 15:00 23:00 07:00 Intake Total 200 ml 600 ml 480 ml Output Total 1200 ml 1300 ml Balance 200 ml -600 ml -820 ml medications Current Medications Medications Dose Ordered Sig/Sherron Route Start Time Stop Time Status Last Admin Dose Admin Sodium Chloride 40 meq/Potassium Chloride 40 meq/ Potassium Phosphate 11 meq/ Calcium Gluconate 2.3 meq/Magnesium Sulfate 8 meq/ Multivitamins 10 ml/Chromium/ Copper/Manganese/ Zinc 1 ml/Amino Acids/Dextrose/ Purified Water 1,450.4462 ml @ 60 mls/hr [id number] IV 12/26/24 22:00 12/27/24 21:59 Cancel Sodium Chloride 10 ml QSHIFT@, IV 12/27/24 22:00 02/20/25 09:02 10 ML Artificial Tears 1 drop Q6HP PRN EACHEYE 12/29/24 23:45 01/06/25 09:00 1 DROP Ketamine HCl 50 mg [id number] PRN IV 01/04/25 15:00 01/05/25 07:00 Cancel Sodium Chloride 120 meq/Potassium Chloride 50 meq/ Potassium Acetate 50 meq/Calcium Gluconate 4.65 meq/Magnesium Sulfate 34 meq/ Multivitamins 10 ml/Chromium/ Copper/Manganese/ Zinc 1 ml/Amino Acids/Dextrose/ Purified Water 1,659.5 ml @ 68.108 mls/hr [id number] IV 01/09/25 22:00 01/10/25 21:59 Cancel Sodium Chloride 100 meq/Potassium Chloride 50 meq/ Calcium Gluconate 4.65 meq/ Magnesium Sulfate 34 meq/ Multivitamins 10 ml/Chromium/ Copper/Manganese/ Zinc 1 ml/Sodium Phosphate 20 meq/ Potassium Acetate 50 meq/Amino Acids/Dextrose/ Purified Water 1,659.5 ml @ 68.537 mls/hr [id number] IV 01/09/25 09:30 01/09/25 21:59 Cancel Folic Acid 1 mg DAILY PO 01/20/25 10:00 02/20/25 09:04 1 MG Acetaminophen 650 mg Q6HP PRN GT 01/22/25 10:15 02/10/25 13:20 650 MG Mupirocin 1 applic BID EACHNOSTRI 01/27/25 22:00 02/01/25 21:59 UNV Ipratropium [place] 0.5 mg Q6HR NEB 02/06/25 12:00 02/20/25 18:30 0.5 MG Lorazepam 1 mg ONCE PRN IV 02/06/25 10:45 02/15/25 15:29 1 MG Levalbuterol HCl 1.25 mg Q6HR NEB 02/06/25 18:00 02/20/25 18:29 1.25 MG Acetaminophen/ Hydrocodone Bitart 1 tab Q4HPRN PRN PO 02/10/25 13:45 02/20/25 17:52 1 TAB Ondansetron HCl 4 mg Q4HPRN PRN IV 02/12/25 05:00 02/13/25 21:44 4 MG Sucralfate 1 gm BID@0600,2200 PO 02/12/25 17:15 02/20/25 05:44 1 GM Pantoprazole Sodium 40 mg BID@0600,1700 PO 02/13/25 17:00 02/20/25 17:51 40 MG Enteral Nutritional Formula 240 ml TIDWM PO 02/13/25 18:00 Hold Valproate Sodium 250 mg BID PO 02/13/25 22:00 02/20/25 09:02 250 MG Enteral Nutritional Formula 240 ml TIDWM PO 02/13/25 18:00 02/20/25 12:00 240 ML Ergocalciferol 50,000 unit Q7D PO 02/14/25 07:30 02/14/25 08:50 50,000 UNIT Propranolol HCl 20 mg BID PO 02/14/25 22:00 02/20/25 09:02 20 MG Apixaban 5 mg BID PO 02/14/25 22:00 02/20/25 09:01 5 MG Psyllium Hydrophilic Mucilloid 1 pkg DAILY GT 02/15/25 10:00 02/20/25 09:02 1 PKG Levetiracetam 750 mg BID PO 02/15/25 10:15 02/20/25 09:01 750 MG Primidone 25 mg HS PO 02/18/25 22:00 02/19/25 21:19 25 MG Ketorolac Tromethamine 15 mg Q6HPRN PRN IV 02/19/25 00:15 02/24/25 00:14 Hold 02/20/25 09:00 15 MG Baclofen 10 mg HS PO 02/19/25 22:00 02/19/25 21:19 10 MG Lorazepam 1 mg Q6HP PRN PO 02/19/25 13:45 02/20/25 15:41 1 MG Gabapentin 600 mg TID PO 02/19/25 22:00 02/20/25 14:37 600 MG Sertraline HCl 50 mg DAILY PO 02/20/25 10:00 02/20/25 09:01 50 MG Trazodone HCl 50 mg HS PO 02/19/25 22:00 Saccharomyces Boulardii 250 mg DAILY PO 02/20/25 10:00 02/20/25 14:37 250 MG Oxycodone/ Acetaminophen 1 tab Q4HP PRN PO 02/20/25 14:45 02/20/25 16:02 1 TAB Examination Patient sitting comfortably in the chair, out of bed, well conversational, no acute distress General: Well-built, afebrile, palor, mucosae are moist Cardiovascular: Tachycardic but Regular S1 and S2. No murmurs, gallops or rubs. No JVD elevation. No pedal edema Respiratory: Normal B/L air entry RA bilateral equal air entry Abdomen: Soft, nontender, nondistended, normoactive bowel sounds, no rebound tenderness, no organomegaly, no masses Genitourinary: Navarrete dc MSK/skin: Patient is ambulating Neurological: Pupils are isocoric and reactive. Psych/Mental Status: A/Ox3 laboratory and microbiology Laboratory Tests 02/20/25 02:57 Test 02/20/25 02:57 Range/Units Serum Glucose 93 74-106 mg/dL Microbiology Date/Time Source Procedure Growth Status 02/07/25 02:15 Urine - [place] Port Urine Culture - Final Complete 01/22/25 18:44 Blood Blood Culture - Final NO GROWTH AFTER 5 DAYS OF INCUBATION. Complete 01/18/25 10:40 Sputum Gram Stain - Final Complete 01/18/25 10:40 Sputum Respiratory Culture - Final Complete 01/05/25 08:15 Other Abscess Gram Stain - Final Complete 01/05/25 08:15 Other Abscess Anaerobic Culture - Final Complete 01/05/25 08:15 Aerobic Culture - Final Enterococcus faecium - VRE Complete 01/05/25 08:02 Peritoneal Fluid Gram Stain - Final Complete 01/05/25 08:02 Peritoneal Fluid Anaerobic Culture - Final Complete 01/05/25 08:02 Aerobic Culture - Final Enterococcus faecium - VRE Citrobacter freundii Vanc Resistant Enterococcus Complete Labs and/or images reviewed: Labs reviewed by me, Image(s) reviewed by me Problem List/Assessment/Plan Problem List/Assessment/Plan NEURO: Acute metabolic encephalopathy likely due to in-hospital delirium History of epilepsy Wheelchair-bound 2022 status post fall Night terrors Continue valproate twice daily Diphenhydramine q.6 p.r.n. for agitation, Librium 25 mg TID Keppra b.i.d. Olanzapine 10 mg daily Primdone 25mg hs Lorazepam 2mg q6prn trazodone 50mg hs Seroquel 50 mg daily CARDIOVASCULAR: Septic shock likely due to intra-abdominal sepsis Sinus tachycardia Propranolol 20mg tid PULMONARY: Acute hypoxic respiratory failure status post intubation status post tracheostomy 01/05 decannulation 02/20 Likely acute respiratory distress syndrome-non cardiogenic pulmonary edema- resolving Pleural effusion status post thoracocentesis Nebulized treatments daily GASTROINTESTINAL: Intractable pain secondary to Intra-abdominal sepsis with VRE and peritonitis status post exploratory laparotomy x2 01/05 and 12/27 Status post bowel resection and colostomy Intra-abdominal abscess Splenic fluid collection Pantoprazole 40 mg PO OFF zyvox PO 600 bid, levaquin IV daily 02/12 switched to p.o. 02/14 DC micafungin daily Fentanyl patch 75 mcg, decreased to 25 mcg patch. GENITOURINARY: DC Navarrete catheter METABOLIC: Hypoalbuminemia Moderate to severe protein calorie malnutrition Ensure TID HEMATOLOGY/ONCOLOGY Right upper extremity DVT 01/09 Left upper extremity superficial thrombosis Anemia likely normocytic status post 3 packed RBC transfusion Thrombocytosis Lovenox 70 mg b.i.d. to eliquis 02/13 Iron profile consistent with anemia of chronic disease INFECTIOUS DISEASE: Intra-abdominal sepsis with VRE Completed zyvox PO 600 bid, levaquin IV daily 02/12 DC micafungin daily MUSCULOSKELETAL Chronic open dependence Neuropathic Pain Gabapentin 300mg tid Thiamine and folic acid daily Vitamin-D deficiency Supplemented DIET: Pureed diet DVT prophylaxis, Eliquis GI prophylaxis: Protonix Code status: Full code LINES/DRAINS/ACCESS: IV access: Left femoral central line 01/28 till 02/11, peripheral IV is inserted Drips: off Regular Navarrete catheter dc 02/11 DISPOSITION: ICU PT daily Patient's status discussed with Family Critical care time spent more than 62 minutes, including patient care, chart review, and updating the family. Excluding any procedures Case discussed with Dr. Pérez Plan discussed with: Patient My Orders My Orders Orders - VALERIE HESTER Procedure Category Date Status Time Florastor (S. PHA 02/20/25 In Process Boulardii) (Florastor) 10:00 Dietary Evaluation Review Comments: 1. TF: Vital AF@50ml/hr (90g protein, 1440kcal 973 free water) meeting Protein needs 83%, energy needs 80%. 2. TPN per pharmacy meeting 75% of his needs if TF not feasible or NPO>7 days. 3. Diet as tolerated per CARDIOVASCULAR TECH eval when off Vent Expected Outcomes/Goals: Preventing catabolism Date of Service: Feb 20, 2025 Billing Provider: MARIELA PÉREZ MD Common Visit Codes: [id number] CARE 30-74 MIN VALERIE HESTER Feb 20, 2025 18:51 MARIELA PÉREZ MD Feb 21, 2025 11:12
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
[2025-02-21] VITALS (23 sets, daily range): BP systolic 118–145; BP diastolic 62–108; PULSE 76–113; RESP 15–23; TEMP 98–98.4; O2SAT 91–100
[2025-02-21 03:27] LABS: Hematocrit 28.3 % (41.0-53.0); Hemoglobin 9.5 g/dL (13.5-17.5); Mean Corpuscular Hemoglobin 28.1 pg (28.0-32.0); Mean Corpuscular Volume 83.9 fL (80.0-100.0); Nucleated Red Blood Cells % 0.0 %
[2025-02-21 03:36] LABS: Anion Gap 9 (5-15); Carbon Dioxide 25 mmol/L (20-31); Chloride 103 mmol/L (98-107); Potassium 4.5 mmol/L (3.5-5.1); Sodium 137 mmol/L (136-145)
[2025-02-21 03:37] LABS: Calcium 8.8 mg/dL (8.7-10.4)
[2025-02-21 03:42] LABS: BUN/Creatinine Ratio 26.2 (10.0-20.0); Blood Urea Nitrogen 16 mg/dL (9-23)
[2025-02-21 03:48] LABS: Glucose 107 mg/dL (74-106)
--- NOTE | 2025-02-21 09:57 | DVHPN2 ---
Subjective Date Seen: Feb 20, 2025 Post op day Post op day: 0 Patient reports: Other (sedated , intubated) Objective Vitals Vital Sign Date Time Temp Pulse Resp B/P (MAP) Pulse Ox O2 Delivery O2 Flow Rate FiO2 02/21/25 09:37 95 126/62 02/21/25 08:00 16 94 Room Air* 0 21 02/21/25 03:00 98.2 98.2 Total Intake and Output 02/20/25 02/20/25 02/21/25 15:00 23:00 07:00 Intake Total 250 ml 900 ml 650 ml Output Total 1300 ml 2200 ml Balance 250 ml -400 ml -1550 ml Medications Current Medications Medications Dose Ordered Sig/Sherron Route Start Time Stop Time Status Last Admin Dose Admin Sodium Chloride 40 meq/Potassium Chloride 40 meq/ Potassium Phosphate 11 meq/ Calcium Gluconate 2.3 meq/Magnesium Sulfate 8 meq/ Multivitamins 10 ml/Chromium/ Copper/Manganese/ Zinc 1 ml/Amino Acids/Dextrose/ Purified Water 1,450.4462 ml @ 60 mls/hr [id number] IV 12/26/24 22:00 12/27/24 21:59 Cancel Sodium Chloride 10 ml QSHIFT@10,22 IV 12/27/24 22:00 02/21/25 09:38 10 ML Artificial Tears 1 drop Q6HP PRN EACHEYE 12/29/24 23:45 01/06/25 09:00 1 DROP Ketamine HCl 50 mg [id number] PRN IV 01/04/25 15:00 01/05/25 07:00 Cancel Sodium Chloride 120 meq/Potassium Chloride 50 meq/ Potassium Acetate 50 meq/Calcium Gluconate 4.65 meq/Magnesium Sulfate 34 meq/ Multivitamins 10 ml/Chromium/ Copper/Manganese/ Zinc 1 ml/Amino Acids/Dextrose/ Purified Water 1,659.5 ml @ 68.108 mls/hr [id number] IV 01/09/25 22:00 01/10/25 21:59 Cancel Sodium Chloride 100 meq/Potassium Chloride 50 meq/ Calcium Gluconate 4.65 meq/ Magnesium Sulfate 34 meq/ Multivitamins 10 ml/Chromium/ Copper/Manganese/ Zinc 1 ml/Sodium Phosphate 20 meq/ Potassium Acetate 50 meq/Amino Acids/Dextrose/ Purified Water 1,659.5 ml @ 68.537 mls/hr [id number] IV 01/09/25 09:30 01/09/25 21:59 Cancel Folic Acid 1 mg DAILY PO 01/20/25 10:00 02/21/25 09:36 1 MG Acetaminophen 650 mg Q6HP PRN GT 01/22/25 10:15 02/10/25 13:20 650 MG Mupirocin 1 applic BID EACHNOSTRI 01/27/25 22:00 02/01/25 21:59 UNV Ipratropium [place] 0.5 mg Q6HR NEB 02/06/25 12:00 02/21/25 06:49 0.5 MG Lorazepam 1 mg ONCE PRN IV 02/06/25 10:45 02/15/25 15:29 1 MG Levalbuterol HCl 1.25 mg Q6HR NEB 02/06/25 18:00 02/21/25 06:49 1.25 MG Acetaminophen/ Hydrocodone Bitart 1 tab Q4HPRN PRN PO 02/10/25 13:45 02/21/25 08:46 1 TAB Ondansetron HCl 4 mg Q4HPRN PRN IV 02/12/25 05:00 02/13/25 21:44 4 MG Sucralfate 1 gm BID@0600,2200 PO 02/12/25 17:15 02/21/25 05:36 1 GM Pantoprazole Sodium 40 mg BID@0600,1700 PO 02/13/25 17:00 02/21/25 05:36 40 MG Enteral Nutritional Formula 240 ml TIDWM PO 02/13/25 18:00 Hold Valproate Sodium 250 mg BID PO 02/13/25 22:00 02/21/25 09:38 250 MG Enteral Nutritional Formula 240 ml TIDWM PO 02/13/25 18:00 02/21/25 08:00 240 ML Ergocalciferol 50,000 unit Q7D PO 02/14/25 07:30 02/21/25 07:30 50,000 UNIT Propranolol HCl 20 mg BID PO 02/14/25 22:00 02/21/25 09:37 20 MG Apixaban 5 mg BID PO 02/14/25 22:00 02/21/25 09:37 5 MG Psyllium Hydrophilic Mucilloid 1 pkg DAILY GT 02/15/25 10:00 9/4/25 09:36 1 PKG Levetiracetam 750 mg BID PO 02/15/25 10:15 02/21/25 09:37 750 MG Primidone 25 mg HS PO 02/18/25 22:00 02/20/25 21:59 25 MG Ketorolac Tromethamine 15 mg Q6HPRN PRN IV 02/19/25 00:15 02/24/25 00:14 Hold 02/20/25 09:00 15 MG Baclofen 10 mg HS PO 02/19/25 22:00 02/20/25 21:57 10 MG Lorazepam 1 mg Q6HP PRN PO 02/19/25 13:45 02/21/25 05:42 1 MG Gabapentin 600 mg TID PO 02/19/25 22:00 02/21/25 05:36 600 MG Sertraline HCl 50 mg DAILY PO 02/20/25 10:00 02/21/25 09:37 50 MG Trazodone HCl 50 mg HS PO 02/19/25 22:00 Saccharomyces Boulardii 250 mg DAILY PO 02/20/25 10:00 02/21/25 09:38 250 MG Oxycodone/ Acetaminophen 1 tab Q4HP PRN PO 02/20/25 14:45 02/21/25 05:36 1 TAB General: Other (intubated) Cardiovascular: Normal, Regular rate and rhythm, Normal heart sound Abdominal: Normal, Soft, Normal inspection, No distension Extremities: Normal Skin: Normal, Normal inspection Labs and Microbiology Laboratory Tests 02/21/25 02:51 Test 02/21/25 02:51 Range/Units Serum Glucose 107 H 74-106 mg/dL Ass/Plan Labs and/or images reviewed: Labs reviewed by me, Image(s) reviewed by me Problem List NEURO: Acute metabolic encephalopathy likely due to in-hospital delirium History of epilepsy Wheelchair-bound 2022 status post fall Night terrors Continue valproate twice daily Diphenhydramine q.6 p.r.n. for agitation, Librium 25 mg TID Keppra b.i.d. Olanzapine 10 mg daily Primdone 25mg hs Lorazepam 2mg q6prn trazodone 50mg hs Seroquel 50 mg daily CARDIOVASCULAR: Septic shock likely due to intra-abdominal sepsis Sinus tachycardia Propranolol 20mg tid PULMONARY: Acute hypoxic respiratory failure status post intubation status post tracheostomy 01/05 decannulation 02/20 Likely acute respiratory distress syndrome-non cardiogenic pulmonary edema- resolving Pleural effusion status post thoracocentesis Nebulized treatments daily GASTROINTESTINAL: Intractable pain secondary to Intra-abdominal sepsis with VRE and peritonitis status post exploratory laparotomy x2 01/05 and 12/27 Status post bowel resection and colostomy Intra-abdominal abscess Splenic fluid collection Pantoprazole 40 mg PO OFF zyvox PO 600 bid, levaquin IV daily 02/12 switched to p.o. 02/14 DC micafungin daily Fentanyl patch 75 mcg, decreased to 25 mcg patch. GENITOURINARY: DC Martinez catheter METABOLIC: Hypoalbuminemia Moderate to severe protein calorie malnutrition Ensure TID HEMATOLOGY/ONCOLOGY Right upper extremity DVT 01/09 Left upper extremity superficial thrombosis Anemia likely normocytic status post 3 packed RBC transfusion Thrombocytosis Lovenox 70 mg b.i.d. to eliquis 02/13 Iron profile consistent with anemia of chronic disease INFECTIOUS DISEASE: Intra-abdominal sepsis with VRE Completed zyvox PO 600 bid, levaquin IV daily 02/12 DC micafungin daily MUSCULOSKELETAL Chronic open dependence Neuropathic Pain Gabapentin 300mg tid Thiamine and folic acid daily Vitamin-D deficiency Supplemented DIET: Pureed diet DVT prophylaxis, Eliquis GI prophylaxis: Protonix Code status: Full code LINES/DRAINS/ACCESS: IV access: Left femoral central line 01/28 till 02/11, peripheral IV is inserted Drips: off Regular Martinez catheter dc 02/11 DISPOSITION: ICU PT daily Patient's status discussed with Family Critical care time spent more than 62 minutes, including patient care, chart review, and updating the family. Excluding any procedures Case discussed with Dr. Bustamante Assessment/Plan diagnosed with colitis, awaiting colonoscopy patient intubated , sedated abdomen soft, non distended colonoscopy per GI pending will occur when patient stable will sign off , no surgical intervention at this time , recall if needed discussed with Dr. Krishna and agrees with plan Exploratory laparotomy, lysis of adhesions and removal of intraperitoneal fibrinous adhesions covering the entire peritoneal cavity. POD#4 patient intubated wound clean , saturated Kerlix over wound, wound dressing changed today all SHIRLENE drains with minimal serous fluid Plan: continue current treatment change every shift change 01/07/2025 Exploratory laparotomy, extensive lysis of adhesions, transverse colostomy and mucus fistula, abdominal lavage, evacuation of abdominal abscesses, repair of sigmoid defect. POD#2 - Patient is intubated and sedated. - Abdomen is soft and non-distended. - Surgical wound appears unremarkable. - The stoma is pink. There is some fluid present in the ostomy bag. - The mucus fistula appears normal. - Tracheostomy site is clean, with no signs of bleeding. Assessment: - The patient is currently receiving Levo-fed at a rate of 6 mcg. - Laboratory results and previous clinical notes have been reviewed. Plan: - A discussion will be held with Dr. Lopez regarding the patient's case. - The current treatment plan will be continued without changes at this time. 01/12/25 Exploratory laparotomy, extensive lysis of adhesions, transverse colostomy and mucous fistula, abdominal lavage, evacuation of abdominal abscesses, repair of sigmoid defect. POD#7 - Patient is intubated and sedated. - Abdomen is soft and non-distended. - Surgical wound vacuum applied. - The stoma is pink with fecal output - The mucus fistula appears normal. - Tracheostomy site is clean, with no signs of bleeding. Assessment: - abdomen soft, non distended - Laboratory results and previous clinical notes have been reviewed. Plan: - A discussion will be held with Dr. Krishna regarding the patient's case. - The current treatment plan will be continued without changes at this time. 25 Exploratory laparotomy, extensive lysis of adhesions, transverse colostomy and mucous fistula, abdominal lavage, evacuation of abdominal abscesses, repair of sigmoid defect. POD#9 - Patient is intubated and sedated. - Abdomen is soft and non-distended. - Surgical wound vacuum applied. - The stoma is pink with fecal output - The mucus fistula appears normal. - Tracheostomy site is clean, with no signs of bleeding. -patient more awake and off pressors Assessment: - abdomen soft, non distended - Laboratory results and previous clinical notes have been reviewed. -wound clean dry and intact, wound vac Plan: - A discussion will be held with Dr. Krishna regarding the patient's case. - The current treatment plan will be continued without changes at this time. - CT scan of abdomen 01/17/25 Exploratory laparotomy, extensive lysis of adhesions, transverse colostomy and mucous fistula, abdominal lavage, evacuation of abdominal abscesses, repair of sigmoid defect. POD#11 - Patient is intubated and sedated. - Abdomen is soft and non-distended. - Surgical wound vacuum applied. - The stoma is pink with fecal output - The mucus ok. - Tracheostomy site is clean, with no signs of bleeding. -patient more awake and off pressors Assessment: - abdomen soft, non distended - Laboratory results and previous clinical notes have been reviewed. -wound clean dry and intact, wound vac Plan: - A discussion will be held with Dr. Krishna regarding the patient's case. - The current treatment plan will be continued without changes at this time. 02/20/25 wound assessment abdominal wound almost completely healed, no drainage seen cleanse wound daily Prognosis: Good, Guarded Plan discussed with patient, Dr. Krishna Visit Coding Surgery Date of Service if different f: Feb 21, 2025 Billing Provider: HUMPHREY KRISHNA MD Surgery Visit Codes: [id number] INP/OBS CARE(HIGH) CYRIL BROWN NP Feb 21, 2025 09:57
[2025-02-21] MEDS ORDERED: APIXABAN 5 MG TAB PO SCH (10:00)
--- NOTE | 2025-02-21 10:28 | DVHPN2 ---
Progress Note Date Seen: Feb 21, 2025 Resident Creating Document: ROBYN CARRANZA RESIDENT Has the PT tested + for MRSA If YES, has PT been informed?: No Medical Necessity Reason Pt with a Central, PICC or Fol: No Subjective Review of Systems Patient seen and examined at bedside Stable from GI point of view Tolerating diet well, denies any nausea vomiting or abdominal pain S/p cannulation of trach Adequate colostomy output Objective vital signs Vital Sign Date Time Temp Pulse Resp B/P (MAP) Pulse Ox O2 Delivery O2 Flow Rate FiO2 02/21/25 09:37 95 126/62 02/21/25 08:00 16 94 Room Air* 0 21 02/21/25 03:00 98.2 98.2 Total Intake and Output 02/20/25 02/20/25 02/21/25 15:00 23:00 07:00 Intake Total 250 ml 900 ml 650 ml Output Total 1300 ml 2200 ml Balance 250 ml -400 ml -1550 ml medications Current Medications Medications Dose Ordered Sig/Sherron Route Start Time Stop Time Status Last Admin Dose Admin Sodium Chloride 40 meq/Potassium Chloride 40 meq/ Potassium Phosphate 11 meq/ Calcium Gluconate 2.3 meq/Magnesium Sulfate 8 meq/ Multivitamins 10 ml/Chromium/ Copper/Manganese/ Zinc 1 ml/Amino Acids/Dextrose/ Purified Water 1,450.4462 ml @ 60 mls/hr [id number] IV 12/26/24 22:00 12/27/24 21:59 Cancel Sodium Chloride 10 ml QSHIFT@10,22 IV 12/27/24 22:00 02/21/25 09:38 10 ML Artificial Tears 1 drop Q6HP PRN EACHEYE 12/29/24 23:45 01/06/25 09:00 1 DROP Ketamine HCl 50 mg [id number] PRN IV 01/04/25 15:00 01/05/25 07:00 Cancel Sodium Chloride 120 meq/Potassium Chloride 50 meq/ Potassium Acetate 50 meq/Calcium Gluconate 4.65 meq/Magnesium Sulfate 34 meq/ Multivitamins 10 ml/Chromium/ Copper/Manganese/ Zinc 1 ml/Amino Acids/Dextrose/ Purified Water 1,659.5 ml @ 68.108 mls/hr [id number] IV 01/09/25 22:00 01/10/25 21:59 Cancel Sodium Chloride 100 meq/Potassium Chloride 50 meq/ Calcium Gluconate 4.65 meq/ Magnesium Sulfate 34 meq/ Multivitamins 10 ml/Chromium/ Copper/Manganese/ Zinc 1 ml/Sodium Phosphate 20 meq/ Potassium Acetate 50 meq/Amino Acids/Dextrose/ Purified Water 1,659.5 ml @ 68.537 mls/hr [id number] IV 01/09/25 09:30 01/09/25 21:59 Cancel Folic Acid 1 mg DAILY PO 01/20/25 10:00 02/21/25 09:36 1 MG Acetaminophen 650 mg Q6HP PRN GT 01/22/25 10:15 02/10/25 13:20 650 MG Mupirocin 1 applic BID EACHNOSTRI 01/27/25 22:00 02/01/25 21:59 UNV Ipratropium [place] 0.5 mg Q6HR NEB 02/06/25 12:00 02/21/25 06:49 0.5 MG Lorazepam 1 mg ONCE PRN IV 02/06/25 10:45 02/15/25 15:29 1 MG Levalbuterol HCl 1.25 mg Q6HR NEB 02/06/25 18:00 02/21/25 06:49 1.25 MG Acetaminophen/ Hydrocodone Bitart 1 tab Q4HPRN PRN PO 02/10/25 13:45 02/21/25 08:46 1 TAB Ondansetron HCl 4 mg Q4HPRN PRN IV 02/12/25 05:00 02/13/25 21:44 4 MG Sucralfate 1 gm BID@0600,2200 PO 02/12/25 17:15 02/21/25 05:36 1 GM Pantoprazole Sodium 40 mg BID@0600,1700 PO 02/13/25 17:00 02/21/25 05:36 40 MG Enteral Nutritional Formula 240 ml TIDWM PO 02/13/25 18:00 Hold Valproate Sodium 250 mg BID PO 02/13/25 22:00 02/21/25 09:38 250 MG Enteral Nutritional Formula 240 ml TIDWM PO 02/13/25 18:00 02/21/25 08:00 240 ML Ergocalciferol 50,000 unit Q7D PO 02/14/25 07:30 02/21/25 07:30 50,000 UNIT Propranolol HCl 20 mg BID PO 02/14/25 22:00 02/21/25 09:37 20 MG Apixaban 5 mg BID PO 02/14/25 22:00 02/21/25 09:37 5 MG Psyllium Hydrophilic Mucilloid 1 pkg DAILY GT 02/15/25 10:00 02/21/25 09:36 1 PKG Levetiracetam 750 mg BID PO 02/15/25 10:15 02/21/25 09:37 750 MG Primidone 25 mg HS PO 02/18/25 22:00 02/20/25 21:59 25 MG Ketorolac Tromethamine 15 mg Q6HPRN PRN IV 02/19/25 00:15 02/24/25 00:14 Hold 02/20/25 09:00 15 MG Baclofen 10 mg HS PO 02/19/25 22:00 02/20/25 21:57 10 MG Lorazepam 1 mg Q6HP PRN PO 02/19/25 13:45 02/21/25 05:42 1 MG Gabapentin 600 mg TID PO 02/19/25 22:00 02/21/25 05:36 600 MG Sertraline HCl 50 mg DAILY PO 02/20/25 10:00 02/21/25 09:37 50 MG Trazodone HCl 50 mg HS PO 02/19/25 22:00 Saccharomyces Boulardii 250 mg DAILY PO 02/20/25 10:00 02/21/25 09:38 250 MG Oxycodone/ Acetaminophen 1 tab Q4HP PRN PO 02/20/25 14:45 02/21/25 05:36 1 TAB Examination Patient sitting comfortably in the chair, out of bed, well conversational, no acute distress General: Well-built, afebrile, palor, mucosae are moist Cardiovascular: Tachycardic but Regular S1 and S2. No murmurs, gallops or rubs. No JVD elevation. No pedal edema Respiratory: Normal B/L air entry RA bilateral equal air entry Abdomen: Soft, nontender, nondistended, normoactive bowel sounds, no rebound tenderness, no organomegaly, no masses Genitourinary: [place] dc MSK/skin: Patient is ambulating Neurological: Pupils are isocoric and reactive. Psych/Mental Status: A/Ox3 laboratory and microbiology Laboratory Tests 02/21/25 02:51 Test 02/21/25 02:51 Range/Units Serum Glucose 107 H 74-106 mg/dL Microbiology Date/Time Source Procedure Growth Status 02/07/25 02:15 Urine - [place] Urine Culture - Final Complete 01/22/25 18:44 Blood Blood Culture - Final NO GROWTH AFTER 5 DAYS OF INCUBATION. Complete 01/18/25 10:40 Sputum Gram Stain - Final Complete 01/18/25 10:40 Sputum Respiratory Culture - Final Complete 01/05/25 08:15 Other Abscess Gram Stain - Final Complete 01/05/25 08:15 Other Abscess Anaerobic Culture - Final Complete 01/05/25 08:15 Aerobic Culture - Final Enterococcus faecium - VRE Complete 01/05/25 08:02 Peritoneal Fluid Gram Stain - Final Complete 01/05/25 08:02 Peritoneal Fluid Anaerobic Culture - Final Complete 01/05/25 08:02 Aerobic Culture - Final Enterococcus faecium - VRE Citrobacter freundii Vanc Resistant Enterococcus Complete Labs and/or images reviewed: Labs reviewed by me, Image(s) reviewed by me Problem List/Assessment/Plan Problem List/Assessment/Plan Acute peritonitis S/P laparotomy with bowel resection with colostomy and abscess drainage Intra-abdominal sepsis, VRE/Citrobacter peritonitis Splenic fluid collection; CT abdomen pelvis from 01/25/2025: Trace ascites with component of loculation over the anterior lower abdomen left lateral upper abdomen. 6.1 x 1.5 x 11 cm loculated fluid over the left upper abdominal quadrant lateral to the spleen with a Left mid to lower abdominal approach drainage catheter terminating over the inferior portion of the fluid collection. The loculated fluid are marginally decreased in size from prior imaging. Sigmoid colon injury Acute hypoxic respiratory failure, s/p extubation with trach collar Constipation New onset heartburn/GERD Plan: Increased IV Protonix 40 mg b.i.d. Added Carafate 1 g b.i.d. Monitor colostomy output for volume, consistency and viability S/p decannulation of tracheostomy Continue antibiotics Soft mechanical diet Thank you so much for the opportunity to consult on your patient. GI team will follow the patient. In case of any questions or concerns please feel free to reach out. Plan discussed with Dr. Bailey Plan discussed with: Other (RN) Dietary Evaluation Review Comments: 1. TF: Vital AF@50ml/hr (90g protein, 1440kcal 973 free water) meeting Protein needs 83%, energy needs 80%. 2. TPN per pharmacy meeting 75% of his needs if TF not feasible or NPO>7 days. 3. Diet as tolerated per SPECIAL SYSTEMS TECHNICIAN eval when off Vent Expected Outcomes/Goals: Preventing catabolism ROBYN CARRANZA RESIDENT Feb 21, 2025 10:28
[2025-02-21] MEDS ORDERED: PROP1TAB53 PO (16:34)
[2025-02-21] MEDS ORDERED: PANT40T PO (16:34)
[2025-02-21] MEDS ORDERED: APIX5TAB PO (16:34)
[2025-02-21] MEDS ORDERED: ERGO1CAP23 PO (16:34)
[2025-02-21] MEDS ORDERED: NUTR-1045 PO (16:34)
--- NOTE | 2025-02-21 18:04 | DVHPNRES ---
Progress Note Date Seen: Feb 21, 2025 Resident Creating Document: VALERIE HESTER RESIDENT Has the PT tested + for MRSA If YES, has PT been informed?: No Medical Necessity Reason Pt with a Central, PICC or Fol: No Subjective Review of Systems This is a 44-year-old male with a epilepsy, chronic pain syndrome on opiates, gout who is hospital stay has been prolonged secondary to acute peritonitis, intra-abdominal sepsis status post exploratory laparotomy 12/27 and repeated on 01/05, intra-abdominal sepsis with Citrobacter and VRE, perisplenic collection, status post colostomy and tracheostomy 01/05 and a right upper arm DVT 01/09 02/11 - Overnight, patient is afebrile, tachycardic into 120s but Sinus, tachypneic intermittently, normotensive, on TPs at 10 L with 35% FiO2. Urine output 1400, stool output 2-5 cc from colostomy. Patient is sitting in the chair comfortably, CBC stable, CMP unremarkable, started clear liquid diet. DC Precedex today. dc navarrete 02/13 - patient seen, axo3, onto chair, on cl liq diet, transitioning to eliquis, , restraining bands for PT, meds to po, dc micafungin, zyvox PO, ensure added 02/14 - patient seen and examined, reports neuropathic pain, started gabapentin 300 mg TID, Levaquin since to p.o.. Started pureed diet. Trach downsized to 4.0 shiley, brief episode of desaturation to 88, improved on 5 L 02/15 - patient seen and examined, onto chair, on room air, PT on board. 02/18 - patient on a chair, on room air, reports night terrors 02/19-no overnight events, on room air, consulted for SNF placement, started patient's home medication sertraline and trazodone. Gabapentin increased to 600 mg TID. Baclofen added HS. Continuing physical therapy. 02/20-decannulation of trach completed, patient tolerated well. Fentanyl patch decreased to 25 02/21-site of trach insertion has closed well, appropriate scar, no discharge or erythema noted, no air leak is seen or noted on examination. Home health and nursing facility could not be arranged per director of social services given out of network insurance. Patient agreed to be discharged home. PATIENT SCHEDULED HIS OWN FOLLOW UP APPOINTMENT WITH PRIMARY MITCH RUIZ MD [phone] FOR 02/22 AT 10:30AM AT [address] [place] [address] Objective vital signs Vital Sign Date Time Temp Pulse Resp B/P (MAP) Pulse Ox O2 Delivery O2 Flow Rate FiO2 02/21/25 16:00 20 97 Room Air* 0 21 02/21/25 16:00 97 02/21/25 12:45 98.2 118/81 (93) 98.2 Total Intake and Output 02/20/25 02/20/25 02/21/25 15:00 23:00 07:00 Intake Total 250 ml 900 ml 650 ml Output Total 1300 ml 2200 ml Balance 250 ml -400 ml -1550 ml medications Current Medications Medications Dose Ordered Sig/Sherron Route Start Time Stop Time Status Last Admin Dose Admin Sodium Chloride 40 meq/Potassium Chloride 40 meq/ Potassium Phosphate 11 meq/ Calcium Gluconate 2.3 meq/Magnesium Sulfate 8 meq/ Multivitamins 10 ml/Chromium/ Copper/Manganese/ Zinc 1 ml/Amino Acids/Dextrose/ Purified Water 1,450.4462 ml @ 60 mls/hr [id number] IV 12/26/24 22:00 12/27/24 21:59 Cancel Sodium Chloride 10 ml QSHIFT@10,22 IV 12/27/24 22:00 02/21/25 09:38 10 ML Artificial Tears 1 drop Q6HP PRN EACHEYE 12/29/24 23:45 01/06/25 09:00 1 DROP Ketamine HCl 50 mg [id number] PRN IV 01/04/25 15:00 01/05/25 07:00 Cancel Sodium Chloride 120 meq/Potassium Chloride 50 meq/ Potassium Acetate 50 meq/Calcium Gluconate 4.65 meq/Magnesium Sulfate 34 meq/ Multivitamins 10 ml/Chromium/ Copper/Manganese/ Zinc 1 ml/Amino Acids/Dextrose/ Purified Water 1,659.5 ml @ 68.108 mls/hr [id number] IV 01/09/25 22:00 01/10/25 21:59 Cancel Sodium Chloride 100 meq/Potassium Chloride 50 meq/ Calcium Gluconate 4.65 meq/ Magnesium Sulfate 34 meq/ Multivitamins 10 ml/Chromium/ Copper/Manganese/ Zinc 1 ml/Sodium Phosphate 20 meq/ Potassium Acetate 50 meq/Amino Acids/Dextrose/ Purified Water 1,659.5 ml @ 68.537 mls/hr [id number] IV 01/09/25 09:30 01/09/25 21:59 Cancel Folic Acid 1 mg DAILY PO 01/20/25 10:00 02/21/25 09:36 1 MG Acetaminophen 650 mg Q6HP PRN GT 01/22/25 10:15 02/10/25 13:20 650 MG Mupirocin 1 applic BID EACHNOSTRI 01/27/25 22:00 02/01/25 21:59 UNV Ipratropium [place] 0.5 mg Q6HR NEB 02/06/25 12:00 02/21/25 12:00 0.5 MG Lorazepam 1 mg ONCE PRN IV 02/06/25 10:45 02/15/25 15:29 1 MG Levalbuterol HCl 1.25 mg Q6HR NEB 02/06/25 18:00 02/21/25 12:00 1.25 MG Acetaminophen/ Hydrocodone Bitart 1 tab Q4HPRN PRN PO 02/10/25 13:45 02/21/25 13:55 1 TAB Ondansetron HCl 4 mg Q4HPRN PRN IV 02/12/25 05:00 02/13/25 21:44 4 MG Sucralfate 1 gm BID@0600,2200 PO 02/12/25 17:15 02/21/25 05:36 1 GM Pantoprazole Sodium 40 mg BID@0600,1700 PO 02/13/25 17:00 02/21/25 16:35 40 MG Enteral Nutritional Formula 240 ml TIDWM PO 02/13/25 18:00 Hold Valproate Sodium 250 mg BID PO 02/13/25 22:00 02/21/25 09:38 250 MG Enteral Nutritional Formula 240 ml TIDWM PO 02/13/25 18:00 02/21/25 12:00 240 ML Ergocalciferol 50,000 unit Q7D PO 02/14/25 07:30 02/21/25 07:30 50,000 UNIT Propranolol HCl 20 mg BID PO 02/14/25 22:00 02/21/25 09:37 20 MG Apixaban 5 mg BID PO 02/14/25 22:00 02/21/25 09:37 5 MG Psyllium Hydrophilic Mucilloid 1 pkg DAILY GT 02/15/25 10:00 02/21/25 09:36 1 PKG Levetiracetam 750 mg BID PO 02/15/25 10:15 02/21/25 09:37 750 MG Primidone 25 mg HS PO 02/18/25 22:00 02/20/25 21:59 25 MG Ketorolac Tromethamine 15 mg Q6HPRN PRN IV 02/19/25 00:15 02/24/25 00:14 Hold 02/20/25 09:00 15 MG Baclofen 10 mg HS PO 02/19/25 22:00 02/20/25 21:57 10 MG Lorazepam 1 mg Q6HP PRN PO 02/19/25 13:45 02/21/25 12:38 1 MG Gabapentin 600 mg TID PO 02/19/25 22:00 02/21/25 13:55 600 MG Sertraline HCl 50 mg DAILY PO 02/20/25 10:00 02/21/25 09:37 50 MG Trazodone HCl 50 mg HS PO 02/19/25 22:00 Saccharomyces Boulardii 250 mg DAILY PO 02/20/25 10:00 02/21/25 09:38 250 MG Oxycodone/ Acetaminophen 1 tab Q4HP PRN PO 02/20/25 14:45 02/21/25 16:34 1 TAB Examination Patient sitting comfortably in the chair, out of bed, well conversational, no acute distress General: Well-built, afebrile, palor, mucosae are moist Cardiovascular: Tachycardic but Regular S1 and S2. No murmurs, gallops or rubs. No JVD elevation. No pedal edema Respiratory: Normal B/L air entry RA bilateral equal air entry Abdomen: Soft, nontender, nondistended, normoactive bowel sounds, no rebound tenderness, no organomegaly, no masses Genitourinary: Navarrete dc MSK/skin: Patient is ambulating Neurological: Pupils are isocoric and reactive. Psych/Mental Status: A/Ox3 laboratory and microbiology Laboratory Tests 02/21/25 02:51 Test 02/21/25 02:51 Range/Units Serum Glucose 107 H 74-106 mg/dL Microbiology Date/Time Source Procedure Growth Status 02/07/25 02:15 Urine - [place] Urine Culture - Final Complete 01/22/25 18:44 Blood Blood Culture - Final NO GROWTH AFTER 5 DAYS OF INCUBATION. Complete 01/18/25 10:40 Sputum Gram Stain - Final Complete 01/18/25 10:40 Sputum Respiratory Culture - Final Complete 01/05/25 08:15 Other Abscess Gram Stain - Final Complete 01/05/25 08:15 Other Abscess Anaerobic Culture - Final Complete 01/05/25 08:15 Aerobic Culture - Final Enterococcus faecium - VRE Complete 01/05/25 08:02 Peritoneal Fluid Gram Stain - Final Complete 01/05/25 08:02 Peritoneal Fluid Anaerobic Culture - Final Complete 01/05/25 08:02 Aerobic Culture - Final Enterococcus faecium - VRE Citrobacter freundii Vanc Resistant Enterococcus Complete Labs and/or images reviewed: Labs reviewed by me, Image(s) reviewed by me Problem List/Assessment/Plan Problem List/Assessment/Plan NEURO: Acute metabolic encephalopathy likely due to in-hospital delirium History of epilepsy Wheelchair-bound 2022 status post fall Night terrors Continue valproate twice daily Diphenhydramine q.6 p.r.n. for agitation, Librium 25 mg TID Keppra b.i.d. Olanzapine 10 mg daily Primdone 25mg hs Lorazepam 2mg q6prn trazodone 50mg hs Seroquel 50 mg daily CARDIOVASCULAR: Septic shock likely due to intra-abdominal sepsis Sinus tachycardia Propranolol 20mg tid PULMONARY: Acute hypoxic respiratory failure status post intubation status post tracheostomy 01/05 decannulation 02/20 Likely acute respiratory distress syndrome-non cardiogenic pulmonary edema- resolving Pleural effusion status post thoracocentesis Nebulized treatments daily GASTROINTESTINAL: Intractable pain secondary to Intra-abdominal sepsis with VRE and peritonitis status post exploratory laparotomy x2 01/05 and 12/27 Status post bowel resection and colostomy Intra-abdominal abscess Splenic fluid collection Pantoprazole 40 mg PO OFF zyvox PO 600 bid, levaquin IV daily 02/12 switched to p.o. 02/14 DC micafungin daily Fentanyl patch 75 mcg, decreased to 25 mcg patch. GENITOURINARY: DC Navarrete catheter METABOLIC: Hypoalbuminemia Moderate to severe protein calorie malnutrition Ensure TID HEMATOLOGY/ONCOLOGY Right upper extremity DVT 01/09 Left upper extremity superficial thrombosis Anemia likely normocytic status post 3 packed RBC transfusion Thrombocytosis Lovenox 70 mg b.i.d. to eliquis 02/13 Iron profile consistent with anemia of chronic disease INFECTIOUS DISEASE: Intra-abdominal sepsis with VRE Completed zyvox PO 600 bid, levaquin IV daily 02/12 DC micafungin daily MUSCULOSKELETAL Chronic open dependence Neuropathic Pain Gabapentin 300mg tid Thiamine and folic acid daily Vitamin-D deficiency Supplemented DIET: Pureed diet DVT prophylaxis, Eliquis GI prophylaxis: Protonix Code status: Full code LINES/DRAINS/ACCESS: IV access: Left femoral central line 01/28 till 02/11, peripheral IV is inserted Drips: off Navarrete catheter dc 02/11 DISPOSITION: Telemetry PT daily Patient's status discussed with Family Critical care time spent more than 59 minutes, including patient care, chart review, and updating the family. Excluding any procedures Case discussed with Dr. Pérez Plan discussed with: Patient My Orders My Orders Orders - VALERIE HESTER Procedure Category Date Status Time * Steel Pourer CONS 02/21/25 Transmitted Consult 16:23 Discharge DISCHARGE 02/21/25 Transmitted 16:24 Transfer Orders XFER 02/21/25 Transmitted 16:54 Dietary Evaluation Review Comments: 1. TF: Vital AF@50ml/hr (90g protein, 1440kcal 973 free water) meeting Protein needs 83%, energy needs 80%. 2. TPN per pharmacy meeting 75% of his needs if TF not feasible or NPO>7 days. 3. Diet as tolerated per TREASURY REPRESENTATIVE eval when off Vent Expected Outcomes/Goals: Preventing catabolism Date of Service: Feb 21, 2025 Billing Provider: MARIELA PÉREZ MD Common Visit Codes: [id number] CARE 30-74 MIN VALERIE HESTER Feb 21, 2025 18:04 MARIELA PÉREZ MD Feb 23, 2025 15:37
--- NOTE | 2025-02-21 18:05 | DVHDSRES ---
Discharge Summary Date of Admission Resident Creating Document: VALERIE HESTER RESIDENT Dec 17, 2024 at 17:43 Date of Discharge: Feb 04, 2025 Labs/Diagnostic Data: Laboratory Results Test 02/21/25 02:51 02/20/25 02:57 02/19/25 03:21 02/18/25 03:20 White Blood Count 10.9 10^3/uL (4.4-10.8) Red Blood Count 3.37 10^6/uL (4.5-5.90) Hemoglobin 9.5 g/dL (13.5-17.5) Hematocrit 28.3 % (41.0-53.0) Mean Corpuscular Volume 83.9 fL (80.0-100.0) Mean Corpuscular Hemoglobin 28.1 pg (28.0-32.0) Mean Corpuscular Hemoglobin Concent 33.5 g/dL (32.0-36.0) Red Cell Distribution Width 18.3 % (11.8-14.3) Platelet Count 371 10^3/uL (140-450) Mean Platelet Volume 6.1 fL (6.9-10.8) Neutrophils (%) (Auto) 67.4 % (37.0-80.0) Lymphocytes (%) (Auto) 18.5 % (10.0-50.0) Monocytes (%) (Auto) 8.9 % (0.0-12.0) Eosinophils (%) (Auto) 4.3 % (0.0-7.0) Basophils (%) (Auto) 0.9 % (0.0-2.0) Neutrophils # (Auto) 7.3 10 ^3/uL (1.6-8.6) Lymphocytes # (Auto) 2.0 10 ^3/uL (0.4-5.4) Monocytes # (Auto) 1.0 10 ^3/uL (0-1.3) Eosinophils # (Auto) 0.5 10 ^3/uL (0-0.8) Basophils # (Auto) 0.1 10 ^3/uL (0-0.2) Nucleated Red Blood Cells 0.0 % Sodium Level 137 mmol/L (136-145) Potassium Level 4.5 mmol/L (3.5-5.1) Chloride Level 103 mmol/L (98-107) Carbon Dioxide Level 25 mmol/L (20-31) Anion Gap 9 (5-15) Blood Urea Nitrogen 16 mg/dL (9-23) Creatinine 0.61 mg/dL (0.700-1.30) Glomerular Filtration Rate Calc 123 mL/min (>90) BUN/Creatinine Ratio 26.2 (10.0-20.0) Serum Glucose 107 mg/dL (74-106) Calcium Level 8.8 mg/dL (8.7-10.4) Valproic Acid Level 16.1 ug/mL (50-100) Magnesium Level 1.7 mg/dL (1.6-2.6) Total Bilirubin 0.2 mg/dL (0.2-1.0) Aspartate Amino Transferase (AST) 15 U/L (13-40) Alanine Aminotransferase (ALT) 14 U/L (7-40) Alkaline Phosphatase 81 U/L (46-116) Total Protein 6.5 g/dL (5.7-8.2) Albumin 3.7 g/dL (3.2-4.8) Test 02/15/25 02:30 02/14/25 03:07 02/13/25 04:27 02/09/25 07:37 Reticulocyte Count (auto) 1.63 % (0.5-1.5) Iron Level 26 ug/dL (65-175) Total Iron Binding Capacity 207 ug/dL (250-425) Percent Iron Saturation 12.6 % (20-55) Ferritin 128.4 ng/mL (22-322) Vitamin B12 Level 821 pg/mL (211-911) Vitamin D 25-Hydroxy 21.6 ng/mL (30.0-100) C-Reactive Protein High Sensitivity 0.71 mg/dL (<1.0) Blood Gas Specimen Type Arterial Blood Gas Sample Site Right radial Blood Gas Patient Temperature 37.0 Arterial Blood Date Drawn [id number] Arterial Blood pH 7.456 (7.350-7.450) Arterial Blood Partial Pressure CO2 42.4 mmHg (35.0-48.0) Arterial Blood Partial Pressure O2 87.5 mmHg (83.0-108.0) Arterial Blood HCO3 29.2 mmol/L (21.0-28.0) Arterial Blood Oxygen Saturation 95.5 % (94.0-98.0) Arterial Blood Base Excess 4.8 mmol/L (-2.0-3.0) Arterial Blood Oxyhemoglobin 95.4 % (94.0-98.0) Arterial Blood Carboxyhemoglobin 0.1 % (0.5-1.5) Arterial Blood Methemoglobin 0.0 % (0.0-1.5) Manan Test Yes Blood Gas Total Hemoglobin 10.10 g/dL (13.5-17.5) Blood Gas Modality T piece FiO2 % 35.0 Test 02/07/25 12:13 02/07/25 06:25 02/06/25 10:27 02/06/25 07:10 POC Glucose 127 mg/dl (70-106) Blood Gas Set Respiration Rate 24.0 Blood Gas Tidal Volume 400.0 Blood Gas PEEP or CPAP 5.0 Creatine Kinase 74 U/L (46-171) Blood Gas Pressure Support 10 Test 02/04/25 09:27 02/01/25 03:08 01/29/25 08:18 01/27/25 03:30 Blood Gas Liter Flow 12.00 Blood Gas Comments Prothrombin Time 11.9 sec (9.3-11.8) Prothrombin Time INR 1.14 (0.9-1.15) Activated Partial Thromboplast Time 36.1 SEC (24.5-34.5) Specimen Drawn By stock sheets cleaner inspector juan jose, Phosphorus Level 4.9 mg/dL (2.4-5.1) Test 01/26/25 03:32 01/22/25 07:04 01/18/25 03:00 01/07/25 06:56 Triglycerides Level 203 mg/dL (< 150) Blood Gas Spontaneous Rate 32 Cholesterol Level 157 mg/dL (< 200) LDL Cholesterol 116 mg/dL (< 100) HDL Cholesterol 22 mg/dL (40-59) Blood Gas Critical Value Read Back Yes Blood Gas Notified Whom batsheva Merritt md Blood Gas Notified Time [id number] Blood Gas Notified By tylor Dacosta stock sheets cleaner inspector Test 01/06/25 02:37 01/01/25 12:30 12/29/24 03:28 12/28/24 08:15 Differential Total Cells Counted 100.0 (100) Neutrophils % (Manual) 89 (37.0-80.0) Band Neutrophils % (Manual) 0 Lymphocytes % (Manual) 6 (10.0-50.0) Monocytes % (Manual) 4 (0-12) Eosinophils % (Manual) 0 (0-7) Basophils % (Manual) 0 (0.0-2.0) Metamyelocytes % (manual) 1 Myelocytes % (Manual) 0 Promyelocytes % (Manual) 0 Blast Cells % (Manual) 0 Reactive Lymphocytes 0 Platelet Estimate Marked Large Platelets Few Body Fluid Source Pleural fluid Body Fluid pH 8.0 Body Fluid WBC (Manual) 5643 CUMM (0-200) Body Fluid RBC (Manual) 8194 CUMM (0-2000) Body Fluid Mononuclear Cells 27 % Body Fluid Polymorphonuclear Cells 73 % (0-25) Body Fluid Glucose 94 mg/dL (.) Body Fluid Total Protein 3.1 g/dL (.) Body Fluid Lactate Dehydrogenase 589 IU/L (.) Vancomycin Level Trough 15.3 ug/mL (5-10) Blood Gas Inspiratory Pressure 26.0 Test 12/28/24 05:52 12/27/24 20:05 12/22/24 03:02 12/20/24 09:19 Lactic Acid Level 3.0 mmol/L (0.4-2.0) Random Vancomycin Level 15.3 ug/mL (5-10) Smudge Cells 4 /100 WBC Ammonia 23 umol/L (11-32) Test 12/19/24 03:30 12/18/24 08:41 12/18/24 08:16 12/18/24 07:51 Lipase 17 U/L (12-53) Hepatitis A Antibody Total Negative (Negative) Hepatitis B Surface Antigen Negative (Negative) Hepatitis B Surface Antibody Negative (Negative) Hepatitis B Core Total Antibody Negative (Negative) Hepatitis C Antibody Negative (Negative) Hepatitis A IgM Antibody Negative Hepatitis B Core IgM Antibody Negative (Negative) HIV (1&2) Antibody Negative (Negative) Urine Color Dark-brown (Yellow) Urine Clarity Ex.turbid (Clear) Urine pH 6.0 (5.0-9.0) Urine Specific [place] 1.041 (1.001-1.035) Urine Protein 1+ (Negative) Urine Ketones Negative (Negative) Urine Blood Trace /uL (Negative) Urine Nitrite Negative (Negative) Urine Bilirubin Negative (Negative) Urine Urobilinogen Normal mg/dL (Negative) Urine Leukocyte Esterase Negative /uL (Negative) Urine RBC 30 /hpf (0 - 3) Urine WBC Clumps Present /hpf (None Seen) Urine Microscopic WBC 151 /HPF (0-3) Urine Squamous Epithelial Cells None seen /hpf (<5) Urine Bacteria None seen /hpf (None Seen) Urine Mucus Few (None Seen) Urine Glucose Normal mg/dL (Normal) Uric Acid 5.1 mg/dL (3.7-9.2) Thyroid Stimulating Hormone (TSH) 0.59 uIU/mL (0.55-4.78) Test 12/18/24 02:44 12/18/24 00:18 12/17/24 19:38 12/17/24 11:58 Urine Opiates Screen Neg (NEGATIVE) Urine Fentanyl Screen Pos (NEGATIVE) Urine Barbiturates Screen Neg (NEGATIVE) Urine Phencyclidine Screen Neg (NEGATIVE) Urine Amphetamines Screen Neg (NEGATIVE) Urine Benzodiazepines Screen Pos (NEGATIVE) Urine Cocaine Screen Neg (NEGATIVE) Urine Cannabinoids Screen Pos (NEGATIVE) Troponin I High Sensitivity 112 ng/L (</=54) Hemoglobin A1c 5.3 % A1C (<5.7) Other Laboratory Tests 02/21/25 02:51 Brief Hx & Hospital Course: Patient is a 44-year-old male with a medical history of epilepsy, chronic pain, gout presented to the ER with a excruciating right lower quadrant abdominal pain as per mother. They report that the patient had chronic constipation for the last year and in the last 1 month did not have any stool and at home were taking stool softeners and coconut water. Patient was also taking chronic opioids oxycodone and benzodiazepines- alprazolam. On arrival to the ED patient had worsening respiratory distress following which he was intubated and put on mechanical ventilation. Patient had severe abdominal pain, CT abdomen pelvis was done which showed diffuse colitis with small perihepatic ascites. Patient was started on empiric antibiotic therapy with Zosyn. He required escalating vasopressor support overnight and had elevated WBC count with lactic acidosis. Patient did not have any bowel movement and repeat CT showed mild ileus pattern with possible colitis, moderate volume abdominal ascites following which patient was given a soap water enema which was unsuccessful and patient was started MiraLax, Reglan and fentanyl was tried to titrate down. As the patient still did not have any bowel movements he was given methylnaltrexone. In the next 2 days patient started to have fevers with a high gastric residuals following which Gastrografin bowel series was ordered which was normal and showed large stool burden. A Dobbhoff tube was placed at the junction of the 2nd and the 3rd portion of the duodenum and KUB was done which showed nonobstructive obstructive bowel gas pattern. Patient still did not have any bowel movement following which GI took the patient for a colonoscopy on 12/26 which showed residual was stool in the rectosigmoid, ischemic area in the paroxysmal sigmoid, junction of sigmoid and descending colon with a large area of fluid collection and 6 L of greenish brown liquid was aspirated along with some stool, possibility that the patient had previous area spontaneous perforation and this fluid was aspirated from the peritoneal cavity and colonoscope was not advanced beyond that. Surgery were consulted and patient underwent exploratory laparotomy on 12/27 which showed fibrous lesions all over the small bowel, colon, liver, stomach with a thick fibrinous exudate, due to with the lesions was difficult to mobilize the bowel but no perforation was seen on the bowel which could be mobilized, 4 SHIRLENE drains were inserted and abdomen was closed. Cultures from the abdominal exudate showed growth of VRE following which patient was started on linezolid. CT abdomen pelvis from 12/31 showed rim enhancing fluid collection measuring 34 X 24 cm with mesenteric edema, multiple other small developing collections. Interventional Radiology were consulted and a drain was placed on 01/01. Patient is still did not have any bowel movement and continued to have fevers following which another exploratory laparotomy was done on 01/05 which showed extensive with the lesions, sigmoid colon perforation was seen which was repaired and right transverse colostomy was done along with a mucous fistula, 2 SHIRLENE drains were put on each side of the abdomen, wall was closed in the wound left open with a wound VAC. Patient underwent tracheostomy on the same day on 01/05. Peritoneal fluid cultures showed growth of Enterococcus faecium VRE and Citrobacter freundii for which the patient is on linezolid, meropenem and micafungin. Patient was started on TPN. Few days after the exploratory laparotomy patient continued to have fevers following cultures were repeated which did not show any growth but as he continued to have fevers another CT abdomen pelvis with IV contrast was repeated on 01/14 which showed Encapsulated collection in the perisplenic space extending to the left paracolic gutter measuring 12.8 x 1.9 cm. Surgery recommended against any intervention for the perisplenic abscess. Patient was started on feeding with a post pyloric Dobbhoff tube and was slowly transitioned from TPN to enteric feeding with a positive bowel sounds and stool output from the colostomy. Bilateral SHIRLENE drains eventually removed. Wound VAC was applied to the midline incision, gradually healing without any signs of pus, inflammation. With the patient is still continued to have fevers and another CT abdomen pelvis with IV contrast was done on 01/25 which showed Trace ascites with component of loculation over the anterior lower abdomen left lateral upper abdomen. 6.1 x 1.5 x 11 cm loculated fluid over the left upper abdominal quadrant lateral to the spleen with a Left mid to lower abdominal approach drainage catheter terminating over the inferior portion of the fluid collection. The loculated fluid are marginally decreased in size from prior imaging. Right upper arm PICC line was removed and cultures were repeated which showed no growth. Patient continued to be on linezolid, meropenem and micafungin. As the patient was on chronic opioid before coming to the hospital and while in the hospital had to be on high doses of sedatives including midazolam, propofol, fentanyl and ketamine he was slowly weaned off from sedation. While weaning the patient off sedation he got severely agitated likely due to delirium and had to be put on scheduled Haldol and high-dose Precedex to manage delirium. Patient was weaned off sedatives, started on fentanyl patch which was slowly decreased to 25mcg and later discontinued. He had persistent sinus tachy and propranolol 20 mg bid was started, He was kept on T-piece which he tolerated, and oxygen requirement went down and trach was decreased in size and later decannulated. Cl liq diet was started which was gradually increased to soft diet, patient reported symptoms of gerd and PPI were started, which provided relief, Wound VAC connected to the midline incision of exploratory laparotomy which is healing and no signs of inflammation, pus. Patient does not have any fever, Patient has right upper extremity deep venous thrombosis and left upper extremity superficial vein thrombosis and is on Lovenox therapeutic dose. Transitioned to Eliquis 5mg bid. Neurolgist recommended - Continue valproate twice daily, Diphenhydramine q.6 p.r.n. for agitation, Librium 25 mg TID, Keppra b.i.d., Olanzapine 10 mg daily, Primdone 25mg hs, Lorazepam 2mg q6prn, trazodone 50mg hs, Seroquel 50 mg daily IV micafungin was dc'ed and and IV Zyvox switched to POand the patient completed his course of antibiotics.TLC DC'ed 02/11, navarrete was dc'ed , patient tolerated well. Wound vac was dc'ed, wound was well approximated, no tenderness or erythema, minimal discharge noted. Chest x-ray is improving daily with a improving aeration of the right lung field, there is right hemidiaphragm elevation and patient is on Lasix 40 mg IV daily with good urine output and net negative fluid balance. Lasix was dc'ed. PT sessions were completed every day and patient's strength and mobility improved, he was able to take steps with walker with arm/platform support. manager environmental services consulted for a walker with arm rest, He was started on his home medication sertraline and trazodone. Gabapentin increased to 600 mg TID. Baclofen added HS. 02/21-site of trach insertion has closed well, appropriate scar, no discharge or erythema noted, no air leak is seen or noted on examination. Home health and nursing facility could not be arranged per outreach and education social worker given out of network insurance. He was extensively counseled on the factors that triggered his condition including pain medications and opiates. Patient was strongly advised to avoid narcotic pain medications. Patient agreed to be discharged home. PATIENT SCHEDULED HIS OWN FOLLOW UP APPOINTMENT WITH PRIMARY MITCH RUIZ MD [phone] FOR 02/22 AT 10:30AM AT [address] [place] [address]. Home meds were renewed and new meds were prescribed. time spent in discharge was 53 mins Operations or Procedures DATE OF SURGERY: 01/06/2025 The patient had a tracheostomy established 24 hours ago. During trach wound care, the structural engineering technician incidentally transected the tracheostomy cuff. The patient was taken to the operating room. He was intubated by Dr. Lewis. While intubated, the old tracheostomy tube was removed and a new 3.5 diameter tracheostomy tube was inserted. There was immediate recapture of CO2 and return of normal ventilation at the time of insertion of the tracheostomy tube, which was then secured with insufflation of the cuff and 2 Prolene sutures as well as the circumferential umbilical tape. The patient remained in unchanged clinical condition at the termination of procedure, left the operating room following an accurate needle and sponge counts. Chest x-ray is ordered, pending at this time. Zane Krishna MD PF/SHELLEY DATE OF SURGERY: 01/05/2025 PREOPERATIVE DIAGNOSES: Persistent abdominal sepsis, ventilator dependent respiratory failure. SURGEON: Zane Krishna MD STRATEGY CONSULTANT: Duglas Patrick NP ANESTHESIA: General endotracheal. ANESTHESIOLOGIST: Andre Terrazas, nurse incendiaries supervisor. PROCEDURES: Exploratory laparotomy, extensive lysis of adhesions, transverse colostomy and mucous fistula, abdominal lavage, evacuation of abdominal abscesses, repair of sigmoid defect. DESCRIPTION OF PROCEDURE: Under general endotracheal anesthesia with the patient's skin prepped and draped, the abdomen was entered through a midline incision through preexisting scar. The abdomen was so-called impenetrable abdomen with adhesions between the loops of the bowel, anterior abdominal wall, liver. The colon was completely encased with adhesions. The small bowel was totally encased with adhesions. The abdomen was like someone poured superglue into the small bowels and the colon. It was a meticulous effort to mobilize the bowel sufficiently to be able to examine it without causing any injury to the bowel loops. Eventually, the bowel was sufficiently mobilized as to find an area in the sigmoid colon which was on compression leaking stool. This was closed using 2-0 Monocryl suture to the extent that it no longer was allowing stool to escape. Numerous abdominal abscesses were encountered. They were cultured for cultures and sensitivities and evacuated. The colon had to be meticulously mobilized. Again, it was foreshortened and adherent to all surrounding structures. It was extremely difficult to mobilize the colon without injury to the colon, but we did succeed in mobilizing sufficient transverse colon to divide it with a MIGUELANGEL stapler and then create a defect in the right upper abdominal quadrant of the abdominal wall so as to mature a transverse colostomy. A mucous fistula was then created from the remaining transverse colon so as not to allow for a closed loop type situation with the transverse colon, descending colon, sigmoid colon remaining closed. The abdomen was profusely irrigated with 10 liters of antibiotic-containing solution, following which 2 new Jeanmarie Dooley drains were placed into the pelvis and into the upper abdomen and exteriorized separately secured with a 2-0 nylon suture. The abdominal wall was then closed using #1 double-stranded PDS suture and the wound left open packed with Betadine saturated Kerlix. Following closure of the abdomen, the stomas were matured using 2-0 Monocryl suture resulting in pink viable stomas remaining in the exterior, which were then covered with stoma bags. Following termination of the patient's abdominal procedure and evacuation of the infected material, the patient was re-draped, re-prepped. The surgeons were re-scrubbed. The scrub techs were re-scrubbed. New instrumentation was obtained. New gowns and gloves were donned and a tracheostomy was then performed with the patient's anterior cervical skin incised. The incision deepened with electrocautery. The incision down onto the tissues anterior to the trachea were divided with electrocautery. At this point, the patient was ventilated by room air so as to minimize the likelihood of an airway fire. The trachea was entered through the fourth ring. A tracheotomy was fashioned and was dilated to allow a 7.5 tracheostomy tube to be inserted. The tracheostomy tube was then placed as the endotracheal tube was being withdrawn. Reaching the final position, the tracheostomy was reported to capture CO2 immediately and return to normal exchange of gases and ventilation. The tracheostomy tube was insufflated with a 7 mL air into the balloon, further secured with 2-0 Prolene sutures and a circumferential umbilical tape. The patient remained relatively unchanged at the termination of the procedure and left the operating room following an accurate needle and sponge counts. Chest x-ray was ordered. It was pending at the time of this dictation. The patient's mother was thoroughly informed between the change of the procedures. She was informed in person about the abdominal findings and the procedure in the abdomen and then subsequently she was no longer present in the waiting room and was informed by phone upon termination of the tracheostomy at [phone]. MD REGINA Mir/JAYCE TID: [id number] RECEIPT: [id number] PREOPERATIVE DIAGNOSES: Ascites, suspected colon perforation. POSTOPERATIVE DIAGNOSES: Intraabdominal sepsis, bowel obstruction. SURGEON: Zane Krishna MD STRATEGY CONSULTANT: Duglas Patrick. ANESTHESIA: General endotracheal. ANESTHESIOLOGIST: Dr. Lewis. PROCEDURES: Exploratory laparotomy, lysis of adhesions and removal of intraperitoneal fibrinous adhesions covering the entire peritoneal cavity. DESCRIPTION OF PROCEDURE: Under general endotracheal anesthesia, with the patient's skin prepped and draped, a vertical incision was made into his abdomen and I entered the peritoneal cavity, which immediately released 2 liters of purulent material. This material did not have a bad odor and did not have any food particles or evidence of feculent contamination. The abdomen was entirely congealed with fibrinous adhesions and fibrous adhesions. The entire surface of the small bowel, colon, liver, and stomach was covered with a thick fibrinous exudate with evidence of infection. It took approximately 1 hour to just mobilize the bowel and strip the exudate from the gregory of the intestine in order to be able to inspect the intestine for perforation, none of which was encountered. The colon appeared nonischemic, nondilated. There was evidence of possible perforation material, which appeared to possibly be a fecalith, was removed; however, I was never able to discover the appendix as the colon was densely scarred into the posterior aspect of the right lower quadrant. There was an inherent danger in attempting too vigorous mobilization of the bowel, which was completely scarred into the peritoneal cavity. The mesentery of the small bowel was markedly foreshortened, which made mobilization extremely difficult. Eventually, we were able to inspect the small bowel in its entirety and found no evidence of perforation. There was no evidence of perforation in the stomach. No evidence of perforation in the colon that was evident; however, the colon was completely covered with the patient's fat, which was inflamed and there was evidence of saponification of the fat. For this reason, in order to avoid injury to the bowel, we terminated the procedure after thorough inspection of the visible surfaces. The abdomen was irrigated with 10 liters of warm saline and then 4 Jeanmarie-Dooley drains were inserted, 1 into each quadrant of the abdominal cavity, exteriorized separately and secured with 2-0 nylon suture. The fascia was closed in the midline with #1 double-stranded PDS suture and the subcutaneous tissues were irrigated and then skin sutures were pre-placed in order for them to be ligated in near future after assurance of the wound healing without an infection. Culture and sensitivities were submitted during the procedure. The wound was then covered with Betadine-saturated gauze. MD REGINA Mir/KRISTEN TID: [id number] RECEIPT: [id number] Operative Report DATE OF OPERATION: 12/26/24 PROCEDURE: Flexible sigmoidoscopy with decompression PREOPERATIVE INDICATION: The patient is a 44 -year-old male undergoing for colonic decompression with history of abdominal pain obstipation and ileus POSTOPERATIVE DIAGNOSES: 1. Patient had residual stool which was aspirated in the rectosigmoid 2. In the proximal sigmoid or at the junction of the sigmoid and descending colon there appeared to be an ischemic area and there was an area of a large fluid collection and 6 L of greenish brown liquid which was aspirated along with some stool. There is a possibility that the patient may have a previous area of spontaneous perforation and this fluid may have been aspirated possibly from the peritoneal cavity. The colonoscope was not advanced beyond this area PROCEDURE PERFORMED BY: Mao Coleman M.D. SCOPE: Olympus videocolonoscope. ASA CLASS: 3. PREOPERATIVE MEDICATIONS: Patient was previously intubated sedated PROCEDURE IN DETAIL: After obtaining an informed consent, the patient was placed on left lateral decubitus position. He was then sedated with the above medications. A rectal examination was performed that was normal. The colonoscope was then passed through the anus into the rectosigmoid . There was some liquid stool in the rectosigmoid that was aspirated easily At about 35 cm above the anal verge the scope entered an abnormal possibly i schemic area and there was a large fluid collection. I aspirated about 6 L of grayish greenish liquid fluid mixed with stool There was concern that there may have been a previous area of spontaneous rupture and the fluid that was aspirating was coming from the peritoneal cavity The colonoscope was not advanced beyond this area as it was not deemed safe.The colonoscope was then withdrawn. The patient tolerated the procedure well without difficulty. WITHDRAWAL TIME: Not applicable QUALITY OF THE PREP: [place] Bowel Prep score: Not applicable COMPLICATIONS : None SPECIMENS: None DISPOSITION: Continue to monitor in ICU Hemodynamically stable PLAN: 1. Keep NPO, IV fluid hydration 2. NG tube to low intermittent suction ; IV Abx 3. Surgical consult as the patient is likely going to need a exploratory laparotomy 4. Discussed with hospitalist team and with surgical consult MAO COLEMAN MD Condition at Discharge: Stable Final Diagnosis/Problems List Intractable pain secondary to Intra-abdominal sepsis with VRE and peritonitis status post exploratory laparotomy x2 01/05 and 12/27 Status post bowel resection and colostomy Intra-abdominal abscess Septic shock likely due to intra-abdominal sepsis Intra-abdominal sepsis with VRE Splenic fluid collection Acute metabolic encephalopathy likely due to in-hospital delirium Acute hypoxic respiratory failure status post intubation status post tracheostomy 01/05 decannulation 02/20 Likely acute respiratory distress syndrome-non cardiogenic pulmonary edema-resolving Right upper extremity DVT 01/09 Anemia likely normocytic status post 3 packed RBC transfusion Sinus tachycardia Pleural effusion status post thoracocentesis Night terrors Hypoalbuminemia Moderate to severe protein calorie malnutrition Left upper extremity superficial thrombosis Thrombocytosis Chronic open dependence Neuropathic Pain Vitamin-D deficiency History of epilepsy History of epilepsy Discharge Disposition: Home Discharge Instruct/Medications Diet: See Comment Diet comment: mechanical soft diet Activity: Light activity Follow Up/Referral: Follow up with the primary care physician within 7 days Medications: Discontinue oxycodone Continue eliquis 5mg twice daily Tab propranolol 20mg twice daily Scheduled Apixaban Base (Eliquis), 5 MG PO BID Cyclobenzaprine Hcl (Cyclobenzaprine Hcl), 1 TAB PO QHSP Divalproex Sodium (Divalproex Sodium Dr), 1 TAB PO BID, (Reported) Docusate Sodium (Colace), 1 CAP PO TID, (Reported) Ergocalciferol (Vitamin D 69517 Unit), 50,000 UNIT PO Q7D Gabapentin (Gabapentin), 1 TAB PO TID, (Reported) Levetiracetam (Keppra), 500 MG PO BID Nutritional Supplements (Ensure Clear), 240 ML PO TIDWM Pantoprazole Sodium Sesquihydr (Pantoprazole Sodium), 40 MG PO DAILY Propranolol HCl (Propranolol Hydrochloride), 20 MG PO BID Sertraline Hcl (Sertraline Hcl), 50 MG PO DAILY Trazodone Hcl (Trazodone Hcl), 50 MG PO HS Scheduled PRN Alprazolam (Xanax), 1 TAB PO TID PRN for ANXIETY, (Reported) Discontinued Medications Oxycodone Hcl (Oxycodone Hcl), 15 MG PO, (Reported) Discharge Statement: "Patient was advised to return to the ER or call 911 if any headaches, dizziness, shortness of breath, chest pain, abdominal pain, bleeding, fevers, or worsening of medical condition. Patient was counseled about treatment plan, medications, possible side effects, patientverbalized understanding. All questions were answered to the best of my ability. This discharge took greater then 30 minutes in planning, reviewing documentation, counseling the patient, and discussing with other team members." ASSESSMENT ASSESSMENT Assessment Acute hypoxic respiratory failure status post intubation status post tracheostomy 01/05 decannulation 02/20 Intractable pain secondary to Intra-abdominal sepsis with VRE and peritonitis status post exploratory laparotomy x2 01/05 and 12/27 Status post bowel resection and colostomy Date of Service: Feb 21, 2025 Billing Provider: MARIELA PÉREZ MD Common Visit Codes: 57119-PDT/OBS DISCH DAY >30min VALERIE HESTER Feb 21, 2025 18:05 MARIELA PÉREZ MD Feb 23, 2025 15:45
[2025-02-22] MEDS ORDERED: TRAZ-227 PO (10:51)
[2025-02-22] MEDS ORDERED: LEVE500T40 PO (10:51)
[2025-02-22] MEDS ORDERED: SERT-206 PO (10:51)
== END 2025-02-21 20:40 | disposition home or self-care (01) | DRG 4 ==
LOC: EDBD 11:32 → ER 11:32 → OVERFLOW 17:43 → ICU WEST 12-18 01:10
PROVIDERS: ADMIT Internal Medicine; ATTEND Surgery
PROC: 5A1955Z Respiratory Ventilation, Greater than 96 Consecutive Hours (ICD-10-PCS; principal; 2024-12-17)
PROC: 0BH18EZ Insertion of Endotracheal Airway into Trachea, Via Natural or Artificial Opening Endoscopic (ICD-10-PCS; 2024-12-17)
PROC: 02HV33Z Insertion of Infusion Device into Superior Vena Cava, Percutaneous Approach (ICD-10-PCS; 2024-12-17)
PROC: 05HC33Z Insertion of Infusion Device into Left Basilic Vein, Percutaneous Approach (ICD-10-PCS; 2024-12-22)
PROC: B54NZZA Ultrasonography of Left Upper Extremity Veins, Guidance (ICD-10-PCS; 2024-12-22)
PROC: 0D9N8ZZ Drainage of Sigmoid Colon, Via Natural or Artificial Opening Endoscopic (ICD-10-PCS; 2024-12-26)
PROC: 0DNW0ZZ Release Peritoneum, Open Approach (ICD-10-PCS; 2024-12-27)
PROC: 02HV33Z Insertion of Infusion Device into Superior Vena Cava, Percutaneous Approach (ICD-10-PCS; 2024-12-27)
PROC: B548ZZA Ultrasonography of Superior Vena Cava, Guidance (ICD-10-PCS; 2024-12-27)
PROC: 0W9G30Z Drainage of Peritoneal Cavity with Drainage Device, Percutaneous Approach (ICD-10-PCS; 2025-01-01)
PROC: 0W9B3ZX Drainage of Left Pleural Cavity, Percutaneous Approach, Diagnostic (ICD-10-PCS; 2025-01-01)
PROC: 0B110F4 Bypass Trachea to Cutaneous with Tracheostomy Device, Open Approach (ICD-10-PCS; 2025-01-05)
PROC: 0D1L0Z4 Bypass Transverse Colon to Cutaneous, Open Approach (ICD-10-PCS; 2025-01-05)
PROC: 0DNW0ZZ Release Peritoneum, Open Approach (ICD-10-PCS; 2025-01-05)
PROC: 0WCG0ZZ Extirpation of Matter from Peritoneal Cavity, Open Approach (ICD-10-PCS; 2025-01-05)
PROC: 0BP1XFZ Removal of Tracheostomy Device from Trachea, External Approach (ICD-10-PCS; 2025-01-06)
PROC: 30233N1 Transfusion of Nonautologous Red Blood Cells into Peripheral Vein, Percutaneous Approach (ICD-10-PCS; 2025-01-07)
PROC: 06HY33Z Insertion of Infusion Device into Lower Vein, Percutaneous Approach (ICD-10-PCS; 2025-01-28)
PROC: 5A1935Z Respiratory Ventilation, Less than 24 Consecutive Hours (ICD-10-PCS; 2025-02-10)
PROC: 5A1935Z Respiratory Ventilation, Less than 24 Consecutive Hours (ICD-10-PCS; 2025-02-11)
DX: A41.81 Sepsis due to Enterococcus (principal); R65.21 Severe sepsis with septic shock; K63.1 Perforation of intestine (nontraumatic); K65.0 Generalized (acute) peritonitis; G72.81 Critical illness myopathy; J81.1 Chronic pulmonary edema; K65.1 Peritoneal abscess; E43 Unspecified severe protein-calorie malnutrition; K56.50 Intestinal adhesions [bands], unspecified as to partial versus complete obstruction; J15.69 Pneumonia due to other Gram-negative bacteria; G82.50 Quadriplegia, unspecified; G92.8 Other toxic encephalopathy; I82.621 Acute embolism and thrombosis of deep veins of right upper extremity; I82.C11 Acute embolism and thrombosis of right internal jugular vein; I82.A12 Acute embolism and thrombosis of left axillary vein; G93.1 Anoxic brain damage, not elsewhere classified; J15.9 Unspecified bacterial pneumonia; R18.8 Other ascites; J90 Pleural effusion, not elsewhere classified; D63.8 Anemia in other chronic diseases classified elsewhere; K56.7 Ileus, unspecified; F05 Delirium due to known physiological condition; E88.09 Other disorders of plasma-protein metabolism, not elsewhere classified; E87.4 Mixed disorder of acid-base balance; J80 Acute respiratory distress syndrome; E87.8 Other disorders of electrolyte and fluid balance, not elsewhere classified; I10 Essential (primary) hypertension; G40.909 Epilepsy, unspecified, not intractable, without status epilepticus; E87.6 Hypokalemia; F51.4 Sleep terrors [night terrors]; J95.03 Malfunction of tracheostomy stoma; F41.9 Anxiety disorder, unspecified; K52.9 Noninfective gastroenteritis and colitis, unspecified; M10.9 Gout, unspecified; N39.0 Urinary tract infection, site not specified; K59.00 Constipation, unspecified; K31.84 Gastroparesis; E87.70 Fluid overload, unspecified; J98.01 Acute bronchospasm; Z16.21 Resistance to vancomycin; K08.89 Other specified disorders of teeth and supporting structures; J98.11 Atelectasis; D75.839 Thrombocytosis, unspecified; E55.9 Vitamin D deficiency, unspecified; K63.89 Other specified diseases of intestine; G89.4 Chronic pain syndrome; Z68.25 Body mass index [BMI] 25.0-25.9, adult; Z99.3 Dependence on wheelchair; Z99.11 Dependence on respirator [ventilator] status; Z90.49 Acquired absence of other specified parts of digestive tract; Z79.899 Other long term (current) drug therapy; Z82.5 Family history of asthma and other chronic lower respiratory diseases; Z79.01 Long term (current) use of anticoagulants; Y83.8 Other surgical procedures as the cause of abnormal reaction of the patient, or of later complication, without mention of misadventure at the time of the procedure
CPT/HCPCS: 31500; 36415; 36556; 36569; 36600; 70450; 71045; 71260; 74018; 74176; 74177; 74178; 74250; 74270; 76705; 76937; 76942; 80048; 80053; 80061; 80074; 80164; 80202; 80307; 81001; 82140; 82306; 82550; 82565; 82607; 82728; 82805; 82962; 83036; 83540; 83550; 83605; 83690; 83735; 83986; 84100; 84132; 84443; 84478; 84484; 84550; 85007; 85014; 85018; 85025; 85027; 85045; 85610; 85730; 86141; 86703; 86704; 86706; 86708; 86803; 86850; 86900; 86901; 86920; 87040; 87070; 87075; 87077; 87081; 87086; 87186; 87205; 87340; 89051; 92610; 93005; 93306; 93970; 93971; 94002; 94003; 94640; 95819; 96361; 96374; 96375; 97110; 97116; 97163; 97530; 99291; A4565; A4605; C1729; G0378; J0131; J0690; J1335; J1450; J1815; J1885; J1956; J2003; J2185; J2212; J2248; J2250; J2405; J2470; J2543; J2704; J3480; J3490; J7060; J7131

== ENCOUNTER 2025-02-25 00:27 | Inpatient (IN) | payer MEDICAID ==
[~2025-02-25] VITALS: Ht 175.3 cm; Wt 70.0 kg
[~2025-02-25 00:27] MED LIST changes: +ALPR0.5T PO; +APIX5TAB PO; +DOCU-94 PO; +ERGO1CAP23 PO; +GABA-339 PO; +LEVE500T40 PO; +NUTR-1045 PO; +PANT40T PO; +PROP1TAB53 PO; +SERT-206 PO; +TRAZ-227 PO
--- NOTE | 2025-02-25 01:56 | ED.PDOC ---
History of Present Illness HPI Comments This is a 44-year-old male present friend for chief complaint of mild diffuse abdominal pain, nausea, hot flashes, and cold sweats. Patient endorses on one day history of symptoms falling recent hospital discharge. He comments on recurrent history of frequent GI issues. So reports on his colostomy bag ex ploded earlier today. No further acute symptoms, such as vomiting, is reported at this time. Chief Complaint: Abdominal Pain Time Seen by MD: 01:00 Primary Care Provider: MARIBELL Reviewed Notes: Nurses Notes, Medications, Allergies Allergies: Coded Allergies: Aspirin (Verified Allergy, Unknown, 02/25/25) Home Meds Active Scripts Sertraline Hcl (Sertraline Hcl) 50 Mg Tab, 50 MG PO DAILY for 30 Days, #30 MG [facility]/22/25 Levetiracetam (Keppra) 500 Mg Tab, 500 MG PO BID for 30 Days, #30 MG [facility] 02/22/25 Trazodone Hcl (Trazodone Hcl) 50 Mg Tab, 50 MG PO HS for 30 Days, #30 MG [facility] 02/22/25 Propranolol HCl (Propranolol Hydrochloride) 20 Mg Tab, 20 MG PO BID for 30 Days, #60 TAB [facility] 02/21/25 Pantoprazole Sodium Sesquihydr (Pantoprazole Sodium) 40 Mg Tab, 40 MG PO DAILY for 30 Days, #30 TAB [facility] 02/21/25 Nutritional Supplements (ENSURE CLEAR) Bbry/Pom Liq, 240 ML PO TIDWM for 30 Days, #90 LIQ [facility] 02/21/25 Ergocalciferol (VITAMIN D 20549 UNIT) 50,000 [place], [address] UNIT PO Q7D for 30 Days, #6 CAP [facility] 02/21/25 Apixaban Base (ELIQUIS) 5 Mg Tab, 5 MG PO BID for 90 Days, #180 TAB [facility] 02/21/25 Cyclobenzaprine Hcl (Cyclobenzaprine Hcl) 5 Mg Tab, 1 TAB PO QHSP, #14 TAB 0 Refills Prov:HARRY QUIROZ 08/16/23 Reported Medications Alprazolam (Xanax) 0.5 Mg Tb, 1 TAB PO TID PRN for ANXIETY, #90 TAB 12/18/24 Gabapentin (Gabapentin) 600 Mg Tab, 1 TAB PO TID, #90 TAB 2 Refills 12/18/24 Docusate Sodium (Colace) 100 Mg Cap, 1 CAP PO TID, #30 CAP 12/18/24 Divalproex Sodium (Divalproex Sodium Dr) 250 Mg Tab, 1 TAB PO BID 02/26/23 Discontinued Reported Medications Oxycodone Hcl (OXYCODONE HCL) 5 Mg Tb, 15 MG PO, TAB 12/18/24 Information Source: Patient Mode of Arrival: Ambulatory Past Medical History PAST MEDICAL HISTORY: Anemia (Normocytic), Gout, Seizures (Epilepsy) Past Medical History (Other): Chronic pain syndrome Sepsis with VRE and peritonitis status post exploratory laparotomy Acute metabolic encephalopathy Acute hypoxic respiratory failure Surgical History (Other): Colostomy bag Intubation/extubation Tracheostomy and decannulation Family History Family History: Unknown Social History Smoker: Non-Smoker Alcohol: Occasionally Drugs: Marijuana Lives In: Home All Other Systems: Reviewed and Negative (Comprehensive review of systems are negative unless otherwise stated in HPI) Physical Exam General Appearance: Moderate Distress, Normal HEENT: Normal ENT Inspection, Pharynx Normal, TMs Normal Neck: Full Range of Motion, Non-Tender, Normal, Normal Inspection Respiratory: Chest Non-Tender, Lungs Clear, No Accessory Muscle Use, No Respiratory Distress, Normal Breath Sounds Cardiovascular: No Edema, No JVD, No Murmur, No Gallop, Normal Peripheral Pulses, Regular Rate/Rhythm Breast Exam: Deferred Gastrointestinal: Diffuse (Tenderness), No Organomegaly, No Pulsatile Mass, Normal Bowel Sounds, Soft, Tenderness (Diffused tenderness), Other (Colostomy bag with surgical scars to abdomen) Genitalia: Deferred Pelvic: Deferred Rectal: Deferred Extremities: No calf tenderness, Normal capillary refill, Normal inspection, Normal range of motion, Non-tender, No pedal edema Musculoskeletal : Apperance: Normal Neurologic: Alert, cigar machine feeder II-XII nml as Tested, No Motor Deficits, Normal Affect, Normal Mood, No Sensory Deficits Cerebellar Function: Normal Reflexes: Normal Skin: Dry, Normal Color, Warm Lymphatic: No Adenopathy Was a procedure done? Was a procedure done?: No Differential Dx Considerations may include: Postop complication, complication with colostomy, gastritis, gastroenteritis, viral syndrome X-Ray, Labs, Meds, VS Vital Signs Date Time Temp Pulse Resp B/P (MAP) Pulse Ox O2 Delivery O2 Flow Rate FiO2 02/25/25 05:06 112 18 108/67 02/25/25 03:05 112 16 95 Room Air 02/25/25 03:05 98.4 112 16 108/69 (82) 95 98.4 02/25/25 00:29 98.9 115 18 120/73 97 98.9 Lab Test 02/25/25 01:28 Range/Units White Blood Count 14.3 #H 4.4-10.8 10^3/uL Red Blood Count 3.91 L 4.5-5.90 10^6/uL Hemoglobin 11.0 #L 13.5-17.5 g/dL Hematocrit 33.0 #L 41.0-53.0 % Mean Corpuscular Volume 84.2 80.0-100.0 fL Mean Corpuscular Hemoglobin 28.2 28.0-32.0 pg Mean Corpuscular Hemoglobin Concent 33.5 32.0-36.0 g/dL Red Cell Distribution Width 19.9 H 11.8-14.3 % Platelet Count 449 140-450 10^3/uL Mean Platelet Volume 6.3 L 6.9-10.8 fL Neutrophils (%) (Auto) 83.3 H 37.0-80.0 % Lymphocytes (%) (Auto) 7.6 L 10.0-50.0 % Monocytes (%) (Auto) 7.2 0.0-12.0 % Eosinophils (%) (Auto) 1.0 0.0-7.0 % Basophils (%) (Auto) 0.9 0.0-2.0 % Neutrophils # (Auto) 11.9 H 1.6-8.6 10 ^3/uL Lymphocytes # (Auto) 1.1 0.4-5.4 10 ^3/uL Monocytes # (Auto) 1.0 0-1.3 10 ^3/uL Eosinophils # (Auto) 0.1 0-0.8 10 ^3/uL Basophils # (Auto) 0.1 0-0.2 10 ^3/uL Nucleated Red Blood Cells 0.0 % Sodium Level 135 L 136-145 mmol/L Potassium Level 4.0 3.5-5.1 mmol/L Chloride Level 101 98-107 mmol/L Carbon Dioxide Level 24 20-31 mmol/L Anion Gap 10 5-15 Blood Urea Nitrogen 13 9-23 mg/dL Creatinine 0.71 0.700-1.30 mg/dL Glomerular Filtration Rate Calc 117 >90 mL/min BUN/Creatinine Ratio 18.3 10.0-20.0 Serum Glucose 102 74-106 mg/dL Calcium Level 9.7 8.7-10.4 mg/dL Total Bilirubin 0.5 0.2-1.0 mg/dL Aspartate Amino Transferase (AST) 10 L 13-40 U/L Alanine Aminotransferase (ALT) 13 7-40 U/L Alkaline Phosphatase 80 46-116 U/L Total Protein 7.9 5.7-8.2 g/dL Albumin 4.6 3.2-4.8 g/dL Lipase 30 12-53 U/L Current Medications Medications (Trade) Dose Ordered Sig/Sherron Route Start Time Stop Time Status Last Admin Ondansetron HCl (Zofran) 4 mg ONCE ONCE IV 02/25/25 01:15 02/25/25 01:16 DC 02/25/25 05:10 Sodium Chloride 1,000 ml @ 1,000 mls/hr Q1H ONCE IVB 02/25/25 01:15 02/25/25 02:14 DC 02/25/25 03:07 Morphine Sulfate 4 mg ONCE ONCE IV 02/25/25 01:15 02/25/25 01:16 DC 02/25/25 05:06 Time of 1ST Reevaluation: 01:30 Reevaluation 1ST: Unchanged Patient Education/Counseling: Diagnosis, Treatment, Other (Need for admission) Family Education/Counseling: Diagnosis, Treatment, Other (Need for admission) SEPSIS Sepsis Screen Date sepsis recognized/suspect: Feb 25, 2025 Time Sepsis recognized/suspect: 0029 Recent Procedure: No On Antibiotic Therapy: No Respiratory Rate >20: No Heart Rate >90: Yes Temp<36 C (96.8 F) or >38.3 C: No SBP <90 or MAP <65 mmHG: No New Acute Mental Status Change: No Is the patient on CPAP, BIPAP,: No Physician Orders Urinalysis (02/25/25 01:01) Ct Ab Pel With Iv Con Only (02/25/25 01:01) Vital Signs Date Time Temp Pulse Resp B/P (MAP) Pulse Ox O2 Delivery O2 Flow Rate FiO2 02/25/25 05:06 112 18 108/67 02/25/25 03:05 112 16 95 Room Air 02/25/25 03:05 98.4 112 16 108/69 (82) 95 98.4 02/25/25 00:29 98.9 115 18 120/73 97 98.9 Laboratory Tests Test 02/25/25 01:28 White Blood Count 14.3 10^3/uL (4.4-10.8) #H Medications Medications Dose Ordered Sig/Sherron Route Start Time Stop Time Status Last Admin Dose Admin Morphine Sulfate 4 mg ONCE ONCE IV 02/25/25 01:15 02/25/25 01:16 DC 02/25/25 05:06 Ondansetron HCl 4 mg ONCE ONCE IV 02/25/25 01:15 02/25/25 01:16 DC 02/25/25 05:10 Sodium Chloride 1,000 ml @ 1,000 mls/hr Q1H ONCE IVB 02/25/25 01:15 02/25/25 02:14 DC 02/25/25 03:07 Departure 1 Departure Time of Disposition: 05:56 Impression: Primary Impression: Intractable abdominal pain Additional Impressions: Dehydration Malnutrition compromising bodily function Disposition: ADMITTED INPATIENT Condition: Guarded Discharged With: Self Comments 44-year-old patient with history of extensive abdominal surgeries and colostomy bag now presents with intractable abdominal pain. I suspect some dehydration and protein calorie malnutrition. Patient will need to be admitted for supportive care and further workup. Critical Care Note Critical Care Time?: No Stability Stability form required: No Heart Score Heart Score: Heart Score Response (Comments) Value History N/A 0 EKG N/A 0 Age N/A 0 Risk Factors N/A 0 Troponin N/A 0 Total 0 I personally scribed for SHANA COSTELLO MD ([email or web address]) on 02/25/25 at 01:56. Electronically submitted by Melchor Abbasi [email or web address]). SHANA COSTELLO MD Feb 25, 2025 01:56
[2025-02-25 02:03] LABS: Hematocrit 33.0 % (41.0-53.0); Hemoglobin 11.0 g/dL (13.5-17.5); Mean Corpuscular Hemoglobin 28.2 pg (28.0-32.0); Mean Corpuscular Volume 84.2 fL (80.0-100.0); Nucleated Red Blood Cells % 0.0 %
[2025-02-25 02:17] LABS: Alanine Aminotransferase 13 U/L (7-40); Albumin 4.6 g/dL (3.2-4.8); Alkaline Phosphatase 80 U/L (46-116); Anion Gap 10 (5-15); BUN/Creatinine Ratio 18.3 (10.0-20.0); Bilirubin, Total 0.5 mg/dL (0.2-1.0); Blood Urea Nitrogen 13 mg/dL (9-23); Calcium 9.7 mg/dL (8.7-10.4); Carbon Dioxide 24 mmol/L (20-31); Chloride 101 mmol/L (98-107); Glucose 102 mg/dL (74-106); Lipase 30 U/L (12-53); Potassium 4.0 mmol/L (3.5-5.1); Total Protein 7.9 g/dL (5.7-8.2)
[2025-02-25 02:18] LABS: Sodium 135 mmol/L (136-145)
[2025-02-25] MEDS: SODIUM CHLORIDE 0.9% 1,000 ML IVB ONE (03:07)
[2025-02-25] MEDS: IOHEXOL 300 MG/ML 100ML BOTTLE IJ ONE (03:42)
[2025-02-25] MEDS: MORPHINE SULFATE 4 MG/ML SYR/VIAL IV ONE (05:06)
[2025-02-25] MEDS: ONDANSETRON HCL 4 MG/2 ML VIAL IV ONE (05:10)
[2025-02-25] MEDS ORDERED: ONDANSETRON HCL 4 MG/2 ML VIAL IV PRN ×2 (08:00→08:15)
[2025-02-25] MEDS ORDERED: ACETAMINOPHEN 325 MG TAB PO PRN (08:00)
[2025-02-25] MEDS ORDERED: DOCUSATE SOD 100 MG CAP PO PRN ×2 (08:00→08:15)
[2025-02-25] MEDS ORDERED: NITROGLYCERIN 0.4 MG SL TAB SL PRN ×2 (08:00→08:15)
[2025-02-25] MEDS ORDERED: MORPHINE SULFATE INJ 2 MG/ml SYRG IV PRN ×2 (08:00→08:15)
--- NOTE | 2025-02-25 08:51 | DVH ---
Exam: CT CT AB PEL WITH IV CON ONLY History: abd pain Comparison Study: CT CT AB PEL WITH IV CON ONLY on DOS: 01/25/25 Technique: Multidetector spiral CT of the abdomen was performed from lung bases to pubic symphysis. A xial imaging was performed with intravenous contrast following the uneventful administration of 100 m l Omnipaque 300. Coronal and sagittal multiplanar reformats were obtained from the axial data set by the technologist. Radiation Dose : 1. Abdomen/Pelvis: CTDIvol 11.76 mGy, DLP 710.07 mGy*cm. Findings: Lung Bases: Right lower lobe opacities, overall decreased since the prior CT from 01/25/2025. Visuali zed portions of the heart and pericardium are unremarkable. Liver: The liver is normal in size. No focal lesions. Gallbladder and Biliary Tree: The gallbladder is unremarkable. No intrahepatic or extrahepatic biliar y ductal dilatation. Spleen: Unremarkable Pancreas: The pancreas enhances normally and there are no focal lesions. The main pancreatic duct is not dilated Adrenal Glands: Unremarkable Kidneys: Kidneys enhance symmetrically. No calculi or hydronephrosis. GI tract: The stomach is grossly normal in appearance. No small bowel mucosal thickening or bowel obs truction. Collapsed small bowel loops in the right lower quadrant limits evaluation. There is mucosal thickening in the cecum ascending and transverse colon. There is a right upper quadrant colostomy. N o findings to suggest acute appendicitis. Peritoneum/mesentery/retroperitoneum. No evidence of free intraperitoneal air. No ascites. No evidenc e of suspicious lymphadenopathy. Abdominal Wall: Unremarkable. Vasculature: Abdominal aorta and main branches are unremarkable. Normal vascular enhancement. Urinary Bladder: Grossly unremarkable for degree of distention. Pelvic Organs: Unremarkable Musculoskeletal: No aggressive focal bony lesions, acute fractures or dislocation. Chronic appearing compression deformities of the T11 through L1 vertebral bodies. IMPRESSION: 1. Mucosal thickening of the cecum, ascending and transverse colon. Findings are suggestive of colit is. 2. Improving right lower lobe opacities. 3. Right upper quadrant colostomy without bowel obstruction.
--- NOTE | 2025-02-25 09:43 | DVHHP2 ---
History of Present Illness Reason for Visit: Abdominal pain History of Present Illness Xander Monge is a 44-year-old male with a recent admission from December 17- February 21 2025. During that admission he was intubated, had a trach, underwent multiple abdominal surgeries leaving him with a colostomy, had abdominal abscess with VRE, DVT in his right upper extremity, left upper extremity superficial vein thrombosis, trach was weaned down then decannulated 02/20/2025, and he had a wound vac to abdominal surgical site that was removed prior to discharge. he came to the hospital today due to abdominal pain, nausea, and migraine. Patient states his symptoms began a couple days and have continued to worsen prompting him to come to the hospital. He is concerned about the migraine due to history of blood clots. GI: Constipation, Other (colostomy) Musculoskeletal: Other (Chronic pain ) Rheumatologic: Gout Past Surgical History: Hernia Repair, Other (left leg, bowel resection 01/05/2025) Smoke: No ALCOHOL: none Drugs: None Lives: with Family Domestic Violence: Neg Review of Systems Constitutional: Yes: Chills, Weakness, Malaise, Other (Migrain); No: Fever, S weats Eyes: No: Pain, Vision change, Conjunctivae inflammation, Eyelid inflammation, Other, Redness ENT: No: Ear pain, Ear discharge, Nose pain, Nose discharge, Nose congestion, Mouth pain, Mouth swelling, Throat pain, Throat swelling, Other Respiratory: No: Cough, Dry, Shortness of breath, SOB with excertion, Wheezing, Hemoptysis, Pleuritic Pain, Sputum, Wheezing, Other Cardiovascular: No: Chest Pain, Palpitations, Orthopnea, Paroxysmal Noc. Dyspnea, Edema, Lt Headedness, Other Gastrointestinal: Nausea, Abdominal Pain; No: Vomiting, Diarrhea, Constipation, Melena, Hematochezia, Other Genitourinary: No Dysuria, No Frequency, No Incontinence, No Hematuria, No Retention, No Other Musculoskeletal: No: other, neck pain, shoulder pain, arm pain, back pain, hand pain, leg pain, foot pain Skin: No: Rash, Lesions, Jaundice, Bruising, Other Neurological: No: Weakness, Numbness, Incoordination, Change in speech, Confusion, Seizures, Other Allergies: Coded Allergies: Aspirin (Verified Allergy, Unknown, 02/25/25) Exam Vital Signs Vital Signs Date Time Temp Pulse Resp B/P (MAP) Pulse Ox O2 Delivery O2 Flow Rate FiO2 02/25/25 05:06 112 18 108/67 02/25/25 03:05 95 Room Air 02/25/25 03:05 98.4 98.4 General Appearance: Alert, Oriented X3, Cooperative, moderate distress HEENT: Atraumatic, PERRLA Respiratory: Clear to auscultation, Normal air movement Cardiovascular: Normal S1, Normal S2, Other (ST) Extremities: No clubbing, No cyanosis, No edema, Normal pulses Skin: No rashes, No breakdown Neuro: Normal speech Psych/Mental Status: Mental status NL, Mood NL Labs/Xrays Labs Test 02/25/25 01:28 Range/Units White Blood Count 14.3 #H 4.4-10.8 10^3/uL Red Blood Count 3.91 L 4.5-5.90 10^6/uL Hemoglobin 11.0 #L 13.5-17.5 g/dL Hematocrit 33.0 #L 41.0-53.0 % Mean Corpuscular Volume 84.2 80.0-100.0 fL Mean Corpuscular Hemoglobin 28.2 28.0-32.0 pg Mean Corpuscular Hemoglobin Concent 33.5 32.0-36.0 g/dL Red Cell Distribution Width 19.9 H 11.8-14.3 % Platelet Count 449 140-450 10^3/uL Mean Platelet Volume 6.3 L 6.9-10.8 fL Neutrophils (%) (Auto) 83.3 H 37.0-80.0 % Lymphocytes (%) (Auto) 7.6 L 10.0-50.0 % Monocytes (%) (Auto) 7.2 0.0-12.0 % Eosinophils (%) (Auto) 1.0 0.0-7.0 % Basophils (%) (Auto) 0.9 0.0-2.0 % Neutrophils # (Auto) 11.9 H 1.6-8.6 10 ^3/uL Lymphocytes # (Auto) 1.1 0.4-5.4 10 ^3/uL Monocytes # (Auto) 1.0 0-1.3 10 ^3/uL Eosinophils # (Auto) 0.1 0-0.8 10 ^3/uL Basophils # (Auto) 0.1 0-0.2 10 ^3/uL Nucleated Red Blood Cells 0.0 % Sodium Level 135 L 136-145 mmol/L Potassium Level 4.0 3.5-5.1 mmol/L Chloride Level 101 98-107 mmol/L Carbon Dioxide Level 24 20-31 mmol/L Anion Gap 10 5-15 Blood Urea Nitrogen 13 9-23 mg/dL Creatinine 0.71 0.700-1.30 mg/dL Glomerular Filtration Rate Calc 117 >90 mL/min BUN/Creatinine Ratio 18.3 10.0-20.0 Serum Glucose 102 74-106 mg/dL Calcium Level 9.7 8.7-10.4 mg/dL Total Bilirubin 0.5 0.2-1.0 mg/dL Aspartate Amino Transferase (AST) 10 L 13-40 U/L Alanine Aminotransferase (ALT) 13 7-40 U/L Alkaline Phosphatase 80 46-116 U/L Total Protein 7.9 5.7-8.2 g/dL Albumin 4.6 3.2-4.8 g/dL Lipase 30 12-53 U/L Exam: CT CT AB PEL WITH IV CON ONLY Findings: Lung Bases: Right lower lobe opacities, overall decreased since the prior CT from 01/25/2025. Visualized portions of the heart and pericardium are unremarkable. Liver: The liver is normal in size. No focal lesions. Gallbladder and Biliary Tree: The gallbladder is unremarkable. No intrahepatic or extrahepatic biliary ductal dilatation. Spleen: Unremarkable Pancreas: The pancreas enhances normally and there are no focal lesions. The main pancreatic duct is not dilated Adrenal Glands: Unremarkable Kidneys: Kidneys enhance symmetrically. No calculi or hydronephrosis. GI tract: The stomach is grossly normal in appearance. No small bowel mucosal thickening or bowel obstruction. Collapsed small bowel loops in the right lower quadrant limits evaluation. There is mucosal thickening in the cecum ascending and transverse colon. There is a right upper quadrant colostomy. No findings to suggest acute appendicitis. Peritoneum/mesentery/retroperitoneum. No evidence of free intraperitoneal air. No ascites. No evidence of suspicious lymphadenopathy. Abdominal Wall: Unremarkable. Vasculature: Abdominal aorta and main branches are unremarkable. Normal vascular enhancement. Urinary Bladder: Grossly unremarkable for degree of distention. Pelvic Organs: Unremarkable Musculoskeletal: No aggressive focal bony lesions, acute fractures or dislocation. Chronic appearing compression deformities of the T11 through L1 vertebral bodies. IMPRESSION: 1. Mucosal thickening of the cecum, ascending and transverse colon. Findings are suggestive of colitis. 2. Improving right lower lobe opacities. 3. Right upper quadrant colostomy without bowel obstruction. SEPSIS Sepsis Screen Date sepsis recognized/suspect: Feb 25, 2025 Time Sepsis recognized/suspect: 0029 Recent Procedure: No On Antibiotic Therapy: No Respiratory Rate >20: No Heart Rate >90: Yes Temp<36 C (96.8 F) or >38.3 C: No SBP <90 or MAP <65 mmHG: No New Acute Mental Status Change: No Is the patient on CPAP, BIPAP,: No Physician Orders Urinalysis (02/25/25 01:01) Ct Ab Pel With Iv Con Only (02/25/25 01:01) Admit (02/25/25 07:53) Code Status (02/25/25 07:53) Ondansetron Hcl (Zofran) (02/25/25 08:00) Docusate Sodium Capsule (Colace Capsule) (02/25/25 08:00) Complete Blood Count (02/26/25 04:00) Comprehensive Metabolic Panel (02/26/25 04:00) Npo (Nothing By Mouth) Diet (02/25/25 Breakfast) Pt Request For Service (02/25/25 07:53) Condition: Serious (02/25/25 07:53) Acetaminophen Tablet (Tylenol Tablet) (02/25/25 08:00) Nitroglycerin Sublingual (Ntrostat Subli (02/25/25 08:00) Morphine Sulfate Injection (02/25/25 08:00) Stat Ekg For Chest Pain (02/25/25 07:53) Notify Md Of Changes From Base (02/25/25 07:53) Composition Roofer For 24 Hours (02/25/25 07:53) Emergency Dysrhythmia Protocol (02/25/25 07:53) Rhythm Strips Once Every Shift (02/25/25 07:53) Oxygen By Nasal Cannula (02/25/25 07:53) Vital Signs Date Time Temp Pulse Resp B/P (MAP) Pulse Ox O2 Delivery O2 Flow Rate FiO2 02/25/25 05:06 112 18 108/67 02/25/25 03:05 112 16 95 Room Air 02/25/25 03:05 98.4 112 16 108/69 (82) 95 98.4 9/8/25 00:29 98.9 115 18 120/73 97 98.9 Laboratory Tests Test 02/25/25 01:28 White Blood Count 14.3 10^3/uL (4.4-10.8) #H Medications Medications Dose Ordered Sig/Sherron Route Start Time Stop Time Status Last Admin Dose Admin Morphine Sulfate 4 mg ONCE ONCE IV 02/25/25 01:15 02/25/25 01:16 DC 02/25/25 05:06 4 MG Ondansetron HCl 4 mg ONCE ONCE IV 02/25/25 01:15 02/25/25 01:16 DC 02/25/25 05:10 4 MG Sodium Chloride 1,000 ml @ 1,000 mls/hr Q1H ONCE IVB 02/25/25 01:15 02/25/25 02:14 DC 02/25/25 03:07 1,000 MLS/HR Assessment/Plan Assessment/Plan Assessment: Intractable abdominal pain, Possible sepsis, Anemia, Leukocytosis, History of epilepsy, History of DVT, History of VRE, Plan: Admit to [facility], IV antibiotics, IV hydration, Wound care consult, Home medications reconciled, Plan discussed with: Patient My Orders Orders - GERALDO LEAL [employer] Procedure Category Date Status Time Admit ADMIT 02/25/25 Transmitted 07:53 Code Status CODE 02/25/25 Transmitted 07:53 Ondansetron Hcl PHA 02/25/25 Transmitted (Zofran) 08:00 Docusate Sodium [facility] 02/25/25 Transmitted Capsule (Colace 08:00 Complete Blood Count LAB 02/26/25 Verified 04:00 Comprehensive LAB 02/26/25 Verified Metabolic Panel 04:00 Npo (Nothing By DIET 02/25/25 Verified Mouth) Diet Breakfast Pt Request For Service PT 02/25/25 Verified 07:53 Condition: Serious SHORTY 02/25/25 Verified 07:53 Acetaminophen Tablet PHA 02/25/25 Verified (Tylenol Tablet) 08:00 Nitroglycerin [facility] 02/25/25 Verified Sublingual (Ntrostat 08:00 Morphine Sulfate PHA 02/25/25 Verified Injection 08:00 Stat Ekg For Chest [facility] 02/25/25 Verified Pain 07:53 Notify Of Changes [facility] 02/25/25 Verified From Base 07:53 Composition Roofer For SHORTY 02/25/25 Verified 24 Hours 07:53 Emergency Dysrhythmia [facility] 02/25/25 Verified Protocol 07:53 Rhythm Strips Once [facility] 02/25/25 Verified Every Shift 07:53 Oxygen By Nasal RT 02/25/25 Verified Cannula 07:53 Date of Service: Feb 25, 2025 Billing Provider: GERALDO LEAL Common Visit Codes: [id number] INP/OBS CARE (HIGH) GERALDO ELAL Feb 25, 2025 09:43
[2025-02-25 10:55] VITALS: PULSE 100; RESP 17; O2SAT 97
[2025-02-25] MEDS: SERTRALINE HCL 50 MG TAB PO SCH (11:03)
[2025-02-25] MEDS: APIXABAN 5 MG TAB PO SCH (11:03)
[2025-02-25] MEDS: PROPRANOLOL HCL 20 MG TAB PO SCH (11:03)
[2025-02-25] MEDS: LINEZOLID 600MG/300ML 300 ML IV SCH (11:03)
[2025-02-25] MEDS: KETOROLAC TROMETH 30 MG/ML 1ML VIAL IV PRN (11:04)
[2025-02-25] MEDS: PANTOPRAZOLE 40 MG/10 ML VIAL INJ IV SCH (11:56)
[2025-02-25] MEDS: SODIUM CHLORIDE 0.9% 1,000 ML IV ONE (11:56)
[2025-02-25] MEDS: METOCLOPRAMIDE HCL 5MG/ml INJ 2ml VIAL IV PRN (13:28)
[2025-02-25] MEDS: ACETAMINOPHEN 325 MG TAB PO PRN (13:28)
[2025-02-25] MEDS ORDERED: HYDROcodone-ACET 10/325MG TAB PO PRN (13:30)
[2025-02-25] MEDS: GABAPENTIN 300 MG CAP PO SCH (14:28)
[2025-02-25] MEDS: CEFEPIME 2GM/50ML NS 50 ML IV ONE (15:16)
[2025-02-25] MEDS: LACTATED RINGER'S 1,000 ML IV ONE (15:37)
[2025-02-25] MEDS: Ensure HIGH Protein Chocolate 8oz Bottle PO SCH (18:00)
[2025-02-25 18:41] VITALS: BP 136/98; PULSE 78; RESP 17; TEMP 97.9; O2SAT 98
[2025-02-25 18:48] VITALS: RESP 16
[2025-02-25] MEDS: PSYLLIUM PWD 5.8GM PKG PO ONE (18:53)
--- NOTE | 2025-02-25 19:49 | DVHPNRES ---
Progress Note Date Seen: Feb 25, 2025 Resident Creating Document: VALERIE HESTER RESIDENT Medical Necessity Reason Pt with a Central, PICC or Fol: No Subjective Review of Systems Patient seen and examined, abdominal distended but soft. Bowel sounds normal. Objective vital signs Vital Sign Date Time Temp Pulse Resp B/P (MAP) Pulse Ox O2 Delivery O2 Flow Rate FiO2 02/25/25 18:48 16 Room Air* 0 21 02/25/25 18:41 97.9 78 136/98 (111) 98 97.9 medications Current Medications Medications Dose Ordered Sig/Sherron Route Start Time Stop Time Status Last Admin Dose Admin Ondansetron HCl 4 mg Q4HP PRN IV 02/25/25 08:15 Acetaminophen 650 mg Q6HP PRN PO 02/25/25 08:15 02/25/25 13:28 650 MG Pantoprazole Sodium 40 mg DAILY IV 02/25/25 10:00 02/25/25 11:56 40 MG Apixaban 5 mg BID PO 02/25/25 10:00 02/25/25 11:03 5 MG Divalproex Sodium 250 mg BID PO 02/25/25 10:00 02/25/25 11:02 250 MG Propranolol HCl 20 mg BID PO 02/25/25 10:00 02/25/25 11:03 20 MG Sertraline HCl 50 mg DAILY PO 02/25/25 10:00 02/25/25 11:03 50 MG Trazodone HCl 50 mg HS PO 02/25/25 22:00 Gabapentin 600 mg TID PO 02/25/25 14:00 02/25/25 14:28 600 MG Metoclopramide HCl 10 mg Q6HPRN PRN IV 02/25/25 09:45 02/25/25 13:28 10 MG Tramadol HCl 50 mg Q4HPRN PRN PO 02/25/25 13:30 Oxycodone HCl 10 mg Q6HP PRN PO 02/25/25 16:15 Enteral Nutritional Formula 240 ml TIDWM PO 02/25/25 18:00 Psyllium Hydrophilic Mucilloid 1 pkg DAILY PO 02/26/25 10:00 Examination General Appearance: Alert, Oriented X3, Cooperative, No acute distress. No air leak noted from Trach scar HEENT: Atraumatic, PERRLA, EOMI, Mucous membrane moist/pink Respiratory: Clear to auscultation, Normal air movement Cardiovascular: Regular rate, Normal S1, Normal S2, No murmurs, no chest wall tenderness Abdominal: Normal bowel sounds, Soft, No tenderness, No hepatospenomegaly, No masses, colostomy indwelling 100 cc of dark yellow stool Extremities: No clubbing, No cyanosis, No edema, Normal pulses, No tenderness/swelling Skin: No rashes, No breakdown, No significant lesion Neuro: Wheelchair-bound, Normal speech, Strength at 5/5 X4 ext, Normal tone, Sensation intact, Cranial nerves 3-12 NL, Reflexes 2+ Psych/Mental Status: Mental status NL, Mood NL laboratory and microbiology Laboratory Tests 02/25/25 01:28 Test 02/25/25 01:28 Range/Units Serum Glucose 102 74-106 mg/dL Labs and/or images reviewed: Labs reviewed by me, Image(s) reviewed by me Problem List/Assessment/Plan Problem List/Assessment/Plan Intractable Abdominal pain and diarrhea likely from opioid withdrawal Likely colitis secondary to above Ruled out sepsis Sinus tachycardia Right upper extremity DVT 01/09 History of epilepsy Wheelchair-bound 2022 status post fall Hypoalbuminemia Moderate to severe protein calorie malnutrition Chronic opioid dependence Neuropathic Pain Plan: IV LR 75 mL/hour Continue Eliquis 5 mg b.i.d. Continue oxycodone 10 mg Q 0 6 PRN Continue home medication sertraline and trazodone daily Continue gabapentin 600 mg t.i.d. Baclofen 10 mg HS IV ketorolac for moderate pain Keppra 750 b.i.d., olanzapine 5 mg daily, valproate 250 mg b.i.d. Propranolol 20 mg b.i.d. Pantoprazole 40 mg IV daily Plan discussed with patient in which all questions have been answered Goal of care discussed for more than 18 minutes, full code status Case discussed with Dr. Pérez Plan discussed with: Patient, Other (Nurse) My Orders My Orders Orders - VALERIE HESTER RESIDENT Procedure Category Date Status Time Lactated Ringer's PHA 02/25/25 In Process 13:30 Tramadol Hcl (Ultram) PHA 02/25/25 In Process 13:30 Pt Exercise [id number] PT 02/25/25 Logged Mins 13:20 Stool Wbc LAB 02/25/25 Logged 13:22 Nutritional PHA 02/25/25 In Process Supplements (Ensure 18:00 Psyllium Powder PHA 02/26/25 In Process (Metamucil Powder) 10:00 Date of Service: Feb 25, 2025 Billing Provider: MARIELA PÉREZ MD Common Visit Codes: [id number] INP/OBS CARE(HIGH) Secondary Visit Codes: [id number] CARE PLAN 30 MINUTES VALERIE HESTER RESIDENT Feb 25, 2025 19:49 MARIELA PÉREZ MD Feb 26, 2025 15:52
[2025-02-25 20:00] VITALS: PULSE 78; PULSE 85; RESP 18; O2SAT 98
[2025-02-25 21:00] VITALS: BP 120/77; PULSE 95; RESP 16; TEMP 98.6; O2SAT 95
[2025-02-25] MEDS ORDERED: CEFEPIME 1GM/50ML 50 ML IV SCH (22:00)
[2025-02-25 22:39] LABS: Urine Budding Yeast OCCASIONAL /hpf (None Seen); Urine Protein, UAD TRACE (Negative)
[2025-02-26] VITALS (7 sets, daily range): BP systolic 106–125; BP diastolic 73–85; PULSE 80–99; RESP 14–17; TEMP 97.8–99; O2SAT 93–98
[2025-02-26] MEDS: BACLOFEN 10 MG TAB PO SCH (00:05)
[2025-02-26] MEDS: LORazepam 0.5 MG TAB PO ONE (01:44)
[2025-02-26 07:18] LABS: Hematocrit 27.8 % (41.0-53.0); Hemoglobin 9.4 g/dL (13.5-17.5); Mean Corpuscular Hemoglobin 28.4 pg (28.0-32.0); Mean Corpuscular Volume 83.9 fL (80.0-100.0); Nucleated Red Blood Cells % 0.0 %
[2025-02-26 07:33] LABS: Albumin 3.7 g/dL (3.2-4.8); Alkaline Phosphatase 65 U/L (46-116); Anion Gap 9 (5-15); BUN/Creatinine Ratio 17.6 (10.0-20.0); Carbon Dioxide 24 mmol/L (20-31); Chloride 106 mmol/L (98-107); Glucose 92 mg/dL (74-106); Magnesium 1.7 mg/dL (1.6-2.6); Potassium 3.8 mmol/L (3.5-5.1); Sodium 139 mmol/L (136-145); Total Protein 6.6 g/dL (5.7-8.2)
[2025-02-26 07:37] LABS: Alanine Aminotransferase 9 U/L (7-40); Bilirubin, Total 0.3 mg/dL (0.2-1.0); Blood Urea Nitrogen 9 mg/dL (9-23); Calcium 8.4 mg/dL (8.7-10.4)
[2025-02-26] MEDS: PSYLLIUM PWD 5.8GM PKG PO SCH (10:06)
[2025-02-26] MEDS: LACTATED RINGER'S 1,000 ML IV ONE (10:06)
[2025-02-26] MEDS: KETOROLAC TROMETH 30 MG/ML 1ML VIAL IV PRN (14:00)
[2025-02-26] MEDS: NYSTATIN (MOUTH-THROAT) 500,000 UNITS/5 ML SUSP MT ONE (14:14)
[2025-02-26] MEDS: MAGNESIUM SULFATE 1GM/100ML 100 ML IV ONE (14:16)
[2025-02-26] MEDS: LORazepam 0.5 MG TAB PO PRN (16:40)
[2025-02-26] MEDS: FLORASTOR (S. BOULARDII) 250 MG CAP PO SCH (16:41)
--- NOTE | 2025-02-26 19:00 | DVHPNRES ---
Progress Note Date Seen: Feb 26, 2025 Resident Creating Document: VALERIE HESTER RESIDENT Medical Necessity Reason Pt with a Central, PICC or Fol: No Subjective Review of Systems Patient seen and examined, reports feeling better, abdomen soft, nondistended, mildly tender, colostomy output greenish Objective vital signs Vital Sign Date Time Temp Pulse Resp B/P (MAP) Pulse Ox O2 Delivery O2 Flow Rate FiO2 02/26/25 16:57 97.8 80 14 106/79 (88) 98 97.8 02/26/25 08:00 Room Air* 0 21 Total Intake and Output 02/25/25 02/25/25 02/26/25 15:00 23:00 07:00 Intake Total 1300 ml 225 ml 600 ml Output Total 301 ml Balance 1300 ml 225 ml 299 ml medications Current Medications Medications Dose Ordered Sig/Sherron Route Start Time Stop Time Status Last Admin Dose Admin Ondansetron HCl 4 mg Q4HP PRN IV 02/25/25 08:15 Acetaminophen 650 mg Q6HP PRN PO 02/25/25 08:15 02/25/25 13:28 650 MG Pantoprazole Sodium 40 mg DAILY IV 02/25/25 10:00 02/26/25 10:05 40 MG Apixaban 5 mg BID PO 02/25/25 10:00 02/26/25 10:06 5 MG Divalproex Sodium 250 mg BID PO 02/25/25 10:00 02/26/25 10:06 250 MG Propranolol HCl 20 mg BID PO 02/25/25 10:00 02/26/25 10:06 20 MG Sertraline HCl 50 mg DAILY PO 02/25/25 10:00 02/26/25 10:06 50 MG Trazodone HCl 50 mg HS PO 02/25/25 22:00 Gabapentin 600 mg TID PO 02/25/25 14:00 02/26/25 14:15 600 MG Metoclopramide HCl 10 mg Q6HPRN PRN IV 02/25/25 09:45 02/25/25 13:28 10 MG Tramadol HCl 50 mg Q4HPRN PRN PO 02/25/25 13:30 02/26/25 10:05 50 MG Oxycodone HCl 10 mg Q6HP PRN PO 02/25/25 16:15 02/26/25 05:40 10 MG Enteral Nutritional Formula 240 ml TIDWM PO 02/25/25 18:00 02/26/25 18:34 240 ML Psyllium Hydrophilic Mucilloid 1 pkg DAILY PO 02/26/25 10:00 02/26/25 10:06 1 PKG Baclofen 10 mg HS PO 02/25/25 22:00 02/26/25 00:05 10 MG Ketorolac Tromethamine 15 mg Q6HPRN PRN IV 02/25/25 20:00 03/02/25 19:59 02/26/25 14:00 15 MG Ergocalciferol 50,000 unit Q7D PO 02/28/25 10:00 Saccharomyces Boulardii 250 mg DAILY PO 02/26/25 15:15 02/26/25 16:41 250 MG Lorazepam 0.5 mg Q8HP PRN PO 02/26/25 16:15 02/26/25 16:40 0.5 MG Examination General Appearance: Alert, Oriented X3, Cooperative, No acute distress. No air leak noted from Trach scar HEENT: Atraumatic, PERRLA, EOMI, Mucous membrane moist/pink Respiratory: Clear to auscultation, Normal air movement Cardiovascular: Regular rate, Normal S1, Normal S2, No murmurs, no chest wall tenderness Abdominal: Normal bowel sounds, Soft, No tenderness, No hepatospenomegaly, No masses, colostomy indwelling 100 cc of dark yellow stool Extremities: No clubbing, No cyanosis, No edema, Normal pulses, No tenderness/swelling Skin: No rashes, No breakdown, No significant lesion Neuro: Wheelchair-bound, Normal speech, Strength at 3/5 X4 ext, Normal tone, Sensation intact, Cranial nerves 3-12 NL, Reflexes 2+ Psych/Mental Status: Mental status NL, Mood NL laboratory and microbiology Laboratory Tests 02/26/25 06:22 Test 02/26/25 06:22 Range/Units Serum Glucose 92 74-106 mg/dL Microbiology Date/Time Source Procedure Growth Status 02/25/25 22:10 Nose MRSA Screen - Final Complete Labs and/or images reviewed: Labs reviewed by me, Image(s) reviewed by me Problem List/Assessment/Plan Problem List/Assessment/Plan Intractable Abdominal pain and diarrhea likely from opioid withdrawal Likely colitis secondary to above Ruled out sepsis Sinus tachycardia Right upper extremity DVT 01/09 History of epilepsy Wheelchair-bound 2022 status post fall Hypoalbuminemia Moderate to severe protein calorie malnutrition Chronic opioid dependence Neuropathic Pain Plan: IV LR 75 mL/hour Continue Eliquis 5 mg b.i.d. Continue oxycodone 10 mg Q 0 6 PRN Ativan 0.5 p.o. Q 8 hour PRN Continue home medication sertraline and trazodone daily Continue gabapentin 600 mg t.i.d. Baclofen 10 mg HS IV ketorolac for moderate pain Keppra 750 b.i.d., olanzapine 5 mg daily, valproate 250 mg b.i.d. Propranolol 20 mg b.i.d. Pantoprazole 40 mg IV daily Physical therapy eval Plan discussed with patient in which all questions have been answered Goal of care discussed for more than 18 minutes, full code status Case discussed with Dr. Pérez Plan discussed with: Patient My Orders My Orders Orders - VALERIE HESTER Procedure Category Date Status Time Baclofen Tablet PHA 02/25/25 In Process (Liorisal Tablet) 22:00 Ketorolac Injection PHA 02/25/25 In Process (Toradol Injection) 20:00 Lactated Ringer's PHA 02/26/25 In Process 07:30 Strict I & O SHORTY 02/26/25 In Process 09:02 Pt Request For Service PT 02/26/25 Logged 09:02 * Wound Consult CONS 02/26/25 Transmitted 10:09 * Survey Manager CONS 02/26/25 Transmitted Consult Ergocalciferol PHA 02/28/25 In Process (Vitamin D 50,000 10:00 Florastor (S. PHA 02/26/25 In Process Boulardii) (Florastor) 15:15 * Dietary Consult CONS 02/26/25 Transmitted 15:21 Cleanse Wound With SHORTY 02/26/25 In Process Wound Clean 12:08 Discontinue Tele SHORTY 02/26/25 In Process 15:41 Transfer Orders XFER 02/26/25 Transmitted 15:41 Lorazepam Tablet PHA 02/26/25 In Process (Ativan Tablet) 16:15 Date of Service: Feb 26, 2025 Billing Provider: MARIELA PÉREZ MD Common Visit Codes: [id number] INP/OBS CARE(HIGH) Secondary Visit Codes: [id number] CARE PLAN 30 MINUTES VALERIE HESTER Feb 26, 2025 19:00 MARIELA PÉREZ MD Feb 27, 2025 12:20
[2025-02-27 01:00] VITALS: BP 127/84; PULSE 80; RESP 16; TEMP 98.7; O2SAT 96
[2025-02-27 07:40] LABS: Hematocrit 30.8 % (41.0-53.0); Hemoglobin 10.3 g/dL (13.5-17.5); Mean Corpuscular Hemoglobin 28.2 pg (28.0-32.0); Mean Corpuscular Volume 84.6 fL (80.0-100.0); Nucleated Red Blood Cells % 0.1 %
[2025-02-27 07:51] LABS: Anion Gap 12 (5-15); Carbon Dioxide 24 mmol/L (20-31); Chloride 104 mmol/L (98-107); Potassium 4.3 mmol/L (3.5-5.1); Sodium 140 mmol/L (136-145)
[2025-02-27 07:52] LABS: Calcium 9.0 mg/dL (8.7-10.4)
[2025-02-27 07:57] LABS: BUN/Creatinine Ratio 10.4 (10.0-20.0); Glucose 92 mg/dL (74-106)
[2025-02-27 07:59] LABS: Blood Urea Nitrogen 5 mg/dL (9-23)
[2025-02-27 08:00] VITALS: PULSE 74; RESP 17; O2SAT 96
[2025-02-27 09:00] VITALS: BP 125/86; PULSE 96; RESP 18; TEMP 98.6; O2SAT 96
[2025-02-27] MEDS ORDERED: FLORASTOR (S. BOULARDII) 250 MG CAP PO SCH (09:00)
[2025-02-27] MEDS ORDERED: OXYC-998 PO (12:17)
[2025-02-27 13:00] VITALS: BP 126/84; PULSE 78; RESP 17; TEMP 98.5; O2SAT 97
--- NOTE | 2025-02-27 16:54 | DVHDSRES ---
Discharge Summary Date of Admission Resident Creating Document: VALERIE HESTER RESIDENT Feb 25, 2025 at 07:53 Date of Discharge: Feb 27, 2025 Labs/Diagnostic Data: Laboratory Results Test 02/27/25 06:58 02/26/25 06:22 02/25/25 22:10 02/25/25 09:00 White Blood Count 9.3 10^3/uL (4.4-10.8) Red Blood Count 3.64 10^6/uL (4.5-5.90) Hemoglobin 10.3 g/dL (13.5-17.5) Hematocrit 30.8 % (41.0-53.0) Mean Corpuscular Volume 84.6 fL (80.0-100.0) Mean Corpuscular Hemoglobin 28.2 pg (28.0-32.0) Mean Corpuscular Hemoglobin Concent 33.4 g/dL (32.0-36.0) Red Cell Distribution Width 19.0 % (11.8-14.3) Platelet Count 457 10^3/uL (140-450) Mean Platelet Volume 5.9 fL (6.9-10.8) Neutrophils (%) (Auto) 69.2 % (37.0-80.0) Lymphocytes (%) (Auto) 19.6 % (10.0-50.0) Monocytes (%) (Auto) 7.9 % (0.0-12.0) Eosinophils (%) (Auto) 2.3 % (0.0-7.0) Basophils (%) (Auto) 1.0 % (0.0-2.0) Neutrophils # (Auto) 6.5 10 ^3/uL (1.6-8.6) Lymphocytes # (Auto) 1.8 10 ^3/uL (0.4-5.4) Monocytes # (Auto) 0.7 10 ^3/uL (0-1.3) Eosinophils # (Auto) 0.2 10 ^3/uL (0-0.8) Basophils # (Auto) 0.1 10 ^3/uL (0-0.2) Nucleated Red Blood Cells 0.1 % Sodium Level 140 mmol/L (136-145) Potassium Level 4.3 mmol/L (3.5-5.1) Chloride Level 104 mmol/L (98-107) Carbon Dioxide Level 24 mmol/L (20-31) Anion Gap 12 (5-15) Blood Urea Nitrogen 5 mg/dL (9-23) Creatinine 0.48 mg/dL (0.700-1.30) Glomerular Filtration Rate Calc 132 mL/min (>90) BUN/Creatinine Ratio 10.4 (10.0-20.0) Serum Glucose 92 mg/dL (74-106) Calcium Level 9.0 mg/dL (8.7-10.4) Magnesium Level 1.7 mg/dL (1.6-2.6) Total Bilirubin 0.3 mg/dL (0.2-1.0) Aspartate Amino Transferase (AST) 10 U/L (13-40) Alanine Aminotransferase (ALT) 9 U/L (7-40) Alkaline Phosphatase 65 U/L (46-116) Total Protein 6.6 g/dL (5.7-8.2) Albumin 3.7 g/dL (3.2-4.8) Urine Color Yellow (Yellow) Urine Clarity Clear (Clear) Urine pH 6.0 (5.0-9.0) Urine Specific [place] 1.044 (1.001-1.035) Urine Protein Trace (Negative) Urine Ketones Trace (Negative) Urine Blood Negative /uL (Negative) Urine Nitrite Negative (Negative) Urine Bilirubin Negative (Negative) Urine Urobilinogen Normal mg/dL (Negative) Urine Leukocyte Esterase Negative /uL (Negative) Urine RBC <1 /hpf (0 - 3) Urine Microscopic WBC 3 /HPF (0-3) Urine Squamous Epithelial Cells Few /hpf (<5) Urine Calcium Oxalate Crystals Few (None Seen) Urine Bacteria None seen /hpf (None Seen) Urine Mucus Few (None Seen) Urine Yeast (Budding) Occasional /hpf (None Urine Glucose Normal mg/dL (Normal) Stool for White Cells Moderate Lactic Acid Level 0.6 mmol/L (0.4-2.0) Test 02/25/25 01:28 Lipase 30 U/L (12-53) Other Laboratory Tests 02/27/25 06:58 Final Diagnosis/Problems List abd pain Discharge Disposition: Home Discharge Instruct/Medications Diet: Regular Activity: No Restrictions, As Tolerated Follow Up/Referral: fu with pcp this week Medications: resume home meds script to pharmacy Scheduled Apixaban Base (Eliquis), 5 MG PO BID Cyclobenzaprine Hcl (Cyclobenzaprine Hcl), 1 TAB PO QHSP Divalproex Sodium (Divalproex Sodium Dr), 1 TAB PO BID, (Reported) Docusate Sodium (Colace), 1 CAP PO TID, (Reported) Ergocalciferol (Vitamin D 94072 Unit), 50,000 UNIT PO Q7D Gabapentin (Gabapentin), 1 TAB PO TID, (Reported) Levetiracetam (Keppra), 500 MG PO BID Nutritional Supplements (Ensure Clear), 240 ML PO TIDWM Pantoprazole Sodium Sesquihydr (Pantoprazole Sodium), 40 MG PO DAILY Propranolol HCl (Propranolol Hydrochloride), 20 MG PO BID Sertraline Hcl (Sertraline Hcl), 50 MG PO DAILY Trazodone Hcl (Trazodone Hcl), 50 MG PO HS Scheduled PRN Alprazolam (Xanax), 1 TAB PO TID PRN for ANXIETY, (Reported) Oxycodone HCl (Oxycodone Hydrochloride), 10 MG PO TID PRN Discharge Statement: "Patient was advised to return to the ER or call 911 if any headaches, dizziness, shortness of breath, chest pain, abdominal pain, bleeding, fevers, or worsening of medical condition. Patient was counseled about treatment plan, medications, possible side effects, patientverbalized understanding. All questions were answered to the best of my ability. This discharge took greater then 30 minutes in planning, reviewing documentation, counseling the patient, and discussing with other team members." ASSESSMENT ASSESSMENT Assessment abd pain VALERIE HESTER RESIDENT Feb 27, 2025 16:54
[2025-02-27 16:59] VITALS: BP 124/87; PULSE 78; RESP 17; TEMP 98.8; O2SAT 98
--- NOTE | 2025-02-27 18:53 | DVHPNRES ---
Progress Note Date Seen: Feb 27, 2025 Resident Creating Document: VALERIE HESTER RESIDENT Medical Necessity Reason Pt with a Central, PICC or Fol: No Subjective Patient reports: Feels better Changes from previous H/P or p: No Changes Objective vital signs Vital Sign Date Time Temp Pulse Resp B/P (MAP) Pulse Ox O2 Delivery O2 Flow Rate FiO2 02/27/25 16:59 98.8 78 17 124/87 (99) 98 98.8 02/26/25 19:44 Room Air* 0 21 Total Intake and Output 02/26/25 02/26/25 02/27/25 14:59 22:59 06:59 Intake Total 240 ml 940 ml 450 ml Output Total 950 ml 800 ml 1000 ml Balance -710 ml 140 ml -550 ml medications Current Medications Medications Dose Ordered Sig/Sherron Route Start Time Stop Time Status Last Admin Dose Admin Ondansetron HCl 4 mg Q4HP PRN IV 02/25/25 08:15 Acetaminophen 650 mg Q6HP PRN PO 02/25/25 08:15 02/25/25 13:28 650 MG Pantoprazole Sodium 40 mg DAILY IV 02/25/25 10:00 02/27/25 09:38 40 MG Apixaban 5 mg BID PO 02/25/25 10:00 02/27/25 09:38 5 MG Divalproex Sodium 250 mg BID PO 02/25/25 10:00 02/27/25 09:38 250 MG Propranolol HCl 20 mg BID PO 02/25/25 10:00 02/27/25 09:39 20 MG Sertraline HCl 50 mg DAILY PO 02/25/25 10:00 02/27/25 09:38 50 MG Trazodone HCl 50 mg HS PO 02/25/25 22:00 Gabapentin 600 mg TID PO 02/25/25 14:00 02/27/25 14:00 600 MG Metoclopramide HCl 10 mg Q6HPRN PRN IV 02/25/25 09:45 02/25/25 13:28 10 MG Tramadol HCl 50 mg Q4HPRN PRN PO 02/25/25 13:30 02/26/25 10:05 50 MG Oxycodone HCl 10 mg Q6HP PRN PO 02/25/25 16:15 02/27/25 09:40 10 MG Enteral Nutritional Formula 240 ml TIDWM PO 02/25/25 18:00 02/27/25 12:00 240 ML Psyllium Hydrophilic Mucilloid 1 pkg DAILY PO 02/26/25 10:00 02/26/25 10:06 1 PKG Baclofen 10 mg HS PO 02/25/25 22:00 02/26/25 21:26 10 MG Ketorolac Tromethamine 15 mg Q6HPRN PRN IV 02/25/25 20:00 03/02/25 19:59 02/27/25 00:50 15 MG Ergocalciferol 50,000 unit Q7D PO 02/28/25 10:00 Saccharomyces Boulardii 250 mg DAILY PO 02/26/25 15:15 02/27/25 09:40 250 MG Lorazepam 0.5 mg Q8HP PRN PO 02/26/25 16:15 02/27/25 14:38 0.5 MG Examination General Appearance: Alert, Oriented X3, Cooperative, No acute distress. No air leak noted from Trach scar HEENT: Atraumatic, PERRLA, EOMI, Mucous membrane moist/pink Respiratory: Clear to auscultation, Normal air movement Cardiovascular: Regular rate, Normal S1, Normal S2, No murmurs, no chest wall tenderness Abdominal: Normal bowel sounds, Soft, No tenderness, No hepatospenomegaly, No masses, colostomy indwelling 100 cc of dark yellow stool Extremities: No clubbing, No cyanosis, No edema, Normal pulses, No tenderness/swelling Skin: No rashes, No breakdown, No significant lesion Neuro: Wheelchair-bound, Normal speech, Strength at 3/5 X4 ext, Normal tone, Sensation intact, Cranial nerves 3-12 NL, Reflexes 2+ Psych/Mental Status: Mental status NL, Mood NL laboratory and microbiology Laboratory Tests 02/27/25 06:58 Test 02/27/25 06:58 Range/Units Serum Glucose 92 74-106 mg/dL Microbiology Date/Time Source Procedure Growth Status 02/25/25 22:10 Nose MRSA Screen - Final Complete Labs and/or images reviewed: Labs reviewed by me, Image(s) reviewed by me Problem List/Assessment/Plan Problem List/Assessment/Plan Intractable Abdominal pain and diarrhea likely from opioid withdrawal Likely colitis secondary to above Ruled out sepsis Sinus tachycardia Right upper extremity DVT 01/09 History of epilepsy Wheelchair-bound 2022 status post fall Hypoalbuminemia Moderate to severe protein calorie malnutrition Chronic opioid dependence Neuropathic Pain Plan: dc IV LR 75 mL/hour Continue Eliquis 5 mg b.i.d. Continue oxycodone 10 mg Q 0 6 PRN Ativan 0.5 p.o. Q 8 hour PRN Continue home medication sertraline and trazodone daily Continue gabapentin 600 mg t.i.d. Baclofen 10 mg HS IV ketorolac for moderate pain Keppra 750 b.i.d., olanzapine 5 mg daily, valproate 250 mg b.i.d. Propranolol 20 mg b.i.d. Pantoprazole 40 mg IV daily Physical therapy DAILY Plan discussed with patient in which all questions have been answered Goal of care discussed for more than 18 minutes, full code status Case discussed with Dr. Pérez Plan discussed with: Patient Dietary Evaluation Review Comments: Encouage high prrotein and high energy food. Ensure HP or Ensure EnLive PO supplementation TID Vikas BID for healing consider wean off reglan Expected Outcomes/Goals: healed wounds, wt gain and colostomy and ilostomy reversed Date of Service: Feb 27, 2025 Billing Provider: MARIELA PÉREZ MD Common Visit Codes: [id number] INP/OBS CARE(HIGH) VALERIE HESTER RESIDENT Feb 27, 2025 18:53 MARIELA PÉREZ MD Feb 28, 2025 12:32
[2025-02-27 21:00] VITALS: BP 130/94; PULSE 87; RESP 18; TEMP 98.5; O2SAT 98
[2025-02-28] VITALS (8 sets, daily range): BP systolic 118–142; BP diastolic 87–99; PULSE 70–83; RESP 18; TEMP 97.4–98.2; O2SAT 96–98
[2025-02-28] MEDS: ERGOCALCIFEROL 50,000 UNIT(1.25MG) CAP PO SCH (10:29)
[2025-02-28] MEDS ORDERED: Juven Orange Powder PACKET 27.5gm PO STA (12:40)
[2025-02-28] MEDS: Juven Fruit Punch Powder PACKET 28.8gm PO SCH (12:45)
[2025-02-28] MEDS: Juven Orange Powder PACKET 27.5gm PO SCH (13:00)
[2025-02-28] MEDS: LIDOCAINE 5% TOPICAL PATCH TOP ONE (13:17)
--- NOTE | 2025-02-28 17:58 | DVHPNRES ---
Progress Note Date Seen: Feb 28, 2025 Resident Creating Document: VALERIE HESTER RESIDENT Medical Necessity Reason Pt with a Central, PICC or Fol: No Subjective Patient reports: No new complaints, Feels better Changes from previous H/P or p: No Changes Objective vital signs Vital Sign Date Time Temp Pulse Resp B/P (MAP) Pulse Ox O2 Delivery O2 Flow Rate FiO2 02/28/25 17:00 98.2 70 18 118/91 (100) 96 98.2 02/28/25 08:00 Room Air* 0 21 Total Intake and Output 02/27/25 02/27/25 02/28/25 15:00 23:00 07:00 Intake Total 464 ml 1600 ml Output Total 700 ml 1950 ml Balance -236 ml -350 ml medications Current Medications Medications Dose Ordered Sig/Sherron Route Start Time Stop Time Status Last Admin Dose Admin Ondansetron HCl 4 mg Q4HP PRN IV 02/25/25 08:15 Acetaminophen 650 mg Q6HP PRN PO 02/25/25 08:15 02/25/25 13:28 650 MG Apixaban 5 mg BID PO 02/25/25 10:00 02/28/25 10:23 5 MG Divalproex Sodium 250 mg BID PO 02/25/25 10:00 02/28/25 10:22 250 MG Propranolol HCl 20 mg BID PO 02/25/25 10:00 02/28/25 10:23 20 MG Sertraline HCl 50 mg DAILY PO 02/25/25 10:00 02/28/25 10:23 50 MG Trazodone HCl 50 mg HS PO 02/25/25 22:00 Gabapentin 600 mg TID PO 02/25/25 14:00 02/28/25 13:17 600 MG Metoclopramide HCl 10 mg Q6HPRN PRN IV 02/25/25 09:45 02/25/25 13:28 10 MG Tramadol HCl 50 mg Q4HPRN PRN PO 02/25/25 13:30 02/26/25 10:05 50 MG Oxycodone HCl 10 mg Q6HP PRN PO 02/25/25 16:15 02/28/25 16:55 10 MG Enteral Nutritional Formula 240 ml TIDWM PO 02/25/25 18:00 02/28/25 12:00 240 ML Psyllium Hydrophilic Mucilloid 1 pkg DAILY PO 02/26/25 10:00 02/28/25 10:29 1 PKG Baclofen 10 mg HS PO 02/25/25 22:00 02/27/25 21:29 10 MG Ketorolac Tromethamine 15 mg Q6HPRN PRN IV 02/25/25 20:00 03/02/25 19:59 02/28/25 01:57 15 MG Ergocalciferol 50,000 unit Q7D PO 02/28/25 10:00 02/28/25 10:29 50,000 UNIT Saccharomyces Boulardii 250 mg DAILY PO 02/26/25 15:15 02/28/25 10:24 250 MG Lorazepam 0.5 mg Q8HP PRN PO 02/26/25 16:15 02/27/25 23:59 0.5 MG Pantoprazole Sodium 40 mg DAILY@0600 PO 03/01/25 06:00 Lidocaine 1 patch DAILY TOP 03/01/25 10:00 Enteral Nutritional Formula 28.8 gm BIDBM PO 02/28/25 12:45 Enteral Nutritional Formula 27.5 gm BID STAT PO 02/28/25 12:40 02/28/25 12:41 Cancel Enteral Nutritional Formula 27.5 gm BID PO 02/28/25 13:00 02/28/25 13:00 27.5 GM Examination General Appearance: Alert, Oriented X3, Cooperative, No acute distress. No air leak noted from Trach scar HEENT: Atraumatic, PERRLA, EOMI, Mucous membrane moist/pink Respiratory: Clear to auscultation, Normal air movement Cardiovascular: Regular rate, Normal S1, Normal S2, No murmurs, no chest wall tenderness Abdominal: Normal bowel sounds, Soft, No tenderness, No hepatospenomegaly, No masses, colostomy indwelling 100 cc of dark yellow stool Extremities: No clubbing, No cyanosis, No edema, Normal pulses, No tenderness/swelling Skin: No rashes, No breakdown, No significant lesion Neuro: Wheelchair-bound, Normal speech, Strength at 3/5 X4 ext, Normal tone, Sensation intact, Cranial nerves 3-12 NL, Reflexes 2+ Psych/Mental Status: Mental status NL, Mood NL laboratory and microbiology Laboratory Tests 02/27/25 06:58 Test 02/27/25 06:58 Range/Units Serum Glucose 92 74-106 mg/dL Microbiology Date/Time Source Procedure Growth Status 02/25/25 22:10 Nose MRSA Screen - Final Complete Labs and/or images reviewed: Labs reviewed by me, Image(s) reviewed by me Problem List/Assessment/Plan Problem List/Assessment/Plan Intractable Abdominal pain and diarrhea likely from opioid withdrawal Likely colitis secondary to above Ruled out sepsis Sinus tachycardia Right upper extremity DVT 01/09 History of epilepsy Wheelchair-bound 2022 status post fall Hypoalbuminemia Moderate to severe protein calorie malnutrition Chronic opioid dependence Neuropathic Pain Plan: DC IV LR 75 mL/hour Sudden lidocaine patch daily Continue Eliquis 5 mg b.i.d. Continue oxycodone 10 mg Q 0 6 PRN Ativan 0.5 p.o. Q 8 hour PRN Continue home medication sertraline and trazodone daily Continue gabapentin 600 mg t.i.d. Baclofen 10 mg HS IV ketorolac for moderate pain Keppra 750 b.i.d., olanzapine 5 mg daily, valproate 250 mg b.i.d. Propranolol 20 mg b.i.d. Pantoprazole 40 mg IV daily Physical therapy DAILY Plan discussed with patient in which all questions have been answered Goal of care discussed for more than 18 minutes, full code status Case discussed with Dr. Pérez Plan discussed with: Patient My Orders My Orders Orders - VALERIE HESTER Procedure Category Date Status Time Dietary Education By NAN 02/27/[address] 19:48 * Logistics Assistant CONS 02/28/25 Transmitted Consult Pantoprazole Tablet PHA 03/01/25 In Process (Protonix Tablet) 06:00 Lidocaine 5% Topical PHA 03/01/25 In Process Patch (Lidoderm 5% 10:00 Nutritional PHA 02/28/25 In Process Supplements (Vikas 12:45 Nutritional PHA 02/28/25 In Process Supplements (Vikas 13:00 Dietary Evaluation Review Comments: Encouage high prrotein and high energy food. Ensure HP or Ensure EnLive PO supplementation TID Vikas BID for healing consider wean off reglan Expected Outcomes/Goals: healed wounds, wt gain and colostomy and ilostomy reversed Date of Service: Feb 28, 2025 Billing Provider: MARIELA PÉREZ MD Common Visit Codes: [id number] INP/OBS CARE(HIGH) Secondary Visit Codes: [id number] CARE PLAN 30 MINUTES VALERIE HESTER Feb 28, 2025 17:58 MARIELA PÉREZ MD Mar 02, 2025 11:54
[2025-03-01] VITALS (8 sets, daily range): BP systolic 107–140; BP diastolic 67–90; PULSE 68–86; RESP 16–19; TEMP 97.5–98.1; O2SAT 94–99
[2025-03-01] MEDS: PANTOPRAZOLE 40 MG TAB PO SCH (05:16)
[2025-03-01] MEDS: LIDOCAINE 5% TOPICAL PATCH TOP SCH (08:55)
[2025-03-01 10:50] LABS: Chloride 102 mmol/L (98-107); Potassium 4.9 mmol/L (3.5-5.1); Sodium 137 mmol/L (136-145)
[2025-03-01 10:51] LABS: Anion Gap 10 (5-15); Carbon Dioxide 25 mmol/L (20-31)
[2025-03-01 10:52] LABS: Calcium 9.6 mg/dL (8.7-10.4)
[2025-03-01 10:56] LABS: BUN/Creatinine Ratio 45.5 (10.0-20.0); Glucose 99 mg/dL (74-106)
[2025-03-01 10:57] LABS: Blood Urea Nitrogen 25 mg/dL (9-23)
--- NOTE | 2025-03-01 15:47 | DVHPNRES ---
Progress Note Date Seen: Mar 01, 2025 Resident Creating Document: VALERIE HESTER RESIDENT Medical Necessity Reason Pt with a Central, PICC or Fol: No Subjective Patient reports: No new complaints Changes from previous H/P or p: No Changes Objective vital signs Vital Sign Date Time Temp Pulse Resp B/P (MAP) Pulse Ox O2 Delivery O2 Flow Rate FiO2 03/01/25 13:02 97.8 75 18 126/90 (102) 98 97.8 03/01/25 08:00 Room Air* 0 21 Total Intake and Output 02/28/25 02/28/25 03/01/25 15:00 23:00 07:00 Intake Total 711 ml 850 ml 900 ml Output Total 670 ml 1300 ml Balance 711 ml 180 ml -400 ml medications Current Medications Medications Dose Ordered Sig/Sherron Route Start Time Stop Time Status Last Admin Dose Admin Ondansetron HCl 4 mg Q4HP PRN IV 02/25/25 08:15 Acetaminophen 650 mg Q6HP PRN PO 02/25/25 08:15 02/25/25 13:28 650 MG Apixaban 5 mg BID PO 02/25/25 10:00 03/01/25 10:30 5 MG Divalproex Sodium 250 mg BID PO 02/25/25 10:00 03/01/25 08:55 250 MG Propranolol HCl 20 mg BID PO 02/25/25 10:00 03/01/25 08:55 20 MG Sertraline HCl 50 mg DAILY PO 02/25/25 10:00 03/01/25 08:55 50 MG Trazodone HCl 50 mg HS PO 02/25/25 22:00 02/28/25 21:05 50 MG Gabapentin 600 mg TID PO 02/25/25 14:00 03/01/25 14:29 600 MG Metoclopramide HCl 10 mg Q6HPRN PRN IV 02/25/25 09:45 02/25/25 13:28 10 MG Tramadol HCl 50 mg Q4HPRN PRN PO 02/25/25 13:30 02/26/25 10:05 50 MG Oxycodone HCl 10 mg Q6HP PRN PO 02/25/25 16:15 02/28/25 16:55 10 MG Enteral Nutritional Formula 240 ml TIDWM PO 02/25/25 18:00 03/01/25 12:00 240 ML Psyllium Hydrophilic Mucilloid 1 pkg DAILY PO 02/26/25 10:00 03/01/25 08:55 1 PKG Baclofen 10 mg HS PO 02/25/25 22:00 02/28/25 21:08 10 MG Ketorolac Tromethamine 15 mg Q6HPRN PRN IV 02/25/25 20:00 03/02/25 19:59 03/01/25 14:30 15 MG Ergocalciferol 50,000 unit Q7D PO 02/28/25 10:00 02/28/25 10:29 50,000 UNIT Saccharomyces Boulardii 250 mg DAILY PO 02/26/25 15:15 03/01/25 08:48 250 MG Lorazepam 0.5 mg Q8HP PRN PO 02/26/25 16:15 03/01/25 11:30 0.5 MG Pantoprazole Sodium 40 mg DAILY@0600 PO 03/01/25 06:00 03/01/25 05:16 40 MG Lidocaine 1 patch DAILY TOP 03/01/25 10:00 03/01/25 08:55 1 PATCH Enteral Nutritional Formula 28.8 gm BIDBM PO 02/28/25 12:45 03/01/25 10:00 28.8 GM Enteral Nutritional Formula 27.5 gm BID STAT PO 02/28/25 12:40 02/28/25 12:41 Cancel Enteral Nutritional Formula 27.5 gm BID PO 02/28/25 13:00 02/28/25 21:08 27.5 GM Examination General Appearance: Alert, Oriented X3, Cooperative, No acute distress. No air leak noted from Trach scar HEENT: Atraumatic, PERRLA, EOMI, Mucous membrane moist/pink Respiratory: Clear to auscultation, Normal air movement Cardiovascular: Regular rate, Normal S1, Normal S2, No murmurs, no chest wall tenderness Abdominal: Normal bowel sounds, Soft, No tenderness, No hepatospenomegaly, No masses, colostomy indwelling 100 cc of dark yellow stool Extremities: No clubbing, No cyanosis, No edema, Normal pulses, No tenderness/swelling Skin: No rashes, No breakdown, No significant lesion Neuro: Wheelchair-bound, Normal speech, Strength at 3/5 X4 ext, Normal tone, Sensation intact, Cranial nerves 3-12 NL, Reflexes 2+ Psych/Mental Status: Mental status NL, Mood NL laboratory and microbiology Laboratory Tests 03/01/25 10:00 02/27/25 06:58 Test 03/01/25 10:00 Range/Units Serum Glucose 99 74-106 mg/dL Microbiology Date/Time Source Procedure Growth Status 02/25/25 22:10 Nose MRSA Screen - Final Complete Labs and/or images reviewed: Labs reviewed by me, Image(s) reviewed by me Problem List/Assessment/Plan Problem List/Assessment/Plan Intractable Abdominal pain and diarrhea likely from opioid withdrawal Likely colitis secondary to above Ruled out sepsis Sinus tachycardia Right upper extremity DVT 01/09 History of epilepsy Wheelchair-bound 2022 status post fall Hypoalbuminemia Moderate to severe protein calorie malnutrition Chronic opioid dependence Neuropathic Pain Plan: Pending SNF placement DC IV LR 75 mL/hour Sudden lidocaine patch daily Continue Eliquis 5 mg b.i.d. Continue oxycodone 10 mg Q 0 6 PRN Ativan 0.5 p.o. Q 8 hour PRN Continue home medication sertraline and trazodone daily Continue gabapentin 600 mg t.i.d. Baclofen 10 mg HS IV ketorolac for moderate pain Keppra 750 b.i.d., olanzapine 5 mg daily, valproate 250 mg b.i.d. Propranolol 20 mg b.i.d. Pantoprazole 40 mg IV daily Physical therapy DAILY Plan discussed with patient in which all questions have been answered Goal of care discussed for more than 18 minutes, full code status Case discussed with Dr. Merritt Plan discussed with: Patient, Other Dietary Evaluation Review Comments: Encouage high prrotein and high energy food. Ensure HP or Ensure EnLive PO supplementation TID Vikas BID for healing consider wean off reglan Expected Outcomes/Goals: healed wounds, wt gain and colostomy and ilostomy reversed VALERIE HESTER RESIDENT Mar 01, 2025 15:47
[2025-03-02 05:00] VITALS: BP 103/62; PULSE 88; RESP 19; TEMP 97.6; O2SAT 96
[2025-03-02 09:00] VITALS: BP_SYST 122; BP_SYST 140; BP_DIAS 85; BP_DIAS 92; PULSE 79; PULSE 96; RESP 20; TEMP 97.8; TEMP 98.4; O2SAT 98
[2025-03-02 16:30] VITALS: BP 125/79; PULSE 80; RESP 20; TEMP 97.6; O2SAT 97
--- NOTE | 2025-03-02 17:57 | DVHPN2 ---
Subjective I am assuming the care of the patient from today onwards. Patient is here for abdominal pain with a recent prolonged stay in the hospital with acute hypoxic respiratory failure requiring intubation,, had a tracheostomy, underwent multiple abdominal surgery leaving him with a colostomy as well as ileostomy because of bowel obstruction also history of recent DVT on Eliquis presented to the hospital with the abdominal pain which is currently resolved. Changes from previous H/P or p: No Changes Eyes: No Pain, No Vision change, No Conjunctivae inflammation, No Eyelid inflammation, No Other, No Redness ENT: No Ear pain, No Ear discharge, No Nose pain, No Nose discharge, No Nose congestion, No Mouth pain, No Mouth swelling, No Throat pain, No Throat swelling, No Other Cardiovascular: No Chest Pain, No Palpitations, No Orthopnea, No Paroxysmal Noc. Dyspnea, No Edema, No Lt Headedness, No Other Respiratory: No Cough, No Dry, No Shortness of breath, No SOB with excertion, No Wheezing, No Hemoptysis, No Pleuritic Pain, No Sputum, No Other Gastrointestinal: Nausea; No Vomiting; Abdominal Pain; No Diarrhea, No Constipation, No Melena, No Hematochezia, No Other Genitourinary: No Dysuria, No Frequency, No Incontinence, No Hematuria, No Retention, No Other Musculoskeletal: No other, No neck pain, No shoulder pain, No arm pain, No back pain, No hand pain, No leg pain, No foot pain Skin: No Rash, No Lesions, No Jaundice, No Bruising, No Other Objective Vitals Vital Signs Date Time Temp Pulse Resp B/P (MAP) Pulse Ox O2 Delivery O2 Flow Rate FiO2 03/02/25 16:30 97.6 80 20 125/79 (94) 97 97.6 03/02/25 08:00 Room Air* 0 21 Intake/Output Intake and Output 03/02/25 07:00 Intake Total 1164 ml Output Total 2300 ml Balance -1136 ml Intake Oral 1164 ml Output Urine Total 2100 ml Stool Total 200 ml Exam HEENT pupils are reactive Neck is supple CV is S1-S2 regular rate and rhythm Respiratory diminished breath sounds bases GI positive bowel sounds positive ileostomy positive colostomy Extremity no edema BUTCHER ALL ROUND following commands Medications Current Medications Medications Dose Ordered Sig/Sherron Route Start Time Stop Time Status Last Admin Dose Admin Ondansetron HCl 4 mg Q4HP PRN IV 02/25/25 08:15 Acetaminophen 650 mg Q6HP PRN PO 02/25/25 08:15 02/25/25 13:28 650 MG Apixaban 5 mg BID PO 02/25/25 10:00 03/02/25 08:59 5 MG Divalproex Sodium 250 mg BID PO 02/25/25 10:00 03/02/25 08:59 250 MG Propranolol HCl 20 mg BID PO 02/25/25 10:00 03/02/25 08:58 20 MG Sertraline HCl 50 mg DAILY PO 02/25/25 10:00 03/02/25 08:58 50 MG Trazodone HCl 50 mg HS PO 02/25/25 22:00 02/28/25 21:05 50 MG Gabapentin 600 mg TID PO 02/25/25 14:00 03/02/25 13:34 600 MG Metoclopramide HCl 10 mg Q6HPRN PRN IV 02/25/25 09:45 02/25/25 13:28 10 MG Tramadol HCl 50 mg Q4HPRN PRN PO 02/25/25 13:30 03/02/25 13:34 50 MG Oxycodone HCl 10 mg Q6HP PRN PO 02/25/25 16:15 03/02/25 11:48 10 MG Enteral Nutritional Formula 240 ml TIDWM PO 02/25/25 18:00 03/02/25 11:34 240 ML Psyllium Hydrophilic Mucilloid 1 pkg DAILY PO 02/26/25 10:00 03/02/25 08:59 1 PKG Baclofen 10 mg HS PO 02/25/25 22:00 03/01/25 21:43 10 MG Ketorolac Tromethamine 15 mg Q6HPRN PRN IV 02/25/25 20:00 03/02/25 19:59 03/02/25 15:36 15 MG Ergocalciferol 50,000 unit Q7D PO 02/28/25 10:00 02/28/25 10:29 50,000 UNIT Saccharomyces Boulardii 250 mg DAILY PO 02/26/25 15:15 03/02/25 08:59 250 MG Lorazepam 0.5 mg Q8HP PRN PO 02/26/25 16:15 03/02/25 15:32 0.5 MG Pantoprazole Sodium 40 mg DAILY@0600 PO 03/01/25 06:00 03/02/25 05:44 40 MG Lidocaine 1 patch DAILY TOP 03/01/25 10:00 03/02/25 09:01 1 PATCH Enteral Nutritional Formula 28.8 gm BIDBM PO 02/28/25 12:45 03/01/25 10:00 28.8 GM Enteral Nutritional Formula 27.5 gm BID STAT PO 02/28/25 12:40 02/28/25 12:41 Cancel Enteral Nutritional Formula 27.5 gm BID PO 02/28/25 13:00 03/02/25 09:00 27.5 GM Laboratory Results Laboratory Tests 02/27/25 06:58 03/01/25 10:00 Urinalysis Test 02/25/25 22:10 Urine Color Yellow (Yellow) Urine Clarity Clear (Clear) Urine pH 6.0 (5.0-9.0) Urine Specific Graham 1.044 (1.001-1.035) Urine Protein Trace (Negative) H Urine Ketones Trace (Negative) Urine Blood Negative /uL (Negative) Urine Nitrite Negative (Negative) Urine Bilirubin Negative (Negative) Urine Urobilinogen Normal mg/dL (Negative) Urine Leukocyte Esterase Negative /uL (Negative) Urine RBC <1 /hpf (0 - 3) Urine Microscopic WBC 3 /HPF (0-3) Urine Squamous Epithelial Cells Few /hpf (<5) Urine Calcium Oxalate Crystals Few (None Seen) Urine Bacteria None seen /hpf (None Seen) Urine Mucus Few (None Seen) Urine Yeast (Budding) Occasional /hpf (None Urine Glucose Normal mg/dL (Normal) Microbiology Microbiology Date/Time Source Procedure Growth Status 02/25/25 22:10 Nose MRSA Screen - Final Complete Assessment/Plan Assessment/Plan 74-year-old male with a recent prolonged stay in the hospital from December 17 to February 20 in which he was intubated extubated status post tracheostomy as well as multiple abdominal surgeries with a status post colostomy and ileostomy presented to the hospital with the abdominal pain found to have 1. Intractable abdominal pain and diarrhea likely opiate withdrawal 2. Colitis 3. History of recent DVT in the right upper extremity of currently on Eliquis 4. Epilepsy 5. Moderate protein calorie malnutrition 6. Chronic opiate dependence 7. Neuropathic pain 8. Wheelchair-bound -continue antibiotics, discharge plan. Plan discussed with: Patient Date of Service: Mar 02, 2025 Billing Provider: CRISTIANE CAMPBELL MD Common Visit Codes: [id number] INP/OBS CARE(MOD) CRISTIANE CAMPBELL MD Mar 02, 2025 17:57
[2025-03-02 20:00] VITALS: PULSE 94; RESP 18; O2SAT 97
[2025-03-02 21:00] VITALS: BP 107/77; PULSE 94; RESP 18; TEMP 98; O2SAT 97
[2025-03-03] VITALS (7 sets, daily range): BP systolic 100–131; BP diastolic 66–86; PULSE 100–106; RESP 17–20; TEMP 37.4; O2SAT 96–97
--- NOTE | 2025-03-03 18:17 | DVHDS2 ---
Discharge Summary Date of Admission Feb 25, 2025 at 07:53 Date of Discharge: Feb 27, 2025 Labs/Diagnostic Data: Laboratory Results Test 03/01/25 10:00 02/27/25 06:58 02/26/25 06:22 02/25/25 22:10 Sodium Level 137 mmol/L (136-145) Potassium Level 4.9 mmol/L (3.5-5.1) Chloride Level 102 mmol/L (98-107) Carbon Dioxide Level 25 mmol/L (20-31) Anion Gap 10 (5-15) Blood Urea Nitrogen 25 mg/dL (9-23) Creatinine 0.55 mg/dL (0.700-1.30) Glomerular Filtration Rate Calc 127 mL/min (>90) BUN/Creatinine Ratio 45.5 (10.0-20.0) Serum Glucose 99 mg/dL (74-106) Calcium Level 9.6 mg/dL (8.7-10.4) White Blood Count 9.3 10^3/uL (4.4-10.8) Red Blood Count 3.64 10^6/uL (4.5-5.90) Hemoglobin 10.3 g/dL (13.5-17.5) Hematocrit 30.8 % (41.0-53.0) Mean Corpuscular Volume 84.6 fL (80.0-100.0) Mean Corpuscular Hemoglobin 28.2 pg (28.0-32.0) Mean Corpuscular Hemoglobin Concent 33.4 g/dL (32.0-36.0) Red Cell Distribution Width 19.0 % (11.8-14.3) Platelet Count 457 10^3/uL (140-450) Mean Platelet Volume 5.9 fL (6.9-10.8) Neutrophils (%) (Auto) 69.2 % (37.0-80.0) Lymphocytes (%) (Auto) 19.6 % (10.0-50.0) Monocytes (%) (Auto) 7.9 % (0.0-12.0) Eosinophils (%) (Auto) 2.3 % (0.0-7.0) Basophils (%) (Auto) 1.0 % (0.0-2.0) Neutrophils # (Auto) 6.5 10 ^3/uL (1.6-8.6) Lymphocytes # (Auto) 1.8 10 ^3/uL (0.4-5.4) Monocytes # (Auto) 0.7 10 ^3/uL (0-1.3) Eosinophils # (Auto) 0.2 10 ^3/uL (0-0.8) Basophils # (Auto) 0.1 10 ^3/uL (0-0.2) Nucleated Red Blood Cells 0.1 % Magnesium Level 1.7 mg/dL (1.6-2.6) Total Bilirubin 0.3 mg/dL (0.2-1.0) Aspartate Amino Transferase (AST) 10 U/L (13-40) Alanine Aminotransferase (ALT) 9 U/L (7-40) Alkaline Phosphatase 65 U/L (46-116) Total Protein 6.6 g/dL (5.7-8.2) Albumin 3.7 g/dL (3.2-4.8) Urine Color Yellow (Yellow) Urine Clarity Clear (Clear) Urine pH 6.0 (5.0-9.0) Urine Specific [place] 1.044 (1.001-1.035) Urine Protein Trace (Negative) Urine Ketones Trace (Negative) Urine Blood Negative /uL (Negative) Urine Nitrite Negative (Negative) Urine Bilirubin Negative (Negative) Urine Urobilinogen Normal mg/dL (Negative) Urine Leukocyte Esterase Negative /uL (Negative) Urine RBC <1 /hpf (0 - 3) Urine Microscopic WBC 3 /HPF (0-3) Urine Squamous Epithelial Cells Few /hpf (<5) Urine Calcium Oxalate Crystals Few (None Seen) Urine Bacteria None seen /hpf (None Seen) Urine Mucus Few (None Seen) Urine Yeast (Budding) Occasional /hpf (None Urine Glucose Normal mg/dL (Normal) Stool for White Cells Moderate Test 02/25/25 09:00 02/25/25 01:28 Lactic Acid Level 0.6 mmol/L (0.4-2.0) Lipase 30 U/L (12-53) Other Laboratory Tests 03/01/25 10:00 02/27/25 06:58 Brief Hx & Hospital Course: 74-year-old male with a recent prolonged stay in the hospital from December 17 to February 20 in which he was intubated extubated status post tracheostomy as well as multiple abdominal surgeries with a status post colostomy and ileostomy presented to the hospital with the abdominal pain found to have intractable abdominal pain with diarrhea secondary to opiate withdrawal patient here patient also had colitis which was improved. Patient is being discharged under stable condition with a close follow up as an outpatient with the PCP. found to have Condition at Discharge: Stable Final Diagnosis/Problems List 74-year-old male with a recent prolonged stay in the hospital from December 17 to February 20 in which he was intubated extubated status post tracheostomy as well as multiple abdominal surgeries with a status post colostomy and ileostomy presented to the hospital with the abdominal pain found to have 1. Intractable abdominal pain and diarrhea likely opiate withdrawal 2. Colitis 3. History of recent DVT in the right upper extremity of currently on Eliquis 4. Epilepsy 5. Moderate protein calorie malnutrition 6. Chronic opiate dependence 7. Neuropathic pain 8. Wheelchair-bound Discharge Disposition: Home SNF Discharge Will this Physician continue t: No Discharge Instruct/Medications Diet: Regular Activity: See Comment Activity comment: Please no driving, no signing legal documents, no playing on machinery while on narcotics. Follow Up/Referral: fu with pcp this week Medications: resume home meds script to pharmacy New Medications: Oxycodone HCl (Oxycodone Hydrochloride) 10 Mg Tab 10 MG PO TID PRN for 10 Days, #30 TAB Scheduled Apixaban Base (Eliquis), 5 MG PO BID Cyclobenzaprine Hcl (Cyclobenzaprine Hcl), 1 TAB PO QHSP Divalproex Sodium (Divalproex Sodium Dr), 1 TAB PO BID, (Reported) Docusate Sodium (Colace), 1 CAP PO TID, (Reported) Ergocalciferol (Vitamin D 47307 Unit), 50,000 UNIT PO Q7D Gabapentin (Gabapentin), 1 TAB PO TID, (Reported) Levetiracetam (Keppra), 500 MG PO BID Nutritional Supplements (Ensure Clear), 240 ML PO TIDWM Pantoprazole Sodium Sesquihydr (Pantoprazole Sodium), 40 MG PO DAILY Propranolol HCl (Propranolol Hydrochloride), 20 MG PO BID Sertraline Hcl (Sertraline Hcl), 50 MG PO DAILY Trazodone Hcl (Trazodone Hcl), 50 MG PO HS Scheduled PRN Alprazolam (Xanax), 1 TAB PO TID PRN for ANXIETY, (Reported) Oxycodone HCl (Oxycodone Hydrochloride), 10 MG PO TID PRN Discharge Statement: "Patient was advised to return to the ER or call 911 if any headaches, dizziness, shortness of breath, chest pain, abdominal pain, bleeding, fevers, or worsening of medical condition. Patient was counseled about treatment plan, medications, possible side effects, patientverbalized understanding. All questions were answered to the best of my ability. This discharge took greater then 30 minutes in planning, reviewing documentation, counseling the patient, and discussing with other team members." ASSESSMENT ASSESSMENT Assessment 74-year-old male with a recent prolonged stay in the hospital from December 17 to February 20 in which he was intubated extubated status post tracheostomy as well as multiple abdominal surgeries with a status post colostomy and ileostomy presented to the hospital with the abdominal pain found to have 1. Intractable abdominal pain and diarrhea likely opiate withdrawal 2. Colitis 3. History of recent DVT in the right upper extremity of currently on Eliquis 4. Epilepsy 5. Moderate protein calorie malnutrition 6. Chronic opiate dependence 7. Neuropathic pain 8. Wheelchair-bound Date of Service: Mar 03, 2025 Billing Provider: CRISTIANE CAMPBELL MD Common Visit Codes: 10092-VKY/OBS DISCH DAY >30min CRISTIANE CAMPBELL MD Mar 03, 2025 18:17
== END 2025-03-03 18:45 | disposition home or self-care (01) | DRG 248 ==
LOC: ER 00:27 → OVERFLOW 07:53 → ER 07:56 → TELE-WESTW 18:39 → WEST WING 02-26 17:42
PROVIDERS: ADMIT Internal Medicine Pulmonary Disease; ATTEND Internal Medicine Pulmonary Disease
DX: A04.9 Bacterial intestinal infection, unspecified (principal); E44.0 Moderate protein-calorie malnutrition; G81.94 Hemiplegia, unspecified affecting left nondominant side; E88.09 Other disorders of plasma-protein metabolism, not elsewhere classified; E86.0 Dehydration; D64.9 Anemia, unspecified; G89.4 Chronic pain syndrome; G40.909 Epilepsy, unspecified, not intractable, without status epilepticus; F11.23 Opioid dependence with withdrawal; M10.9 Gout, unspecified; Z93.3 Colostomy status; Z88.6 Allergy status to analgesic agent; Z99.3 Dependence on wheelchair; Z86.718 Personal history of other venous thrombosis and embolism; Z68.22 Body mass index [BMI] 22.0-22.9, adult; Z79.01 Long term (current) use of anticoagulants
CPT/HCPCS: 36415; 74177; 80048; 80053; 81001; 83605; 83690; 83735; 85025; 85048; 87081; 96365; 96375; 97110; 97116; 97163; 97530; G0378; J0692; J1885; J2405; J2470; J3490

== ENCOUNTER 2025-05-09 13:46 | Emergency (ER) | payer MEDICAID ==
[~2025-05-09] VITALS: Ht 175.3 cm; Wt 67.0 kg
[~2025-05-09 13:46] MED LIST changes: +OXYC-998 PO
[2025-05-09 14:02] VITALS: RESP 18; O2SAT 97
--- NOTE | 2025-05-09 14:04 | ED.PDOC ---
History of Present Illness HPI Comments HPI: This is a 45 year old male NAA presenting to the ED with chief complaint of full body pain. EMS reports patient is coming from where he has been experiencing full body pain including chest wall pain, abdominal pain, headaches, and tremors for the past 4 days. Patient relays that his pain is currently a 9/10. Patient states that he is unable to use his right leg and left arm, being wheelchair bound. Patient notes that he is currently on Eliquis for a DVT in his right arm. Patient is unable to remember when he was last admitted to the ED and exactly when symptom onset began. Patient denies any N/V/D, dizziness, fever, chills, or SOB. Past Medical History: Epilepsy, DVT, TBI x 2 years ago, Neuropathy Past Surgical History: Colostomy, Ileostomy, Nephrostomy, Tracheostomy, Bowel Resection Social History: Denies smoking, drinking, or drug use. Medications: Reviewed. Allergies: Aspirin Previous admission diagnoses from 12/17 - 02/19: Intractable pain secondary to Intra-abdominal sepsis with VRE and peritonitis status post exploratory laparotomy x2 01/05 and 12/27 Status post bowel resection and colostomy Intra-abdominal abscess Septic shock likely due to intra-abdominal sepsis Intra-abdominal sepsis with VRE Splenic fluid collection Acute metabolic encephalopathy likely due to in-hospital delirium Acute hypoxic respiratory failure status post intubation status post tracheostomy 01/05 decannulation 02/20 Likely acute respiratory distress syndrome-non cardiogenic pulmonary edema-resolving Right upper extremity DVT 01/09 Anemia likely normocytic status post 3 packed RBC transfusion Sinus tachycardia Pleural effusion status post thoracocentesis Night terrors Hypoalbuminemia Moderate to severe protein calorie malnutrition Left upper extremity superficial thrombosis Thrombocytosis Chronic open dependence Neuropathic Pain Vitamin-D deficiency History of epilepsy LAY: HPI: Poor Historian. Patient states compliance with all his medications including his pain medication. REVIEW OF SYSTEMS: CONSTITUTIONAL: Denies acute: fever, diaphoresis, chills, HEAD: Denies acute: headache, photophobia Eyes: Denies acute: Double vision, vision loss, eye pain, eye discharge. EARS: Denies acute: tinnitus, hearing loss, ear discharge, ear pain, THROAT: Denies acute: sore throat, swelling, difficulty swallowing , pain with swallowing, change in voice. NECK: Denies acute: neck pain, neck swelling, stiff neck. HEART: Denies acute : palpitations, LUNGS: Denies acute: SOB, wheezing, cough, hemoptysis ABDOMEN: Denies acute: Nausea, Vomiting, diarrhea, melena , hematemesis, hematochezia SKIN: Denies acute: rash, redness, lesions, itchiness. EXTREMITIES: Denies acute: calf pain, numbness, tingling, weakness, Denies acute: Low back pain. Neuro: Denies acute: focal neurological deficit, motor or sensory focal neurological deficit, tremors, seizure like activity, confusion, dizziness, change in mental status, loss of bowel or bladder function, cauda equina like symptoms. : Denies acute: dysuria, hematuria, flank pain, increase in urinary frequency. PSYCH: Denies acute: hallucination, suicidal ideation, homicidal ideation. PHYSICAL EXAM: General: ---moderate----acute distress, awake and alert. History of traumatic brain injury with some impairment. Head: normocephalic, atraumatic. No raccoon's eyes, no bonds sign. Neck: supple, trachea is midline, no swelling. Throat: Normal phonation. Eyes:, no erythema, no purulent discharge, no proptosis, no icterus. Heart: regular rate, regular rhythm, no significant murmur appreciated. Lungs: no apparent respiratory distress, Able to speak in full sentences. No wheezing, no rhonchi, no crackles. No stridors Clear to auscultation bilaterally. Abdomen: Generalized tender to palpation, non distended, soft, no guarding, no rebound, + bowel sounds. Noted ileostomy and colostomy pouch is. Neuro: Awake, Alert, self, situation, follows commands. Generalized occasional body spasms Speech is at baseline with a history of TBI. Skin: no petechia, no purpura, no cyanosis, non-pale, not jaundice. Lower extremities: --no - Pitting edema no deformity, no focal swelling, Patient states he has paralysis in his right lower extremity. Makes eye contact. Face: no apparent facial droop. ED COURSE: DISCLAIMER: This medical document was created using an electronic medical record system with voice recognition software and computerized dictation system. Although this document has been carefully reviewed, there might still be some phonetic and typographical errors. Occasional wrong-word or "sound-alike" substitutions may have occurred due to the inherent limitations of voice recognition software. These areas are purely typographical due to imperfections of the software programs and do not reflect any compromise in the patient's medical care. Please read the chart carefully and recognize, using context, where these substitutions have occurred. Time Seen by MD: 14:00 Primary Care Provider: MARIBELL Reviewed Notes: Medications, Allergies Allergies: Coded Allergies: Aspirin (Verified Allergy, Unknown, 02/25/25) Home Meds Active Scripts Oxycodone HCl (Oxycodone Hydrochloride) 10 Mg Tab, 10 MG PO TID PRN for 10 Days, #30 TAB Prov:MARIELA PÉREZ MD 02/27/25 Sertraline Hcl (Sertraline Hcl) 50 Mg Tab, 50 MG PO DAILY for 30 Days, #30 MG [facility] 02/22/25 Levetiracetam (Keppra) 500 Mg Tab, 500 MG PO BID for 30 Days, #30 MG Prov:[facility] 02/22/25 Trazodone Hcl (Trazodone Hcl) 50 Mg Tab, 50 MG PO HS for 30 Days, #30 MG Prov:[facility] 02/22/25 Propranolol HCl (Propranolol Hydrochloride) 20 Mg Tab, 20 MG PO BID for 30 Days, #60 TAB Prov:[facility] 02/21/25 Pantoprazole Sodium Sesquihydr (Pantoprazole Sodium) 40 Mg Tab, 40 MG PO DAILY for 30 Days, #30 TAB Prov:[facility] 02/21/25 Nutritional Supplements (ENSURE CLEAR) Bbry/Pom Liq, 240 ML PO TIDWM for 30 Days, #90 LIQ Prov:[facility] 02/21/25 Ergocalciferol (VITAMIN D 47093 UNIT) 50,000 [place], [address] UNIT PO Q7D for 30 Days, #6 CAP Prov:[facility] 02/21/25 Apixaban Base (ELIQUIS) 5 Mg Tab, 5 MG PO BID for 90 Days, #180 TAB Prov:[facility] 02/21/25 Cyclobenzaprine Hcl (Cyclobenzaprine Hcl) 5 Mg Tab, 1 TAB PO QHSP, #14 TAB 0 Refills Prov:HARRY QUIROZ 08/16/23 Reported Medications Alprazolam (Xanax) 0.5 Mg Tb, 1 TAB PO TID PRN for ANXIETY, #90 TAB 12/18/24 Gabapentin (Gabapentin) 600 Mg Tab, 1 TAB PO TID, #90 TAB 2 Refills 12/18/24 Docusate Sodium (Colace) 100 Mg Cap, 1 CAP PO TID, #30 CAP 12/18/24 Divalproex Sodium (Divalproex Sodium Dr) 250 Mg Tab, 1 TAB PO BID 02/26/23 Information Source: Patient, Emergency Med Personnel Mode of Arrival: EMS Was a procedure done? Was a procedure done?: No Differential Dx Considerations may include: DDX include but not limited to diverticulitis, colitis, gastroenteritis, acute abdomen, SBO, enteritis, constipation, volvulus, appendicitis, Gallbladder disease, choledocolithiasis, ascending cholangitis, pancreatitis, intraAbdominal mass/neoplasm, hepatitis, UTI, pylonephritis, kidney stone, aneurysm, dissection, Inflammatory bowel disease, gastroparesis, ischemic bowel. Food poisoning, bacterial/parasitic/viral etiology, trauma, diabetes DKA, X-Ray, Labs, Meds, VS Vital Signs Date Time Temp Pulse Resp B/P (MAP) Pulse Ox O2 Delivery O2 Flow Rate FiO2 05/09/25 17:57 99.0 100 16 119/93 (102) 99 99.0 05/09/25 14:02 18 97 Room Air* 0 21 05/09/25 13:59 86 05/09/25 13:53 97.0 88 20 138/94 97 97.0 Lab Test 05/09/25 16:43 05/09/25 15:07 05/09/25 14:16 Range/Units Urine Color Light-yellow Yellow Urine Clarity Clear Clear Urine pH 6.0 5.0-9.0 Urine Specific Browning 1.016 1.001-1.035 Urine Protein Negative Negative Urine Ketones Trace Negative Urine Blood Negative Negative /uL Urine Nitrite Negative Negative Urine Bilirubin Negative Negative Urine Urobilinogen Normal Negative mg/dL Urine Leukocyte Esterase Negative Negative /uL Urine RBC 1 0 - 3 /hpf Urine Microscopic WBC 1 0-3 /HPF Urine Squamous Epithelial Cells None seen <5 /hpf Urine Bacteria None seen None Seen /hpf Urine Mucus Few None Seen Urine Glucose Normal Normal mg/dL Troponin I High Sensitivity < 3 L < 3 L </=54 ng/L White Blood Count 8.9 4.4-10.8 10^3/uL Red Blood Count 4.90 4.5-5.90 10^6/uL Hemoglobin 12.8 L 13.5-17.5 g/dL Hematocrit 39.4 L 41.0-53.0 % Mean Corpuscular Volume 80.4 80.0-100.0 fL Mean Corpuscular Hemoglobin 26.2 L 28.0-32.0 pg Mean Corpuscular Hemoglobin Concent 32.6 32.0-36.0 g/dL Red Cell Distribution Width 17.6 H 11.8-14.3 % Platelet Count 384 140-450 10^3/uL Mean Platelet Volume 6.2 L 6.9-10.8 fL Neutrophils (%) (Auto) 71.7 37.0-80.0 % Lymphocytes (%) (Auto) 21.6 10.0-50.0 % Monocytes (%) (Auto) 4.6 0.0-12.0 % Eosinophils (%) (Auto) 1.3 0.0-7.0 % Basophils (%) (Auto) 0.8 0.0-2.0 % Neutrophils # (Auto) 6.4 1.6-8.6 10 ^3/uL Lymphocytes # (Auto) 1.9 0.4-5.4 10 ^3/uL Monocytes # (Auto) 0.4 0-1.3 10 ^3/uL Eosinophils # (Auto) 0.1 0-0.8 10 ^3/uL Basophils # (Auto) 0.1 0-0.2 10 ^3/uL Nucleated Red Blood Cells 0.0 % Sodium Level 140 136-145 mmol/L Potassium Level 4.4 3.5-5.1 mmol/L Chloride Level 107 98-107 mmol/L Carbon Dioxide Level 18 L 20-31 mmol/L Anion Gap 15 5-15 Blood Urea Nitrogen 11 9-23 mg/dL Creatinine 0.59 L 0.700-1.30 mg/dL Glomerular Filtration Rate Calc 123 >90 mL/min BUN/Creatinine Ratio 18.6 10.0-20.0 Serum Glucose 90 74-106 mg/dL Lactic Acid Level 0.8 0.4-2.0 mmol/L Calcium Level 9.5 8.7-10.4 mg/dL Magnesium Level 1.8 1.6-2.6 mg/dL Total Bilirubin 0.3 0.2-1.0 mg/dL Aspartate Amino Transferase (AST) 21 13-40 U/L Alanine Aminotransferase (ALT) 11 7-40 U/L Alkaline Phosphatase 61 46-116 U/L Creatine Kinase 42 L 46-171 U/L Total Protein 7.7 5.7-8.2 g/dL Albumin 4.7 3.2-4.8 g/dL Lipase 37 12-53 U/L [place] [id number] Ph: [phone] DIAGNOSTIC IMAGING Diagnostic Imaging Report : [id number] Signed PATIENT: BARBRA TRUJILLO ACCT: [id number] UNIT: [id number] : 1980 LOC: ER ROOM / BED: / AGE / SEX: 45 / M ADM STATUS: REG ER SERVICE 1355 ORDERING PHYSICIAN: LEONID SOLORIO DO PROCEDURE(s): CXRP - CHEST PORTABLE REASON: cp ORDER NUMBER(s): [id number], ACCESSION NUMBER(s): [id number] CHEST RADIOGRAPH Indication: cp Technique: Single frontal view of the chest was obtained COMPARISON: XY CHEST PORTABLE on DOS: 02/12/25, XY CHEST XRAY 1 VIEW on DOS: 02/11/25, XY CHEST PORTABLE on DOS: 02/09/25, XY CHEST PORTABLE on DOS: 02/09/25, XY CHEST XRAY 1 VIEW on DOS: 02/09/25 FINDINGS: Lungs and pleural spaces are clear. Cardiac silhouette and yusuf are within normal limits. Bones and soft tissues demonstrate no significant abnormality. IMPRESSION: No acute disease. ATED BY: FLASH BERRY MD DICTATED DATE/TIME: 05/09/251834 SIGNED BY: FLASH BERRY MD SIGNED DATE/TIME: 05/09/251834 CC: [place] [id number] Ph: [phone] DIAGNOSTIC IMAGING Diagnostic Imaging Report : [id number] Signed PATIENT: BARBRA TRUJILLO ACCT: [id number] UNIT: [id number] : 1980 LOC: ER ROOM / BED: / AGE / SEX: 45 / M ADM STATUS: REG ER SERVICE 1355 ORDERING PHYSICIAN: LEONID SOLORIO DO PROCEDURE(s): ABPL - CT AB PEL WO CON-NO ORAL OR IV REASON: abd pain ORDER NUMBER(s): [id number], ACCESSION NUMBER(s): [id number] EXAM: CT CT AB PEL WO CON-NO ORAL OR IV HISTORY: abd pain Comparison Study: CT CT AB PEL WITH ORAL CON ONLY on DOS: 01/14/25 Exam Date: 05/09/2025 02:37 PM Radiation Dose Information: CT Dose: CTDI volume is of 12 mGy. Dose-length product is 563 mGy*cm Technique: Multidetector CT of the abdomen and pelvis was performed. Imaging was performed without IV contrast. Axial, coronal and sagittal multiplanar reformats were obtained from the axial data set by the technologist. Findings: Lack of intravenous contrast compromises evaluation of perfusion and for isodense lesions. Lower chest: Clear. Liver: 10 cm, AAST 4","Value":"Large laceration in the lobe measuring cm, AAST Grade 4"},{"Type":"Default Value","Name":"bilobar maceration, AAST 5","Value":"Severe bilobar maceration, AAST Grade 5"},{"Type":"Default Value","Name":"hematoma <1 cm, AAST 1","Value":"Small subcapsular hematoma in the lobe measuring cm, AAST Grade 1"},{"Type":"Default Value","N luiza":"hematoma 1-3 cm, AAST 2","Value":"Small subcapsular OR intraparenchymal hematoma in the lobe measuring cm, AAST Grade 2"},{"Type":"Default Value","Name":"hematoma 3-10 cm, AAST 3","Value":"Moderate subcapsular OR intraparenchymal hematoma in the lobe measuring cm, AAST Grade 3"},{"Type":"Default Value","Name":"hematoma >10 cm, AAST 4","Value":"Large subcapsular OR intraparenchymal hematoma in the lobe measuring cm, AAST Grade 4"},{"Type":"Default Value","Name":"devascularization, AAST 5","Value":"Complete parenchymal devascularization, AAST Grade 5"},{"Type":"Default Value","Name":"hepatic avulsion, AAST 6","Value":"Complete hepatic avulsion, AAST Grade 6"}],"Name":"Liver"}" macro-type="picklist" macro="Pick list Liver" defaultvalue="unremarkable" id="_[email or web address]" ignore- node="false" style="color:#[id number];">Unremarkable Biliary system: Unremarkable Spleen: 50% OR hematoma >5 cm, AAST 3","Value":"Subcapsular hematoma measuring cm in length OR intraparenchymal hematoma measuring cm, AAST Grade 3"},{"Type":"Default Value","Name":"lac >3 cm, AAST 3","Value":"Laceration measuring cm in length, AAST Grade 3"},{"Type":"Default Value","Name":"lac involving segmental/hilar vesels or major devascularization (>25%), AAST 4","Value":"Laceration involving segmental or hilar vessels OR producing major devascularization, AAST Grade 4"},{"Type":"Default Value","Name":"completely shattered, AAST 5","Value":"Completely shattered, AAST Grade 5"},{"Type":"Default Value","Name":"complete devascularization from hilar injury, AAST 5","Value":"Hilar vascular injury with complete devascularization, AAST Grade 5"}],"Name":"Spleen"}" macro-type="picklist" macro="Pick list Spleen" defaultvalue="unremarkable" id="_[id number]" ignore-node="false" styl e="color:#00bfff;">Unremarkable Pancreas: Unremarkable. Adrenals: Unremarkable. Kidneys and ureters: 1 cm, no urinary leak, AAST 3","Value":"Laceration in the kidney measuring up to cm without urinary contrast leak, AAST Grade 3"},{"Type":"Default Value","Name":"large lac extending to pelvis OR urinary leak, AAST 4","Value":"Large laceration in the kidney measuring cm extending to the renal pelvis AND/OR urinary leak, AAST Grade 4"},{"Type":"Default Value","Name":"main renal artery/vein injury, contained, AAST 4","Value":"Injury of the renal artery OR vein with contained hemorrhage, AAST Grade 4"},{"Type":"Default Value","Name":"shattered kidney, AAST 5","Value":"Completely shattered kidney with , AAST Grade 5"},{"Type":"Default Value","Name":"avulsion of renal hilum, AAST 5","Value":"Complete avulsion of the renal hilum with devascularization and "}],"Name":"Kidneys"}" macro-type="picklist" macro="Pick list Kidneys" defaultvalue="normal (+contrast studies)" id="_[id number]" ignore-node="false" style="color:#00bfff;">No hydronephrosis. Punctate nonobstructing left renal calculi. Bowel: Postsurgical changes in the colon with probable resection of the transverse colon with bilateral lower quadrant colostomies. No obstruction. Bladder: Unremarkable Reproductive organs: No abnormal mass. Lymph nodes: Unremarkable. Peritoneum: Unremarkable Vessels: Patency not evaluated on this noncontrast study. Bones and soft tissue: No aggressive osseous lesion. Mild chronic appearing T12 and L1 compression fracture deformities. Left hip fixation hardware. IMPRESSION: No acute CT findings in the abdomen and pelvis. Postsurgical changes in the colon. ATED BY: FLASH BERRY MD DICTATED DATE/TIME: 05/09/251829 SIGNED BY: FALSH BERRY MD SIGNED DATE/TIME: 05/09/251829 CC: Time of 1ST Reevaluation: 15:00 Reevaluation 1ST: Unchanged Time of 2ND Reevaluation: 21:35 (Patient has just revealed to me that his oxycodone is with the his relative who left town with the bottle and he has been out of his medicine for two weeks consistent with my initial impression of opioid withdrawal. Patient will follow up with pain management.) Patient Education/Counseling: Diagnosis, Treatment Family Education/Counseling: No Family Present Comments PATIENT IS REQUESTING FOOD TO EAT. I SUSPECT OPIATE WITHDRAWAL THE MAIN UNDERLYING ETIOLOGY. MDM: patient presented with the above HPI.--generalized body pain and recurrent abdominal pain----workup was initiated. patient was found with the above mentioned diagnosis. the following medications were ordered: please refer to order lists of meds and tests obtained by myself Dr. Solorio. Patient ED course and VS have been stabilized. Patient has been reassessed in the ED and remained in a stable condition. Pertinent incidental findings were discussed with the patient and/or family. Patient/family voices understanding and is agreeable with plan. Patient has been observed in the ED adequate length of time to insure improvement/stability. Escalation of care considered: Consideration of escalation to observation or admission Patient has follow up with the pain management. Patient has opiate dependence. Patient was DISCHARGED home in a stable condition. All the reports of any imaging studies that were ordered by myself were reviewed by myself. Departure 1 Departure Time of Disposition: 14:26 Impression: Primary Impression: Acute generalized body pain Additional Impression: Opioid dependence Disposition: 01 HOME / SELF CARE / HOMELESS Condition: Stable Additional Instructions: Additional instructions: Please read all instructions provided in this packet carefully. You MUST follow-up with your primary care/family doctor in 1 to 2 days. If you are unable to see your primary care/family doctor, please return to our emergency room for re-assessment and re-evaluation in 1 to 2 days. Return to the emergency room here in our facility or to the nearest ER [facility] if your symptoms change or worsen. CONSULTATIONS: you MUST Follow-up for consultation as soon as possible with: ----gastroenterology and cardiology as needed. Please call for appointment. Also follow up with the pain management. You MUST call the consultants office yourself to make an appointment. You may need to arrange that through your insurance and/or your primary/family doctor. If you are unable to see the mental hygiene consultant in 1 to 2 days, you must return to our emergency room (or any other ER of your choice) for re-assessment and re- evaluation. Adequate fluid hydration. Although you have been discharged from the Emergency Department, this does not mean that you have a "clean bill of health". No definitive diagnosis for your symptoms has been made today. It is possible that you are in the process of developing a serious illness. This is why you must return to the ED without fail if any new or worsening symptoms develop. Below is a copy of your radiological report for follow up: [place] [id number] Ph: [phone] DIAGNOSTIC IMAGING Diagnostic Imaging Report : [id number] Signed PATIENT: BARBRA TRUJILLO ACCT: [id number] UNIT: [id number] : 1980 LOC: ER ROOM / BED: / AGE / SEX: 45 / M ADM STATUS: REG ER SERVICE 1355 ORDERING PHYSICIAN: LEONID SOLORIO DO PROCEDURE(s): ABPL - CT AB PEL WO CON-NO ORAL OR IV REASON: abd pain ORDER NUMBER(s): [id number], ACCESSION NUMBER(s): [id number] EXAM: CT CT AB PEL WO CON-NO ORAL OR IV HISTORY: abd pain Comparison Study: CT CT AB PEL WITH ORAL CON ONLY on DOS: 01/14/25 Exam Date: 05/09/2025 02:37 PM Radiation Dose Information: CT Dose: CTDI volume is of 12 mGy. Dose-length product is 563 mGy*cm Technique: Multidetector CT of the abdomen and pelvis was performed. Imaging was performed without IV contrast. Axial, coronal and sagittal multiplanar reformats were obtained from the axial data set by the technologist. Findings: Lack of intravenous contrast compromises evaluation of perfusion and for isodense lesions. Lower chest: Clear. Liver: 10 cm, AAST 4","Value":"Large laceration in the lobe measuring cm, AAST Grade 4"},{"Type":"Default Value","Name":"bilobar maceration, AAST 5","Value":"Severe bilobar maceration, AAST Grade 5"},{"Type":"Default Value","Name":"hematoma <1 cm, AAST 1","Value":"Small subcapsular hematoma in the lobe measuring cm, AAST Grade 1"},{"Type":"Default Value","Name":"hematoma 1-3 cm, AAST 2","Value":"Small subcapsular OR intraparenchymal hematoma in the lobe measuring cm, AAST Grade 2"},{"Type":"Default Value","Name":"hematoma 3-10 cm, AAST 3","Value":"Moderate subcapsular OR intraparenchymal hematoma in the lobe measuring cm, AAST Grade 3"},{"Type":"Default Value","Name":"hematoma >10 cm, AAST 4","Value":"Large subcapsular OR intraparenchymal hematoma in the lobe measuring cm, AAST Grade 4"},{"Type":"Default Value","Name":"devascularization, AAST 5","Value":"Complete parenchymal devascularization, AAST Grade 5"},{"Type":"Default Value","Name":"hepatic avulsion, AAST 6","Value":"Complete hepatic avulsion, AAST Grade 6"}],"Name":"Liver"}" macro-type="picklist" macro="Pick list Liver" defaultvalue="unremarkable" id="_[email or web address]" ignore-node="false" style="color:#[id number];">Unremarkable Biliary system: Unremarkable Spleen: 50% OR hematoma >5 cm, AAST 3","Value":"Subcapsular hematoma measuring cm in length OR intraparenchymal hematoma measuring cm, AAST Grade 3"},{"Type":"Default Value","Name":"lac >3 cm, AAST 3","Value":"Laceration measuring cm in length, AAST Grade 3"},{"Type":"Default Value","Name":"lac involving segmental/hilar vesels or major devascularization (>25%), AAST 4","Value":"Laceration involving segmental or hilar vessels OR producing major devascularization, AAST Grade 4"},{"Type":"Default Value","Name":"completely shattered, AAST 5","Value":"Completely shattered, AAST Grade 5"},{"Type":"Default Value","Name":"complete devascularization from hilar in jury, AAST 5","Value":"Hilar vascular injury with complete devascularization, AAST Grade 5"}],"Name":"Spleen"}" macro-type="picklist" macro="Pick list Spleen" defaultvalue="unremarkable" [id number]" ignore-node="false" style="color:#[id number];">Unremarkable Pancreas: Unremarkable. Adrenals: Unremarkable. Kidneys and ureters: 1 cm, no urinary leak, AAST 3","Value":"Laceration in the kidney measuring up to cm without urinary contrast leak, AAST Grade 3"},{"Type":"Default Value","Name":"large lac extending to pelvis OR urinary leak, AAST 4","Value":"Large laceration in the kidney measuring cm extending to the renal pelvis AND/OR urinary leak, AAST Grade 4"},{"Type":"Default Value","Name":"main renal artery/vein injury, contained, AAST 4","Value":"Injury of the renal artery OR vein with contained hemorrhage, AAST Grade 4"},{"Type":"Default Value","Name":"shattered kidney, AAST 5","Value":"Completely shattered kidney with , AAST Grade 5"},{"Type":"Default Value","Name":"avulsion of renal hilum, AAST 5","Value":"Complete avulsion of the renal hilum with devascularization and "}],"Name":"Kidneys"}" macro-type="picklist" macro="Pick list Kidneys" defaultvalue="normal (+contrast studies)" id="_[id number]" ignore-node="false" style="color:#[id number];">No hydronephrosis. Punctate nonobstructing left renal calculi. Bowel: Postsurgical changes in the colon with probable resection of the transverse colon with bilateral lower quadrant colostomies. No obstruction. Bladder: Unremarkable Reproductive organs: No abnormal mass. Lymph nodes: Unremarkable. Peritoneum: Unremarkable Vessels: Patency not evaluated on this noncontrast study. Bones and soft tissue: No aggressive osseous lesion. Mild chronic appearing T12 and L1 compression fracture deformities. Left hip fixation hardware. IMPRESSION: No acute CT findings in the abdomen and pelvis. Postsurgical changes in the colon. ATED BY: FLASH BERRY MD DICTATED DATE/TIME: 05/09/251829 SIGNED BY: FLASH BERRY MD SIGNED DATE/TIME: 05/09/251829 CC: Discharged With: Self Critical Care Note Critical Care Time?: No I personally scribed for LEONID SOLORIO DO ([email or web address]) on 05/09/25 at 14:04. Electronically submitted by Tyree Lyles ([email or web address]). I personally scribed for LEONID SOLORIO DO ([email or web address]) on 05/09/25 at 21:46. Electronically submitted by Eunice Aguirre ([email or web address]). LEONID SOLORIO DO May 09, 2025 14:04
[2025-05-09 14:30] LABS: Hematocrit 39.4 % (41.0-53.0); Hemoglobin 12.8 g/dL (13.5-17.5); Mean Corpuscular Hemoglobin 26.2 pg (28.0-32.0); Mean Corpuscular Volume 80.4 fL (80.0-100.0); Nucleated Red Blood Cells % 0.0 %
[2025-05-09 15:37] LABS: Alanine Aminotransferase 11 U/L (7-40); Albumin 4.7 g/dL (3.2-4.8); Alkaline Phosphatase 61 U/L (46-116); Anion Gap 15 (5-15); BUN/Creatinine Ratio 18.6 (10.0-20.0); Bilirubin, Total 0.3 mg/dL (0.2-1.0); Blood Urea Nitrogen 11 mg/dL (9-23); Calcium 9.5 mg/dL (8.7-10.4); Glucose 90 mg/dL (74-106); Lipase 37 U/L (12-53); Magnesium 1.8 mg/dL (1.6-2.6); Potassium 4.4 mmol/L (3.5-5.1); Sodium 140 mmol/L (136-145); Total Protein 7.7 g/dL (5.7-8.2)
[2025-05-09 15:38] LABS: Carbon Dioxide 18 mmol/L (20-31); Chloride 107 mmol/L (98-107)
[2025-05-09 15:50] LABS: Creatine Kinase IFCC 42 U/L (46-171)
[2025-05-09 17:19] LABS: Urine Protein, UAD Negative (Negative)
[2025-05-09 17:57] VITALS: BP 119/93; PULSE 100; RESP 16; TEMP 99; O2SAT 99
[2025-05-09] MEDS: HYDROcodone-ACET 5/325MG TAB PO ONE ×2 (18:30→21:45)
--- NOTE | 2025-05-09 18:32 | DVH ---
EXAM: CT CT AB PEL WO CON-NO ORAL OR IV HISTORY: abd pain Comparison Study: CT CT AB PEL WITH ORAL CON ONLY on DOS: 01/14/25 Exam Date: 05/09/2025 02:37 PM Radiation Dose Information: CT Dose: CTDI volume is of 12 mGy. Dose-length product is 563 mGy*cm Technique: Multidetector CT of the abdomen and pelvis was performed. Imaging was performed without IV contrast. Axial, coronal and sagittal multiplanar reformats were obtained from the axial data set by the technologist. Findings: Lack of intravenous contrast compromises evaluation of perfusion and for isodense lesions. Lower chest: Clear. Liver: 10 cm, AAST 4","Value":"Large laceration in the lobe measuring cm, AAST Grade 4"},{"Type":"Default Value","Name":"bilobar maceration, AAST 5","Value":"Severe bilobar maceration, AAST Grade 5"},{"Type":"Default Value","Name":"hematoma <1 cm, AAST 1","Value":"Small subcapsular hematoma in the lobe measuring cm, AAST Grade 1"},{"Type":"Default Value","Name":"hematoma 1-3 cm, AAST 2","Value":"Small subcapsular OR intraparenchymal hematoma in the lobe measuring cm, AAST Grade 2"},{"Type":"Default Value","Name":"hematoma 3-10 cm, AAST 3","Value":"Moderate subcapsular OR intraparenchymal hematoma in the lobe measuring cm, AAST Grade 3"},{"Type":"Default Value","Name":"hematoma >10 cm, AAST 4","Value":"Large subcapsular OR intraparenchymal hematoma in the lobe me asuring cm, AAST Grade 4"},{"Type":"Default Value","Name":"devascularization, AAST 5","Value":"Complete parenchymal devascularization, AAST Grade 5"},{"Type":"Default Value","Name":"hepatic avulsion, AAST 6","Value":"Complete hepatic avulsion, AAST Grade 6"}],"Name":"Liver"}" macro-type="picklist" macro="Pick list Liver" defaultvalue="unremarkable" id="_[id number]" ignore-node="false" style="color: #[id number];">Unremarkable Biliary system: Unremarkable Spleen: 50% OR hematoma >5 cm, AAST 3","Value":"Subcapsular hematoma measuring cm in length OR intraparenchymal hematoma measuring cm, AAST Grade 3"},{"Type":"Default Value","Name":"lac >3 cm, AAST 3","Value":"Laceration measuring cm in length, AAST Grade 3"},{"Type":"Default Value","Name":"lac involving segmental/hilar vesels or major devascularization (>25%), AAST 4","Value":"Laceration involving segmental or hilar vessels OR producing major devascularization, AAST Grade 4"},{"Type":"Default Value","Name":"completely shattered, AAST 5","Value":"Completely shattered, AAST Grade 5"},{"Ty pe":"Default Value","Name":"complete devascularization from hilar injury, AAST 5","Value":"Hilar vascular injury with complete devascularization, AAST Grade 5"}],"Name":"Spleen"}" macro-type="picklist" macro="Pick list Spleen" defaultvalue="unremarkable" id="_[id number]" ignore-node="false" style="color :#[id number];">Unremarkable Pancreas: Unremarkable. Adrenals: Unremarkable. Kidneys and ureters: 1 cm, no urinary leak, AAST 3","Value":"Laceration in the kidney measuring up to cm without urinary contrast leak, AAST Grade 3"},{"Type":"Default Value","Name":"large lac extending to pelvis OR urinary leak, AAST 4","Value":"Large laceration in the kidney measuring cm extending to the renal pelvis AND/OR urinary leak, AAST Grade 4"},{"Type":"Default Value","Name":"main renal artery/vein injury, contained, AAST 4","Value":"Injury of the renal artery OR vein with contained hemorrhage, AAST Grade 4"},{"Type":"Default Value","Name":"shattered kidney, AAST 5","Value":"Completely shattered kidney with , AAST Grade 5"},{"Type":"Default Value","Name":"avulsion of renal hilum, AAST 5","Value":"Complete avulsion of the renal hilum with devascularization and "}],"Name":"Kidneys"}" macro-type="picklist" macro="Pick list Kidneys" defaultvalue="normal (+contrast studies)" id="_[id number]" ignore-node="false" style="color:#[id number];">No hydronephrosis. Punctate nonobstructing left renal calculi. Bowel: Postsurgical changes in the colon with probable resection of the transverse colon with bilateral lower quadrant colostomies. No obstruction. Bladder: Unremarkable Reproductive organs: No abnormal mass. Lymph nodes: Unremarkable. Peritoneum: Unremarkable Vessels: Patency not evaluated on this noncontrast study. Bones and soft tissue: No aggressive osseous lesion. Mild chronic appearing T12 and L1 compression fracture deformities. Left hip fixation hardware. IMPRESSION: No acute CT findings in the abdomen and pelvis. Postsurgical changes in the colon.
--- NOTE | 2025-05-09 18:37 | DVH ---
CHEST RADIOGRAPH Indication: cp Technique: Single frontal view of the chest was obtained COMPARISON: XY CHEST PORTABLE on DOS: 02/12/25, XY CHEST XRAY 1 VIEW on DOS: 02/11/25, XY CHEST PORTABLE on DOS: 02/09/25, XY CHEST PORTABLE on DOS: 02/09/25, XY CHEST XRAY 1 VIEW on DOS: 02/09/25 FINDINGS: Lungs and pleural spaces are clear. Cardiac silhouette and yusuf are within normal limits. Bones and soft tissues demonstrate no significant abnormality. IMPRESSION: No acute disease.
--- NOTE | 2025-05-09 19:09 | ECG ---
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
== END 2025-05-09 23:00 | disposition home or self-care (01) ==
LOC: ER 13:46 → EDBD 13:46 → ER 23:00
DX: R07.89 Other chest pain (principal); R51.9 Headache, unspecified; R25.1 Tremor, unspecified; F11.20 Opioid dependence, uncomplicated; Z79.899 Other long term (current) drug therapy; Z93.3 Colostomy status; Z88.6 Allergy status to analgesic agent; Z87.820 Personal history of traumatic brain injury; Z86.718 Personal history of other venous thrombosis and embolism; Z79.01 Long term (current) use of anticoagulants
CPT/HCPCS: 36415; 71045; 74176; 80053; 81001; 82550; 83605; 83690; 83735; 84484; 85025; 93005